=== PATIENT | female | born 1940 | race Caucasian/White ===

== ENCOUNTER 2018-12-22 10:45 | Emergency (ER) | payer OTHER ==
--- NOTE | 2018-12-22 13:55 | ER ---
Nurse's Notes [facility] Name: Yeison Ellis Age: 78 yrs Sex: Female : 1940 Arrival Date: 12/22/2018 Time: 10:47 Bed 2 Private MD: Diagnosis: Other disorders of skin and subcutaneous tissue, not elsewhere classified Presentation: 12/22 10:52 Presenting complaint: Patient states: wound to the LLE for about a month, unknown if sv she got bit by an insect. Transition of care: patient was not received from another setting of care. Onset of symptoms was November 2018. Risk Assessment: Do you want to hurt yourself or someone else? Patient reports no desire to harm self or others. Care prior to arrival: None. 10:52 Method Of Arrival: Ambulatory sv 10:52 Acuity: ALEXIS 3 sv 10:52 Initial Sepsis Screen: Does the patient meet any 2 criteria? No. Patient's initial bp sepsis screen is negative. Does the patient have a suspected source of infection? No. Patient's initial sepsis screen is negative. Triage Assessment: 10:55 Bite description: bite sustained to medial aspect of left calf is infected, by an sv unknown animal, animal information: vaccination(s) is unknown. General: Appears in no apparent distress. comfortable, Behavior is calm, cooperative, appropriate for age. Neuro: Level of Consciousness is awake, alert, obeys commands, Gait is steady. Respiratory: Respiratory effort is even, unlabored, Respiratory pattern is regular, symmetrical. Derm: Wound noted Wound is open, pt reports using hydrogen peroxide and cream daily. Musculoskeletal: Swelling present in left leg. Historical: - Allergies: 10:53 Darvocet-N 100; sv 10:53 EGG/POULTRY; sv - PMHx: 10:53 Arthritis; Hypertension; Kidney stones; Myocardial infarction; sv - PSHx: 10:53 Tubal ligation; Hysterectomy; sv - Immunization history:: Adult Immunizations up to date. - Social history:: Smoking status: Patient/guardian denies using tobacco. - Ebola Screening: : No symptoms or risks identified at this time. Screenin:16 Abuse screen: Denies threats or abuse. Denies injuries from another. Nutritional bp screening: No deficits noted. Tuberculosis screening: No symptoms or risk factors identified. Fall Risk None identified. Assessment: 10:55 General: Appears in no apparent distress. comfortable, Behavior is cooperative, bp appropriate for age, anxious. Pain: Denies pain. Neuro: No deficits noted. Cardiovascular: No deficits noted. Respiratory: No deficits noted. GI: No signs and/or symptoms were reported involving the gastrointestinal system. : No signs and/or symptoms were reported regarding the genitourinary system. EENT: No deficits noted. Derm: Skin is thin, Skin is normal, Wound noted Other: SCATTERED LESIONS. Musculoskeletal: No deficits noted. 14:16 Reassessment: PT D/C HOME AMBULATORY WITH FAMILY, DX WITH D/O OF SKIN AND CUTANEOUS bp TISSUE. Vital Signs: 10:53 BP 144 / 57; Pulse 71; Resp 16; Temp 99.2; Pulse Ox 99% ; Weight 72.57 kg; Height 5 ft. sv 2 in. (157.48 cm); 10:53 Body Mass Index 29.26 (72.57 kg, 157.48 cm) sv ED Course: 10:47 Patient arrived in ED. as 10:53 Triage completed. sv 10:55 Arm band placed on. sv 11:15 Gladys Trevino FNP-C is PHCP. snw 11:15 Jim Delgado MD is Attending Physician. snw 13:27 Barbara Grubbs RN is Primary Nurse. tw2 14:16 Patient has correct armband on for positive identification. Bed in low position. Call bp light in reach. Side rails up X2. 14:16 No provider procedures requiring assistance completed. Patient did not have IV access bp during this emergency room visit. Administered Medications: 13:58 Drug: Clindamycin 300 mg Route: PO; bp 14:13 Follow up: Response: No adverse reaction bp 13:58 Drug: Tetanus-Diphtheria Toxoid Adult 0.5 ml {Etl Lead: [employer]. Exp: bp 08/19/2020. Lot #: [id number]. } Route: IM; Site: left deltoid; 14:13 Follow up: Response: No adverse reaction bp 14:13 Drug: Hibiclens 4 % 1 application Route: Topical; Site: affected area; bp Outcome: 13:55 Discharge ordered by MD. snw 14:16 Discharged to home ambulatory, with family. bp 14:16 Condition: stable 14:16 Discharge instructions given to patient, Instructed on discharge instructions, follow up and referral plans. medication usage, wound care, Demonstrated understanding of instructions, follow-up care, medications, wound care, Prescriptions given X 2. 14:17 Patient left the ED. bp Signatures: Hortensia Gomez, RN RN sv Gladys Trevino, MULTIMEDIA SPECIALIST-C MULTIMEDIA SPECIALIST-Csnw Chiquita Wooten Tara, RN RN tw2 Daniel Pineda RN RN bp Corrections: (The following items were deleted from the chart) 10:56 10:53 Pulse 71bpm; Resp 16bpm; Pulse Ox 99%; Temp 99.2F; 72.57 kg; Height 5 ft. 2 in.; sv BMI: 29.2; sv
--- NOTE | 2018-12-22 13:56 | EDPHYS ---
Physician Documentation [facility] Name: Yeison Ellis Age: 78 yrs Sex: Female : 1940 Arrival Date: 12/22/2018 Time: 10:47 Bed 2 Private MD: NITA Physician Jim Delgado HPI: 12/22 13:50 This 78 yrs old Female presents to ER via Ambulatory with complaints of snw Insect Bite. 13:50 The patient's rash thought to be caused by Dermatitis. The rash is located on the left snw leg and medial aspect of left calf, right shoulder. The rash can be described as patchy, excoriated lesions that are new with surrounding healed scars from similar episodes. Onset: The symptoms/episode began/occurred last month. Associated signs and symptoms: Pertinent positives: None. Treatment given at home: aloe, packing with creams, etc. The patient has experienced similar episodes in the past. It is unknown whether or not the patient has recently seen a physician. encouraged to keep nails short. Historical: - Allergies: 10:53 Darvocet-N 100; sv 10:53 EGG/POULTRY; sv - PMHx: 10:53 Arthritis; Hypertension; Kidney stones; Myocardial infarction; sv - PSHx: 10:53 Tubal ligation; Hysterectomy; sv - Immunization history:: Adult Immunizations up to date. - Social history:: Smoking status: Patient/guardian denies using tobacco. - Ebola Screening: : No symptoms or risks identified at this time. ROS: 13:43 Constitutional: Negative for fever, chills, and weight loss, Eyes: Negative for injury, snw pain, redness, and discharge, ENT: Negative for injury, pain, and discharge, Neck: Negative for injury, pain, and swelling, Cardiovascular: Negative for chest pain, palpitations, and edema, Respiratory: Negative for shortness of breath, cough, wheezing, and pleuritic chest pain, Abdomen/GI: Negative for abdominal pain, nausea, vomiting, diarrhea, and constipation, Back: Negative for injury and pain, : Negative for injury, bleeding, discharge, and swelling, MS/Extremity: Negative for injury and deformity, Neuro: Negative for headache, weakness, numbness, tingling, and seizure, Psych: Negative for depression, anxiety, suicide ideation, homicidal ideation, and hallucinations. 13:43 Skin: Positive for concern for non-healing insect bites. Exam: 13:43 Constitutional: This is a well developed, well nourished patient who is awake, alert, snw and in no acute distress. Head/Face: Normocephalic, atraumatic. Eyes: Pupils equal round and reactive to light, extra-ocular motions intact. Lids and lashes normal. Conjunctiva and sclera are non-icteric and not injected. Cornea within normal limits. Periorbital areas with no swelling, redness, or edema. ENT: Nares patent. No nasal discharge, no septal abnormalities noted. Tympanic membranes are normal and external auditory canals are clear. Oropharynx with no redness, swelling, or masses, exudates, or evidence of obstruction, uvula midline. Mucous membranes moist. Neck: Trachea midline, no thyromegaly or masses palpated, and no cervical lymphadenopathy. Supple, full range of motion without nuchal rigidity, or vertebral point tenderness. No Meningismus. Chest/axilla: Normal chest wall appearance and motion. Nontender with no deformity. No lesions are appreciated. Cardiovascular: Regular rate and rhythm with a normal S1 and S2. No gallops, murmurs, or rubs. Normal PMI, no JVD. No pulse deficits. Respiratory: Lungs have equal breath sounds bilaterally, clear to auscultation and percussion. No rales, rhonchi or wheezes noted. No increased work of breathing, no retractions or nasal flaring. Abdomen/GI: Soft, non-tender, with normal bowel sounds. No distension or tympany. No guarding or rebound. No evidence of tenderness throughout. Back: No spinal tenderness. No costovertebral tenderness. Full range of motion. MS/ Extremity: Pulses equal, no cyanosis. Neurovascular intact. Full, normal range of motion. Neuro: Awake and alert, GCS 15, oriented to person, place, time, and situation. Cranial nerves II-XII grossly intact. Motor strength 5/5 in all extremities. Sensory grossly intact. Cerebellar exam normal. Normal gait. 13:43 Skin: Appearance: normal except for affected area, many scarred areas to extremities and upper shoulders from previous "sores", pt with long nails and evidence of recurrent picking. Talks about maybe seeing black bugs come from different sores, packs wounds with aloe and creams. Pt with some psychogenic parasitosis behaviors. 13:43 Psych: Behavior/mood is pleasant, cooperative, anxious, Affect is animated, Oriented to person, place, time, Patient has no thoughts/intents to harm self or others. psychogenic parasitosis type conversation. Wounds are not currently infected but are excoriated.. Vital Signs: 10:53 BP 144 / 57; Pulse 71; Resp 16; Temp 99.2; Pulse Ox 99% ; Weight 72.57 kg; Height 5 ft. sv 2 in. (157.48 cm); 10:53 Body Mass Index 29.26 (72.57 kg, 157.48 cm) sv MDM: 13:02 Patient medically screened. snw 13:56 Data reviewed: vital signs, nurses notes. Data interpreted: Pulse oximetry: on room air snw is 99 %. Interpretation: normal. Counseling: I had a detailed discussion with the patient and/or guardian regarding: the historical points, exam findings, and any diagnostic results supporting the discharge/admit diagnosis, the presence of at least one elevated blood pressure reading (>120/80) during this emergency department visit, the need for outpatient follow up, to return to the emergency department if symptoms worsen or persist or if there are any questions or concerns that arise at home. Special discussion: Based on the history and exam findings, there is no indication for further emergent testing or inpatient evaluation. I discussed with the patient/guardian the need to see the paper core machine operator for further evaluation of the symptoms. I discussed with the patient/guardian the need to see the primary care provider for further evaluation of the symptoms. Administered Medications: 13:58 Drug: Clindamycin 300 mg Route: PO; bp 14:13 Follow up: Response: No adverse reaction bp 13:58 Drug: Tetanus-Diphtheria Toxoid Adult 0.5 ml {Accountant Budget: [employer]. Exp: bp 08/19/2020. Lot #: [id number]. } Route: IM; Site: left deltoid; 14:13 Follow up: Response: No adverse reaction bp 14:13 Drug: Hibiclens 4 % 1 application Route: Topical; Site: affected area; bp Disposition: 12/23 07:47 Co-signature as Attending Physician, Jim Delgado MD I agree with the assessment and lily plan of care. Disposition: 09/16/19 13:55 Discharged to Home. Impression: Other disorders of skin and subcutaneous tissue, not elsewhere classified. - Condition is Stable. - Discharge Instructions: Rash. - Prescriptions for Hibiclens - wash 1 application by TOPICAL route 2 times per day; 1 bottle. Clindamycin HCl 300 mg Oral Capsule - take 1 capsule by ORAL route every 8 hours for 10 days; 30 capsule. - Medication Reconciliation Form, Thank You Letter, Antibiotic Education, Prescription Opioid Use form. - Follow up: Private Physician; When: 5 - 6 days; Reason: Recheck today's complaints, Continuance of care, Re-evaluation by your physician. Follow up: Emergency Department; When: As needed; Reason: Worsening of condition. Signatures: Hortensia Gomez, RN RN Jim Samano MD MD cha Therrien, Shelly, GARY-C TOOL AND DIE MANAGER-[place] Daniel Pineda RN RN bp Corrections: (The following items were deleted from the chart) 12/22 14:17 13:55 12/22/2018 13:55 Discharged to Home. Impression: Other disorders of skin and bp subcutaneous tissue, not elsewhere classified. Condition is Stable. Forms are Medication Reconciliation Form, Thank You Letter, Antibiotic Education, Prescription Opioid Use. Follow up: Private Physician; When: 5 - 6 days; Reason: Recheck today's complaints, Continuance of care, Re-evaluation by your physician. Follow up: Emergency Department; When: As needed; Reason: Worsening of condition. snw
[2018-12-22 14:31] VITALS: BP 144/57; TEMP 99.2; O2SAT 99
== END 2018-12-22 14:17 | disposition home or self-care (01) ==
LOC: ER 10:45
DX: L98.8 Other specified disorders of the skin and subcutaneous tissue (principal); W57.XXXA Bitten or stung by nonvenomous insect and other nonvenomous arthropods, initial encounter; Z23 Encounter for immunization; Z88.5 Allergy status to narcotic agent; Z91.012 Allergy to eggs; Z91.018 Allergy to other foods; I10 Essential (primary) hypertension
CPT/HCPCS: 90471; 99283

== ENCOUNTER 2019-05-25 07:22 | Day surgery (SDC) | payer OTHER ==
[2019-05-21 17:22] LABS: Protime INR 0.98
[2019-05-21 17:23] LABS: Absolute Lymphocytes (CBC) 1.7 K/uL (0.7-4.9); Basophils % 1.3 % (0-1.3); Hematocrit 33.2 % (36.0-45.0); MPV 8.5 fL (7.6-11.3); RBC Red Blood Cell Count 3.59 M/uL (3.86-4.86)
[2019-05-21 17:27] LABS: Potassium 4.9 mmol/L (3.5-5.1)
--- NOTE | 2019-05-21 17:31 | RAD REPORT ---
EXAM DESCRIPTION: RAD - Chest Pa And Lat (2 Views) - 05/21/2019 5:07 pm CLINICAL HISTORY: preoppreop chest, patient pending cardiac stenting procedure COMPARISON: Chest Single View dated 03/07/2017; Chest Single View dated 03/01/2017 TECHNIQUE: Frontal and lateral views of the chest were obtained. FINDINGS: The lungs are normal volume. Mild chronic interstitial lung disease present at each base. Findings are slightly worse in the left base. No dense consolidation component. No failure or volume overload. Heart size is normal and central vasculature is within normal limits. No pleural effusio n or pneumothorax seen. No acute bony finding noted. No aortic abnormality. IMPRESSION: Mild left base interstitial pneumonia superimposed on a mild chronic lung disease patter brad
[~2019-05-25 07:22] MED LIST: HEPA 1000U/500MLS 2,000 UNIT/1,000 ML BAG IV ONE; LIDOCAINE 1% 20 ML MDV ONE
[2019-05-25] MEDS ORDERED: NA CHLORIDE 0.9% 500 ML ONE (07:34)
[2019-05-25] MEDS ORDERED: ATROPINE SULF 1 MG/10 ML SYR IV ONE (08:07)
[2019-05-25] MEDS ORDERED: FENTANYL CITR 100 MCG/2 ML ONE ×2 (08:07→08:51)
[2019-05-25] MEDS ORDERED: MIDAZOLAM HCL 2 MG/2 ML INJ ONE ×3 (08:07→08:42)
[2019-05-25] MEDS ORDERED: NA CHLORIDE 0.9% 50 ML ONE (08:07)
[2019-05-25] MEDS ORDERED: NITROGLYCERIN/D5W 25 MG/250 ML BTL IV ONE (08:08)
[2019-05-25] MEDS ORDERED: NITROGLYCERIN 100 MCG/ML SYR (for cath lab use only) IV ONE (08:08)
[2019-05-25] MEDS ORDERED: FLUMAZENIL 0.1 MG/ML (5 mL VIAL) IV ONE (08:23)
[2019-05-25] MEDS ORDERED: PRASUGREL (EFFIENT) 10 MG TAB ONE (09:06)
[2019-05-25] MEDS ORDERED: ZOLPIDEM TARTRATE 10 MG TABLET PO PRN (09:13)
[2019-05-25] MEDS ORDERED: FENTANYL CITR 100 MCG/2 ML IV PRN (09:13)
[2019-05-25] MEDS ORDERED: HYDROCODONE/APAP 10/325 TAB ONE (10:49)
--- NOTE | 2019-05-25 11:50 | OP ---
Surgeon: Ed Brown MD Identification: Mrs. Ellis is 78. Procedure: Left heart catheterization, coronary angiography. No LV gram was done to reduce contrast exposure. We did a percutaneous coronary intervention. A stent was placed in the main body of her circumflex segment 19. Successful stent to treat what looks like the culprit lesion. Procedure Findings: The patient has diffuse CAD. No portion of the coronary arteries is normal. He r left main is short and it gives rise to a circumflex. The ostium of the circumflex has a 50% lesio n. It branches into 2 major branches. Before it branches, there is a 90% stenosis. In the larger o f the 2 branches, there is an old stent and just previous to the stent, but in the OM, there is a smo oth 50% lesion that did not look clinically significant. After the stent, the lesion in the body of the circumflex had about a 10% stenosis. The LAD is free of any significant stenosis. There are num erous 30% to 40% stenoses and a patent stent in the proximal and mid section. The right coronary art waldemar has no stents in it. There is a 50% proximal lesion that looks fairly smooth and likely not to b e the culprit lesion. Procedure In Detail: The patient had tiny radial arteries and a poor Fili's test, so we elected to use the right femoral artery. She was prepared and draped in usual sterile fashion. She was pretrea carson with steroids to avoid contrast allergy. We entered the artery using an 18-gauge needle, cannula carson it with a guidewire, placed a 4-Belgian sheath. We took angiograms with a 4-Belgian JL4 and 4-Fren 3DRC. After decision was made to stent the circumflex, we changed to a 6-Belgian sheath. We place d a 6-Belgian XB3.5 with side holes, but it would not engage the left ostium, the curve was too large, so we changed to an XB3.0. This engaged the left main ostium nicely. We were able to pass a wire a cross the lesion. We then placed a stent across the lesion, inflated it to 14 atmospheres. The sten t was a 2.5 x 12 Synergy. At the end of the procedure, adequate angiography was seen. All the hardw are was withdrawn but of course, the stent was left in place. An angiogram was done of the femoral a rtery. We could see that the sheath went in at least 1 cm above the bifurcation so we are going to u se Angio-Seal to close. She received Angiomax for activated clotting time, was 390 seconds. We pull ed the sheath when the activated clotting time was less than 300 seconds. JANIS/AUDRA Voice ID: [id number] Report ID: [id number]
[2019-05-25 12:04] VITALS: BMI 29.4
[2019-05-25] MEDS: HYDROCODONE/APAP 10/325 TAB PO PRN (14:54)
[2019-05-25] MEDS: SILVER SULFADIAZINE 1% 50 GM TOP SCH (17:52)
[2019-05-25] MEDS: METOPROLOL TAR 25 MG TAB PO SCH (19:25)
[2019-05-26 05:00] LABS: Hematocrit 29.2 % (36.0-45.0); RBC Red Blood Cell Count 3.17 M/uL (3.86-4.86)
[2019-05-26 05:08] LABS: Potassium 4.3 mmol/L (3.5-5.1)
[2019-05-26] MEDS: METOPROLOL TAR 25 MG TAB PO SCH (05:19)
[2019-05-26] MEDS: HYDROCODONE/APAP 10/325 TAB PO PRN ×2 (07:59→16:32)
[2019-05-26] MEDS ORDERED: FAMOTIDINE 20 MG TAB PO SCH (09:00)
[2019-05-26] MEDS ORDERED: CLOPIDOGREL 75 MG TABLET PO SCH (09:00)
[2019-05-26] MEDS ORDERED: ramipriL 5 MG CAP PO SCH (09:00)
[2019-05-26 11:28] VITALS: O2SAT 99
[2019-05-26] MEDS: SILVER SULFADIAZINE 1% 50 GM TOP SCH (12:09)
--- NOTE | 2019-05-26 13:35 | PN ---
Subjective: Ms. Ellis was admitted by Dr. Brown yesterday as an outpatient. She underwent a heart catheterization and a stent. There was no complication during the procedure. Postoperatively, her r ight groin is intact. She has no hematoma. Good distal pulses in the right dorsalis pedis and poste rior tibial. Telemetry is normal. She has no chest pain. Objective: Chest: Clear. Cardiac: Normal. Plan: She will be going home today on aspirin, Plavix, statin, and a beta-ilya. She has these me dications at home. She will go home today and see us in the office in the next 2 weeks. PASHA/AUDRA Voice ID: [id number] Report ID: [id number]
[2019-05-26 17:17] VITALS: BP 147/65; TEMP 98.3
== END 2019-05-26 18:12 | disposition home or self-care (01) ==
LOC: CCL 07:22 → 2ND 09:07 → CCL 05-26 18:12
PROVIDERS: ATTEND Internal Medicine
DX: I25.110 Atherosclerotic heart disease of native coronary artery with unstable angina pectoris (principal); I70.25 Atherosclerosis of native arteries of other extremities with ulceration; I10 Essential (primary) hypertension; E11.9 Type 2 diabetes mellitus without complications; Z95.5 Presence of coronary angioplasty implant and graft; Z91.041 Radiographic dye allergy status; Z79.02 Long term (current) use of antithrombotics/antiplatelets; Z79.82 Long term (current) use of aspirin; Z88.8 Allergy status to other drugs, medicaments and biological substances; Z91.012 Allergy to eggs; Z91.018 Allergy to other foods; Z82.49 Family history of ischemic heart disease and other diseases of the circulatory system
CPT/HCPCS: 85025; 80048 ×2; 36415 ×2; 85610; 82947; 85347 ×3; 85730; 85027; 71046; 93454; C1893; C1760; C1725; C9600; J2250 ×3; J3010 ×2; J0583; J7040

== ENCOUNTER → 2019-07-30 | Day surgery (SDC) | payer OTHER ==
[2019-07-29 12:57] LABS: Absolute Lymphocytes (CBC) 1.6 K/uL (0.7-4.9); Basophils % 1.9 % (0-1.3); MPV 8.2 fL (7.6-11.3); RBC Red Blood Cell Count 3.62 M/uL (3.86-4.86)
--- NOTE | 2019-07-29 13:02 | RAD REPORT ---
EXAM DESCRIPTION: Dylan Valerio (2 Views)07/29/2019 12:53 pm CLINICAL HISTORY: Preop coronary artery catheterization COMPARISON: May 2019 FINDINGS: The lungs appear clear of acute infiltrate. The heart is mildly enlarged IMPRESSION: No acute abnormalities displayed
[2019-07-29 13:06] LABS: Protime INR 0.96
[2019-07-29 13:19] LABS: Potassium 5.6 mmol/L (3.5-5.1)
[~2019-07-30] MED LIST changes: +FENTANYL CITR 100 MCG/2 ML ONE; +METHYLPREDNISOLONE 125 MG INJ ONE; +MIDAZOLAM HCL 2 MG/2 ML INJ ONE; +NA CHLORIDE 0.9% 500 ML ONE
--- NOTE | 2019-07-30 10:13 | OP ---
Date of Procedure: 07/30/2019 Surgeon: Rg Frey MD Fabrication Mig Welder: Marko Wheeler. Procedure: Abdominal angiogram with runoff. Indication: Peripheral arterial disease with claudication. History Of Present Illness: Ms. Ellis is a 78-year-old woman with history of CAD, status post multip le stents. She also has had right carotid stent. She had her last stent in May of 2019 in the circumflex proximal. Have classic claudication symptoms bilaterally, was admitted for abdominal shivam ogram with runoff today. She has allergies to iodine. She was given Solu-Medrol before the procedur e. She was prepped and draped in the routine sterile fashion. She was given Versed and fentanyl for sedation. A 6-Israeli sheath introduced in the right common femoral artery successfully. We decided to do manual pressure holding in that region after the case was done. A pigtail catheter was introd uced above the renal arteries and the aorta. Abdominal angiogram with runoff was done. This showed normal bilateral renals, normal aorta, normal iliacs, normal SFA bilaterally. [id number] on the left side, she had a total occlusion of her posterior tibial and peroneal. On the right side of her leg, she had diffuse disease of all 3 vessels; anterior tibial, posterior tibial and peroneal diffuse ly. There were no complications. Estimated Blood Loss: 5 mL. Anesthesia: Total conscious sedation was 45 minutes. 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 Plan: Plan is for medical therapy. The patient will go home today after 4-hour bedrest and I will s ee her in the office in the next 2 to 3 weeks. She will continue her present regimen for now. I will consider Trental or Pletal down the road. PASHA/AUDRA Voice ID: [id number] Report ID: [id number]
[2019-07-30 11:54] VITALS: O2SAT 98
[2019-07-30 12:27] VITALS: BP 112/51; TEMP 98.2
== END ==
LOC: CCL 06:14
DX: I70.213 Atherosclerosis of native arteries of extremities with intermittent claudication, bilateral legs (principal); I70.92 Chronic total occlusion of artery of the extremities; I67.9 Cerebrovascular disease, unspecified; I35.9 Nonrheumatic aortic valve disorder, unspecified; I34.9 Nonrheumatic mitral valve disorder, unspecified; I10 Essential (primary) hypertension; E78.5 Hyperlipidemia, unspecified; E11.9 Type 2 diabetes mellitus without complications; I25.2 Old myocardial infarction; Z88.6 Allergy status to analgesic agent; Z91.041 Radiographic dye allergy status; Z88.8 Allergy status to other drugs, medicaments and biological substances; Z91.012 Allergy to eggs; Z91.018 Allergy to other foods; Z82.49 Family history of ischemic heart disease and other diseases of the circulatory system
CPT/HCPCS: 85025; 80048; 36415; 84132; 85610; 85730; 71046; 36200; 75630; C1893; J2250 ×3; J3010 ×2; J7040; J2930

== ENCOUNTER 2019-09-10 20:45 | Inpatient (IN) | payer OTHER ==
[2019-09-10 21:15] LABS: Absolute Lymphocytes (CBC) 1.6 K/uL (0.7-4.9); Basophils % 1.1 % (0-1.3); Hematocrit 33.9 % (36.0-45.0); Lymphocytes % 22.7 % (15.3-44.8); MPV 8.7 fL (7.6-11.3); RBC Red Blood Cell Count 3.69 M/uL (3.86-4.86)
[2019-09-10 21:17] LABS: Protime INR 0.99
[2019-09-10 21:27] LABS: ALT/SGPT 15 U/L (12-78); AST/SGOT 15 U/L (15-37); BUN Blood Urea Nitrogen 35 mg/dL (7-18); Bicarbonate 24 mmol/L (21-32); Bilirubin Direct 0.1 mg/dL (0-0.2); Bilirubin Total 0.6 mg/dL (0.2-1.0); Glucose Level 166 mg/dL (74-106); Magnesium 2.2 mg/dL (1.8-2.4); NT PRO-BNP 1429 pg/mL (<450); Potassium 5.5 mmol/L (3.5-5.1); Protein, Total 7.7 g/dL (6.4-8.2); Sodium Level 141 mmol/L (136-145); Troponin (Emerg Dept Use Only) 0.25 ng/mL (0.0-0.045)
[2019-09-10 21:33] LABS: Alkaline Phosphatase < 10 U/L (45-117)
[2019-09-10 21:37] LABS: Arterial Blood Carboxyhemoglob 1.1 % (0-1.5); Blood O2 Saturation 96.7 % (92-98.5)
--- NOTE | 2019-09-10 23:37 | EDPHYS ---
Physician Documentation [facility] Name: Yeison Ellis Age: 78 yrs Sex: Female : 1940 Arrival Date: 09/10/2019 Time: 20:46 Bed 4 Private MD: ED Physician Edgar Hart HPI: 09/09 21:04 This 78 yrs old Female presents to ER via EMS with complaints of Chest Pain. pkl 21:04 The patient or guardian reports chest pain that is located primarily in the substernal pkl area. Onset: just prior to arrival, 1 hour(s) ago. The pain does not radiate. Associated signs and symptoms: Pertinent positives: cough. The chest pain is described as burning. Patient said she has been having chest pain off and on for a month. Also complained of coughing up blood tonight. Historical: - Allergies: 20:59 Darvocet-N 100; fc 20:59 EGG/POULTRY; fc - Home Meds: 20:59 Metoprolol Tartrate Oral 2 times per day [Active]; Altace Oral once daily [Active]; fc Plavix 75 mg Oral tab 1 tab once daily [Active]; - PMHx: 20:59 Arthritis; Hypertension; neuropathy; Rheumatoid Arthritis; Back pain; Chronic pain; fc Kidney stones; Myocardial infarction; - PSHx: 20:59 Hysterectomy; Tubal ligation; Heart stents; Appendectomy; Cholecystectomy; fc - Immunization history:: Last tetanus immunization: unknown, Pneumococcal vaccine is not up to date, Flu vaccine is not up to date. - Social history:: Smoking status: Patient denies any tobacco usage or history of. Patient/guardian denies using alcohol, street drugs. ROS: 21:04 Eyes: Negative for injury, pain, redness, and discharge, ENT: Negative for injury, pkl pain, and discharge, Neck: Negative for injury, pain, and swelling. 21:04 Cardiovascular: Positive for chest pain. 21:04 Respiratory: Positive for cough, bloody sputum. 21:04 Abdomen/GI: Negative for abdominal pain, nausea, vomiting, and diarrhea. 21:04 Back: Negative for acute changes. 21:04 : Negative for urinary symptoms. 21:04 MS/extremity: Negative for acute changes. 21:04 Skin: Negative for rash. 21:04 Neuro: Negative for altered mental status, loss of consciousness. Exam: 21:04 Head/Face: Normocephalic, atraumatic. Eyes: Pupils equal round and reactive to light, pkl extra-ocular motions intact. Lids and lashes normal. Conjunctiva and sclera are non-icteric and not injected. Cornea within normal limits. Periorbital areas with no swelling, redness, or edema. ENT: Nares patent. No nasal discharge, no septal abnormalities noted. Tympanic membranes are normal and external auditory canals are clear. Oropharynx with no redness, swelling, or masses, exudates, or evidence of obstruction, uvula midline. Mucous membranes moist. Neck: Trachea midline, no thyromegaly or masses palpated, and no cervical lymphadenopathy. Supple, full range of motion without nuchal rigidity, or vertebral point tenderness. No Meningismus. Chest/axilla: Normal chest wall appearance and motion. Nontender with no deformity. No lesions are appreciated. Cardiovascular: Regular rate and rhythm with a normal S1 and S2. No gallops, murmurs, or rubs. Normal PMI, no JVD. No pulse deficits. 21:04 Respiratory: the patient does not display signs of respiratory distress, Respirations: normal, Breath sounds: are clear throughout. 21:04 Abdomen/GI: Bowel sounds: normal, Palpation: abdomen is soft and non-tender, in all quadrants. 21:04 Back: Exam negative for acute changes. 21:04 : Exam negative for acute changes. 21:04 Musculoskeletal/extremity: Exam is negative for acute changes. 21:04 Skin: Exam negative for rash. 21:04 Neuro: Orientation: is normal, Mentation: is normal, Cranial nerves: grossly normal, Motor: is normal. Vital Signs: 20:43 BP 173 / 82; Pulse 84; Resp 18; Temp 98.6(O); Pulse Ox 96% on R/A; Weight 70.31 kg (R); fc Height 5 ft. 2 in. (157.48 cm) (R); Pain 2/10; 21:42 BP 107 / 97; Pulse 68; Resp 19; Pulse Ox 99% ; rr5 22:46 BP 141 / 54; Pulse 64; Resp 18; Pulse Ox 98% ; rr5 23:44 BP 191 / 84; Pulse 68; Resp 19; Pulse Ox 100% ; rr5 06/05 00:45 BP 136 / 52; Pulse 61; Resp 16; Pulse Ox 98% on R/A; rr5 02:00 BP 141 / 62; Pulse 69; Resp 16; Pulse Ox 98% on R/A; rr5 09/09 20:43 Body Mass Index 28.35 (70.31 kg, 157.48 cm) [facility]: 09/09 20:59 Patient medically screened. pkl 23:34 Data reviewed: vital signs, nurses notes, lab test result(s), EKG, radiologic studies, pkl plain films. 09/09 20:52 Order name: Basic Metabolic Panel; Complete Time: 22:00 09/09 20:52 Order name: CBC with Diff; Complete Time: 22:00 09/09 20:52 Order name: LFT's; Complete Time: 22:00 09/09 20:52 Order name: Magnesium; Complete Time: 22:00 09/09 20:52 Order name: NT PRO-BNP; Complete Time: 22:00 09/09 20:52 Order name: PT-INR; Complete Time: 22:00 09/09 20:52 Order name: Troponin (emerg Dept Use Only); Complete Time: 22:00 09/09 21:03 Order name: ABG; Complete Time: 23:29 pk 09/09 21:12 Order name: D-Dimer; Complete Time: 22:00 EDMS 09/10 00:58 Order name: Lipid Profile [facility] 09/10 00:58 Order name: Lipid Profile [facility] 09/10 00:58 Order name: Troponin I [facility] 09/10 00:58 Order name: Troponin I [facility] 09/09 20:52 Order name: XRAY Chest (1 view) 09/09 20:52 Order name: EKG; Complete Time: 20:53 09/09 20:52 Order name: Cardiac monitoring; Complete Time: 20:58 09/09 20:52 Order name: EKG - Nurse/Tech; Complete Time: 20:58 09/09 20:52 Order name: IV Saline Lock; Complete Time: 21:08 09/09 20:52 Order name: Labs collected and sent; Complete Time: 20:58 09/09 20:52 Order name: O2 Per Protocol; Complete Time: 20:58 09/09 20:52 Order name: O2 Sat Monitoring; Complete Time: 20:59 09/10 00:58 Order name: CONS Physician Consult [facility] 09/10 00:58 Order name: Echo with Doppler [facility] 09/10 00:58 Order name: Troponin I [facility] Administered Medications: 23:45 Drug: Nitroglycerin 0.4 mg Route: Sublingual; rr5 09/10 01:51 Follow up: Response: No adverse reaction rr5 Disposition: 09/10/19 23:36 Hospitalization ordered by Osman Soares for Observation. Preliminary diagnosis is Chest pain. Elevated Troponin. Hemoptysis . - Bed requested for Telemetry/MedSurg (observation). - Status is Observation. rr5 - Condition is Stable. - Problem is new. - Symptoms have improved. Signatures: Dispatcher [employer] [facility] Carli Cordoba RN RN Edgar Hart MD MD pkAsuncion Choi RN RN Juan J Coyle RN RN rr5 Corrections: (The following items were deleted from the chart) 09/09 21:12 21:03 D-DIMER+COAG.LAB.BRZ ordered. [facility] 09/10 01:03 06 23:36 Hospitalization Ordered by Osman Soares MD for Observation. Preliminary diagnosis is Chest pain. Elevated Troponin. Hemoptysis . Bed requested for Telemetry/MedSurg (observation). Status is Observation. Condition is Stable. Problem is new. Symptoms have improved. [facility] 09/10 02:23 01:03 09/10/2019 23:36 Hospitalization Ordered by Osman Soares MD for Observation. rr5 Preliminary diagnosis is Chest pain. Elevated Troponin. Hemoptysis . Bed requested for Telemetry/MedSurg (observation). Status is Observation. Condition is Stable. Problem is new. Symptoms have improved. dw
--- NOTE | 2019-09-10 23:37 | ER ---
Nurse's Notes [facility] Name: Yeison Ellis Age: 78 yrs Sex: Female : 1940 Arrival Date: 09/10/2019 Time: 20:46 Bed 4 Private MD: Diagnosis: Chest pain. Elevated Troponin. Hemoptysis Presentation: 09/09 20:43 Chief complaint: EMS states: that they were toned for pt having chest pain that started fc at 1944. Took Ibuprofen 600 mg and Aspirin 325 mg x 2 prior to EMS arrival. Pt also coughed up blood just prior to EMS arrival. She denies having cough before that and denies any fever. Coronavirus screen: Proceed with normal triage. Patient denies a cough. Patient denies shortness of breath or difficulty breathing. Patient denies measured and/or subjective temperature greater than 100.4F prior to today's visit. Patient denies travel on a cruise ship or to a country the [facility] currently lists as an affected area. Patient denies contact with known and/or suspected case of COVID-19. Ebola Screen: Patient negative for fever greater than or equal to 101.5 degrees Fahrenheit, and additional compatible Ebola Virus Disease symptoms Patient denies exposure to infectious person. Patient denies travel to an Ebola-affected area in the 21 days before illness onset. Initial Sepsis Screen: Does the patient meet any 2 criteria? No. Patient's initial sepsis screen is negative. Does the patient have a suspected source of infection? No. Patient's initial sepsis screen is negative. Risk Assessment: Do you want to hurt yourself or someone else? Patient reports no desire to harm self or others. Onset of symptoms was September 10, 2019 at 19:45. Care prior to arrival: Medication(s) given: Nitroglycerin, 0.4 mg SL x 1, IV initiated. 20 GA, in the left antecubital area. Transition of care: patient was not received from another setting of care. 20:43 Method Of Arrival: EMS: [facility] 20:43 Acuity: ALEXIS 3 fc Historical: - Allergies: 20:59 Darvocet-N 100; fc 20:59 EGG/POULTRY; fc - Home Meds: 20:59 Metoprolol Tartrate Oral 2 times per day [Active]; Altace Oral once daily [Active]; fc Plavix 75 mg Oral tab 1 tab once daily [Active]; - PMHx: 20:59 Arthritis; Hypertension; neuropathy; Rheumatoid Arthritis; Back pain; Chronic pain; fc Kidney stones; Myocardial infarction; - PSHx: 20:59 Hysterectomy; Tubal ligation; Heart stents; Appendectomy; Cholecystectomy; fc - Immunization history:: Last tetanus immunization: unknown, Pneumococcal vaccine is not up to date, Flu vaccine is not up to date. - Social history:: Smoking status: Patient denies any tobacco usage or history of. Patient/guardian denies using alcohol, street drugs. Screenin:53 Abuse screen: Denies threats or abuse. Denies injuries from another. Nutritional rr5 screening: No deficits noted. Tuberculosis screening: No symptoms or risk factors identified. Fall Risk IV access (20 points). Total Strong Fall Scale indicates No Risk (0-24 pts). Assessment: 20:45 General: Appears in no apparent distress. comfortable, Behavior is calm, cooperative, rr5 appropriate for age. 20:45 Pain: Complains of pain in chest Pain does not radiate. Pain radiates to back Pain rr5 currently is 2 out of 10 on a pain scale. Quality of pain is described as aching, Pain began gradually, Is intermittent. Neuro: Level of Consciousness is awake, alert, obeys commands, Oriented to person, place, time, situation, Appropriate for age. Cardiovascular: Reports chest pain, Capillary refill < 3 seconds Patient's skin is warm and dry. Respiratory: Reports cough that is with blood Airway is patent Respiratory effort is even, unlabored, Respiratory pattern is regular, symmetrical. GI: No signs and/or symptoms were reported involving the gastrointestinal system. : No signs and/or symptoms were reported regarding the genitourinary system. EENT: No signs and/or symptoms were reported regarding the EENT system. Derm: Skin is intact, is healthy with good turgor, Skin temperature is warm. Musculoskeletal: Capillary refill < 3 seconds, Reports neuropathy. 21:52 Reassessment: Patient appears in no apparent distress at this time. Patient is alert, rr5 oriented x 3, equal unlabored respirations, skin warm/dry/pink. awaiting for results. 22:30 Reassessment: Patient appears in no apparent distress at this time. No changes from rr5 previously documented assessment. Patient is alert, oriented x 3, equal unlabored respirations, skin warm/dry/pink. 23:40 Reassessment: Patient appears in no apparent distress at this time. Patient and/or rr5 family updated on plan of care and expected duration. Pain level reassessed. Patient is alert, oriented x 3, equal unlabored respirations, skin warm/dry/pink. reassess by ED provider informed for the BP with order made and carried out. 09/10 00:45 Reassessment: Patient appears in no apparent distress at this time. resting eyes closed rr5 breathing spontaneously at room air. awaiting for room assignment. 02:00 Reassessment: Patient appears in no apparent distress at this time. Patient and/or rr5 family updated on plan of care and expected duration. Pain level reassessed. Patient is alert, oriented x 3, equal unlabored respirations, skin warm/dry/pink. Vital Signs: 09/09 20:43 BP 173 / 82; Pulse 84; Resp 18; Temp 98.6(O); Pulse Ox 96% on R/A; Weight 70.31 kg (R); fc Height 5 ft. 2 in. (157.48 cm) (R); Pain 2/10; 21:42 BP 107 / 97; Pulse 68; Resp 19; Pulse Ox 99% ; rr5 22:46 BP 141 / 54; Pulse 64; Resp 18; Pulse Ox 98% ; rr5 23:44 BP 191 / 84; Pulse 68; Resp 19; Pulse Ox 100% ; rr5 09/10 00:45 BP 136 / 52; Pulse 61; Resp 16; Pulse Ox 98% on R/A; rr5 02:00 BP 141 / 62; Pulse 69; Resp 16; Pulse Ox 98% on R/A; rr5 09/09 20:43 Body Mass Index 28.35 (70.31 kg, 157.48 cm) ED Course: 09/09 20:43 Arm band placed on Patient placed in an exam room, on a stretcher. fc 20:46 Patient arrived in ED. ds1 20:53 Juan J Coyle, PIEDAD is Primary Nurse. rr5 20:53 Patient has correct armband on for positive identification. Placed in gown. Bed in low rr5 position. Call light in reach. Side rails up X2. gambling monitor on. Pulse ox on. NIBP on. 20:53 Maintain EMS IV. Dressing intact. Good blood return noted. Site clean \T\ dry. Gauge \T\ rr 5 site: G20 left AC. 20:57 Triage completed. 20:59 Edgar Hart MD is Attending Physician. pkl 21:43 XRAY Chest (1 view) In Process Unspecified. EDMS 23:34 Osman Soares MD is Hospitalizing Provider. pkl 09/10 01:50 No provider procedures requiring assistance completed. Patient admitted, IV remains in rr5 place. intact, No redness/swelling at site. Patient maintains SpO2 saturation greater than 95% on room air. Administered Medications: 09/09 23:45 Drug: Nitroglycerin 0.4 mg Route: Sublingual; rr5 09/10 01:51 Follow up: Response: No adverse reaction rr5 Outcome: 09/09 23:36 Decision to Hospitalize by Provider. pkl 09/10 01:50 Admitted to Med/surg accompanied by tech, via stretcher, room 213, with chart, Report rr5 called to [facility] Condition: stable Instructed on the need for admit. 02:23 Patient left the ED. rr5 Signatures: Dispatcher [employer] EDNJ Edgar Hart MD MD pkAsuncion Choi RN RN Michaela Carrizales dsJuan J Shaffer, RN RN rr5
[2019-09-10] MEDS ORDERED: NITROGLYCERIN 0.4 MG/TAB SL ONE (23:50)
[2019-09-11] MEDS ORDERED: ALPRAZOLAM 0.25 MG TABLET PO PRN (00:51)
[2019-09-11] MEDS ORDERED: ACETAMINOPHEN 500 MG TAB PO PRN (00:51)
[2019-09-11] MEDS ORDERED: ONDANSETRON 4 MG/2 ML VIAL IV PRN (00:51)
[2019-09-11] MEDS ORDERED: D5W 1,000 ML IV ONE (02:06)
[2019-09-11] MEDS ORDERED: SODIUM BICARB 50 MEQ/50ML VIAL ONE (02:31)
[2019-09-11] MEDS: D5W 1,000 ML with NA BICARB 8.4% 50 MEQ IV SCH ×4 (02:44→11:30)
[2019-09-11] MEDS ORDERED: METOPROLOL TARTRATE 5 MG/5 ML INJ IV STA (03:03)
[2019-09-11] MEDS: MORPHINE 4 MG/ML SYR IV PRN ×3 (03:12→21:54)
[2019-09-11 04:04] VITALS: BMI 29.2
[2019-09-11] MEDS: CLOPIDOGREL 75 MG TABLET PO SCH ×2 (05:47→05:48)
[2019-09-11] MEDS ORDERED: METOPROLOL TAR 50 MG TAB PO SCH (06:00)
--- NOTE | 2019-09-11 07:45 | P.HP ---
Certification for Inpatient Patient admitted to: Inpatient With expected LOS: >2 Midnights Patient will require the following post-hospital care: None Practitioner: I am a practitioner with admitting privileges, knowledge of patient current condition, hospital course, and medical plan of care. Services: Services provided to patient in accordance with Admission requirements found in Title 42 Section 412.3 of the Code of Federal Regulations Patient History Date of Service: 09/11/19 Reason for admission: NSTEMI; ACUTE MYOCARDIAL INFARCTION History of Present Illness: Patient is a 78-year-old female who came into the hospital with chest discomfort. Patient has been having some chest discomfort and was short of breath. She came into the Emergency room for further evaluation. In the emergency room her initial troponin was slightly elevated. Her repeat was substantially elevated. Patient was scheduled for a heart catheterization this morning. Patient is currently also getting morphine. Patient is schedule for heart catheterization this morning. Allergies iodine Allergy (Verified 09/11/19 02:26) Itching/Hives/Rash propoxyphene napsylate [From Darvocet-N] Adverse Reaction (Intermediate, Verified 09/11/19 02:26) Nausea/Vomiting cauliflower Adverse Reaction (Verified 09/11/19 02:26) Nausea/Vomiting egg Adverse Reaction (Verified 09/11/19 02:26) Nausea/Vomiting Nflveiy-Zqp-Yug Reductase Inhibitor Adverse Reaction (Verified 09/11/19 02:26) Nausea/Vomiting Home Medications: Aspirin [Pura Chewable Aspirin] 81 mg PO DAILY 09/16/13 Clopidogrel Bisulfate [Plavix*] 75 mg PO DAILY #0 tablet 09/19/13 Hydrocodone Bit/Acetaminophen [Hydrocodon-Acetaminophn 10-500] 1 tab PO Q4H PRN #0 tablet 09/19/13 ramipriL [Altace*] 10 mg PO DAILY #0 cap 09/19/13 Metoprolol Tartrate [Lopressor*] 75 mg PO BID 01/01/19 Ranitidine [Zantac*] 150 mg PO DAILY PRN 01/01/19 - Past Medical/Surgical History Has patient received pneumonia vaccine in the past: Yes Diabetic: No -: Hypertension -: Clots in the legs -: CAD -: CHF -: History of SC -: Arthritis -: Spider bites in legs -: 3-pinged nerves at the back/sciatic nerve -: Neuropathy -: Chronic back pain -: Cardiac Stents -: Endoscopy -: Tubal Ligation -: Hysterectomy -: L knee repair -: galbladder removed -: hemorrhoidectomy -: clots in legs removed - Family History Brother Medical History: Heart disease, Hypertension Father Medical History: Heart disease, Hypertension - Social History Smoking Status: Never smoker Alcohol use: No CD- Drugs: No Caffeine use: Yes Place of Residence: Home Review of Systems 10-point ROS is otherwise unremarkable Physical Examination - Vital Signs Temperature: 97.6 F Blood Pressure: 137/63 Pulse: 58 Respirations: 16 Pulse Ox (%): 100 - Physical Exam General: Alert, In no apparent distress, Oriented x3 HEENT: Atraumatic, PERRLA, Mucous membr. moist/pink, EOMI, Sclerae nonicteric Neck: Supple, 2+ carotid pulse no bruit, No LAD, Without JVD or thyroid abnormality Respiratory: Clear to auscultation bilaterally, Normal air movement Cardiovascular: Regular rate/rhythm, Normal S1 S2, Systolic murmur Gastrointestinal: Normal bowel sounds, Soft and benign, Non-distended, No tenderness Musculoskeletal: No clubbing, No swelling, No tenderness Integumentary: No rashes Neurological: Normal gait, Normal speech, Normal strength at 5/5 x4 extr, Normal tone, Normal affect Lymphatics: No axilla or inguinal lymphadenopathy - Studies Laboratory Data (last 24 hrs) 09/10/19 20:50: PT 11.7, INR 0.99 09/10/19 20:50: WBC 7.2, Hgb 11.4 L, Hct 33.9 L, Plt Count 192 09/10/19 20:50: Sodium 141, Potassium 5.5 H, BUN 35 H, Creatinine 1.52 H, Glucose 166 H, Magnesium 2.2, Total Bilirubin 0.6, AST 15, ALT 15, Alkaline Phosphatase < 10 L Assessment & Plan - Problems (Diagnosis) (1) Acute myocardial infarction Status: Acute (2) Neuropathy Status: Acute (3) Chest pain Onset Date: 03/08/17 Status: Acute Qualifiers: (4) Congestive heart failure (CHF) Onset Date: 03/08/17 Status: Acute Qualifiers: (5) Diabetes Status: Acute (6) PAD (peripheral artery disease) Status: Acute (7) Coronary artery disease Onset Date: 03/08/17 Status: Chronic Qualifiers: - Plan 1. Cardiac catherization scheduled 2. Appreciate Cardiology consultation 3. Echocardiogram 4. Anti-platelet therapy, anti coagulation, beta-ilya, statin, and O2 as needed 5. IV morphine for pain 6. Nitro p.r.n. 7. Strict blood sugar and blood pressure control 8. Treatment for diabetic neuropathy-Lyrica Discharge Plan: Home Plan to discharge in: Greater than 2 days - Advance Directives Does patient have a Living Will: No Does patient have a Durable POA for Healthcare: No - Code Status/Comfort Care Code Status Assessed: Yes Code Status: Full Code Critical Care: No Time Spent Managing PTS Care (In Minutes): 45
[2019-09-11] MEDS: PREGABALIN 75 MG CAP PO SCH ×2 (07:54→20:00)
[2019-09-11] MEDS ORDERED: ACETYLCYST 20% 800 MG/4 ML VIAL PO ONE (08:04)
[2019-09-11] MEDS ORDERED: predniSONE 20 MG TAB PO ONE (08:05)
--- NOTE | 2019-09-11 08:26 | RAD REPORT ---
EXAM DESCRIPTION: RAD - Chest Single View - 09/10/2019 9:43 pm CLINICAL HISTORY: CHEST PAIN Chest pain. COMPARISON: Chest Pa And Lat (2 Views) dated 07/29/2019; Chest Pa And Lat (2 Views) dated 05/21/2019; Chest Single View dated 03/07/2017; Chest Single View dated 03/01/2017 FINDINGS: Portable technique limits examination quality. Mild interstitial prominence is present bilaterally which may represent interstitial pneumonia or mil d interstitial pulmonary edema. The heart is mildly enlarged in size. No displaced fractures.
[2019-09-11] MEDS ORDERED: ENOXAPARIN 30 MG/0.3 ML SQ SCH (09:00)
[2019-09-11] MEDS ORDERED: ENOXAPARIN 40 MG/0.4 ML SQ SCH (09:00)
[2019-09-11] MEDS ORDERED: ASPIRIN EC 81 MG TAB PO SCH (09:00)
[2019-09-11 09:18] LABS: Absolute Lymphocytes (CBC) 1.7 K/uL (0.7-4.9); Basophils % 1.4 % (0-1.3); Hematocrit 32.6 % (36.0-45.0); Lymphocytes % 27.2 % (15.3-44.8); MPV 8.5 fL (7.6-11.3)
[2019-09-11 09:25] LABS: Magnesium 2.3 mg/dL (1.8-2.4); Potassium 4.9 mmol/L (3.5-5.1)
--- NOTE | 2019-09-11 11:52 | EKG ---
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
[2019-09-11] MEDS ORDERED: NA CHLORIDE 0.9% 1,000 ML ONE (12:30)
[2019-09-11] MEDS ORDERED: NA CHLORIDE 0.9% 0 ML ONE (12:55)
[2019-09-11] MEDS ORDERED: ATROPINE SULF 1 MG/10 ML SYR IV ONE (12:55)
[2019-09-11] MEDS ORDERED: NITROGLYCERIN 100 MCG/ML SYR (for cath lab use only) IV ONE (12:55)
[2019-09-11] MEDS ORDERED: MIDAZOLAM HCL 2 MG/2 ML INJ ONE ×2 (12:55→13:37)
[2019-09-11] MEDS ORDERED: NITROGLYCERIN/D5W 25 MG/250 ML BTL IV ONE (12:55)
[2019-09-11] MEDS ORDERED: FENTANYL CITR 100 MCG/2 ML ONE (12:55)
[2019-09-11] MEDS ORDERED: HEPA 1000U/500MLS 1,000 UNIT/500 ML BAG IV ONE (13:02)
[2019-09-11] MEDS ORDERED: LIDOCAINE 1% MPF 30 ML VIAL ONE (13:02)
[2019-09-11] MEDS ORDERED: METHYLPREDNISOLONE 125 MG INJ ONE (13:36)
[2019-09-11] MEDS ORDERED: METOPROLOL TAR 25 MG TAB PO SCH (18:00)
[2019-09-11] MEDS ORDERED: ATORVASTATIN 20 MG TAB PO SCH (21:00)
--- NOTE | 2019-09-11 22:57 | CON ---
Date of Consultation: 09/11/[address] Soares's service on 09/11/2019. I saw the patient on 09/11/2019. Reason For Consultation: Non-ST elevation myocardial infarction. History Of Present Illness: Ms. Ellis is a 78-year-old woman known to us from previous office visits and admissions. She has a history of hypertension, rheumatoid arthritis, coronary artery disease st atus post multiple stents. She has a history of peripheral arterial disease. Angiography recently r evealed normal abdominal aorta, iliac, SFAs. She has some diffuse disease distally with an occluded posterior tibial on the left side. Came in with chest pain, substernal, radiating to the back with s hortness of breath and diaphoresis and she had a troponin of 6.39. Her EKG showed no acute changes. Denied PND, orthopnea, pedal edema, palpitations, or syncope. Past Medical History: Include hypertension, rheumatoid arthritis, coronary artery disease, PCI, PAD. Allergies: INCLUDE EGG, IODINE, STATIN, AND NAPROSYN. Review of Systems: Negative. Social History: Positive for remote tobacco use. Family History: Positive for heart disease. Medications: At home include aspirin, Plavix, metoprolol, Zantac, and Altace. Physical Examination: Vital Signs: Stable. She was afebrile. HEENT: Negative. Neck: Supple with no bruit. Chest: Clear. Cardiac: Revealed a regular rhythm and rate without any murmurs, gallops, or rubs. Abdomen: Benign. Extremities: Revealed no clubbing, cyanosis, or edema. Dorsalis pedis and posterior tibial pulses w ere diminished bilaterally. Skin: Dry and intact. Neurological: She was nonfocal. Physical Examination: Vital Signs: Stable, she was afebrile, she was in no acute distress. HEENT: Negative. Neck: Supple with no bruit. Chest: Clear. Cardiac: Reveals regular rhythm and rate. No murmurs, gallops, or rubs. Abdomen: Benign. Extremities: Revealed no clubbing, cyanosis, or edema. Diagnostic Data: Her creatinine is 1.52. Her D-dimer was 1252. Troponin is 6.39. BNP is 1429. Impression And Plan: 1.Non-ST elevation myocardial infarction. 2.Coronary artery disease, status post multiple stents in the past. 3.Hypertension. 4.Rheumatoid arthritis. 5.Peripheral arterial disease. 6.Chronic renal insufficiency. 7.Allergy to Iodine. I will plan to do a heart catheterization on Ms. Ellis today to define her coronary anatomy. We will give her Mucomyst before and after the angiography. We will give her prednisone now and we will giv e her IV Solu-Medrol during the procedure because of her dye allergies. We will see what her cathete rization shows prior to making final decisions. Her blood pressure is well controlled otherwise. The case was discussed with Dr. Crespo. PASHA/AUDRA Voice ID: [id number] Report ID: [id number]
--- NOTE | 2019-09-11 23:06 | OP ---
Date of Procedure: 09/11/2019 Surgeon: Rg Frey MD Crew Boss: Marko Wheeler. The patient will remain at bedrest for 2 hours. We will transfer her to [facility] for further cardiac intervention and bypass surgery. The case was discussed with Dr. Crespo. Procedure: Left heart catheterization with selective coronary arteriogram. Indication: Non-ST elevation myocardial infarction with history of CAD and stent. History Of Present Illness: Ms. Ellis is 78, history of coronary artery disease, status post multipl e stents, came in with non-ST elevation myocardial infarction, [facility] an inpatien t today on 09/11/2019. 6 -L[place] sheath introduced in the right common femoral artery successfully. Angiography there using the Yin catheter left and right revealed a nondominant RCA with about a 70% proximal stenosis. She has an 80% to 90% ostial circumflex stenosis. She has a dual left main s ystem. Her LAD showed diffuse disease with about a 50% to 70% proximal to LAD before and old stent, she also had a 70% mid LAD after an old stent. Her stents themselves were opened. The circumflex sy stem also had about a 70% to 80% ostial OM2 lesions. The patient tolerated the procedure well. Ther e were no complications. Blood Loss: 5 mL. Anesthesia: Total conscious sedation was 30 minutes. Final Diagnosis: Severe 3-vessel coronary artery disease. Plan: To recommend bypass surgery. PASHA/AUDRA Voice ID: [id number] Report ID: [id number]
[2019-09-11 23:13] VITALS: O2SAT 97
--- NOTE | 2019-09-14 08:00 | ECHO ---
HEIGHT: 5 ft 2 in WEIGHT: 160 lb 3.2 oz DATE OF STUDY: 09/11/[address]: Osman Soares MD 2-DIMENSIONAL: YES M.MODE: YES DOPPLER: YES COLOR FLOW: YES TDS: PORTABLE: DEFINITY: BUBBLE STUDY: DIAGNOSIS: ACUTE MYOCARDIAL INFARCTION CARDIAC HISTORY: CATHERIZATION: YES SURGERY: YES PROSTHETIC VALVE: NO PACEMAKER: NO MEASUREMENTS (cm) DIASTOLIC (NORMALS) SYSTOLIC (NORMALS) IVSd 1.1 (0.6-1.2) LA Diam 3.5 (1.9-4.0) LVEF 83% LVIDd 3.5 (3.5-5.7) LVIDs 1.7 (2.0-3.5) %FS 51% LVPWd 1.2 (0.6-1.2) Ao Diam 3.0 (2.0-3.7) 2 DIMENSIONAL ASSESSMENT: RIGHT ATRIUM: NORMAL LEFT ATRIUM: NORMAL RIGHT VENTRICLE: NORMAL LEFT VENTRICLE: NORMAL TRICUSPID VALVE: NORMAL MITRAL VALVE: NORMAL PULMONIC VALVE: NORMAL AORTIC VALVE: NORMAL PERICARDIAL EFFUSION: NONE AORTIC ROOT: NORMAL LEFT VENTRICULAR WALL MOTION: NORMAL DOPPLER/COLOR FLOW: NORMAL COMMENTS: NORMAL 2-DIMENSIONAL ECHOCARDIOGRAM WITH DOPPLER. NO WALL MOTION ABNORMALITY. NO EFFUSION. TECHNOLOGIST: YESI OLSEN
[2019-09-15 12:07] VITALS: BP 137/63; TEMP 97.6
--- NOTE | 2019-09-15 12:10 | P.DS ---
Discharge Date: 09/11/19 Disposition: TRANSFER TO [facility] Discharge Condition: GOOD Reason for Admission: NSTEMI; ACUTE MYOCARDIAL INFARCTION - Problems (1) Acute myocardial infarction Status: Acute (2) Neuropathy Status: Acute (3) Chest pain Onset Date: 03/08/17 Status: Acute Qualifiers: (4) Congestive heart failure (CHF) Onset Date: 03/08/17 Status: Acute Qualifiers: (5) Diabetes Status: Acute (6) PAD (peripheral artery disease) Status: Acute (7) Coronary artery disease Onset Date: 03/08/17 Status: Chronic Qualifiers: Brief History of Present Illness: Patient is a 78-year-old female who came into the hospital with chest discom fort. Patient has been having some chest discomfort and was short of breath. She came into the Emergency room for further evaluation. In the emergency room her initial troponin was slightly elevated. Her repeat was substantially elevated. Patient was scheduled for a heart catheterization this morning. Patient is currently also getting morphine. Patient is schedule for heart catheterization this morning. Hospital Course: Cardiac catheterization revealed Multivessel coronary artery disease. The patient will need bypass surgery will be transferred to tertiary care facility. Vital Signs/Physical Exam: Temp Pulse Resp BP Pulse Ox 97.6 F 58 16 137/63 100 09/15/19 12:07 09/15/19 12:07 09/15/19 12:07 09/15/19 12:07 09/15/19 12:07 General: Alert, In no apparent distress, Oriented x3 Laboratory Data at Discharge: WBC 6.2 K/uL (4.3-10.9) 09/11/19 08:59 Hgb 11.0 g/dL (12.0-15.0) L 09/11/19 08:59 Hct 32.6 % (36.0-45.0) L 09/11/19 08:59 Plt Count 173 K/uL (152-406) 09/11/19 08:59 PT 11.7 SECONDS (9.5-12.5) 09/10/19 20:50 INR 0.99 09/10/19 20:50 Sodium 138 mmol/L (136-145) 09/11/19 08:59 Potassium 4.9 mmol/L (3.5-5.1) 09/11/19 08:59 BUN 31 mg/dL (7-18) H 09/11/19 08:59 Creatinine 1.27 mg/dL (0.55-1.3) 09/11/19 08:59 Glucose 110 mg/dL (74-106) H 09/11/19 08:59 Phosphorus 4.1 mg/dL (2.5-4.9) 09/11/19 06:16 Magnesium 2.3 mg/dL (1.8-2.4) 09/11/19 08:59 Total Bilirubin 0.6 mg/dL (0.2-1.0) 09/10/19 20:50 AST 15 U/L (15-37) 09/10/19 20:50 ALT 15 U/L (12-78) 09/10/19 20:50 Alkaline Phosphatase < 10 U/L (45-117) L 09/10/19 20:50 Troponin I 7.03 ng/mL (0.0-0.045) H* 09/11/19 06:16 Home Medications: Aspirin [Pura Chewable Aspirin] 81 mg PO DAILY 09/16/13 Clopidogrel Bisulfate [Plavix*] 75 mg PO DAILY #0 tablet 09/19/13 Hydrocodone Bit/Acetaminophen [Hydrocodon-Acetaminophn 10-500] 1 tab PO Q4H PRN #0 tablet 09/19/13 ramipriL [Altace*] 10 mg PO DAILY #0 cap 09/19/13 Metoprolol Tartrate [Lopressor*] 75 mg PO BID 01/01/19 Ranitidine [Zantac*] 150 mg PO DAILY PRN 01/01/19 Patient Discharge Instructions: Patient will transfer to [facility] Diet: AHA Activity: Fall precautions Time spent managing pt's care (in minutes): 20
== END 2019-09-11 22:50 | disposition short-term general hospital (02) | DRG 281 ==
LOC: ER 20:45 → ERHOLD 09-11 01:16 → 2ND 09-11 01:51
PROVIDERS: ADMIT Hospitalist; ATTEND Hospitalist
PROC: 4A023N7 Measurement of Cardiac Sampling and Pressure, Left Heart, Percutaneous Approach (ICD-10-PCS; principal; 2019-09-11)
PROC: B2111ZZ Fluoroscopy of Multiple Coronary Arteries using Low Osmolar Contrast (ICD-10-PCS; 2019-09-11)
DX: I21.9 Acute myocardial infarction, unspecified (principal); I13.0 Hypertensive heart and chronic kidney disease with heart failure and stage 1 through stage 4 chronic kidney disease, or unspecified chronic kidney disease; I50.9 Heart failure, unspecified; E11.51 Type 2 diabetes mellitus with diabetic peripheral angiopathy without gangrene; N18.9 Chronic kidney disease, unspecified; E11.22 Type 2 diabetes mellitus with diabetic chronic kidney disease; M06.9 Rheumatoid arthritis, unspecified; E11.40 Type 2 diabetes mellitus with diabetic neuropathy, unspecified; I25.2 Old myocardial infarction; I25.10 Atherosclerotic heart disease of native coronary artery without angina pectoris; T49.0X5A Adverse effect of local antifungal, anti-infective and anti-inflammatory drugs, initial encounter; Z88.5 Allergy status to narcotic agent; Z88.8 Allergy status to other drugs, medicaments and biological substances; Z91.018 Allergy to other foods; Z79.82 Long term (current) use of aspirin; Z79.02 Long term (current) use of antithrombotics/antiplatelets; Z79.891 Long term (current) use of opiate analgesic; Z79.899 Other long term (current) drug therapy; Z95.5 Presence of coronary angioplasty implant and graft; Z98.51 Tubal ligation status; Z90.710 Acquired absence of both cervix and uterus; Z20.828 Contact with and (suspected) exposure to other viral communicable diseases; Z90.49 Acquired absence of other specified parts of digestive tract
CPT/HCPCS: 36415; 71045; 80048; 80076; 82805; 83735; 83880; 84100; 84484; 85025; 85379; 85610; 93005; 93306; 93454; 99285; C1893; J0583; J2250; J2930; J3010; J7030; J7512; U0002

== ENCOUNTER 2019-10-12 17:43 | Inpatient (IN) | payer OTHER ==
--- OUTSIDE RECORDS SUMMARY | 2019-10-12 18:28 | XMS REPORT | Clinical Summary ---
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 results section. BASIC METABOLIC BRIGHT 09/14/2019 9:02 Results for this PANEL (7) PM CDT procedure are i n the results section. PT/APTT BRIGHT 09/14/2019 9:02 Results for this PM CDT procedure are i n the results section. CBC (HEMOGRAM ONLY) BRIGHT 09/14/2019 9:02 Resu lts for this PM CDT procedure are i n the results section. BLOOD GAS, ARTERIAL STAT 09/14/2019 9:02 Resu lts for this PM CDT procedure are i n the results section. LACTIC ACID, STAT 09/14/2019 6:51 Results for this ARTERIAL PM CDT procedure are i n the results section. HGB/HCT (H&H) - STAT STAT 09/14/2019 6:51 Res ults for this LAB PM CDT procedure are i n the results section. BLOOD GAS, ARTERIAL STAT 09/14/2019 6:51 Resu lts for this PM CDT procedure are i n the results section. POCT-GLUCOSE METER Routine 09/14/2019 6:50 Resul ts for this PM CDT procedure are i n the results section. POCT-GLUCOSE METER Routine 09/14/2019 6:11 Resul ts for this PM CDT procedure are i n the results section. TRANSFUSION SERVICE 09/14/2019 5:50 REPORT - SCAN PM CDT XR CHEST 1 VIEW Routine 09/14/2019 5:42 Results for this PORTABLE/BEDSIDE PM CDT procedure a re in the results section. BRONCHIAL CULTURE + Routine 09/14/2019 5:37 Resu lts for this GRAM STAIN PM CDT procedure are i n the results section. CBC W/PLT COUNT & STAT 09/14/2019 3:31 Result s for this AUTO DIFFERENTIAL PM CDT procedure are in the results section. BASIC METABOLIC Routine 09/14/2019 3:31 Results for this PANEL (7) PM CDT procedure are i n the results section. POTASSIUM STAT Add-on 09/14/2019 3:31 Results for this PM CDT procedure are i n the results section. GLUCOSE STAT Add-on 09/14/2019 3:31 Results for this PM CDT procedure are i n the results section. PT/APTT STAT 09/14/2019 3:31 Results for this PM CDT procedure are i n the results section. OXYGEN SATURATION, STAT 09/14/2019 3:31 Resul ts for this MEASURED PM CDT procedure are i n the results section. PLATELET COUNT STAT 09/14/2019 3:31 Results f or this PM CDT procedure are i n the results section. FIBRINOGEN STAT 09/14/2019 3:31 Results for this PM CDT procedure are i n the results section. APTT STAT 09/14/2019 3:31 Results for this PM CDT procedure are i n the results section. PROTHROMBIN TIME/INR STAT 09/14/2019 3:31 Res ults for this PM CDT procedure are i n the results section. LACTIC ACID, STAT 09/14/2019 3:31 Results for this ARTERIAL PM CDT procedure are i n the results section. CALCIUM, IONIZED STAT 09/14/2019 3:31 Results for this PM CDT procedure are i n the results section. PHOSPHORUS STAT 09/14/2019 3:31 Results for this PM CDT procedure are i n the results section. MAGNESIUM STAT 09/14/2019 3:31 Results for this PM CDT procedure are i n the results section. CBC W/PLT COUNT & STAT 09/14/2019 3:31 Result s for this AUTO DIFFERENTIAL PM CDT procedure are in the results section. XR CHEST 1 VIEW Routine 09/14/2019 3:31 Results for this PORTABLE/BEDSIDE PM CDT procedure a re in the results section. HGB/HCT (H&H) - STAT STAT 09/14/2019 3:30 Res ults for this LAB PM CDT procedure are i n the results section. GLUCOSE-STAT LAB STAT 09/14/2019 3:30 Results for this PM CDT procedure are i n the results section. POTASSIUM-STAT LAB STAT 09/14/2019 3:30 Resul ts for this PM CDT procedure are i n the results section. SODIUM NA-STAT LAB STAT 09/14/2019 3:30 Resul ts for this PM CDT procedure are i n the results section. BLOOD GAS, ARTERIAL STAT 09/14/2019 3:30 Resu lts for this PM CDT procedure are i n the results section. ECG 12-LEAD Routine 09/14/2019 3:22 Results for this PM CDT procedure are i n the results section. HGB/HCT (H&H) - STAT STAT 09/14/2019 1:57 Res ults for this LAB PM CDT procedure are i n the results section. GLUCOSE-STAT LAB STAT 09/14/2019 1:57 Results for this PM CDT procedure are i n the results section. POTASSIUM-STAT LAB STAT 09/14/2019 1:57 Resul ts for this PM CDT procedure are i n the results section. SODIUM NA-STAT LAB STAT 09/14/2019 1:57 Resul ts for this PM CDT procedure are i n the results section. BLOOD GAS, ARTERIAL STAT 09/14/2019 1:57 Resu lts for this PM CDT procedure are i n the results section. RRL CRITICAL LABS STAT 09/14/2019 1:57 Result s for this (ABG,NA,K,H&H,GLUCOS PM CDT procedu re are in E) the results section. POCT-ACT Routine 09/14/2019 1:41 Results for this PM CDT procedure are i n the results section. HGB/HCT (H&H) - STAT STAT 09/14/2019 1:36 Res ults for this LAB PM CDT procedure are i n the results section. GLUCOSE-STAT LAB STAT 09/14/2019 1:36 Results for this PM CDT procedure are i n the results section. POTASSIUM-STAT LAB STAT 09/14/2019 1:36 Resul ts for this PM CDT procedure are i n the results section. SODIUM NA-STAT LAB STAT 09/14/2019 1:36 Resul ts for this PM CDT procedure are i n the results section. BLOOD GAS, ARTERIAL STAT 09/14/2019 1:36 Resu lts for this PM CDT procedure are i n the results section. RRL CRITICAL LABS STAT 09/14/2019 1:36 Result s for this (ABG,NA,K,H&H,GLUCOS PM CDT procedu re are in E) the results section. TRANSFUSE Routine 09/14/2019 1:27 LEUKO-REDUCED RED PM CDT BLOOD CELLS HGB/HCT (H&H) - STAT STAT 09/14/2019 1:00 Res ults for this LAB PM CDT procedure are i n the results section. GLUCOSE-STAT LAB STAT 09/14/2019 1:00 Results for this PM CDT procedure are i n the results section. POTASSIUM-STAT LAB STAT 09/14/2019 1:00 Resul ts for this PM CDT procedure are i n the results section. SODIUM NA-STAT LAB STAT 09/14/2019 1:00 Resul ts for this PM CDT procedure are i n the results section. BLOOD GAS, ARTERIAL STAT 09/14/2019 1:00 Resu lts for this PM CDT procedure are i n the results section. RRL CRITICAL LABS STAT 09/14/2019 1:00 Result s for this (ABG,NA,K,H&H,GLUCOS PM CDT procedu re are in E) the results section. POCT-ACT Routine 09/14/2019 12:48 Results for this PM CDT procedure are i n the results section. HGB/HCT (H&H) - STAT STAT 09/14/2019 12:45 Res ults for this LAB PM CDT procedure are i n the results section. GLUCOSE-STAT LAB STAT 09/14/2019 12:45 Results for this PM CDT procedure are i n the results section. POTASSIUM-STAT LAB STAT 09/14/2019 12:45 Resul ts for this PM CDT procedure are i n the results section. SODIUM NA-STAT LAB STAT 09/14/2019 12:45 Resul ts for this PM CDT procedure are i n the results section. BLOOD GAS, ARTERIAL STAT 09/14/2019 12:45 Resu lts for this PM CDT procedure are i n the results section. RRL CRITICAL LABS STAT 09/14/2019 12:45 Result s for this (ABG,NA,K,H&H,GLUCOS PM CDT procedu re are in E) the results section. POCT-ACT Routine 09/14/2019 12:25 Results for this PM CDT procedure are i n the results section. POCT-ACT Routine 09/14/2019 12:13 Results for this PM CDT procedure are i n the results section. HGB/HCT (H&H) - STAT STAT 09/14/2019 11:06 Res ults for this LAB AM CDT procedure are i n the results section. GLUCOSE-STAT LAB STAT 09/14/2019 11:06 Results for this AM CDT procedure are i n the results section. POTASSIUM-STAT LAB STAT 09/14/2019 11:06 Resul ts for this AM CDT procedure are i n the results section. SODIUM NA-STAT LAB STAT 09/14/2019 11:06 Resul ts for this AM CDT procedure are i n the results section. BLOOD GAS, ARTERIAL STAT 09/14/2019 11:06 Resu lts for this AM CDT procedure are i n the results section. RRL CRITICAL LABS STAT 09/14/2019 11:06 Result s for this (ABG,NA,K,H&H,GLUCOS AM CDT procedu re are in E) the results section. ENDOSCOPIC 09/14/2019 10:00 Coronary artery HARVEST,VEIN AM CDT disease with angina pectoris, unspecified vessel or lesion type, unspecified whether lime or transplanted heart (HCC) Special Needs (ICU BED NEEDED) BYPASS,AORTO CORONARY ILYA/SVG 09/14/2019 10:00 A M CDT Coronary artery disease with angina pectoris, unspecified vessel or lesion type, unspecified whether lime or transplanted heart (HCC) Special Needs (ICU BED NEEDED) CBC W/PLT COUNT & AUTO Routine 09/14/2019 4:31 AM CDT Results for this DIFFERENTIAL procedure are i n the results section . CBC W/PLT COUNT & AUTO Routine 09/14/2019 4:31 AM CDT Results for this DIFFERENTIAL procedure are i n the results section . BASIC METABOLIC PANEL (7) STAT Add-on 09/14/2019 4:31 AM CDT Results for this procedure are i n the results section . PHOSPHORUS STAT Add-on 09/14/2019 4:31 AM CDT Resu lts for this procedure are i n the results section . APTT Routine 09/14/2019 4:31 AM CDT Resu lts for this procedure are i n the results section . MAGNESIUM Routine 09/14/2019 4:31 AM CDT Resu lts for this procedure are i n the results section . BASIC METABOLIC PANEL (7) Routine 09/14/2019 4:31 AM CDT Results for this procedure are i n the results section . CBC W/PLT COUNT & AUTO Routine 09/14/2019 4:31 AM CDT Results for this DIFFERENTIAL procedure are i n the results section . MAGNESIUM Routine 09/14/2019 4:31 AM CDT Resu lts for this procedure are i n the results section . COMPREHENSIVE METABOLIC Routine 09/14/2019 4:31 AM CDT Results for this PANEL procedure are i n the results section . CBC W/PLT COUNT & AUTO Routine 09/14/2019 4:31 AM CDT Results for this DIFFERENTIAL procedure are i n the results section . SARS-COV2/RT-PCR ([facility] & STAT 09/13/2019 4:18 PM CDT Results for this REF LABS) procedure are i n the results section . 2D ECHO W/ DOPPLER BRIGHT 09/13/2019 1:55 PM CDT Results for this (CW/PW/COLOR) procedure are in the results section . ABORH, MANUAL STAT 09/13/2019 5:43 AM CDT Res ults for this procedure are i n the results section . CBC W/PLT COUNT & AUTO Routine 09/13/2019 4:38 AM CDT Results for this DIFFERENTIAL procedure are i n the results section . CBC W/PLT COUNT & AUTO Routine 09/13/2019 4:38 AM CDT Results for this DIFFERENTIAL procedure are i n the results section . PLATELET AGGREGATION: Routine 09/13/2019 4:38 AM CDT Results for this FUNCTION SCREEN procedure ar e in the results section . TYPE AND SCREEN, AUTOMATED Routine 09/13/2019 4:37 AM CDT Results for this procedure are i n the results section . LIPID PANEL Routine 09/13/2019 4:37 AM CDT Resu lts for this procedure are i n the results section . HEMOGLOBIN A1C Routine 09/13/2019 4:37 AM CDT Re sults for this procedure are i n the results section . MAGNESIUM Routine 09/13/2019 4:37 AM CDT Resu lts for this procedure are i n the results section . BASIC METABOLIC PANEL (7) Routine 09/13/2019 4:37 AM CDT Results for this procedure are i n the results section . APTT Add-On 09/13/2019 4:36 AM CDT Resu lts for this procedure are i n the results section . PROTHROMBIN TIME/INR Routine 09/13/2019 4:36 AM CDT Results for this procedure are i n the results section . ECG 12-LEAD Routine 09/12/2019 9:56 PM CDT Procedure Note - Interface, External Ris In - 09/12/2019 10:04 PM CDT Ventricular Rate 52 BPM Atrial Rate 52 BPM P-R Interval 246 ms QRS Duration 108 ms Q-T Interval 460 ms QTC Calculation(Bazett) 427 ms P [place] 29 degrees R [place] 43 degrees T [place] 24 degrees Sinus bradycardia with 1st d egree A-V block Incomplete right bundle bran ch block Borderline ECG No previous ECGs available ECG 12-LEAD Routine 09/12/2019 9:56 PM CDT Resu lts for this procedure are i n the results section . XR CHEST 1 VIEW Routine 09/12/2019 9:06 PM CDT R esults for this PORTABLE/BEDSIDE procedure a re in the results section . CAROTID DOPPLER Routine 09/12/2019 7:30 PM CDT R esults for this BILATERAL procedure are i n the results section . APTT Routine 09/12/2019 6:11 PM CDT Resu lts for this procedure are i n the results section . PLATELET AGGREGATION: AP Routine 09/12/2019 12:28 PM CDT Results for this FUNCTION SCREEN procedure ar e in the results section . TROPONIN I Routine 09/12/2019 10:53 AM CDT Resu lts for this procedure are i n the results section . APTT Routine 09/12/2019 10:53 AM CDT Resu lts for this procedure are i n the results section . TROPONIN I Routine 09/12/2019 3:19 AM CDT Resu lts for this procedure are i n the results section . CBC (HEMOGRAM ONLY) Routine 09/12/2019 3:19 AM CDT Results for this procedure are i n the results section . APTT Routine 09/12/2019 3:19 AM CDT Resu lts for this procedure are i n the results section . after 10/11/2018 Results POC-Glucose meter (09/30/2019 6:05 AM CDT)Only the most recent of61 results within the time period is included. POC-Glucose Meter 119 (H)Comment: : TESTED 70 - 110 mg/dL [facility] [address] [facility] [id number]: Cancer Program Consultant/Panel Fitter ID = [id number] for ABI RAMOS Specimen Blood Performing Organization Address City/[facility] Phone Number [facility] [address] [place] [address] [phone] CENTER Basic Metabolic Panel (09/30/2019 2:00 AM CDT)Only the most recent of11 results within the time period is included. Sodium 136 136 - 145 meq/L [facility] Potassium 4.3Comment: Specimen slightly 3.5 - 5.1 meq/L [facility] - hemolyzed [facility] Chloride 101 98 - 107 meq/L [facility] CO2 28 22 - 29 meq/L [facility] BUN 20 7 - 21 mg/dL [facility] Creatinine 1.68 (H)Comment: Specimen 0.57 - 1.25 mg/dL [facility] - slightly hemolyzed [facility] Glucose 138 (H) 70 - 105 mg/dL [facility] Calcium 8.8 8.4 - 10.2 mg/dL [facility] EGFR 29Comment: ESTIMATED GFR IS mL/min/1.73 sq m [facility] - NOT ACCURATE CREATININE MC DICKENS CLEARANCE IN PREDICTING GLOMERULAR FILTRATION RATE. ESTIMATED GFR IS NOT APPLICABLE FOR DIALYSIS PATIENTS. Specimen Blood Performing Organization Address City/[facility] Center[facility] Phone Number [facility] [address] [place] [address] CBC with platelet count + automated diff (09/28/2019 11:43 AM CDT)Only the most recent of9 resultswithin the time period is included. WBC 5.7 3.5 - 10.5 K/L [facility] RBC 2.84 (L) 3.93 - 5.22 M/L [facility] Hemoglobin 8.7 (L) 11.2 - 15.7 GM/DL [facility] Hematocrit 27.3 (L) 34.1 - 44.9 % [facility] MCV 96.1 (H) 79.4 - 94.8 fL [facility] MCH 30.6 25.6 - 32.2 pg [facility] MCHC 31.9 (L) 32.2 - 35.5 GM/DL [facility] RDW 15.1 (H) 11.7 - 14.4 % [facility] Platelets 344 150 - 450 K/CU MM [facility] MPV 9.8 9.0 - 12.3 fL [facility] nRBC 0 0 - 0 /100 WBC [facility] % Neutros 63 % [facility] % Lymphs 19 % [facility] % Monos 9 % [facility] % Eos 8 % [facility] % Baso 1 % [facility] # Neutros [facility] # Lymphs [facility] # Monos [facility] # Eos [facility] # Baso [facility] Immature Granulocytes-Relative 0 0 - 1 % C [facility] Specimen Blood Performing Organization Address City/[facility]/Zipcode Phone Number [facility] [address] [place] [address] Magnesium (09/28/2019 11:43 AM CDT)Only the most recent of11 resultswithin the time period is included. Magnesium 2.1 1.6 - 2.6 mg/dL [facility] Specimen Blood Performing Organization Address City/[facility] Phone Number [facility] [address] [place] [address] Comprehensive metabolic panel (09/28/2019 11:43 AM CDT)Only the most recent of4 resultswithin the time period is included. Protein, Total 5.8 (L) 6.0 - 8.3 gm/dL [facility] Albumin 3.6 3.5 - 5.0 g/dL [facility] Alkaline Phosphatase 11 (L) 40 - 150 U/L [facility] Total Bilirubin 0.3 0.2 - 1.2 mg/dL [facility] Sodium 135 (L) 136 - 145 meq/L [facility] Potassium 4.8 3.5 - 5.1 meq/L [facility] Chloride 101 98 - 107 meq/L [facility] CO2 30 (H) 22 - 29 meq/L [facility] BUN 25 (H) 7 - 21 mg/dL [facility] Creatinine 1.40 (H) 0.57 - 1.25 mg/dL [facility] Glucose 152 (H) 70 - 105 mg/dL [facility] Calcium 9.4 8.4 - 10.2 mg/dL [facility] AST 18 5 - 34 U/L [facility] ALT 17 6 - 55 U/L [facility] EGFR 36Comment: ESTIMATED GFR mL/min/1.73 sq m [facility] - IS NOT ACCURATE [facility] CREATININE CLEARANCE IN PREDICTING GLOMERULAR FILTRATION RATE. ESTIMATED GFR IS NOT APPLICABLE FOR DIALYSIS PATIENTS. Specimen Blood Performing Organization Address City/State/Zipcode Phone Number [facility] [address] [place] [address] XR chest 1 view portable / bedside (09/24/2019 9:11 AM CDT)Only the most recent of8 resultswithin the time period is included. Specimen Narrative Performed At FINAL REPORT [facility] EXAM: PA view of the chest. COMPARISON: 09/18/2019 CLINICAL HISTORY: h/o CABG, f/u venous con gestion and pleural effusion FINDINGS: Lines/tubes:Right and left IJ hemodi alysis catheters have been removed. Lungs:Mild worsening bilateral inter stitial edema. Subsegmental atelectasis in both lung bases, increase d. Pleura:Small bilateral pleural effus ions, left greater than right. No pneumothorax. Heart and mediastinum:Moderate enlar gement of the cardiac silhouette, increased since preoperative exam. Atherosclerotic calcifications of the aortic arch. Bones and soft tissues:Interval CABG with intact median sternotomy wires. IMPRESSION: Status post CABG with mild increase in s ize of the cardiac silhouette which may relate to worsening heart fail ure or superimposed pericardial effusion. Correlate with ech ocardiogram. Mild bilateral interstitial edema and sm all bilateral pleural effusions. Signed: Leigh Almodovar MD Report Verified Date/Time:09/24/2019 13:22:42 Reading Location: [place] [address] Procedure Note Interface, External Ris In - 09/24/2019 1:24 PM CDT FINAL REPORT EXAM: PA view of the chest. COMPARISON: 09/18/2019 CLINICAL HISTORY: h/o CABG, f/u ve nous congestion and pleural effusion FINDINGS: Lines/tubes: Right and left IJ hemodial ysis catheters have been removed. Lungs: Mild worsening bilateral interst itial edema. Subsegmental atelectasis in both lung bases, increase d. Pleura: Small bilateral pleural effusio ns, left greater than right. No pneumothorax. Heart and mediastinum: Moderate enlarge ment of the cardiac silhouette, increased since preoperative exam. Atherosclerotic calcifications of the aortic arch. Bones and soft tissues: Interval CABG w ith intact median sternotomy wires. IMPRESSION: Status post CABG with mild increase in s ize of the cardiac silhouette which may relate to worsening heart fail ure or superimposed pericardial effusion. Correlate with ech ocardiogram. Mild bilateral interstitial edema and sm all bilateral pleural effusions. Signed: Leigh Almodovar MD Report Verified Date/Time: 09/24/2019 1 3:22:42 Reading Location: [facility] [facility] [place] [facility] 3 - A31.625 Performing Organization Address City/State/Zipcode Phone Number [facility] XR abdomen / KUB 1 view (09/24/2019 9:11 AM CDT) Specimen Narrative Performed At FINAL REPORT [facility] EXAM: Abdomen oneViews INDICATION: constipation, abdomi nal pain COMPARISON: None FINDINGS: Mild amount of stool in the colon. No dilated loops of small bowel. Retaine d oral contrast in multiple diverticula throughout the left colon. Right upper quadrant 7 mm calcification may reflect additional calcified diverticula. No renal calculi. No abnormal soft tissue masses. Advanced degenerative changes in the lum bar spine and pelvis. Right upper quadrant cholecystectomy luisa gical clips. IMPRESSION: 1.Diffuse diverticulosis throughout the left colon and possible right upper quadrant. 2.Mild amount of retained stool througho ut the colon without bowel dilatation. Signed: Leigh Almodovar MD Report Verified Date/Time:09/24/2019 14:15:34 Reading Location: [facility] [place] [facility] 3 - B01.625 Procedure Note Interface, External Ris In - 09/24/2019 2:17 PM CDT FINAL REPORT EXAM: Abdomen one Views INDICATION: constipation, abdominal pain COMPARISON: None FINDINGS: Mild amount of stool in the colon. No dilated loops of small bowel. Retaine d oral contrast in multiple diverticula throughout the left colon. Right upper quadrant 7 mm calcification may reflect additional calcified diverticula. No renal calculi. No abnormal soft tissue masses. Advanced degenerative changes in the lum bar spine and pelvis. Right upper quadrant cholecystectomy luisa gical clips. IMPRESSION: 1.Diffuse diverticulosis throughout the left colon and possible right upper quadrant. 2.Mild amount of retained stool througho ut the colon without bowel dilatation. Signed: Leigh Almodovar MD Report Verified Date/Time: 09/24/2019 1 4:15:34 Reading Location: [facility] [place] [address] Performing Organization Address [facility] Phone Number [facility] Vitamin B12 and Folate (09/22/2019 4:39 AM CDT) Vitamin B12 856 211 - 911 pg/mL [facility] Folate 12.43 >=5.40 ng/mL [facility] Specimen Blood Performing Organization Address [facility] Phone Number [facility] [address] [place] [address] TSH/Free T4 If Indicated (09/22/2019 4:39 AM CDT) TSH 1.234 0.350 - 5.500 uIU/mL [facility] Specimen Blood Performing Organization Address [facility] Phone Number [facility] [address] [place] [address] RHYTHM STRIP - SCAN (09/21/2019 2:20 PM CDT) Narrative Performed At This result has an attachment that is no t available. Phosphorus (09/21/2019 4:09 AM CDT)Only the most recent of10 resultswithin the time period is included. Phosphorus 3.3 2.3 - 4.7 mg/dL [facility] Specimen Blood Performing Organization Address City/[facility]/Zipcode Phone Number [facility] [address] [place] [address] Transfuse Leuko-Red RBC (09/18/2019 9:24 PM CDT)Only the most recent of4 resultswithin the time period is included.FL esophagus (09/18/2019 2:00 PM CDT) Specimen Narrative Performed At FINAL REPORT [facility] Barium esophagogram Clinical History: gerd Discussion: Effervescent crystals, thick barium, and thin barium are given to the patient to drink. Note patient was unabl e to drink in a prone position. There is mild esophageal spasm. Esophage al mucosa, caliber, and gastroesophageal junction are normal. Moderate to severe gastroesophageal reflux is noted. 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 Fluoro time:1.3 minutes Number of images obtained: 13 Impression: Moderate to severe gastroesophageal refl ux. Signed: Karin Henao MD Report Verified Date/Time:09/18/2019 14:37:01 Reading Location: [facility] [address] [place] [address] Reading Room Procedure Note Interface, External Ris In - 09/18/2019 2:39 PM CDT FINAL REPORT Barium esophagogram Clinical History: gerd Discussion: Effervescent crystals, thick barium, and thin barium are given to the patient to drink. Note patient was unabl e to drink in a prone position. There is mild esophageal spasm. Esophage al mucosa, caliber, and gastroesophageal junction are normal. M oderate to severe gastroesophageal reflux is noted. 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 Fluoro time: 1.3 minutes Number of images obtained: 13 Impression: Moderate to severe gastroesophageal refl ux. Signed: Karin Henao MD Report Verified Date/Time: 09/18/2019 1 4:37:01 Reading Location: [facility] [id number] Reading Room Performing Organization Address City/[facility]/Zipcode Phone Number GE RIS FL esoph swallow funct with cine video (09/18/2019 12:51 PM CDT) Specimen Narrative Performed At FINAL REPORT [facility] Modified barium swallow exam with speech pathology service CLINICAL HISTORY: dysphagia, aspiration, reflux, motility IMPRESSION: Please see the speech pathology service report for details. Barium contrast of multiple consistencie s is given to the patient to swallow. Fluoroscopic observation is per formed during swallowing. No aspiration. Fluoro time:Two minutes Number of images: 12 Signed: Karin Henao MD Report Verified Date/Time:09/18/2019 13:23:18 Reading Location: [address] Reading Room Procedure Note Interface, External Ris In - 09/18/2019 1:25 PM CDT FINAL REPORT Modified barium swallow exam with speech pathology service CLINICAL HISTORY: dysphagia, aspiration, reflux, motility IMPRESSION: Please see the speech pathology service report for details. Barium contrast of multiple consistencie s is given to the patient to swallow. Fluoroscopic observation is per formed during swallowing. No aspiration. Fluoro time: Two minutes Number of images: 12 Signed: Karin Henao MD Report Verified Date/Time: 09/18/2019 1 3:23:18 Reading Location: [address] Reading Room Performing Organization Address City/State/Zipcode Phone Number [facility] TRANSFUSION SERVICE REPORT - SCAN (09/17/2019 5:50 PM CDT)Only the most recent of4 resultswithin the time period is included. Narrative Performed At This result has an attachment that is no t available. Urinalysis w/Microscopic + Reflex to Culture (09/17/2019 5:04 PM CDT) Color, UA Yellow [facility] Clarity, UA Clear [facility] Specific [place], UA 1.018 1.001 - 1.035 [facility] pH, UA 5.0 5.0 - 8.0 [facility] Protein, UA 10 mg/dL (A) Negative [facility] Glucose, UA Negative Negative [facility] Ketones, UA Negative Negative [facility] Bilirubin, UA Negative Negative [facility] Blood, UA Negative Negative [facility] Nitrite, UA Negative Negative [facility] Leukocytes, UA Large (A) Negative [facility] Urobilinogen, UA 0.2 0.2 - 1.0 mg/dL [facility] RBC, UA 1 /HPF [facility] WBC, UA 4 /HPF [facility] Bacteria, UA Few [facility] Mucus Few [facility] Squam Epithel, UA <1 /HPF [facility] Hyaline Casts, UA 12 /LPF [facility] Amorphous Crystals Rare [facility] Specimen Source [facility] Specimen Urine Narrative Performed At Cancer Program Consultant ID - [auto] [facility] Cancer Program Consultant ID - tech Performing Organization Address City/State/Zipcode Phone Number [address] [address] CENTER Prepare Leuko-Red RBC (09/16/2019 11:54 PM CDT) CROSSMATCH COMPATIBLE SAFETRACE TX Unit ABO A Neg SAFETRACE TX UNIT NUMBER [id number] SAFETRACE TX Status TX_TIMEINCHART SAFETRACE TX Blood Bank Product RED BLOOD CELLS SAFETRACE TX PRODUCT CODE [id number] SAFETRACE TX Specimen Other Performing Organization Address City/State/Zipcode Phone Number SAFETRACE TX Mid Line (09/16/2019 4:48 PM CDT) Narrative Performed At Sylvia Trejo NP 09/16/19 204:52 PM Mid Line Date/Time: 09/16/2019 4:48 PM Performed by: Sylvia Trejo NP Authorized by: Sylvia Trejo NP Consent: Verbal consent obtained. Risks and benefits: risks, benefits and alternatives were discussed Consent given by: patient Patient understanding: patient states understanding of the procedure being performed Patient consent: the patient's understan ding of the procedure matches consent given Procedure consent: procedure consent mat ches procedure scheduled Relevant documents: relevant documents p resent and verified Test results: test results available and properly labeled Site marked: the operative site was emmie ed Required items: required blood products, implants, devices, and special equipment available Patient identity confirmed: verbally wit h patient, arm band, provided demographic data and hospital-assigned i dentification number Time out: Immediately prior to procedure a "time out" was called to verify the correct patient, procedure, equipmen t, intranet support and site/side marked as required. Indications: vascular access Anesthesia: local infiltration Anesthesia: Local Anesthetic: lidocaine 1% without e pinephrine Sedation: Patient sedated: no Preparation: skin prepped with 2% chlorh exidine Skin prep agent dried: skin prep agent completely drie d prior to procedure Sterile barriers: all five maximum steri le barriers used - cap, mask, sterile gown, sterile gloves, and large sterile sheet Hand hygiene: hand hygiene performed gabino or to central venous catheter insertion Location: Right Basilic Vein Patient position: flat Catheter type: double lumen Catheter size: 4 Fr Pre-procedure: landmarks identified Ultrasound guidance: yes Sterile ultrasound techniques: sterile gel and sterile probe covers were used Number of attempts: 1 Successful placement: yes Post-procedure: dressing applied Assessment: blood return through all por ts and free fluid flow Immediate Post-Procedure Note Assistants to the procedure: None Pre-procedure diagnosis: post op heart s urgery/difficult piv Post-procedure diagnosis: post op heart surgery/difficult piv Procedures Performed: Mid Line Specimens removed: None Estimated blood loss (mL): None Complications: None Type of anesthesia: None Grafts or Implants: None Comments: Catheter length: 17 cm Lot#: [id number] EXP: 08/05/2020 EKG 12 lead (09/16/2019 4:31 AM CDT)Only the most recent of4 resultswithin the time period is included. Specimen Narrative Performed At Ventricular Rate 83 BPM GE MUSE Atrial Rate 84 BPM QRS Duration 98 ms Q-T Interval 378 ms QTC Calculation(Bazett) 444 ms R [place] 40 degrees T [place] 103 degrees Atrial fibrillation T wave abnormality, consider lateral isc hemia or digitalis effect Abnormal ECG When compared with ECG of 15-SEP-2019 04 :16, Atrial fibrillation has replaced Sinus r hythm Nonspecific T wave abnormality now evide nt in Inferior leads Inverted T waves have replaced nonspecific T wave abno rmality in Lateral leads QT has shortened Confirmed by MD LEONARDO JOSEPH P ([id number]) on 0 2:57:56 PM Procedure Note Interface, External Ris In - 09/18/2019 2:58 PM CDT Ventricular Rate 83 BPM Atrial Rate 84 BPM QRS Duration 98 ms Q-T Interval 378 ms QTC Calculation(Bazett) 444 ms R [place] 40 degrees T [place] 103 degrees Atrial fibrillation T wave abnormality, consider lateral isc hemia or digitalis effect Abnormal ECG When compared with ECG of 15-SEP-2019 04 :16, Atrial fibrillation has replaced Sinus r hythm Nonspecific T wave abnormality now evide nt in Inferior leads Inverted T waves have replaced nonspecif ic T wave abnormality in Lateral leads QT has shortened Confirmed by MD LEONARDO JOSEPH P ([id number]) on 09/18/2019 2:57:56 PM Performing Organization Address [facility] Phone Number GE MUSE PT/aPTT (09/16/2019 3:37 AM CDT)Only the most recent of4 resultswithin the time period is included. Protime 16.1 (H) 11.9 - 14.2 seconds [facility] INR 1.3 <=5.9 [facility] PTT 34.3 22.5 - 36.0 seconds [facility] Specimen Blood Narrative Performed At Effective 09/03/2018: PT Reference Range [facility] Change New: 11.9-14.2Previous: 11.7-14.7 RECOMMENDED COUMADIN/WARFARIN INR THERAPY RANGES STANDARD DOSE: 2.0-3.0Includes: PROPHYLAXIS for venous thrombosis, systemic embolization; TREATMENT for venous thrombosis and/or pulmonary embolus. HIGH RISK: Target INR is 2.5-3.5 for patients wiht mechanical heart valves. Performing Organization Address [facility] Phone Number [address] [address] [place] CBC (Hemogram only) (09/16/2019 3:37 AM CDT)Only the most recent of5 results within the time period is included. WBC 10.1 3.5 - 10.5 K/L [facility] RBC 2.78 (L) 3.93 - 5.22 M/L [facility] Hemoglobin 8.3 (L) 11.2 - 15.7 GM/DL [facility] Hematocrit 25.6 (L) 34.1 - 44.9 % [facility] MCV 92.1 79.4 - 94.8 fL [facility] MCH 29.9 25.6 - 32.2 pg [facility] MCHC 32.4 32.2 - 35.5 GM/DL [facility] RDW 15.7 (H) 11.7 - 14.4 % [facility] Platelets 82 (L) 150 - 450 K/CU MM [facility] MPV 11.1 9.4 - 12.3 fL [facility] nRBC 0 0 - 0 /100 WBC [facility] Specimen Blood Performing Organization Address City/[facility] Phone Number [facility] [address] [place] [address] [place] Calcium, Ionized (09/16/2019 3:36 AM CDT)Only the most recent of4 resultswithin the time period is included. Calcium, Ion 1.14 1.12 - 1.27 mmol/L [facility] pH, Blood 7.34 [facility] Specimen Blood Performing Organization Address City/[facility] Phone Number [address] [address] CENTER Prepare RBC (09/15/2019 11:54 PM CDT) CROSSMATCH COMPATIBLE SAFETRACE TX Unit ABO A Neg SAFETRACE TX UNIT NUMBER [id number] SAFETRACE TX Status TX_TIMEINCHART SAFETRACE TX Blood Bank Product RED BLOOD CELLS SAFETRACE TX PRODUCT CODE [id number] SAFETRACE TX CROSSMATCH COMPATIBLE SAFETRACE TX Unit ABO A Neg SAFETRACE TX UNIT NUMBER [id number] SAFETRACE TX Status RETURNED FROM ISSUE SAFETRACE TX Blood Bank Product RED BLOOD CELLS SAFETRACE TX PRODUCT CODE [id number] SAFETRACE TX CROSSMATCH COMPATIBLE SAFETRACE TX Unit ABO A Neg SAFETRACE TX UNIT NUMBER [id number] SAFETRACE TX Status RETURNED FROM ISSUE SAFETRACE TX Blood Bank Product RED BLOOD CELLS SAFETRACE TX PRODUCT CODE [id number] SAFETRACE TX CROSSMATCH COMPATIBLE SAFETRACE TX Unit ABO A Neg SAFETRACE TX UNIT NUMBER [id number] SAFETRACE TX Status RETURNED FROM ISSUE SAFETRACE TX Blood Bank Product RED BLOOD CELLS SAFETRACE TX PRODUCT CODE [id number] SAFETRACE TX Performing Organization Address [facility] Phone Number SAFETRACE TX Oxygen saturation, measured (09/15/2019 3:36 AM CDT)Only the most recent of3 resultswithin the time period is included. O2 Saturation (Measured) 90.6 % [facility] Specimen Blood Performing Organization Address City/[facility] Phone Number [address] [address] CENTER Lactic Acid, Arterial (09/15/2019 3:36 AM CDT)Only the most recent of4 results within the time period is included. Lactate, Art 1.1 0.5 - 2.2 mmol/L [facility] Specimen Blood, Arterial Narrative Performed At Cancer Program Consultant IFRAH Quinonez [facility] Performing Organization Address City/[facility] Phone Number [address] [address] [place] Blood gas, arterial (09/15/2019 3:36 AM CDT)Only the most recent of9 results within the time period is included. pH, Arterial 7.34 (L) 7.35 - 7.45 [facility] pCO2, Arterial 44 35 - 45 mmHg [facility] pO2, Arterial 199 (H) 80 - 90 mmHg [facility] O2 Sat, Arterial 99.3 (H) 96.0 - 97.0 % [facility] HCO3, Arterial 23 21 - 29 mmol/L [facility] Base Excess, Arterial -2.5 (L) -2.0 - 3.0 mmol/L [facility] Patient Temperature 37.0 C [facility] FIO2 36.0 % [facility] Specimen Blood, Arterial Performing Organization Address City/[facility]/Zipcode Phone Number [address] [address] [place] HGB/HCT (H&H)-Stat Lab (09/14/2019 6:51 PM CDT)Only the most recent of7 resultswithin the time period is included. Hemoglobin 9.0 (L) 12.0 - 15.0 g/dL [facility] Hematocrit 26.0 (L) 36.0 - 45.0 % [facility] Specimen Blood, Arterial Performing Organization Address City/[facility]/Zipcode Phone Number [address] [address] [place] Bronchial culture + gram stain (09/14/2019 5:37 PM CDT) Result 4+ Pseudomonas aeruginosa [facility] (Mucoid-phenotype) (A) MEDICAL C ENTER Result 4+ Pseudomonas aeruginosa (A) [facility] Result 1 out of 4 media Aspergillus [facility] species (A) MEDICAL CENTER Gram Stain Result 2+ WBCs [facility] Gram Stain Result 2+ gram negative rods [facility] Specimen BAL Organism Antibiotic Method Susceptibility Pseudomonas aeruginosa Amikacin <=8: Susc eptible (Mucoid-phenotype) Pseudomonas aeruginosa Aztreonam 8: Suscep tible (Mucoid-phenotype) Pseudomonas aeruginosa Cefepime <=4: Susc eptible (Mucoid-phenotype) Pseudomonas aeruginosa Ceftazidime 2: Suscep tible (Mucoid-phenotype) Pseudomonas aeruginosa Ciprofloxacin <=0.5: Lucia sceptible (Mucoid-phenotype) Pseudomonas aeruginosa Gentamicin <=2: Susc eptible (Mucoid-phenotype) Pseudomonas aeruginosa Levofloxacin <=1: Susc eptible (Mucoid-phenotype) Pseudomonas aeruginosa Meropenem <=0.5: Lucia sceptible (Mucoid-phenotype) Pseudomonas aeruginosa Piperacillin <=16: Mini ceptible (Mucoid-phenotype) Pseudomonas aeruginosa Piperacillin + Tazobactam 32: Resistant (Mucoid-phenotype) Pseudomonas aeruginosa Tobramycin <=2: Susc eptible (Mucoid-phenotype) Pseudomonas aeruginosa Amikacin <=8: Susc eptible Pseudomonas aeruginosa Aztreonam 16: Resis tant Pseudomonas aeruginosa Cefepime 8: Suscep tible Pseudomonas aeruginosa Ceftazidime 8: Suscep tible Pseudomonas aeruginosa Ciprofloxacin <=0.5: Lucia sceptible Pseudomonas aeruginosa Gentamicin <=2: Susc eptible Pseudomonas aeruginosa Levofloxacin <=1: Susc eptible Pseudomonas aeruginosa Meropenem <=0.5: Lucia sceptible Pseudomonas aeruginosa Piperacillin 64: Resis tant Pseudomonas aeruginosa Piperacillin + Tazobactam 64: Resistant Pseudomonas aeruginosa Tobramycin <=2: Susc eptible Performing Organization Address City/State/Zipcode Phone Number [facility] MEDICAL [address] [place] [address] CENTER aPTT (09/14/2019 3:31 PM CDT)Only the most recent of6 resultswithin the time period is included. PTT 28.7 22.5 - 36.0 seconds [facility] Specimen Blood Performing Organization Address [facility] Phone Number [address] [address] CENTER Prothromin time/INR (09/14/2019 3:31 PM CDT)Only the most recent of2 results within the time period is included. Protime 17.3 (H) 11.9 - 14.2 seconds [facility] INR 1.5 <=5.9 [facility] Specimen Blood Narrative Performed At Effective 09/03/2018: PT Reference Range [facility] Change New: 11.9-14.2Previous: 11.7-14.7 RECOMMENDED COUMADIN/WARFARIN INR THERAPY RANGES STANDARD DOSE: 2.0-3.0Includes: PROPHYLAXIS for venous thrombosis, systemic embolization; TREATMENT for venous thrombosis and/or pulmonary embolus. HIGH RISK: Target INR is 2.5-3.5 for patients wiht mechanical heart valves. Performing Organization Address City/[facility] Phone Number [address] [address] [place] Fibrinogen (09/14/2019 3:31 PM CDT) Fibrinogen 270 225 - 434 mg/dl [facility] Specimen Blood Performing Organization Address City/[facility] Phone Number [address] [address] CENTER Platelet count (09/14/2019 3:31 PM CDT) Platelets 95 (L) 150 - 450 K/CU MM [facility] Specimen Blood Narrative Performed At Cancer Program Consultant ID - [id number] [facility] Performing Organization Address [facility]/Zipcode Phone Number [address] [address] CENTER Potassium-STAT (09/14/2019 3:31 PM CDT) Potassium 4.6Comment: Specimen slightly 3.5 - 5.1 meq/L [facility] hemolyzed [facility] Specimen Blood Narrative Performed At Cancer Program Consultant ID - BS [facility] Performing Organization Address City/[facility]/Zipcode Phone Number [address] [address] CENTER Glucose-STAT (09/14/2019 3:31 PM CDT) Glucose 218 (H) 70 - 105 mg/dL [facility] Specimen Blood Narrative Performed At Cancer Program Consultant ID - BS [facility] Performing Organization Address [facility] Phone Number [address] [address] CENTER Potassium-Stat Lab (09/14/2019 3:30 PM CDT)Only the most recent of6 results within the time period is included. Potassium 4.5 3.6 - 5.5 meq/L [facility] Specimen Blood, Arterial Performing Organization Address [facility] Phone Number [address] [address] [place] Sodium Na-Stat Lab (09/14/2019 3:30 PM CDT)Only the most recent of6 results within the time period is included. Sodium 136 136 - 145 meq/L [facility] Specimen Blood, Arterial Performing Organization Address City/[facility] Phone Number [address] [address] CENTER Glucose-Stat Lab (09/14/2019 3:30 PM CDT)Only the most recent of6 resultswithin the time period is included. Glucose 221 (H) 70 - 110 mg/dL [facility] Specimen Blood, Arterial Performing Organization Address City/[facility] Phone Number [address] [address] [place] POC ACTIVATED CLOTTING TIME (09/14/2019 1:41 PM CDT)Only the most recent of4 resultswithin the time period is included. Activated Clotting Time 109Comment: : 74-137 sec [facility] seconds, Baseline: TESTED [facility] AT [address], [address]: Cancer Program Consultant/Panel Fitter ID = [id number] for VERONICA ACKERMAN Specimen Blood Performing Organization Address City/State/Zipcode Phone Number [address] [address] [place] SARS-CoV2/RT-PCR (Asymptomatic ONLY) (09/13/2019 4:18 PM CDT) SARS-COV2/RT-PCR Not Detected Not Detected, Negative [facility] SARS-COV-2 PERFORMING LAB [facility] Specimen Other Narrative Performed At Negative results do not preclude SARS-CoV-2 [facility] infection and should not be used as the sole basis for patient management decisions. Negative results must be combined with clinical observations, patient history, and epidemiological information. A false negative result may occur if a specimen is improperly collected, transported or handled. The limit of detection for this assay is 250 copies/mL. This SARS CoV-2 test is a rapid, real-time RT-PCR test intended for the qualitative detection of nucleic acid from SARS-CoV-2 in a nasopharyngeal swab specimen collected from individuals suspected of COVID-19 by their healthcare provider. This test has not been Food and Drug Administration (FDA) cleared or approved and has been authorized by FDA under an Emergency Use Authorization (EUA). This EUA will be effective until the declaration that circumstances exist justifying the authorization of the emergency use of in vitro diagnostic tests for detection and/or diagnosis of COVID-19 is terminated under Section 564(b)(2) of the Act or the EUA is revoked under Section 564(g) of the Act. Fact Sheet for Healthcare Providers: https://www.StockTwits.Hintsoft/Documents/Xpert%20Xpre ss%20SARS%20CoV-2/Fact%20Sheets/302-3802%20SAR S-COV-2%20HEALTHCARE%20PROVIDERS%20FACT%20SHEE T.pdf Fact Sheet for Healthcare Patients: https://www.Helium/Documents/Xpert%20Xpre ss%20SARS%20CoV-2/Fact%20Sheets/302-3801%20SAR S-COV-2%20PATIENT%20FACT%20SHEET.pdf Performing Laboratory: [address] [address] Performing Organization Address City/State/Zipcode Phone Number [address] [address] CENTER 2D Echo W/Doppler(CW/PW/Color) (09/13/2019 1:55 PM CDT) Ejection Fraction [facility] Specimen Narrative Performed At Transthoracic Echocardiography Report (T TE) [facility] Demographics Patient Name ELLIS, ANYETTEDate of Study09/13/2019 [id number] Gender Fem latanya Visit Number [id number] Room NumberSCPR Number Date of Birth1Referring Chayo Zayas Age78 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 Clinical History HGB 9.2 HCT 28.9 % CHF CAD HTN CORONARY ANGIOPLASTY WITH STENT PLACEMEN T Contrast Medium: Definity. Amount - 2 ml Height: 62 inches Weight: 73.03 kg (161 lbs) BSA: 1.74 m^2 BMI: 29.45 kg/m^2 HR: 50 bpm BP: 140/60 mmHg Summary The left ventricle is chamber size (by PSLAX dimension) is normal (female - LVIDd 3.8-5.2cm) . All of the LV segments contract normally . Estimated LVEF by qualitative assessment is normal (55-60%) . Normal diastolic function. Estimated peak systolic PA pressure is 25-30 mmHg (normal range) . Previous Study No prior exam available for comparison. Signature Findings Left Ventricle The left ventricle is chamber size (by PSLAX di mension) is normal (female - LVIDd 3.8-5 .2cm) . LV septal thickness is normal (0.6-1.1cm). LV po sterior wall thickness is mildly increas ed (1 .2-1.4cm) . Al l of the LV segments contract normally . Gl obal LV systolic function normal . Es timated LVEF by qualitative assessment i s normal (5 5-60%) . No rmal diastolic function. Left AtriumLA size is normal (16-34 ml/m2) . Right VentricleThe right ventricular chamber size and systolic fu nction are within normal limits. Right Atrium RA cavity size is normal . Aortic Valve Mild AoV cusp thickening. Ao V cusp mobility is normal . Mitral Valve Mild MV leaflet thickening. Mi ld mitral annular calcification. Tricuspid ValveA trace of tricuspid regurgitation. Es timated peak systolic PA pressure is 25- 30 mmHg (n ormal range) . Pulmonic Valve Normal PV structure and function. AortaAortic root size (SInus of Valsalva diameter) i s no rmal . PericardiumNo significant pericardial effusion is visualized. IVC/SVC/PA/PV/PleuralThe right upper pulmonary vein (RUPV) is normal . Th e estimated RA pressure by IVC dynamics 5-10mmHg . Chambers/Structures Left Atrium LA Volume: 55.07 ml LA Area: 19.33 cm^2 LA Vol. Index: 32 ml/m^2 Left Ventricle LVIDd: 4.53 cm LVEDV:10 8.49 ml LV Septum Diastolic: 0.9 cm LV PW Diastolic: 1.4 cm LVOT Diameter: 1.99 cm Right Ventricle RVOT VTI: 17.87 cm TAPSE: 2.85 cm Aorta Ao Root S of Rosette.: 2.8 cm Doppler/Quantitative Measurements Mitral Valve MV Peak E-Wave: 0.86 m/sMV Peak A-Wave: 0.83 m/s E/A Ratio: 1. 04 Peak Gradient: 2.95 mmHg Deceleration Time: 228.8 msec MV Joseluis. Peak: Tissue Doppler E' Septal Velocity: 0.07 m/sE/E': 12.92 E' Lateral Velocity: 0.07 m/s Aortic Valve Peak Velocity: 1.03 m/sMean Velocity: 0.72 m/s Peak Gradient: 4.23 mmHg Mean Gradient: 2.36 mmHg AV Area (continuity): 3.1 cm^2 AV VTI: 24.39 cm AV DVI: 1 LVOT Peak Velocity: 0.92 m/s Peak Gradient: 3.41 mmHg Mean Velocity: 0.62 m/s Mean Gradient: 1.79 mmHg LVOT Diameter: 1.99 cmLVOT VTI: 24.3 cm LVOT Area: 3.11 cm^2LVOT SV:75.54 ml LVOT CO: 3.78 l/min LVOT CI: 2.17 l/min/m^2 Tricuspid Valve TR Velocity: 2.33 m/s TR Gradient: 21.72 mmHg Procedure Note Interface, External Ris In - 09/14/2019 9:36 AM CDT Transthoracic Echocardiography Report (TTE) Demographics Patient Name YEISON ELLIS Date of Study 09/13/2019 Gender Female Visit Number [id number] [facility] 1940 No alvarado Physician Jaden Zayas Age 78 year(s) Sonograp her Abed Paul Real Time Analyst Raina Grady MD, MD Procedure Type of Study TTE procedure:2DECHO W DOPPLE R(CW/PW/COLOR) (BRIGHT) Indications:Acute Chest Pain/ Suspected CAD. Clinical History HGB 9.2 HCT 28.9 % CHF CAD HTN CORONARY ANGIOPLASTY WITH STENT PLACEMEN T Contrast Medium: Definity. Amount - 2 ml Height: 62 inches Weight: 73.03 kg (161 lbs) BSA: 1.74 m^2 BMI: 29.45 kg/m^2 HR: 50 bpm BP: 140/60 mmHg Summary The left ventricle is chamber size (by PSLAX dimension) is normal (female - LVIDd 3.8-5.2cm) . All of the LV segm ents contract normally . Estimated LVEF by qualitative assessment is malachi l (55-60%) . Normal diastolic function. Estimated peak systolic PA pressure is 25-30 mmHg (normal range) . Previous Study No prior exam available for comparison. Signature Findings Left Ventricle The left ventric le is chamber size (by PSLAX dimension) is no rmal (female - LVIDd 3.8-5.2cm) . LV septal thickn ess is normal (0.6-1.1cm). LV posterior wall t hickness is mildly increased (1.2-1.4cm) . All of the LV se gments contract normally . Global LV systol ic function normal . Estimated LVEF b y qualitative assessment is normal (55-60%) . Normal diastolic function. Left Atrium LA size is malachi l (16-34 ml/m2) . Right Ventricle The right ventri cular chamber size and systolic function are wit hin normal limits. Right Atrium RA cavity size i s normal . Aortic Valve Mild AoV cusp th ickening. AoV cusp mobilit y is normal . Mitral Valve Mild MV leaflet thickening. Mild mitral sierra lar calcification. Tricuspid Valve A trace of tricu spid regurgitation. Estimated peak s ystolic PA pressure is 25-30 mmHg (normal range) . Pulmonic Valve Normal PV struct ure and function. Aorta Aortic root size (SInus of Valsalva diameter) is normal . Pericardium No significant p ericardial effusion is visualized. IVC/SVC/PA/PV/Pleural The right upper pulmonary vein (RUPV) is normal . The estimated RA pressure by IVC dynamics 5-10mmHg . Chambers/Structures Left Atrium LA Volume: 55.07 ml LA Area: 19.33 cm^2 LA Vol. Index: 32 ml/m^2 Left Ventricle LVIDd: 4.53 cm LVEDV:108.49 ml LV Septum Diastolic: 0.9 cm LV PW Diastolic: 1.4 cm LVOT Diameter: 1.99 cm Right Ventricle RVOT VTI: 17.87 cm TAPSE: 2.85 cm Aorta Ao Root S of Rosette.: 2.8 cm Doppler/Quantitative Measurements Mitral Valve MV Peak E-Wave: 0.86 m/s M V Peak A-Wave: 0.83 m/s E /A Ratio: 1.04 P eak Gradient: 2.95 mmHg D eceleration Time: 228.8 msec MV Joseluis. Peak: Tissue Doppler E' Septal Velocity: 0.07 m/s E /E': 12.92 E' Lateral Velocity: 0.07 m/s Aortic Valve Peak Velocity: 1.03 m/s Mean Velocity: 0.72 m/s Peak Gradient: 4.23 mmHg Mean Gradient: 2.36 mmHg AV Area (continuity): 3.1 cm^2 AV VTI: 24.39 cm AV DVI: 1 LVOT Peak Velocity: 0.92 m/s Pea k Gradient: 3.41 mmHg Mean Velocity: 0.62 m/s Jen n Gradient: 1.79 mmHg LVOT Diameter: 1.99 cm LVO T VTI: 24.3 cm LVOT Area: 3.11 cm^2 LVO T SV:75.54 ml LVOT CO: 3.78 l/min LVO T CI: 2.17 l/min/m^2 Tricuspid Valve TR Velocity: 2.33 m/s TR Gradient: 21.72 mmHg Performing Organization Address City/State/Zipcode Phone Number [facility] CP[facility] ABORH, manual (09/13/2019 5:43 AM CDT) ABO Grouping A [facility] Rh Factor NEG [facility] Specimen Blood Performing Organization Address City/[facility]/Zipcode Phone Number [address] [phone] Platelet Aggregation: Function Screen (09/13/2019 4:38 AM CDT)Only the most recent of2 resultswithin the time period is included. Pathologist: Phil Mcguire M.D. [facility] (electonic signature) [facility] Platelets 160 150 - 450 K/CU [facility] MM [facility] ER ADP 71 62 - 100 % [facility] Platelet Rich Plasma 179 (L) 200 - 300 k/cu [facility] Plt. Function Screen Normal aggregation [facility] Interpretation results with ADP. No [facility] evidence of platelet dysfunction or P2Y12 inhibitor effect. Specimen Blood Narrative Performed At Platelet Function Screen results may be [facility] falsely low with platelet counts <75,000/cu mm. Cancer Program Consultant ID - [id number] Performing Organization Address [facility] Center[facility] Phone Number [address] [phone] CENTER Type and screen, automated (09/13/2019 4:37 AM CDT) ABO/RH AUTOMATED (BEAKER) A NEGATIVE [facility] Ab Scrn NEGATIVE [facility] Specimen Blood Performing Organization Address City/[facility]/Zipcode Phone Number [address] [address] Hemoglobin A1c (09/13/2019 4:37 AM CDT) Hemoglobin A1C 6.7 (H) 4.3 - 6.1 % [facility] Specimen Blood Performing Organization Address City/[facility]/Zipcode Phone Number [facility] [address] [place] [address] [place] Lipid panel (09/13/2019 4:37 AM CDT) Triglycerides 83 mg/dL [facility] Cholesterol 143 mg/dL [facility] HDL 42 mg/dL [facility] LDL Calculated 84 mg/dL [facility] Specimen Blood Narrative Performed At Triglyceride Reference Range: [facility] Low Risk <150 [id number] High Risk 200-499 Very High Risk>=500 Cholesterol Reference Range: Low Risk <200 [id number] High Risk>240 HDL Cholesterol Reference Range: Low Risk >=60 High Risk <40 LDL Cholesterol Reference Range: Optimal<100 Near Oarvexf015-767 Tieirctdst832-356 Cfus586-538 Very High >=190 Cancer Program Consultant ID - DANO Quinonez Performing Organization Address City/[facility]/Zipcode Phone Number [address] [address] [place] Carotid doppler bilateral (09/12/2019 7:30 PM CDT) Ejection Fraction [facility] Specimen Impressions Performed At Right Impression [facility] 1. Post stent, there is <50% diameter reduction (unable to obtain 2-D measurement) in the internal carotid artery with a peak velocity of 84/15 cm/sec and heterogeneous shadowing plaqu e. 2. There is a stent visualized in the distal common carotid extending into the proximal internal carotid artery with velocities of :' Prox:85/19cm/sec Mid: 85/21cm/sec Dist: 83/34cm/sec 3. There is >50% stenosis in the external carotid artery with a velocity of 162/19cm/sec. 4. There is non-occluding plaque in the common carotid artery. 5. The vertebral artery flow is antegrade and normal. 6. The subclavian artery is within normal limits where visualized. Left Impression 1. There is <50% diameter reduction (unable to obtain 2-D measurement) in the tortuous internal carotid artery with a peak velocity of 85/26 cm/sec and heterogeneous shadowing plaque. 2. There is >50% stenosis in the external carotid artery with a velocity of 111cm/sec. 3. There is non-occluding plaque in the common carotid artery. 4. The vertebral artery flow is antegrade and normal. 5. The subclavian artery is within normal limits where visualized. Conclusions Summary Carotid duplex scanning and color flow imaging were performed bilaterally. The arteries were adequately visualized. Post stent, the right internal carotid artery had <50% hemodynamically insignificant stenosis with heterogeneous shadowing plaque. Stent velocities are stated above. The left tortuous internal carotid artery had <50% hemodynamically insignificant stenosis with heterogeneous shadowing plaque. The bilateral external carotid arteries had > 50% stenosis. The vertebral artery flow was antegrade and normal bilaterally. The subclavian arteries were patent with normal flow bilaterally where visu alized. Signature Velocities are measured in cm/s ; Diameters are measured in cm Carotid Right Measurements + +----+----+-----+ +---- + + !Location !PSV !EDV !Angle!%Stenosis 2D!%Stenosis Doppler!Tortuosity ! + +----+----+-----+ +---- + + !Prox CCA !77!21.1!60 !! ! ! + +----+----+-----+ +---- + + !Dist CCA !85.1!19.9!60 !! ! ! + +----+----+-----+ +---- + + !Prox ICA !84.9!15.6!60 !!<50% ! ! + +----+----+-----+ +---- + + !Dist ICA !106 !25.1!60 !! ! ! + +----+----+-----+ +---- + + !Prox ECA !162 !19.9!60 !!>50% ! ! + +----+----+-----+ +---- + + !Vertebral!101 !17.3!60 !! ! ! + +----+----+-----+ +---- + + !Prox Subclavian!105 !!60 !! ! ! + +----+----+-----+ +---- + + - There is antegrade vertebral flow noted on the right side. - Additional Measurements:ICAPSV/CCAPSV 1.25.ICAEDV/CCAEDV 1.19. Carotid Left Measurements + +----+----+-----+ +---- + + !Location !PSV !EDV !Angle!%Stenosis 2D!%Stenosis Doppler!Tortuosity ! + +----+----+-----+ +---- + + !Prox CCA !75.7!18.9!60 !! ! ! + +----+----+-----+ +---- + + !Dist CCA !63.1!18.2!60 !! ! ! + +----+----+-----+ +---- + + !Prox ICA !85.5!26.6!60 !!<50% !Mild ! + +----+----+-----+ +---- + + !Dist ICA !125 !29.4!60 !! ! ! + +----+----+-----+ +---- + + !Prox ECA !111 !!60 !!>50% ! ! + +----+----+-----+ +---- + + !Vertebral!70.1!17.5!60 !! ! ! + +----+----+-----+ +---- + + !Prox Subclavian!110 !!60 !! ! ! + +----+----+-----+ +---- + + - There is antegrade vertebral flow noted on the left side. - Additional Measurements:ICAPSV/CCAPSV 1.98.ICAEDV/CCAEDV 1.56. Narrative Performed At LAB - Carotid Duplex Study [facility] Demographics Patient Name YEISON ELLIS Date of Study09/12/2019 [id number] Age 78 Visit Number [id number] Gender Female Accession Number [id number] Date of Birth1940 ReferringPeter Wapwallopen Room [id number] MD Paul SonographSharda James GagdevinInterpreting Pauly Chow MD RVT Physician Procedure Type of Study: Cerebral: Carotid, CAROTID DOPPLER, ISHMAEL ATERAL. Indications for Study:Evaluate for carotid stenosis . Patient Status:TODAY. Study Location:Portable. Technical Quality:Adequate visualization . Risk Factors History of Disease + + + + !Diagnosis !Date!Comments ! + + + + !History/Risk Factors: !09/12/2019!Carotid artery stent(right) ! ! !!CAD ! + + + + Procedure Note Interface, External Ris In - 09/12/2019 9:31 PM CDT [facility] LAB - Carotid Duplex Study Demographics Patient Name YEISON ELLIS Milad e of Study 09/12/2019 Age 78 Visit Number [id number] Gen jackie Female Accession Number [id number] Milad e of 1940 Referring Satinder Morton m Number [id number] Physician MD Theresa Filter Cleaner Padmaja Davis Int erpreting Pauly Chow MD RVT Shanelle aguilar Procedure Type of Study: Cerebral: Carotid, CAROTID DOPPLER, ISHMAEL ATERAL. Indications for Study:Evaluate for carot id stenosis . Patient Status:TODAY. Study Location:Portable. Technical Quality:Adequate visualization . Risk Factors History of Disease + + +- + !Diagnosis !Date !C omments ! + + +- + !History/Risk Factors: !09/12/2019!C arotid artery stent(right) ! ! ! !C AD ! + + +- + Impressions Right Impression 1. Post stent, there is <50% diameter re duction (unable to obtain 2-D measurement) in the internal carotid art waldemar with a peak velocity of 84/15 cm/sec and heterogeneous shadowing plaqu e. 2. There is a stent visualized in the di stal common carotid extending into the proximal internal carotid artery wit h velocities of :' Prox:85/19cm/sec Mid: 85/21cm/sec Dist: 83/34cm/sec 3. There is >50% stenosis in the externa l carotid artery with a velocity of 162/19cm/sec. 4. There is non-occluding plaque in the common carotid artery. 5. The vertebral artery flow is antegrad e and normal. 6. The subclavian artery is within malachi l limits where visualized. Left Impression 1. There is <50% diameter reduction (anca ble to obtain 2-D measurement) in the tortuous internal carotid artery wit h a peak velocity of 85/26 cm/sec and heterogeneous shadowing plaque. 2. There is >50% stenosis in the externa l carotid artery with a velocity of 111cm/sec. 3. There is non-occluding plaque in the common carotid artery. 4. The vertebral artery flow is antegrad e and normal. 5. The subclavian artery is within malachi l limits where visualized. Conclusions Summary Carotid duplex scanning and color flow imaging were performed bilaterally. The arteries were adequately visualized . Post stent, the right internal carotid artery had <50% hemodynamically insignificant stenosis with heterogeneous shadowing plaque. Stent v elocities are stated above. The left tortuous internal carotid artery h ad <50% hemodynamically insignificant stenosis with heterogeneo us shadowing plaque. The bilateral external carotid arteries had > 50% kenneth nosis. The vertebral artery flow was antegrade and normal bilaterally. T he subclavian arteries were patent with normal flow bilaterally where visu alized. Signature Velocities are measured in cm/s ; Diamet ers are measured in cm Carotid Right Measurements + +----+----+-----+------- -----+ + + !Location !PSV !EDV !Angle!%Stenos is 2D!%Stenosis Doppler!Tortuosity ! + +----+----+-----+------- -----+ + + !Prox CCA !77 !21.1!60 ! ! ! ! + +----+----+-----+------- -----+ + + !Dist CCA !85.1!19.9!60 ! ! ! ! + +----+----+-----+------- -----+ + + !Prox ICA !84.9!15.6!60 ! !<50% ! ! + +----+----+-----+------- -----+ + + !Dist ICA !106 !25.1!60 ! ! ! ! + +----+----+-----+------- -----+ + + !Prox ECA !162 !19.9!60 ! !>50% ! ! + +----+----+-----+------- -----+ + + !Vertebral !101 !17.3!60 ! ! ! ! + +----+----+-----+------- -----+ + + !Prox Subclavian!105 ! !60 ! ! ! ! + +----+----+-----+------- -----+ + + - There is antegrade vertebral flow no carson on the right side. - Additional Measurements:ICAPSV/CCAPS V 1.25.ICAEDV/CCAEDV 1.19. Carotid Left Measurements + +----+----+-----+------- -----+ + + !Location !PSV !EDV !Angle!%Stenos is 2D!%Stenosis Doppler!Tortuosity ! + +----+----+-----+------- -----+ + + !Prox CCA !75.7!18.9!60 ! ! ! ! + +----+----+-----+------- -----+ + + !Dist CCA !63.1!18.2!60 ! ! ! ! + +----+----+-----+------- -----+ + + !Prox ICA !85.5!26.6!60 ! !<50% !Mild ! + +----+----+-----+------- -----+ + + !Dist ICA !125 !29.4!60 ! ! ! ! + +----+----+-----+------- -----+ + + !Prox ECA !111 ! !60 ! !>50% ! ! + +----+----+-----+------- -----+ + + !Vertebral !70.1!17.5!60 ! ! ! ! + +----+----+-----+------- -----+ + + !Prox Subclavian!110 ! !60 ! ! ! ! + +----+----+-----+------- -----+ + + - There is antegrade vertebral flow no carson on the left side. - Additional Measurements:ICAPSV/CCAPS V 1.98.ICAEDV/CCAEDV 1.56. Performing Organization Address [facility] Centerbcode Phone Number [facility]ON [facility] Troponin I (09/12/2019 10:53 AM CDT)Only the most recent of2 resultswithin the time period is included. Troponin I 1.26 (HH) 0.00 - 0.03 ng/mL [facility] Specimen Blood Narrative Performed At Troponin I (TnI) levels must be interpreted [facility] in the context of the presenting symptoms and the clinical findings. Elevated TnI levels indicate myocardial damage, but are not specific for ischemic heart disease. Elevated TnI levels are seen in patients with other cardiac conditions (including myocarditis and congestive heart failure), and slight TnI elevations occur in patients with other conditions, including sepsis, renal failure, acidosis, acute neurological disease, and persistent tachyarrhythmia. Cancer Program Consultant ID - CHAO Sutton Performing Organization Address [facility]/[employer] Phone Number [facility] [address] [place] [address] CENTER after 10/11/2018 Insurance Payer Benefit Plan / Group Subscriber ID Type Phone A ddress MEDICARE MEDICARE A B xxxxxxxxxxx Medicare [place] MEDICAID MEDICAID [place] xxxxxxxxx CDC REVIEW CDC REVIEW xxxxx[place] [address] [place] [place] [address] Advance Directives For more information, please contact:[facility] [place], [place] [phone] Code Status Date Activated Date Inactivated Comments Full Code 09/18/2019 5:50 PM 09/30/2019 2:52 PM This code status was determined by: Patient Full Code 09/14/2019 3:24 PM 09/18/2019 5:28 PM This code status was determined by: Patient Full Code 09/13/2019 12:26 AM 09/14/2019 3:23 PM This code status was determined by: Patient Full Code 09/12/2019 2:00 AM 09/13/2019 12:26 AM This code status was determined by: Patient
--- OUTSIDE RECORDS SUMMARY | 2019-10-12 18:33 | XMS REPORT | Continuity of Care Document ---
:1940 Author Organization [facility] t Address [address] [place] [address] Care Team Providers Name Role Phone Pcp Primary Care Physician Unavailable Truman Chi Attending Clinician TRUMAN [facility] Attending Clinician Unavailable ANNETTE CORREA Attending Clinician Unavailable Annette Correa MD Attending Clinician Geoffrey Meredith MD Attending Clinician Michael ANTHONY Attending Clinician Michael Montana MD Attending Clinician TRUMAN [facility] Admitting Clinician Unavailable ANNETTE CORREA Admitting Clinician Unavailable Payers Payer Name Policy Policy Number Effective Expiration Source Type Date Date MEDICAREMEDICARE A xxxxxxxxxxx [facility] Bxxxxxxxxxxx[facility]ic[facility] TORREZ MEDICAIDMEDICAID xxxxxxxxx [facility] MOLINAxxxxxxxxx [facility] CDC REVIEWCDC xxxxxxxx [facility] REVIEWxxxxxxxxPO [place], [place] Medical [id number] Center Problems Condition Condition Condition Status Onset Resolution Last Treating Co mments Source Name Details Category Date Date Treatment Clinician Date CHF CHF Disease Active [facility] (congestiv (congestiv 6-09 Mar[facility] kes - e heart e heart 00:00: Medical failure) failure) 00 Center Coronary Coronary Disease Active [facility] artery artery 09-14 kes - disease disease 00:00: Medical 00 [facility] Chronic Chronic Disease Active 2019- [facility] back pain back pain 09-14 [facility] - 00:00: Medical 00 [facility] Arthritis Arthritis Disease Active 2019- [facility] 09-14 [facility] - 00:00: Medical 00 [facility] NSTEMI NSTEMI Disease Active [facility] (non-ST (non-ST 09-11 [facility] - elevated elevated 00:00: Medica l myocardial myocardial 00 Ce nter infarction infarction ) ) S/P ACB x2 S/P ACB x2 Disease Active [facility] EMANUEL TO EMANUEL TO [facility] - LAD and LAD and Medical SAPHENOUS SAPHENOUS Cent er VEIN TO OM VEIN TO OM Dr. Dr. Nan Montana 09/14/2019 09/14/2019 Acute Acute Disease Active [facility] St blood loss blood loss [facility] anemia anemia [facility] Acute Acute Disease Active [facility] respirator respirator [facility] - y y Medical insufficie insufficie Ce nter ncy ncy Hypovolemi Hypovolemi Disease Active C [facility] c shock c shock [facility] Vasogenic Vasogenic Disease Active [facility] St shock shock [facility] Metabolic Metabolic Disease Active [facility] acidosis acidosis [facility] Allergies, Adverse Reactions, Alerts Allergy Allergy Status Severity Reaction(s) Onset Inactive Treating Comm ents Source Name Type Date Date Clinician Cauliflo Propensi Active Nausea And [address] [facility] ty to Vomiting 09-11 [facility] - adverse 00:00: Medical reaction 00 [facility] s Propoxyp Propensi Active Nausea And [facility] hene ty to Vomiting 09-11 [facility] - N-Acetam adverse 00:00: Medical inophen reaction 00 [facility] Iodine Propensi Active Rash [facility] And ty to 09-11 [facility] - Iodide adverse 00:00: Medical Containi reaction 00 [facility] ng s Products Statins- Propensi Active Nausea And [address] Hmg-Coa ty to Vomiting 09-11 [facility] - Reductas adverse 00:00: Medical e reaction 00 [facility] Inhibito s rs Social History Social Habit Start Date Stop Date Quantity Comments Source History SDOH Alcohol [facility] Std Drinks [facility] History SDOH Alcohol [facility] - Binge [facility] Sex Assigned [facility] History SDOH Alcohol 2019-09-12 2019-09-[address] [facility] - Frequency 00:00:00 00:00:00 Medical Center Smoking Status Start Date Stop Date Source Never smoker [facility] Medications Ordered Filled Start Stop Current Ordering Indication Dosage Frequency Signature Comments Components Source Medication Medication Date Date Medication? Clinician (SIG) Name Name lisinopriL 2020- Yes 2.5mg QD Take [address] (PRINIVIL,Z 09-30 tablet [facility] - ESTRIL) 2.5 00:00: 23:59 (2.5 mg Me dical MG tablet 00 :00 total) by Cente r mouth daily. ramipriL 2019- No 10mg QD Take [address] (ALTACE) 10 09-29 by mouth Irish es - MG capsule 10:29: 00:00 daily. Medi deep 47 :00 Center pantoprazol Yes 40mg QD Take [address] e 09-29 tablet (40 [facility] - (PROTONIX) 00:00: mg total) Me dical 40 MG 00 by mouth Center tablet daily. aspirin 81 2020- Yes 81mg QD Take [address] MG chewable 09-29 tablet (81 L ukes - tablet 00:00: 23:59 mg total) Medic al 00 :00 by mouth Center daily. metFORMIN 2020- Yes 500mg Take [address] [facility] (GLUCOPHAGE 09-29 tablet [facility] - ) 500 MG 00:00: 23:59 (500 mg Medic al tablet 00 :00 total) by Center mouth daily with breakfast. clopidogreL 2020- Yes 75mg QD Take [address] (PLAVIX) 75 09-29- tablet (75 L ukes - mg tablet 00:00: 23:59 mg total) Me dical 00 :00 by mouth Center daily. furosemide 2019-2019- No 20mg QD Take [address] (LASIX) 20 -29 09-24 tablet (20 Marci kes - MG tablet 00:00: 00:00 mg total) Me dical 00 :00 by mouth Center daily. clopidogreL 2019- No 75mg QD Take [address] (PLAVIX) 75 -29 09-23 tablet (75 L ukes - mg tablet 00:00: 00:00 mg total) Me dical 00 :00 by mouth Center daily. metFORMIN 2020-0 2020- No 500mg Take [address] [facility] (GLUCOPHAGE 6-24 -23 tablet [facility] - ) 500 MG 00:00: 00:00 (500 mg Medic al tablet 00 :00 total) by Center mouth daily with breakfast. pantoprazol 2019-0 2020- No 40mg QD Take [address] e -29 09-23 tablet (40 [facility] - (PROTONIX) 00:00: 00:00 mg total) M edical 40 MG 00 :00 by mouth Center tablet daily. clopidogreL 2019-0 2020- No 75mg QD Take [address] (PLAVIX) 75 -29 09- tablet (75 L ukes - mg tablet 00:00: 00:00 mg total) Me dical 00 :00 by mouth Center daily. metFORMIN 2019-0 2020- No 500mg Take [address] [facility] (GLUCOPHAGE -29 09- tablet [facility] - ) 500 MG 00:00: 00:00 (500 mg Medic al tablet 00 :00 total) by Center mouth daily with breakfast. pantoprazol 2019-0 2020- No 40mg QD Take [address] e 09-29- tablet (40 [facility] - (PROTONIX) 00:00: 00:00 mg total) M edical 40 MG 00 :00 by mouth Center tablet daily. furosemide 2019-0 2020- No 20mg QD Take [address] (LASIX) 20 09-29- tablet (20 Marci kes - MG tablet 00:00: 00:00 mg total) Me dical 00 :00 by mouth Center daily. ranitidine 2019-0 2020- No heartburn 150mg Take [address] (ZANTAC) 09-28- mg by [facility] - 150 MG 17:25: 00:00 mouth Medical tablet 47 :00 daily as Center needed for Heartburn. aspirin 81 2019-0 2020- No 81mg QD Take [address] MG chewable 09-28- by mouth Irish es - tablet 14:12: 00:00 daily. Medical 25 :00 Center clopidogreL 2019-0 2020- No 75mg QD Take [address] (PLAVIX) 75 09-28-23 by mouth Irish es - mg tablet 14:12: 00:00 daily. Medic al 25 :00 Center metoprolol 2020- No 75mg Q.5D Take [address] tartrate -28 09- by mouth 2 [facility] - (LOPRESSOR) 14:12: 00:00 (two) Medi deep 25 MG 25 :00 times Center tablet daily. HYDROcodone 2019- No 1{tbl} Take [address] -acetaminop -28 09- tablet by Marci faria (NORCO 14:12: 00:00 mouth Medic al 10-325) 25 :00 every 4 Center 10-325 mg (four) per tablet hours as needed for Pain. gabapentin 2019- No 100mg QD Take [address] (NEURONTIN) -28 09- mg by [facility] - 100 MG 14:12: 00:00 mouth Medical capsule 25 :00 nightly. Center methyl Yes 5g Apply [address] salicylate- 09-28 topically Irish es - menthol 00:00: 3 (three) Medic al 15-10 % 00 times Center Crea daily as needed. lancets-blo Yes 1{each} [address] od glucose - Miscellane Irish es - strips 30 00:00: ous route Med ical gauge Cmpk 00 daily as Cente r needed. tamsulosin Yes .4mg QD Take 1 [facility] t (FLOMAX) 6- capsule [facility] - 0.4 mg Cap 00:00: (0.4 mg Medi deep 24 hr 00 total) by Center capsule mouth nightly. glucometer Yes 1{each} [address] (FREESTYLE) 6- Other - [facility] - Misc 00:00: See Admin Medical 00 Instructio Center ns route daily as needed for up to 1 day One. senna 2020- Yes 17.2mg QD Take [address] (SENOKOT) -28 09- tablets [facility] - 8.6 mg 00:00: 23:59 (17.2 mg Medica l tablet 00 :00 total) by Center mouth nightly. sodium 2020- Yes 1{spray [address] chloride -09-28 } Nasal [facility] - 0.65% 00:00: 23:59 route as Medical (OCEAN) 00 :00 needed. Center 0.65 % nasal spray atorvastati 2020- Yes 20mg QD Take [address] n (LIPITOR) 09-28 tablet (20 L ukes - 20 MG 00:00: 23:59 mg total) Medica l tablet 00 :00 by mouth Center nightly. metoprolol 2020- Yes 25mg Q.5D Take [address] tartrate 09-28 tablet (25 [facility] - (LOPRESSOR) 00:00: 23:59 mg total) Medical 25 MG 00 :00 by mouth 2 Center tablet (two) times daily Hold for heart rate < 60 or SBP < 100. gabapentin 2020- Yes 100mg QD Take [address] (NEURONTIN) 09-28 capsule Luke s - 100 MG 00:00: 23:59 (100 mg Medical capsule 00 :00 total) by Center mouth nightly. ipratropium 2020- Yes 3mL Take [address] -albuteroL 09-28 by [facility] - (DUO-NEB) 00:00: 23:59 nebulizati M edical 0.5 mg-3 00 :00 on every 6 Cente r mg(2.5 mg (six) base)/3 mL hours as nebulizer needed for solution Wheezing or Shortness of Breath for up to 360 days. lidocaine 2019- Yes 1{patch Q24H Place [address] (LIDODERM) 09-28 } patch onto Marci kes - 5 % patch 00:00: 23:59 the skin Med ical 00 :00 daily for Center 30 days Remove & Discard patch within 12 hours or as directed by . acetaminoph 2019- No 500mg Take [address] en 09-28 tablet [facility] - (TYLENOL) 00:00: 23:59 (500 mg Medi deep 500 MG 00 :00 total) by Center tablet mouth every 4 (four) hours as needed for Fever (Rectal temperatur e greater than 101.3 degree fahrenheit ) for up to 10 days. docusate 2019- No 200mg Q.5D Take 2 [facility] t sodium 6-23 07-03 capsules [facility] - (COLACE) 00:00: 23:59 (200 mg Medic al 100 MG 00 :00 total) by Center capsule mouth 2 (two) times daily for 10 days. gabapentin 2019- No 100mg QD Take [address] (NEURONTIN) 09-28 capsule Luke s - 100 MG 00:00: 00:00 (100 mg Medical capsule 00 :00 total) by Center mouth nightly. metoprolol 2019- No 25mg Q.5D Take [address] tartrate 09-28 tablet (25 [facility] - (LOPRESSOR) 00:00: 00:00 mg total) Medical 25 MG 00 :00 by mouth 2 Center tablet (two) times daily Hold for heart rate < 60 or SBP < 100. atorvastati 2019- No 20mg QD Take [address] n (LIPITOR) 09-28 tablet (20 L ukes - 20 MG 00:00: 00:00 mg total) Medica l tablet 00 :00 by mouth Center nightly. lidocaine 2019- No 1{patch Q24H Place [address] (LIDODERM) 09-28 } patch onto Marci kes - 5 % patch 00:00: 00:00 the skin Med ical 00 :00 daily for Center 30 days Remove & Discard patch within 12 hours or as directed by . tamsulosin 2019- No .4mg QD Take [address] (FLOMAX) 09-28 capsule [facility] - 0.4 mg Cap 00:00: 00:00 (0.4 mg Med ical 24 hr 00 :00 total) by Center capsule mouth nightly. glucometer 2019- No 1{each} [address] (FREESTYLE) 09-28 Other - Luke s - Misc 00:00: 00:00 See Admin Medical 00 :00 Instructio Center ns route daily as needed for up to 1 day One. gabapentin 2019- No 100mg QD Take [address] (NEURONTIN) 09-28 capsule Luke s - 100 MG 00:00: 00:00 (100 mg Medical capsule 00 :00 total) by Center mouth nightly. lidocaine 2019- No 1{patch Q24H Place [address] (LIDODERM) 09-28 } patch onto Marci kes - 5 % patch 00:00: 00:00 the skin Med ical 00 :00 daily for Center 30 days Remove & Discard patch within 12 hours or as directed by . metoprolol 2019- No 25mg Q.5D Take [address] tartrate 09-28 tablet (25 [facility] - (LOPRESSOR) 00:00: 00:00 mg total) Medical 25 MG 00 :00 by mouth 2 [facility] tablet (two) times daily Hold for heart rate < 60 or SBP < 100. tamsulosin 2019- No .4mg QD Take [address] (FLOMAX) 09-[address] [facility] - 0.4 mg Cap 00:00: 00:00 (0.4 mg Med ical 24 hr 00 :00 total) by [facility] capsule mouth nightly. ipratropium 2019- No 3mL Take [address] -[facility]L 09-28 [facility] (DUO-NEB) 00:00: 00:00 nebulizati M edical 0.5 mg-3 00 :00 on every 6 Cente r mg(2.5 mg (six) base)/3 mL hours as nebulizer needed for solution Wheezing or Shortness of Breath for up to 360 days. Immunizations Ordered Immunization Filled Immunization Date Status Commen ts Source Name Name Pneumococcal 2019-09-12 Completed [facility] - Conjugate (Prevnar) 00:00:00 Medic al [facility] 13-Valent Vital Signs Vital Name Observation Time Observation Value Comments Source Systolic blood 2019-09-30 08:52:00 112 mm[Hg] [facility] Diastolic blood 2019-09-30 08:52:00 56 mm[Hg] [facility] S [facility] Heart rate 2019-09-30 08:52:00 91 /min [facility] Body temperature 2019-09-30 04:52:00 36.28 Mercedes [facility] Respiratory rate 2019-09-30 04:52:00 18 /min [facility] Body weight Measured 2019-09-30 04:52:00 70.852 kg [facility] BMI 2019-09-30 04:52:00 28.49 kg/m2 [facility] Oxygen saturation in 2019-09-30 04:52:00 95 /min [facility] - Arterial blood by Medical Ce nter Pulse oximetry Body height 2019-09-18 19:45:00 157.7 cm [facility] Procedures Procedure Date / Time Performed Performing Clinician [facility] e POCT-GLUCOSE METER 2019-09-30 06:05:00 [facility], [facility] Medical Ce nter BASIC METABOLIC PANEL (7) 2019-09-30 02:00:00 Madeleine Rojas I [facility] BASIC METABOLIC PANEL (7) 2019-09-29 09:13:00 Janette Pinzon [facility] POCT-GLUCOSE METER 2019-09-29 06:12:00 [facility] Ce nter POCT-GLUCOSE METER 2019-09-28 20:51:00 [facility], [facility] Medical Ce nter COMPREHENSIVE METABOLIC 2019-09-28 11:43:00 Madeleine Rojas [facility] MAGNESIUM 2019-09-28 11:43:00 Madeleine Rojas [facility] CBC W/PLT COUNT & AUTO 2019-09-28 11:43:00 Madeleine Rojas [facility] POCT-GLUCOSE METER 2019-09-28 06:17:00 [facility] Medical Ce nter POCT-GLUCOSE METER 2019-09-27 06:28:00 [facility], [facility] Ce nter POCT-GLUCOSE METER 2019-09-26 21:23:00 [facility], [facility] Medical Ce nter POCT-GLUCOSE METER 2019-09-26 16:32:00 [facility], [facility] - [facility] POCT-GLUCOSE METER 2019-09-26 11:37:00 [facility], [facility] - [facility]ter POCT-GLUCOSE METER 2019-09-26 07:03:00 [facility], [facility] - [facility]ter POCT-GLUCOSE METER 2019-09-25 23:09:00 [facility], [facility] - [facility] Ce [facility]ter POCT-GLUCOSE METER 2019-09-25 15:59:00 [facility], [facility] - [facility] Ce [facility]ter POCT-GLUCOSE METER 2019-09-25 10:48:00 [facility], [facility] - [facility] Ce [facility]ter POCT-GLUCOSE METER 2019-09-25 06:11:00 [facility], [facility] - [facility] Ce [facility]ter POCT-GLUCOSE METER 2019-09-24 20:28:00 [facility], [facility] - [facility] Ce [facility]ter POCT-GLUCOSE METER 2019-09-24 17:16:00 [facility], [facility] - [facility] Ce [facility]ter POCT-GLUCOSE METER 2019-09-24 12:05:00 [facility], [facility] - [facility] Ce nter XR CHEST 1 VIEW 2019-09-24 09:11:00 Janette Pinzon [facility] XR ABDOMEN / KUB 1 VIEW 2019-09-24 09:11:00 Janette Pinzon [facility] POCT-GLUCOSE METER 2019-09-24 06:09:00 [facility], [facility] - [facility] Ce nter POCT-GLUCOSE METER 2019-09-23 20:12:00 [facility], [facility] - [facility] Ce [facility]ter POCT-GLUCOSE METER 2019-09-23 16:07:00 [facility], [facility] - [facility] POCT-GLUCOSE METER 2019-09-23 11:29:00 [facility], [facility] - [facility]ter POCT-GLUCOSE METER 2019-09-23 05:53:00 [facility], [facility] - [facility]ter POCT-GLUCOSE METER 2019-09-22 20:03:00 [facility], [facility] - [facility]ter POCT-GLUCOSE METER 2019-09-22 16:24:00 [facility], [facility] - [facility]ter POCT-GLUCOSE METER 2019-09-22 12:07:00 [facility], [facility] - [facility] POCT-GLUCOSE METER 2019-09-22 06:41:00 [facility], [facility] - ieoghene [facility] Ce nter VITAMIN B12 AND FOLATE 2019-09-22 04:39:00 Janette Pinzon I [facility] TSH/FREE T4 IF INDICATED 2019-09-22 04:39:00 Janette Pinzon [facility] POCT-GLUCOSE METER 2019-09-21 20:48:00 [facility], [facility] - [facility]ter POCT-GLUCOSE METER 2019-09-21 16:44:00 [facility], [facility] - [facility] Ce [facility]ter RHYTHM STRIP - SCAN 2019-09-21 14:20:[address] [facility] POCT-GLUCOSE METER 2019-09-21 11:59:00 [facility], [facility] - [facility] Medical Ce nter POCT-GLUCOSE METER 2019-09-21 05:54:00 [facility], [facility] St [facility] - [facility] Ce [facility]ter PHOSPHORUS 2019-09-21 04:09:00 Heather Meredith [facility] COMPREHENSIVE METABOLIC 2019-09-21 04:09:00 [facility], [facility] - PANEL [facility] Medical Ce nter CBC W/PLT COUNT & AUTO 2019-09-21 04:09:00 [facility], [facility] S [facility] - DIFFERENTIAL [facility] Ce nter POCT-GLUCOSE METER 2019-09-20 20:36:00 [facility], [facility] - [place] Medical Ce nter POCT-GLUCOSE METER 2019-09-20 16:28:00 [facility], [facility] St Marci kes - [place] Medical Ce nter POCT-GLUCOSE METER 2019-09-20 11:33:00 [facility], [facility] St [facility]ci kes - [place] Medical Ce nter POCT-GLUCOSE METER 2019-09-20 06:02:00 [facility], [facility] St Marci kes - [place] Medical Ce nter PHOSPHORUS 2019-09-20 04:43:00 Heather Meredith [facility] POCT-GLUCOSE METER 2019-09-19 20:27:00 [facility], [facility] Marci kes - [place] [facility] Medical Ce nter POCT-GLUCOSE METER 2019-09-19 16:48:00 [facility], [facility] Marci kes - Uvie[facility] Medical Ce nter POCT-GLUCOSE METER 2019-09-19 12:01:00 [facility], [facility]ci kes - [place] Medical Ce nter POCT-GLUCOSE METER 2019-09-19 06:22:00 [facility], [facility] Ce nter PHOSPHORUS 2019-09-19 04:32:00 Heather Meredith [facility] COMPREHENSIVE METABOLIC 2019-09-19 04:32:00 [facility] - PANEL [facility] Ce nter MAGNESIUM 2019-09-19 04:32:00 [facility], [facility] Ce nter CBC W/PLT COUNT & AUTO 2019-09-19 04:32:00 [facility], [facility] S t [facility] - DIFFERENTIAL [facility] Ce nter TRANSFUSE LEUKO-REDUCED 2019-09-18 21:24:35 Barney Linares [facility] RED BLOOD CELLS [facility] POCT-GLUCOSE METER 2019-09-18 20:40:00 [facility], [facility] Ce nter POCT-GLUCOSE METER 2019-09-18 18:00:00 [facility], [facility] Ce nter POCT-GLUCOSE METER 2019-09-18 14:17:00 [facility] PHARNYX 2019-09-18 14:00:00 Heather Meredith [facility] - AND/OR CERVICAL Medical Center XR ESOPH SWALLOW FUNCTION 2019-09-18 12:51:00 Heather Meredith [facility] - W/CINE VIDEO [facility] Center POCT-GLUCOSE METER 2019-09-18 07:54:00 Heather Meredith [facility] MAGNESIUM 2019-09-18 06:07:00 AliSylvia orantes Mindy [facility] PHOSPHORUS 2019-09-18 06:07:00 AliSylvia orantes Mindy [facility] BASIC METABOLIC PANEL (7) 2019-09-18 06:07:00 Heather Meredith [facility] CBC W/PLT COUNT & AUTO 2019-09-18 06:07:00 Masoud, [facility] XR CHEST 1 VIEW 2019-09-18 04:39:00 Sylvia Trejo [facility] PORTABLE/BEDSIDE [facility] POCT-GLUCOSE METER 2019-09-17 21:39:00 Masoud [facility] TRANSFUSION SERVICE 2019-09-17 17:50:47 Provider, Default [facility] REPORT - SCAN Scanning [facility] POCT-GLUCOSE METER 2019-09-17 17:22:00 Masoud [facility] URINALYSIS W/ REFLEX 2019-09-17 17:04:00 [facility] URINE CULTURE [facility] POCT-GLUCOSE METER 2019-09-17 12:36:00 Masoud [facility] POCT-GLUCOSE METER 2019-09-17 08:18:00 Masoud [facility] XR CHEST 1 VIEW 2019-09-17 06:45:00 Sylvia Trejo [facility] PORTABLE/BEDSIDE [facility] MAGNESIUM 2019-09-17 05:38:00 [facility]OS[facility]US 2019-09-17 05:38:00 Sylvia Trejo [facility] BASIC METABOLIC PANEL (7) 2019-09-17 05:38:00 Masoud [facility] CBC W/PLT COUNT & AUTO 2019-09-17 05:38:00 [facility] PRE[facility]ARE LEUKO-REDUCED RBC 2019-09-16 23:54:00 MayaHavenSylviaderrek Hurtado ma [facility] POCT-GLUCOSE METER 2019-09-16 20:55:00 Masoud [facility]SF[facility]ION SERVICE 2019-09-16 18:12:40 Provider, [facility] SCAN [facility] US GUIDE, VASCULAR ACCESS 2019-09-16 16:48:31 Sylvia Trejo ma [facility] POCT-GLUCOSE METER 2019-09-16 12:27:00 Heather Meredith [facility] XR CHEST 1 VIEW 2019-09-16 09:01:00 MayaHavenSylviaderrek Guillen [facility] PORTABLE/BEDSIDE Medical Center ECG 12-LEAD 2019-09-16 04:31:27 Sekou Wagner [facility] BASIC METABOLIC PANEL (7) 2019-09-16 03:37:00 Sekou Wagner rdo [facility] MAGNESIUM 2019-09-16 03:37:00 Sekou Wagner [facility] PHOSPHORUS 2019-09-16 03:37:00 Sekou Wagner Zhao [facility] CBC (HEMOGRAM ONLY) 2019-09-16 03:37:00 Sekou Wagner [facility] I [facility] PT/APTT 2019-09-16 03:37:00 [facility] CALCIUM, IONIZED 2019-09-16 03:36:00 Abi Colón [facility] PREPARE RBC 2019-09-15 23:54:00 Mihir [place] [facility] POCT-GLUCOSE METER 2019-09-15 22:31:00 Heather Meredith [facility] TRANSFUSION SERVICE 2019-09-15 18:52:58 Louies Jorgensen [facility] REPORT - SCAN [facility] POCT-GLUCOSE METER 2019-09-15 18:15:00 Heather Meredith Geoffrey [facility] TRANSFUSE LEUKO-REDUCED 2019-09-15 18:05:28 Sylvia Trejo [facility] RED BLOOD CELLS [facility] CBC (HEMOGRAM ONLY) 2019-09-15 12:10:00 Dion Ken [facility] POCT-GLUCOSE METER 2019-09-15 12:09:00 Heather Meredith [facility] POCT-GLUCOSE METER 2019-09-15 08:14:00 Masoud [facility] POCT-GLUCOSE METER 2019-09-15 05:59:00 Heather Meredith [facility] POCT-GLUCOSE METER 2019-09-15 05:11:00 Heather Meredith [facility] ECG 12-LEAD 2019-09-15 04:16:47 Unknown, Hl7 Doctor [facility] BASIC METABOLIC PANEL (7) 2019-09-15 03:36:00 Sekou Wagner [facility] MAGNESIUM 2019-09-15 03:36:00 Sekou Wagner [facility] PHOSPHORUS 2019-09-15 03:36:00 Sekou Wagner [facility] CBC (HEMOGRAM ONLY) 2019-09-15 03:36:00 Sekou Wagner [facility] I [facility] BLOOD GAS, ARTERIAL 2019-09-15 03:36:00 Dion Ken [facility] CALCIUM, IONIZED 2019-09-15 03:36:00 Abi Colón [facility] LACTIC ACID, ARTERIAL 2019-09-15 03:36:00 [facility] SAT[facility], 2019-09-15 03:36:00 Abi Colón [facility] PT/APTT 2019-09-15 03:35:00 Abi Colón [facility] POCT-GLUCOSE METER 2019-09-15 03:35:00 Heather Meredith [facility] POCT-GLUCOSE METER 2019-09-15 01:42:00 Masoud Heather [facility] XR CHEST 1 VIEW 2019-09-15 01:35:00 Sekou Wagner [facility]/BEDSIDE [facility] POCT-GLUCOSE METER 2019-09-15 00:10:00 Masoud [facility] POCT-GLUCOSE METER 2019-09-14 23:07:00 Masoud Heather [facility] POCT-GLUCOSE METER 2019-09-14 22:05:00 Masoud Heather [facility] POCT-GLUCOSE METER 2019-09-14 21:11:00 Masoud, [facility] BLOOD GAS, ARTERIAL 2019-09-14 21:02:00 Jesus Manuel [facility] CBC (HEMOGRAM ONLY) 2019-09-14 21:02:00 [facility] 2019-09-14 21:02:00 [facility] BASIC METABOLIC PANEL (7) 2019-09-14 21:02:[address] [facility] MAGNESIUM 2019-09-14 21:02:00 [facility] PHOSPHORUS 2019-09-14 21:02:00 Katarzyna [facility] CALCIUM, IONIZED 2019-09-14 21:02:00 Katarzyna Abi [facility] OXYGEN SATURATION, 2019-09-14 21:02:00 Ginnazeynepmaheshrigo [facility] LACTIC ACID, ARTERIAL 2019-09-14 21:02:00 Katarzyna Abi [facility] BLOOD GAS, ARTERIAL 2019-09-14 18:51:00 Jesus Manuel [facility] HGB/HCT (H&H) - STAT LAB 2019-09-14 18:51:00 Jesus Manuel [facility] LACTIC ACID, ARTERIAL 2019-09-14 18:51:00 Jesus Manuel [facility] POCT-GLUCOSE METER 2019-09-14 18:50:00 Masoud [facility] POCT-GLUCOSE METER 2019-09-14 18:11[facility] 2019-09-14 17:50:17 Provider, [facility] SCAN Scanning [facility] XR CHEST 1 VIEW 2019-09-14 17:42:00 Sylvia Trejo [facility] PORTABLE/BEDSIDE [facility] BRONCHIAL CULTURE + GRAM 2019-09-14 17:37:00 Sylvia Trejo a [facility] XR CHEST 1 VIEW 2019-09-14 15:31:00 Sekou Wganer [facility] PORTABLE/BEDSIDE [facility] MAGNESIUM 2019-09-14 15:31:00 Sylvia Trejo [facility] PHOSPHORUS 2019-09-14 15:31:00 Sylvia Trejo [facility] CALCIUM, IONIZED 2019-09-14 15:31:00 Maya Sylviaderrek Guillen [facility] LACTIC ACID, ARTERIAL 2019-09-14 15:31:00 Sylvia Trejo C HI [facility] PROTHROMBIN TIME/INR 2019-09-14 15:31:00 Sylvia Trejo CH I [facility] FIBRINOGEN 2019-09-14 15:31:00 Sylvia Trejo [facility] OXYGEN SATURATION, 2019-09-14 15:31:00 [facility] PT/APTT 2019-09-14 15:31:[address] [facility] GLUCOSE 2019-09-14 15:31:00 [facility] 2019-09-14 15:31:00 Sylvia Trejo [facility] BASIC METABOLIC PANEL (7) 2019-09-14 15:31:00 Heather Meredith [facility] CBC W/PLT COUNT & AUTO 2019-09-14 15:31:00 [facility]LOOD [facility], ARTERIAL 2019-09-14 15:30:00 [facility] NA-STAT LAB 2019-09-14 15:30:00 [facility] POTASSIUM-STAT LAB 2019-09-14 15:30:00 Jesus Manuel [facility] GLUCOSE-STAT LAB 2019-09-14 15:30:00 Jesus Manuel [facility] HGB/HCT (H&H) - STAT LAB 2019-09-14 15:30:00 Jesus Manuel [facility] ECG 12-LEAD 2019-09-14 15:22:15 Sekou Wagner [facility] BLOOD GAS, ARTERIAL 2019-09-14 13:57:19 Barney Linares [facility] SODIUM NA-STAT LAB 2019-09-14 13:57:19 Barney Linares [facility] POTASSIUM-STAT LAB 2019-09-14 13:57:19 Barney Linares [facility] GLUCOSE-STAT LAB 2019-09-14 13:57:19 Barney Linares [facility] HGB/HCT (H&H) - STAT LAB 2019-09-14 13:57:19 Barney Linares to [facility] POCT-ACT 2019-09-14 13:41:00 Heather Meredith [facility] BLOOD GAS, ARTERIAL 2019-09-14 13:36:11 Barney Linares [facility] SODIUM NA-STAT LAB 2019-09-14 13:36:11 Barney Linares [facility] POTASSIUM-STAT LAB 2019-09-14 13:36:11 Barney Linares [facility] GLUCOSE-STAT LAB 2019-09-14 13:36:11 Barney Linares [facility] HGB/HCT (H&H) - STAT LAB 2019-09-14 13:36:11 Barney Lianres Perfec to [facility] TRANSFUSE LEUKO-REDUCED 2019-09-14 13:27:14 Barney Linares [facility] RED BLOOD CELLS [facility] BLOOD GAS, ARTERIAL 2019-09-14 13:00:16 Mihir [place] [facility] SODIUM NA-STAT LAB 2019-09-14 13:00:16 Mihir [place] [facility] POTASSIUM-STAT LAB 2019-09-14 13:00:16 Mihir [place] [facility] GLUCOSE-STAT LAB 2019-09-14 13:00:16 Mihir [place] [facility] HGB/HCT (H&H) - STAT LAB 2019-09-14 13:00:16 Mihir [place] [facility] POCT-ACT 2019-09-14 12:48:00 Heather Meredith [facility] BLOOD GAS, ARTERIAL 2019-09-14 12:45:18 Mihir [place] [facility] SODIUM NA-STAT LAB 2019-09-14 12:45:18 Mihir [place] [facility] POTASSIUM-STAT LAB 2019-09-14 12:45:18 Mihir [place] [facility] GLUCOSE-STAT LAB 2019-09-14 12:45:18 Nan [facility] HGB/HCT (H&H) - STAT LAB 2019-09-14 12:45:18 Mihir [place] [facility] POCT-ACT 2019-09-14 12:25:00 MasoudHeather [facility] POCT-ACT 2019-09-14 12:13:00 MasoudHeather [facility] BLOOD GAS, ARTERIAL 2019-09-14 11:06:39 Barney Linares [facility] SODIUM NA-STAT LAB 2019-09-14 11:06:39 Braney Linares [facility] POTASSIUM-STAT LAB 2019-09-14 11:06:39 Barney Linares [facility] GLUCOSE-STAT LAB 2019-09-14 11:06:39 Barney Linares [facility] HGB/HCT (H&H) - STAT LAB 2019-09-14 11:06:39 Barney Linares [facility] BYPASS,AORTO CORONARY 2019-09-14 10:00:00 Mihir [facility] t [facility] - ILYA/SVG [facility] ENDOSCOPIC HARVEST,VEIN 2019-09-14 10:00:00 Mihir [place] [facility] COMPREHENSIVE METABOLIC 2019-09-14 04:31:00 Fran Cooper [facility] PANEL [facility] MAGNESIUM 2019-09-14 04:31:00 Satinder Correa [facility] APTT 2019-09-14 04:31:00 Mihir [place] [facility] PHOSPHORUS 2019-09-14 04:31:00 Sekou Wagner [facility] BASIC METABOLIC PANEL (7) 2019-09-14 04:31:00 Dion Ken [facility] I [facility] CBC W/PLT COUNT & AUTO 2019-09-14 04:31:00 Satinder Correa [facility] DIFFERENTIAL [facility] SARS-COV2/RT-PCR ([facility] & 2019-09-13 16:18:00 Satinder Correa [facility] - REF LABS) [facility] 2D ECHO W/ DOPPLER 2019-09-13 13:55:18 Jaden Zayas [facility] (CW/PW/COLOR) [facility] ABORH, MANUAL 2019-09-13 05:43:00 Claire Ching [facility] PLATELET AGGREGATION: 2019-09-13 04:38:00 Satinder Correa [facility] FUNCTION SCREEN [facility] CBC W/PLT COUNT & AUTO 2019-09-13 04:38:00 Satinder Correa [facility] DIFFERENTIAL [facility] BASIC METABOLIC PANEL (7) 2019-09-13 04:37:00 Satinder Correa [facility] MAGNESIUM 2019-09-13 04:37:00 Satinder Correa [facility] HEMOGLOBIN A1C 2019-09-13 04:37:00 [facility] LIPID PANEL 2019-09-13 04:37:00 Mihir [facility] TYPE AND SCREEN, 2019-09-13 04:37:00 [facility] PROTHROMBIN TIME/INR 2019-09-13 04:36:00 Mihir [place] [facility] APTT 2019-09-13 04:36:00 Satinder Correa [facility] ECG 12-LEAD 2019-09-12 21:56:10 Unknown, Hl7 [facility] XR CHEST 1 VIEW 2019-09-12 21:06:00 Mihir [place] [facility] s - PORTABLE/BEDSIDE [facility] CAROTID DOPPLER BILATERAL 2019-09-12 19:30:00 RoberSatinder deleon brett [facility] APTT 2019-09-12 18:11:00 [facility]: 2019-09-12 12:28:00 NanMihir bhagat [facility] - FUNCTION SCREEN [facility] APTT 2019-09-12 10:53:00 Satinder Correaon [facility] TROPONIN I 2019-09-12 10:53:00 Jaden Zayas [facility] APTT 2019-09-12 03:19:00 Chana Jaden [facility] CBC (HEMOGRAM ONLY) 2019-09-12 03:19:00 Chana Jaden [facility] TROPONIN I 2019-09-12 03:19:00 Chana [facility] Results Test Description Test Time Test Comments Results Result Comments Source BRONCHIAL CULTURE + GRAM STAIN 2019-10-01 17:14:00 Test Item Value Reference Range Interpretation Comme nts CULTURE (BEAKER) PSEUDOMONAS AERUGINOSA A 4 + Pseudomonas (test code = 1095) (MUCOID-PHENOTYPE) aer uginosa (Mucoid-phenoty pe) Amikacin (test code Susceptible 0-16 S = 1) , Resistant <0 or >16 Aztreonam (test Susceptible 0-8 , S code = 32) Resistant <0 or >8 Cefepime (test code Susceptible 0-8 , S = 51) Resistant <0 or >8 Ceftazidime (test Susceptible 0-8 , S code = 27) Resistant <0 or >8 Ciprofloxacin (test Susceptible 0-0.5 S code = 7) , Resistant <0 or >.5 Gentamicin (test Susceptible 0-4 , S code = 18) Resistant <0 or >4 Levofloxacin (test Susceptible 0-1 , S code = 22) Resistant <0 or >1 Meropenem (test Susceptible 0-2 , S code = 34) Resistant <0 or >2 Piperacillin (test Susceptible 0-16 S code = 24) , Resistant <0 or >16 Piperacillin + Susceptible 0-16 R Tazobactam (test , Resistant <0 or code = 29) >16 Tobramycin (test Susceptible 0-4 , S code = 25) Resistant <0 or >4 CULTURE (BEAKER) PSEUDOMONAS AERUGINOSA A 4 + Pseudomonas (test code = 1095) aeruginos a Amikacin (test code Susceptible 0-16 S = 1) , Resistant <0 or >16 Aztreonam (test Susceptible 0-8 , R code = 32) Resistant <0 or >8 Cefepime (test code Susceptible 0-8 , S = 51) Resistant <0 or >8 Ceftazidime (test Susceptible 0-8 , S code = 27) Resistant <0 or >8 Ciprofloxacin (test Susceptible 0-0.5 S code = 7) , Resistant <0 or >.5 Gentamicin (test Susceptible 0-4 , S code = 18) Resistant <0 or >4 Levofloxacin (test Susceptible 0-1 , S code = 22) Resistant <0 or >1 Meropenem (test Susceptible 0-2 , S code = 34) Resistant <0 or >2 Piperacillin (test Susceptible 0-16 R code = 24) , Resistant <0 or >16 Piperacillin + Susceptible 0-16 R Tazobactam (test , Resistant <0 or code = 29) >16 Tobramycin (test Susceptible 0-4 , S code = 25) Resistant <0 or >4 CULTURE (BEAKER) A 1 out of 4 media (test code = 1095) Aspergill us species GRAM STAIN RESULT 2+ WBCs (BEAKER) (test code = 1123) GRAM STAIN RESULT 2+ gram negative rods (BEAKER) (test code = 535710) POC-Glucose [id number] 06:16:00 Test Item Value Reference Range Interpretation Comments POC-Glucose Meter (test 119 mg/dL 70-110 H : TE STED AT [facility] code = 1538) [address] [facility], [facility] [address]: House Nurse/Techni santana ID = [id number] for ABI RAMOS Lab Interpretation (test Abnormal code = 00733-8) [facility] [id number] 06:16:00 Test Item Value Reference Range Interpretation Comments POC-GLUCOSE METER 119 mg/dL 70-110 H : TESTED A T [facility] 7200 (BEAKER) (test code CAM[place] E [facility], = 1538) [facility] 7703 0: House Nurse/Techni santana ID = [id number] for ABI RAMOS Basic Metabolic [id number] 02:40:00 Test Item Value Reference Range Interpretation Comments Sodium (test code = 136 meq/L 185-184 9230-2) Potassium (test code = 4.3 meq/L 3.5-5.1 Speci men slightly 2823-3) hemolyzed Chloride (test code = 101 meq/L 98-107 2075-0) CO2 (test code = 28 meq/L 22-29 2028-9) BUN (test code = 20 mg/dL 7-21 3094-0) Creatinine (test code = 1.68 mg/dL 0.57-1.25 H Spec imen slightly 2160-0) hemolyzed Glucose (test code = 138 mg/dL 70-105 H 2345-7) Calcium (test code = 8.8 mg/dL 8.4-10.2 19117-1) EGFR (test code = 29 mL/min/1.73 [place] [address]-2) NOT ACCURATE CREATININE CLEARANCE IN PREDICTING GLOMERULAR FILTRATION RATE . ESTIMATED GFR I S NOT APPLICABLE FOR DIALYSIS PATIEN TS. Lab Interpretation Abnormal (test code = 10354-0) [facility]OLIC [id number] 02:40:00 Test Item Value Reference Range Interpretation Comments SODIUM (BEAKER) 136 meq/L 136-145 (test code = 381) POTASSIUM (BEAKER) 4.3 meq/L 3.5-5.1 Specimen slightly (test code = 379) hemolyzed CHLORIDE (BEAKER) 101 meq/L 98-107 (test code = 382) CO2 (BEAKER) (test 28 meq/L 22-29 code = 355) BLOOD UREA NITROGEN 20 mg/dL 7-21 (BEAKER) (test code = 354) CREATININE (BEAKER) 1.68 mg/dL 0.57-1.25 H Specimen slightly (test code = 358) hemolyzed GLUCOSE RANDOM 138 mg/dL 70-105 H (BEAKER) (test code = 652) CALCIUM (BEAKER) 8.8 mg/dL 8.4-10.2 (test code = 697) EGFR (BEAKER) (test 29 mL/min/1.73 ESTIMA GHAZAL GFR IS code = 1092) sq m NOT ACCURATE CREATININE CLEARANCE IN PREDICTING GLOMERULAR FILTRATION RATE . ESTIMATED GFR I S NOT APPLICABLE FOR DIALYSIS PATIEN TS. BASIC METABOLIC [id number] 09:47:00 Test Item Value Reference Range Interpretation Comments SODIUM (BEAKER) 136 meq/L 136-145 (test code = 381) POTASSIUM (BEAKER) 4.2 meq/L 3.5-5.1 Specimen slightly (test code = 379) hemolyzed CHLORIDE (BEAKER) 99 meq/L 98-107 (test code = 382) CO2 (BEAKER) (test 29 meq/L 22-29 code = 355) BLOOD UREA NITROGEN 24 mg/dL 7-21 H (BEAKER) (test code = 354) CREATININE (BEAKER) 1.41 mg/dL 0.57-1.25 H Specimen slightly (test code = 358) hemolyzed GLUCOSE RANDOM 230 mg/dL 70-105 H (BEAKER) (test code = 652) CALCIUM (BEAKER) 8.7 mg/dL 8.4-10.2 (test code = 697) EGFR (BEAKER) (test 36 mL/min/1.73 ESTIMA GHAZAL GFR IS code = 1092) sq m NOT ACCURATE CREATININE CLEARANCE IN PREDICTING GLOMERULAR FILTRATION RATE . ESTIMATED GFR I S NOT APPLICABLE FOR DIALYSIS PATIEN TS. POCT-GLUCOSE [id number] 06:23:00 Test Item Value Reference Range Interpretation Comments POC-GLUCOSE METER 120 mg/dL 70-110 H : TESTED A T [facility] 7200 (BEAKER) (test code CAMBSHABBIRG E BLDG A, = 1538) [place] 7703 0: House Nurse/Techni santana ID = [id number] for HAY JIMENEZ POCT-GLUCOSE [id number] 21:03:00 Test Item Value Reference Range Interpretation Comments POC-GLUCOSE METER 174 mg/dL 70-110 H : TESTED A T [facility] 7200 (BEAKER) (test code PRABHJOT STRAUSS A, = 1538) [facility] 7703 0: House Nurse/Techni santana ID = [id number] for HAY JIMENEZ Comprehensive metabolic [id number] 12:10:00 Test Item Value Reference Range Interpretation Comments Protein, Total (test 5.8 6.0- 8.3 gm/dL L code = 2885-2) Albumin (test code = 3.6 g/dL 3.5-5 37955-1) Alkaline Phosphatase 11 U/L 40-150 L (test code = 6768-6) Total Bilirubin (test 0.3 mg/dL 0.2-1.2 code = 1975-2) Sodium (test code = 135 meq/L 136-145 L 2951-2) Potassium (test code = 4.8 meq/L 3.5-5.1 2823-3) Chloride (test code = 101 meq/L 98-107 2075-0) CO2 (test code = 30 meq/L 22-29 H 2028-9) BUN (test code = 25 mg/dL 7-21 H 3094-0) Creatinine (test code = 1.40 mg/dL 0.57-1.25 H 2160-0) Glucose (test code = 152 mg/dL 70-105 H 2345-7) Calcium (test code = 9.4 mg/dL 8.4-10.2 29738-3) AST (test code = 18 U/L 5-34 1920-8) ALT (test code = 17 U/L 6-55 1742-6) EGFR (test code = 36 mL/min/1.73 [place] [address]-7) NOT ACCURATE CREATININE CLEARANCE IN PREDICTING GLOMERULAR FILTRATION RATE . ESTIMATED GFR I S NOT APPLICABLE FOR DIALYSIS PATIEN TS. Lab Interpretation Abnormal (test code = 98330-0) [facility] [id number] 12:10:00 Test Item Value Reference Range Interpretation Comments Magnesium (test code = 27635-4) 2.1 mg/dL 1.6-2.6 Lab Interpretation (test code = Normal 76813-7) [id number] 12:10:00 Test Item Value Reference Range Interpretation Comments MAGNESIUM (BEAKER) (test code = 2.1 mg/dL 1.6-2.6 627) COMPREHENSIVE METABOLIC [id number] 12:10:00 Test Item Value Reference Range Interpretation Comments TOTAL PROTEIN 5.8 gm/dL 6.0-8.3 L (BEAKER) (test code = 770) ALBUMIN (BEAKER) 3.6 g/dL 3.5-5.0 (test code = 1145) ALKALINE PHOSPHATASE 11 U/L 40-150 L (BEAKER) (test code = 346) BILIRUBIN TOTAL 0.3 mg/dL 0.2-1.2 (BEAKER) (test code = 377) SODIUM (BEAKER) (test 135 meq/L 136-145 L code = 381) POTASSIUM (BEAKER) 4.8 meq/L 3.5-5.1 (test code = 379) CHLORIDE (BEAKER) 101 meq/L 98-107 (test code = 382) CO2 (BEAKER) (test 30 meq/L 22-29 H code = 355) BLOOD UREA NITROGEN 25 mg/dL 7-21 H (BEAKER) (test code = 354) CREATININE (BEAKER) 1.40 mg/dL 0.57-1.25 H (test code = 358) GLUCOSE RANDOM 152 mg/dL 70-105 H (BEAKER) (test code = 652) CALCIUM (BEAKER) 9.4 mg/dL 8.4-10.2 (test code = 697) AST (SGOT) (BEAKER) 18 U/L 5-34 (test code = 353) ALT (SGPT) (BEAKER) 17 U/L 6-55 (test code = 347) EGFR (BEAKER) (test 36 mL/min/1.73 ESTIMA GHAZAL GFR IS code = 1092) sq m NOT ACCURATE CREATININE CLEARANCE IN PREDICTING GLOMERULAR FILTRATION RATE . ESTIMATED GFR I S NOT APPLICABLE FOR DIALYSIS PATIEN TS. CBC with platelet count + automated [id number] 12:08:00 Test Item Value Reference Range Interpretation Comments WBC (test code = 6690-2) 5.7 3.5- 10.5 K/L RBC (test code = 789-8) 2.84 3.93- 5.22 M/L L MCHC (test code = 786-4) 31.9 32.2- 35.5 GM/DL L Hematocrit (test code = 4544-3) 27.3 % 34.1-44.9 L MCV (test code = 787-2) 96.1 fL 79.4-94.8 H MCH (test code = 785-6) 30.6 pg 25.6-32.2 RDW (test code = 788-0) 15.1 % 11.7-14.4 H Platelets (test code = 777-3) 344 150- 450 K/CU MM MPV (test code = 59917-3) 9.8 fL 9-12.3 nRBC (test code = 413) 0 0- 0 /100 WBC % Neutros (test code = 429) 63 % % Lymphs (test code = 430) 19 % % Monos (test code = 431) 9 % % Eos (test code = 432) 8 % % Baso (test code = 437) 1 % # Neutros (test code = 670) # Lymphs (test code = 414) # Monos (test code = 415) # Eos (test code = 416) # Baso (test code = 417) Immature Granulocytes-Relative 0 % 0-1 (test code = 2801) Lab Interpretation (test code = Abnormal 89206-1) [facility] W/PLT COUNT & AUTO [id number] 12:08:00 Test Item Value Reference Range Interpretation Comments WHITE BLOOD CELL COUNT (BEAKER) 5.7 K/ L 3.5-10.5 (test code = 775) RED BLOOD CELL COUNT (BEAKER) 2.84 M/ L 3.93-5.22 L (test code = 761) HEMOGLOBIN (BEAKER) (test code = 8.7 GM/DL 11.2-15.7 L 410) HEMATOCRIT (BEAKER) (test code = 27.3 % 34.1-44.9 L 411) MEAN CORPUSCULAR VOLUME (BEAKER) 96.1 fL 79.4-94.8 H (test code = 753) MEAN CORPUSCULAR HEMOGLOBIN 30.6 pg 25.6-32.2 (BEAKER) (test code = 751) MEAN CORPUSCULAR HEMOGLOBIN CONC 31.9 GM/DL 32.2-35.5 L (BEAKER) (test code = 752) RED CELL DISTRIBUTION WIDTH 15.1 % 11.7-14.4 H (BEAKER) (test code = 412) PLATELET COUNT (BEAKER) (test 344 K/CU MM 150-450 code = 756) MEAN PLATELET VOLUME (BEAKER) 9.8 fL 9.0-12.3 (test code = 754) NUCLEATED RED BLOOD CELLS 0 /100 WBC 0-0 (BEAKER) (test code = 413) NEUTROPHILS RELATIVE PERCENT 63 % (BEAKER) (test code = 429) LYMPHOCYTES RELATIVE PERCENT 19 % (BEAKER) (test code = 430) MONOCYTES RELATIVE PERCENT 9 % (BEAKER) (test code = 431) EOSINOPHILS RELATIVE PERCENT 8 % (BEAKER) (test code = 432) BASOPHILS RELATIVE PERCENT 1 % (BEAKER) (test code = 437) NEUTROPHILS ABSOLUTE COUNT (BEAKER) (test code = 670) LYMPHOCYTES ABSOLUTE COUNT (BEAKER) (test code = 414) MONOCYTES ABSOLUTE COUNT (BEAKER) (test code = 415) EOSINOPHILS ABSOLUTE COUNT (BEAKER) (test code = 416) BASOPHILS ABSOLUTE COUNT (BEAKER) (test code = 417) IMMATURE GRANULOCYTES-RELATIVE 0 % 0-1 PERCENT (BEAKER) (test code = 2801) POCT-GLUCOSE [id number] 06:28:00 Test Item Value Reference Range Interpretation Comments POC-GLUCOSE METER 128 mg/dL 70-110 H : TESTED A T [facility] 7200 (BEAKER) (test code PRABHJOT Dickens BLDG A, = 1538) [place] [address] 0: House Nurse/Techni santana ID = [id number] for WICHOTIARA CAGLE POCT-GLUCOSE [id number] 06:39:00 Test Item Value Reference Range Interpretation Comments POC-GLUCOSE METER 116 mg/dL 70-110 H : TESTED A T [facility]200 (BEAKER) (test code CAMBRIDG Chrissie BLDG A, = 1538) [place] [address] 0: House Nurse/Techni santana ID = [id number] for WICHO ROBBIETIARA Ambrosio POCT-GLUCOSE [id number] 21:34:00 Test Item Value Reference Range Interpretation Comments POC-GLUCOSE METER 145 mg/dL 70-110 H : TESTED A T [facility]200 (BEAKER) (test code CAMBRIDG E BLDG A, = 1538) [place] [address] 0: House Nurse/Techni santana ID = [id number] for TIARA PIERRE POCT-GLUCOSE [id number] 16:44:00 Test Item Value Reference Range Interpretation Comments POC-GLUCOSE METER 150 mg/dL 70-110 H : TESTED A T [facility]200 (BEAKER) (test code CAMBRIDG E BLDG A, = 1538) [place] [address] 0: House Nurse/Techni santana ID = [id number] for JONNIE QUINTERO POCT-GLUCOSE [id number] 11:48:00 Test Item Value Reference Range Interpretation Comments POC-GLUCOSE METER 133 mg/dL 70-110 H : TESTED A T [facility]200 (BEAKER) (test code CAMBRIDG E BLDG A, = 1538) [place] [address] 0: House Nurse/Techni santana ID = [id number] for JONNIE QUINTERO POCT-GLUCOSE [id number] 07:14:00 Test Item Value Reference Range Interpretation Comments POC-GLUCOSE METER 118 mg/dL 70-110 H : TESTED A T [facility] (BEAKER) (test code CAMBRIDG E BLDG A, = 1538) [place] [address] 0: House Nurse/Techni santana ID = [id number] for TIARA PIERRE POCT-GLUCOSE [id number] 23:21:00 Test Item Value Reference Range Interpretation Comments POC-GLUCOSE METER 214 mg/dL 70-110 H : TESTED A T [facility] (BEAKER) (test code CAMBRIDG E BLDG A, = 1538) [place] [address] 0: House Nurse/Techni santana ID = [id number] for TIARA PIERRE POCT-GLUCOSE [id number] 16:15:00 Test Item Value Reference Range Interpretation Comments POC-GLUCOSE METER 169 mg/dL 70-110 H : TESTED A T [facility] (BEAKER) (test code CAMBRIDG E BLDG A, = 1538) [place] [address] 0: House Nurse/Techni santana ID = [id number] for OMTANMAY WHITEIETA POCT-GLUCOSE [id number] 11:21:00 Test Item Value Reference Range Interpretation Comments POC-GLUCOSE METER 164 mg/dL 70-110 H : TESTED A T [facility] (BEAKER) (test code CAMBRIDG E BLDG A, = 1538) [place] [address] 0: House Nurse/Techni santana ID = [id number] for OMIW ANGELATANMAYIETA POCT-GLUCOSE [id number] 06:46:00 Test Item Value Reference Range Interpretation Comments POC-GLUCOSE METER 119 mg/dL 70-110 H : TESTED A T [facility] (BEAKER) (test code CAMBRIDG E BLDG A, = 1538) [place] [address] 0: House Nurse/Techni santana ID = [id number] for NICA , HAY POCT-GLUCOSE [id number] 20:54:00 Test Item Value Reference Range Interpretation Comments POC-GLUCOSE METER 174 mg/dL 70-110 H : TESTED A T [facility] (BEAKER) (test code CAMBRIDG E BLDG A, = 1538) [place] [address] 0: House Nurse/Techni santana ID = [id number] for NICA , HAY POCT-GLUCOSE [id number] 17:47:00 Test Item Value Reference Range Interpretation Comments POC-GLUCOSE METER 111 mg/dL 70-110 H : TESTED A T [facility] (BEAKER) (test code CAMBRIDG E BLDG A, = 1538) [place] [address] 0: House Nurse/Techni santana ID = [id number] for OMIW ANGELA, SYRIETA RAD, ABDOMEN/KUB, 1 VIEW [id number] 14:15:00Reason for exam:->constipation, abdominal painShould this be performed at the bedside?->YesFINAL REPORT EXAM: Abdomen one ViewsINDICATION: constipation, abdominal painCOMPARISON: None FINDINGS:Mild amount of stool in the colon.No dilated loops of small bowel. Retained oral contrast in multiple diverticula throughout the left colon. Right upper quadrant 7 mm calcification may reflect additional calcified diverticula. No renal calculi. No abnormal soft tissue masses. Advanced degenerative changes in the lumbar spine and pelvis. Right upper quadrant cholecystectomy surgical clips. IMPRESSION:1.Diffuse diverticulosis throughout the left colon and possible right upper quadrant.2.Mild amount of retained stool throughout the colon without bowel dilatation. Signed: Leigh Almodovar MDRwillianort Verified Date/Time: 09/24/2019 14:15:34 Reading Location: [facility] Reading Room [address] [place] [address] XR abdomen / KUB 1 [id number] 14:15:00Interface, External Ris In - 09/24/2019 2:17 PM CDTFINAL REPORT EXAM: Abdomen one ViewsINDICATION: constipation, abdominal painCOMPARISON: None FINDINGS:Mild amount of stool in the colon.No dilated loops of small bowel. Retained oral contrast in multiple diverticula throughout the left colon. Right upper quadrant 7 mm calcification may reflect additional calcified diverticula. No renal calculi. No abnormal soft tissue masses. Advanced degenerative changes in the lumbar spine and pelvis. Right upper quadrant cholecystectomy surgical clips. IMPRESSION:1.Diffuse diverticulosis throughout the left colon and possible right upper quadrant.2.Mild amount of retained stool throughout the colon without bowel dilatation. Signed: Leigh Almodovarort Verified Date/Time: 09/24/2019 14:15:34 Reading Location: [facility] Reading Room [address] [place] [address] [facility], 1 VIEW, NON [id number] 13:22:00Reason for exam:->h/o CABG, f/u venous congestion and pleural effusionShould this be performed atthe bedside?->YesFINAL REPORT EXAM: PA view of the chest. COMPARISON: 09/18/2019 CLINICAL HISTORY: h/o CABG, f/u venous congestion and pleural effusion FINDINGS: Lines/tubes: Right and left IJ hemodialysis catheters have been removed. Lungs: Mild worsening bilateral interstitial edema. Subsegmental atelectasis in both lung bases, increased. Pleura: Small bilateral pleural effusions, left greater than right. No pneumothorax. Heart and mediastinum: Moderate enlargement of the cardiac silhouette, increased since preoperative exam. Atherosclerotic calcifications of the aortic arch. Bones and soft tissues: Interval CABG with intact median sternotomy wires. IMPRESSION: Status post CABG with mild increase in size of the cardiac silhouette which may relate to worsening heart failure or superimposed pericardial effusion. Correlate with echocardiogram. Mild bilateral interstitial edema and small bilateral pleural effusions. Signed: Leigh Almodovar MDReport Verified Date/Time: 09/24/2019 13:22:42 Reading Location: [facility] Reading Room [address] [place], [place] [address]Electronically signedby: LEIGH CARBAJAL M.D. on 09/24/2019 01:22 PMXR chest 1 view portable / [id number] 13:22:00Interface, External Ris In - 09/24/2019 1:24 PM CDTFINAL REPORT EXAM: PA view of the chest. COMPARISON: 09/18/2019 CLINICAL HISTORY: h/o CABG, f/u venous congestion and pleural effusion FINDINGS: Lines/tubes: Right and left IJ hemodialysis catheters have been removed. Lungs: Mild worsening bilateral interstitial edema. Subsegmental atelectasis in both lung bases, increased. Pleura: Small bilateral pleural effusions, left greater than right. No pneumothorax. Heart and mediastinum: Moderate enlargement of the cardiac silhouette, increased since preoperative exam. Atherosclerotic calcifications of the aortic arch. Bones and soft tissues: Interval CABG with intact median sternotomy wires. IMPRESSION: Status post CABG with mild increase in size of the cardiacsilhouette which may relate to worsening heart failure or superimposed pericardial effusion. Correlat e with echocardiogram. Mild bilateral interstitial edema and small bilateral pleural effusions. Signed: Leigh Almodovar MDReport Verified Date/Time: 09/24/2019 13:22:42 Reading Location: [facility] Reading Room 3 B31.625 [facility] DiegoPOCT-GL[facility] [id number] 12:17:00 Test Item Value Reference Range Interpretation Comments POC-GLUCOSE METER 193 mg/dL 70-110 H : TESTED A T [facility] 7200 (Intuitive User [employer]) (test code CAMBSHABBIRG E BLDG A, = 1538) [place] [address] 0: House Nurse/Techni santana ID = [id number] for ZAIN FLOWER POCT-GLUCOSE [id number] 06:22:00 Test Item Value Reference Range Interpretation Comments POC-GLUCOSE METER 130 mg/dL 70-110 H : TESTED A T [facility] (BEAKER) (test code CAMBRIDG E BLDG A, = 1538) [place] [address] 0: House Nurse/Techni santana ID = [id number] for RICHARD , ABI POCT-GLUCOSE [id number] 20:43:00 Test Item Value Reference Range Interpretation Comments POC-GLUCOSE METER 196 mg/dL 70-110 H : TESTED A T [facility] (BEAKER) (test code CAMBRIDG E BLDG A, = 1538) [place] [address] 0: House Nurse/Techni santana ID = [id number] for RICHARD , ABI POCT-GLUCOSE [id number] 17:05:00 Test Item Value Reference Range Interpretation Comments POC-GLUCOSE METER 163 mg/dL 70-110 H : TESTED A T [facility] (BEAKER) (test code CAMBRIDG E BLDG A, = 1538) [place] [address] 0: House Nurse/Techni santana ID = [id number] for NWAJ IAKU, JACKY POCT-GLUCOSE [id number] 12:02:00 Test Item Value Reference Range Interpretation Comments POC-GLUCOSE METER 204 mg/dL 70-110 H : TESTED A T [facility] (BEAKER) (test code CAMBRIDG E BLDG A, = 1538) [place] [address] 0: House Nurse/Techni santana ID = [id number] for NWAJ IAKU, JACKY POCT-GLUCOSE [id number] 06:22:00 Test Item Value Reference Range Interpretation Comments POC-GLUCOSE METER 127 mg/dL 70-110 H : TESTED A T [facility] (BEAKER) (test code CAMBRIDG E BLDG A, = 1538) [place] [address] 0: House Nurse/Techni santana ID = [id number] for RICHARD , ABI POCT-GLUCOSE [id number] 20:36:00 Test Item Value Reference Range Interpretation Comments POC-GLUCOSE METER 236 mg/dL 70-110 H : TESTED A T [facility] (BEAKER) (test code CAMBRIDG E BLDG A, = 1538) [place] [address] 0: House Nurse/Techni santana ID = [id number] for ABI RAMOS POCT-GLUCOSE [id number] 16:53:00 Test Item Value Reference Range Interpretation Comments POC-GLUCOSE METER 205 mg/dL 70-110 H : TESTED A T [facility] (BEAKER) (test code CAMBRIDG E BLDG A, = 1538) [place] [address] 0: House Nurse/Techni santana ID = [id number] for JONNIE QUINTERO POCT-GLUCOSE [id number] 12:20:00 Test Item Value Reference Range Interpretation Comments POC-GLUCOSE METER 201 mg/dL 70-110 H : TESTED A T [facility] (BEAKER) (test code CAMBRIDG E BLDG A, = 1538) [place] [address] 0: House Nurse/Techni santana ID = [id number] for JONNIE QUINTERO POCT-GLUCOSE [id number] 07:11:00 Test Item Value Reference Range Interpretation Comments POC-GLUCOSE METER 134 mg/dL 70-110 H : TESTED A T [facility] (BEAKER) (test code CAMBRIDG E BLDG A, = 1538) [place] [address] 0: House Nurse/Techni santana ID = [id number] for WICHO AVALOS TIARA Vitamin B12 and [id number] 06:31:00 Test Item Value Reference Range Interpretation Comments Vitamin B12 (test code = 2132-9) 856 pg/mL 211-911 Folate (test code = 2284-8) 12.43 ng/mL >=5.40 Lab Interpretation (test code = Normal 15138-1) [facility] Center[facility]IT[facility] B[facility] AND [id number] 06:31:00 Test Item Value Reference Range Interpretation Comments VITAMIN B12 (BEAKER) (test code = 856 pg/mL 211-911 774) FOLATE (BEAKER) (test code = 362) 12.43 ng/mL >=5.40 TSH/Free T4 If [id number] 05:57:00 Test Item Value Reference Range Interpretation Comments TSH (test code = 61986-8) 1.234 0.350- 5.500 uIU/mL Lab Interpretation (test code = Normal 05503-2) [facility] CenterT[facility]/FREE T4 IF [id number] 05:57:00 Test Item Value Reference Range Interpretation Comments THYROID STIMULATING HORMONE 1.234 uIU/mL 0.350-5.500 (BEAKER) (test code = 772) POCT-GLUCOSE [id number] 20:59:00 Test Item Value Reference Range Interpretation Comments POC-GLUCOSE METER 225 mg/dL 70-110 H : TESTED A T [facility] (BEAKER) (test code CAMBRIDG E BLDG A, = 1538) [place] [address] 0: House Nurse/Techni santana ID = [id number] for TIARA PIERRE POCT-GLUCOSE [id number] 16:55:00 Test Item Value Reference Range Interpretation Comments POC-GLUCOSE METER 198 mg/dL 70-110 H : TESTED A T [facility] (BEAKER) (test code CAMBRIDG E BLDG A, = 1538) [place] [address] 0: House Nurse/Techni santana ID = [id number] for AMIE ANO, JUCEL ADAM POCT-GLUCOSE [id number] 12:12:00 Test Item Value Reference Range Interpretation Comments POC-GLUCOSE METER 254 mg/dL 70-110 H : TESTED A T [facility] (BEAKER) (test code CAMBRIDG E BLDG A, = 1538) [place] [address] 0: House Nurse/Techni santana ID = [id number] for AMIE ANO, JUCEL ADAM POCT-GLUCOSE [id number] 06:08:00 Test Item Value Reference Range Interpretation Comments POC-GLUCOSE METER 132 mg/dL 70-110 H : TESTED A T [facility] (BEAKER) (test code CAMBRIDG E BLDG A, = 1538) [place] [address] 0: House Nurse/Techni santana ID = [id number] for Carolyn sirena [place] [id number] 05:52:00 Test Item Value Reference Range Interpretation Comments Phosphorus (test code = 2777-1) 3.3 mg/dL 2.3-4.7 Lab Interpretation (test code = Normal 22379-0) [facility] CenterCOMPREHENSIVE METABOLIC [id number] 05:52:00 Test Item Value Reference Range Interpretation Comments TOTAL PROTEIN 4.8 gm/dL 6.0-8.3 L (BEAKER) (test code = 770) ALBUMIN (BEAKER) 2.9 g/dL 3.5-5.0 L (test code = 1145) ALKALINE PHOSPHATASE < U/L 40-150 L (BEAKER) (test code = 346) BILIRUBIN TOTAL 0.5 mg/dL 0.2-1.2 (BEAKER) (test code = 377) SODIUM (BEAKER) (test 141 meq/L 136-145 code = 381) POTASSIUM (BEAKER) 4.0 meq/L 3.5-5.1 (test code = 379) CHLORIDE (BEAKER) 106 meq/L 98-107 (test code = 382) CO2 (BEAKER) (test 29 meq/L 22-29 code = 355) BLOOD UREA NITROGEN 17 mg/dL 7-21 (BEAKER) (test code = 354) CREATININE (BEAKER) 1.02 mg/dL 0.57-1.25 (test code = 358) GLUCOSE RANDOM 119 mg/dL 70-105 H (BEAKER) (test code = 652) CALCIUM (BEAKER) 7.9 mg/dL 8.4-10.2 L (test code = 697) AST (SGOT) (BEAKER) 15 U/L 5-34 (test code = 353) ALT (SGPT) (BEAKER) 11 U/L 6-55 (test code = 347) EGFR (BEAKER) (test 52 mL/min/1.73 ESTIMA GHAZAL GFR IS code = 1092) sq m NOT ACCURATE CREATININE CLEARANCE IN PREDICTING GLOMERULAR FILTRATION RATE . ESTIMATED GFR I S NOT APPLICABLE FOR DIALYSIS PATIEN TS. [id number] 05:52:00 Test Item Value Reference Range Interpretation Comments PHOSPHORUS (BEAKER) (test code = 3.3 mg/dL 2.3-4.7 604) CBC W/PLT COUNT & AUTO [id number] 05:36:00 Test Item Value Reference Range Interpretation Comments WHITE BLOOD CELL COUNT (BEAKER) 5.5 K/ L 3.5-10.5 (test code = 775) RED BLOOD CELL COUNT (BEAKER) 2.63 M/ L 3.93-5.22 L (test code = 761) HEMOGLOBIN (BEAKER) (test code = 8.0 GM/DL 11.2-15.7 L 410) HEMATOCRIT (BEAKER) (test code = 24.9 % 34.1-44.9 L 411) MEAN CORPUSCULAR VOLUME (BEAKER) 94.7 fL 79.4-94.8 (test code = 753) MEAN CORPUSCULAR HEMOGLOBIN 30.4 pg 25.6-32.2 (BEAKER) (test code = 751) MEAN CORPUSCULAR HEMOGLOBIN CONC 32.1 GM/DL 32.2-35.5 L (BEAKER) (test code = 752) RED CELL DISTRIBUTION WIDTH 14.9 % 11.7-14.4 H (BEAKER) (test code = 412) PLATELET COUNT (BEAKER) (test 188 K/CU MM 150-450 code = 756) MEAN PLATELET VOLUME (BEAKER) 10.1 fL 9.4-12.3 (test code = 754) NEUTROPHILS RELATIVE PERCENT 53 % (BEAKER) (test code = 429) LYMPHOCYTES RELATIVE PERCENT 27 % (BEAKER) (test code = 430) MONOCYTES RELATIVE PERCENT 12 % (BEAKER) (test code = 431) EOSINOPHILS RELATIVE PERCENT 7 % (BEAKER) (test code = 432) BASOPHILS RELATIVE PERCENT 1 % (BEAKER) (test code = 437) NEUTROPHILS ABSOLUTE COUNT 2.89 K/ L 1.56-6.13 (BEAKER) (test code = 670) LYMPHOCYTES ABSOLUTE COUNT 1.47 K/ L 1.18-3.74 (BEAKER) (test code = 414) MONOCYTES ABSOLUTE COUNT (BEAKER) 0.66 K/ L 0.24-0.36 H (test code = 415) EOSINOPHILS ABSOLUTE COUNT 0.40 K/ L 0.04-0.36 H (BEAKER) (test code = 416) BASOPHILS ABSOLUTE COUNT (BEAKER) 0.05 K/ L 0.01-0.08 (test code = 417) IMMATURE GRANULOCYTES-RELATIVE 1 % 0-1 PERCENT (BEAKER) (test code = 2801) POCT-GLUCOSE [id number] 20:47:00 Test Item Value Reference Range Interpretation Comments POC-GLUCOSE METER 232 mg/dL 70-110 H : TESTED A T [facility] (BEAKER) (test code PRABHJOT Dickens BLDG A, = 1538) [place] [address] 0: House Nurse/Techni santana ID = [id number] for HAY JIMENEZ POCT-GLUCOSE [id number] 16:39:00 Test Item Value Reference Range Interpretation Comments POC-GLUCOSE METER 211 mg/dL 70-110 H : TESTED A T [facility] (BEAKER) (test code CAMBRIDG E BLDG A, = 1538) [place] [address] 0: House Nurse/Techni santana ID = [id number] for AARON ERA, PARVEEN POCT-GLUCOSE [id number] 11:51:00 Test Item Value Reference Range Interpretation Comments POC-GLUCOSE METER 195 mg/dL 70-110 H : TESTED A T [facility] (BEAKER) (test code CAMBRIDG E BLDG A, = 1538) [place] [address] 0: House Nurse/Techni santana ID = [id number] for AARON ERA, PARVEEN POCT-GLUCOSE [id number] 06:12:00 Test Item Value Reference Range Interpretation Comments POC-GLUCOSE METER 128 mg/dL 70-110 H : TESTED A T [facility] (BEAKER) (test code CAMBRIDG E BLDG A, = 1538) [place] [address] 0: House Nurse/Techni santana ID = [id number] for HAY JIMENEZ [id number] 05:48:00 Test Item Value Reference Range Interpretation Comments PHOSPHORUS (BEAKER) (test code = 2.6 mg/dL 2.3-4.7 604) POCT-GLUCOSE [id number] 20:39:00 Test Item Value Reference Range Interpretation Comments POC-GLUCOSE METER 189 mg/dL 70-110 H : TESTED A T [facility] (BEAKER) (test code CAMBRIDG E BLDG A, = 1538) [place] [address] 0: House Nurse/Techni santana ID = [id number] for HAY JIMENEZ POCT-GLUCOSE [id number] 17:03:00 Test Item Value Reference Range Interpretation Comments POC-GLUCOSE METER 175 mg/dL 70-110 H : TESTED A T [facility] (BEAKER) (test code CAMBRIDG E BLDG A, = 1538) [place] [address] 0: House Nurse/Techni santana ID = [id number] for JACKY DUONG POCT-GLUCOSE [id number] 12:14:00 Test Item Value Reference Range Interpretation Comments POC-GLUCOSE METER 142 mg/dL 70-110 H : TESTED A T [facility] (BEAKER) (test code CAMBJERMAINE Dickens BLDG A, = 1538) [place] [address] 0: House Nurse/Techni santana ID = [id number] for ANNA MANRIQUE, JACKY COMPREHENSIVE METABOLIC [id number] 07:05:00 Test Item Value Reference Range Interpretation Comments TOTAL PROTEIN 4.4 gm/dL 6.0-8.5 L (BEAKER) (test code = 770) ALBUMIN (BEAKER) 2.8 g/dL 3.5-5.0 L (test code = 1145) ALKALINE PHOSPHATASE < U/L 30-115 L (BEAKER) (test code = 346) BILIRUBIN TOTAL 0.4 mg/dL 0.1-1.2 (BEAKER) (test code = 377) SODIUM (BEAKER) (test 141 meq/L 135-148 code = 381) POTASSIUM (BEAKER) 3.9 meq/L (test code = 379) CHLORIDE (BEAKER) 107 meq/L 98-106 H (test code = 382) CO2 (BEAKER) (test 25 meq/L code = 355) BLOOD UREA NITROGEN 24 mg/dL 10-26 (BEAKER) (test code = 354) CREATININE (BEAKER) 1.06 mg/dL 0.50-1.20 (test code = 358) GLUCOSE RANDOM 112 mg/dL (BEAKER) (test code = 652) CALCIUM (BEAKER) 7.8 mg/dL 8.5-10.5 L (test code = 697) AST (SGOT) (BEAKER) 13 U/L 5-40 (test code = 353) ALT (SGPT) (BEAKER) 10 U/L 5-50 (test code = 347) EGFR (BEAKER) (test 50 mL/min/1.73 ESTIMA GHAZAL GFR IS code = 1092) sq m NOT ACCURATE CREATININE CLEARANCE IN PREDICTING GLOMERULAR FILTRATION RATE . ESTIMATED GFR I S NOT APPLICABLE FOR DIALYSIS PATIEN TS. [id number] 07:05:00 Test Item Value Reference Range Interpretation Comments MAGNESIUM (BEAKER) (test code = 1.9 mg/dL 1.6-2.6 627) POCT-GLUCOSE [id number] 06:33:00 Test Item Value Reference Range Interpretation Comments POC-GLUCOSE METER 121 mg/dL 70-110 H : TESTED A T [facility] (BEAKER) (test code PRABHJOT Dickens BLDG A, = 1538) [place] [address] 0: House Nurse/Techni santana ID = [id number] for ABI RAMOS CBC W/PLT COUNT & AUTO [id number] 06:24:00 Test Item Value Reference Range Interpretation Comments WHITE BLOOD CELL COUNT (BEAKER) 5.7 K/ L 3.5-10.5 (test code = 775) RED BLOOD CELL COUNT (BEAKER) 2.62 M/ L 3.93-5.22 L (test code = 761) HEMOGLOBIN (BEAKER) (test code = 8.0 GM/DL 11.2-15.7 L 410) HEMATOCRIT (BEAKER) (test code = 24.7 % 34.1-44.9 L 411) MEAN CORPUSCULAR VOLUME (BEAKER) 94.3 fL 79.4-94.8 (test code = 753) MEAN CORPUSCULAR HEMOGLOBIN 30.5 pg 25.6-32.2 (BEAKER) (test code = 751) MEAN CORPUSCULAR HEMOGLOBIN CONC 32.4 GM/DL 32.2-35.5 (BEAKER) (test code = 752) RED CELL DISTRIBUTION WIDTH 15.0 % 11.7-14.4 H (BEAKER) (test code = 412) PLATELET COUNT (BEAKER) (test 136 K/CU MM 150-450 L code = 756) MEAN PLATELET VOLUME (BEAKER) 10.9 fL 9.4-12.3 (test code = 754) NEUTROPHILS RELATIVE PERCENT 57 % (BEAKER) (test code = 429) LYMPHOCYTES RELATIVE PERCENT 21 % (BEAKER) (test code = 430) MONOCYTES RELATIVE PERCENT 13 % (BEAKER) (test code = 431) EOSINOPHILS RELATIVE PERCENT 8 % (BEAKER) (test code = 432) BASOPHILS RELATIVE PERCENT 1 % (BEAKER) (test code = 437) NEUTROPHILS ABSOLUTE COUNT 3.25 K/ L 1.56-6.13 (BEAKER) (test code = 670) LYMPHOCYTES ABSOLUTE COUNT 1.22 K/ L 1.18-3.74 (BEAKER) (test code = 414) MONOCYTES ABSOLUTE COUNT (BEAKER) 0.73 K/ L 0.24-0.36 H (test code = 415) EOSINOPHILS ABSOLUTE COUNT 0.43 K/ L 0.04-0.36 H (BEAKER) (test code = 416) BASOPHILS ABSOLUTE COUNT (BEAKER) 0.05 K/ L 0.01-0.08 (test code = 417) IMMATURE GRANULOCYTES-RELATIVE 0 % 0-1 PERCENT (BEAKER) (test code = 2801) [id number] 06:23:00 Test Item Value Reference Range Interpretation Comments PHOSPHORUS (BEAKER) (test code = 2.8 mg/dL 2.3-4.7 604) POCT-GLUCOSE [id number] 20:51:00 Test Item Value Reference Range Interpretation Comments POC-GLUCOSE METER 166 mg/dL 70-110 H : TESTED A T [facility] (BEAKER) (test code CAMBRIDG E BLDG A, = 1538) [place] [address] 0: House Nurse/Techni sanatna ID = [id number] for ABI RAMOS POCT-GLUCOSE [id number] 18:21:00 Test Item Value Reference Range Interpretation Comments POC-GLUCOSE METER 159 mg/dL 70-110 H : TESTED A T [facility] (BEAKER) (test code CAMBRIDG E BLDG A, = 1538) [place] [address] 0: House Nurse/Techni santana ID = [id number] for JACKY DUONG EKG 12 [id number] 14:57:57Interface, External Ris In - 09/18/2019 2:58 PM CDTVentricular Rate 83 BPMAtrial Rate 84 BPMQRS Duration 98 msQ-T Interval 378 msQTC Calculation(Bazett) 444 msR Elizabeth 40 degreesT Elizabeth 103 degreesAtrial fibrillationT wave abnormality, consider lateral ischemia or digitalis effectAbnormal ECGWhen compared with ECG of 15-SEP-2019 04:16,Atrial fibrillation has replaced Sinus rhythmNonspecific T wave abnormality now evident in Inferior leadsInverted T waves have replaced nonspecific T wave abnormality inLateral leadsQT has shortenedConfirmed by MD JORDEN, BARNEY Mg ([id number]) on 09/18/2019 2:57:56 [facility] DiegoFL, [id number] 14:37:00Reason for exam:->gerdFINAL REPORT Barium esophagogram Clinical History: gerd Discussion: Effervescent crystals, thick barium, and thin barium are given to the patient to drink. Note patient was unable to drink in a prone position. There is mild esophageal spasm. Esophageal mucosa, caliber, and gastroesophageal junction are normal. Moderate to severe gastroesophageal reflux is noted. 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 Fluoro time: 1.3 minutes Number of images obtained: 13 Impress ion: Moderate to severe gastroesophageal reflux. Signed: Karin Henao Verified Date/Time: 09/18/2019 14:37:01 Reading Location: [address] Ortho Consult Reading Room [facility] [id number] 14:37:00Interface, External Ris In - 09/18/2019 2:39 PM CDTFINAL REPORT Barium esophagogram Clinical History: gerd Discussion: Effervescent crystals, thick barium, and thin barium are given to the patient to drink. Note patient was unable to drink in a prone position. There is mild esophageal spasm. Esophageal mucosa, caliber, and gastroesophageal junction are normal. Moderate to severe gastroesophageal reflux is noted. 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 Fluoro time : 1.3 minutes Number of images obtained: 13 Impression: Moderate to severe gastroesophageal reflux.Signed: Karin Henao Verified Date/Time: 09/18/2019 14:37:01 Reading Location: [facility] C013X Ortho Consult Reading Room [facility] DiegoPOCT-GL[facility]SE [id number] 14:31:00 Test Item Value Reference Range Interpretation Comments POC-GLUCOSE METER 166 mg/dL 70-110 H : TESTED A T [facility] 6720 (BEAKER) (test code = [place], 1538) [id number]: House Nurse/Techni santana ID = [id number] for DARSHANA, MELISSA [place], ESOPH, SWALLOW FUNCTION, WITH CINE OR [id number] 13:23:00MBSS w/robin + esophagram as feasibleReason for exam:->dysphagia, aspiration, reflux, motilityFINAL REPORT Modified barium swallow exam with speech pathology service CLINICAL HISTORY: dysphagia, aspiration, reflux, motility IMPRESSION: Please see the speech pathology service report for details. Barium contrast of multiple consistencies is given to the patient to swallow. Fluoroscopic observation is performed during swallowing. No aspiration. Fluoro time: Two minutes Number of images: 12 Signed: Karin Henao Verified Date/Time: 09/18/2019 13:23:18 Reading Location: [address] Ortho Consult Reading Room [place] esoph swallow funct with cine [id number] 13:23:00Interface, External Ris In - 09/18/2019 1:25 PM CDTFINAL REPORT Modified barium swallow exam with speech pathology service CLINICAL HISTORY: dysphagia, aspiration, reflux, motility IMPRESSION: Please see the speech pathology service report for details. Barium contrast of multiple consistencies is given to the patient to swallow. Fluoroscopic observation is performed during swallowing. No aspiration. Fluoro time: Two minutes Number of images: 12 Signed: Karin Henao Verified Date/Time: 09/18/2019 13:23:18 Reading Location: [address] Ortho Consult Reading [facility] [place]PO[facility] [id number] 11:13:00 Test Item Value Reference Range Interpretation Comments POC-GLUCOSE METER 115 mg/dL 70-110 H : TESTED A T [facility] ([facility] CAMPUS) (test code = [place], 1538) [address]: House Nurse/Techni santana ID = [id number] for MELISSA GILLILAND CBC W/PLT COUNT & AUTO [id number] 11:02:00 Test Item Value Reference Range Interpretation Comments WHITE BLOOD CELL COUNT ([facility]) 7.0 K/ L 3.5-10.5 (test code = 775) RED BLOOD CELL COUNT (BEAKER) 2.64 M/ L 3.93-5.22 L (test code = 761) HEMOGLOBIN (BEAKER) (test code = 7.9 GM/DL 11.2-15.7 L 410) HEMATOCRIT (BEAKER) (test code = 24.9 % 34.1-44.9 L 411) MEAN CORPUSCULAR VOLUME (BEAKER) 94.3 fL 79.4-94.8 (test code = 753) MEAN CORPUSCULAR HEMOGLOBIN 29.9 pg 25.6-32.2 (BEAKER) (test code = 751) MEAN CORPUSCULAR HEMOGLOBIN CONC 31.7 GM/DL 32.2-35.5 L (BEAKER) (test code = 752) RED CELL DISTRIBUTION WIDTH 15.2 % 11.7-14.4 H (BEAKER) (test code = 412) PLATELET COUNT (BEAKER) (test code 99 K/CU MM 150-450 L = 756) MEAN PLATELET VOLUME (BEAKER) 11.8 fL 9.4-12.3 (test code = 754) NUCLEATED RED BLOOD CELLS (BEAKER) 0 /100 WBC 0-0 (test code = 413) NEUTROPHILS RELATIVE PERCENT 63 % (BEAKER) (test code = 429) LYMPHOCYTES RELATIVE PERCENT 19 % (BEAKER) (test code = 430) MONOCYTES RELATIVE PERCENT 11 % (BEAKER) (test code = 431) EOSINOPHILS RELATIVE PERCENT 5 % (BEAKER) (test code = 432) BASOPHILS RELATIVE PERCENT 0 % (BEAKER) (test code = 437) NEUTROPHILS ABSOLUTE COUNT 4.42 K/ L 1.56-6.13 (BEAKER) (test code = 670) LYMPHOCYTES ABSOLUTE COUNT 1.34 K/ L 1.18-3.74 (BEAKER) (test code = 414) MONOCYTES ABSOLUTE COUNT (BEAKER) 0.78 K/ L 0.24-0.36 H (test code = 415) EOSINOPHILS ABSOLUTE COUNT 0.37 K/ L 0.04-0.36 H (BEAKER) (test code = 416) BASOPHILS ABSOLUTE COUNT (BEAKER) 0.03 K/ L 0.01-0.08 (test code = 417) IMMATURE GRANULOCYTES-RELATIVE 1 % 0-1 PERCENT (BEAKER) (test code = 2801) [id number] 06:59:00 Test Item Value Reference Range Interpretation Comments PHOSPHORUS (BEAKER) (test code = 2.1 mg/dL 2.3-4.7 L 604) House Nurse ID - DANO [id number] 06:59:00 Test Item Value Reference Range Interpretation Comments MAGNESIUM (BEAKER) (test code = 2.0 mg/dL 1.6-2.6 627) House Nurse ID - DANO MBASIC METABOLIC [id number] 06:59:00 Test Item Value Reference Range Interpretation Comments SODIUM (BEAKER) 137 meq/L 136-145 (test code = 381) POTASSIUM (BEAKER) 3.9 meq/L 3.5-5.1 (test code = 379) CHLORIDE (BEAKER) 109 meq/L 98-107 H (test code = 382) CO2 (BEAKER) (test 22 meq/L 22-29 code = 355) BLOOD UREA NITROGEN 27 mg/dL 7-21 H (BEAKER) (test code = 354) CREATININE (BEAKER) 0.98 mg/dL 0.57-1.25 (test code = 358) GLUCOSE RANDOM 110 mg/dL 70-105 H (BEAKER) (test code = 652) CALCIUM (BEAKER) 8.0 mg/dL 8.4-10.2 L (test code = 697) EGFR (BEAKER) (test 55 mL/min/1.73 ESTIMA GHAZAL GFR IS code = 1092) sq m NOT ACCURATE CREATININE CLEARANCE IN PREDICTING GLOMERULAR FILTRATION RATE . ESTIMATED GFR I S NOT APPLICABLE FOR DIALYSIS PATIEN TS. House Nurse ID - DANO MRAD, CHEST, 1 VIEW, NON [id number] 04:57:00Reason for exam:->CTShould this be performed at the bedside?->YesFINAL REPORT RAD, CHEST, 1 VIEW, NON DEPT INDICATION: CT COMPARISON: Prior day's exam FINDINGS: Portable frontal view of the chest. IMPRESSION: Support Lines: The left chest tube has been removed. Lungs and pleura: No significant change in pulmonary venous congestion and small left pleural effusion with adjacent left basilar airspace opacity. No pneumothorax.Heart and mediastinum: Stable contours. Additional findings: None. Signed: Abhinav Cuevaseport Verified Date/Time:09/18/2019 04:57:13 POCT-GLUCOSE [id number] 21:54:00 Test Item Value Reference Range Interpretation Comments POC-GLUCOSE METER 164 mg/dL 70-110 H : TESTED A T [facility] 6720 (BEAKER) (test code = KAVYA Bennett [place], 1538) [address]: House Nurse/Techni santana ID = [id number] for BIANCA RICHARDS POCT-GLUCOSE [id number] 21:34:00 Test Item Value Reference Range Interpretation Comments POC-GLUCOSE METER 165 mg/dL 70-110 H : TESTED A T [facility] 6720 (BEAKER) (test code = KAVYA Bennett [facility], 1538) 016[address]: House Nurse/Techni santana ID = [id number] for MELISSA GILLILAND Urinalysis w/Microscopic + Reflex to [id number] 17:29:00 Test Item Value Reference Range Interpretation Comments Color, UA (test code = Yellow 5778-6) Clarity, UA (test code = Clear 5767-9) Specific [place], UA (test 1.018 1.001-1.035 code = 5811-5) pH, UA (test code = 5.0 5.0-8.0 5803-2) Protein, UA (test code = 10 mg/dL Negative A 65862-3) Glucose, UA (test code = Negative Negative 365) Ketones, UA (test code = Negative Negative 2514-8) Bilirubin, UA (test code = Negative Negative 84589-1) Blood, UA (test code = Negative Negative 97974-3) Nitrite, UA (test code = Negative Negative 5802-4) Leukocytes, UA (test code Large Negative A = 5799-2) Urobilinogen, UA (test 0.2 mg/dL 0.2-1 code = 89260-6) RBC, UA (test code = 1 /HPF 66584-0) WBC, UA (test code = 4 /HPF 5821-4) Bacteria, UA (test code = Few 07636-5) Mucus (test code = 8247-9) Few Squam Epithel, UA (test <1 /HPF code = 23292-4) Hyaline Casts, UA (test 12 /LPF code = 21546-5) Amorphous Crystals (test Rare code = 25687-8) Specimen Source (test code = 2795) KAILA (test code = KAILA) House Nurse ID - [auto]House Nurse ID - tech Lab Interpretation (test Abnormal code = 30621-2) [facility] UR[facility] [id number] 17:29:00 Test Item Value Reference Range Interpretation Comments COLOR (BEAKER) (test code = 470) Yellow CLARITY (BEAKER) (test code = 469) Clear SPECIFIC GRAVITY UA (BEAKER) (test 1.018 1.001-1.035 code = 468) PH UA (BEAKER) (test code = 467) 5.0 5.0-8.0 PROTEIN UA (BEAKER) (test code = 10 mg/dL Negative A 464) GLUCOSE UA (BEAKER) (test code = Negative Negative 365) KETONES UA (BEAKER) (test code = Negative Negative 371) BILIRUBIN UA (BEAKER) (test code = Negative Negative 462) BLOOD UA (BEAKER) (test code = 461) Negative Negative NITRITE UA (BEAKER) (test code = Negative Negative 465) LEUKOCYTE ESTERASE UA (BEAKER) Large Negative A (test code = 466) UROBILINOGEN UA (BEAKER) (test code 0.2 mg/dL 0.2-1.0 = 463) RBC UA (BEAKER) (test code = 519) 1 /HPF WBC UA (BEAKER) (test code = 520) 4 /HPF BACTERIA (BEAKER) (test code = 517) Few MUCUS (BEAKER) (test code = 1574) Few SQUAMOUS EPITHELIAL (BEAKER) (test < /HPF code = 516) HYALINE CASTS (BEAKER) (test code = 12 /LPF 514) AMORPHOUS CRYSTALS (BEAKER) (test Rare code = 1584) SOURCE(BEAKER) (test code = 2795) House Nurse ID - [auto]House Nurse ID - techPOCT-GLUCOSE [id number] 12:48:00 Test Item Value Reference Range Interpretation Comments POC-GLUCOSE METER 168 mg/dL 70-110 H : TESTED A T [facility] 6720 (BEAKER) (test code = KAVYA MCKE[place], 1538) 44[address]: House Nurse/Techni santana ID = [id number] for MELISSA GILLILAND RAD, CHEST, 1 VIEW, NON [id number] 08:52:00Reason for exam:->CTShould this be performed at the bedside?->YesFINAL REPORT CLINICAL HISTORY: CT TECHNIQUE: 1 view of the chest. COMPARISON:09/16/2019 IMPRESSION: The right jugular line has been removed. There is a new right PICC line in theright axilla, which should be replaced. Midline chest tube has been removed. A left lower chest tuberemains. Left lower chest wall subcutaneous emphysema is again seen. There is no pneumothorax. Bilateral lower lung airspace opacities appear increased. Small bilateral pleural effusions are again seen. The cardiomediastinal silhouette is magnified by technique with sternotomy wires. Signed: Tiara Dunlap MDReport Verified Date/Time: 09/17/2019 08:52:23 Reading Location: [facility] Radiology Reading Room POCT- GLUCOSE [id number] 08:29:00 Test Item Value Reference Range Interpretation Comments POC-GLUCOSE METER 102 mg/dL 70-110 : TESTED A T [facility] 6720 (BEAKER) (test code = KAVYA Bennett [facility], 1538) 28087: House Nurse/Techni santana ID = [id number] for MELISSA GILLILAND [id number] 06:46:00 Test Item Value Reference Range Interpretation Comments PHOSPHORUS (BEAKER) (test code = 1.9 mg/dL 2.3-4.7 L 604) House Nurse ID - YELENA [id number] 06:46:00 Test Item Value Reference Range Interpretation Comments MAGNESIUM (BEAKER) (test code = 2.3 mg/dL 1.6-2.6 627) House Nurse ID - YELENA LBASIC METABOLIC [id number] 06:46:00 Test Item Value Reference Range Interpretation Comments SODIUM (BEAKER) 136 meq/L 136-145 (test code = 381) POTASSIUM (BEAKER) 3.5 meq/L 3.5-5.1 (test code = 379) CHLORIDE (BEAKER) 109 meq/L 98-107 H (test code = 382) CO2 (BEAKER) (test 22 meq/L 22-29 code = 355) BLOOD UREA NITROGEN 30 mg/dL 7-21 H (BEAKER) (test code = 354) CREATININE (BEAKER) 0.93 mg/dL 0.57-1.25 (test code = 358) GLUCOSE RANDOM 130 mg/dL 70-105 H (BEAKER) (test code = 652) CALCIUM (BEAKER) 8.2 mg/dL 8.4-10.2 L (test code = 697) EGFR (BEAKER) (test 58 mL/min/1.73 ESTIMA GHAZAL GFR IS code = 1092) sq m NOT ACCURATE CREATININE CLEARANCE IN PREDICTING GLOMERULAR FILTRATION RATE . ESTIMATED GFR I S NOT APPLICABLE FOR DIALYSIS PATIEN TS. House Nurse ID - PIAYA LCBC W/PLT COUNT & AUTO [id number] 06:20:00 Test Item Value Reference Range Interpretation Comments WHITE BLOOD CELL COUNT (BEAKER) 9.3 K/ L 3.5-10.5 (test code = 775) RED BLOOD CELL COUNT (BEAKER) 2.64 M/ L 3.93-5.22 L (test code = 761) HEMOGLOBIN (BEAKER) (test code = 7.9 GM/DL 11.2-15.7 L 410) HEMATOCRIT (BEAKER) (test code = 24.2 % 34.1-44.9 L 411) MEAN CORPUSCULAR VOLUME (BEAKER) 91.7 fL 79.4-94.8 (test code = 753) MEAN CORPUSCULAR HEMOGLOBIN 29.9 pg 25.6-32.2 (BEAKER) (test code = 751) MEAN CORPUSCULAR HEMOGLOBIN CONC 32.6 GM/DL 32.2-35.5 (BEAKER) (test code = 752) RED CELL DISTRIBUTION WIDTH 15.3 % 11.7-14.4 H (BEAKER) (test code = 412) PLATELET COUNT (BEAKER) (test code 99 K/CU MM 150-450 L = 756) MEAN PLATELET VOLUME (BEAKER) 11.6 fL 9.4-12.3 (test code = 754) NUCLEATED RED BLOOD CELLS (BEAKER) 0 /100 WBC 0-0 (test code = 413) NEUTROPHILS RELATIVE PERCENT 68 % (BEAKER) (test code = 429) LYMPHOCYTES RELATIVE PERCENT 16 % (BEAKER) (test code = 430) MONOCYTES RELATIVE PERCENT 11 % (BEAKER) (test code = 431) EOSINOPHILS RELATIVE PERCENT 5 % (BEAKER) (test code = 432) BASOPHILS RELATIVE PERCENT 1 % (BEAKER) (test code = 437) NEUTROPHILS ABSOLUTE COUNT 6.31 K/ L 1.56-6.13 H (BEAKER) (test code = 670) LYMPHOCYTES ABSOLUTE COUNT 1.46 K/ L 1.18-3.74 (BEAKER) (test code = 414) MONOCYTES ABSOLUTE COUNT (BEAKER) 0.99 K/ L 0.24-0.36 H (test code = 415) EOSINOPHILS ABSOLUTE COUNT 0.45 K/ L 0.04-0.36 H (BEAKER) (test code = 416) BASOPHILS ABSOLUTE COUNT (BEAKER) 0.05 K/ L 0.01-0.08 (test code = 417) IMMATURE GRANULOCYTES-RELATIVE 0 % 0-1 PERCENT (BEAKER) (test code = 2801) Prepare Leuko-Red [id number] 23:54:00 Test Item Value Reference Range Interpretation Comments CROSSMATCH (test code = 2264) COMPATIBLE Unit ABO (test code = A Neg 1095439) UNIT NUMBER (test code = [id number] 934-0) Status (test code = 5730177) [facility] Blood Bank Product (test code RED BLOOD CELLS = 2263) PRODUCT CODE (test code = D6659B44 933-2) [facility] CenterPO[facility] [id number] 21:06:00 Test Item Value Reference Range Interpretation Comments POC-GLUCOSE METER 172 mg/dL 70-110 H : TESTED A T [facility] 6720 (BEAKER) (test code = KAVYA VANESSA [place], 1538) [address]: House Nurse/Techni santana ID = [id number] for PI BIANCA LARSON [place]1050-12-29 16:48:31Sylvia Trejo NP 09/16/2019 4:52 PMMid LineDate/Time: 09/16/2019 4:48 PMPerformed by: Sylvia Trejo NPAuthorized by: Sylvia Trejo NP Consent: Verbal consent obtained.Risks and benefits: risks, benefits and alternatives were discussedConsent given by: patientPatient understanding: patient states understanding of the procedure being performedPatient consent: the patient's understanding of the procedure matches consent givenProcedure consent: procedure consent matches procedure scheduledRelevant documents: relevant documents present and verifiedTest results: test results available and properly labeledSite marked: the operative site was markedRequired items: required blood products, implants, devices, and special equipment availablePatient identity confirmed: verbally withpatient, arm band, provided demographic data and hospital-assigned identification numberTime out: Immediately prior to procedure a "time out" was called to verify the correct patient, procedure, equipment, sales support associate and site/side marked as required.Indications: vascular accessAnesthesia: local infiltration Anesthesia:Local Anesthetic: lidocaine 1% without epinephrine Sedation:Patient sedated: no Preparation: skin prepped with 2% chlorhexidineSkin prep agent dried: skin prep agent completely dried prior to procedureSterile barriers: all five maximum sterile barriers used - cap, mask, sterile gown, sterile gloves, and large sterile sheetHand hygiene: hand hygiene performed prior to central venous catheter insertionLocation: Right Basilic Vein Patient position: flatCatheter type: double lumenCatheter size: 4 FrPre-procedure: landmarks identifiedUltrasound guidance: yesSterile ultrasound techniques: sterile gel and sterile probe covers were usedNumber of attempts: 1Successful placement: yesPost-procedure: dressing appliedAssessment: blood return through all ports and free fluid flowImmediate Post-Procedure Note Assistants to the procedure: NonePre-procedure diagnosis: post op heart surgery/difficult piv Post-procedure diagnosis: post op heart surgery/difficult piv Procedures Performed: [facility] neSpecimens removed: NoneEstimated blood loss (mL): NoneComplications: NoneType of anesthesia: NoneGrafts or Implants: None Comments: Catheter length: 17 cmLot#: [id number]: 1[facility] CenterPO[facility]ER 2019-09-16 12:38:00 Test Item Value Reference Range Interpretation Comments POC-GLUCOSE METER 181 mg/dL 70-110 H : TESTED A T [facility] (BEAKER) (test code = KAVYA VANESSA [place], 1538) 50730: House Nurse/Techni santana ID = [id number] for LO SCARLET, BRITTANY RAD, CHEST, 1 VIEW, NON [id number] 09:32:00Reason for exam:->CTShould this be performed at the bedside?->YesFINAL REPORT CLINICAL HISTORY: CT TECHNIQUE: 1 view of the chest. COMPARISON:09/15/2019 IMPRESSION: The supporting lines and tubes are similar appearing. There is no pneumothorax.Bilateral lower lung bandlike opacities are similar appearing. There is no significant appearing pleural fluid. The cardiomediastinal silhouette is magnified by technique with sternotomy wires. Signed: Tiara Dunlap MDReport Verified Date/Time: 09/16/2019 09:32:30 Reading Location: [facility] Radiology Reading Room [id number] 04:09:00 Test Item Value Reference Range Interpretation Comments PHOSPHORUS (BEAKER) (test code = 3.2 mg/dL 2.3-4.7 604) House Nurse ID - DANO [id number] 04:09:00 Test Item Value Reference Range Interpretation Comments MAGNESIUM (BEAKER) (test code = 2.2 mg/dL 1.6-2.6 627) House Nurse ID - DANO MBASIC METABOLIC [id number] 04:09:00 Test Item Value Reference Range Interpretation Comments SODIUM (BEAKER) 142 meq/L 136-145 (test code = 381) POTASSIUM (BEAKER) 4.0 meq/L 3.5-5.1 (test code = 379) CHLORIDE (BEAKER) 114 meq/L 98-107 H (test code = 382) CO2 (BEAKER) (test 21 meq/L 22-29 L code = 355) BLOOD UREA NITROGEN 30 mg/dL 7-21 H (BEAKER) (test code = 354) CREATININE (BEAKER) 1.08 mg/dL 0.57-1.25 (test code = 358) GLUCOSE RANDOM 172 mg/dL 70-105 H (BEAKER) (test code = 652) CALCIUM (BEAKER) 8.2 mg/dL 8.4-10.2 L (test code = 697) EGFR (BEAKER) (test 49 mL/min/1.73 ESTIMA GHAZAL GFR IS code = 1092) sq m NOT ACCURATE CREATININE CLEARANCE IN PREDICTING GLOMERULAR FILTRATION RATE . ESTIMATED GFR I S NOT APPLICABLE FOR DIALYSIS PATIEN TS. House Nurse ID - DANO MPT/[id number] 04:07:00 Test Item Value Reference Range Interpretation Comments Protime (test code = 16.1 11.9- 14.2 H 5902-2) seconds INR (test code = 1.3 <=5.9 6301-6) PTT (test code = 34.3 22.5- 36.0 81110-7) seconds KAILA (test code = KAILA) Effective 09/03/2018: PT Reference Range ChangeNew: 11.9-14.2 Previous: 11.7-14.7 RECOMMENDED COUMADIN/WARFARIN INR THERAPY RANGESSTANDARD DOSE: 2.0-3.0 Includes: PROPHYLAXIS for venous thrombosis, systemic embolization; TREATMENT for venous thrombosis and/or pulmonary embolus.HIGH RISK: Target INR is 2.5-3.5 for patients wiht mechanical heart valves. Lab Interpretation Abnormal (test code = 98051-1) [facility] CenterPT/[id number] 04:07:00 Test Item Value Reference Range Interpretation Comments PROTIME (BEAKER) (test code = 16.1 seconds 11.9-14.2 H 759) INR (BEAKER) (test code = 370) 1.3 <=5.9 PARTIAL THROMBOPLASTIN TIME 34.3 seconds 22.5-36.0 (BEAKER) (test code = 760) Effective 09/03/2018: PT Reference Range ChangeNew: 11.9-14.2 Previous: 11.7- 14.7RECOMMENDED COUMADIN/WARFARIN INR THERAPY RANGESSTANDARD DOSE: 2.0-3.0 Includes: PROPHYLAXIS for venous thrombosis, systemic embolization; TREATMENT for venous thrombosis and/or pulmonary embolus.HIGH RISK: Target INR is2.5-3.5 for patients wiht mechanical heart valves.CBC (Hemogram only)2019-09-16 03:49:00 Test Item Value Reference Range Interpretation Comments WBC (test code = 6690-2) 10.1 3.5- 10.5 K/L RBC (test code = 789-8) 2.78 3.93- 5.22 M/L L MCHC (test code = 786-4) 32.4 32.2- 35.5 GM/DL L Hematocrit (test code = 4544-3) 25.6 % 34.1-44.9 L MCV (test code = 787-2) 92.1 fL 79.4-94.8 MCH (test code = 785-6) 29.9 pg 25.6-32.2 RDW (test code = 788-0) 15.7 % 11.7-14.4 H Platelets (test code = 777-3) 82 150- 450 K/CU MM L MPV (test code = 47938-3) 11.1 fL 9.4-12.3 nRBC (test code = 413) 0 0- 0 /100 WBC Lab Interpretation (test code = Abnormal 07646-3) [facility] (HEMOGRAM ONLY)2019-09-16 03:49:00 Test Item Value Reference Range Interpretation Comments WHITE BLOOD CELL COUNT (BEAKER) 10.1 K/ L 3.5-10.5 (test code = 775) RED BLOOD CELL COUNT (BEAKER) 2.78 M/ L 3.93-5.22 L (test code = 761) HEMOGLOBIN (BEAKER) (test code = 8.3 GM/DL 11.2-15.7 L 410) HEMATOCRIT (BEAKER) (test code = 25.6 % 34.1-44.9 L 411) MEAN CORPUSCULAR VOLUME (BEAKER) 92.1 fL 79.4-94.8 (test code = 753) MEAN CORPUSCULAR HEMOGLOBIN 29.9 pg 25.6-32.2 (BEAKER) (test code = 751) MEAN CORPUSCULAR HEMOGLOBIN CONC 32.4 GM/DL 32.2-35.5 (BEAKER) (test code = 752) RED CELL DISTRIBUTION WIDTH 15.7 % 11.7-14.4 H (BEAKER) (test code = 412) PLATELET COUNT (BEAKER) (test code 82 K/CU MM 150-450 L = 756) MEAN PLATELET VOLUME (BEAKER) 11.1 fL 9.4-12.3 (test code = 754) NUCLEATED RED BLOOD CELLS (BEAKER) 0 /100 WBC 0-0 (test code = 413) Calcium, [id number] 03:46:00 Test Item Value Reference Range Interpretation Comments Calcium, Ion (test code = 1994-3) 1.14 mmol/L 1.12-1.27 pH, Blood (test code = 90319-2) 7.34 [facility] CenterCALCIUM, [id number] 03:46:00 Test Item Value Reference Range Interpretation Comments CALCIUM IONIZED (BEAKER) (test 1.14 mmol/L 1.12-1.27 code = 698) PH, BLOOD (BEAKER) (test code = 7.34 1810) Prepare [id number] 23:54:00 Test Item Value Reference Range Interpretation Comments CROSSMATCH (test code = COMPATIBLE 4) Unit ABO (test code = A Neg 9017956) UNIT NUMBER (test code = [id number] 934-0) Status (test code = RETURNED FROM ISSUE 6548046) Blood Bank Product (test RED BLOOD CELLS code = 2263) PRODUCT CODE (test code = J1240G95 933-2) [facility] CenterPOCT-GLUCOSE [id number] 22:42:00 Test Item Value Reference Range Interpretation Comments POC-GLUCOSE METER 180 mg/dL 70-110 H : TESTED A T [facility] 6720 (BEAKER) (test code = [facility], 153) 81891: House Nurse/Techni santana ID = [id number] for CE RVANTES, PRIYANKA POCT-GLUCOSE [id number] 18:26:00 Test Item Value Reference Range Interpretation Comments POC-GLUCOSE METER 149 mg/dL 70-110 H : TESTED A T [facility] 6720 (BEAKER) (test code = [facility], 1538) 47990: House Nurse/Techni santana ID = [id number] for BARRENTINE, LB PHEN POCT-GLUCOSE [id number] 15:18:00 Test Item Value Reference Range Interpretation Comments POC-GLUCOSE METER 194 mg/dL 70-110 H : TESTED A T [facility] 6720 (BEAKER) (test code = [facility], 1538) 12385: House Nurse/Techni santana ID = [id number] for BARRENTINE, LB PHEN CBC (HEMOGRAM ONLY)2019-09-15 12:23:00 Test Item Value Reference Range Interpretation Comments WHITE BLOOD CELL COUNT (BEAKER) 12.6 K/ L 3.5-10.5 H (test code = 775) RED BLOOD CELL COUNT (BEAKER) 2.41 M/ L 3.93-5.22 L (test code = 761) HEMOGLOBIN (BEAKER) (test code = 7.4 GM/DL 11.2-15.7 L 410) HEMATOCRIT (BEAKER) (test code = 22.8 % 34.1-44.9 L 411) MEAN CORPUSCULAR VOLUME (BEAKER) 94.6 fL 79.4-94.8 (test code = 753) MEAN CORPUSCULAR HEMOGLOBIN 30.7 pg 25.6-32.2 (BEAKER) (test code = 751) MEAN CORPUSCULAR HEMOGLOBIN CONC 32.5 GM/DL 32.2-35.5 (BEAKER) (test code = 752) RED CELL DISTRIBUTION WIDTH 13.6 % 11.7-14.4 (BEAKER) (test code = 412) PLATELET COUNT (BEAKER) (test code 92 K/CU MM 150-450 L = 756) MEAN PLATELET VOLUME (BEAKER) 11.4 fL 9.4-12.3 (test code = 754) NUCLEATED RED BLOOD CELLS (BEAKER) 0 /100 WBC 0-0 (test code = 413) POCT-GLUCOSE [id number] 08:26:00 Test Item Value Reference Range Interpretation Comments POC-GLUCOSE METER 87 mg/dL 70-110 : TESTED A T [facility] 6720 (BEAKER) (test code = [facility], 1538) 45500: House Nurse/Techni santana ID = [id number] for CASSY MC JAIRO POCT-GLUCOSE [id number] 06:12:00 Test Item Value Reference Range Interpretation Comments POC-GLUCOSE METER 106 mg/dL 70-110 : TESTED A T [facility] 6720 (BEAKER) ([facility] 1538) [address]308: House Nurse/Techni santana ID = [id number] for PRIYANKA BOYKIN Blood gas, [id number] 05:38:00 Test Item Value Reference Range Interpretation Comments pH, Arterial (test code = 2744-1) 7.34 7.35-7.45 L pCO2, Arterial (test code = 44 35- 45 mmHg 2018-8) pO2, Arterial (test code = 199 80- 90 mmHg H 2703-7) O2 Sat, Arterial (test code = 99.3 % 96-97 H 2708-6) HCO3, Arterial (test code = 23 mmol/L 21-29 1959-4) Base Excess, Arterial (test code -2.5 mmol/L -2-3 L = 1925-7) Patient Temperature (test code = 37.0 C 8310-5) FIO2 (test code = 1819) 36 % Lab Interpretation (test code = Abnormal 09095-9) [facility] [id number] 05:38:00 Test Item Value Reference Range Interpretation Comments PH ARTERIAL (BEAKER) (test code = 7.34 7.35-7.45 L 383) PCO2 ARTERIAL (BEAKER) (test code 44 mmHg 35-45 = 384) PO2 ARTERIAL (BEAKER) (test code 199 mmHg 80-90 H = 385) O2 SATURATION ARTERIAL (BEAKER) 99.3 % 96.0-97.0 H (test code = 386) HCO3 ARTERIAL (BEAKER) (test code 23 mmol/L 21-29 = 388) BASE EXCESS ARTERIAL (BEAKER) -2.5 mmol/L -2.0-3.0 L (test code = 387) PATIENT TEMPERATURE (BEAKER) 37.0 C (test code = 1818) FIO2 (BEAKER) (test code = 1819) 36.0 % POCT-GLUCOSE [id number] 05:22:00 Test Item Value Reference Range Interpretation Comments POC-GLUCOSE METER 112 mg/dL 70-110 H : TESTED A T [facility] 6720 (BEAKER) (test code = YSABELREED Bennett [facility], 1538) [address]: House Nurse/Techni santana ID = [id number] for CE RVANTES, PRIYANKA Oxygen saturation, [id number] 04:44:00 Test Item Value Reference Range Interpretation Comments O2 Saturation (Measured) (test code = 90.6 % 42823-3) [facility], [id number] 04:44:00 Test Item Value Reference Range Interpretation Comments O2 SATURATION (MEASURED) (BEAKER) 90.6 % (test code = 1455) CALCIUM, [id number] 04:13:00 Test Item Value Reference Range Interpretation Comments CALCIUM IONIZED (BEAKER) (test 1.15 mmol/L 1.12-1.27 code = 698) PH, BLOOD (BEAKER) (test code = 7.34 1810) Lactic Acid, [id number] 04:04:00 Test Item Value Reference Range Interpretation Comments Lactate, Art (test code = 1.1 mmol/L 0.5-2.2 2874) KAILA (test code = KAILA) House Nurse ID Von MATSON M Lab Interpretation (test Normal code = 44038-4) [facility], [id number] 04:04:00 Test Item Value Reference Range Interpretation Comments LACTATE BLOOD ARTERIAL (2) 1.1 mmol/L 0.5-2.2 (BEAKER) (test code = 2874) House Nurse ID - DANO [id number] 04:04:00 Test Item Value Reference Range Interpretation Comments PHOSPHORUS (BEAKER) (test code = 3.7 mg/dL 2.3-4.7 604) House Nurse ID - DANO [id number] 04:04:00 Test Item Value Reference Range Interpretation Comments MAGNESIUM (BEAKER) (test code = 2.5 mg/dL 1.6-2.6 627) House Nurse ID - DANO MBASIC METABOLIC [id number] 04:04:00 Test Item Value Reference Range Interpretation Comments SODIUM (BEAKER) 143 meq/L 136-145 (test code = 381) POTASSIUM (BEAKER) 3.9 meq/L 3.5-5.1 (test code = 379) CHLORIDE (BEAKER) 114 meq/L 98-107 H (test code = 382) CO2 (BEAKER) (test 22 meq/L 22-29 code = 355) BLOOD UREA NITROGEN 31 mg/dL 7-21 H (BEAKER) (test code = 354) CREATININE (BEAKER) 1.14 mg/dL 0.57-1.25 (test code = 358) GLUCOSE RANDOM 133 mg/dL 70-105 H (BEAKER) (test code = 652) CALCIUM (BEAKER) 8.5 mg/dL 8.4-10.2 (test code = 697) EGFR (BEAKER) (test 46 mL/min/1.73 ESTIMA GHAZAL GFR IS code = 1092) sq m NOT ACCURATE CREATININE CLEARANCE IN PREDICTING GLOMERULAR FILTRATION RATE . ESTIMATED GFR I S NOT APPLICABLE FOR DIALYSIS PATIEN TS. House Nurse ID - DANO MPT/[id number] 04:01:00 Test Item Value Reference Range Interpretation Comments PROTIME (BEAKER) (test code = 15.3 seconds 11.9-14.2 H 759) INR (BEAKER) (test code = 370) 1.2 <=5.9 PARTIAL THROMBOPLASTIN TIME 30.0 seconds 22.5-36.0 (BEAKER) (test code = 760) Effective 09/03/2018: PT Reference Range ChangeNew: 11.9-14.2 Previous: 11.7- 14.7RECOMMENDED COUMADIN/WARFARIN INR THERAPY RANGESSTANDARD DOSE: 2.0-3.0 Includes: PROPHYLAXIS for venous thrombosis, systemic embolization; TREATMENT for venous thrombosis and/or pulmonary embolus.HIGH RISK: Target INR is2.5-3.5 for patients wiht mechanical heart valves.CBC (HEMOGRAM ONLY)2019-09-15 03:50:00 Test Item Value Reference Range Interpretation Comments WHITE BLOOD CELL COUNT (BEAKER) 12.6 K/ L 3.5-10.5 H (test code = 775) RED BLOOD CELL COUNT (BEAKER) 2.74 M/ L 3.93-5.22 L (test code = 761) HEMOGLOBIN (BEAKER) (test code = 8.4 GM/DL 11.2-15.7 L 410) HEMATOCRIT (BEAKER) (test code = 25.8 % 34.1-44.9 L 411) MEAN CORPUSCULAR VOLUME (BEAKER) 94.2 fL 79.4-94.8 (test code = 753) MEAN CORPUSCULAR HEMOGLOBIN 30.7 pg 25.6-32.2 (BEAKER) (test code = 751) MEAN CORPUSCULAR HEMOGLOBIN CONC 32.6 GM/DL 32.2-35.5 (BEAKER) (test code = 752) RED CELL DISTRIBUTION WIDTH 13.5 % 11.7-14.4 (BEAKER) (test code = 412) PLATELET COUNT (BEAKER) (test 103 K/CU MM 150-450 L code = 756) MEAN PLATELET VOLUME (BEAKER) 11.1 fL 9.4-12.3 (test code = 754) NUCLEATED RED BLOOD CELLS 0 /100 WBC 0-0 (BEAKER) (test code = 413) POCT-GLUCOSE [id number] 03:45:00 Test Item Value Reference Range Interpretation Comments POC-GLUCOSE METER 125 mg/dL 70-110 H : TESTED A T [facility] 6720 (BEAKER) (test code = [facility], 1538) 64323: House Nurse/Techni santana ID = [id number] for CE RVANTES, PRIYANKA RAD, CHEST, 1 VIEW, NON [id number] 02:16:00while patient is intubated or has chest tubes.Reason for exam:->Status post CV SurgeryShould thisbe performed at the bedside?->YesFINAL REPORT CLINICAL INDICATION: Postop Comparison: 09/14/2019 at 1736 hours The cardiomediastinal contours are stable. The lung volumes have decreased after extubation. Worsening infrahilar opacities may reflect atelectasis but pneumonitis should be excluded clinically. There is no pneumothorax. Remaining support lines are stable. Signed: Chema Ibrahim Verified Date/Time: 09/15/2019 02:16:54 POCT-GLUCOSE METER 2019-09-15 01:53:00 Test Item Value Reference Range Interpretation Comments POC-GLUCOSE METER 111 mg/dL 70-110 H : TESTED A T [facility] 6720 (BEAKER) (test code = [facility], 1538) 16758: House Nurse/Techni santana ID = [id number] for CE RVANTES, PRIYANKA POCT-GLUCOSE [id number] 00:23:00 Test Item Value Reference Range Interpretation Comments POC-GLUCOSE METER 140 mg/dL 70-110 H : TESTED A T [facility] 6720 (BEAKER) (test code = [facility], 1538) 46991: House Nurse/Techni santana ID = [id number] for CE RVANTES, PRIYANKA POCT-GLUCOSE [id number] 00:23:00 Test Item Value Reference Range Interpretation Comments POC-GLUCOSE METER 150 mg/dL 70-110 H : TESTED A T [facility] 6720 (BEAKER) (test code = KAVYA Bennett [facility], 1538) 33465: House Nurse/Techni santana ID = [id number] for CE CLEM, PRIYANKA POCT-GLUCOSE [id number] 00:23:00 Test Item Value Reference Range Interpretation Comments POC-GLUCOSE METER 129 mg/dL 70-110 H : TESTED A T [facility] 6720 (BEAKER) (test code = KAVYA Bennett [facility], 1538) 28867: House Nurse/Techni santana ID = [id number] for CE RVED, PRIYANKA POCT-GLUCOSE [id number] 00:23:00 Test Item Value Reference Range Interpretation Comments POC-GLUCOSE METER 143 mg/dL 70-110 H : TESTED A T [facility] 6720 (BEAKER) (test code = KAVYA Bennett [facility], 1538) 19215: House Nurse/Techni santana ID = [id number] for CE RVED, PRIYANKA RAD, CHEST, 1 VIEW, NON [id number] 22:37:00Reason for exam:->Resp failure/ vent changes madeShould this be performed at the bedside?->YesFINAL REPORT CLINICAL INDICATION: Respiratory failure Comparison: 09/14/2019 at 1526 hours The cardiomediastinal contours are stable. There is improved aeration of the left lung. The left hemidiaphragm remains elevated. Retrocardiac opacity in the left lung may reflect atelectasis or scarring. Pneumonitis should be excluded clinically. The right lung is clear. There is no pneumothorax, large pleural collection or evidence of overt pulmonary edema. Support lines are stable. Signed: Chema Ibrahim MDReport Verified Date/Time: 09/14/2019 22:37:51 [id number] 21:29:00 Test Item Value Reference Range Interpretation Comments PHOSPHORUS (BEAKER) (test code = 3.9 mg/dL 2.3-4.7 604) House Nurse ID - [id number] 21:29:00 Test Item Value Reference Range Interpretation Comments MAGNESIUM (BEAKER) (test code = 2.5 mg/dL 1.6-2.6 627) House Nurse ID - BSBASIC METABOLIC [id number] 21:29:00 Test Item Value Reference Range Interpretation Comments SODIUM (BEAKER) 145 meq/L 136-145 (test code = 381) POTASSIUM (BEAKER) 4.1 meq/L 3.5-5.1 (test code = 379) CHLORIDE (BEAKER) 114 meq/L 98-107 H (test code = 382) CO2 (BEAKER) (test 24 meq/L 22-29 code = 355) BLOOD UREA NITROGEN 32 mg/dL 7-21 H (BEAKER) (test code = 354) CREATININE (BEAKER) 1.21 mg/dL 0.57-1.25 (test code = 358) GLUCOSE RANDOM 171 mg/dL 70-105 H (BEAKER) (test code = 652) CALCIUM (BEAKER) 8.1 mg/dL 8.4-10.2 L (test code = 697) EGFR (BEAKER) (test 43 mL/min/1.73 ESTIMA GHAZAL GFR IS code = 1092) sq m NOT ACCURATE CREATININE CLEARANCE IN PREDICTING GLOMERULAR FILTRATION RATE . ESTIMATED GFR I S NOT APPLICABLE FOR DIALYSIS PATIEN TS. House Nurse ID - BSLACTIC ACID, [id number] 21:22:00 Test Item Value Reference Range Interpretation Comments LACTATE BLOOD ARTERIAL (2) 1.4 mmol/L 0.5-2.2 (BEAKER) (test code = 2874) House Nurse ID - BSPT/[id number] 21:21:00 Test Item Value Reference Range Interpretation Comments PROTIME (BEAKER) (test code = 15.6 seconds 11.9-14.2 H 759) INR (BEAKER) (test code = 370) 1.3 <=5.9 PARTIAL THROMBOPLASTIN TIME 30.1 seconds 22.5-36.0 (BEAKER) (test code = 760) Effective 09/03/2018: PT Reference Range ChangeNew: 11.9-14.2 Previous: 11.7- 14.7RECOMMENDED COUMADIN/WARFARIN INR THERAPY RANGESSTANDARD DOSE: 2.0-3.0 Includes: PROPHYLAXIS for venous thrombosis, systemic embolization; TREATMENT for venous thrombosis and/or pulmonary embolus.HIGH RISK: Target INR is2.5-3.5 for patients wiht mechanical heart valves.BLOOD GAS, [id number] 21:16:00 Test Item Value Reference Range Interpretation Comments PH ARTERIAL (BEAKER) (test code = 7.37 7.35-7.45 383) PCO2 ARTERIAL (BEAKER) (test code 43 mmHg 35-45 = 384) PO2 ARTERIAL (BEAKER) (test code 186 mmHg 80-90 H = 385) O2 SATURATION ARTERIAL (BEAKER) 99.2 % 96.0-97.0 H (test code = 386) HCO3 ARTERIAL (BEAKER) (test code 24 mmol/L 21-29 = 388) BASE EXCESS ARTERIAL (BEAKER) -0.9 mmol/L -2.0-3.0 (test code = 387) PATIENT TEMPERATURE (BEAKER) 36.9 C (test code = 1818) FIO2 (BEAKER) (test code = 1819) 36.0 % CALCIUM, [id number] 21:13:00 Test Item Value Reference Range Interpretation Comments CALCIUM IONIZED (BEAKER) (test 1.08 mmol/L 1.12-1.27 L code = 698) PH, BLOOD (BEAKER) (test code = 7.37 1810) OXYGEN SATURATION, [id number] 21:12:00 Test Item Value Reference Range Interpretation Comments O2 SATURATION (MEASURED) (BEAKER) 97.0 % (test code = 1455) CBC (HEMOGRAM ONLY)2019-09-14 21:12:00 Test Item Value Reference Range Interpretation Comments WHITE BLOOD CELL COUNT (BEAKER) 14.9 K/ L 3.5-10.5 H (test code = 775) RED BLOOD CELL COUNT (BEAKER) 2.92 M/ L 3.93-5.22 L (test code = 761) HEMOGLOBIN (BEAKER) (test code = 8.8 GM/DL 11.2-15.7 L 410) HEMATOCRIT (BEAKER) (test code = 27.0 % 34.1-44.9 L 411) MEAN CORPUSCULAR VOLUME (BEAKER) 92.5 fL 79.4-94.8 (test code = 753) MEAN CORPUSCULAR HEMOGLOBIN 30.1 pg 25.6-32.2 (BEAKER) (test code = 751) MEAN CORPUSCULAR HEMOGLOBIN CONC 32.6 GM/DL 32.2-35.5 (BEAKER) (test code = 752) RED CELL DISTRIBUTION WIDTH 13.3 % 11.7-14.4 (BEAKER) (test code = 412) PLATELET COUNT (BEAKER) (test 124 K/CU MM 150-450 L code = 756) MEAN PLATELET VOLUME (BEAKER) 10.5 fL 9.4-12.3 (test code = 754) NUCLEATED RED BLOOD CELLS 0 /100 WBC 0-0 (BEAKER) (test code = 413) LACTIC ACID, [id number] 19:08:00 Test Item Value Reference Range Interpretation Comments LACTATE BLOOD 1.0 mmol/L 0.5-2.2 Specimen sligh tly ARTERIAL (2) (BEAKER) hemoly zed (test code = 2874) House Nurse ID - DBPOCT-GLUCOSE [id number] 19:03:00 Test Item Value Reference Range Interpretation Comments POC-GLUCOSE METER 168 mg/dL 70-110 H : TESTED A T [facility] 6720 (BEAKER) (test code = [facility], 1538) 02672: House Nurse/Techni santana ID = [id number] for CE RVANTES, PRIYANKA HGB/HCT (H&H)-Stat [id number] 18:57:00 Test Item Value Reference Range Interpretation Comments Hemoglobin (test code = 786-4) 9.0 g/dL 12-15 L Hematocrit (test code = 4544-3) 26.0 % 36-45 L Lab Interpretation (test code = Abnormal 34281-1) [facility], [id number] 18:57:00 Test Item Value Reference Range Interpretation Comments PH ARTERIAL (BEAKER) (test code = 7.39 7.35-7.45 383) PCO2 ARTERIAL (BEAKER) (test code 38 mmHg 35-45 = 384) PO2 ARTERIAL (BEAKER) (test code 165 mmHg 80-90 H = 385) O2 SATURATION ARTERIAL (BEAKER) 99.1 % 96.0-97.0 H (test code = 386) HCO3 ARTERIAL (BEAKER) (test code 22 mmol/L 21-29 = 388) BASE EXCESS ARTERIAL (BEAKER) -2.4 mmol/L -2.0-3.0 L (test code = 387) PATIENT TEMPERATURE (BEAKER) 36.9 C (test code = 1818) FIO2 (BEAKER) (test code = 1819) 40.0 % HGB/HCT (H&H) - STAT [id number] 18:57:00 Test Item Value Reference Range Interpretation Comments HEMOGLOBIN (BEAKER) (test code = 9.0 g/dL 12.0-15.0 L 410) HEMATOCRIT (BEAKER) (test code = 26.0 % 36.0-45.0 L 411) POCT-GLUCOSE [id number] 18:23:00 Test Item Value Reference Range Interpretation Comments POC-GLUCOSE METER 167 mg/dL 70-110 H : TESTED A T [facility] 6720 (BEAKER) (test code = [facility] [place], 1538) 65895: House Nurse/Techni santana ID = [id number] for KELSEA SANDS BASIC METABOLIC [id number] 17:34:00 Test Item Value Reference Range Interpretation Comments SODIUM (BEAKER) 138 meq/L 136-145 (test code = 381) POTASSIUM (BEAKER) 4.7 meq/L 3.5-5.1 Specimen slightly (test code = 379) hemolyzed CHLORIDE (BEAKER) 113 meq/L 98-107 H (test code = 382) CO2 (BEAKER) (test 17 meq/L 22-29 L code = 355) BLOOD UREA NITROGEN 32 mg/dL 7-21 H (BEAKER) (test code = 354) CREATININE (BEAKER) 1.14 mg/dL 0.57-1.25 Specimen slightly (test code = 358) hemolyzed GLUCOSE RANDOM 221 mg/dL 70-105 H (BEAKER) (test code = 652) CALCIUM (BEAKER) 8.3 mg/dL 8.4-10.2 L (test code = 697) EGFR (BEAKER) (test 46 mL/min/1.73 ESTIMA GHAZAL GFR IS code = 1092) sq m NOT ACCURATE CREATININE CLEARANCE IN PREDICTING GLOMERULAR FILTRATION RATE . ESTIMATED GFR I S NOT APPLICABLE FOR DIALYSIS PATIEN TS. House Nurse ID - [id number]-[id number] 16:37:00 Test Item Value Reference Range Interpretation Comments Glucose (test code = 2345-7) 218 mg/dL 70-105 H KAILA (test code = KAILA) House Nurse ID - BS Lab Interpretation (test Abnormal code = 88111-4) [facility] CenterPotassium-[id number] 16:37:00 Test Item Value Reference Range Interpretation Comments Potassium (test code = 4.6 meq/L 3.5-5.1 Speci men 2823-3) slightly hemolyzed KAILA (test code = KAILA) House Nurse ID - BS Lab Interpretation Normal (test code = 86596-8) [facility] Center[facility]OT[facility]UM2020-06-08 16:37:00 Test Item Value Reference Range Interpretation Comments POTASSIUM (BEAKER) 4.6 meq/L 3.5-5.1 Specimen slightly (test code = 379) hemolyzed House Nurse ID - [id number] 16:37:00 Test Item Value Reference Range Interpretation Comments GLUCOSE RANDOM (BEAKER) (test code 218 mg/dL 70-105 H = 652) House Nurse ID - [id number] 16:12:00 Test Item Value Reference Range Interpretation Comments MAGNESIUM (BEAKER) 2.5 mg/dL 1.6-2.6 Specimen slightly (test code = 627) hemolyzed House Nurse ID - [id number] 16:12:00 Test Item Value Reference Range Interpretation Comments PHOSPHORUS (BEAKER) 3.3 mg/dL 2.3-4.7 Specimen slightly (test code = 604) hemolyzed House Nurse ID - BSLACTIC ACID, [id number] 16:09:00 Test Item Value Reference Range Interpretation Comments LACTATE BLOOD 1.0 mmol/L 0.5-2.2 Specimen sligh tly ARTERIAL (2) (BEAKER) hemoly zed (test code = 2874) House Nurse ID - [id number] 16:05:00 Test Item Value Reference Range Interpretation Comments Fibrinogen (test code = 3255-7) 270 mg/dl 225-434 Lab Interpretation (test code = Normal 18728-3) [facility] CenteraPTT2020-06-[facility] 16:05:00 Test Item Value Reference Range Interpretation Comments PTT (test code = 82641-8) 28.7 22.5- 36.0 seconds Lab Interpretation (test code = Normal 28440-0) [facility] CenterFIBRINOGEN2020-06-08 16:05:00 Test Item Value Reference Range Interpretation Comments FIBRINOGEN LEVEL (BEAKER) (test 270 mg/dl 225-434 code = 658) PT/[id number] 16:05:00 Test Item Value Reference Range Interpretation Comments PROTIME (BEAKER) (test code = 17.3 seconds 11.9-14.2 H 759) INR (BEAKER) (test code = 370) 1.5 <=5.9 PARTIAL THROMBOPLASTIN TIME 28.7 seconds 22.5-36.0 (BEAKER) (test code = 760) Effective 09/03/2018: PT Reference Range ChangeNew: 11.9-14.2 Previous: 11.7- 14.7RECOMMENDED COUMADIN/WARFARIN INR THERAPY RANGESSTANDARD DOSE: 2.0-3.0 Includes: PROPHYLAXIS for venous thrombosis, systemic embolization; TREATMENT for venous thrombosis and/or pulmonary embolus.HIGH RISK: Target INR is2.5-3.5 for patients wiht mechanical heart valves.[id number] 16:05:00 Test Item Value Reference Range Interpretation Comments PARTIAL THROMBOPLASTIN TIME 28.7 seconds 22.5-36.0 (BEAKER) (test code = 760) Prothromin time/[id number] 16:04:00 Test Item Value Reference Range Interpretation Comments Protime (test code = 17.3 11.9- 14.2 H 5902-2) seconds INR (test code = 1.5 <=5.9 6301-6) KAILA (test code = KAILA) Effective 09/03/2018: PT Reference Range ChangeNew: 11.9-14.2 Previous: 11.7-14.7 RECOMMENDED COUMADIN/WARFARIN INR THERAPY RANGESSTANDARD DOSE: 2.0-3.0 Includes: PROPHYLAXIS for venous thrombosis, systemic embolization; TREATMENT for venous thrombosis and/or pulmonary embolus.HIGH RISK: Target INR is 2.5-3.5 for patients wiht mechanical heart valves. Lab Interpretation Abnormal (test code = 93396-6) [facility] CenterPROTHROMBIN TIME/[id number] 16:04:00 Test Item Value Reference Range Interpretation Comments PROTIME (BEAKER) (test code = 17.3 seconds 11.9-14.2 H 759) INR (BEAKER) (test code = 370) 1.5 <=5.9 Effective 09/03/2018: PT Reference Range ChangeNew: 11.9-14.2 Previous: 11.7- 14.7RECOMMENDED COUMADIN/WARFARIN INR THERAPY RANGESSTANDARD DOSE: 2.0-3.0 Includes: PROPHYLAXIS for venous thrombosis, systemic embolization; TREATMENT for venous thrombosis and/or pulmonary embolus.HIGH RISK: Target INR is2.5-3.5 for patients wiht mechanical heart valves.CBC W/PLT COUNT & AUTO [id number] 15:57:00 Test Item Value Reference Range Interpretation Comments WHITE BLOOD CELL COUNT (BEAKER) 11.2 K/ L 3.5-10.5 H (test code = 775) RED BLOOD CELL COUNT (BEAKER) 3.26 M/ L 3.93-5.22 L (test code = 761) HEMOGLOBIN (BEAKER) (test code = 10.1 GM/DL 11.2-15.7 L 410) HEMATOCRIT (BEAKER) (test code = 30.1 % 34.1-44.9 L 411) MEAN CORPUSCULAR VOLUME (BEAKER) 92.3 fL 79.4-94.8 (test code = 753) MEAN CORPUSCULAR HEMOGLOBIN 31.0 pg 25.6-32.2 (BEAKER) (test code = 751) MEAN CORPUSCULAR HEMOGLOBIN CONC 33.6 GM/DL 32.2-35.5 (BEAKER) (test code = 752) RED CELL DISTRIBUTION WIDTH 13.3 % 11.7-14.4 (BEAKER) (test code = 412) PLATELET COUNT (BEAKER) (test code 95 K/CU MM 150-450 L = 756) MEAN PLATELET VOLUME (BEAKER) 10.7 fL 9.4-12.3 (test code = 754) NUCLEATED RED BLOOD CELLS (BEAKER) 0 /100 WBC 0-0 (test code = 413) NEUTROPHILS RELATIVE PERCENT 80 % (BEAKER) (test code = 429) LYMPHOCYTES RELATIVE PERCENT 8 % (BEAKER) (test code = 430) MONOCYTES RELATIVE PERCENT 8 % (BEAKER) (test code = 431) EOSINOPHILS RELATIVE PERCENT 3 % (BEAKER) (test code = 432) BASOPHILS RELATIVE PERCENT 0 % (BEAKER) (test code = 437) NEUTROPHILS ABSOLUTE COUNT 8.98 K/ L 1.56-6.13 H (BEAKER) (test code = 670) LYMPHOCYTES ABSOLUTE COUNT 0.94 K/ L 1.18-3.74 L (BEAKER) (test code = 414) MONOCYTES ABSOLUTE COUNT (BEAKER) 0.85 K/ L 0.24-0.36 H (test code = 415) EOSINOPHILS ABSOLUTE COUNT 0.29 K/ L 0.04-0.36 (BEAKER) (test code = 416) BASOPHILS ABSOLUTE COUNT (BEAKER) 0.05 K/ L 0.01-0.08 (test code = 417) IMMATURE GRANULOCYTES-RELATIVE 1 % 0-1 PERCENT (BEAKER) (test code = 2801) RAD, CHEST, 1 VIEW, NON [id number] 15:56:00Reason for exam:->Status post CV Surgery post op day 0Should this be performed at the bedside?->YesFINAL REPORT CLINICAL HISTORY: Status post CV Surgery post op day 0 TECHNIQUE: 1 view of the chest. COMPARISON: 09/12/2019 IMPRESSION: There are new sternotomy wires. There is a new ETT terminating 1 cm above the renan. There is a new right jugular line in the SVC. There is a new nasogastric tube below the diaphragm. There are two new left lower chest tubes. There is new left hemithorax volume loss with diffuse left lung opacity. A left-sided pneumothorax is also suspected. There is mild left chest wall subcutaneous emphysema. The cardiomediastinal silhouette is shifted into the left chest. The right lung is free of infiltrates or effusions. Signed: Tiara Dunlap MDReport Verified Date/Time: 09/14/2019 15:56:42 Reading Location: [facility] Radiology Reading Room Platelet [id number] 15:53:00 Test Item Value Reference Range Interpretation Comments Platelets (test code = 95 150- 450 K/CU MM L 777-3) KAILA (test code = KAILA) House Nurse ID - [id number] Lab Interpretation (test Abnormal code = 36652-2) [facility] CenterPLATELET [id number] 15:53:00 Test Item Value Reference Range Interpretation Comments PLATELET COUNT (BEAKER) (test code 95 K/CU MM 150-450 L = 756) House Nurse ID - [id number]-Stat [id number] 15:43:00 Test Item Value Reference Range Interpretation Comments Glucose (test code = 2345-7) 221 mg/dL 70-110 H Lab Interpretation (test code = Abnormal 52305-6) [facility] [id number] 15:43:00 Test Item Value Reference Range Interpretation Comments Sodium (test code = 2951-2) 136 meq/L 136-145 Lab Interpretation (test code = Normal 49788-7) [facility] Center[facility]Stat [id number] 15:43:00 Test Item Value Reference Range Interpretation Comments Potassium (test code = 2823-3) 4.5 meq/L 3.6-5.5 Lab Interpretation (test code = Normal 91382-4) [facility] [id number] 15:43:00 Test Item Value Reference Range Interpretation Comments SODIUM (BEAKER) (test code = 381) 136 meq/L 136-145 POTASSIUM-STAT [id number] 15:43:00 Test Item Value Reference Range Interpretation Comments POTASSIUM (BEAKER) (test code = 4.5 meq/L 3.6-5.5 379) HGB/HCT (H&H) - STAT [id number] 15:43:00 Test Item Value Reference Range Interpretation Comments HEMOGLOBIN (BEAKER) (test code = 10.2 g/dL 12.0-15.0 L 410) HEMATOCRIT (BEAKER) (test code = 30.0 % 36.0-45.0 L 411) BLOOD GAS, [id number] 15:43:00 Test Item Value Reference Range Interpretation Comments PH ARTERIAL (BEAKER) (test code = 7.38 7.35-7.45 383) PCO2 ARTERIAL (BEAKER) (test code 34 mmHg 35-45 L = 384) PO2 ARTERIAL (BEAKER) (test code 135 mmHg 80-90 H = 385) O2 SATURATION ARTERIAL (BEAKER) 98.8 % 96.0-97.0 H (test code = 386) HCO3 ARTERIAL (BEAKER) (test code 20 mmol/L 21-29 L = 388) BASE EXCESS ARTERIAL (BEAKER) -4.7 mmol/L -2.0-3.0 L (test code = 387) PATIENT TEMPERATURE (BEAKER) 35.2 C (test code = 1818) FIO2 (BEAKER) (test code = 1819) 50.0 % GLUCOSE-STAT [id number] 15:43:00 Test Item Value Reference Range Interpretation Comments GLUCOSE RANDOM (BEAKER) (test code 221 mg/dL 70-110 H = 652) BASIC METABOLIC [id number] 15:43:00 Test Item Value Reference Range Interpretation Comments SODIUM (BEAKER) 138 meq/L 136-145 (test code = 381) POTASSIUM (BEAKER) 4.2 meq/L 3.5-5.1 (test code = 379) CHLORIDE (BEAKER) 109 meq/L 98-107 H (test code = 382) CO2 (BEAKER) (test 21 meq/L 22-29 L code = 355) BLOOD UREA NITROGEN 41 mg/dL 7-21 H (BEAKER) (test code = 354) CREATININE (BEAKER) 1.44 mg/dL 0.57-1.25 H (test code = 358) GLUCOSE RANDOM 98 mg/dL 70-105 (BEAKER) (test code = 652) CALCIUM (BEAKER) 8.8 mg/dL 8.4-10.2 (test code = 697) EGFR (BEAKER) (test 35 mL/min/1.73 ESTIMA GHAZAL GFR IS code = 1092) sq m NOT ACCURATE CREATININE CLEARANCE IN PREDICTING GLOMERULAR FILTRATION RATE . ESTIMATED GFR I S NOT APPLICABLE FOR DIALYSIS PATIEN TS. House Nurse ID - [id number] 15:42:00 Test Item Value Reference Range Interpretation Comments PHOSPHORUS (BEAKER) (test code = 3.9 mg/dL 2.3-4.7 604) House Nurse ID - BSOXYGEN SATURATION, [id number] 15:41:00 Test Item Value Reference Range Interpretation Comments O2 SATURATION (MEASURED) (BEAKER) 78.0 % (test code = 1455) CALCIUM, [id number] 15:41:00 Test Item Value Reference Range Interpretation Comments CALCIUM IONIZED (BEAKER) (test 1.15 mmol/L 1.12-1.27 code = 698) PH, BLOOD (BEAKER) (test code = 7.36 1810) POC ACTIVATED CLOTTING [id number] 14:22:00 Test Item Value Reference Range Interpretation Comments Activated Clotting Time 109 sec : 74 -137 seconds, (test code = 441) Baseline: TESTED AT [address], [facility] 30: House Nurse/Techni santana ID = [id number] for NG VERÓNICA, [facility]ICA [id number] 14:22:00 Test Item Value Reference Range Interpretation Comments ACTIVATED CLOTTING TIME 109 sec : 74 -137 seconds, (BEAKER) (test code = Baseli ne: TESTED AT 441) [address], [facility] 30: House Nurse/Techni santana ID = [id number] for NG VERÓNICA, VERONICA [id number] 14:22:00 Test Item Value Reference Range Interpretation Comments ACTIVATED CLOTTING TIME 621 sec : 74 -137 seconds, (BEAKER) (test code = Baseli ne: TESTED AT 441) [address], [facility] 30: House Nurse/Techni santana ID = [id number] for NG VERÓNICA, VERONICA [id number] 14:22:00 Test Item Value Reference Range Interpretation Comments ACTIVATED CLOTTING TIME 505 sec : 74 -137 seconds, (BEAKER) (test code = Baseli ne: TESTED AT 441) [address], [facility] 30: House Nurse/Techni santana ID = [id number] for NG VERÓNICA, VERONICA [id number] 14:22:00 Test Item Value Reference Range Interpretation Comments ACTIVATED CLOTTING TIME 406 sec : 74 -137 seconds, (BEAKER) (test code = Baseli ne: TESTED AT 441) [address], [facility] 30: House Nurse/Techni santana ID = [id number] for NG VERÓNICA, VERONICA BLOOD GAS, [id number] 14:16:00 Test Item Value Reference Range Interpretation Comments PH ARTERIAL (BEAKER) (test code = 7.47 7.35-7.45 H 383) PCO2 ARTERIAL (BEAKER) (test code 29 mmHg 35-45 L = 384) PO2 ARTERIAL (BEAKER) (test code 376 mmHg 80-90 H = 385) O2 SATURATION ARTERIAL (BEAKER) 99.8 % 96.0-97.0 H (test code = 386) HCO3 ARTERIAL (BEAKER) (test code 21 mmol/L 21-29 = 388) BASE EXCESS ARTERIAL (BEAKER) -2.9 mmol/L -2.0-3.0 L (test code = 387) PATIENT TEMPERATURE (BEAKER) 36.0 C (test code = 1818) FIO2 (BEAKER) (test code = 1819) 100.0 % SODIUM NA-STAT [id number] 14:16:00 Test Item Value Reference Range Interpretation Comments SODIUM (BEAKER) (test code = 381) 133 meq/L 136-145 L GLUCOSE-STAT [id number] 14:16:00 Test Item Value Reference Range Interpretation Comments GLUCOSE RANDOM (BEAKER) (test code 203 mg/dL 70-110 H = 652) HGB/HCT (H&H) - STAT [id number] 14:16:00 Test Item Value Reference Range Interpretation Comments HEMOGLOBIN (BEAKER) (test code = 8.8 g/dL 12.0-15.0 L 410) HEMATOCRIT (BEAKER) (test code = 26.0 % 36.0-45.0 L 411) POTASSIUM-STAT [id number] 14:15:00 Test Item Value Reference Range Interpretation Comments POTASSIUM (BEAKER) (test code = 4.8 meq/L 3.6-5.5 379) BLOOD GAS, [id number] 13:46:00 Test Item Value Reference Range Interpretation Comments PH ARTERIAL (BEAKER) (test code = 7.48 7.35-7.45 H 383) PCO2 ARTERIAL (BEAKER) (test code 28 mmHg 35-45 L = 384) PO2 ARTERIAL (BEAKER) (test code 390 mmHg 80-90 H = 385) O2 SATURATION ARTERIAL (BEAKER) 99.8 % 96.0-97.0 H (test code = 386) HCO3 ARTERIAL (BEAKER) (test code 21 mmol/L 21-29 = 388) BASE EXCESS ARTERIAL (BEAKER) -2.5 mmol/L -2.0-3.0 L (test code = 387) PATIENT TEMPERATURE (BEAKER) 35.8 C (test code = 1818) FIO2 (BEAKER) (test code = 1819) 100.0 % GLUCOSE-STAT [id number] 13:46:00 Test Item Value Reference Range Interpretation Comments GLUCOSE RANDOM (BEAKER) (test code 216 mg/dL 70-110 H = 652) HGB/HCT (H&H) - STAT [id number] 13:46:00 Test Item Value Reference Range Interpretation Comments HEMOGLOBIN (BEAKER) (test code = 7.2 g/dL 12.0-15.0 L 410) HEMATOCRIT (BEAKER) (test code = 21.0 % 36.0-45.0 L 411) SODIUM NA-STAT [id number] 13:45:00 Test Item Value Reference Range Interpretation Comments SODIUM (BEAKER) (test code = 381) 135 meq/L 136-145 L POTASSIUM-STAT [id number] 13:45:00 Test Item Value Reference Range Interpretation Comments POTASSIUM (BEAKER) (test code = 5.0 meq/L 3.6-5.5 379) POTASSIUM-STAT [id number] 13:11:00 Test Item Value Reference Range Interpretation Comments POTASSIUM (BEAKER) (test code = 5.4 meq/L 3.6-5.5 379) BLOOD GAS, [id number] 13:11:00 Test Item Value Reference Range Interpretation Comments PH ARTERIAL (BEAKER) (test code = 7.36 7.35-7.45 383) PCO2 ARTERIAL (BEAKER) (test code 37 mmHg 35-45 = 384) PO2 ARTERIAL (BEAKER) (test code 296 mmHg 80-90 H = 385) O2 SATURATION ARTERIAL (BEAKER) 99.7 % 96.0-97.0 H (test code = 386) HCO3 ARTERIAL (BEAKER) (test code 22 mmol/L 21-29 = 388) BASE EXCESS ARTERIAL (BEAKER) -4.3 mmol/L -2.0-3.0 L (test code = 387) PATIENT TEMPERATURE (BEAKER) 32.0 C (test code = 1818) FIO2 (BEAKER) (test code = 1819) 60.0 % GLUCOSE-STAT [id number] 13:11:00 Test Item Value Reference Range Interpretation Comments GLUCOSE RANDOM (BEAKER) (test code 209 mg/dL 70-110 H = 652) SODIUM NA-STAT [id number] 13:11:00 Test Item Value Reference Range Interpretation Comments SODIUM (BEAKER) (test code = 381) 132 meq/L 136-145 L HGB/HCT (H&H) - STAT [id number] 13:11:00 Test Item Value Reference Range Interpretation Comments HEMOGLOBIN (BEAKER) (test code = 6.7 g/dL 12.0-15.0 L 410) HEMATOCRIT (BEAKER) (test code = 20.0 % 36.0-45.0 L 411) BLOOD GAS, [id number] 12:53:00 Test Item Value Reference Range Interpretation Comments PH ARTERIAL (BEAKER) (test code = 7.34 7.35-7.45 L 383) PCO2 ARTERIAL (BEAKER) (test code 39 mmHg 35-45 = 384) PO2 ARTERIAL (BEAKER) (test code 328 mmHg 80-90 H = 385) O2 SATURATION ARTERIAL (BEAKER) 99.7 % 96.0-97.0 H (test code = 386) HCO3 ARTERIAL (BEAKER) (test code 22 mmol/L 21-29 = 388) BASE EXCESS ARTERIAL (BEAKER) -5.2 mmol/L -2.0-3.0 L (test code = 387) PATIENT TEMPERATURE (BEAKER) 31.2 C (test code = 1818) FIO2 (BEAKER) (test code = 1819) 60.0 % GLUCOSE-STAT [id number] 12:53:00 Test Item Value Reference Range Interpretation Comments GLUCOSE RANDOM (BEAKER) (test code 207 mg/dL 70-110 H = 652) SODIUM NA-STAT [id number] 12:53:00 Test Item Value Reference Range Interpretation Comments SODIUM (BEAKER) (test code = 381) 132 meq/L 136-145 L HGB/HCT (H&H) - STAT [id number] 12:53:00 Test Item Value Reference Range Interpretation Comments HEMOGLOBIN (BEAKER) (test code = 6.2 g/dL 12.0-15.0 L 410) HEMATOCRIT (BEAKER) (test code = 18.0 % 36.0-45.0 L 411) POTASSIUM-STAT [id number] 12:52:00 Test Item Value Reference Range Interpretation Comments POTASSIUM (BEAKER) (test code = 4.9 meq/L 3.6-5.5 379) SODIUM NA-STAT [id number] 11:16:00 Test Item Value Reference Range Interpretation Comments SODIUM (BEAKER) (test code = 381) 137 meq/L 136-145 POTASSIUM-STAT [id number] 11:16:00 Test Item Value Reference Range Interpretation Comments POTASSIUM (BEAKER) (test code = 4.1 meq/L 3.6-5.5 379) BLOOD GAS, [id number] 11:16:00 Test Item Value Reference Range Interpretation Comments PH ARTERIAL (BEAKER) (test code = 7.40 7.35-7.45 383) PCO2 ARTERIAL (BEAKER) (test code 32 mmHg 35-45 L = 384) PO2 ARTERIAL (BEAKER) (test code 420 mmHg 80-90 H = 385) O2 SATURATION ARTERIAL (BEAKER) 99.8 % 96.0-97.0 H (test code = 386) HCO3 ARTERIAL (BEAKER) (test code 20 mmol/L 21-29 L = 388) BASE EXCESS ARTERIAL (BEAKER) -4.9 mmol/L -2.0-3.0 L (test code = 387) PATIENT TEMPERATURE (BEAKER) 36.0 C (test code = 1818) FIO2 (BEAKER) (test code = 1819) 100.0 % GLUCOSE-STAT [id number] 11:16:00 Test Item Value Reference Range Interpretation Comments GLUCOSE RANDOM (BEAKER) (test code 127 mg/dL 70-110 H = 652) HGB/HCT (H&H) - STAT [id number] 11:16:00 Test Item Value Reference Range Interpretation Comments HEMOGLOBIN (BEAKER) (test code = 9.8 g/dL 12.0-15.0 L 410) HEMATOCRIT (BEAKER) (test code = 29.0 % 36.0-45.0 L 411) 2D Echo W/Doppler(CW/PW/Color)2019-09-14 09:36:25Ejection FractionSLEH ECHO HEARTLAB MKCKESSON CPACSInterface, External Ris In - 09/14/2019 9:36 AM C DTTransthoracic Echocardiography Report (TTE) Demographics Patient Name MIRIAM GARCIAASIYA Date of Study 09/13/2019 Gender Female Visit Number [id number] Race Room Number SCPR Number Date of 1940 Referring Physician Jaden Zayas Age 78 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 Amount - 2 mlHeight: 62 inches Weight: 73.03 kg (161 lbs) BSA: 1.74 m^2 BMI: 29.45 kg/m^2HR: 50 bpm BP: 140/60 mmHg Summary The left ventricle is chamber size (by PSLAX dimension) is normal (female - LVIDd 3.8-5.2cm) . All of the LV segments contract normally . Estimated LVEF by qualitative assessment is normal (55-60%) . Normal diastolic function. Estimated peak systolic PA pressure is 25- 30 mmHg (normal range) . Previous Study No prior exam available for comparison. Signature Findings Left Ventricle The left ventricle is chamber size (by PSLAX dimension) is normal (female - LVIDd 3.8-5.2cm) . LV septal thickness is normal (0.6-1.1cm). LV posterior wall thickness is mildly increased (1.2-1.4cm) . All of the LV segments contract normally . Global LV systolic function normal . Estimated LVEF by qualitative assessment is normal (55-60%) . Normal diastolic function. Left Atrium LA size is normal (16-34 ml/m2) . Right Ventricle The right ventricular chamber size and systolic function are within normal limits. Right Atrium RA cavity size is normal . Aortic Valve Mild AoV cusp thickening. AoV cusp mobility is normal . Mitral Valve Mild MV leaflet thickening. Mild mitral annular calcification. Tricuspid Valve A trace of tricuspid regurgitation. Estimated peak systolic PA pressure is 25-30 mmHg (normal range) . Pulmonic Valve Normal PV structure and function. Aorta Aortic root size (SInus of Valsalva diameter) is normal . Pericardium No significant pericardial effusion is visualized. IVC/SVC/PA/PV/Pleural The right upper pulmonary vein (RUPV) is normal . The estimated RA pressure by IVC dynamics 5-10mmHg . Chambers/Structures Left Atrium LA Volume: 55.07 ml LA Area: 19.33 cm^2 LAVol. Index: 32 ml/m^2 Left Ventricle LVIDd: 4.53 cm LVEDV:108.49 ml LV Septum Diastolic: 0.9 cm LV PW Diastolic: 1.4 cm LVOT Diameter: 1.99 cm Right Ventricle RVOT VTI: 17.87 cm TAPSE: 2.85 cm Aorta Ao Root S of Rosette.: 2.8 cm Doppler/Quantitative Measurements Mitral Valve MV Peak E-Wave: 0.86 m/s MV Peak A-Wave: 0.83 m/s E/A Ratio: 1.04 Peak Gradient: 2.95 mmHg Deceleration Time: 228.8 msec MV Joseluis. Peak:Tissue Doppler E' Septal Velocity: 0.07 m/s E/E': 12.92 E' Lateral Velocity: 0.07 m/s Aortic Valve Peak Velocity: 1.03 m/s Mean Velocity: 0.72 m/s Peak Gradient: 4.23 mmHg Mean Gradient: 2.36 mmHg AV Area (continuity): 3.1 cm^2 AV VTI: 24.39 cm AV DVI: 1 LVOT Peak Velocity: 0.92 m/s Peak Gradient: 3.41 mmHg Mean Velocity: 0.62 m/s Mean Gradient: 1.79 mmHg LVOT Diameter: 1.99 cm LVOT VTI: 24.3 cm LVOT Area: 3.11 cm^2 LVOT SV:75.54 ml LVOT CO: 3.78 l/min LVOT CI: 2.17 l/min/m^2 Tricuspid Valve TR Velocity: 2.33 m/s TR Gradient: 21.72 mmHg [facility] CenterCOMPREHENSIVE METABOL[facility] [id number] 06:32:00 Test Item Value Reference Range Interpretation Comments TOTAL PROTEIN 6.2 gm/dL 6.0-8.3 (BEAKER) (test code = 770) ALBUMIN (BEAKER) 3.5 g/dL 3.5-5.0 (test code = 1145) ALKALINE PHOSPHATASE 8 U/L 40-150 L (BEAKER) (test code = 346) BILIRUBIN TOTAL 0.2 mg/dL 0.2-1.2 (BEAKER) (test code = 377) SODIUM (BEAKER) (test 139 meq/L 136-145 code = 381) POTASSIUM (BEAKER) 4.2 meq/L 3.5-5.1 (test code = 379) CHLORIDE (BEAKER) 109 meq/L 98-107 H (test code = 382) CO2 (BEAKER) (test 22 meq/L 22-29 code = 355) BLOOD UREA NITROGEN 40 mg/dL 7-21 H (BEAKER) (test code = 354) CREATININE (BEAKER) 1.43 mg/dL 0.57-1.25 H (test code = 358) GLUCOSE RANDOM 99 mg/dL 70-105 (BEAKER) (test code = 652) CALCIUM (BEAKER) 8.7 mg/dL 8.4-10.2 (test code = 697) AST (SGOT) (BEAKER) 16 U/L 5-34 (test code = 353) ALT (SGPT) (BEAKER) 12 U/L 6-55 (test code = 347) EGFR (BEAKER) (test 35 mL/min/1.73 ESTIMA GHAZAL GFR IS code = 1092) sq m NOT ACCURATE CREATININE CLEARANCE IN PREDICTING GLOMERULAR FILTRATION RATE . ESTIMATED GFR I S NOT APPLICABLE FOR DIALYSIS PATIEN TS. House Nurse ID - DANO [id number] 05:51:00 Test Item Value Reference Range Interpretation Comments MAGNESIUM (BEAKER) (test code = 2.1 mg/dL 1.6-2.6 627) House Nurse ID - DANO [id number] 05:50:00 Test Item Value Reference Range Interpretation Comments MAGNESIUM (BEAKER) (test code = 2.1 mg/dL 1.6-2.6 627) House Nurse ID - DANO MBASIC METABOLIC [id number] 05:50:00 Test Item Value Reference Range Interpretation Comments SODIUM (BEAKER) 139 meq/L 136-145 (test code = 381) POTASSIUM (BEAKER) 4.2 meq/L 3.5-5.1 (test code = 379) CHLORIDE (BEAKER) 109 meq/L 98-107 H (test code = 382) CO2 (BEAKER) (test 22 meq/L 22-29 code = 355) BLOOD UREA NITROGEN 40 mg/dL 7-21 H (BEAKER) (test code = 354) CREATININE (BEAKER) 1.43 mg/dL 0.57-1.25 H (test code = 358) GLUCOSE RANDOM 99 mg/dL 70-105 (BEAKER) (test code = 652) CALCIUM (BEAKER) 8.7 mg/dL 8.4-10.2 (test code = 697) EGFR (BEAKER) (test 35 mL/min/1.73 ESTIMA GHAZAL GFR IS code = 1092) sq m NOT ACCURATE CREATININE CLEARANCE IN PREDICTING GLOMERULAR FILTRATION RATE . ESTIMATED GFR I S NOT APPLICABLE FOR DIALYSIS PATIEN [id number] 05:03:00 Test Item Value Reference Range Interpretation Comments PARTIAL THROMBOPLASTIN TIME 89.6 seconds 22.5-36.0 H (BEAKER) (test code = 760) CBC W/PLT COUNT & AUTO [id number] 04:53:00 Test Item Value Reference Range Interpretation Comments WHITE BLOOD CELL COUNT (BEAKER) 6.7 K/ L 3.5-10.5 (test code = 775) RED BLOOD CELL COUNT (BEAKER) 3.22 M/ L 3.93-5.22 L (test code = 761) HEMOGLOBIN (BEAKER) (test code = 9.6 GM/DL 11.2-15.7 L 410) HEMATOCRIT (BEAKER) (test code = 30.2 % 34.1-44.9 L 411) MEAN CORPUSCULAR VOLUME (BEAKER) 93.8 fL 79.4-94.8 (test code = 753) MEAN CORPUSCULAR HEMOGLOBIN 29.8 pg 25.6-32.2 (BEAKER) (test code = 751) MEAN CORPUSCULAR HEMOGLOBIN CONC 31.8 GM/DL 32.2-35.5 L (BEAKER) (test code = 752) RED CELL DISTRIBUTION WIDTH 13.2 % 11.7-14.4 (BEAKER) (test code = 412) PLATELET COUNT (BEAKER) (test 184 K/CU MM 150-450 code = 756) MEAN PLATELET VOLUME (BEAKER) 10.3 fL 9.4-12.3 (test code = 754) NUCLEATED RED BLOOD CELLS 0 /100 WBC 0-0 (BEAKER) (test code = 413) NEUTROPHILS RELATIVE PERCENT 51 % (BEAKER) (test code = 429) LYMPHOCYTES RELATIVE PERCENT 32 % (BEAKER) (test code = 430) MONOCYTES RELATIVE PERCENT 10 % (BEAKER) (test code = 431) EOSINOPHILS RELATIVE PERCENT 7 % (BEAKER) (test code = 432) BASOPHILS RELATIVE PERCENT 1 % (BEAKER) (test code = 437) NEUTROPHILS ABSOLUTE COUNT 3.41 K/ L 1.56-6.13 (BEAKER) (test code = 670) LYMPHOCYTES ABSOLUTE COUNT 2.13 K/ L 1.18-3.74 (BEAKER) (test code = 414) MONOCYTES ABSOLUTE COUNT (BEAKER) 0.67 K/ L 0.24-0.36 H (test code = 415) EOSINOPHILS ABSOLUTE COUNT 0.44 K/ L 0.04-0.36 H (BEAKER) (test code = 416) BASOPHILS ABSOLUTE COUNT (BEAKER) 0.05 K/ L 0.01-0.08 (test code = 417) IMMATURE GRANULOCYTES-RELATIVE 0 % 0-1 PERCENT (BEAKER) (test code = 2801) CBC W/PLT COUNT & AUTO [id number] 04:50:00 Test Item Value Reference Range Interpretation Comments WHITE BLOOD CELL COUNT (BEAKER) 6.9 K/ L 3.5-10.5 (test code = 775) RED BLOOD CELL COUNT (BEAKER) 3.19 M/ L 3.93-5.22 L (test code = 761) HEMOGLOBIN (BEAKER) (test code = 9.8 GM/DL 11.2-15.7 L 410) HEMATOCRIT (BEAKER) (test code = 30.3 % 34.1-44.9 L 411) MEAN CORPUSCULAR VOLUME (BEAKER) 95.0 fL 79.4-94.8 H (test code = 753) MEAN CORPUSCULAR HEMOGLOBIN 30.7 pg 25.6-32.2 (BEAKER) (test code = 751) MEAN CORPUSCULAR HEMOGLOBIN CONC 32.3 GM/DL 32.2-35.5 (BEAKER) (test code = 752) RED CELL DISTRIBUTION WIDTH 13.2 % 11.7-14.4 (BEAKER) (test code = 412) PLATELET COUNT (BEAKER) (test 172 K/CU MM 150-450 code = 756) MEAN PLATELET VOLUME (BEAKER) 10.2 fL 9.4-12.3 (test code = 754) NUCLEATED RED BLOOD CELLS 0 /100 WBC 0-0 (BEAKER) (test code = 413) NEUTROPHILS RELATIVE PERCENT 50 % (BEAKER) (test code = 429) LYMPHOCYTES RELATIVE PERCENT 32 % (BEAKER) (test code = 430) MONOCYTES RELATIVE PERCENT 10 % (BEAKER) (test code = 431) EOSINOPHILS RELATIVE PERCENT 7 % (BEAKER) (test code = 432) BASOPHILS RELATIVE PERCENT 1 % (BEAKER) (test code = 437) NEUTROPHILS ABSOLUTE COUNT 3.45 K/ L 1.56-6.13 (BEAKER) (test code = 670) LYMPHOCYTES ABSOLUTE COUNT 2.22 K/ L 1.18-3.74 (BEAKER) (test code = 414) MONOCYTES ABSOLUTE COUNT (BEAKER) 0.71 K/ L 0.24-0.36 H (test code = 415) EOSINOPHILS ABSOLUTE COUNT 0.48 K/ L 0.04-0.36 H (BEAKER) (test code = 416) BASOPHILS ABSOLUTE COUNT (BEAKER) 0.06 K/ L 0.01-0.08 (test code = 417) IMMATURE GRANULOCYTES-RELATIVE 0 % 0-1 PERCENT (BEAKER) (test code = 2801) SARS-CoV2/RT-PCR (Asymptomatic ONLY)2019-09-13 18:53:00 Test Item Value Reference Range Interpretation Comments SARS-COV2/RT-PCR Not Detected Not Detected, (test code = Negative 86087-7) SARS-COV-2 [facility] PERFORMING [facility] (test code = 69863-8) KAILA (test code = Negative results do not KAILA) preclude SARS-CoV-2 infection and should not be used as [...] of the Act. Fact Sheet for Healthcare Providers:https://www.[employer]/Documents/Xper t%20Xpress%20SARS%20CoV- 2/Fact%20Sheets/302-3802 %48ZRIG-YZI-1%20HEALTHCA RE%20PROVIDERS%20FACT%20 SHEET.pdf Fact Sheet for Healthcare Patients:https://www.[employer]/Documents/Xpert %20Xpress%20SARS%20CoV-2 /Fact%20Sheets/302-3801% 49OJOT-WZR-8%20PATIENT%2 0FACT%20SHEET.pdf Performing Laboratory:[facility], [place] [id number] [place], [place] [address]ARS-COV2/RT-PCR ([facility])2019-09-13 18:53:00 Test Item Value Reference Range Interpretation Comments SARS-COV2/RT-PCR (test Not Detected Not Detected, Negative code = 2695076) SARS-COV-2 PERFORMING LAB [facility] (test code = 4543837) Negative results do not preclude SARS-CoV-2 infection and should not be used as the sole basis for patient management decisions. Negative results must be combined with clinical observations, patient history, and epidemiological information. A false negative result may occur if a specimen is improperly collected, transported or handled.The limit of detection for this assay is 250 copies/mL.This SARS CoV-2 test is a rapid, real-time RT-PCR test intended for the qualitative detection of nucleic acid from SARS-CoV-2 in a nasopharyngeal swab specimen collected from individuals suspected of COVID-19 by their healthcare provider.This test has not been Food and Drug [...] is revoked under Section 564(g) of the Act.Fact Sheet for Healthcare Pro viders:https://www.[employer]/Documents/Xpert%20Xpress%20SARS%20CoV-2/Fact%20Sh eets/302-3802%91ZCLB-GAO-0%20HEALTHCARE%20PROVIDERS%20FACT%20SHEET.pdfFact Sheet for Healthcare Patients:https://www.[employer]/Documents/Xpert%20Xpress%20SARS%20CoV-2/Fact%20Sheets/302-3801%20SARS-COV -2%20PATIENT%20FACT%20SHEET.pdfPerforming Laboratory:[facility], [place] [address]Zynbgzfrqp [id number] 09:01:00 Test Item Value Reference Range Interpretation Comments Hemoglobin A1C (test code = 4548-4) 6.7 % 4.3-6.1 H Lab Interpretation (test code = Abnormal 67680-6) [facility] [id number] 09:01:00 Test Item Value Reference Range Interpretation Comments HEMOGLOBIN A1C (BEAKER) (test code = 6.7 % 4.3-6.1 H 368) Platelet Aggregation: Function [id number] 07:55:00 Test Item Value Reference Range Interpretation Comments Pathologist: (test code Phil Shayla, M.D. = 2622) (electonic signature) Platelets (test code = 160 150- 450 K/CU MM 2656) ADP (test code = 71 % 62-100 79451-4) Platelet Rich Plasma 179 200- 300 k/cu mm L (test code = 2134) Plt. Function Screen Normal aggregation Interpretation (test results with ADP. code = 4655) No evidence of platelet dysfunction or P2Y12 inhibitor effect. KAILA (test code = KAILA) Platelet Function Screen results may be falsely low with platelet counts<75,000/cu mm.House Nurse ID - [id number] Lab Interpretation (test Abnormal code = 59514-0) [facility] CenterPLATELET AGGREGATION: FUNCTION [id number] 07:55:00 Test Item Value Reference Range Interpretation Comments [id number] Phil Mcguire M.D. (BEAKER) (test code = (electonic signature) 2622) PLATELET COUNT AGG 160 K/CU MM 150-450 (BEAKER) (test code = 2656) ADP (BEAKER) (test code 71 % 62-100 = 4654) PLATELET RICH 179 k/cu mm 200-300 L PLASMA(BEAKER) (test code = 2134) PLATELET FUNCTION SCREEN Normal aggregation INTERPRETATION (BEAKER) results with ADP. No (test code = 4655) evidence of platelet dysfunction or P2Y12 inhibitor effect. Platelet Function Screen results may be falsely low with platelet counts<75,000/cu mm.House Nurse ID- [id number] AGGREGATION: FUNCTION SCREEN 2019-09-13 07:53:00 Test Item Value Reference Range Interpretation Comments [id number] Phil Mcguire M.D. (BEAKER) (test code = (electonic signature) 2622) PLATELET COUNT AGG 178 K/CU MM 150-450 (BEAKER) (test code = 2656) ADP (BEAKER) (test code 55 % 62-100 L = 4654) PLATELET RICH 192 k/cu mm 200-300 L PLASMA(BEAKER) (test code = 2134) PLATELET FUNCTION SCREEN Decreased aggregation INTERPRETATION (BEAKER) with ADP which (test code = 4655) indicates platelet dysfunction that may be due to medication effect, uremia, or other platelet function disorders. Clinical correlation is required. Platelet Function Screen results may be falsely low with platelet counts<75,000/cu mm.House Nurse ID- [id number] 07:33:00 Test Item Value Reference Range Interpretation Comments PARTIAL THROMBOPLASTIN TIME 85.7 seconds 22.5-36.0 H (BEAKER) (test code = 760) HUMPHREY, [id number] 07:28:00 Test Item Value Reference Range Interpretation Comments ABO Grouping (test code = 2588) A Rh Factor (test code = 2589) NEG [facility] CenterType and screen, [id number] 06:06:00 Test Item Value Reference Range Interpretation Comments ABO/RH AUTOMATED (BEAKER) (test A NEGATIVE code = 2260) Ab Scrn (test code = 890-4) NEGATIVE [facility] CenterLipid [id number] 06:04:00 Test Item Value Reference Range Interpretation Comments Triglycerides (test 83 mg/dL code = 2571-8) Cholesterol (test code 143 mg/dL = 2093-3) HDL (test code = 42 mg/dL 5-9) LDL Calculated (test 84 mg/dL code = 77971-4) KAILA (test code = KAILA) Triglyceride Reference Range: Low Risk <150 Borderline 150-199 High Risk 200-499 Very High Risk >=500 Cholesterol Reference Range: Low Risk <200 Borderline 200-239 High Risk >240 HDL Cholesterol Reference Range: Low Risk >=60 High Risk <40 LDL Cholesterol Reference Range: Optimal <100 Near Optimal 100-129 Borderline 130-159 High 160-189 Very High >=190 House Nurse ID - DANO Quinonez [facility] CenterMAGNESIUM2020-06-07 06:04:00 Test Item Value Reference Range Interpretation Comments MAGNESIUM (BEAKER) (test code = 2.1 mg/dL 1.6-2.6 627) House Nurse ID - DANO MBASIC METABOLIC [id number] 06:04:00 Test Item Value Reference Range Interpretation Comments SODIUM (BEAKER) 135 meq/L 136-145 L (test code = 381) POTASSIUM (BEAKER) 4.5 meq/L 3.5-5.1 (test code = 379) CHLORIDE (BEAKER) 108 meq/L 98-107 H (test code = 382) CO2 (BEAKER) (test 23 meq/L 22-29 code = 355) BLOOD UREA NITROGEN 44 mg/dL 7-21 H (BEAKER) (test code = 354) CREATININE (BEAKER) 1.36 mg/dL 0.57-1.25 H (test code = 358) GLUCOSE RANDOM 105 mg/dL 70-105 (BEAKER) (test code = 652) CALCIUM (BEAKER) 8.6 mg/dL 8.4-10.2 (test code = 697) EGFR (BEAKER) (test 38 mL/min/1.73 ESTIMA GHAZAL GFR IS code = 1092) sq m NOT ACCURATE CREATININE CLEARANCE IN PREDICTING GLOMERULAR FILTRATION RATE . ESTIMATED GFR I S NOT APPLICABLE FOR DIALYSIS PATIEN TS. House Nurse ID - DANO MLIPID [id number] 06:04:00 Test Item Value Reference Range Interpretation Comments TRIGLYCERIDES (BEAKER) (test code = 83 mg/dL 540) CHOLESTEROL (BEAKER) (test code = 143 mg/dL 631) HDL CHOLESTEROL (BEAKER) (test code 42 mg/dL = 976) LDL CHOLESTEROL CALCULATED (BEAKER) 84 mg/dL (test code = 633) Triglyceride Reference Range: Low Risk <150 Borderline 150-199 High Risk 200-499 Very High Risk >=500Cholesterol Reference Range: Low Risk <200 Borderline 200-239 High Risk >240HDL Cholesterol Reference Range: Low Risk >=60 High Risk <40LDL Cholesterol Reference Range: Optimal <100 Near Optimal 100-129 Borderline 130-159 High 160-189 Very High >=190 House Nurse ID - DANO MPROTHROMBIN [id number] 05:20:00 Test Item Value Reference Range Interpretation Comments PROTIME (BEAKER) (test code = 15.0 seconds 11.9-14.2 H 759) INR (BEAKER) (test code = 370) 1.2 <=5.9 Effective 09/03/2018: PT Reference Range ChangeNew: 11.9-14.2 Previous: 11.7- 14.7RECOMMENDED COUMADIN/WARFARIN INR THERAPY RANGESSTANDARD DOSE: 2.0-3.0 Includes: PROPHYLAXIS for venous thrombosis, systemic embolization; TREATMENT for venous thrombosis and/or pulmonary embolus.HIGH RISK: Target INR is2.5-3.5 for patients wiht mechanical heart valves.CBC W/PLT COUNT & AUTO [id number] 05:01:00 Test Item Value Reference Range Interpretation Comments WHITE BLOOD CELL COUNT (BEAKER) 7.6 K/ L 3.5-10.5 (test code = 775) RED BLOOD CELL COUNT (BEAKER) 3.07 M/ L 3.93-5.22 L (test code = 761) HEMOGLOBIN (BEAKER) (test code = 9.2 GM/DL 11.2-15.7 L 410) HEMATOCRIT (BEAKER) (test code = 28.9 % 34.1-44.9 L 411) MEAN CORPUSCULAR VOLUME (BEAKER) 94.1 fL 79.4-94.8 (test code = 753) MEAN CORPUSCULAR HEMOGLOBIN 30.0 pg 25.6-32.2 (BEAKER) (test code = 751) MEAN CORPUSCULAR HEMOGLOBIN CONC 31.8 GM/DL 32.2-35.5 L (BEAKER) (test code = 752) RED CELL DISTRIBUTION WIDTH 13.5 % 11.7-14.4 (BEAKER) (test code = 412) PLATELET COUNT (BEAKER) (test 160 K/CU MM 150-450 code = 756) MEAN PLATELET VOLUME (BEAKER) 10.6 fL 9.4-12.3 (test code = 754) NUCLEATED RED BLOOD CELLS 0 /100 WBC 0-0 (BEAKER) (test code = 413) NEUTROPHILS RELATIVE PERCENT 56 % (BEAKER) (test code = 429) LYMPHOCYTES RELATIVE PERCENT 34 % (BEAKER) (test code = 430) MONOCYTES RELATIVE PERCENT 8 % (BEAKER) (test code = 431) EOSINOPHILS RELATIVE PERCENT 1 % (BEAKER) (test code = 432) BASOPHILS RELATIVE PERCENT 1 % (BEAKER) (test code = 437) NEUTROPHILS ABSOLUTE COUNT 4.29 K/ L 1.56-6.13 (BEAKER) (test code = 670) LYMPHOCYTES ABSOLUTE COUNT 2.61 K/ L 1.18-3.74 (BEAKER) (test code = 414) MONOCYTES ABSOLUTE COUNT (BEAKER) 0.58 K/ L 0.24-0.36 H (test code = 415) EOSINOPHILS ABSOLUTE COUNT 0.07 K/ L 0.04-0.36 (BEAKER) (test code = 416) BASOPHILS ABSOLUTE COUNT (BEAKER) 0.06 K/ L 0.01-0.08 (test code = 417) IMMATURE GRANULOCYTES-RELATIVE 0 % 0-1 PERCENT (BEAKER) (test code = 2801) RAD, CHEST, 1 VIEW, NON [id number] 01:56:00Reason for exam:->pre op screenShould this be performed at the bedside?->YesFINAL REPORT History: Preoperative evaluation, surgery unspecified. Comparison: None. Findings: A single view of the chest is submitted. The cardiac silhouette is within normal limits for size. There is atherosclerotic calcification of the aorta. There is no focal consolidation, pneumothorax, large pleural effusion or evidence of overt pulmonary edema. There is no acute bony abnormality. Impression: No active cardiopulmonary abnormality. Signed: Chema Ibrahim MDReport Verified Date/Time: 09/13/2019 01:56:23 Carotid doppler bilateral 2019-09-12 21:31:06Ejection FractionSLE ECHO HEARTLAB MKCKESSON CPACSRight Impression1. Post stent, there is <50% diameter reduction (unable to obtain 2-Dmeasurement) in the internal carotid artery with a peak velocity of 84/15cm/sec and heterogeneous shadowing plaque.2. There is a stent visualized in the distal common carotid extending intothe proximal internal carotid artery with velocities of :'Prox:85/19cm/secMid: 85/21cm/secDist: 83/34cm/sec3. There is >50% stenosis in the external carotid artery with a velocity of162/19cm/sec.4. There is non-occluding plaque in the common carotid artery.5. The vertebral artery flow is antegrade and normal.6. The subclavian artery is within normal limits where visualized.Left Impression1. There is <50% diameter reduction (unable to obtain 2-D measurement) inthe tortuous internal carotid artery with a peak velocity of 85/26 cm/secand heterogeneous shadowing plaque.2.There is >50% stenosis in the external carotid artery with a velocity om010pu/sec.3. There is non-occluding plaque in the common carotid artery.4. The vertebral artery flow is antegrade and normal.5. The subclavian artery is within normal limits [...] 50% stenosis. The vertebral artery flow was antegradeand normal bilaterally. The subclavian arteries were patent with normal flow bilaterally where visualized. Signature Velocities are measured in cm/s ; Diameters are measured in cmCarotid Right Measurements+ +----+----+-----+ + +---- -------+!Location !PSV !EDV !Angle!%Stenosis 2D!%Stenosis Doppler!Tortuosity !+ +----+-- --+-----+ + + +!Prox CCA !77 !21.1!60 ! ! ! !+ +----+----+-----+ + + +!Dist CCA !85.1!19.9!60 ! ! ! !+ +----+- ---+-----+ + + +!Prox ICA !84.9!15.6!60 ! !<50% ! !+ +----+----+-----+ + +------ -----+!Dist ICA !106 !25.1!60 ! ! ! !+ +-- --+----+-----+ + + +!Prox ECA !162 !19.9!60 ! !>50% ! !+ +----+----+-----+ + +-- ---------+!Vertebral !101 !17.3!60 ! ! ! !+ -+----+----+-----+ + + +!Prox Subclavian!105 ! !60 ! ! ! !+ +----+----+-----+ + + + - There is antegrade vertebral flow noted on the right side. - Additional Measurements:ICAPSV/CCAPSV 1.25.ICAEDV/CCAEDV 1.19. Carotid Left Measurements+ +----+----+-----+-- + + +!Location !PSV !EDV !Angle!%Stenosis 2D!%Stenosis Doppler!Tortuosity !+ +----+----+-----+ + + +!Pr ox CCA !75.7!18.9!60 ! ! ! !+ +----+----+-----+- + + +!Dist CCA !63.1!18.2!60 ! ! ! !+ +----+----+-----+ + + +!Pr ox ICA !85.5!26.6!60 ! !<50% !Mild !+ +----+----+--- --+ + + +!Dist ICA !125 !29.4!60 ! ! ! !+ +----+----+-----+ + + +!Pr ox ECA !111 ! !60 ! !>50% ! !+ +----+---- +-----+ + + +!Vertebral !70.1!17.5!60 ! ! ! !+ +----+----+-----+ + + + !Prox Subclavian!110 ! !60 ! ! ! !+ +----+----+-----+ + + + - There is antegrade vertebral flow noted on the left side. - Additional Measurements:ICAPSV/CCAPSV 1.98.ICAEDV/CCAEDV 1.56. Interface, External Ris In - 09/12/2019 9:31 PM [facility] LAB - Carotid Duplex Study Demographics Patient Name PIRNCE GARCIA Date of Study 09/12/2019 Age 78 Visit Number [id number] Gender Female Accession Number [id number] Date of 1940 Referring Satinder Wray Room Number 1054 Physician MD Theresa Information Management Specialist Padmaja Davis Interpreting Pauly Chow MD RVT Physician ProcedureType of Study: Cerebral: Carotid, CAROTID DOPPLER, BILATERAL. Indications for Study:Evaluate for carotid stenosis .Patient Status:TODAY.Study Location:Portable.Technical Quality:Adequate visualization.Risk FactorsHistory of Disease+ -+ + +!Diagnosis !Date !Comments !+ + + + !History/Risk Factors: !09/12/2019!Carotid artery stent(right) !! ! !CAD !+ + + +ImpressionsRight Impression1. Post stent, there is <50% diameter reduction (unable to obtain 2-Dmeasurement) in the internal carotid artery with a peak velocity of 84/15cm/sec and heterogeneous shadowing plaque.2. There is a stent visualized in the distal common carotid extending intothe proximal internal carotid artery with velocities of :'Prox:85/19cm/secMid: 85/21cm/secDist: 83/34cm/sec3. There is >50% stenosis in the external carotid artery with a velocity of162/19cm/sec.4. There is non- occluding plaque in the common carotid artery.5. The vertebral artery flow is antegrade and normal.6. The subclavian artery is within normal limits where visualized.Left Impression1. There is <50% diameter reduction (unable to obtain 2-D measurement) inthe tortuous internal carotid artery with a peak velocity of 85/26 cm/secand heterogeneous shadowing plaque.2. There is >50% stenosis in the external carotid artery with a velocity kr866cw/sec.3. There is non-occluding plaque in the common carotid artery.4. The vertebral artery flow is antegrade and normal.5. The subclavian artery is within normal limits where visualized. Conclusions Summary Carotid duplex scanning andcolor flow imaging were performed bilaterally. The arteries were adequately visualized. Post stent, the right internal carotid artery had <50% hemodynamically insignificant stenosis with heterogeneous shadowing plaque. Stent velocities are stated above. The left tortuous internal carotid artery had<50% hemodynamically insignificant stenosis with heterogeneous shadowing plaque. The bilateral ext ernal carotid arteries had > 50% stenosis. The vertebral artery flow was antegrade and normal bilaterally. The subclavian arteries were patent with normal flow bilaterally where visualized. Signature Velocities are measured in cm/s ; Diameters are measured in cmCarotid Right Me asurements+ +----+----+-----+ + +------ -----+!Location !PSV !EDV !Angle!%Stenosis 2D!%Stenosis Doppler!Tortuosity !+ +----+----+-----+------- -----+ + +!Prox CCA !77 !21.1!60 ! ! ! !+ +----+----+-----+ + + +!Di st CCA !85.1!19.9!60 ! ! ! !+ +----+----+-----+------ ------+ + +!Prox ICA !84.9!15.6!60 ! !<50% ! !+ +----+----+-----+ + + +!Di st ICA !106 !25.1!60 ! ! ! !+ +----+----+-----+-- + + +!Prox ECA !162 !19.9!60 ! !>50% ! !+ +----+----+-----+ + + +!Ve rtebral !101 !17.3!60 ! ! ! !+ +----+----+---- -+ + + +!Prox Subclavian!105 ! !60 ! ! ! !+ +----+----+-----+ + + + - There is antegrade vertebral flow noted on the right side. - Additional Measurements:ICAPSV/CCAPSV 1.25.ICAEDV/CCAEDV 1.19.Carotid Left Measurements+ +----+----+-----+ +-------- ---------+ +!Location !PSV !EDV !Angle!%Stenosis 2D!%Stenosis Doppler!Tortuosity !+-- +----+----+-----+ + + +!Prox CCA !75.7!18.9!60 ! ! ! !+ +----+----+-----+ +------- + +!Dist CCA !63.1!18.2!60 ! ! ! !+- +----+----+-----+ + + +!Prox ICA !85.5!26.6!60 ! !<50% !Mild !+ +----+----+-----+ +--- + +!Dist ICA !125 !29.4!60 ! ! ! !+ +----+----+-----+ + + +!Pr ox ECA !111 ! !60 ! !>50% ! !+ +----+----+-----+ + + +!Vertebral !70.1!17.5!60 ! ! ! !+ +----+----+-----+ + + +!Pr ox Subclavian!110 ! !60 ! ! ! !+ +----+----+-----+ + + + - There is antegrade vertebral flow noted on the left side. - Additional Measurements:ICAPSV/CCAPSV 1.98.ICAEDV/CCAEDV 1.56.[facility] [id number] 18:35:00 Test Item Value Reference Range Interpretation Comments PARTIAL THROMBOPLASTIN TIME 81.1 seconds 22.5-36.0 H (BEAKER) (test code = 760) Troponin [id number] 11:43:00 Test Item Value Reference Range Interpretation Comments Troponin I (test code = 1.26 ng/mL 0-0.03 86451-9) KAILA (test code = KAILA) Troponin I (TnI) levels must be interpreted in the context of the presenting symptoms and the clinical findings. Elevated TnI levels indicate myocardial damage, but are not specific for ischemic heart disease. Elevated TnI levels are seen in patients with other cardiac conditions (including myocarditis and congestive heart failure), and slight TnI elevations occur in patients with other conditions, including sepsis, renal failure, acidosis, acute neurological disease, and persistent tachyarrhythmia.Elhama elisha Apr C Lab Interpretation (test Abnormal code = 53469-8) [facility] [id number] 11:43:00 Test Item Value Reference Range Interpretation Comments TROPONIN I (BEAKER) (test code = 1.26 ng/mL 0.00-0.03 397) Troponin I (TnI) levels must be interpreted in the context of the presenting symptoms and the clinical findings. Elevated TnI levels indicate myocardial damage, but are not specific for ischemic heart disease. Elevated TnI levels are seen in patients with other cardiac conditions (including myocarditis and congestive heart failure), and slight TnI elevations occur in patients with other conditions, including sepsis, renal failure, acidosis, acute neurological disease, and persistent tachyarrhythmia.House Nurse ID - CHAO [id number] 11:25:00 Test Item Value Reference Range Interpretation Comments PARTIAL THROMBOPLASTIN TIME 75.5 seconds 22.5-36.0 H (BEAKER) (test code = 760) TROPONIN [id number] 04:03:00 Test Item Value Reference Range Interpretation Comments TROPONIN I (BEAKER) (test code = 1.70 ng/mL 0.00-0.03 397) Troponin I (TnI) levels must be interpreted in the context of the presenting symptoms and the clinical findings. Elevated TnI levels indicate myocardial damage, but are not specific for ischemic heart disease. Elevated TnI levels are seen in patients with other cardiac conditions (including myocarditis and congestive heart failure), and slight TnI elevations occur in patients with other conditions, including sepsis, renal failure, acidosis, acute neurological disease, and persistent tachyarrhythmia.House Nurse ID - SAURABH [id number] 03:47:00 Test Item Value Reference Range Interpretation Comments PARTIAL THROMBOPLASTIN TIME 26.9 seconds 22.5-36.0 (BEAKER) (test code = 760) 6 hours after starting heparin infusion and as indicated per sliding scaleCBC (HEMOGRAM ONLY)2019-09-12 03:31:00 Test Item Value Reference Range Interpretation Comments WHITE BLOOD CELL COUNT (BEAKER) 5.9 K/ L 3.5-10.5 (test code = 775) RED BLOOD CELL COUNT (BEAKER) 3.19 M/ L 3.93-5.22 L (test code = 761) HEMOGLOBIN (BEAKER) (test code = 9.6 GM/DL 11.2-15.7 L 410) HEMATOCRIT (BEAKER) (test code = 29.5 % 34.1-44.9 L 411) MEAN CORPUSCULAR VOLUME (BEAKER) 92.5 fL 79.4-94.8 (test code = 753) MEAN CORPUSCULAR HEMOGLOBIN 30.1 pg 25.6-32.2 (BEAKER) (test code = 751) MEAN CORPUSCULAR HEMOGLOBIN CONC 32.5 GM/DL 32.2-35.5 (BEAKER) (test code = 752) RED CELL DISTRIBUTION WIDTH 13.1 % 11.7-14.4 (BEAKER) (test code = 412) PLATELET COUNT (BEAKER) (test 184 K/CU MM 150-450 code = 756) MEAN PLATELET VOLUME (BEAKER) 10.4 fL 9.4-12.3 (test code = 754) NUCLEATED RED BLOOD CELLS 0 /100 WBC 0-0 (BEAKER) (test code = 413)
[2019-10-12 19:22] LABS: Absolute Lymphocytes (CBC) 0.7 K/uL (0.7-4.9); Basophils % 0.3 % (0-1.3); Hematocrit 29.5 % (36.0-45.0); Lymphocytes % 10.8 % (15.3-44.8); MPV 8.4 fL (7.6-11.3); RBC Red Blood Cell Count 3.29 M/uL (3.86-4.86)
--- NOTE | 2019-10-12 19:40 | RAD REPORT ---
EXAM DESCRIPTION: CT - Stone Protocol - 10/12/2019 7:12 pm CLINICAL HISTORY: Abd pain;Flank pain COMPARISON: CT-STONE PROTOCOL dated 07/30/2008 TECHNIQUE: Axial [address] imaging of the abdomen and pelvis was performed without IV contrast. No IV contrast was given because of allergy, abnormal renal function, patient refusal or physician re quest. No oral contrast. All CT scans are performed using dose optimization technique as appropriate and may include automated exposure control or mA/KV adjustment according to patient size. FINDINGS: Small left pleural effusion present with left base atelectasis. Small pericardial effusion is present. The liver, spleen and pancreas show no suspicious findings on non-contrast imaging. Cholecystectomy c lips are present. No biliary tree dilatation. No hydronephrosis or suspicious renal mass. No significant adrenal finding. Isodense renal masses an d pyelonephritis cannot be excluded in the absence of IV contrast. The urinary bladder is without sig nificant finding. Uterus is absent. Ovaries are absent or atrophic. No gastric dilatation. Bañuelos of the antrum are accentuated. This is probably due to a lack of gastric content and peristalsis. A mild antritis cannot be excluded. There is no stranding or edema in the a djacent fat. Duodenum and remainder of small bowel are unremarkable. No acute colon process. Patient has moderately prominent diverticulosis without diverticulitis findings. No free air, free fluid or inflammatory stranding. No hernia, mass or bulky lymphadenopathy. Disc and bony degenerative changes are present. Patient has spinal stenosis at the L4-5 level. No acute vascular finding suspected. IMPRESSION: No bowel obstruction, free air or surgically emergent finding. Gastric bañuelos are accentuated probably due to lack of intraluminal content. Mild gastritis/antritis c annot be excluded. Gallbladder is absent. Pancreas and biliary tree show no suspicious findings. Full assessment is limited is the absence of IV contrast.
[2019-10-12 19:43] LABS: ALT/SGPT 14 U/L (12-78); AST/SGOT 19 U/L (15-37); Albumin 3.2 g/dL (3.4-5.0); BUN Blood Urea Nitrogen 20 mg/dL (7-18); Bicarbonate 20 mmol/L (21-32); Bilirubin Direct 0.1 mg/dL (0-0.2); Bilirubin Total 0.4 mg/dL (0.2-1.0); Glucose Level 167 mg/dL (74-106); Lipase 55 U/L (73-393); NT PRO-BNP 4970 pg/mL (<450); Potassium 4.1 mmol/L (3.5-5.1); Protein, Total 7.4 g/dL (6.4-8.2); Sodium Level 136 mmol/L (136-145); Troponin (Emerg Dept Use Only) 0.02 ng/mL (0.0-0.045)
[2019-10-12 20:00] LABS: Alkaline Phosphatase < 10 U/L (45-117)
--- NOTE | 2019-10-12 20:05 | RAD REPORT ---
EXAM DESCRIPTION: RAD - Chest Single View - 10/12/2019 7:44 pm CLINICAL HISTORY: COUGH COMPARISON: September 10, 2019 TECHNIQUE: AP portable chest image was obtained 10/12/2019 7:44 pm . FINDINGS: CABG surgical changes are new from comparison. Atelectasis in left base pleural effusion a re present. Left base infiltrate is lesser in likelihood. Left-sided findings are not uncommon after a CABG procedure. Right lung field is clear. Heart and vasculature are normal. No measurable pleural effusion and no pneumothorax. No acute bony abnormality seen. No acute aortic findings suspected. IMPRESSION: CABG surgical changes are noted. Left lung base pleural effusion and atelectasis are com mon after surgery.
[2019-10-12] MEDS ORDERED: CEFTRIAXONE/SWI 1gm 1 GM/10 ML SYR ONE (20:14)
[2019-10-12] MEDS ORDERED: NA CHLORIDE 0.9% 1,000 ML ONE ×2 (20:14→21:34)
[2019-10-12] MEDS ORDERED: ACETAMINOPHEN 325 MG TABLET ONE (20:14)
--- NOTE | 2019-10-12 20:36 | ER ---
Nurse's Notes [facility] Name: Yeison Ellis Age: 78 yrs Sex: Female : 1940 Arrival Date: 10/12/2019 Time: 17:45 Bed 24 Private MD: Diagnosis: Diarrhea, unspecified;Fever, unspecified;Cough;Weakness;Pleural effusion in conditions classified elsewhere;Chest pain, unspecified-sp cabg Presentation: 10/11 17:54 Chief complaint: Patient states: diarrhea since this morning. Pt also reports ls4 productive cough and shortness of breath. Coronavirus screen: Surgical mask placed on patient. Patient moved to private room, placed in contact and droplet isolation with eye protection until further assessment. Patient reports a cough. Patient reports shortness of breath or difficulty breathing. Patient reports a measured and/or subjective temperature greater than 100.4F. Patient denies travel on a cruise ship or to a country the [facility] currently lists as an affected area. Patient denies contact with known and/or suspected case of COVID-19. Prior COVID test. Ebola Screen: No symptoms or risks identified at this time. Initial Sepsis Screen: Does the patient meet any 2 criteria? Temp <36.0*C (96.8*F)) or > 38.3*C (100.9*F). HR > 90 bpm. Yes Does the patient have a suspected source of infection? Yes: Productive cough/pneumonia If YES to both, name of provider notified: Jim Delgado MD Risk Assessment: Do you want to hurt yourself or someone else? Patient reports no desire to harm self or others. Onset of symptoms was October 12, 2019. Care prior to arrival: None. Activity prior to arrival: None. 17:54 Method Of Arrival: EMS: [facility] ls4 17:54 Acuity: ALEXIS 2 ls4 Triage Assessment: 17:59 General: Appears in no apparent distress. uncomfortable, Behavior is fussy. Pain: ls4 Complains of pain in mid-sternal area Pain currently is 4 out of 10 on a pain scale. Pain began surgical, sp cabg. Historical: - Allergies: 17:59 Darvocet-N 100; ls4 17:59 EGG/POULTRY; ls4 17:59 propoxyphene napsylate; ls4 17:59 Lafnaht-Fwn-Lun Reductase Inhibitor; ls4 17:59 Iodine; ls4 17:59 egg; ls4 - PMHx: 17:59 Arthritis; Back pain; Chronic pain; Hypertension; Kidney stones; Myocardial infarction; ls4 neuropathy; Rheumatoid Arthritis; - PSHx: 17:59 Hysterectomy; Cholecystectomy; Appendectomy; Tubal ligation; Heart stents; ls4 - Immunization history:: Adult Immunizations up to date, Last tetanus immunization: up to date. - Social history:: Smoking status: unknown. - Family history:: not pertinent. Screenin:45 Abuse screen: Denies threats or abuse. Denies injuries from another. Nutritional ls4 screening: No deficits noted. Tuberculosis screening: No symptoms or risk factors identified. Fall Risk None identified. Assessment: 20:30 Reassessment: Patient appears in no apparent distress at this time. Patient and/or ls4 family updated on plan of care and expected duration. Pain level reassessed. Patient is alert, oriented x 3, equal unlabored respirations, skin warm/dry/pink. Patient states symptoms have improved. 21:40 Reassessment: Patient appears in no apparent distress at this time. Patient and/or ls4 family updated on plan of care and expected duration. Pain level reassessed. Patient is alert, oriented x 3, equal unlabored respirations, skin warm/dry/pink. PT HAD LOOSE BM, BROWN WITH CLEAR MUCUS, SENT TO LAB. Patient states feeling better. 23:00 Reassessment: Patient appears in no apparent distress at this time. Patient and/or ls4 family updated on plan of care and expected duration. Pain level reassessed. Patient is alert, oriented x 3, equal unlabored respirations, skin warm/dry/pink. 10/12 00:00 Reassessment: Patient appears in no apparent distress at this time. Patient and/or ls4 family updated on plan of care and expected duration. Pain level reassessed. Patient is alert, oriented x 3, equal unlabored respirations, skin warm/dry/pink. 01:50 Reassessment: pt cleaned of incontinence, pt had BM with loose stool and small amount, sg a clean brief has been placed on the pt at this time, pt transported upstairs to receiving nurse PIEDAD Magallon. Vital Signs: 10/11 17:54 BP 154 / 82; Pulse 102; Resp 20; Temp 102.2; Pulse Ox 99% on R/A; Weight 68.04 kg; ls4 Height 5 ft. 2 in. (157.48 cm); Pain 3/10; 20:30 BP 148 / 72; Pulse 93; Resp 22; Temp 100.2; Pulse Ox 97% on R/A; Pain 3/10; ls4 21:39 BP 124 / 95; Pulse 87; Resp 18; Temp 98.9(O); Pulse Ox 97% on R/A; Pain 3/10; ls4 22:44 BP 144 / 76; Pulse 88; Resp 16; Pulse Ox 97% on R/A; Pain 5/10; ls4 23:45 BP 146 / 74; Pulse 86; Resp 16; Pulse Ox 98% on R/A; Pain 0/10; ls4 10/12 00:44 BP 149 / 63; Pulse 87; Resp 16; Pulse Ox 98% on R/A; Pain 0/10; ls4 10/11 17:54 Body Mass Index 27.44 (68.04 kg, 157.48 cm) ls4 ED Course: 10/11 17:45 Patient arrived in ED. iw 17:45 No apparent distress. ls4 17:45 No provider procedures requiring assistance completed. Initial lab(s) drawn, by ct, ls4 sent to lab. EKG done. Inserted saline lock: 18 gauge in right antecubital area, using aseptic technique. Blood collected. Patient maintains SpO2 saturation greater than 95% on room air. 17:45 Patient has correct armband on for positive identification. Placed in gown. Bed in low ls4 position. Call light in reach. Side rails up X2. secured entrance monitor on. Pulse ox on. NIBP on. Warm blanket given. Verbal reassurance given. Droplet isolation initiated. 17:45 Arm band placed on. ls4 17:45 EKG completed in triage. Results shown to MD. ls4 17:53 Jim Delgado MD is Attending Physician. [facility] 17:54 Teagan Slaughter, PIEDAD is Primary Nurse. ls4 17:57 Triage completed. ls4 19:12 CT Stone Protocol: fever , flank pain, diarrhea, hx of stones In Process Unspecified. EDMS 19:21 XRAY Chest (1 view) Sent. ls4 19:44 XRAY Chest (1 view) In Process Unspecified. EDMS 20:32 Clovis Mejia MD is Hospitalizing Provider. lily 20:33 Barney Ruiz is Hospitalizing Provider. illy 21:20 Lactate Sent. ls4 21:28 NT PRO-BNP Sent. ls4 21:28 Basic Metabolic Panel Sent. ls4 21:28 CBC with Diff Sent. ls4 10/12 00:42 No apparent distress. Appears to be sleeping. ls4 01:34 C.difficile GDH Ag Sent. 4 01:57 Patient admitted, IV remains in place. intact, No redness/swelling at site. sg Administered Medications: 10/11 20:10 Drug: NS 0.9% 1000 ml Route: IV; Rate: 1 bolus; Site: right antecubital; ls4 20:10 Drug: Tylenol 650 mg Route: PO; ls4 20:10 Drug: Rocephin 1 grams Route: IV; Rate: per protocol; Site: right antecubital; ls4 21:20 Drug: Pepcid 20 mg Route: IVP; Site: right antecubital; ls4 21:40 Follow up: Response: No adverse reaction 4 21:27 Drug: NS 0.9% 1000 ml Route: IV; Rate: 125 ml/hr; Site: right antecubital; ls4 10/12 01:42 Follow up: IV Status: Infusion continued upon admission ls4 10/11 23:05 Drug: [employer] 10 mg-325 mg 1 tabs {Note: telephone order Dr Ruiz, read back and ls4 verified. .} Route: PO; 23:36 Follow up: Response: No adverse reaction; Marked relief of symptoms ls4 Outcome: 20:35 Decision to Hospitalize by Provider. [facility] 10/12 01:57 Patient left the ED. 01:57 Admitted to Med/surg accompanied by tech, via stretcher, with chart, Report called to emelia Magallon RN 01:57 Condition: good 01:57 Instructed on the need for admit, safety practices, face covering policy Demonstrated understanding of instructions. Signatures: Dispatcher [employer] EDMS Jace Leon RN RN sg Anderson, Corey, MD MD cha Williams, Irene, RN RN iw Stewart, Lisa, RN RN ls4 Corrections: (The following items were deleted from the chart) 10/11 18:00 17:54 Chief complaint: Patient states: diarrhea since this morning. ls4 ls4
--- NOTE | 2019-10-12 20:36 | EDPHYS ---
Physician Documentation [facility] Name: Yeison Ellis Age: 78 yrs Sex: Female : 1940 Arrival Date: 10/12/2019 Time: 17:45 Bed 24 Private MD: ED Physician Jim Delgado HPI: 10/11 18:40 This 78 yrs old Female presents to ER via EMS with complaints of fever, lily diarrhea, cough and weakness. 18:40 The patient has shortness of breath at rest. Onset: The symptoms/episode began/occurred lily 4 day(s) ago. Duration: The symptoms are continuous, and are steadily getting worse. The patient's shortness of breath is aggravated by light activity, is alleviated by elevating head, application of supplemental oxygen. The patient presents to the emergency department with nausea, diarrhea. Onset: The symptoms/episode began/occurred 4 day(s) ago. Possible causes: unknown. weak x 4 days, diarrhea and weakness. Historical: - Allergies: 17:59 Darvocet-N 100; ls4 17:59 EGG/POULTRY; ls4 17:59 propoxyphene napsylate; ls4 17:59 Uhczpkk-Kbo-Ooh Reductase Inhibitor; ls4 17:59 Iodine; ls4 17:59 egg; ls4 - PMHx: 17:59 Arthritis; Back pain; Chronic pain; Hypertension; Kidney stones; Myocardial infarction; ls4 neuropathy; Rheumatoid Arthritis; - PSHx: 17:59 Hysterectomy; Cholecystectomy; Appendectomy; Tubal ligation; Heart stents; ls4 - Immunization history:: Adult Immunizations up to date, Last tetanus immunization: up to date. - Social history:: Smoking status: unknown. - Family history:: not pertinent. ROS: 18:40 Constitutional: Negative for fever, chills, and weight loss, Eyes: Negative for injury, lily pain, redness, and discharge, ENT: Negative for injury, pain, and discharge, Neck: Negative for injury, pain, and swelling, Cardiovascular: Negative for chest pain, palpitations, and edema, Back: Negative for injury and pain, : Negative for injury, bleeding, discharge, and swelling, MS/Extremity: Negative for injury and deformity, Skin: Negative for injury, rash, and discoloration, Psych: Negative for depression, anxiety, suicide ideation, homicidal ideation, and hallucinations, Allergy/Immunology: Negative for hives, rash, and allergies, Endocrine: Negative for neck swelling, polydipsia, polyuria, polyphagia, and marked weight changes, Hematologic/Lymphatic: Negative for swollen nodes, abnormal bleeding, and unusual bruising. 18:40 Respiratory: Positive for cough, shortness of breath, at rest. 18:40 Abdomen/GI: Positive for nausea, diarrhea. Exam: 18:40 Constitutional: This is a well developed, well nourished patient who is awake, alert, lily and in no acute distress. Head/Face: Normocephalic, atraumatic. Eyes: Pupils equal round and reactive to light, extra-ocular motions intact. Lids and lashes normal. Conjunctiva and sclera are non-icteric and not injected. Cornea within normal limits. Periorbital areas with no swelling, redness, or edema. ENT: Nares patent. No nasal discharge, no septal abnormalities noted. Tympanic membranes are normal and external auditory canals are clear. Oropharynx with no redness, swelling, or masses, exudates, or evidence of obstruction, uvula midline. Mucous membranes moist. Neck: Trachea midline, no thyromegaly or masses palpated, and no cervical lymphadenopathy. Supple, full range of motion without nuchal rigidity, or vertebral point tenderness. No Meningismus. Chest/axilla: Normal chest wall appearance and motion. Nontender with no deformity. No lesions are appreciated. Respiratory: Lungs have equal breath sounds bilaterally, clear to auscultation and percussion. No rales, rhonchi or wheezes noted. No increased work of breathing, no retractions or nasal flaring. Abdomen/GI: Soft, non-tender, with normal bowel sounds. No distension or tympany. No guarding or rebound. No evidence of tenderness throughout. Back: No spinal tenderness. No costovertebral tenderness. Full range of motion. Female : Normal external genitalia. Skin: Warm, dry with normal turgor. Normal color with no rashes, no lesions, and no evidence of cellulitis. MS/ Extremity: Pulses equal, no cyanosis. Neurovascular intact. Full, normal range of motion. Neuro: Awake and alert, GCS 15, oriented to person, place, time, and situation. Cranial nerves II-XII grossly intact. Motor strength 5/5 in all extremities. Sensory grossly intact. Cerebellar exam normal. Normal gait. Psych: Awake, alert, with orientation to person, place and time. Behavior, mood, and affect are within normal limits. 18:40 Cardiovascular: Rate: tachycardic, Rhythm: regular, Pulses: Pulses are 4+ in bilateral radial, brachial, femoral, popliteal, posterior tibial and and dorsalis pedis arteries.. Heart sounds: normal, Edema: is not appreciated, JVD: is not appreciated. Vital Signs: 17:54 BP 154 / 82; Pulse 102; Resp 20; Temp 102.2; Pulse Ox 99% on R/A; Weight 68.04 kg; ls4 Height 5 ft. 2 in. (157.48 cm); Pain 3/10; 20:30 BP 148 / 72; Pulse 93; Resp 22; Temp 100.2; Pulse Ox 97% on R/A; Pain 3/10; ls4 21:39 BP 124 / 95; Pulse 87; Resp 18; Temp 98.9(O); Pulse Ox 97% on R/A; Pain 3/10; ls4 22:44 BP 144 / 76; Pulse 88; Resp 16; Pulse Ox 97% on R/A; Pain 5/10; ls4 23:45 BP 146 / 74; Pulse 86; Resp 16; Pulse Ox 98% on R/A; Pain 0/10; ls4 07 00:44 BP 149 / 63; Pulse 87; Resp 16; Pulse Ox 98% on R/A; Pain 0/10; ls4 10/11 17:54 Body Mass Index 27.44 (68.04 kg, 157.48 cm) ls4 MDM: 10/11 17:53 Patient medically screened. [facility] 18:45 Data reviewed: vital signs, nurses notes, EMS record, lab test result(s), EKG, [facility] radiologic studies, CT scan, plain films. 10/11 18:39 Order name: NT PRO-BNP [facility] 10/11 18:39 Order name: Basic Metabolic Panel [facility] 10/11 18:39 Order name: CBC with Diff [facility] 10/11 18:39 Order name: LFT's; Complete Time: 20:28 [facility] 10/11 18:39 Order name: Magnesium; Complete Time: 20:28 [facility] 10/11 18:39 Order name: Troponin (emerg Dept Use Only); Complete Time: 20:28 [facility] 10/11 18:39 Order name: Lipase; Complete Time: 20:28 [facility] 10/11 18:39 Order name: Urine Culture [facility] 10/11 18:39 Order name: Blood Culture Adult (2) [facility] 10/11 18:39 Order name: Influenza Screen (a \T\ B); Complete Time: 20:28 [facility] 10/11 18:39 Order name: COVID-19 [facility] 10/11 18:39 Order name: Stool Culture [facility] 10/11 18:39 Order name: Fecal Leukocyte Stain [facility] 10/11 18:40 Order name: NT PRO-BNP; Complete Time: 20:28 [facility] 10/11 18:39 Order name: XRAY Chest (1 view); Complete Time: 20:28 [facility] 10/11 18:39 Order name: EKG; Complete Time: 18:40 [facility] 10/11 18:39 Order name: Cardiac monitoring; Complete Time: 19:30 [facility] 10/11 18:40 Order name: Basic Metabolic Panel; Complete Time: 20:28 [facility] 10/11 18:40 Order name: CBC with Automated Diff; Complete Time: 20:28 [facility] 10/11 18:45 Order name: CT Stone Protocol: fever , flank pain, diarrhea, hx of stones; Complete [facility] Time: 20:28 10/11 20:41 Order name: Lactate [facility] 10/11 20:41 Order name: Lactate [facility] 10/11 21:20 Order name: Urine Microscopic Only [facility] 10/11 21:59 Order name: C.difficile GDH Ag [facility] 10/11 18:39 Order name: EKG - Nurse/Tech; Complete Time: 20:19 [facility] 10/11 18:39 Order name: IV Saline Lock; Complete Time: 19:29 [facility] 10/11 18:39 Order name: Labs collected and sent; Complete Time: 19:29 [facility] 10/11 18:39 Order name: O2 Per Protocol; Complete Time: 19:29 [facility] 10/11 18:39 Order name: O2 Sat Monitoring; Complete Time: 19:29 [facility] 10/11 18:39 Order name: Urine Dipstick-Ancillary (obtain specimen); Complete Time: 21:28 [facility] Administered Medications: 20:10 Drug: NS 0.9% 1000 ml Route: IV; Rate: 1 bolus; Site: right antecubital; ls4 20:10 Drug: Tylenol 650 mg Route: PO; ls4 20:10 Drug: Rocephin 1 grams Route: IV; Rate: per protocol; Site: right antecubital; ls4 21:20 Drug: Pepcid 20 mg Route: IVP; Site: right antecubital; ls4 21:40 Follow up: Response: No adverse reaction ls4 21:27 Drug: NS 0.9% 1000 ml Route: IV; Rate: 125 ml/hr; Site: right antecubital; ls4 10/12 01:42 Follow up: IV Status: Infusion continued upon admission ls4 10/11 23:05 Drug: [place] 10 mg-325 mg 1 tabs {Note: telephone order Dr Ruiz, read back and ls4 verified. .} Route: PO; 23:36 Follow up: Response: No adverse reaction; Marked relief of symptoms ls4 Disposition: 10/12/19 20:35 Hospitalization ordered by Barney Ruiz for Inpatient Admission. Preliminary diagnosis are Diarrhea, unspecified, Fever, unspecified, Cough, Weakness, Pleural effusion in conditions classified elsewhere, Chest pain, unspecified - sp cabg. - Bed requested for Telemetry/MedSurg (Inpatient). - Status is Inpatient Admission. sg - Condition is Fair. - Problem is new. - Symptoms have improved. Signatures: Dispatcher [employer] EDMS Jace Leon RN RN sg Jim Delgado MD MD cha Lasagna, Tonya, RN RN tl1 Teagan Slaughter RN RN ls4 Corrections: (The following items were deleted from the chart) 22:02 20:35 Hospitalization Ordered by Barney Ruiz for Inpatient Admission. Preliminary tl1 diagnosis is Diarrhea, unspecified; Fever, unspecified; Cough; Weakness; Pleural effusion in conditions classified elsewhere; Chest pain, unspecified - sp cabg. Bed requested for Telemetry/MedSurg (Inpatient). Status is Inpatient Admission. Condition is Fair. Problem is new. Symptoms have improved. [facility] 10/12 01:31 10/11 22:02 10/12/2019 20:35 Hospitalization Ordered by Barney Ruiz for Inpatient tl1 Admission. Preliminary diagnosis is Diarrhea, unspecified; Fever, unspecified; Cough; Weakness; Pleural effusion in conditions classified elsewhere; Chest pain, unspecified - sp cabg. Bed requested for [facility] ER HOLD. Status is Inpatient Admission. Condition is Fair. Problem is new. Symptoms have improved. tl1 10/12 01:57 01:31 10/12/2019 20:35 Hospitalization Ordered by Barney Ruiz for Inpatient sg Admission. Preliminary diagnosis is Diarrhea, unspecified; Fever, unspecified; Cough; Weakness; Pleural effusion in conditions classified elsewhere; Chest pain, unspecified - sp cabg. Bed requested for Telemetry/MedSurg (Inpatient). Status is Inpatient Admission. Condition is Fair. Problem is new. Symptoms have improved. tl1
[2019-10-12] MEDS ORDERED: FAMOTIDINE 20 MG/2 ML VIAL IV ONE (21:34)
--- NOTE | 2019-10-12 21:46 | P.HP ---
Certification for Inpatient Patient admitted to: Observation With expected LOS: <2 Midnights Practitioner: I am a practitioner with admitting privileges, knowledge of patient current condition, hospital course, and medical plan of care. Services: Services provided to patient in accordance with Admission requirements found in Title 42 Section 412.3 of the Code of Federal Regulations Patient History Date of Service: 10/12/19 Reason for admission: Generalize weakness, fever and diarrhea. History of Present Illness: 78-year-old woman with a history coronary artery disease status post cardiac stent and CABG presented to the ED with the complaint of fever, cough productive of watts sputum, generalized body pains and diarrhea off about 4 days duration. Patient denied any shortness of breath. Chest x-ray in the ED demonstrated bilateral interstitial opacities which is unchanged from previous chest x-ray. She has no leukocytosis. She also has mild metabolic acidosis. Patient is placed under observation for further management. Allergies iodine Allergy (Verified 09/11/19 02:26) Itching/Hives/Rash propoxyphene napsylate [From Darvocet-N] Adverse Reaction (Intermediate, Verified 09/11/19 02:26) Nausea/Vomiting cauliflower Adverse Reaction (Verified 09/11/19 02:26) Nausea/Vomiting egg Adverse Reaction (Verified 09/11/19 02:26) Nausea/Vomiting Lkgjyvq-Zbu-Vfg Reductase Inhibitor Adverse Reaction (Verified 09/11/19 02:26) Nausea/Vomiting Home Medications: Aspirin [Pura Chewable Aspirin] 81 mg PO DAILY 09/16/13 Clopidogrel Bisulfate [Plavix*] 75 mg PO DAILY #0 tablet 09/19/13 Hydrocodone Bit/Acetaminophen [Hydrocodon-Acetaminophn 10-500] 1 tab PO Q4H PRN #0 tablet 09/19/13 ramipriL [Altace*] 10 mg PO DAILY #0 cap 09/19/13 Metoprolol Tartrate [Lopressor*] 75 mg PO BID 01/01/19 Ranitidine [Zantac*] 150 mg PO DAILY PRN 01/01/19 - Past Medical/Surgical History Diabetic: No -: Hypertension -: Clots in the legs -: CAD -: CHF -: History of [place] -: Arthritis -: Spider bites in legs -: 3-pinged nerves at the back/sciatic nerve -: Neuropathy -: Chronic back pain -: Cardiac Stents -: Endoscopy -: Tubal Ligation -: Hysterectomy -: L knee repair -: galbladder removed -: hemorrhoidectomy -: clots in legs removed - Family History Brother -: Heart disease, Hypertension Father -: Heart disease, Hypertension - Social History Alcohol use: No CD- Drugs: No Caffeine use: Yes Review of Systems Other: Except as documented, all other systems reviewed and negative. Physical Examination - Physical Exam General: Alert, In no apparent distress, Oriented x3 HEENT: PERRLA, Mucous membr. moist/pink, Sclerae nonicteric Neck: Supple, JVD not distended Respiratory: Clear to auscultation bilaterally, Normal air movement Cardiovascular: No edema, Regular rate/rhythm, Normal S1 S2 Capillary refill: <2 Seconds Gastrointestinal: Normal bowel sounds, Soft and benign, Non-distended, No tenderness Musculoskeletal: No swelling, No erythema Integumentary: No rashes Neurological: Normal speech, Normal strength at 5/5 x4 extr - Studies Laboratory Data (last 24 hrs) 10/12/19 19:08: WBC 6.7, Hgb 10.0 L, Hct 29.5 L, Plt Count 215 10/12/19 19:08: Sodium 136, Potassium 4.1, BUN 20 H, Creatinine 1.14, Glucose 167 H, Magnesium 2.0, Total Bilirubin 0.4, AST 19, ALT 14, Alkaline Phosphatase < 10 L, Lipase 55 L Microbiology Data (last 24 hrs): 10/12/19 19:10 Nasopharnyx Influenza Type A Antigen Screen - Final 10/12/19 19:10 Nasopharnyx Influenza Type B Antigen Screen - Final Assessment and Plan - Problems (Diagnosis) (1) Enteritis Current Visit: Yes Status: Acute (2) Pleural effusion, left Current Visit: Yes Status: Acute (3) Acute viral disease Current Visit: Yes Status: Acute (4) Coronary artery disease Onset Date: 03/08/17 Current Visit: No Status: Chronic Qualifiers: - Plan Place under observation. Supportive measures. IV Flagyl and Rocephin Will avoid IV fluids at this time given history of congestive heart failure and presence of pleural effusion. Test for COVID 19 is pending. Hold Lasix Continue other home medications. Stool studies. Rule out C. diff. - Advance Directives Does patient have a Living Will: No Does patient have a Durable POA for Healthcare: No
[2019-10-12 21:49] LABS: Urine Bacteria >50 /HPF (<20); Urine RBC <5 /HPF (NONE SEEN)
[2019-10-12 21:50] LABS: Urine Culture Reflex Order NOT NEEDED
[2019-10-12] MEDS ORDERED: HYDROCODONE/APAP 10/325 TAB ONE (23:02)
[2019-10-13 01:13] VITALS: BMI 27.4
[2019-10-13] MEDS: METRONIDAZOLE 500mg IVPB 500 MG/100 ML BAG IV SCH ×3 (03:02→16:41)
[2019-10-13 03:26] LABS: Basophils % 0.6 % (0-1.3); Hematocrit 26.7 % (36.0-45.0); Lymphocytes % 20.6 % (15.3-44.8); MPV 8.5 fL (7.6-11.3); RBC Red Blood Cell Count 2.97 M/uL (3.86-4.86)
[2019-10-13 03:30] LABS: Potassium 3.9 mmol/L (3.5-5.1)
[2019-10-13 03:31] LABS: Magnesium 1.9 mg/dL (1.8-2.4); Phosphorus 3.6 mg/dL (2.5-4.9)
[2019-10-13] MEDS: ENOXAPARIN 30 MG/0.3 ML SQ SCH (08:02)
[2019-10-13] MEDS: METOPROLOL TAR 25 MG TAB PO SCH ×2 (08:02→22:00)
[2019-10-13] MEDS: CLOPIDOGREL 75 MG TABLET PO SCH (08:02)
[2019-10-13] MEDS: PANTOPRAZOLE 40MG TABLET PO SCH (08:02)
[2019-10-13] MEDS: ASPIRIN 81 MG CHEWABLE TABLET PO SCH (08:02)
[2019-10-13] MEDS: lisinopriL 5 MG TAB PO SCH (08:03)
--- NOTE | 2019-10-13 08:03 | P.PN ---
Subjective Date of Service: 10/13/19 Chief Complaint: Generalize weakness, fever and diarrhea. Patient states she feels better today. She states her cough has improved. She is not having diarrhea this morning. No fever recorded this morning. She is needing only minimal assistance for transfer. Physical Examination - Vital Signs Temperature: 98.7 F Blood Pressure: 145/70 Pulse: 71 Respirations: 16 Pulse Ox (%): 97 - Physical Exam General: Alert, In no apparent distress, Oriented x3 HEENT: Mucous membr. moist/pink Neck: Supple, JVD not distended Respiratory: Clear to auscultation bilaterally, Normal air movement Cardiovascular: No edema, Regular rate/rhythm, Normal S1 S2 Gastrointestinal: Normal bowel sounds, Soft and benign, Non-distended, No tenderness Musculoskeletal: No swelling, No erythema Integumentary: No rashes Neurological: Normal speech, Normal strength at 5/5 x4 extr - Studies Laboratory Data (last 24 hrs) 10/12/19 19:08: WBC 6.7, Hgb 10.0 L, Hct 29.5 L, Plt Count 215 10/12/19 19:08: Sodium 136, Potassium 4.1, BUN 20 H, Creatinine 1.14, Glucose 167 H, Magnesium 2.0, Total Bilirubin 0.4, AST 19, ALT 14, Alkaline Phosphatase < 10 L, Lipase 55 L Microbiology Data (last 24 hrs): 10/12/19 19:10 Nasopharnyx Coronavirus COVID-19 PCR - Final 10/12/19 19:10 Nasopharnyx Influenza Type A Antigen Screen - Final 10/12/19 19:10 Nasopharnyx Influenza Type B Antigen Screen - Final Assessment And Plan - Current Problems (Diagnosis) (1) Enteritis Current Visit: Yes Status: Acute (2) Pleural effusion, left Current Visit: Yes Status: Acute (3) Acute viral disease Current Visit: Yes Status: Acute (4) Coronary artery disease Onset Date: 03/08/17 Current Visit: No Status: Chronic Qualifiers: (5) Normocytic anemia Current Visit: Yes Status: Chronic - Plan Continue supportive measures and IV antibiotics. Avoiding IV fluids at this time given history of congestive heart failure, presence of pleural effusion and elevated BNP. Test for COVID 19 is pending. Hold Lasix Continue other home medications. Stool studies including C. diff rule-out are pending. PT. Monitor for 1 more day. Possible Dc in a.m.
[2019-10-13] MEDS ORDERED: POTASSIUM CL SA 10 MEQ TAB PO ONE (09:00)
[2019-10-13] MEDS: HYDROCODONE/APAP 10/325 TAB PO PRN ×2 (10:27→22:35)
--- NOTE | 2019-10-13 10:56 | EKG ---
Test Date: 2019-10-12 Test Time: 17:32:35 [employer] Operator: BERNICE MEASUREMENT RESULTS: Intervals: Rate: 103 SD: 212 QRSD: 84 QT: 356 QTc: 466 [place]: P: 63 SD: 212 QRS: 25 T: 145 INTERPRETIVE STATEMENTS: Sinus tachycardia with 1st degree AV block ST & T wave abnormality, consider lateral ischemia Abnormal ECG Compared to ECG 09/10/2019 20:55:58 ST (T wave) deviation now present Possible ischemia now present Sinus rhythm no longer present Left posterior fascicular block no longer present Myocardial infarct finding no longer present Electronically Signed On 10-13-19 10:54:01 CDT by Rg Frey
[2019-10-13] MEDS: ACETAMINOPHEN 500 MG TAB PO PRN (16:52)
[2019-10-13] MEDS ORDERED: ONDANSETRON 4 MG/2 ML VIAL IV PRN (17:08)
[2019-10-13] MEDS: TAMSULOSIN 0.4 MG SR CAP PO SCH (20:08)
[2019-10-13] MEDS: GABAPENTIN 100 MG CAP PO SCH (20:08)
[2019-10-13] MEDS: ATORVASTATIN 20 MG TAB PO SCH (20:08)
[2019-10-13] MEDS ORDERED: CEFTRIAXONE/SWI 1gm 1 GM/10 ML SYR IV SCH (21:00)
[2019-10-14] MEDS: METRONIDAZOLE 500mg IVPB 500 MG/100 ML BAG IV SCH ×3 (00:48→16:08)
[2019-10-14 04:47] LABS: Potassium 4.3 mmol/L (3.5-5.1)
[2019-10-14] MEDS: ACETAMINOPHEN 500 MG TAB PO PRN (05:56)
[2019-10-14] MEDS ORDERED: FUROSEMIDE 40 MG/4 ML VIAL IV ONE (06:33)
[2019-10-14 07:53] LABS: Urine Appearance CLEAR; Urine Bilirubin NEGATIVE (NEG); Urine Blood NEGATIVE (NEG); Urine Color YELLOW; Urine Glucose NEGATIVE (NEG); Urine Protein TRACE (NEG); Urine Specific Gravity 1.015 (1.005-1.030); Urine Urobilinogen 0.2 mg/dL (0.2-1.0); Urine pH 5.5 (5.0-7.0)
[2019-10-14] MEDS: lisinopriL 5 MG TAB PO SCH (07:57)
[2019-10-14] MEDS: ENOXAPARIN 30 MG/0.3 ML SQ SCH (07:57)
[2019-10-14] MEDS: CLOPIDOGREL 75 MG TABLET PO SCH (07:57)
[2019-10-14] MEDS: ASPIRIN 81 MG CHEWABLE TABLET PO SCH (07:57)
[2019-10-14] MEDS: METOPROLOL TAR 25 MG TAB PO SCH ×2 (07:57→21:13)
[2019-10-14 08:00] LABS: Urine Microscopic Reflex ORDER UMIC
[2019-10-14] MEDS: PANTOPRAZOLE 40MG TABLET PO SCH (08:03)
[2019-10-14 08:36] LABS: Urine Bacteria >50 /HPF (<20); Urine RBC <5 /HPF (NONE SEEN); Urine Yeast PRESENT (NONE SEEN)
[2019-10-14 08:37] LABS: Urine Culture Reflex Order NOT NEEDED
--- NOTE | 2019-10-14 10:56 | P.PN ---
Subjective Date of Service: 10/14/19 Chief Complaint: Generalize weakness, fever and diarrhea. Patient reports feeling better. She has been having intermittent fever. She denies shortness of breath. Nursing staff reports her functional performance has improved. She is now transfer without assistance. She has intermittent diarrhea. Physical Examination - Vital Signs Temperature: 101.3 F Blood Pressure: 134/73 Pulse: 88 Respirations: 18 Pulse Ox (%): 94 - Physical Exam General: Alert, In no apparent distress, Oriented x3 Neck: Supple Respiratory: Clear to auscultation bilaterally, Normal air movement Cardiovascular: No edema, Regular rate/rhythm, Normal S1 S2 Gastrointestinal: Normal bowel sounds, Soft and benign, No tenderness Musculoskeletal: No swelling Integumentary: No rashes Neurological: Normal speech, Normal strength at 5/5 x4 extr - Studies Microbiology Data (last 24 hrs): 10/12/19 21:15 Stool Fecal Leukocyte Stain - Final Assessment And Plan - Current Problems (Diagnosis) (1) Enteritis Current Visit: Yes Status: Acute (2) Pleural effusion, left Current Visit: Yes Status: Acute (3) Acute viral disease Current Visit: Yes Status: Acute (4) Coronary artery disease Onset Date: 03/08/17 Current Visit: No Status: Chronic (5) Normocytic anemia Current Visit: Yes Status: Chronic - Plan Continue supportive measures and IV antibiotics. Avoiding IV fluids at this time given history of congestive heart failure, presence of pleural effusion and elevated BNP. COVID 19 is positive Continue to hold lasix Continue other home medications. Stool studies including C. diff rule-out are pending. Urine culture is also pending. PT. Mild drop in hemoglobin noted. Continue to monitor hemoglobin and transfuse p.r.n. for hemoglobin less than 8. Consult to pulmonary. Droplet isolation.
--- NOTE | 2019-10-14 12:24 | P.CNS ---
Date of Consult: 10/14/19 Reason for Consult: Velez virus infection Chief Complaint: Generalize weakness, fever and diarrhea. History of Present Illness: Patient is 78 years of age had a coronary artery bypass grafting was discharge into admitted to the hospital with fever aches diarrhea for the past 4 days she currently denies any shortness of breath cough chest pain feeling well currently exposed to her grandchildren patient is still running a borderline fever Allergies iodine Allergy (Verified 09/11/19 02:26) Itching/Hives/Rash propoxyphene napsylate [From Darvocet-N] Adverse Reaction (Intermediate, Verified 09/11/19 02:26) Nausea/Vomiting cauliflower Adverse Reaction (Verified 09/11/19 02:26) Nausea/Vomiting egg Adverse Reaction (Verified 09/11/19 02:26) Nausea/Vomiting Dvpufzc-Ryw-Xjs Reductase Inhibitor Adverse Reaction (Verified 09/11/19 02:26) Nausea/Vomiting Home Medications: Aspirin [Pura Chewable Aspirin] 81 mg PO DAILY 09/16/13 Clopidogrel Bisulfate [Plavix*] 75 mg PO DAILY #0 tablet 09/19/13 Hydrocodone Bit/Acetaminophen [Hydrocodon-Acetaminophn 10-500] 1 tab PO Q4H PRN #0 tablet 09/19/13 Atorvastatin Calcium 20 mg PO BEDTIME 10/12/19 Gabapentin 100 mg PO BEDTIME 10/12/19 Lisinopril [Zestril] 1 tab PO DAILY 10/12/19 Metformin HCl 1 tab PO DAILY 10/12/19 Metoprolol Tartrate 25 mg PO BID 10/12/19 Pantoprazole [Protonix Tab*] 1 tab PO DAILY 10/12/19 Tamsulosin HCl 1 cap PO BEDTIME 10/12/19 - Past Medical/Surgical History Diabetic: No -: Hypertension -: Clots in the legs -: CAD -: CHF -: History of [place] -: Arthritis -: Spider bites in legs -: 3-pinged nerves at the back/sciatic nerve -: Neuropathy -: Chronic back pain -: Cardiac Stents CABG -: Endoscopy -: Tubal Ligation -: Hysterectomy -: L knee repair -: galbladder removed -: hemorrhoidectomy -: clots in legs removed - Family History Brother Medical History: Heart disease, Hypertension Father Medical History: Heart disease, Hypertension - Social History Smoking Status: Unknown if ever smoked Alcohol use: No CD- Drugs: No Caffeine use: Yes Place of Residence: Home Review of Systems 10-point ROS is otherwise unremarkable General: Fever, Weakness Physical Examination Temp Pulse Resp BP Pulse Ox 101.3 F H 88 18 134/73 94 10/14/19 10:56 10/14/19 10:56 10/14/19 10:56 10/14/19 10:56 10/14/19 10:56 General: Alert, Oriented x3 Laboratory Data (last 24 hrs) 10/14/19 04:03: Sodium 139, Potassium 4.3, BUN 17, Creatinine 1.12, Glucose 97 - Problems (1) Coronavirus infection Current Visit: Yes Status: Acute Plan: Patient is 78 years of age status post CABG admitted with fever and weakness saturation is satisfactory vital signs are stable patient is mildly anemic recommend discharge on prednisone 10 mg twice a day for 7 days and an to use Tylenol on a p.r.n. basis chest x-ray is clear no significant findings on a CT scan no antibiotics stroke necessary
[2019-10-14] MEDS: HYDROCODONE/APAP 10/325 TAB PO PRN (13:44)
[2019-10-14] MEDS: dexAMETHasone 4 MG/ML VIAL IV SCH ×2 (14:09→16:08)
[2019-10-14] MEDS ORDERED: ALBUTEROL INHALER 60 PUFF/8 GM IH PRN (16:16)
[2019-10-14] MEDS: levoFLOXacin 500 MG TAB PO SCH (21:12)
[2019-10-14] MEDS: TAMSULOSIN 0.4 MG SR CAP PO SCH (21:12)
[2019-10-14] MEDS: ATORVASTATIN 20 MG TAB PO SCH (21:13)
[2019-10-14] MEDS: metroNIDAZOLE 500 MG TABLET PO SCH (21:13)
[2019-10-14] MEDS: GABAPENTIN 100 MG CAP PO SCH (21:13)
[2019-10-15] MEDS: dexAMETHasone 4 MG TAB PO SCH ×4 (00:07→23:38)
[2019-10-15] MEDS: HYDROCODONE/APAP 10/325 TAB PO PRN ×2 (05:38→19:08)
[2019-10-15] MEDS: METOPROLOL TAR 25 MG TAB PO SCH ×2 (08:51→20:23)
[2019-10-15] MEDS: metroNIDAZOLE 500 MG TABLET PO SCH (08:51)
[2019-10-15] MEDS: levoFLOXacin 500 MG TAB PO SCH (08:51)
[2019-10-15] MEDS: CLOPIDOGREL 75 MG TABLET PO SCH (08:51)
[2019-10-15] MEDS: ASPIRIN 81 MG CHEWABLE TABLET PO SCH (08:53)
[2019-10-15] MEDS: lisinopriL 5 MG TAB PO SCH (08:54)
[2019-10-15] MEDS: ENOXAPARIN 30 MG/0.3 ML SQ SCH (08:54)
[2019-10-15] MEDS: PANTOPRAZOLE 40MG TABLET PO SCH (08:54)
[2019-10-15] MEDS: Meropenem 1,000 MG in NA CHLORIDE 0.9% 100 ML IV SCH ×2 (11:30→22:30)
--- NOTE | 2019-10-15 18:50 | P.PN ---
Subjective Date of Service: 10/15/19 Chief Complaint: Generalize weakness, fever and diarrhea. Subjective: Improving (Some improvement noted) Physical Examination - Vital Signs Temperature: 98.6 F Blood Pressure: 140/67 Pulse: 70 Respirations: 18 Pulse Ox (%): 94 - Physical Exam General: Alert Neck: Supple Respiratory: Clear to auscultation bilaterally, Normal air movement Cardiovascular: Normal pulses, Regular rate/rhythm Gastrointestinal: Normal bowel sounds, No masses, No rebound, No guarding Neurological: Normal speech - Studies Microbiology Data (last 24 hrs): 10/12/19 21:19 Clean Catch Urine [place] Count - Final >100,000 CFU/ML. 10/12/19 21:19 Clean Catch Urine - Final Escherichia Coli Esbl Medications List Reviewed: Yes Assessment & Plan Discharge Plan: Home (With IV antibiotic therapy) Plan to discharge in: 24 Hours Physician Review Additional Text: Impression: UTI, urine culture positive for E coli-ESBL Hypertension Anemia of chronic disease Plan: Patient is positive for ESBL. Meropenem initiated. Spoke with social services counselor about the possibility of home IV antibiotic therapy to be continued for a total of 7 days. Spoke with patient and she agrees. Patient also has home health. Continue current medications at this time. Anticipate possible discharge denae rrow if home IV antibiotic therapy can be arranged. PICC line has been ordered. Time Spent Managing Pts Care (In Minutes): 55
[2019-10-15] MEDS: ATORVASTATIN 20 MG TAB PO SCH (20:22)
[2019-10-15] MEDS: TAMSULOSIN 0.4 MG SR CAP PO SCH (20:22)
[2019-10-15] MEDS: GABAPENTIN 100 MG CAP PO SCH (20:23)
[2019-10-16] MEDS: HYDROCODONE/APAP 10/325 TAB PO PRN ×3 (03:35→19:01)
[2019-10-16] MEDS: CLOPIDOGREL 75 MG TABLET PO SCH (08:19)
[2019-10-16] MEDS: METOPROLOL TAR 25 MG TAB PO SCH ×2 (08:19→19:01)
[2019-10-16] MEDS: PANTOPRAZOLE 40MG TABLET PO SCH (08:19)
[2019-10-16] MEDS: ASPIRIN 81 MG CHEWABLE TABLET PO SCH (08:19)
[2019-10-16] MEDS: ENOXAPARIN 30 MG/0.3 ML SQ SCH (08:19)
[2019-10-16] MEDS: dexAMETHasone 4 MG TAB PO SCH ×2 (08:20→17:16)
[2019-10-16] MEDS: lisinopriL 5 MG TAB PO SCH (08:20)
[2019-10-16] MEDS: Meropenem 1,000 MG in NA CHLORIDE 0.9% 100 ML IV SCH ×2 (08:30→19:00)
[2019-10-16] MEDS ORDERED: LIDOCAINE 4% PATCH TOP SCH (09:00)
[2019-10-16] MEDS ORDERED: LIDOCAINE 5% 30 GM TUBE (for wound healing center only) TOP SCH (09:00)
--- NOTE | 2019-10-16 16:17 | P.DS ---
Admission Date: 10/14/19 Discharge Date: 10/16/19 Primary Care Provider: none Disposition: ROUTINE DISCHARGE Discharge Condition: FAIR Reason for Admission: Generalized weakness, fever and diarrhea. Consultations: Pulmonary-Dr. Hall Procedures: CXR: FINDINGS: CABG surgical changes are new from comparison. Atelectasis in left base pleural effusion are present. Left base infiltrate is lesser in likelihood. Left-sided findings are not uncommon after a CABG procedure. Right lung field is clear. Heart and vasculature are normal. No measurable pleural effusion and no pneumothorax. No acute bony abnormality seen. No acute aortic findings suspected. IMPRESSION: CABG surgical changes are noted. Left lung base pleural effusion and atelectasis are common after surgery. CT AB: FINDINGS: Small left pleural effusion present with left base atelectasis. Small pericardial effusion is present. The liver, spleen and pancreas show no suspicious findings on non-contrast imaging. Cholecystectomy clips are present. No biliary tree dilatation. No hydronephrosis or suspicious renal mass. No significant adrenal finding. Isodense renal masses and pyelonephritis cannot be excluded in the absence of IV contrast. The urinary bladder is without significant finding. Uterus is absent. Ovaries are absent or atrophic. No gastric dilatation. Bañuelos of the antrum are accentuated. This is probably due to a lack of gastric content and peristalsis. A mild antritis cannot be excluded. There is no stranding or edema in the adjacent fat. Duodenum and remainder of small bowel are unremarkable. No acute colon process. Patient has moderately prominent diverticulosis without diverticulitis findings. No free air, free fluid or inflammatory stranding. No hernia, mass or bulky lymphadenopathy. Disc and bony degenerative changes are present. Patient has spinal stenosis at the L4-5 level.No acute vascular finding suspected. IMPRESSION: No bowel obstruction, free air or surgically emergent finding. Gastric bañuelos are accentuated probably due to lack of intraluminal content. Mild gastritis/antritis cannot be excluded. Gallbladder is absent. Pancreas and biliary tree show no suspicious findings. Medical Problem List: UTI, urine culture positive for E coli-ESBL COVID Positive upper respiratory infection Hypertension Diabetes mellitus type 2 [id number] Hyperlipidemia Chronic pain Anemia of chronic disease CAD Recent CABG Brief History of Present Illness: 70-year-old female presented to the emergency room with fever, weakness and diarrhea. Patient with history of CAD status post CABG. Patient had fever, cough. Chest x-ray showed bilateral interstitial opacities. Patient was admitted for further evaluation. Hospital Course: Patient presented with fever, weakness and diarrhea. Patient found to have UTI, urine culture positive for E coli-ESBL. Patient required IV antibiotic therapy- meropenem. Patient also was positive for COVID 19. Patient seen and evaluated by pulmonology. During the course of her stay she the patient improved. PICC line placed. At discharge home health will be arranged to continue IV antibiotic therapy-meropenem 500 mg twice daily for total 7 days. Recommend to recheck urine culture after that time. PICC line can be removed. Yeast was also found. Therefore patient will continue with Diflucan 100 mg daily for 7 days. Patient plans to establish care with a local PCP to continue her care. For her COVID infection patient was seen by pulmonology. Pulmonology recommended steroid treatment. Patient has done well. Patient not requiring any oxygen. At discharge patient will continue with prednisone 10 mg 1 pill twice daily for 7 days. Recommend follow up with pulmonology in 7 days to monitor her progress. Patient with diabetes mellitus type 2 [id number]. At discharge she will continue with medication of metformin daily. Recommend to maintain blood sugars less 140 fasting and less than 200 after meals. Further adjustment can be done by her PCP. Patient with recent history of CABG due to CAD. Patient also with hypertension and hyperlipidemia. At discharge she will continue with aspirin 81 mg daily, Lipitor 20 mg daily, Plavix 75 mg daily, Zestril 2.5 mg daily, and metoprolol 25 mg 1 pill twice daily. Patient with chronic pain. At discharge she will continue with gabapentin as previous along with hydrocodone as directed. Patient with anemia chronic disease. At discharge she will continue with iron supplementation daily. Recommend to recheck lab-CBC in 2-4 weeks. Vital Signs/Physical Exam: Temp Pulse Resp BP Pulse Ox 97.9 F 65 20 121/61 96 10/16/19 12:00 10/16/19 12:00 10/16/19 14:30 10/16/19 12:10/16/19 14:30 General: Alert, In no apparent distress, Oriented x3, Cooperative HEENT: Atraumatic Neck: Supple Respiratory: Clear to auscultation bilaterally, Normal air movement Cardiovascular: Normal pulses, Regular rate/rhythm Gastrointestinal: Normal bowel sounds, Soft and benign, Non-distended, No masses, No rebound, No guarding Musculoskeletal: No erythema, No tenderness, No warmth Integumentary: No erythema, No warmth, No cyanosis, Other (Postsurgical changes to the chest) Neurological: Normal speech, Normal strength at 5/5 x4 extr, Normal tone Laboratory Data at Discharge: WBC 4.8 K/uL (4.3-10.9) D 10/13/19 03:06 Hgb 9.0 g/dL (12.0-15.0) L 10/13/19 03:06 Hct 26.7 % (36.0-45.0) L 10/13/19 03:06 Plt Count 181 K/uL (152-406) 10/13/19 03:06 Sodium 139 mmol/L (136-145) 10/14/19 04:03 Potassium 4.3 mmol/L (3.5-5.1) 10/14/19 04:03 BUN 17 mg/dL (7-18) 10/14/19 04:03 Creatinine 1.12 mg/dL (0.55-1.3) 10/14/19 04:03 Glucose 97 mg/dL (74-106) 10/14/19 04:03 Phosphorus 3.6 mg/dL (2.5-4.9) 10/13/19 03:06 Magnesium 1.9 mg/dL (1.8-2.4) 10/13/19 03:06 Total Bilirubin 0.4 mg/dL (0.2-1.0) 10/12/19 19:08 AST 19 U/L (15-37) 10/12/19 19:08 ALT 14 U/L (12-78) 10/12/19 19:08 Alkaline Phosphatase < 10 U/L (45-117) L 10/12/19 19:08 Lipase 55 U/L (73-393) L 10/12/19 19:08 Home Medications: Aspirin [Pura Chewable Aspirin] 81 mg PO DAILY 09/16/13 Clopidogrel Bisulfate [Plavix*] 75 mg PO DAILY #0 tablet 09/19/13 Hydrocodone Bit/Acetaminophen [Hydrocodon-Acetaminophn 10-500] 1 tab PO Q4H PRN #0 tablet 09/19/13 Atorvastatin Calcium 20 mg PO BEDTIME 10/12/19 Gabapentin 100 mg PO BEDTIME 10/12/19 Lisinopril [Zestril] 1 tab PO DAILY 10/12/19 Metformin HCl 1 tab PO DAILY 10/12/19 Metoprolol Tartrate 25 mg PO BID 10/12/19 Pantoprazole [Protonix Tab*] 1 tab PO DAILY 10/12/19 Tamsulosin HCl 1 cap PO BEDTIME 10/12/19 Prednisone [Sterapred Ds] 10 mg PO BID #14 tab.ds.pk 10/14/19 Fluconazole [Diflucan] 100 mg PO DAILY #7 tablet 10/16/19 Lidocaine 4% Patch [Lidoderm 5% Patch*] 1 patch TOP DAILY #30 patch 10/16/19 New Medications: Fluconazole [Diflucan] 100 mg PO DAILY #7 tablet Lidocaine 4% Patch [Lidoderm 5% Patch*] 1 patch TOP DAILY #30 patch Prednisone [Sterapred Ds] 10 mg PO BID #14 tab.ds.pk Patient Discharge Instructions: 1. Patient presented with fever, weakness and diarrhea. Patient found to have UTI, urine culture positive for E coli-ESBL. Patient required IV antibiotic therapy-meropenem. Patient also was positive for COVID 19. Patient seen and evaluated by pulmonology. During the course of her stay she the patient improved. PICC line placed. At discharge home health will be arranged to continue IV antibiotic therapy-meropenem 500 mg twice daily for total 7 days. Recommend to recheck urine culture after that time. PICC line can be removed. Yeast was also found. Therefore patient will continue with Diflucan 100 mg daily for 7 days. Patient plans to establish care with a local PCP to continue her care. 2. For her COVID infection patient was seen by pulmonology. Pulmonology recommended steroid treatment. Patient has done well. Patient not requiring any oxygen. At discharge patient will continue with prednisone 10 mg 1 pill twice daily for 7 days. Recommend follow up with pulmonology in 7 days to monitor her progress. 3. Patient with diabetes mellitus type 2 [id number]. At discharge she will continue with medication of metformin daily. Recommend to maintain blood sugars less 140 fasting and less than 200 after meals. Further adjustment can be done by her PCP. 4. Patient with recent history of CABG due to CAD. Patient also with hypertension and hyperlipidemia. At discharge she will continue with aspirin 81 mg daily, Lipitor 20 mg daily, Plavix 75 mg daily, Zestril 2.5 mg daily, and metoprolol 25 mg 1 pill twice daily. 5. Patient with chronic pain. At discharge she will continue with gabapentin as previous along with hydrocodone as directed. 6. Patient with anemia chronic disease. At discharge she will continue with iron supplementation daily. Recommend to recheck lab-CBC in 2-4 weeks. Diet: Regular Activity: Fall precautions Followup: Garett Hall MD [ACTIVE - CAN ADMIT] - Time spent managing pt's care (in minutes): 55
--- NOTE | 2019-10-16 16:40 | RAD REPORT ---
EXAM DESCRIPTION: RAD - Chest Single View - 10/16/2019 4:15 pm CLINICAL HISTORY: Device placement PICC line placement IMPRESSION: PICC line has been placed with its tip in the superior vena cava
[2019-10-16] MEDS: ATORVASTATIN 20 MG TAB PO SCH (19:01)
[2019-10-16] MEDS: GABAPENTIN 100 MG CAP PO SCH (19:01)
[2019-10-16] MEDS: TAMSULOSIN 0.4 MG SR CAP PO SCH (19:01)
[2019-10-16 19:20] VITALS: BP 154/65
[2019-10-16 19:21] VITALS: TEMP 97.2
[2019-10-16 19:23] VITALS: O2SAT 96
== END 2019-10-16 21:20 | disposition home health service (06) | DRG 178 ==
LOC: ER 17:43 → ERHOLD 21:51 → 4TH 10-13 01:48 → OBSVTOIN 10-14 11:05
PROVIDERS: ADMIT Internal Medicine; ATTEND Internal Medicine
PROC: 8E0ZXY6 Isolation (ICD-10-PCS; principal; 2019-10-14)
PROC: 02HV33Z Insertion of Infusion Device into Superior Vena Cava, Percutaneous Approach (ICD-10-PCS; 2019-10-16)
DX: U07.1 COVID-19 (principal); E87.2 Acidosis; N39.0 Urinary tract infection, site not specified; J90 Pleural effusion, not elsewhere classified; I25.10 Atherosclerotic heart disease of native coronary artery without angina pectoris; Z95.1 Presence of aortocoronary bypass graft; Z88.6 Allergy status to analgesic agent; Z91.012 Allergy to eggs; Z88.8 Allergy status to other drugs, medicaments and biological substances; Z91.018 Allergy to other foods; Z79.82 Long term (current) use of aspirin; Z79.02 Long term (current) use of antithrombotics/antiplatelets; Z79.891 Long term (current) use of opiate analgesic; Z79.899 Other long term (current) drug therapy; I10 Essential (primary) hypertension; I25.2 Old myocardial infarction; Z98.51 Tubal ligation status; Z90.710 Acquired absence of both cervix and uterus; Z95.5 Presence of coronary angioplasty implant and graft; Z90.49 Acquired absence of other specified parts of digestive tract; K52.9 Noninfective gastroenteritis and colitis, unspecified; B96.20 Unspecified Escherichia coli [E. coli] as the cause of diseases classified elsewhere; E11.9 Type 2 diabetes mellitus without complications; E78.5 Hyperlipidemia, unspecified; G89.29 Other chronic pain; D63.8 Anemia in other chronic diseases classified elsewhere
CPT/HCPCS: 36415; 36569; 71045; 74176; 76377; 80048; 80076; 81003; 81015; 82947; 83605; 83690; 83735; 83880; 84100; 84484; 85025; 87040; 87045; 87046; 87077; 87086; 87088; 87186; 87804; 89055; 93005; 94760; 96361; 96374; 96375; 99285; G0378; J0696; J1650; J1940; J2185; J2405; J7030; J8540; U0002

== ENCOUNTER 2020-07-24 17:12 | Inpatient (IN) | payer OTHER ==
--- OUTSIDE RECORDS SUMMARY | 2020-07-24 17:18 | XMS REPORT | Continuity of Care Document ---
:1940 Author Organization [facility] t Address [address] [place] [address] Care Team Providers Name Role Phone Pcp Primary Care Physician Unavailable Michelle HERBERT Attending Clinician Truman Ta Attending Clinician TRUMAN TA Attending Clinician Unavailable Annette Correa MD Attending Clinician Geoffrey Meredith MD Attending Clinician ANNETTE CORREA Attending Clinician Unavailable Anjel Linares MD Attending Clinician Michael ANTHONY Attending Clinician Michael Montana MD Attending Clinician TRUMAN TA Admitting Clinician Unavailable ANNETTE CORREA Admitting Clinician Unavailable Payers Payer Name Policy Type Policy Effective Date Expiration Date Sour ce Number MEDICAREMEDICARE A [id number] 2005 SATNAM Shelton [id number] 2005-P 00:00:00 - [facility] TORREZ [id number] 2010 SATNAM Perdomo MEDICAIDMEDICAID 00:00:00 - Medica l [id number] Ce nter 11-Present Problems Condition Condition Condition Status Onset Resolution Last Treating Co mments Source Name Details Category Date Date Treatment Clinician Date CHF CHF Disease Active [facility] (congestiv (congestiv 09-14 Marci kes - e heart e heart 00:00: Medical failure) failure) 00 [facility] Coronary Coronary Disease Active [facility] artery artery 09-14 kes - disease disease 00:00: Medical 00 [facility] Chronic Chronic Disease Active [facility] back pain back pain 09-14 [facility] - 00:00: Medical 00 [facility] Arthritis Arthritis Disease Active [facility] 09[facility]14 [facility] - 00:[facility]: Medical 00 [facility] NSTEMI NSTEMI Disease Active [facility] (non-ST (non-ST 09-11 [facility] - elevated elevated 00:00: Medica l myocardial myocardial 00 Ce nter infarction infarction ) ) S/P ACB x2 S/P ACB x2 Disease Active [facility] EMANUEL TO EMANUEL TO [facility] - LAD and LAD and Medical SAPHENOUS SAPHENOUS Cent er VEIN TO OM VEIN TO OM Dr. Dr. Nan Montana 09/14/2019 09/14/2019 Acute Acute Disease Active [facility] blood loss blood loss ke - anemia anemia [facility] Acute Acute Disease Active [facility] respirator respirator kes - y y Medical insufficie insufficie Ce nter ncy ncy Hypovolemi Hypovolemi Disease Active [facility] c shock c shock [facility] Vasogenic Vasogenic Disease Active [facility] shock shock [facility] Metabolic Metabolic Disease Active [facility] acidosis acidosis [facility] Allergies, Adverse Reactions, Alerts Allergy Allergy Status Severity Reaction(s) Onset Inactive Treating Comm ents Source Name Type Date Date Clinician Cauliflo Propensi Active Nausea And [facility] wer ty to Vomiting 09-11 [facility] - adverse 00:00: Medical reaction 00 Center s Propoxyp Propensi Active Nausea And [facility] hene ty to Vomiting 09-11 [facility] - N-Acetam adverse 00:00: Medical inophen reaction 00 Center s Iodine Propensi Active Rash [facility] And ty to 09-11 [facility] - Iodide adverse 00:00: Medical Containi reaction 00 Center ng s Products Statins- Propensi Active Nausea And [facility] Hmg-Coa ty to Vomiting 09-11 [facility] - Reductas adverse 00:00: Medical e reaction 00 Center Inhibito s rs Social History Social Habit Start Date Stop Date Quantity Comments Source History SDOH [facility] - Alcohol Std Drinks Medica l Center History SDOH [facility] - Alcohol Binge Medical Reynaldo ter Sex Assigned At [facility] Alcohol intake 2019-09-14 2019-09-14 Current [facility] Irish es - 00:00:00 00:00:00 non-drinker of Medical Ce nter alcohol (finding) History SDOH 2019-09-12 2019-09-12 1 [facility] - Alcohol Frequency 00:00:00 00:00:00 [facility] Center Smoking Status Start Date Stop Date Source Never smoker [facility] edical [facility] Medications Ordered Filled Start Stop Current Ordering Indication Dosage Frequency Signature Comments Components Source Medication Medication Date Date Medication? Clinician (SIG) Name Name lisinopriL No 2.5mg QD Take [address] [facility] [address] (PRINIVIL,Z 09-30 tablet [facility] - ESTRIL) 2.5 00:00: 23:59 (2.5 mg Me dical MG tablet 00 :00 total) by Cente r mouth daily. ramipriL No 10mg QD Take [address] (ALTACE) 10 09-2924 by mouth Irish es - MG capsule 10:29: 00:00 daily. Medi deep 51 :00 Tolar pantoprazol Yes 40mg QD Take [address] [facility] [facility] e 6-24 tablet (40 [facility] - (PROTONIX) 00:00: mg total) Me dical 40 MG 00 by mouth Center tablet daily. clopidogreL 2020- No 75mg QD Take [address] [facility] (PLAVIX) 75 6-24 -24 tablet (75 L ukes - mg tablet 00:00: 23:59 mg total) Me dical 00 :00 by mouth Center daily. aspirin 81 2020- No 81mg QD Take [address] [facility] MG chewable 6-24 -24 tablet (81 L ukes - tablet 00:00: 23:59 mg total) Medic al 00 :00 by mouth Center daily. metFORMIN 2020- No 500mg Take [address] [facility] (GLUCOPHAGE 6-24 -24 tablet [facility] - ) 500 MG 00:00: 23:59 (500 mg Medic al tablet 00 :00 total) by Center mouth daily with breakfast. furosemide 2019-0 2020- No 20mg QD Take [address] [facility] (LASIX) 20 6-24 06-24 tablet (20 Marci kes - MG tablet 00:00: 00:00 mg total) Me dical 00 :00 by mouth Center daily. clopidogreL 2019-0 2020- No 75mg QD Take [address] [facility] (PLAVIX) 75 6-24 06-23 tablet (75 L ukes - mg tablet 00:00: 00:00 mg total) Me dical 00 :00 by mouth Center daily. metFORMIN 2019-0 2020- No 500mg Take [address] [facility] (GLUCOPHAGE 6-24 06-23 tablet [facility] - ) 500 MG 00:00: 00:00 (500 mg Medic al tablet 00 :00 total) by Center mouth daily with breakfast. pantoprazol 2019-0 2020- No 40mg QD Take [address] [facility] [facility] e 6-24 06-23 tablet (40 [facility] - (PROTONIX) 00:00: 00:00 mg total) M edical 40 MG 00 :00 by mouth Center tablet daily. clopidogreL 2019-0 2020- No 75mg QD Take [address] (PLAVIX) 75 6-24 06-23 tablet (75 L ukes - mg tablet 00:00: 00:00 mg total) Me dical 00 :00 by mouth Center daily. metFORMIN 2019-0 2020- No 500mg Take [address] [facility] (GLUCOPHAGE 6-24 06-23 tablet [facility] - ) 500 MG 00:00: 00:00 (500 mg Medic al tablet 00 :00 total) by Center mouth daily with breakfast. pantoprazol 2019-0 2020- No 40mg QD Take [address] [facility] [facility] e 6-24 06-23 tablet (40 [facility] - (PROTONIX) 00:00: 00:00 mg total) M edical 40 MG 00 :00 by mouth Center tablet daily. furosemide 2019-0 2020- No 20mg QD Take [address] [facility] (LASIX) 20 6-24 06-23 tablet (20 Marci kes - MG tablet 00:00: 00:00 mg total) Me dical 00 :00 by mouth Center daily. ranitidine 2019-0 2020- No heartburn 150mg Take [address] [facility] [facility] (ZANTAC) 6- 06-23 mg by [facility]ukes - 150 MG 17:25: 00:00 mouth Medical tablet 51 :00 daily as Center needed for Heartburn. aspirin 81 2019- No 81mg QD Take [address] MG chewable -09-28 by mouth Irish es - tablet 14:12: 00:00 daily. Medical 30 :00 Center clopidogreL 2019-2019- No 75mg QD Take [address] [facility] (PLAVIX) 75 -28 09-23 by mouth Irish es - mg tablet 14:12: 00:00 daily. Medic al 30 :00 Center metoprolol 2019- No 75mg Q.5D Take [address] tartrate 09-28 by mouth 2 Luke s - (LOPRESSOR) 14:12: 00:00 (two) Medi deep 25 MG 30 :00 times Center tablet daily. HYDROcodone 2019- No 1{tbl} Take [address] -acetaminop -28 09- tablet by Marci faria (NORCO 14:12: 00:00 mouth Medic al 10-325) 30 :00 every 4 Center 10-325 mg (four) per tablet hours as needed for Pain. gabapentin 2019- No 100mg QD Take [address] (NEURONTIN) 6-28 09- mg by [facility] - 100 MG 14:12: 00:00 mouth Medical capsule 30 :00 nightly. Center glucometer Yes 1{each} [address] [facility] (FREESTYLE) 6-23 Other - [facility] - Misc 00:00: See Admin Medical 00 Instructio Center ns route daily as needed for up to 1 day One. methyl 2019- Yes 5g Apply [address] salicylate- 6-23 topically Irish es - menthol 00:00: 3 (three) Medic al 15-10 % 00 times Center Crea daily as needed. lancets-blo Yes 1{each} [address] [facility] od glucose 6-23 Miscellane Riish es - strips 30 00:00: ous route Med ical gauge Cmpk 00 daily as Cente r needed. tamsulosin Yes .4mg QD Take 1 [facility] t (FLOMAX) 6-23 capsule [facility] - 0.4 mg Cap 00:00: (0.4 mg Medi deep 24 hr 00 total) by Center capsule mouth nightly. senna 2020- No 17.2mg QD Take [address] (SENOKOT) 09-28- tablets [facility]ukes - 8.6 mg 00:00: 23:59 (17.2 mg Medica l tablet 00 :00 total) by Center mouth nightly. sodium 2020- No 1{spray [address] chloride 09-28 } Nasal [facility]ukes - 0.65% 00:00: 23:59 route as Medical (OCEAN) 00 :00 needed. Center 0.65 % nasal spray atorvastati 2020- No 20mg QD Take [address] [facility] n (LIPITOR) 09-28 tablet (20 L ukes - 20 MG 00:00: 23:59 mg total) Medica l tablet 00 :00 by mouth Center nightly. metoprolol 2020- No 25mg Q.5D Take [address] tartrate 09-28 tablet (25 Luke s - (LOPRESSOR) 00:00: 23:59 mg total) Medical 25 MG 00 :00 by mouth 2 Center tablet (two) times daily Hold for heart rate < 60 or SBP < 100. gabapentin 2020- No 100mg QD Take [address] (NEURONTIN) 09-28 capsule Luke s - 100 MG 00:00: 23:59 (100 mg Medical capsule 00 :00 total) by Center mouth nightly. ipratropium 2020- No 3mL Take [address] -albuteroL 09-2818 by Nikita - (DUO-NEB) 00:00: 23:59 nebulizati M edical 0.5 mg-3 00 :00 on every 6 Cente r mg(2.5 mg (six) base)/3 mL hours as nebulizer needed for solution Wheezing or Shortness of Breath for up to 360 days. lidocaine 2019- No 1{patch Q24H Place 1 [...] ) for up to 10 days. docusate 2020- No 200mg Q.5D Take 2 [facility] t sodium 09-28 capsules [facility]ukes - (COLACE) 00:00: 23:59 (200 [...] 00 :00 by mouth Center nightly. lidocaine 2020- No 1{patch Q24H Place [address] (LIDODERM) 09-28 } patch onto Marci kes - 5 % patch 00:00: 00:00 the skin Med ical 00 :00 daily for Center 30 days Remove & Discard patch within 12 hours or as directed by . tamsulosin 2020- No .4mg QD Take [address] (FLOMAX) 09-28 capsule [facility]ukes - 0.4 mg Cap 00:00: 00:00 (0.4 mg Med ical 24 hr 00 :00 total) by Center capsule mouth nightly. glucometer 2020- No 1{each} [address] (FREESTYLE) 09-28 Other - Luke s - Misc 00:00: 00:00 See Admin Medical 00 :00 Instructio Center ns route daily as needed for up to 1 day One. gabapentin 2019-2019- No 100mg QD Take [address] [facility] (NEURONTIN) 09-28 capsule Luke s - 100 MG 00:00: 00:00 (100 mg Medical capsule 00 :00 total) by Center mouth nightly. lidocaine 2019-2019- No 1{patch Q24H Place 1 C HI [...] 25 MG 00 :00 by mouth 2 Tolar tablet (two) times daily Hold for heart rate < 60 or SBP < 100. tamsulosin 2019- No .4mg QD Take [address] [facility] (FLOMAX) 09-28 capsule [facility]ukes - 0.4 mg Cap 00:00: 00:00 (0.4 mg Med ical 24 hr 00 :00 total) by Center capsule mouth nightly. ipratropium 2019- No 3mL Take [address] -albuteroL 09-28 by Marcikes - (DUO-NEB) 00:00: 00:00 nebulizati M edical 0.5 mg-3 00 :00 on every 6 Cente r mg(2.5 mg (six) base)/3 mL hours as nebulizer needed for solution Wheezing or Shortness of Breath for up to 360 days. Immunizations Ordered Immunization Filled Immunization Date Status Commen ts Source Name Name Pneumococcal 2019-09-[address] [facility] - Conjugate (Prevnar) 00:00:00 Medic al Tolar 13-Valent Vital Signs Vital Name Observation Time Observation Value Comments Source Systolic blood 2019-09-30 08:52:00 112 mm[Hg] [facility] pressure [facility] Diastolic blood 2019-09-30 08:52:00 56 mm[Hg] [facility] Heart rate 2019-09-30 08:52:00 91 /min [facility] Body temperature 2019-09-30 04:52:00 36.28 Mercedes [facility] Respiratory rate 2019-09-30 04:52:00 18 /min [facility] Body weight 2019-09-30 04:52:00 70.852 kg [facility] BMI 2019-09-30 04:52:00 28.49 kg/m2 [facility] Oxygen saturation in 2019-09-30 04:52:00 95 /min [facility] - Arterial blood by Medical Ce nter Pulse oximetry Body height 2019-09-18 19:45:00 157.7 cm [facility] Procedures Procedure Date / Time Performed Performing Clinician [facility] e SARS-COV2/RT-PCR ([facility] & 2019-10-12 19:10:00 [facility] - REF LABS) [facility] POCT-GLUCOSE METER 2019-09-30 06:05:00 [facility] Medical Ce nter BASIC METABOLIC PANEL (7) 2019-09-30 02:00:00 Madeleine Rojas [facility], [facility] BASIC METABOLIC PANEL (7) 2019-09-29 09:13:00 Janette Pinzon [facility] POCT-GLUCOSE METER 2019-09-29 06:12:00 [facility] Medical Ce nter POCT-GLUCOSE METER 2019-09-28 20:51:00 [facility] Ce nter CBC W/PLT COUNT & AUTO 2019-09-28 11:43:00 Madeleine Rojas [facility] - DIFFERENTIAL [facility] COMPREHENSIVE METABOLIC 2019-09-28 11:43:00 Madeleine Rojas [facility] - PANEL [facility] MAGNESIUM 2019-09-28 11:43:00 Madeleine Rojas [facility] POCT-GLUCOSE METER 2019-09-28 06:17[facility] - [facility] POCT-GLUCOSE METER 2019-09-27 06:28:00 [facility], [facility] St Marci kes - [facility] POCT-GLUCOSE METER 2019-09-26 21:23:00 [facility], [facility] St Marci kes - [facility] POCT-GLUCOSE METER 2019-09-26 16:32:00 [facility], [facility] St Marci kes - [facility] POCT-GLUCOSE METER 2019-09-26 11:37:00 [facility], [facility] St Marci kes - [facility] POCT-GLUCOSE METER 2019-09-26 07:03:00 [facility], [facility] St Marci kes - [facility] POCT-GLUCOSE METER 2019-09-25 23:09:00 [facility], [facility] St Marci kes - [facility] POCT-GLUCOSE METER 2019-09-25 15:59:00 [facility], [facility] St Marci kes - [facility] POCT-GLUCOSE METER 2019-09-25 10:48:00 [facility], [facility] St Marci kes - [facility] POCT-GLUCOSE METER 2019-09-25 06:11:00 [facility], [facility] St Marci kes - [facility] POCT-GLUCOSE METER 2019-09-24 20:28:00 [facility], [facility] St Marci kes - [facility] POCT-GLUCOSE METER 2019-09-24 17:16:00 [facility], [facility] St Marci kes - [facility] POCT-GLUCOSE METER 2019-09-24 12:05:00 [facility], [facility] St Marci kes - [facility] XR CHEST 1 VIEW 2019-09-24 09:11:00 Janette Pinzon [facility] XR ABDOMEN / KUB 1 VIEW 2019-09-24 09:11:00 Janette Pinzon [facility] POCT-GLUCOSE METER 2019-09-24 06:09:00 [facility], [facility] - [facility] POCT-GLUCOSE METER 2019-09-23 20:12:00 [facility], [facility] - [facility] POCT-GLUCOSE METER 2019-09-23 16:07:00 [facility], [facility] - [facility] POCT-GLUCOSE METER 2019-09-23 11:29:00 [facility], [facility] - [facility] POCT-GLUCOSE METER 2019-09-23 05:53:00 [facility], [facility] - [facility] POCT-GLUCOSE METER 2019-09-22 20:03:00 [facility], [facility] - [facility] POCT-GLUCOSE METER 2019-09-22 16:24:00 [facility], [facility] - [facility] POCT-GLUCOSE METER 2019-09-22 12:07:00 [facility], [facility] - [facility] POCT-GLUCOSE METER 2019-09-22 06:41:00 [facility], [facility] - [facility] VITAMIN B12 AND FOLATE 2019-09-22 04:39:00 Janette Pinzon I [facility] TSH/FREE T4 IF INDICATED 2019-09-22 04:39:00 Janette Pinzon [facility] POCT-GLUCOSE METER 2019-09-21 20:48:00 [facility], [facility] - [facility] Medical Ce nter POCT-GLUCOSE METER 2019-09-21 16:44:00 [facility], [facility] - [facility] Medical Ce nter RHYTHM STRIP - SCAN 2019-09-21 14:20:46 Provider, Louise [facility] POCT-GLUCOSE METER 2019-09-21 11:59:00 [facility], [facility] - [facility] Medical Ce nter POCT-GLUCOSE METER 2019-09-21 05:54:00 [facility], [facility] - [facility]ter PHOSPHORUS 2019-09-21 04:09:00 Heather Meredith [facility] COMPREHENSIVE METABOLIC 2019-09-21 04:09:00 [facility], [facility] - [facility] CBC W/PLT COUNT & AUTO 2019-09-21 04:09:00 [facility], [facility] S t [facility] - DIFFERENTIAL [facility] Medical Ce nter POCT-GLUCOSE METER 2019-09-20 20:36:00 [facility], [facility] - ie[facility] hospit[facility] Medical Ce nter POCT-GLUCOSE METER 2019-09-20 16:28:00 [facility], [facility] - [facility] Medical Ce nter POCT-GLUCOSE METER 2019-09-20 11:33:00 [facility], [facility] - [facility] Medical Ce nter POCT-GLUCOSE METER 2019-09-20 06:02:00 [facility], [facility] - [facility]ine Medical Ce nter PHOSPHORUS 2019-09-20 04:43:00 Heather Meredith [facility] POCT-GLUCOSE METER 2019-09-19 20:27:00 [facility], [facility] - [facility] POCT-GLUCOSE METER 2019-09-19 16:48:00 [facility], [facility] - [facility] POCT-GLUCOSE METER 2019-09-19 12:01:00 [facility], [facility] POCT-GLUCOSE METER 2019-09-19 06:22:00 [facility], [facility] - [facility] PHOSPHORUS 2019-09-19 04:32:00 Heather Meredith [facility] COMPREHENSIVE METABOLIC 2019-09-19 04:32:00 [facility], [facility] - PANEL [facility] Ce nter MAGNESIUM 2019-09-19 04:32:00 [facility], [facility] CBC W/PLT COUNT & AUTO 2019-09-19 04:32:00 [facility], [facility] S [facility] - DIFFERENTIAL [facility] Ce nter TRANSFUSE LEUKO-REDUCED 2019-09-18 21:24:35 Barney Linares [facility] RED BLOOD CELLS [facility] POCT-GLUCOSE METER 2019-09-18 20:40:00 [facility], [facility] Medical Ce nter POCT-GLUCOSE METER 2019-09-18 18:00:00 [facility], [facility] Medical Ce nter POCT-GLUCOSE METER 2019-09-18 14:17:00 Heather Meredith [facility] FL ESOPHAGUS PHARNYX 2019-09-18 14:00:00 Heather Meredith [facility] S [facility] - AND/OR CERVICAL Medical Center XR ESOPH SWALLOW FUNCTION 2019-09-18 12:51:00 Heather Meredith [facility] - W/CINE VIDEO [facility] POCT-GLUCOSE METER 2019-09-18 07:54:00 Heather Meredith Geoffrey [facility] MAGNESIUM 2019-09-18 06:07:00 Sylvia Trejo [facility] PHOSPHORUS 2019-09-18 06:07:00 Sylvia Trejo [facility] BASIC METABOLIC PANEL (7) 2019-09-18 06:07:00 Masoud [facility] CBC W/PLT COUNT & AUTO 2019-09-18 06:07:00 Masoud [facility] XR CHEST 1 VIEW 2019-09-18 04:39:00 Sylvia Trejo [facility] PORTABLE/BEDSIDE [facility] POCT-GLUCOSE METER 2019-09-17 21:39:00 [facility] TRANSFUSION SERVICE 2019-09-17 17:50:47 Louise Jorgensen [facility] REPORT - SCAN Scanning [facility] POCT-GLUCOSE METER 2019-09-17 17:22:00 [facility] URINALYSIS W/ REFLEX 2019-09-17 17:04:00 [facility] S [facility] URINE CULTURE [facility] POCT-GLUCOSE METER 2019-09-17 12:36:00 Masoud, [facility] POCT-GLUCOSE METER 2019-09-17 08:18:00 [facility] XR CHEST 1 VIEW 2019-09-17 06:45:00 Sylvia Trejo [facility] PORTABLE/BEDSIDE Medical Tolar MAGNESIUM 2019-09-17 05:38:00 PasqualeSylvia orantes [facility] PHOSPHORUS 2019-09-17 05:38:00 [facility]aleSylvia [facility] BASIC METABOLIC PANEL (7) 2019-09-17 05:38:00 Masoud, [facility] CBC W/PLT COUNT & AUTO 2019-09-17 05:38:00 [facility] PREPARE LEUKO-REDUCED RBC 2019-09-16 23:54:00 Sylvia Trejo olman [facility] POCT-GLUCOSE METER 2019-09-16 20:55:00 Heather Meredith [facility] TRANSFUSION SERVICE 2019-09-16 18:12:40 Provider, Louise [facility] REPORT - SCAN Scanning [facility] INSERT NON-TUNNEL CV CATH 2019-09-16 16:48:31 Sylvia Trejo olman [facility] POCT-GLUCOSE METER 2019-09-16 12:27:00 Heather Meredith [facility] XR CHEST 1 VIEW 2019-09-16 09:01:00 Maya Sylvia Guillen [facility]/BEDSIDE Medical Tolar ECG 12-LEAD 2019-09-16 04:31:27 [facility] BASIC [facility]OLIC PANEL (7) 2019-09-16 03:37:00 Sekou Wagner [facility] MAGNESIUM 2019-09-16 03:37:00 Sekou Wagner [facility] PHOSPHORUS 2019-09-16 03:37:00 Sekou Wagner [facility] CBC (HEMOGRAM ONLY) 2019-09-16 03:37:00 Sekou Wagner CH I [facility] PT/APTT 2019-09-16 03:37:00 Abi Colón [facility] CALCIUM, IONIZED 2019-09-16 03:36:00 Abi Colón [facility] PREPARE RBC 2019-09-15 23:54:00 Mihir [place] [facility] POCT-GLUCOSE METER 2019-09-15 22:31:00 Heather Meredith [facility] TRANSFUSION SERVICE 2019-09-15 18:52:58 Provider, Louise [facility] REPORT - SCAN Scanning [facility] POCT-GLUCOSE METER 2019-09-15 18:15:00 Heather Meredith Geoffrey [facility] TRANSFUSE LEUKO-REDUCED 2019-09-15 18:05:28 Sylvia Trejo [facility] RED BLOOD CELLS [facility] CBC (HEMOGRAM ONLY) 2019-09-15 12:10:00 [facility] POCT-GLUCOSE METER 2019-09-15 12:09:00 Heather Meredith [facility] POCT-GLUCOSE METER 2019-09-15 08:14:00 Masoud [facility] POCT-GLUCOSE METER 2019-09-15 05:59:00 Masoud [facility] POCT-GLUCOSE METER 2019-09-15 05:11:00 Masoud [facility] ECG 12-LEAD 2019-09-15 04:16:47 Sekou Wagner Zhao [facility] BASIC METABOLIC PANEL (7) 2019-09-15 03:36:00 Sekou Wagner [facility] MAGNESIUM 2019-09-15 03:36:00 Sekou Wagner [facility] PHOSPHORUS 2019-09-15 03:36:00 Sekou Wagner [facility] CBC (HEMOGRAM ONLY) 2019-09-15 03:36:00 Sekou Wagner CH I [facility] BLOOD GAS, ARTERIAL 2019-09-15 03:36:00 Jesus Manuel [facility] CALCIUM, IONIZED 2019-09-15 03:36:00 Abi Colón [facility] LACTIC ACID, ARTERIAL 2019-09-15 03:36:00 Abi Colón [facility] OXYGEN SATURATION, 2019-09-15 03:36:00 Abi Colón [facility] PT/APTT 2019-09-15 03:35:00 Abi Colón [facility] POCT-GLUCOSE METER 2019-09-15 03:35:00 Masoud, [facility] POCT-GLUCOSE METER 2019-09-15 01:42:00 [facility] 2019-09-15 01:35:00 Sekou Wagner [facility]/BEDSIDE [facility] POCT-GLUCOSE METER 2019-09-15 00:10:00 Masoud, [facility] POCT-GLUCOSE METER 2019-09-14 23:07:00 Masoud [facility] POCT-GLUCOSE METER 2019-09-14 22:05:00 [facility] POCT-GLUCOSE METER 2019-09-14 21:11:00 [facility] BLOOD GAS, ARTERIAL 2019-09-14 21:02:00 [facility] CBC (HEMOGRAM ONLY) 2019-09-14 21:02:00 Katarzyna [facility] PT/APTT 2019-09-14 21:02:00 Katarzyna [facility] BASIC METABOLIC PANEL (7) 2019-09-14 21:02:00 Abi Colón [facility] MAGNESIUM 2019-09-14 21:02:00 Abi Colón [facility] PHOSPHORUS 2019-09-14 21:02:00 Katarzyna [facility] CALCIUM, IONIZED 2019-09-14 21:02:00 Abi Colón [facility] OXYGEN SATURATION, 2019-09-14 21:02:00 Katarzyna [facility] LACTIC ACID, ARTERIAL 2019-09-14 21:02:00 [facility] BLOOD GAS, ARTERIAL 2019-09-14 18:51:00 Jesus [facility] HGB/HCT (H&H) - STAT LAB 2019-09-14 18:51:00 [facility] L[facility], ARTERIAL 2019-09-14 18:51:00 Jesus Manuel [facility] POCT-GLUCOSE METER 2019-09-14 18:50:00 Heather Meredith [facility] POCT-GLUCOSE METER 2019-09-14 18:11:00 Masoud Heather [facility] TRANSFUSION SERVICE 2019-09-14 17:50:17 Provider, Louise [facility] - REPORT - SCAN Scanning [facility] XR CHEST 1 VIEW 2019-09-14 17:42:00 Sylvia Trejo [facility] PORTABLE/BEDSIDE Medical Center BRONCHIAL CULTURE + GRAM 2019-09-14 17:37:00 Sylvia Trejoom a [facility] XR CHEST 1 VIEW 2019-09-14 15:31:00 Sekou Wagner [facility] PORTABLE/BEDSIDE [facility] Center CBC W/PLT COUNT & AUTO 2019-09-14 15:31:00 Sylvia Trejo [facility] MAGNESIUM 2019-09-14 15:31:00 Sylvia Trejoeoma [facility] PHOSPHORUS 2019-09-14 15:31:00 PasqualerolandaSylviaeoma [facility] CALCIUM, IONIZED 2019-09-14 15:31:00 PasqualerolandaSylviaeoma [facility] LACTIC ACID, ARTERIAL 2019-09-14 15:31:00 PasqualerolandaSylviaoma C HI [facility] PROTHROMBIN TIME/INR 2019-09-14 15:31:00 MayaSylviaoma CH I [facility] APTT 2019-09-14 15:31:00 PasqualerolandaSylviaeoma [facility] FIBRINOGEN 2019-09-14 15:31:00 PasqualerolandaSylviaeoma [facility] OXYGEN SATURATION, 2019-09-14 15:31:[address] [facility] GLUCOSE 2019-09-14 15:31:00 Sylvia Trejo [facility] POTASSIUM 2019-09-14 15:31:00 Sylvia Trejoeoma [facility] BASIC METABOLIC PANEL (7) 2019-09-14 15:31:00 Heather Meredith [facility] BLOOD GAS, ARTERIAL 2019-09-14 15:30:00 [facility] 2019-09-14 15:30:00 [facility] POTASSIUM-STAT LAB 2019-09-14 15:30:00 [facility] GLUCOSE-STAT LAB 2019-09-14 15:30:00 [facility] HGB/HCT (H&H) - STAT LAB 2019-09-14 15:30:00 [facility] ECG 12-LEAD 2019-09-14 15:22:15 Sekou Wagner [facility] RRL CRITICAL LABS 2019-09-14 13:57:19 Barney Linares [facility] - (ABG,NA,K,H&H,GLUCOSE) Medical C enter SODIUM NA-STAT LAB 2019-09-14 13:57:19 Barney Linares [facility] POTASSIUM-STAT LAB 2019-09-14 13:57:19 Barney Linares [facility] GLUCOSE-STAT LAB 2019-09-14 13:57:19 Barney Linares [facility] (H&H) - STAT LAB 2019-09-14 13:57:19 Barney Linaresec to [facility] POCT-ACT 2019-09-14 13:41:00 Masoud Heather [facility] RRL CRITICAL LABS 2019-09-14 13:36:11 Barney Linares [facility] - (ABG,NA,K,H&H,GLUCOSE) Medical C enter SODIUM NA-STAT LAB 2019-09-14 13:36:11 Barney Linares [facility] POTASSIUM-STAT LAB 2019-09-14 13:36:11 BrettBarney sheehan [facility] GLUCOSE-STAT LAB 2019-09-14 13:36:11 VijayBarney [facility]&H) - STAT LAB 2019-09-14 13:36:11 Vijay Barney Perfec to [facility] TRANSFUSE LEUKO-REDUCED 2019-09-14 13:27:14 Vijay Barney sheehan [facility] RED BLOOD CELLS [facility] RRL CRITICAL LABS 2019-09-14 13:00:16 Mihir [place] [facility] - (ABG,NA,K,H&H,GLUCOSE) [facility] enter SODIUM NA-STAT LAB 2019-09-14 13:00:16 Mihir [place] [facility] POTASSIUM-STAT LAB 2019-09-14 13:00:16 Mihir [place] [facility] GLUCOSE-STAT LAB 2019-09-14 13:00:16 Mihir [place] [facility] HGB/HCT (H&H) - STAT LAB 2019-09-14 13:00:16 Mihir [place] [facility] POCT-ACT 2019-09-14 12:48:00 Heather Meredith [facility] RRL CRITICAL LABS 2019-09-14 12:45:18 Mihir [place] [facility] - (ABG,NA,K,H&H,GLUCOSE) [facility] enter SODIUM NA-STAT LAB 2019-09-14 12:45:18 Mihir [place] [facility] POTASSIUM-STAT LAB 2019-09-14 12:45:18 Mihir [place] [facility] GLUCOSE-STAT LAB 2019-09-14 12:45:18 Nna Mihir [facility] HGB/HCT (H&H) - STAT LAB 2019-09-14 12:45:18 Mihir [place] [facility] POCT-ACT 2019-09-14 12:25:00 Heather Meredith [facility] POCT-ACT 2019-09-14 12:13:00 Heather Meredith [facility] RRL CRITICAL LABS 2019-09-14 11:06:39 Vijay Barney Hobbs [facility] (ABG,NA,K,H&H,GLUCOSE) Medical C enter SODIUM NA-STAT LAB 2019-09-14 11:06:39 Vijay Barney Duboisaguila [facility] POTASSIUM-STAT LAB 2019-09-14 11:06:39 Creaguila Barney Duboisaguila [facility] GLUCOSE-STAT LAB 2019-09-14 11:06:39 Vijay Barney Anjel [facility]HCT (H&H) - STAT LAB 2019-09-14 11:06:39 Barney Linares Perfec to [facility] BYPASS,AORTO CORONARY 2019-09-14 10:21:00 Mihir [place] [facility] - ILYA/SVG [facility] ENDOSCOPIC HARVEST,VEIN 2019-09-14 10:21:00 Mihir [place] [facility] CBC W/PLT COUNT & AUTO 2019-09-14 04:31:00 Fran Cooper [facility] - DIFFERENTIAL [facility] COMPREHENSIVE METABOLIC 2019-09-14 04:31:00 Fran Cooper [facility] - PANEL [facility] MAGNESIUM 2019-09-14 04:31:[address] [facility] BASIC METABOLIC PANEL (7) 2019-09-14 04:31:00 Satinder Correa on [facility] APTT 2019-09-14 04:31:00 Mihir [place] [facility] PHOSPHORUS 2019-09-14 04:31:00 Sekou Wagner [facility] SARS-COV2/RT-PCR ([facility] & 2019-09-13 16:18:00 Satinder Correa n [facility] - REF LABS) [facility] 2D ECHO W/ DOPPLER 2019-09-13 13:55:18 Chana, Jaden [facility] (CW/PW/COLOR) [facility] ABORH, MANUAL 2019-09-13 05:43:00 Claire Ching Mabel [facility] PLATELET AGGREGATION: 2019-09-13 04:38:[address] [facility] FUNCTION SCREEN [facility] CBC W/PLT COUNT & AUTO 2019-09-13 04:38:00 Satinder Correa [facility] BASIC METABOLIC PANEL (7) 2019-09-13 04:37:00 Satinder Correa [facility] MAGNESIUM 2019-09-13 04:37:00 Satinder Correa [facility] HEMOGLOBIN A1C 2019-09-13 04:37:00 Nan, [facility] LIPID PANEL 2019-09-13 04:37:00 [facility] TYPE AND SCREEN, 2019-09-13 04:37:00 Mihir [place] [facility] es - AUTOMATED [facility] PROTHROMBIN TIME/INR 2019-09-13 04:36:00 Nan Beckley [facility] APTT 2019-09-13 04:36:00 Satinder Correa [facility] ECG 12-LEAD 2019-09-12 21:56:[address] [facility] XR CHEST 1 VIEW 2019-09-12 21:06:00 Mihir [place] [facility] - PORTABLE/BEDSIDE [facility] CAROTID DOPPLER BILATERAL 2019-09-12 19:30:00 Satinder Correa [facility] APTT 2019-09-12 18:11:00 Satinder Correa [facility] PLATELET AGGREGATION: 2019-09-12 12:28:[address] [facility] FUNCTION SCREEN [facility] APTT 2019-09-12 10:53:00 [facility]OP[facility] 2019-09-12 10:53:00 Jaden Zayas [facility] APTT 2019-09-12 03:19:00 Chana, Jaden [facility] CBC (HEMOGRAM ONLY) 2019-09-12 03:19:00 Jaden Zayas [facility] TROPONIN I 2019-09-12 03:19:00 Jaden Zayas [facility] Plan of Care Planned Activity Planned Date Details Comments Source Future Scheduled 2020-03-[address] [facility] 00:00:00 measurement [facility] (procedure) [code = 61067055] Future Scheduled 2019-12-08 [facility]UENZA VACCINE [facility] - Test 00:00:00 (#1) [code = Medical Center INFLUENZA VACCINE (#1)] Future Scheduled 2006-11-[address] [facility] - Test 00:00:00 WELLNESS (YEAR 2 or Medical Center FIRST YEAR if no IPPE) [code = MEDICARE ANNUAL WELLNESS (YEAR 2 or FIRST YEAR if no IPPE)] Future Scheduled 1950 DIABETIC EYE EXAM [facility] - Test 00:00:00 [code = DIABETIC EYE Medical Center EXAM] Future Scheduled 1950 Diabetic foot [facility] - [facility]:00 examination Medical Center (regime/therapy) [code = 898835600] Future Scheduled 1950 Urine [facility] for [facility] - Test 00:00:00 protein (procedure) Medical Center [code = 179945425] Results Test Description Test Time Test Comments Results Result Comments Source SARS-CoV2/RT-PCR ([facility] & Ref Labs) 2019-10-13 21:12:00 Test Item Value Reference Range Interpretation Comme nts SARS-COV2/RT-PCR (test code = Positive Not Detected, Negative A A 59934-1) SARS-COV-2 PERFORMING LAB [facility] (test code = 70634-5) KAILA (test code = KAILA) Results are for the detection of SARS-CoV-2 RNA. The SARS-CoV-2 RNA is generally detectable in nasopharyngeal swab specimens during the acute phase of infection. Positive results are indicative of active infection with SARS-CoV-2 and the patient is presumed to be contagious. Laboratory test results should always be considered in the clinical correlation with patient history and other epidemiological and diagnostic information that is necessary to determine patient infection status. Patient management decisions should follow current CDC guidelines. Positive results do not rule out bacterial infection or co-infection with other viruses. The agent detected may not be the definite cause of disease. The limit of detection for this assay is 800 copies/mL. This SARS CoV-2 test is a real-time RT-PCR test intended for the qualitative detection of nucleic acid from SARS-CoV-2 in a nasopharyngeal swab specimen collected from individuals suspected of COVID-19 by their healthcare provider. This test has not been Food and Drug Administration (FDA) cleared or approved. This is a modified version of an approved Emergency Use Authorization (EUA) and is in the process of review by the FDA. Once authorized by the FDA, the issued EUA will be effective until the declaration that circumstances exist justifying the authorization of the emergency use of in vitro diagnostic tests for detection and/or diagnosis of COVID-19 is terminated under Section 564(b)(2) of the Act or the EUA is revoked under Section 564(g) of the Act. Fact Sheet for Healthcare Providers:https://www.[employer]/sites/default/files/pro duct/documents/Fact_Sheet_HC _Wntwfopiv_Fdzo_CKOU-YbG-8.p df Fact Sheet for Healthcare Patients:https://www.[employer]/sites/default/files/prod uct/documents/Fact_Sheet_Pat gzknr_Nrlt_TTZT-CzH-9.pdf Performing Laboratory:[facility] [place] [address].[place] [address] Lab Interpretation (test code Abnormal = 23703-1) [facility] & REF LABS)2019-10-13 21:12:00 Test Item Value Reference Range Interpretation Comments SARS-COV2/RT-PCR (test code = Positive Not Detected, Negative A A 5729643) SARS-COV-2 PERFORMING LAB [facility] (test code = 9421500) Results are for the detection of SARS-CoV-2 RNA. The SARS-CoV-2 RNA is generally detectable in nasopharyngeal swab specimens during the acute phase of infection. Positive results are indicative of active infection with SARS-CoV-2 and the patient is presumed to be contagious. Laboratory test results should always be considered in the clinical correlation with patient history and other epidemiological and diagnostic information that is necessary to determine patient infection status. Patient management decisions should follow current CDC guidelines. Positive results do not rule out bacterial infection or co- infection with other viruses. The agent detected may not be the definite cause of disease.The limit of detection for this assay is 800 copies/mL.This SARS CoV- 2 test is a real-time RT-PCR test intended for the qualitative detection of nucleic acid from SARS-CoV-2 in a nasopharyngeal swab specimen collected from individuals suspected of COVID-19 by their healthcare provider.This test has not been Food and Drug Administration (FDA) cleared or approved. This is a modified version of an approved Emergency Use Authorization (EUA) and is in the process of review by the FDA. Once authorized by the FDA, the issued EUA will be effective until the declaration that circumstances exist justifying the authorization of the emergency use of in vitro diagnostic tests for detection and/or diagnosis of COVID-19 is terminated under Section 564(b)(2) of the Act or the EUA is revoked under Section 564(g) of the Act.Fact Sheet for Healthcare Providers:https://www.[employer]/sites/default/files/product/d ocuments/Qrfn_Bmosz_CK_Lefjbpfto_Rely_ORMG-EmJ-1.pdfFact Sheet for Healthcare Patients:https://www.[employer]/sites/default/files/product/documents/Fact_Sheet_Patients_Lyra_SARS-CoV -2.pdfPerforming Laboratory:[facility] [place], [place] [address]chrissie.[place], [place] [address]QWUSGZPQP CULTURE + GRAM [id number] 17:14:00 Test Item Value Reference Range Interpretation Comments CULTURE (BEAKER) PSEUDOMONAS A 4+ Pseudomo pb (test code = 1095) AERUGINOSA aeruginos a (MUCOID-PHENOTYPE (Mucoid-ph enotype ) ) Amikacin (test code Susceptible 0-16 S = [...] Resistant <0 or >4 CULTURE (BEAKER) PSEUDOMONAS A 4+ Pseudomo pb (test code = 1095) AERUGINOSA aeruginos a Amikacin (test code Susceptible 0-16 [...] 1123) GRAM STAIN RESULT 2+ gram negative (BEAKER) (test code rods = 045747) POC-Glucose [id number] 06:16:00 Test Item Value Reference Range Interpretation Comments POC-Glucose Meter (test 119 mg/dL 70-110 H : TE STED AT [facility] code = 1538) [address] [facility] [address], [facility] [address]: Senior Software Engineer Analytics/Techni santana ID = [id number] for ABI RAMOS Lab Interpretation (test Abnormal code = 20924-2) [facility] [id number] 06:16:00 Test Item Value Reference Range Interpretation Comments POC-GLUCOSE METER 119 mg/dL 70-110 H : TESTED A T [facility] 7[facility] (BEAKER) (test code [address] A, = 1538) [facility] 7703 0: Senior Software Engineer Analytics/Techni santana ID = [id number] for ABI RAMOS Basic Metabolic [id number] 02:40:00 Test Item Value Reference Range Interpretation Comments Sodium (test code = 136 meq/L 729-856 4256-2) Potassium (test code = 4.3 meq/L 3.5-5.1 Speci men slightly 2823-3) hemolyzed Chloride (test code = 101 meq/L 98-107 2075-0) CO2 (test code = 28 meq/L -29 2028-9) BUN (test code = 20 mg/dL 7- 3094-0) Creatinine (test code = 1.68 mg/dL 0.57-1.25 H Spec imen slightly 2160-0) hemolyzed Glucose (test code = 138 mg/dL 70-105 H 2345-7) Calcium (test code = 8.8 mg/dL 8.4-10.2 69193-7) EGFR (test code = 29 mL/min/1.73 [place] [address]-7) NOT ACCURATE CREATININE CLEARANCE IN PREDICTING GLOMERULAR FILTRATION RATE . ESTIMATED GFR I S NOT APPLICABLE FOR DIALYSIS PATIEN TS. Lab Interpretation Abnormal (test code = 02065-6) [facility]OLIC [id number] 02:40:00 Test Item Value Reference Range Interpretation Comments SODIUM (BEAKER) 136 meq/L 136-145 (test code = 381) POTASSIUM (BEAKER) 4.3 meq/L 3.5-5.1 Specimen slightly (test code = 379) hemolyzed CHLORIDE (BEAKER) 101 meq/L 98-107 (test code = 382) CO2 (BEAKER) (test 28 meq/L -29 code = 355) BLOOD UREA NITROGEN 20 mg/dL 7-21 (BEAKER) (test code = 354) CREATININE (BEAKER) 1.68 mg/dL 0.57-1.25 H Specimen slightly (test code = 358) hemolyzed GLUCOSE RANDOM 138 mg/dL 70-105 H (BEAKER) (test code = 652) CALCIUM (BEAKER) 8.8 mg/dL 8.4-10.2 (test code = 697) EGFR (BEAKER) (test 29 mL/min/1.73 ESTIMA CARSON GFR IS code = 1092) sq m NOT ACCURATE CREATININE CLEARANCE IN PREDICTING GLOMERULAR FILTRATION RATE . ESTIMATED GFR I S NOT APPLICABLE FOR DIALYSIS PATIEN TS. BASIC METABOLIC [id number] 09:47:00 Test Item Value Reference Range Interpretation [...] 697) EGFR (BEAKER) (test 36 mL/min/1.73 ESTIMA CARSON GFR IS code = 1092) sq m NOT ACCURATE CREATININE CLEARANCE IN PREDICTING GLOMERULAR FILTRATION RATE . ESTIMATED GFR I S NOT APPLICABLE FOR DIALYSIS PATIEN TS. POCT-GLUCOSE [id number] 06:23:00 Test Item Value Reference Range Interpretation Comments POC-GLUCOSE METER 120 mg/dL 70-110 H : TESTED A T [facility] (BEAKER) (test code PRABHJOT Dickens BLDG A, = 1538) [place] [address] 0: Senior Software Engineer Analytics/Techni santana ID = [id number] for NICA JUAN HAY POCT-GLUCOSE [id number] 21:03:00 Test Item Value Reference Range Interpretation Comments POC-GLUCOSE METER 174 mg/dL 70-110 H : TESTED A T [facility] (BEAKER) (test code PRABHJOT Dickens BLMAURI A, = 1538) [place] 7[address] 0: Senior Software Engineer Analytics/Techni santana ID = [id number] for HAY JIMENEZ Comprehensive metabolic [id number] 12:10:00 Test Item Value Reference Range Interpretation Comments Protein, Total (test 5.8 See_Comment L [Autom ated code = 2885-2) message] The system which generated this result transmitted reference range : 6.0 - 8.3 gm/dL . The reference r ching was not used to interpret this result as normal/abnormal . Albumin (test code = 3.6 g/dL 3.5-5 38890-5) Alkaline Phosphatase 11 U/L 40-150 L (test [...] Calcium (test code = 9.4 mg/dL 8.4-10.2 85432-4) AST (test code = 18 U/L 5-34 1920-8) ALT (test code = 17 U/L 6-55 1742-6) EGFR (test code = 36 mL/min/1.[place] [address]-9) NOT ACCURATE CREATININE CLEARANCE IN PREDICTING GLOMERULAR FILTRATION RATE . ESTIMATED GFR I S NOT APPLICABLE FOR DIALYSIS PATIEN TS. Lab Interpretation Abnormal (test code = 82820-5) [facility] 12:10:00 Test Item Value Reference Range Interpretation Comments Magnesium (test code = 56880-8) 2.1 mg/dL 1.6-2.6 Lab Interpretation (test code = Normal 51660-6) [facility]2020-[facility] 12:10:00 Test Item Value Reference Range Interpretation Comments MAGNESIUM (BEAKER) (test code = 2.1 mg/dL 1.6-2.6 627) COMPREHENSIVE METABOLIC [id number] 12:10:00 Test Item Value Reference Range Interpretation [...] 347) EGFR (BEAKER) (test 36 mL/min/1.73 ESTIMA CARSON GFR IS code = 1092) sq m NOT ACCURATE CREATININE CLEARANCE IN PREDICTING GLOMERULAR FILTRATION RATE . ESTIMATED GFR I S NOT APPLICABLE FOR DIALYSIS PATIEN TS. CBC with platelet count + automated [id number] 12:08:00 Test Item Value Reference Range Interpretation Comments WBC (test code = 6690-2) 5.7 See_Comment [A utomated message] The system Nival generated this result transmitted ref erence range: 3.5 - 10 .5 K/L. The refe rence range was not u sed to interpret this result as normal/abnor mal. RBC (test code = 789-8) 2.84 See_Comment L [Au tomated message] The system Nival generated this result transmitted ref erence range: 3.93 - 5 .22 M/L. The refe rence range was not u sed to interpret this result as normal/abnor mal. MCHC (test code = 786-4) 31.9 See_Comment L [A utomated message] The system Nival generated this result transmitted ref erence range: 32.2 - 3 5.5 GM/DL. The refe rence range was not u sed to interpret this result as normal/abnor mal. Hematocrit (test code = 27.3 % 34.1-44.9 L 4544-3) MCV (test code = 787-2) 96.1 fL 79.4-94.8 H MCH (test code = 785-6) 30.6 pg 25.6-32.2 RDW (test code = 788-0) 15.1 % 11.7-14.4 H Platelets (test code = 344 See_Comment [Aut omated message] 777-3) The system Nival generated this result transmitted ref erence range: 150 - 45 0 K/CU MM. The referen ce range was not u sed to interpret this result as normal/abnor mal. MPV (test code = 9.8 fL 9-12.3 05228-5) nRBC (test code = 413) 0 See_Comment [Aut omated message] The system Nival generated this result transmitted ref erence range: 0 - 0 /1 00 WBC. The refere nce range was not u sed to interpret this result as normal/abnor mal. % Neutros (test code = 63 % 429) % Lymphs (test code = 19 % 430) % Monos (test code = 9 % 431) % Eos (test code = 432) 8 % % Baso (test code = 437) 1 % # Neutros (test code = 670) # Lymphs (test code = 414) # Monos (test code = 415) # Eos (test code = 416) # Baso (test code = 417) Immature 0 % 0-1 Granulocytes-Relative (test code = 2801) Lab Interpretation (test Abnormal code = 18802-8) [facility] W/PLT COUNT & AUTO [id number] 12:08:00 Test Item Value Reference Range Interpretation [...] PERCENT (BEAKER) (test code = 2801) POCT-GLUCOSE [id number] 06:28:00 Test Item Value Reference Range Interpretation Comments POC-GLUCOSE METER 128 mg/dL 70-110 H : TESTED A T [facility] (BEAKER) (test code CAMBRIDG E BLDG A, = 1538) [place] [address]: Senior Software Engineer Analytics/Techni santana ID = [id number] for WICHOTIARA CAGLE POCT-GLUCOSE [id number] 06:39:00 Test Item Value Reference Range Interpretation Comments POC-GLUCOSE METER 116 mg/dL 70-110 H : TESTED A T [facility] (BEAKER) (test code CAMBRIDG E BLDG A, = 1538) [place] [address] 0: Senior Software Engineer Analytics/Techni santana ID = [id number] for WICHOTRACI CAGLEW POCT-GLUCOSE [id number] 21:34:00 Test Item Value Reference Range Interpretation Comments POC-GLUCOSE METER 145 mg/dL 70-110 H : TESTED A T [facility] (BEAKER) (test code CAMBRIDG E BLDG A, = 1538) [place] [address] 0: Senior Software Engineer Analytics/Techni santana ID = [id number] for WICHOTIARA CAGLE POCT-GLUCOSE [id number] 16:44:00 Test Item Value Reference Range Interpretation Comments POC-GLUCOSE METER 150 mg/dL 70-110 H : TESTED A T [facility] (BEAKER) (test code CAMBRIDG E BLDG A, = 1538) [place] [address] 0: Senior Software Engineer Analytics/Techni santana ID = [id number] for JONNIE QUINTERO POCT-GLUCOSE [id number] 11:48:00 Test Item Value Reference Range Interpretation Comments POC-GLUCOSE METER 133 mg/dL 70-110 H : TESTED A T [facility] (BEAKER) (test code CAMBRIDG E BLDG A, = 1538) [place] [address] 0: Senior Software Engineer Analytics/Techni santana ID = [id number] for JONNIE QUINTERO POCT-GLUCOSE [id number] 07:14:00 Test Item Value Reference Range Interpretation Comments POC-GLUCOSE METER 118 mg/dL 70-110 H : TESTED A T [facility] (BEAKER) (test code CAMBRIDG E BLDG A, = 1538) [place] [address] 0: Senior Software Engineer Analytics/Techni santana ID = [id number] for TIARA PIERRE POCT-GLUCOSE [id number] 23:21:00 Test Item Value Reference Range Interpretation Comments POC-GLUCOSE METER 214 mg/dL 70-110 H : TESTED A T [facility] (BEAKER) (test code CAMBRIDG E BLDG A, = 1538) [place] [address] 0: Senior Software Engineer Analytics/Techni santana ID = [id number] for TIARA PIERRE POCT-GLUCOSE [id number] 16:15:00 Test Item Value Reference Range Interpretation Comments POC-GLUCOSE METER 169 mg/dL 70-110 H : TESTED A T [facility] (BEAKER) (test code CAMBRIDG E BLDG A, = 1538) [place] [address] 0: Senior Software Engineer Analytics/Techni santana ID = [id number] for OMIW ANGELA, SYRIETA POCT-GLUCOSE [id number] 11:21:00 Test Item Value Reference Range Interpretation Comments POC-GLUCOSE METER 164 mg/dL 70-110 H : TESTED A T [facility] (BEAKER) (test code CAMBRIDG E BLDG A, = 1538) [place] [address] 0: Senior Software Engineer Analytics/Techni santana ID = [id number] for OMIW ANGELA, SYRIETA POCT-GLUCOSE [id number] 06:46:00 Test Item Value Reference Range Interpretation Comments POC-GLUCOSE METER 119 mg/dL 70-110 H : TESTED A T [facility] (BEAKER) (test code CAMBRIDG E BLDG A, = 1538) [place] [address] 0: Senior Software Engineer Analytics/Techni santana ID = [id number] for NICA , HAY POCT-GLUCOSE [id number] 20:54:00 Test Item Value Reference Range Interpretation Comments POC-GLUCOSE METER 174 mg/dL 70-110 H : TESTED A T [facility] (BEAKER) (test code CAMBRIDG E BLDG A, = 1538) [place] [address] 0: Senior Software Engineer Analytics/Techni santana ID = [id number] for NICA , HAY POCT-GLUCOSE [id number] 17:47:00 Test Item Value Reference Range Interpretation Comments POC-GLUCOSE METER 111 mg/dL 70-110 H : TESTED A T [facility] (BEAKER) (test code PRABHJOT Dickens BLMAURI A, = 1538) [facility] 7703 0: Senior Software Engineer Analytics/Techni santana ID = [id number] for ZAIN FLOWER RAD, ABDOMEN/KUB, 1 VIEW [id number] 14:15:00Reason for exam:->constipation, abdominal painShould this be [...] colon without bowel dilatation. Signed: Leigh Almodovar Verified Date/Time: 09/24/2019 14:15:34 Reading Location: [facility] Reading Room [address] [place] [address] XR abdomen / KUB 1 [id number] 14:15:00Interface, External Ris In - 09/24/2019 2:17 [...] MDRwillianort Verified Date/Time: 09/24/2019 14:15:34 Reading Location: [facility] Reading Room [address] [place], [place] [id number] [facility], NON [id number] 13:22:00Reason for exam:->h/o CABG, f/u venous congestion [...] MDReport Verified Date/Time: 09/24/2019 13:22:42 Reading Location: [facility] Reading Room [address] [place] [address]Electronically signedby: LEIGH CARBAJAL M.D. on 09/24/2019 01:22 PMXR chest 1 view portable / bedside 2019-09-24 13:22:00Interface, External Ris In - 09/24/2019 1:24 [...] of the cardiac silhouette, increased since preoperative exa m. Atherosclerotic calcifications of the aortic arch. Bones and soft tissues: Interval CABG with intact median sternotomy wires. IMPRESSION: Status post CABG with mild increase in size of the cardiacsilhouette which may relate to worsening heart failure or superimposed pericardial effusion. Correlate with echocardiogram. Mild bilateral interstitial edema and small bilateral pleural effusions. Signed: Leigh Almodovar MDReport Verified Date/Time: 09/24/2019 13:22:42 Reading Location: [facility] Reading Room [address] [place] [address] [facility] [id number] 12:17:00 Test Item Value Reference Range Interpretation Comments POC-GLUCOSE METER 193 mg/dL 70-110 H : TESTED A T [facility] (BEAKER) (test code CAMBRIDG E BLDG A, = 1538) [place] [address] 0: Senior Software Engineer Analytics/Techni santana ID = [id number] for MUSA FLOWERA POCT-GLUCOSE [id number] 06:22:00 Test Item Value Reference Range Interpretation Comments POC-GLUCOSE METER 130 mg/dL 70-110 H : TESTED A T [facility] (BEAKER) (test code CAMBRIDG E BLDG A, = 1538) [place] [address] 0: Senior Software Engineer Analytics/Techni santana ID = [id number] for RICHARD , ABI POCT-GLUCOSE [id number] 20:43:00 Test Item Value Reference Range Interpretation Comments POC-GLUCOSE METER 196 mg/dL 70-110 H : TESTED A T [facility] (BEAKER) (test code CAMBRIDG E BLDG A, = 1538) [place] [address] 0: Senior Software Engineer Analytics/Techni santana ID = [id number] for RICHARD , ABI POCT-GLUCOSE [id number] 17:05:00 Test Item Value Reference Range Interpretation Comments POC-GLUCOSE METER 163 mg/dL 70-110 H : TESTED A T [facility] (BEAKER) (test code CAMBRIDG E BLDG A, = 1538) [place] [address] 0: Senior Software Engineer Analytics/Techni santana ID = [id number] for ANNA MANRIQUE, JACKY POCT-GLUCOSE [id number] 12:02:00 Test Item Value Reference Range Interpretation Comments POC-GLUCOSE METER 204 mg/dL 70-110 H : TESTED A T [facility] (BEAKER) (test code CAMBRIDG E BLDG A, = 1538) [place] [address] 0: Senior Software Engineer Analytics/Techni santana ID = [id number] for ANNA REEVESU, JACKY POCT-GLUCOSE [id number] 06:22:00 Test Item Value Reference Range Interpretation Comments POC-GLUCOSE METER 127 mg/dL 70-110 H : TESTED A T [facility] (BEAKER) (test code CAMBRIDG E BLDG A, = 1538) [place] [address] 0: Senior Software Engineer Analytics/Techni santana ID = [id number] for ABI RAMOS POCT-GLUCOSE [id number] 20:36:00 Test Item Value Reference Range Interpretation Comments POC-GLUCOSE METER 236 mg/dL 70-110 H : TESTED A T [facility] (BEAKER) (test code CAMBRIDG E BLDG A, = 1538) [place] [address] 0: Senior Software Engineer Analytics/Techni santana ID = [id number] for ABI RAMOS POCT-GLUCOSE [id number] 16:53:00 Test Item Value Reference Range Interpretation Comments POC-GLUCOSE METER 205 mg/dL 70-110 H : TESTED A T [facility] (BEAKER) (test code CAMBRIDG E BLDG A, = 1538) [place] [address] 0: Senior Software Engineer Analytics/Techni santana ID = [id number] for JONNIE QUINTERO POCT-GLUCOSE [id number] 12:20:00 Test Item Value Reference Range Interpretation Comments POC-GLUCOSE METER 201 mg/dL 70-110 H : TESTED A T [facility] (BEAKER) (test code CAMBRIDG E BLDG A, = 1538) [place] [address] 0: Senior Software Engineer Analytics/Techni santana ID = [id number] for JONNIE QUINTERO POCT-GLUCOSE [id number] 07:11:00 Test Item Value Reference Range Interpretation Comments POC-GLUCOSE METER 134 mg/dL 70-110 H : TESTED A T [facility] (BEAKER) (test code CAMBRIDG Chrissie BLDG A, = 1538) [place] [address] 0: Senior Software Engineer Analytics/Techni santana ID = [id number] for TIARA PIERRE Vitamin B12 and [id number] 06:31:00 Test Item Value Reference Range Interpretation Comments Vitamin B12 (test code 856 pg/mL 211-911 = 2132-9) Folate (test code = 12.43 ng/mL See_Comment [Automa carson 2284-8) message] The sy stem which generated this result transmitted reference range : >=5.40. The reference range was not used to interpret this result as normal/abnormal . Lab Interpretation Normal (test code = 41097-7) [facility] Hospital[facility]ITAMIN B12 AND [id number] 06:31:00 Test Item Value Reference Range Interpretation Comments VITAMIN B12 (BEAKER) (test code = 856 pg/mL 211-911 774) FOLATE (BEAKER) (test code = 362) 12.43 ng/mL >=5.40 TSH/Free T4 If [id number] 05:57:00 Test Item Value Reference Range Interpretation Comments TSH (test code = 21463-6) 1.234 See_Comment [ Automated message] The system Nival generated this result transmitted ref erence range: 0.350 - 5.500 uIU/mL. The ref erence range was not u sed to interpret this result as normal/abnor mal. Lab Interpretation (test Normal code = 57405-9) [facility] HospitalTSH/FREE T4 IF [id number] 05:57:00 Test Item Value Reference Range Interpretation Comments THYROID STIMULATING HORMONE 1.234 uIU/mL 0.350-5.500 (BEAKER) (test code = 772) POCT-GLUCOSE [id number] 20:59:00 Test Item Value Reference Range Interpretation Comments POC-GLUCOSE METER 225 mg/dL 70-110 H : TESTED A T [facility] (BEAKER) (test code CAMBRIDG E BLDG A, = 1538) [place] [address] 0: Senior Software Engineer Analytics/Techni santana ID = [id number] for TIARA PIERRE POCT-GLUCOSE [id number] 16:55:00 Test Item Value Reference Range Interpretation Comments POC-GLUCOSE METER 198 mg/dL 70-110 H : TESTED A T [facility] (BEAKER) (test code CAMBRIDG E BLDG A, = 1538) [place] [address] 0: Senior Software Engineer Analytics/Techni santana ID = [id number] for AMIE BEGUM JUCEL ADAM POCT-GLUCOSE [id number] 12:12:00 Test Item Value Reference Range Interpretation Comments POC-GLUCOSE METER 254 mg/dL 70-110 H : TESTED A T [facility] (BEAKER) (test code CAMBRIDG E BLDG A, = 1538) [place] [address] 0: Senior Software Engineer Analytics/Techni santana ID = [id number] for AMIE BEGUM JUCEL ADAM POCT-GLUCOSE [id number] 06:08:00 Test Item Value Reference Range Interpretation Comments POC-GLUCOSE METER 132 mg/dL 70-110 H : TESTED A T [facility] (BEAKER) (test code CAMBRIDG E BLDG A, = 1538) [place] [address] 0: Senior Software Engineer Analytics/Techni santana ID = [id number] for Indio Weaver [id number] 05:52:00 Test Item Value Reference Range Interpretation Comments Phosphorus (test code = 2777-1) 3.3 mg/dL 2.3-4.7 Lab Interpretation (test code = Normal 77471-0) [facility] HospitalCOMPREHENSIVE METABOLIC [id number] 05:52:00 Test Item Value Reference Range Interpretation [...] 347) EGFR (BEAKER) (test 52 mL/min/1.73 ESTIMA CARSON GFR IS code = 1092) sq m NOT ACCURATE CREATININE CLEARANCE IN PREDICTING GLOMERULAR FILTRATION RATE . ESTIMATED GFR I S NOT APPLICABLE FOR DIALYSIS PATIEN TS. [id number] 05:52:00 Test Item Value Reference Range Interpretation Comments PHOSPHORUS (BEAKER) (test code = 3.3 mg/dL 2.3-4.7 604) CBC W/PLT COUNT & AUTO [id number] 05:36:00 Test Item Value Reference Range Interpretation [...] PERCENT (BEAKER) (test code = 2801) POCT-GLUCOSE [id number] 20:47:00 Test Item Value Reference Range Interpretation Comments POC-GLUCOSE METER 232 mg/dL 70-110 H : TESTED A T [facility] (BEAKER) (test code CAMBRIDG E BLDG A, = 1538) [place] [address] 0: Senior Software Engineer Analytics/Techni santana ID = [id number] for NICA JUANHAY POCT-GLUCOSE [id number] 16:39:00 Test Item Value Reference Range Interpretation Comments POC-GLUCOSE METER 211 mg/dL 70-110 H : TESTED A T [facility] (BEAKER) (test code CAMBRIDG E BLDG A, = 1538) [place] [address] 0: Senior Software Engineer Analytics/Techni santana ID = [id number] for AARON PARVEEN GUERRA POCT-GLUCOSE [id number] 11:51:00 Test Item Value Reference Range Interpretation Comments POC-GLUCOSE METER 195 mg/dL 70-110 H : TESTED A T [facility] (BEAKER) (test code CAMBRIDG E BLDG A, = 1538) [place] [address] 0: Senior Software Engineer Analytics/Techni santana ID = [id number] for PARVEEN SINGH POCT-GLUCOSE [id number] 06:12:00 Test Item Value Reference Range Interpretation Comments POC-GLUCOSE METER 128 mg/dL 70-110 H : TESTED A T [facility] (BEAKER) (test code CAMBRIDG E BLDG A, = 1538) [place] [address] 0: Senior Software Engineer Analytics/Techni santana ID = [id number] for HAY JIMENEZ [id number] 05:48:00 Test Item Value Reference Range Interpretation Comments PHOSPHORUS (BEAKER) (test code = 2.6 mg/dL 2.3-4.7 604) POCT-GLUCOSE [id number] 20:39:00 Test Item Value Reference Range Interpretation Comments POC-GLUCOSE METER 189 mg/dL 70-110 H : TESTED A T [facility] (BEAKER) (test code CAMBRIDG E BLDG A, = 1538) [place] [address] 0: Senior Software Engineer Analytics/Techni santana ID = [id number] for HAY JIMENEZ POCT-GLUCOSE [id number] 17:03:00 Test Item Value Reference Range Interpretation Comments POC-GLUCOSE METER 175 mg/dL 70-110 H : TESTED A T [facility] (BEAKER) (test code CAMBRIDG E BLDG A, = 1538) [place] [address] 0: Senior Software Engineer Analytics/Techni santana ID = [id number] for ANNA MANRIQUE, JACKY POCT-GLUCOSE [id number] 12:14:00 Test Item Value Reference Range Interpretation Comments POC-GLUCOSE METER 142 mg/dL 70-110 H : TESTED A T [facility] (BEAKER) (test code CAMBRIDG E BLDG A, = 1538) [place] [address] 0: Senior Software Engineer Analytics/Techni santana ID = [id number] for NWAJ IAKU, JACKY COMPREHENSIVE METABOLIC [id number] 07:05:00 Test Item Value Reference Range Interpretation [...] 347) EGFR (BEAKER) (test 50 mL/min/1.73 ESTIMA CARSON GFR IS code = 1092) sq m NOT ACCURATE CREATININE CLEARANCE IN PREDICTING GLOMERULAR FILTRATION RATE . ESTIMATED GFR I S NOT APPLICABLE FOR DIALYSIS PATIEN TS. [id number] 07:05:00 Test Item Value Reference Range Interpretation Comments MAGNESIUM (BEAKER) (test code = 1.9 mg/dL 1.6-2.6 627) POCT-GLUCOSE [id number] 06:33:00 Test Item Value Reference Range Interpretation Comments POC-GLUCOSE METER 121 mg/dL 70-110 H : TESTED A T [facility] (BEAKER) (test code CAMBRIDG E BLDG A, = 1538) [place] 7[address] 0: Senior Software Engineer Analytics/Techni santana ID = [id number] for ABI RAMOS CBC W/PLT COUNT & AUTO [id number] 06:24:00 Test Item Value Reference Range Interpretation [...] 0-1 PERCENT (BEAKER) (test code = 2801) [id number] 06:23:00 Test Item Value Reference Range Interpretation Comments PHOSPHORUS (BEAKER) (test code = 2.8 mg/dL 2.3-4.7 604) POCT-GLUCOSE [id number] 20:51:00 Test Item Value Reference Range Interpretation Comments POC-GLUCOSE METER 166 mg/dL 70-110 H : TESTED A T [facility] (BEAKER) (test code CAMBRIDG E BLDG A, = 1538) [place] [address] 0: Senior Software Engineer Analytics/Techni santana ID = [id number] for ABI RAMOS POCT-GLUCOSE [id number] 18:21:00 Test Item Value Reference Range Interpretation Comments POC-GLUCOSE METER 159 mg/dL 70-110 H : TESTED A T [facility] (BEAKER) (test code CAMBRIDG E BLDG A, = 1538) [place] [address] 0: Senior Software Engineer Analytics/Techni santana ID = [id number] for JACKY DUONG EKG 12 [id number] 14:57:57Interface, External Ris In - 09/18/2019 2:58 PM CDTVentricular Rate 83 BPMAtrial Rate 84 BPMQRS Duration 98 msQ-T Interval 378 msQTC Calculation(Bazett) 444 msR [place] 40 degreesT [place] 103 degreesAtrial fibrillationT wave abnormality, consider lateral ischemia or digitalis effectAbnormal ECGWhen compared with ECG of 15-SEP-2019 04:16,Atrial fibrillation has replaced Sinus rhythmNonspecific T wave abnormality now evident in Inferior leadsInverted T waves have replaced nonspecific T wave abnormality inLateral leadsQT has shortenedConfirmed by MD JORDEN, BARNEY Mg (4120) on 09/18/2019 2:57:56 [facility] HospitalFL, [id number] 14:37:00Reason for exam:->gerdFINAL REPORT Barium esophagogram Clinical [...] Henao Verified Date/Time: 09/18/2019 14:37:01 Reading Location: [address] Ortho Consult Reading Room [facility] [id number] 14:37:00Interface, External Ris In - 09/18/2019 2:39 [...] Henao Verified Date/Time: 09/18/2019 14:37:01 Reading Location: [address] Ortho Consult [facility] [id number] 14:31:00 Test Item Value Reference Range Interpretation Comments POC-GLUCOSE METER 166 mg/dL 70-110 H : TESTED A T [facility] 6720 (BEAKER) (test code = [place], 1538) [id number]: Senior Software Engineer Analytics/Techni santana ID = [id number] for KIZHAKEKATTIL, MELISSA [place], ESOPH, SWALLOW FUNCTION, WITH CINE OR [id number] 13:23:00MBSS w/robin + esophagram as feasibleReason for [...] Henao Verified Date/Time: 09/18/2019 13:23:18 Reading Location: [address] Ortho Consult Reading Room [facility] esoph swallow funct with cine [id number] 13:23:00Interface, External Ris In - 09/18/2019 1:25 [...] Number of images: 12 Signed: Karin Henao MDReport Verified Date/Time: 09/18/2019 13:23:18 Reading Location: [address] Ortho Consult Reading Room [facility] [id number] 11:13:00 Test Item Value Reference Range Interpretation Comments POC-GLUCOSE METER 115 mg/dL 70-110 H : TESTED A T [facility] 6720 (BEAKER) (test code = KAVYA Bennett [facility], 1538) [address]: Senior Software Engineer Analytics/Techni santana ID = [id number] for MELISSA GILLILAND CBC W/PLT COUNT & AUTO [id number] 11:02:00 Test Item Value Reference Range Interpretation Comments WHITE BLOOD CELL COUNT (BEAKER) 7.0 K/ L 3.5-10.5 (test code = [...] 0-1 PERCENT (BEAKER) (test code = 2801) [id number] 06:59:00 Test Item Value Reference Range Interpretation Comments PHOSPHORUS (BEAKER) (test code = 2.1 mg/dL 2.3-4.7 L 604) Senior Software Engineer Analytics ID - DANO [id number] 06:59:00 Test Item Value Reference Range Interpretation Comments MAGNESIUM (BEAKER) (test code = 2.0 mg/dL 1.6-2.6 627) Senior Software Engineer Analytics ID - DANO MBASIC METABOLIC [id number] 06:59:00 Test Item Value Reference Range Interpretation [...] 697) EGFR (BEAKER) (test 55 mL/min/1.73 ESTIMA CARSON GFR IS code = 1092) sq m NOT ACCURATE CREATININE CLEARANCE IN PREDICTING GLOMERULAR FILTRATION RATE . ESTIMATED GFR I S NOT APPLICABLE FOR DIALYSIS PATIEN TS. Senior Software Engineer Analytics ID - DANO MRAD, CHEST, 1 VIEW, NON [id number] 04:57:00Reason for exam:->CTShould this be performed at the bedside?->YesFINAL REPORT RAD, CHEST, 1 VIEW, NON DEPT INDICATION: CT COMPARISON: Prior day 's exam FINDINGS: Portable frontal view of the chest. IMPRESSION: Support Lines: The left chest tube has been removed. Lungs and pleura: No significant change in pulmonary venous congestion and small left pleural effusion with adjacent left basilar airspace opacity. No pneumothorax.Heart and mediastinum: Stable contours. Additional findings: None. Signed: Abhinav Cuevas MDReport Verified Date/Time:09/18/2019 04:57:13 POCT-GLUCOSE [id number] 21:54:00 Test Item Value Reference Range Interpretation Comments POC-GLUCOSE METER 164 mg/dL 70-110 H : TESTED A T [facility] 6720 (BEAKER) (test code = [facility] [employer] [facility], 1538) [address]: Senior Software Engineer Analytics/Techni santana ID = [id number] for BIANCA RICHARDS POCT-GLUCOSE [id number] 21:34:00 Test Item Value Reference Range Interpretation Comments POC-GLUCOSE METER 165 mg/dL 70-110 H : TESTED A T [facility] 6720 (BEAKER) (test code = [facility] [employer] [facility], 1538) [address]: Senior Software Engineer Analytics/Techni santana ID = [id number] for MELISSA GILLILAND Urinalysis w/Microscopic + Reflex to [id number] 17:29:00 Test Item Value Reference Range Interpretation Comments Color, UA (test code Yellow = 5778-6) Clarity, UA (test Clear code = 5767-9) Specific Purvis, UA 1.018 1.001-1.035 (test code = 5811-5) pH, UA (test code = 5.0 5.0-8.0 5803-2) Protein, UA (test 10 mg/dL Negative A code = 46394-1) Glucose, UA (test Negative Negative code = 365) Ketones, UA (test Negative Negative code = 2514-8) Bilirubin, UA (test Negative Negative code = 08940-7) Blood, UA (test code Negative Negative = 80091-5) Nitrite, UA (test Negative Negative code = 5802-4) Leukocytes, UA (test Large Negative A code = 5799-2) Urobilinogen, UA 0.2 mg/dL 0.2-1 (test code = 14437-0) RBC, UA (test code = 1 See_Comment [Autom ated 32609-7) message] The system which generated this result transmit carson reference range : /HPF. The reference range was not used to interpret this result as normal/abnormal . WBC, UA (test code = 4 See_Comment [Autom ated 5821-4) message] The system which generated this result transmit carson reference range : /HPF. The reference range was not used to interpret this result as normal/abnormal . Bacteria, UA (test Few code = 70755-3) Mucus (test code = Few 8247-9) Squam Epithel, UA <1 See_Comment [Automate d (test code = 00114-9) messag e] The system which generated this result transmit carson reference range : /HPF. The reference range was not used to interpret this result as normal/abnormal . Hyaline Casts, UA 12 See_Comment [Automate d (test code = 45179-9) messag e] The system which generated this result transmit carson reference range : /LPF. The reference range was not used to interpret this result as normal/abnormal . Amorphous Crystals Rare (test code = 38122-2) Specimen Source (test code = 2795) KAILA (test code = KAILA) Senior Software Engineer Analytics ID - [auto]Senior Software Engineer Analytics ID - tech Lab Interpretation Abnormal (test code = 44894-2) [facility]FLEX URINE [id number] 17:29:00 Test Item Value Reference Range Interpretation [...] = 1584) SOURCE(BEAKER) (test code = 2795) Senior Software Engineer Analytics ID - [auto]Senior Software Engineer Analytics ID - techPOCT-GLUCOSE [id number] 12:48:00 Test Item Value Reference Range Interpretation Comments POC-GLUCOSE METER 168 mg/dL 70-110 H : TESTED A T [facility] 6720 (BEAKER) (test code = KAV[place], 1538) [address]: Senior Software Engineer Analytics/Techni santana ID = [id number] for SAMJANES LOPEZCY RAD, CHEST, 1 VIEW, NON [id number] 08:52:00Reason for exam:->CTShould this be performed at [...] by technique with sternotomy wires. Signed: Tiara Cota MDReport Verified Date/Time: 09/17/2019 08:52:23 Reading Location: [facility] Radiology Reading Room POCT- GLUCOSE [id number] 08:29:00 Test Item Value Reference Range Interpretation Comments POC-GLUCOSE METER 102 mg/dL 70-110 : [facility] ([facility]ER[facility] (test code = KAVYA Bennett [facility], 1538) [address]: Senior Software Engineer Analytics/Techni santana ID = [id number] for MELISSA GILLILAND [id number] 06:46:00 Test Item Value Reference Range Interpretation Comments PHOSPHORUS (BEAKER) (test code = 1.9 mg/dL 2.3-4.7 L 604) Senior Software Engineer Analytics ID - YELENA [id number] 06:46:00 Test Item Value Reference Range Interpretation Comments MAGNESIUM (BEAKER) (test code = 2.3 mg/dL 1.6-2.6 627) Senior Software Engineer Analytics ID - YELENA LBASIC METABOLIC [id number] 06:46:00 Test Item Value Reference Range Interpretation [...] 697) EGFR (BEAKER) (test 58 mL/min/1.73 ESTIMA CARSON GFR IS code = 1092) sq m NOT ACCURATE CREATININE CLEARANCE IN PREDICTING GLOMERULAR FILTRATION RATE . ESTIMATED GFR I S NOT APPLICABLE FOR DIALYSIS PATIEN TS. Senior Software Engineer Analytics ID - PIAYA LCBC W/PLT COUNT & AUTO [id number] 06:20:00 Test Item Value Reference Range Interpretation [...] (BEAKER) (test code = 2801) Prepare Leuko-Red [id number] 23:54:00 Test Item Value Reference Range Interpretation Comments CROSSMATCH (test code = 2264) COMPATIBLE Unit ABO (test code = A Neg 5437111) UNIT NUMBER (test code = [id number] 934-0) Status (test code = 7186979) TX_TIMEINCHART Blood Bank Product (test code RED BLOOD CELLS = 2263) PRODUCT CODE (test code = P3259W80 933-2) [facility] [id number] 21:06:00 Test Item Value Reference Range Interpretation Comments POC-GLUCOSE METER 172 mg/dL 70-110 H : TESTED A T [facility] 6720 (BEAKER) (test code = [place], 1538) [address]: Senior Software Engineer Analytics/Techni santana ID = [id number] for BIANCA RICHARDS Mid [id number] 16:48:31Sylvia Trejo NP 09/16/2019 4:52 PMMid LineDate/Time: [...] to verify the correct patient, procedure, equipment, customer support analyst and site/side marked as required.Indications: vascular accessAnesthesia: [...] op heart surgery/difficult piv Procedures Performed: Mid Li neSpecimens removed: NoneEstimated blood loss (mL): NoneComplications: NoneType of anesthesia: NoneGrafts or Implants: None Comments: Catheter length: 17 cmLot#: [id number]: 1[facility] 2019-09-16 12:38:00 Test Item Value Reference Range Interpretation Comments POC-GLUCOSE METER 181 mg/dL 70-110 H : TESTED A T [facility] 6720 (BEAKER) (test code = KAV[place], 1538) [address]: Senior Software Engineer Analytics/Techni santana ID = [id number] for LO SCARLET, BRITTANY RAD, CHEST, 1 VIEW, NON [id number] 09:32:00Reason for exam:->CTShould this be performed at the bedside?->YesFINAL REPORT CLINICAL HISTORY: CT TECHNIQUE: 1 view of the chest. COMPARISON:09/15/2019 IMPRESSION: The supporting lines and tubes are similar appearing. There is no pneumothorax.Bilateral lower lung bandlike opacities are similar appearing. There is no significant appearing pleural fluid. The cardiomediastinal silhouette is magnified by technique with sternotomy wires. Signed: Tiara Cota MDReport Verified Date/Time: 09/16/2019 09:32:30 Reading Location: [facility] Radiology Reading Room [id number] 04:09:00 Test Item Value Reference Range Interpretation Comments PHOSPHORUS (BEAKER) (test code = 3.2 mg/dL 2.3-4.7 604) Senior Software Engineer Analytics ID - DANO [id number] 04:09:00 Test Item Value Reference Range Interpretation Comments MAGNESIUM (BEAKER) (test code = 2.2 mg/dL 1.6-2.6 627) Senior Software Engineer Analytics ID - DANO MBASIC METABOLIC [id number] 04:09:00 Test Item Value Reference Range Interpretation [...] 697) EGFR (BEAKER) (test 49 mL/min/1.73 ESTIMA CARSON GFR IS code = 1092) sq m NOT ACCURATE CREATININE CLEARANCE IN PREDICTING GLOMERULAR FILTRATION RATE . ESTIMATED GFR I S NOT APPLICABLE FOR DIALYSIS PATIEN TS. Senior Software Engineer Analytics ID - DANO MPT/[id number] 04:07:00 Test Item Value Reference Interpretation Comments Range Protime (test code = 16.1 See_Comment H [Autom ated 5902-2) message] The system which generated this result transmitted reference range : 11.9 - 14.2 seconds. The reference range was not used to interpret this result as normal/abnormal . INR (test code = 1.3 See_Comment [Automated 5951-6) message] The system which generated this result transmitted reference range : <=5.9. The reference range was not used to interpret this result as normal/abnormal . PTT (test code = 34.3 See_Comment [Automated 62535-7) message] The system which generated this result transmitted reference range : 22.5 - 36.0 seconds. The reference range was not used to interpret this result as normal/abnormal . KAILA (test code = Effective 09/03/2018: KAILA) PT Reference Range ChangeNew: 11.9-14.2 Previous: 11.7-14.7 RECOMMENDED COUMADIN/WARFARIN INR THERAPY RANGESSTANDARD DOSE: 2.0-3.0 Includes: PROPHYLAXIS for venous thrombosis, systemic embolization; TREATMENT for venous thrombosis and/or pulmonary embolus.HIGH RISK: Target INR is 2.5-3.5 for patients wiht mechanical heart valves. Lab Interpretation Abnormal (test code = 18337-0) [id number] 04:07:00 Test Item Value Reference Range Interpretation [...] Comments WBC (test code = 6690-2) 10.1 See_Comment [A utomated message] The system Nival generated this result transmitted ref erence range: 3.5 - 10 .5 K/L. The refe rence range was not u sed to interpret this result as normal/abnor mal. RBC (test code = 789-8) 2.78 See_Comment L [Au tomated message] The system Nival generated this result transmitted ref erence range: 3.93 - 5 .22 M/L. The refe rence range was not u sed to interpret this result as normal/abnor mal. MCHC (test code = 786-4) 32.4 See_Comment L [A utomated message] The system Nival generated this result transmitted ref erence range: 32.2 - 3 5.5 GM/DL. The refe rence range was not u sed to interpret this result as normal/abnor mal. Hematocrit (test code = 25.6 % 34.1-44.9 L 4544-3) MCV (test code = 787-2) 92.1 fL 79.4-94.8 MCH (test code = 785-6) 29.9 pg 25.6-32.2 RDW (test code = 788-0) 15.7 % 11.7-14.4 H Platelets (test code = 82 See_Comment L [Aut omated message] 777-3) The system Nival generated this result transmitted ref erence range: 150 - 45 0 K/CU MM. The referen ce range was not u sed to interpret this result as normal/abnor mal. MPV (test code = 11.1 fL 9.4-12.3 39335-2) nRBC (test code = 413) 0 See_Comment [Aut omated message] The system Nival generated this result transmitted ref erence range: 0 - 0 /1 00 WBC. The refere nce range was not u sed to interpret this result as normal/abnor mal. Lab Interpretation (test Abnormal code = 73350-2) [facility]2019-[facility]-16 03:49:00 Test Item Value Reference [...] WBC 0-0 (test code = 413) Calcium, [id number] 03:46:00 Test Item Value Reference Range Interpretation Comments Calcium, Ion (test code = 1993-) 1.14 mmol/L 1.12-1.27 pH, Blood (test code = 02364-7) 7.34 [facility]CALCIUM, [id number] 03:46:00 Test Item Value Reference Range Interpretation Comments CALCIUM IONIZED (BEAKER) (test 1.14 mmol/L 1.12-1.27 code = 698) PH, BLOOD (BEAKER) (test code = 7.34 1810) Prepare [id number] 23:54:00 Test Item Value Reference Range Interpretation Comments CROSSMATCH (test code = COMPATIBLE 2041) Unit ABO (test code = A Neg 0456957) UNIT NUMBER (test code = [id number] 934-0) Status (test code = RETURNED FROM ISSUE 4686150) Blood Bank Product (test RED BLOOD CELLS code = 2263) PRODUCT CODE (test code = K8279K03 933-2) [facility] [id number] 22:42:00 Test Item Value Reference Range Interpretation Comments POC-GLUCOSE METER 180 mg/dL 70-110 H : TESTED A T [facility] 6720 (BEAKER) (test code = [facility], 1538) 97448: Senior Software Engineer Analytics/Techni santana ID = [id number] for CE RVANTES, PRIYANKA POCT-GLUCOSE [id number] 18:26:00 Test Item Value Reference Range Interpretation Comments POC-GLUCOSE METER 149 mg/dL 70-110 H : TESTED A T [facility] 6720 (BEAKER) (test code = [facility], 1538) 91537: Senior Software Engineer Analytics/Techni santana ID = [id number] for BARRENTINE, LB PHEN POCT-GLUCOSE [id number] 15:18:00 Test Item Value Reference Range Interpretation Comments POC-GLUCOSE METER 194 mg/dL 70-110 H : TESTED A T [facility] 6720 (BEAKER) (test code = [facility], 1538) 85564: Senior Software Engineer Analytics/Techni santana ID = [id number] for BARRENTINE, LB PHEN CBC (HEMOGRAM ONLY)2019-09-15 [...] WBC 0-0 (test code = 413) POCT-GLUCOSE [id number] 08:26:00 Test Item Value Reference Range Interpretation Comments POC-GLUCOSE METER 87 mg/dL 70-110 : TESTED A T [facility] 6720 (BEAKER) (test code = KAVYA Bennett [facility], 1538) 25035: Senior Software Engineer Analytics/Techni santana ID = [id number] for JAIRO BRAVO POCT-GLUCOSE [id number] 06:12:00 Test Item Value Reference Range Interpretation Comments POC-GLUCOSE METER 106 mg/dL 70-110 : TESTED A T [facility] 6720 (BEAKER) (test code = KAVYA Bennett [facility], 1538) 53979: Senior Software Engineer Analytics/Techni santana ID = [id number] for PRIYANKA BOYKIN Blood gas, [id number] 05:38:00 Test Item Value Reference Range Interpretation Comments pH, Arterial (test code 7.34 7.35-7.45 L = 2744-1) pCO2, Arterial (test 44 See_Comment [Autom ated code = 2019-8) message] The system which generated this result transmitted reference range : 35 - 45 mmHg. The reference range was not used to interpret this result as normal/abnormal . pO2, Arterial (test 199 See_Comment H [Automa carson code = 8943-7) message] The system which generated this result transmitted reference range : 80 - 90 mmHg. The reference range was not used to interpret this result as normal/abnormal . O2 Sat, Arterial (test 99.3 % 96-97 H code = 2708-6) HCO3, Arterial (test 23 mmol/L 21-29 code = 1960-4) Base Excess, Arterial -2.5 mmol/L -2-3 L (test code = 1925-7) Patient Temperature 37.0 C (test code = 8310-5) FIO2 (test code = 1819) 36 % Lab Interpretation Abnormal (test code = 09034-8) [facility]BL[facility] GAS, [id number] 05:38:00 Test Item Value Reference Range Interpretation [...] (test code = 1819) 36.0 % POCT-GLUCOSE [id number] 05:22:00 Test Item Value Reference Range Interpretation Comments POC-GLUCOSE METER 112 mg/dL 70-110 H : TESTED A T [facility] 6720 (BEAKER) (test code = [place], 1538) 53520: Senior Software Engineer Analytics/Techni santana ID = [id number] for CE PRIYANKA [place] Oxygen saturation, [id number] 04:44:00 Test Item Value Reference Range Interpretation Comments O2 Saturation (Measured) (test code = 90.6 % 51946-9) [facility] HospitalOXYGEN SATURATION, [id number] 04:44:00 Test Item Value Reference Range Interpretation Comments O2 SATURATION (MEASURED) (BEAKER) 90.6 % (test code = 1455) CALCIUM, [id number] 04:13:00 Test Item Value Reference Range Interpretation Comments CALCIUM IONIZED (BEAKER) (test 1.15 mmol/L 1.12-1.27 code = 698) PH, BLOOD (BEAKER) (test code = 7.34 1810) Lactic Acid, [id number] 04:04:00 Test Item Value Reference Range Interpretation Comments Lactate, Art (test code = 1.1 mmol/L 0.5-2.2 2874) KAILA (test code = KAILA) Senior Software Engineer Analytics ID - DANO Quinonez Lab Interpretation (test Normal code = 26098-0) [facility] HospitalLACTIC ACID, [id number] 04:04:00 Test Item Value Reference Range Interpretation Comments LACTATE BLOOD ARTERIAL (2) 1.1 mmol/L 0.5-2.2 (BEAKER) (test code = 2874) Senior Software Engineer Analytics ID - DANO [id number] 04:04:00 Test Item Value Reference Range Interpretation Comments PHOSPHORUS (BEAKER) (test code = 3.7 mg/dL 2.3-4.7 604) Senior Software Engineer Analytics ID - DANO [id number] 04:04:00 Test Item Value Reference Range Interpretation Comments MAGNESIUM (BEAKER) (test code = 2.5 mg/dL 1.6-2.6 627) Senior Software Engineer Analytics ID - DANO MBASIC METABOLIC [id number] 04:04:00 Test Item Value Reference Range Interpretation [...] 697) EGFR (BEAKER) (test 46 mL/min/1.73 ESTIMA CARSON GFR IS code = 1092) sq m NOT ACCURATE CREATININE CLEARANCE IN PREDICTING GLOMERULAR FILTRATION RATE . ESTIMATED GFR I S NOT APPLICABLE FOR DIALYSIS PATIEN TS. Senior Software Engineer Analytics ID - DANO MPT/[id number] 04:01:00 Test Item Value Reference Range Interpretation [...] 0-0 (BEAKER) (test code = 413) POCT-GLUCOSE [id number] 03:45:00 Test Item Value Reference Range Interpretation Comments POC-GLUCOSE METER 125 mg/dL 70-110 H : TESTED A T [facility] 6720 (BEAKER) (test code = [facility] [place], 1538) 02254: Senior Software Engineer Analytics/Techni santana ID = [id number] for CE RVANTES, PRIYANKA RAD, CHEST, 1 VIEW, NON [id number] 02:16:00while patient is intubated or has chest tubes.Reason for exam:->Status post CV SurgeryShould thisbe performed at the bedside?->YesFINAL REPORT CLINICAL INDICATION: Postop Comparison: 09/14/2019 at 1736 hours The cardiomediastinal contours are stable. The lung volumes have decreased after extubation. Worsening infrahilar opacities may reflect atelectasis but pneumonitis should be excluded clinically. There is no pneumothorax. Remaining support lines are stable. Signed: Chema Ibrahim MDReport Verified Date/Time: 09/15/2019 02:16:54 POCT-GLUCOSE METER 2019-09-15 01:53:00 Test Item Value Reference Range Interpretation Comments POC-GLUCOSE METER 111 mg/dL 70-110 H : TESTED A T [facility] 6720 (BEAKER) (test code = [facility], 1538) 37191: Senior Software Engineer Analytics/Techni santana ID = [id number] for CE RVANTES, PRIYANKA POCT-GLUCOSE [id number] 00:23:00 Test Item Value Reference Range Interpretation Comments POC-GLUCOSE METER 140 mg/dL 70-110 H : TESTED A T [facility] 6720 (BEAKER) (test code = [facility], 1538) 61068: Senior Software Engineer Analytics/Techni santana ID = [id number] for CE RVANTES, PRIYANKA POCT-GLUCOSE [id number] 00:23:00 Test Item Value Reference Range Interpretation Comments POC-GLUCOSE METER 150 mg/dL 70-110 H : TESTED A T [facility] 6720 (BEAKER) (test code = [facility], 1538) 07780: Senior Software Engineer Analytics/Techni santana ID = [id number] for CE RVANTES, PRIYANKA POCT-GLUCOSE [id number] 00:23:00 Test Item Value Reference Range Interpretation Comments POC-GLUCOSE METER 129 mg/dL 70-110 H : TESTED A T [facility] 6720 (BEAKER) (test code = [facility], 1538) 63063: Senior Software Engineer Analytics/Techni santana ID = [id number] for CE RVANTES, PRIYANKA POCT-GLUCOSE [id number] 00:23:00 Test Item Value Reference Range Interpretation Comments POC-GLUCOSE METER 143 mg/dL 70-110 H : TESTED A T [facility] (BEAKER) (test code = KAV[facility] [place], 1538) 80442: Senior Software Engineer Analytics/Techni santana ID = [id number] for CE CLEM, PRIYANKA RAD, CHEST, 1 VIEW, NON [id number] 22:37:00Reason for exam:->Resp failure/ vent changes madeShould [...] Chema Ibrahim MDReport Verified Date/Time: 09/14/2019 22:37:51 [id number] 21:29:00 Test Item Value Reference Range Interpretation Comments PHOSPHORUS (BEAKER) (test code = 3.9 mg/dL 2.3-4.7 604) Senior Software Engineer Analytics ID - [id number] 21:29:00 Test Item Value Reference Range Interpretation Comments MAGNESIUM (BEAKER) (test code = 2.5 mg/dL 1.6-2.6 627) Senior Software Engineer Analytics ID - BSBASIC METABOLIC [id number] 21:29:00 Test Item Value Reference Range Interpretation [...] 697) EGFR (BEAKER) (test 43 mL/min/1.73 ESTIMA CARSON GFR IS code = 1092) sq m NOT ACCURATE CREATININE CLEARANCE IN PREDICTING GLOMERULAR FILTRATION RATE . ESTIMATED GFR I S NOT APPLICABLE FOR DIALYSIS PATIEN TS. Senior Software Engineer Analytics ID - BSLACTIC ACID, [id number] 21:22:00 Test Item Value Reference Range Interpretation Comments LACTATE BLOOD ARTERIAL (2) 1.4 mmol/L 0.5-2.2 (BEAKER) (test code = 2874) Senior Software Engineer Analytics ID - [id number] 21:21:00 Test Item Value Reference Range Interpretation [...] for patients wiht mechanical heart valves.BLOOD GAS, [id number] 21:16:00 Test Item Value Reference Range Interpretation [...] (test code = 1819) 36.0 % CALCIUM, [id number] 21:13:00 Test Item Value Reference Range Interpretation Comments CALCIUM IONIZED (BEAKER) (test 1.08 mmol/L 1.12-1.27 L code = 698) PH, BLOOD (BEAKER) (test code = 7.37 1810) OXYGEN SATURATION, [id number] 21:12:00 Test Item Value Reference Range Interpretation [...] (BEAKER) (test code = 413) LACTIC ACID, [id number] 19:08:00 Test Item Value Reference Range Interpretation Comments LACTATE BLOOD 1.0 mmol/L 0.5-2.2 Specimen sligh tly ARTERIAL (2) (BEAKER) hemoly zed (test code = 2874) Senior Software Engineer Analytics ID - DBPOCT-GLUCOSE [id number] 19:03:00 Test Item Value Reference Range Interpretation Comments POC-GLUCOSE METER 168 mg/dL 70-110 H : TESTED A T [facility] 6720 (BEAKER) (test code = KAVYA Bennett [facility] [place], 1538) 54918: Senior Software Engineer Analytics/Techni santana ID = [id number] for CE RVANTES, PRIYANKA HGB/HCT (H&H)-Stat [id number] 18:57:00 Test Item Value Reference Range Interpretation Comments Hemoglobin (test code = 786-4) 9.0 g/dL 12-15 L Hematocrit (test code = 4544-3) 26.0 % 36-45 L Lab Interpretation (test code = Abnormal 86446-3) [facility] HospitalBLO[facility] GAS, [id number] 18:57:00 Test Item Value Reference Range Interpretation [...] 1819) 40.0 % HGB/HCT (H&H) - STAT [id number] 18:57:00 Test Item Value Reference Range Interpretation Comments HEMOGLOBIN (BEAKER) (test code = 9.0 g/dL 12.0-15.0 L 410) HEMATOCRIT (BEAKER) (test code = 26.0 % 36.0-45.0 L 411) POCT-GLUCOSE [id number] 18:23:00 Test Item Value Reference Range Interpretation Comments POC-GLUCOSE METER 167 mg/dL 70-110 H : TESTED A T [facility] (BEAKER) (test code = KAVYA Bennett [place], 1538) 36663: Senior Software Engineer Analytics/Techni santana ID = [id number] for KELSEA SANDS BASIC METABOLIC [id number] 17:34:00 Test Item Value Reference Range Interpretation [...] 697) EGFR (BEAKER) (test 46 mL/min/1.73 ESTIMA CARSON GFR IS code = 1092) sq m NOT ACCURATE CREATININE CLEARANCE IN PREDICTING GLOMERULAR FILTRATION RATE . ESTIMATED GFR I S NOT APPLICABLE FOR DIALYSIS PATIEN TS. Senior Software Engineer Analytics ID - [id number] 16:37:00 Test Item Value Reference Range Interpretation Comments Glucose (test code = 2345-7) 218 mg/dL 70-105 H KAILA (test code = KAILA) Senior Software Engineer Analytics ID - BS Lab Interpretation (test Abnormal code = 31437-4) [facility] HospitalPotassium-[id number] 16:37:00 Test Item Value Reference Range Interpretation Comments Potassium (test code = 4.6 meq/L 3.5-5.1 Speci men 2823-3) slightly hemolyzed KAILA (test code = KAILA) Senior Software Engineer Analytics ID - BS Lab Interpretation Normal (test code = 41569-0) [facility] HospitalPOTASSIUM2020-06-08 16:37:00 Test Item Value Reference Range Interpretation Comments POTASSIUM (BEAKER) 4.6 meq/L 3.5-5.1 Specimen slightly (test code = 379) hemolyzed Senior Software Engineer Analytics ID - [id number] 16:37:00 Test Item Value Reference Range Interpretation Comments GLUCOSE RANDOM (BEAKER) (test code 218 mg/dL 70-105 H = 652) Senior Software Engineer Analytics ID - [id number] 16:12:00 Test Item Value Reference Range Interpretation Comments MAGNESIUM (BEAKER) 2.5 mg/dL 1.6-2.6 Specimen slightly (test code = 627) hemolyzed Senior Software Engineer Analytics ID - [id number] 16:12:00 Test Item Value Reference Range Interpretation Comments PHOSPHORUS (BEAKER) 3.3 mg/dL 2.3-4.7 Specimen slightly (test code = 604) hemolyzed Senior Software Engineer Analytics ID - BSLACTIC ACID, [id number] 16:09:00 Test Item Value Reference Range Interpretation Comments LACTATE BLOOD 1.0 mmol/L 0.5-2.2 Specimen sligh tly ARTERIAL (2) (BEAKER) hemoly zed (test code = 2874) Senior Software Engineer Analytics ID - [id number] 16:05:00 Test Item Value Reference Range Interpretation Comments Fibrinogen (test code = 3255-7) 270 mg/dl 225-434 Lab Interpretation (test code = Normal 61262-0) [facility]PTT[facility] 16:05:00 Test Item Value Reference Range Interpretation Comments PTT (test code = 13134-7) 28.7 See_Comment [ Automated message] The system Nival generated this result transmitted ref erence range: 22.5 - 3 6.0 seconds. The re ference range was not u sed to interpret this result as normal/abnor mal. Lab Interpretation (test Normal code = 71451-2) [facility] HospitalFIBRINOGEN2020-06-08 16:05:00 Test Item Value Reference Range Interpretation Comments FIBRINOGEN LEVEL (BEAKER) (test 270 mg/dl 225-434 code = 658) [id number] 16:05:00 Test Item Value Reference Range Interpretation [...] INR is2.5-3.5 for patients wiht mechanical heart valves.[id number] 16:05:00 Test Item Value Reference Range Interpretation Comments PARTIAL THROMBOPLASTIN TIME 28.7 seconds 22.5-36.0 (BEAKER) (test code = 760) Prothromin time/[id number] 16:04:00 Test Item Value Reference Interpretation Comments Range Protime (test code = 17.3 See_Comment H [Autom ated 5902-2) message] The system which generated this result transmitted reference range : 11.9 - 14.2 seconds. The reference range was not used to interpret this result as normal/abnormal . INR (test code = 1.5 See_Comment [Automated 2151-6) message] The system which generated this result transmitted reference range : <=5.9. The reference range was not used to interpret this result as normal/abnormal . KAILA (test code = Effective 09/03/2018: KAILA) PT Reference Range ChangeNew: 11.9-14.2 Previous: 11.7-14.7 RECOMMENDED COUMADIN/WARFARIN INR THERAPY RANGESSTANDARD DOSE: 2.0-3.0 Includes: PROPHYLAXIS for venous thrombosis, systemic embolization; TREATMENT for venous thrombosis and/or pulmonary embolus.HIGH RISK: Target INR is 2.5-3.5 for patients wiht mechanical heart valves. Lab Interpretation Abnormal (test code = 69152-6) [facility] HospitalPROTHROMBIN TIME/[id number] 16:04:00 Test Item Value Reference Range Interpretation [...] mechanical heart valves.CBC W/PLT COUNT & AUTO [id number] 15:57:00 Test Item Value Reference Range Interpretation [...] = 2801) RAD, CHEST, 1 VIEW, NON [id number] 15:56:00Reason for exam:->Status post CV Surgery post [...] free of infiltrates or effusions. Signed: Tiara Cota MDReport Verified Date/Time: 09/14/2019 15:56:42 Reading Location: [facility] Radiology Reading Room Platelet [id number] 15:53:00 Test Item Value Reference Range Interpretation Comments Platelets (test code 95 See_Comment L [Autom ated = 777-3) message] The system which generated this result transmit carson reference range : 150 - 450 K/CU MM. The reference range was not u sed to interpret th is result as normal/abnormal . KAILA (test code = KAILA) Senior Software Engineer Analytics ID - [id number] Lab Interpretation Abnormal (test code = 49867-1) [facility] HospitalPLATELET [id number] 15:53:00 Test Item Value Reference Range Interpretation Comments PLATELET COUNT (BEAKER) (test code 95 K/CU MM 150-450 L = 756) Senior Software Engineer Analytics ID - 6000Glucose-Stat [id number] 15:43:00 Test Item Value Reference Range Interpretation Comments Glucose (test code = 2345-7) 221 mg/dL 70-110 H Lab Interpretation (test code = Abnormal 76456-7) [facility] [id number] 15:43:00 Test Item Value Reference Range Interpretation Comments Sodium (test code = 2951-2) 136 meq/L 136-145 Lab Interpretation (test code = Normal 02822-2) [facility] HospitalPotassium-Stat [id number] 15:43:00 Test Item Value Reference Range Interpretation Comments Potassium (test code = 2823-3) 4.5 meq/L 3.6-5.5 Lab Interpretation (test code = Normal 01001-8) [facility] [id number] 15:43:00 Test Item Value Reference Range Interpretation Comments SODIUM (BEAKER) (test code = 381) 136 meq/L 136-145 POTASSIUM-STAT [id number] 15:43:00 Test Item Value Reference Range Interpretation Comments POTASSIUM (BEAKER) (test code = 4.5 meq/L 3.6-5.5 379) HGB/HCT (H&H) - STAT [id number] 15:43:00 Test Item Value Reference Range Interpretation Comments HEMOGLOBIN (BEAKER) (test code = 10.2 g/dL 12.0-15.0 L 410) HEMATOCRIT (BEAKER) (test code = 30.0 % 36.0-45.0 L 411) BLOOD GAS, [id number] 15:43:00 Test Item Value Reference Range Interpretation [...] (test code = 1819) 50.0 % GLUCOSE-STAT [id number] 15:43:00 Test Item Value Reference Range Interpretation Comments GLUCOSE RANDOM (BEAKER) (test code 221 mg/dL 70-110 H = 652) BASIC METABOLIC [id number] 15:43:00 Test Item Value Reference Range Interpretation [...] 697) EGFR (BEAKER) (test 35 mL/min/1.73 ESTIMA CARSON GFR IS code = 1092) sq m NOT ACCURATE CREATININE CLEARANCE IN PREDICTING GLOMERULAR FILTRATION RATE . ESTIMATED GFR I S NOT APPLICABLE FOR DIALYSIS PATIEN TS. Senior Software Engineer Analytics ID - [id number] 15:42:00 Test Item Value Reference Range Interpretation Comments PHOSPHORUS (BEAKER) (test code = 3.9 mg/dL 2.3-4.7 604) Senior Software Engineer Analytics ID - BSOXYGEN SATURATION, [id number] 15:41:00 Test Item Value Reference Range Interpretation Comments O2 SATURATION (MEASURED) (BEAKER) 78.0 % (test code = 1455) CALCIUM, [id number] 15:41:00 Test Item Value Reference Range Interpretation Comments CALCIUM IONIZED (BEAKER) (test 1.15 mmol/L 1.12-1.27 code = 698) PH, BLOOD (BEAKER) (test code = 7.36 1810) POC ACTIVATED CLOTTING [id number] 14:22:00 Test Item Value Reference Range Interpretation Comments Activated Clotting Time 109 sec : 74 -137 seconds, (test code = 441) Baseline: TESTED AT [address], [facility] 30: Senior Software Engineer Analytics/Techni santana ID = [id number] for NG VERÓNICA, VERONICA [facility][id number] 14:22:00 Test Item Value Reference Range Interpretation Comments ACTIVATED CLOTTING TIME 109 sec : 74 -137 seconds, (BEAKER) (test code = Baseli ne: TESTED AT [facility]) [address], [facility] 30: Senior Software Engineer Analytics/Techni santana ID = [id number] for NG VERÓNICA, VERONICA [id number] 14:22:00 Test Item Value Reference Range Interpretation Comments ACTIVATED CLOTTING TIME 621 sec : 74 -137 seconds, (BEAKER) (test code = Baseli ne: TESTED AT 441) [address], [facility] 30: Senior Software Engineer Analytics/Techni santana ID = [id number] for NG VERÓNICA, VERONICA [id number] 14:22:00 Test Item Value Reference Range Interpretation Comments ACTIVATED CLOTTING TIME 505 sec : 74 -137 seconds, (BEAKER) (test code = Baseli ne: TESTED AT 441) [address], [facility] 30: Senior Software Engineer Analytics/Techni santana ID = [id number] for NG VERÓNICA, VERONICA [id number] 14:22:00 Test Item Value Reference Range Interpretation Comments ACTIVATED CLOTTING TIME 406 sec : 74 -137 seconds, (BEAKER) (test code = Baseli ne: TESTED AT 441) [address], [facility] 30: Senior Software Engineer Analytics/Techni santana ID = [id number] for NG VERÓNICA, VERONICA BLOOD GAS, [id number] 14:16:00 Test Item Value Reference Range Interpretation [...] code = 1819) 100.0 % SODIUM NA-STAT [id number] 14:16:00 Test Item Value Reference Range Interpretation Comments SODIUM (BEAKER) (test code = 381) 133 meq/L 136-145 L GLUCOSE-STAT [id number] 14:16:00 Test Item Value Reference Range Interpretation Comments GLUCOSE RANDOM (BEAKER) (test code 203 mg/dL 70-110 H = 652) HGB/HCT (H&H) - STAT [id number] 14:16:00 Test Item Value Reference Range Interpretation Comments HEMOGLOBIN (BEAKER) (test code = 8.8 g/dL 12.0-15.0 L 410) HEMATOCRIT (BEAKER) (test code = 26.0 % 36.0-45.0 L 411) POTASSIUM-STAT [id number] 14:15:00 Test Item Value Reference Range Interpretation Comments POTASSIUM (BEAKER) (test code = 4.8 meq/L 3.6-5.5 379) BLOOD GAS, [id number] 13:46:00 Test Item Value Reference Range Interpretation [...] (test code = 1819) 100.0 % GLUCOSE-STAT [id number] 13:46:00 Test Item Value Reference Range Interpretation Comments GLUCOSE RANDOM (BEAKER) (test code 216 mg/dL 70-110 H = 652) HGB/HCT (H&H) - STAT [id number] 13:46:00 Test Item Value Reference Range Interpretation Comments HEMOGLOBIN (BEAKER) (test code = 7.2 g/dL 12.0-15.0 L 410) HEMATOCRIT (BEAKER) (test code = 21.0 % 36.0-45.0 L 411) SODIUM NA-STAT [id number] 13:45:00 Test Item Value Reference Range Interpretation Comments SODIUM (BEAKER) (test code = 381) 135 meq/L 136-145 L POTASSIUM-STAT [id number] 13:45:00 Test Item Value Reference Range Interpretation Comments POTASSIUM (BEAKER) (test code = 5.0 meq/L 3.6-5.5 379) POTASSIUM-STAT [id number] 13:11:00 Test Item Value Reference Range Interpretation Comments POTASSIUM (BEAKER) (test code = 5.4 meq/L 3.6-5.5 379) BLOOD GAS, [id number] 13:11:00 Test Item Value Reference Range Interpretation [...] (test code = 1819) 60.0 % GLUCOSE-STAT [id number] 13:11:00 Test Item Value Reference Range Interpretation Comments GLUCOSE RANDOM (BEAKER) (test code 209 mg/dL 70-110 H = 652) SODIUM NA-STAT [id number] 13:11:00 Test Item Value Reference Range Interpretation Comments SODIUM (BEAKER) (test code = 381) 132 meq/L 136-145 L HGB/HCT (H&H) - STAT [id number] 13:11:00 Test Item Value Reference Range Interpretation Comments HEMOGLOBIN (BEAKER) (test code = 6.7 g/dL 12.0-15.0 L 410) HEMATOCRIT (BEAKER) (test code = 20.0 % 36.0-45.0 L 411) BLOOD GAS, [id number] 12:53:00 Test Item Value Reference Range Interpretation [...] (test code = 1819) 60.0 % GLUCOSE-STAT [id number] 12:53:00 Test Item Value Reference Range Interpretation Comments GLUCOSE RANDOM (BEAKER) (test code 207 mg/dL 70-110 H = 652) SODIUM NA-STAT [id number] 12:53:00 Test Item Value Reference Range Interpretation Comments SODIUM (BEAKER) (test code = 381) 132 meq/L 136-145 L HGB/HCT (H&H) - STAT [id number] 12:53:00 Test Item Value Reference Range Interpretation Comments HEMOGLOBIN (BEAKER) (test code = 6.2 g/dL 12.0-15.0 L 410) HEMATOCRIT (BEAKER) (test code = 18.0 % 36.0-45.0 L 411) POTASSIUM-STAT [id number] 12:52:00 Test Item Value Reference Range Interpretation Comments POTASSIUM (BEAKER) (test code = 4.9 meq/L 3.6-5.5 379) SODIUM NA-STAT [id number] 11:16:00 Test Item Value Reference Range Interpretation Comments SODIUM (BEAKER) (test code = 381) 137 meq/L 136-145 POTASSIUM-STAT [id number] 11:16:00 Test Item Value Reference Range Interpretation Comments POTASSIUM (BEAKER) (test code = 4.1 meq/L 3.6-5.5 379) BLOOD GAS, [id number] 11:16:00 Test Item Value Reference Range Interpretation [...] (test code = 1819) 100.0 % GLUCOSE-STAT [id number] 11:16:00 Test Item Value Reference Range Interpretation Comments GLUCOSE RANDOM (BEAKER) (test code 127 mg/dL 70-110 H = 652) HGB/HCT (H&H) - STAT [id number] 11:16:00 Test Item Value Reference Range Interpretation Comments HEMOGLOBIN (BEAKER) (test code = 9.8 g/dL 12.0-15.0 L 410) HEMATOCRIT (BEAKER) (test code = 29.0 % 36.0-45.0 L 411) 2D Echo W/Doppler(CW/PW/Color)2019-09-14 09:36:25Ejection FractionSLEH ECHO HEARTLAB MKCKESSON CPACSInterface, External Ris In - 09/14/2019 9:36 AM C DTTransthoracic Echocardiography Report (TTE) Demographics Patient Name PRINCE GARCIA Date of Study 09/13/2019 Gender Female Visit Number [id number] Race Room Number SCPR Number Date of 1940 Referring Physician Jaden Zayas Age 78 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 ESTIMATED GFR I S NOT APPLICABLE FOR DIALYSIS PATIEN TS. Senior Software Engineer Analytics ID - DANO [id number] 05:51:00 Test Item Value Reference Range Interpretation Comments MAGNESIUM (BEAKER) (test code = 2.1 mg/dL 1.6-2.6 627) Senior Software Engineer Analytics ID - DANO [id number] 05:50:00 Test Item Value Reference Range Interpretation Comments MAGNESIUM (BEAKER) (test code = 2.1 mg/dL 1.6-2.6 627) Senior Software Engineer Analytics ID - DANO MBASIC METABOLIC [id number] 05:50:00 Test Item Value Reference Range Interpretation [...] 697) EGFR (BEAKER) (test 35 mL/min/1.73 ESTIMA CARSON GFR IS code = 1092) sq m NOT ACCURATE CREATININE CLEARANCE IN PREDICTING GLOMERULAR FILTRATION RATE . ESTIMATED GFR I S NOT APPLICABLE FOR DIALYSIS PATIEN TS. [id number] 05:03:00 Test Item Value Reference Range Interpretation Comments PARTIAL THROMBOPLASTIN TIME 89.6 seconds 22.5-36.0 H (BEAKER) (test code = 760) CBC W/PLT COUNT & AUTO [id number] 04:53:00 Test Item Value Reference Range Interpretation [...] = 2801) CBC W/PLT COUNT & AUTO [id number] 04:50:00 Test Item Value Reference Range Interpretation [...] 0-1 PERCENT (BEAKER) (test code = 2801) SARS-COV2/RT-PCR ([facility])2019-09-13 18:53:00 Test Item Value Reference Range Interpretation Comments SARS-COV2/RT-PCR (test Not Detected Not Detected, Negative code = 7723155) SARS-COV-2 PERFORMING LAB [facility] (test code = 0906004) Negative results do not preclude SARS-CoV-2 infection [...] of the Act.Fact Sheet for Healthcare Pro viders:https://www.Gradalis/Documents/Xpert%20Xpress%20SARS%20CoV-2/Fact%20Sh eets/302-3802%81DUQL-BRJ-3%20HEALTHCARE%20PROVIDERS%20FACT%20SHEET.pdfFact Sheet for Healthcare Patients:https://www.check24/Documents/Xpert%20Xpress%20SARS%20CoV-2/Fact%20Sheets/302-3801%20SARS-COV -2%20PATIENT%20FACT%20SHEET.pdfPerforming Laboratory:[facility], [place] [address]Uuxlyspkxn [id number] 09:01:00 Test Item Value Reference Range Interpretation Comments Hemoglobin A1C (test code = 4548-4) 6.7 % 4.3-6.1 H Lab Interpretation (test code = Abnormal 03143-4) [facility] HospitalHEMOGLOBIN [id number] 09:01:00 Test Item Value Reference Range Interpretation Comments HEMOGLOBIN A1C (BEAKER) (test code = 6.7 % 4.3-6.1 H 368) Platelet Aggregation: Function [id number] 07:55:00 Test Item Value Reference Range Interpretation Comments Pathologist: (test [place], code = 2622) Veronica (electonic signature) Platelets (test code 160 See_Comment [Autom ated = 2656) message] The system which generated this result transmitted reference range : 150 - 450 K/CU MM. The referen ce range was not used to interpr et this result as normal/abnormal . ADP (test code = 71 % 62-100 78106-2) Platelet Rich Plasma 179 See_Comment L [Autom ated (test code = 2134) message] The system which generated this result transmitted reference range : 200 - 300 k/cu mm. The referen ce range was not used to interpr et this result as normal/abnormal . Plt. Function Screen Normal Interpretation (test aggregation code = 4655) results with ADP. No evidence of platelet dysfunction or P2Y12 inhibitor effect. KAILA (test code = KAILA) Platelet Function Screen results may be falsely low with platelet counts<75,000/cu mm.Senior Software Engineer Analytics ID - [id number] Lab Interpretation Abnormal (test code = 59212-5) [facility] HospitalPLATELET AGGREGATION: FUNCTION [id number] 07:55:00 Test Item Value Reference Range Interpretation Comments [id number] Phil Mcguire M.D. (BEAKER) (test code = [...] may be falsely low with platelet counts<75,000/cu mm.Senior Software Engineer Analytics ID- [id number] AGGREGATION: FUNCTION SCREEN 2019-09-13 07:53:00 Test Item Value Reference Range Interpretation Comments [id number] Phil Mcgiure M.D. (BEAKER) (test code = (electonic signature) 6974) PLATELET COUNT AGG 178 K/CU MM 150-450 (BEAKER) (test code = 2656) ADP (BEAKER) (test code 55 % 62-100 L = 4654) PLATELET RICH 192 k/cu mm 200-300 L PLASMA(BEAKER) (test code = 2134) PLATELET FUNCTION SCREEN Decreased aggregation INTERPRETATION (BEAKER) with ADP which (test code = 4235) indicates platelet dysfunction that may be due to medication effect, uremia, or other platelet function disorders. Clinical correlation is required. Platelet Function Screen results may be falsely low with platelet counts<75,000/cu mm.Senior Software Engineer Analytics ID- [id number] 07:33:00 Test Item Value Reference Range Interpretation Comments PARTIAL THROMBOPLASTIN TIME 85.7 seconds 22.5-36.0 H (BEAKER) (test code = 760) ABORH, [id number] 07:28:00 Test Item Value Reference Range Interpretation Comments ABO Grouping (test code = 2588) A Rh Factor (test code = 2589) NEG [facility] HospitalType and screen, [id number] 06:06:00 Test Item Value Reference Range Interpretation Comments ABO/RH AUTOMATED (BEAKER) (test A NEGATIVE code = 2260) Ab Scrn (test code = 890-4) NEGATIVE [facility] HospitalLipid [id number] 06:04:00 Test Item Value Reference Range Interpretation Comments Triglycerides (test 83 mg/dL code = 2571-8) Cholesterol (test code 143 mg/dL = 2093-3) HDL (test code = 42 mg/dL 5-9) LDL Calculated (test 84 mg/dL code = 86693-4) KAILA (test code = KAILA) Triglyceride Reference Range: Low Risk <150 Borderline 150-199 High Risk 200-499 Very High Risk >=500 Cholesterol Reference Range: Low Risk <200 Borderline 200-239 High Risk >240 HDL Cholesterol Reference Range: Low Risk >=60 High Risk <40 LDL Cholesterol Reference Range: Optimal <100 Near Optimal 100-129 Borderline 130-159 High 160-189 Very High >=190 Senior Software Engineer Analytics ID - DANO M [facility] HospitalMAGNESIUM2020-06-07 06:04:00 Test Item Value Reference Range Interpretation Comments MAGNESIUM (BEAKER) (test code = 2.1 mg/dL 1.6-2.6 627) Senior Software Engineer Analytics ID - DANO MBASIC METABOLIC [id number] 06:04:00 Test Item Value Reference Range Interpretation [...] 697) EGFR (BEAKER) (test 38 mL/min/1.73 ESTIMA CARSON GFR IS code = 1092) sq m NOT ACCURATE CREATININE CLEARANCE IN PREDICTING GLOMERULAR FILTRATION RATE . ESTIMATED GFR I S NOT APPLICABLE FOR DIALYSIS PATIEN TS. Senior Software Engineer Analytics ID - DANO MLIPID [id number] 06:04:00 Test Item Value Reference Range Interpretation [...] Borderline 130-159 High 160-189 Very High >=190 Senior Software Engineer Analytics ID - DANO MPROTHROMBIN TIME/[id number] 05:20:00 Test Item Value Reference Range Interpretation [...] mechanical heart valves.CBC W/PLT COUNT & AUTO [id number] 05:01:00 Test Item Value Reference Range Interpretation [...] = 2801) RAD, CHEST, 1 VIEW, NON [id number] 01:56:00Reason for exam:->pre op screenShould this be [...] 09/13/2019 01:56:23 Carotid doppler bilateral 2019-09-12 21:31:06Ejection FractionSLEH ECHO HEARTLAB MKCKESSON CPACSRight Impression1. Post stent, [...] the external carotid artery with a velocity hl920nx/sec.3. There is non-occluding plaque in the common [...] - Carotid Duplex Study Demographics Patient Name PRINCE GARCIA Date of Study 09/12/2019 Age 78 Visit Number [id number] Gender Female Accession Number [id number] Date of 1940 Referring Satinder Wray Room Number 1054 Physician MD Theresa Career Law Clerk Padmaja Davis Interpreting Pauly Chow MD RVT [...] the external carotid artery with a velocity se772aj/sec.3. There is non-occluding plaque in the common [...] the left side. - Additional Measurements:ICAPSV/CCAPSV 1.98.ICAEDV/CCAEDV 1.56.[facility] [id number] 18:35:00 Test Item Value Reference Range Interpretation Comments PARTIAL THROMBOPLASTIN TIME 81.1 seconds 22.5-36.0 H (FRANDY) (test code = 760) Troponin [id number] 11:43:00 Test Item Value Reference Range Interpretation Comments Troponin I (test code = 1.26 ng/mL 0-0.03 55228-6) KAILA (test code = KAILA) Troponin I [...] failure, acidosis, acute neurological disease, and persistent tachyarrhythmia.Opera tor ID - CHAO C Lab Interpretation (test Abnormal code = 72948-6) [facility] HospitalTROP[facility]IN [id number] 11:43:00 Test Item Value Reference Range Interpretation Comments TROPONIN I (BEAKER) (test code = 1.26 ng/mL 0.00-0.03 HH 397) Troponin I (TnI) levels must be [...] failure, acidosis, acute neurological disease, and persistent tachyarrhythmia.Senior Software Engineer Analytics ID - CHAO [id number] 11:25:00 Test Item Value Reference Range Interpretation Comments PARTIAL THROMBOPLASTIN TIME 75.5 seconds 22.5-36.0 H (BEAKER) (test code = 760) TROPONIN [id number] 04:03:00 Test Item Value Reference Range Interpretation [...] failure, acidosis, acute neurological disease, and persistent tachyarrhythmia.Senior Software Engineer Analytics ID - SAURABH [id number] 03:47:00 Test Item Value Reference Range Interpretation [...]
[2020-07-24] MEDS ORDERED: MORPHINE 2 MG/ML SYR ONE ×2 (18:12→19:18)
[2020-07-24] MEDS ORDERED: ONDANSETRON 4 MG/2 ML VIAL ONE (18:12)
[2020-07-24] MEDS ORDERED: CEFTRIAXONE/SWI 1gm 1 GM/10 ML SYR ONE (18:12)
[2020-07-24 18:27] LABS: Absolute Lymphocytes (CBC) 1.1 K/uL (0.7-4.9); Basophils % 0.8 % (0-1.3); Lymphocytes % 19.9 % (15.3-44.8); MPV 9.1 fL (7.6-11.3); RBC Red Blood Cell Count 3.88 M/uL (3.86-4.86)
--- NOTE | 2020-07-24 18:32 | RAD REPORT ---
EXAM DESCRIPTION: CT - Head C Spine Cap Wo Con - 07/24/2020 5:58 pm TECHNIQUE: Computed axial tomography of the head and cervical spine was obtained. Coronal and sagitt al reconstruction was performed Computed axial tomography of the chest, abdomen and pelvis was obtained. Contrast was not requested. All CT scans are performed using dose optimization technique as appropriate and may include automated exposure control or mA/KV adjustment according to patient size. CLINICAL HISTORY: Head and neck injury with chest and abdominal pain status post fall COMPARISON: CT 2016 and 2019 FINDINGS: An intracranial bleed is not seen. The ventricles are normal in caliber. An extra-axial fluid collection is not noted. . Fluid within the sinuses/mastoids is not seen. A cervical fracture is not seen. No dislocation is noted. Spondylosis involves the spine. The evaluation of mediastinum, mariela, vessels, solid organs and bowel are limited secondary to the lac k of contrast administration. Ill-defined fluid measuring 3.5 x 2.5 centimeters is present within the anterior mediastinum. A small portion abuts the ascending aorta while a larger portion abuts the posterior aspect of the anterior chest wall. A pleural effusion is not seen. A lung contusion is not present. Mild left lower lobe bronchiectasis The liver,spleen, pancreas, adrenals,kidneys and bladder do not demonstrate a traumatic injury. . There is very small amount of ascites within the pelvis. Spondylosis involves lumbar spine resulting in spinal stenosis IMPRESSION: 1. No acute intracranial abnormality is seen. 2. A cervical fracture is not visualized. If the patient continues have symptoms to suggest intracran ial/spinal cord pathology MRI be recommended 3. Small amount of ill-defined fluid within the anterior mediastinum is nonspecific. If the patient h as clinical symptoms to suggest a potential ascending aorta injury then a CT angiogram of the thoraci c aorta would be recommended
[2020-07-24 18:35] LABS: Protime INR 1.06
--- NOTE | 2020-07-24 18:38 | RAD REPORT ---
EXAM DESCRIPTION: Dylan Single View07/24/2020 6:10 pm CLINICAL HISTORY: Chest pain COMPARISON: 2019 FINDINGS: The lungs appear clear of acute infiltrate. The heart is mildly enlarged. Postsurgical ch anges involve chest IMPRESSION: No acute abnormalities displayed
[2020-07-24 18:40] LABS: Urine Blood NEGATIVE (Negative); Urine Glucose NEGATIVE (Negative); Urine Protein NEGATIVE (Negative); Urine pH 5.5 (5.0-7.0)
[2020-07-24 18:51] LABS: Albumin 4.1 g/dL (3.4-5.0); Bilirubin Direct 0.1 mg/dL (0-0.2); Bilirubin Total 0.4 mg/dL (0.2-1.0); Magnesium 2.5 mg/dL (1.8-2.4); Potassium 5.1 mmol/L (3.5-5.1); Protein, Total 7.8 g/dL (6.4-8.2); Troponin (Emerg Dept Use Only) 0.02 ng/mL (0.0-0.045)
[2020-07-24] MEDS ORDERED: NA CHLORIDE 0.9% 1,000 ML ONE ×2 (18:57→23:28)
--- NOTE | 2020-07-24 19:04 | RAD REPORT ---
EXAM DESCRIPTION: RAD - Pelvis - 07/24/2020 6:43 pm CLINICAL HISTORY: Pelvic pain status post injury FINDINGS: No fracture or dislocation is seen. Bones are osteoporotic
--- NOTE | 2020-07-24 19:05 | RAD REPORT ---
EXAM DESCRIPTION: RAD - Hip Right 2 View - 07/24/2020 6:43 pm CLINICAL HISTORY: Right hip pain FINDINGS: No fracture or dislocation is seen. The bones are osteoporotic.
--- NOTE | 2020-07-24 19:31 | ER ---
Nurse's Notes [facility] Name: Yeison Ellis Age: 79 yrs Sex: Female : 1940 Arrival Date: 07/24/2020 Time: 17:15 Bed 25 Private MD: Diagnosis: Acute kidney failure-on chronic;Fall (on) (from) unspecified stairs and steps;Contusion of right hip;Pain in right hip;Abdominal tenderness-contusion;Urinary tract infection, site not specified Presentation: 07/24 17:15 Chief complaint: Patient states: Pain on R lower back pain and suprapubic pain. I had ca1 pain like this last year when I had a UTI EMS states: She fell a week ago and landed on her back. Now c/o R lower back pain. Pt ambulatory. Coronavirus screen: Client denies travel out of the [place] in the last 14 days. At this time, the client does not indicate any symptoms associated with coronavirus-19. Ebola Screen: Patient negative for fever greater than or equal to 101.5 degrees Fahrenheit, and additional compatible Ebola Virus Disease symptoms Patient denies exposure to infectious person. Patient denies travel to an Ebola-affected area in the 21 days before illness onset. No symptoms or risks identified at this time. Initial Sepsis Screen: Does the patient meet any 2 criteria? No. Patient's initial sepsis screen is negative. Does the patient have a suspected source of infection? No. Patient's initial sepsis screen is negative. Risk Assessment: Do you want to hurt yourself or someone else? Patient reports no desire to harm self or others. Onset of symptoms was July 24, 2020. 17:15 Method Of Arrival: EMS: [facility] ca1 17:15 Acuity: ALEXIS 3 ca1 Historical: - Allergies: 17:30 Darvocet-N 100; ca1 17:30 egg; ca1 17:30 EGG/POULTRY; ca1 17:30 Iodine; ca1 17:30 propoxyphene napsylate; ca1 17:30 Oxoznlq-Hdl-Ifr Reductase Inhibitor; ca1 - PMHx: 17:30 Arthritis; Back pain; Chronic pain; Hypertension; Kidney stones; Myocardial infarction; ca1 neuropathy; Rheumatoid Arthritis; - PSHx: 17:30 Cholecystectomy; Appendectomy; Tubal ligation; Heart stents; Hysterectomy; CABG; ca1 - Immunization history:: Adult Immunizations up to date. - Social history:: Smoking status: . - Family history:: not pertinent. Screenin:30 Abuse screen: Denies threats or abuse. Denies injuries from another. Nutritional ca1 screening: No deficits noted. Tuberculosis screening: No symptoms or risk factors identified. Fall Risk Fall in past 12 months (25 points). IV access (20 points). Total Strong Fall Scale indicates Low Risk Score (25-44 pts). Fall prevention measures have been instituted. Side Rails Up X 2 As available Patient and Family Educated on Fall Prevention Program and strategies. Assessment: 17:30 General: Appears in no apparent distress. comfortable, Behavior is calm, cooperative, ca1 appropriate for age. Pain: Complains of pain in back and suprapubic area Pain currently is 9 out of 10 on a pain scale. 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 Neuro: Level of Consciousness is awake, alert, obeys commands, Oriented to person, place, time, situation. Cardiovascular: Heart tones S1 S2 present Capillary refill < 3 seconds Patient's skin is warm and dry. Respiratory: Airway is patent Respiratory effort is even, unlabored, Respiratory pattern is regular, agonal Breath sounds are clear bilaterally. GI: Abdomen is flat, non-distended, Bowel sounds present X 4 quads. Abd is soft X 4 quads Abdomen is tender to palpation in suprapubic area. : No signs and/or symptoms were reported regarding the genitourinary system. EENT: No signs and/or symptoms were reported regarding the EENT system. Derm: Skin is intact, is healthy with good turgor, Skin is pink, warm \T\ dry. Musculoskeletal: Circulation, motion, and sensation intact. Capillary refill < 3 seconds. 18:30 Reassessment: Patient appears in no apparent distress at this time. Patient and/or ca1 family updated on plan of care and expected duration. Pain level reassessed. Patient is alert, oriented x 3, equal unlabored respirations, skin warm/dry/pink. 19:30 General: Appears in no apparent distress. comfortable, Behavior is calm, cooperative, rr5 appropriate for age. Neuro: Level of Consciousness is awake, alert, obeys commands, Oriented to person, place, time. Cardiovascular: Capillary refill < 3 seconds Patient's skin is warm and dry. Respiratory: Airway is patent Respiratory effort is even, unlabored, Respiratory pattern is regular, symmetrical. Derm: Skin is fragile, is thin, Skin temperature is warm. Musculoskeletal: Capillary refill < 3 seconds, Reports pain in back. Vital Signs: 17:15 BP 166 / 60; Pulse 66; Resp 18 S; Temp 98.6(TE); Pulse Ox 100% on R/A; Weight 72.12 kg ca1 (R); Height 5 ft. 2 in. (157.48 cm) (R); Pain 9/10; 18:30 BP 155 / 65; Pulse 61; Resp 18 S; Pulse Ox 100% on R/A; ca1 19:39 BP 105 / 73; Pulse 61; Resp 17; Pulse Ox 98% ; rr5 17:15 Body Mass Index 29.08 (72.12 kg, 157.48 cm) ca1 ED Course: 17:15 Patient arrived in ED. ca1 17:15 Carly Kathleen, RN is Primary Nurse. ca1 17:29 Triage completed. ca1 17:30 Arm band placed on right wrist. ca1 17:30 Patient has correct armband on for positive identification. Placed in gown. Bed in low ca1 position. Call light in reach. Side rails up X2. environmental monitoring specialist on. Pulse ox on. NIBP on. Warm blanket given. 17:32 Jim Delgado MD is Attending Physician. [facility] 17:58 CT Traumagram (Head C Spine CAP wo con) In Process Unspecified. EDMS 18:10 XRAY Chest (1 view) In Process Unspecified. EDMS 18:14 Inserted saline lock: 20 gauge in right antecubital area, using aseptic technique. ca1 Blood collected. 18:30 No provider procedures requiring assistance completed. Initial lab(s) drawn, by oh, ca1 sent to lab. Straight cath inserted, using sterile technique, 18 Fr. Specimen obtained. Returned clear yellow urine. Patient tolerated well. 18:34 Urine collected: straight cath specimen, cloudy, EKG done, by ED staff, reviewed by sigrid Delgado MD. 18:43 Pelvis XRAY In Process Unspecified. EDMS 18:43 Hip Right 2 View XRAY In Process Unspecified. EDMS 18:43 Urine Dipstick--Ancillary (enter results) Sent. [facility] 18:43 Basic Metabolic Panel Sent. [facility] 18:44 CBC with Diff Sent. [facility] 18:44 LFT's Sent. [facility] 18:44 Magnesium Sent. [facility] 18:44 NT PRO-BNP Sent. [facility] 19:28 Osman Soares MD is Hospitalizing Provider. lily 21:40 IV discontinued, intact, bleeding controlled, No redness/swelling at site. Pressure rr5 dressing applied, right AC removed. 21:46 Inserted saline lock: 20 gauge in left antecubital area, using aseptic technique. rr5 Patient admitted, IV remains in place. intact, No redness/swelling at site. Administered Medications: 18:16 Drug: Zofran (Ondansetron) 4 mg Route: IVP; Site: right antecubital; ca1 18:20 Drug: morphine 2 mg {Note: rass 0.} Route: IVP; Site: right antecubital; ca1 18:33 Drug: Rocephin - (cefTRIAXone) 1 grams Route: IVPB; Infused Over: 30 mins; Site: right ca1 antecubital; 18:50 Drug: NS 0.9% 1000 ml Route: IV; Rate: 125 ml/hr; Site: right antecubital; ca1 19:02 Drug: morphine 2 mg {Note: rass 0.} Route: IVP; Site: right antecubital; ca1 19:59 Drug: [place] (HYDROcodone-acetaminophen) (7.5 mg-325 mg) 1 tabs {Note: rass 0.} Route: rr5 PO; Outcome: 19:30 Decision to Hospitalize by Provider. [facility] 07/25 21:54 Patient left the ED. fu Signatures: Dispatcher [employer] EDJim Murry MD MD cha Martinez, Maria [facility] Alan Anaya, Juan J Whitt RN, RN RN rr5 Carly Kathleen RN RN ca1 Corrections: (The following items were deleted from the chart) 07/24 18:33 18:32 Inserted saline lock: ca1 ca1
--- NOTE | 2020-07-24 19:32 | EDPHYS ---
Physician Documentation [facility] Name: Yeison Ellis Age: 79 yrs Sex: Female : 1940 Arrival Date: 07/24/2020 Time: 17:15 Bed 25 Private MD: ED Physician Jim Delgado HPI: 07/24 18:24 This 79 yrs old Female presents to ER via EMS with complaints of Fall Injury. lily 18:24 Details of fall: The patient fell from an upright position, while walking. Onset: The lily symptoms/episode began/occurred 1 week(s) ago. Associated injuries: The patient sustained injury to the head, upper back injury, injury to the low back, groin, right femoral area, suprapubic area and right hip, decreased range of motion, painful injury, swelling. Severity of symptoms: At their worst the symptoms were moderate, in the emergency department the symptoms are unchanged. The patient has not experienced similar symptoms in the past. Historical: - Allergies: 17:30 Darvocet-N 100; ca1 17:30 egg; ca1 17:30 EGG/POULTRY; ca1 17:30 Iodine; ca1 17:30 propoxyphene napsylate; ca1 17:30 Gmyuqqs-Hbz-Pcs Reductase Inhibitor; ca1 - PMHx: 17:30 Arthritis; Back pain; Chronic pain; Hypertension; Kidney stones; Myocardial infarction; ca1 neuropathy; Rheumatoid Arthritis; - PSHx: 17:30 Cholecystectomy; Appendectomy; Tubal ligation; Heart stents; Hysterectomy; CABG; ca1 - Immunization history:: Adult Immunizations up to date. - Social history:: Smoking status: . - Family history:: not pertinent. ROS: 18:24 Constitutional: Negative for fever, chills, and weight loss, Eyes: Negative for injury, lily pain, redness, and discharge, ENT: Negative for injury, pain, and discharge, Neck: Negative for injury, pain, and swelling, Cardiovascular: Negative for chest pain, palpitations, and edema, Respiratory: Negative for shortness of breath, cough, wheezing, and pleuritic chest pain, : Negative for injury, bleeding, discharge, and swelling, Skin: Negative for injury, rash, and discoloration, Neuro: Negative for headache, weakness, numbness, tingling, and seizure, Psych: Negative for depression, anxiety, suicide ideation, homicidal ideation, and hallucinations, Allergy/Immunology: Negative for hives, rash, and allergies, Endocrine: Negative for neck swelling, polydipsia, polyuria, polyphagia, and marked weight changes, Hematologic/Lymphatic: Negative for swollen nodes, abnormal bleeding, and unusual bruising. 18:24 Abdomen/GI: Positive for abdominal pain, abdominal cramps. 18:24 Back: Positive for injury or acute deformity, decreased range of motion, pain at rest, pain with movement, of the lumbar area and right low back. 18:24 MS/extremity: Positive for decreased range of motion, pain, swelling, of the right femoral area and right hip. Exam: 18:24 Constitutional: This is a well developed, well nourished patient who is awake, alert, lily and in no acute distress. Head/Face: Normocephalic, atraumatic. Eyes: Pupils equal round and reactive to light, extra-ocular motions intact. Lids and lashes normal. Conjunctiva and sclera are non-icteric and not injected. Cornea within normal limits. Periorbital areas with no swelling, redness, or edema. ENT: Nares patent. No nasal discharge, no septal abnormalities noted. Tympanic membranes are normal and external auditory canals are clear. Oropharynx with no redness, swelling, or masses, exudates, or evidence of obstruction, uvula midline. Mucous membranes moist. Neck: Trachea midline, no thyromegaly or masses palpated, and no cervical lymphadenopathy. Supple, full range of motion without nuchal rigidity, or vertebral point tenderness. No Meningismus. Chest/axilla: Normal chest wall appearance and motion. Nontender with no deformity. No lesions are appreciated. Cardiovascular: Regular rate and rhythm with a normal S1 and S2. No gallops, murmurs, or rubs. Normal PMI, no JVD. No pulse deficits. Respiratory: Lungs have equal breath sounds bilaterally, clear to auscultation and percussion. No rales, rhonchi or wheezes noted. No increased work of breathing, no retractions or nasal flaring. Abdomen/GI: Soft, non-tender, with normal bowel sounds. No distension or tympany. No guarding or rebound. No evidence of tenderness throughout. Female : Normal external genitalia. Skin: Warm, dry with normal turgor. Normal color with no rashes, no lesions, and no evidence of cellulitis. Neuro: Awake and alert, GCS 15, oriented to person, place, time, and situation. Cranial nerves II-XII grossly intact. Motor strength 5/5 in all extremities. Sensory grossly intact. Cerebellar exam normal. Normal gait. Psych: Awake, alert, with orientation to person, place and time. Behavior, mood, and affect are within normal limits. 18:24 Back: pain, that is mild, that is moderate, of the lumbar area, sacrum and right low back, ROM is painful, with all movement, with flexion, with extension, normal spinal alignment noted, CVA tenderness, is absent, vertebral tenderness, is not appreciated, muscle spasm, is appreciated in the lumbar area, left low back, left mid back, right mid back and right low back. 18:35 ECG was reviewed by the Attending Physician. [facility] Vital Signs: 17:15 BP 166 / 60; Pulse 66; Resp 18 S; Temp 98.6(TE); Pulse Ox 100% on R/A; Weight 72.12 kg ca1 (R); Height 5 ft. 2 in. (157.48 cm) (R); Pain 9/10; 18:30 BP 155 / 65; Pulse 61; Resp 18 S; Pulse Ox 100% on R/A; ca1 19:39 BP 105 / 73; Pulse 61; Resp 17; Pulse Ox 98% ; rr5 17:15 Body Mass Index 29.08 (72.12 kg, 157.48 cm) ca1 MDM: 17:32 Patient medically screened. lily 18:28 Differential diagnosis: closed head injury, contusion, fracture, multiple trauma, lily sprain, strain. Data reviewed: vital signs, nurses notes, lab test result(s), EKG, radiologic studies, CT scan, plain films. 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 on room air is 100 %. Test interpretation: by ED physician or midlevel provider: ECG, plain radiologic studies. Counseling: I had a detailed discussion with the patient and/or guardian regarding: the historical points, exam findings, and any diagnostic results supporting the discharge/admit diagnosis, lab results, radiology results. 07/24 17:38 Order name: Basic Metabolic Panel [facility] 07/24 17:38 Order name: CBC with Diff [facility] 07/24 17:38 Order name: LFT's [facility] 07/24 17:38 Order name: Magnesium [facility] 07/24 17:38 Order name: NT PRO-BNP [facility] 07/24 17:38 Order name: PT-INR; Complete Time: 19:02 [facility] 07/24 17:38 Order name: Troponin (emerg Dept Use Only); Complete Time: 19:02 [facility] 07/24 17:38 Order name: Urine Culture [facility] 07/24 17:39 Order name: Basic Metabolic Panel; Complete Time: 19:02 EDIL 07/24 17:39 Order name: CBC with Automated Diff; Complete Time: 19:02 [facility]IL 07/24 17:39 Order name: Liver (Hepatic) Function; Complete Time: 19:02 [facility]IL 07/24 17:39 Order name: Magnesium; Complete Time: 19:02 [facility]IL 07/24 17:39 Order name: NT PRO-BNP; Complete Time: 19:02 [facility] 07/24 17:38 Order name: XRAY Chest (1 view); Complete Time: 19:02 [facility] 07/24 17:38 Order name: CT Traumagram (Head C Spine CAP wo con); Complete Time: 19:02 [facility] 07/24 18:21 Order name: Pelvis XRAY; Complete Time: 19:10 [facility] 07/24 18:21 Order name: Hip Right 2 View XRAY; Complete Time: 19:10 [facility] 07/24 18:34 Order name: Urine Dipstick--Ancillary (enter results) 07/24 18:35 Order name: Urine Dipstick-Ancillary; Complete Time: 19:02 [facility] 07/24 20:40 Order name: SARS-COV-2 RT PCR; Complete Time: 21:21 [facility]IL 07/25 05:27 Order name: CBC with Automated Diff; Complete Time: 16:46 EDMS 07/25 05:49 Order name: Comprehensive Metabolic Panel; Complete Time: 16:46 EDMS 07/25 05:49 Order name: T4 Free; Complete Time: 16:46 EDMS 07/25 05:49 Order name: Magnesium; Complete Time: 16:46 EDMS 07/25 05:49 Order name: Thyroid Stimulating Hormone; Complete Time: 16:46 EDMS 07/25 16:42 Order name: MRI; Complete Time: 16:46 EDIL 04/19 17:19 Order name: CBC with Automated Diff [facility] 07/25 19:47 Order name: EDIL 07/24 17:38 Order name: EKG; Complete Time: 17:40 [facility] 07/24 17:38 Order name: Cardiac monitoring; Complete Time: 18:31 [facility] 07/24 17:38 Order name: EKG - Nurse/Tech; Complete Time: 18:31 [facility] 07/24 17:38 Order name: IV Saline Lock; Complete Time: 18:31 [facility] 07/24 17:38 Order name: Labs collected and sent; Complete Time: 18:31 [facility] 07/24 17:38 Order name: O2 Per Protocol; Complete Time: 18:31 [facility] 07/24 17:38 Order name: O2 Sat Monitoring; Complete Time: 18:31 [facility] 07/24 17:38 Order name: Urine Dipstick-Ancillary (obtain specimen); Complete Time: 18:02 [facility] EC:35 Rate is 65 beats/min. Rhythm is regular. QRS [place] is Normal. UT interval is normal. QRS lily interval is normal. QT interval is normal. No Q waves. T waves are Normal. No ST changes noted. Clinical impression: NSR w/ Non-specific ST/T Changes and No evidence of ischemia. Interpreted by me. Reviewed by me. Administered Medications: 18:16 Drug: Zofran (Ondansetron) 4 mg Route: IVP; Site: right antecubital; ca1 18:20 Drug: morphine 2 mg {Note: rass 0.} Route: IVP; Site: right antecubital; ca1 18:33 Drug: Rocephin - (cefTRIAXone) 1 grams Route: IVPB; Infused Over: 30 mins; Site: right ca1 antecubital; 18:50 Drug: NS 0.9% 1000 ml Route: IV; Rate: 125 ml/hr; Site: right antecubital; ca1 19:02 Drug: morphine 2 mg {Note: rass 0.} Route: IVP; Site: right antecubital; ca1 19:59 Drug: [place] (HYDROcodone-acetaminophen) (7.5 mg-325 mg) 1 tabs {Note: rass 0.} Route: rr5 PO; Disposition: 07/24/20 19:30 Hospitalization ordered by Osman Soares for Observation. Preliminary diagnosis are Acute kidney failure - on chronic, Fall (on) (from) unspecified stairs and steps, Contusion of right hip, Pain in right hip, Abdominal tenderness - contusion, Urinary tract infection, site not specified. - Bed requested for Telemetry/MedSurg (observation). - Status is Observation. fu - Condition is Stable. - Problem is new. - Symptoms have improved. Signatures: Dispatcher [employer] EDIL Jim Delgado MD MD cha Attema, Lee, APPLE PICKER-C APPLE PICKER-Cla1 Padmaja Munoz RN RN tl1 Alan Anaya RN RN fu Orlando Mccormack mw2 Juan J Coyle, RN RN rr5 Carly Kathleen RN RN ca1 Corrections: (The following items were deleted from the chart) 19:51 17:39 CORONAVIRUS+MR.LAB.BRZ ordered. [facility] EDIL 21:34 19:30 Hospitalization Ordered by Osman Soares MD for Observation. Preliminary mw2 diagnosis is Acute kidney failure - on chronic; Fall (on) (from) unspecified stairs and steps; Contusion of right hip; Pain in right hip; Abdominal tenderness - contusion; Urinary tract infection, site not specified. Bed requested for Telemetry/MedSurg (observation). Status is Observation. Condition is Stable. Problem is new. Symptoms have improved. lily 07/25 19:57 07/24 21:34 07/24/2020 19:30 Hospitalization Ordered by Osman Soares MD for tl1 Observation. Preliminary diagnosis is Acute kidney failure - on chronic; Fall (on) (from) unspecified stairs and steps; Contusion of right hip; Pain in right hip; Abdominal tenderness - contusion; Urinary tract infection, site not specified. Bed requested for [facility] ER HOLD. Status is Observation. Condition is Stable. Problem is new. Symptoms have improved. mw2 07/25 21:54 19:57 07/24/2020 19:30 Hospitalization Ordered by Osman Soares MD for Observation. fu Preliminary diagnosis is Acute kidney failure - on chronic; Fall (on) (from) unspecified stairs and steps; Contusion of right hip; Pain in right hip; Abdominal tenderness - contusion; Urinary tract infection, site not specified. Bed requested for Telemetry/MedSurg (observation). Status is Observation. Condition is Stable. Problem is new. Symptoms have improved. tl1
[2020-07-24] MEDS ORDERED: HYDROCODONE/APAP 7.5/325 MG TAB ONE (20:12)
--- NOTE | 2020-07-24 21:22 | P.HP ---
Certification for Inpatient Patient admitted to: Observation With expected LOS: <2 Midnights Patient will require the following post-hospital care: None Practitioner: I am a practitioner with admitting privileges, knowledge of patient current condition, hospital course, and medical plan of care. Services: Services provided to patient in accordance with Admission requirements found in Title 42 Section 412.3 of the Code of Federal Regulations Patient History Date of Service: 07/24/20 Reason for admission: ANDRZEJ, UTI History of Present Illness: 79-year-old female with history of hypertension, CAD status post CABG, rheumatoid arthritis presents emergency department for right hip pain. Patient reports that she had a mechanical fall approximately 1 week prior were she landed on her right side and lower back, has been complaining about lower back and right hip pain since then with difficulty with movement/ambulation. Patient was evaluated in the emergency department, labs significant for creatinine 1.95 GFR 25 BUN 34, patient baseline GFR around 40. Patient also complaining of some suprapubic pain, urine is nitrite positive, pelvis x-ray, hip x-ray negative for fracture or dislocation, CT head C-spine/chest abdomen pelvis without contrast demonstrates a small amount of the ill-defined fluid within the anterior mediastinum which is nonspecific, a small portion of the fluid abuts the ascending aorta while a larger portion abuts the posterior aspect of the anterior chest wall. Patient not complaining of any chest/back pain, fall was approximately 1 week prior in did not involve trauma to the chest or back, doubt this is related to trauma. ED provider wishes to admit patient under observation for ANDRZEJ, UTI, physical therapy evaluation Allergies iodine Allergy (Verified 09/11/19 02:26) Itching/Hives/Rash propoxyphene napsylate [From Darvocet-N] Adverse Reaction (Intermediate, Verified 09/11/19 02:26) Nausea/Vomiting cauliflower Adverse Reaction (Verified 09/11/19 02:26) Nausea/Vomiting egg Adverse Reaction (Verified 09/11/19 02:26) Nausea/Vomiting Gmsxxnf-Xil-Ejl Reductase Inhibitor Adverse Reaction (Verified 09/11/19 02:26) Nausea/Vomiting Home Medications: Aspirin [Pura Chewable Aspirin] 81 mg PO DAILY 09/16/13 Clopidogrel Bisulfate [Plavix*] 75 mg PO DAILY #0 tablet 09/19/13 Hydrocodone Bit/Acetaminophen [Hydrocodon-Acetaminophn 10-500] 1 tab PO Q4H PRN #0 tablet 09/19/13 Atorvastatin Calcium 20 mg PO BEDTIME 10/12/19 Gabapentin 100 mg PO BEDTIME 10/12/19 Lisinopril [Zestril] 1 tab PO DAILY 10/12/19 Metformin HCl 1 tab PO DAILY 10/12/19 Metoprolol Tartrate 25 mg PO BID 10/12/19 Pantoprazole [Protonix Tab*] 1 tab PO DAILY 10/12/19 Tamsulosin HCl 1 cap PO BEDTIME 10/12/19 Prednisone [Sterapred Ds] 10 mg PO BID #14 tab.ds.pk 10/14/19 Fluconazole [Diflucan] 100 mg PO DAILY #7 tablet 10/16/19 Lidocaine 4% Patch [Lidoderm 5% Patch*] 1 patch TOP DAILY #30 patch 10/16/19 - Past Medical/Surgical History Diabetic: No -: Hypertension -: Clots in the legs -: CAD -: CHF -: History of [place] -: Arthritis -: Spider bites in legs -: 3-pinged nerves at the back/sciatic nerve -: Neuropathy -: Chronic back pain -: Cardiac Stents CABG -: Endoscopy -: Tubal Ligation -: Hysterectomy -: L knee repair -: galbladder removed -: hemorrhoidectomy -: clots in legs removed - Family History Brother -: Heart disease, Hypertension Father -: Heart disease, Hypertension - Social History Smoking Status: Never smoker Alcohol use: No CD- Drugs: No Caffeine use: Yes Place of Residence: Home Review of Systems 10-point ROS is otherwise unremarkable General: Weakness, Malaise Gastrointestinal: Other (Suprapubic pain) Musculoskeletal: Other (Right hip pain) Physical Examination - Physical Exam General: Alert, In no apparent distress HEENT: Atraumatic, PERRLA, Mucous membr. moist/pink Neck: Supple, 2+ carotid pulse no bruit, No LAD Respiratory: Clear to auscultation bilaterally, Normal air movement Cardiovascular: Regular rate/rhythm, Normal S1 S2 Gastrointestinal: Normal bowel sounds, No tenderness Musculoskeletal: No tenderness Integumentary: No rashes Neurological: Normal speech, Normal strength at 5/5 x4 extr, Normal tone, Normal affect - Studies Laboratory Data (last 24 hrs) 07/24/20 18:12: PT 12.2, INR 1.06 04/18/21 18:12: WBC 5.40, Hgb 11.6 L, Hct 35.0 L, Plt Count 175 07/24/20 18:12: Sodium 138, Potassium 5.1, BUN 34 H, Creatinine 1.95 H, Glucose 132 H, Magnesium 2.5 H, Total Bilirubin 0.4, AST 18, ALT 36, Alkaline Phosphatase 12 L Assessment and Plan - Plan Assessment ANDRZEJ superimposed on CKD 3 Small amount of ill-defined fluid within the anterior mediastinum UTI Right hip pain/difficulty with ambulation CAD status post CABG Hypertension Plan ANDRZEJ superimposed on CKD 3: Continue with IV fluids overnight, recheck chemistry when labs, consult nephrology as necessary. DVT prophylaxis heparin 5000 subcutaneous twice daily. Small amount of ill-defined fluid within the anterior mediastinum : Patient allergic to iodine and with CKD. MRI without contrast ordered to evaluate, patient without pacemaker/defibrillator. UTI: Continue IV Rocephin Right hip pain/difficulty with ambulation: No fracture or dislocation noted, physical therapy ordered for evaluation. Patient may benefit from physical therapy at home. At discharge, has home health in place already. CAD status post CABG: Obtain and continue home medications, monitor on telemetry. Hypertension: Continue home meds adjust as necessary Discharge Plan: Home Plan to discharge in: 24 Hours - Advance Directives Does patient have a Living Will: No Does patient have a Durable POA for Healthcare: No - Code Status/Comfort Care Code Status Assessed: Yes (Full code) Critical Care: No Time Spent Managing Pts Care (In Minutes): 55
[2020-07-24] MEDS ORDERED: ONDANSETRON 4 MG/2 ML VIAL IV PRN (22:36)
[2020-07-24] MEDS: NA CHLORIDE 0.9% 1,000 ML IV SCH (22:36)
[2020-07-24] MEDS: HEPARIN 5000 UNIT/ML 1 ML VIAL SQ SCH (23:00)
[2020-07-24] MEDS ORDERED: HEPARIN 5000 UNIT/ML 1 ML VIAL ONE (23:27)
[2020-07-25] MEDS: HYDROCODONE/APAP 10/325 TAB PO PRN ×4 (00:18→22:36)
[2020-07-25] MEDS ORDERED: HYDROCODONE/APAP 10/325 TAB ONE ×3 (00:33→18:22)
[2020-07-25 00:43] VITALS: BMI 29.0
[2020-07-25] MEDS: NA CHLORIDE 0.9% 1,000 ML IV SCH ×3 (04:30→22:37)
[2020-07-25 05:11] LABS: Absolute Lymphocytes (CBC) 1.7 K/uL (0.7-4.9); Basophils % 1.3 % (0-1.3); Hematocrit 28.5 % (36.0-45.0); Lymphocytes % 38.7 % (15.3-44.8); MPV 8.9 fL (7.6-11.3); RBC Red Blood Cell Count 3.18 M/uL (3.86-4.86)
[2020-07-25 05:35] LABS: ALT/SGPT 26 U/L (12-78); AST/SGOT 12 U/L (15-37); Albumin 3.1 g/dL (3.4-5.0); BUN Blood Urea Nitrogen 33 mg/dL (7-18); Bicarbonate 23 mmol/L (21-32); Bilirubin Total 0.3 mg/dL (0.2-1.0); Glucose Level 77 mg/dL (74-106); Magnesium 2.3 mg/dL (1.8-2.4); Potassium 4.8 mmol/L (3.5-5.1); Sodium Level 141 mmol/L (136-145); Thyroid Stimulating Hormone 0.228 uIU/mL (0.360-3.740)
[2020-07-25 05:48] LABS: Alkaline Phosphatase < 10 U/L (45-117)
--- NOTE | 2020-07-25 07:53 | EKG ---
Test Date: 2020-07-24 Test Time: 18:17:50 Special Education Inclusion Teacher: CEFERINO MEASUREMENT RESULTS: Intervals: Rate: 65 ND: 236 QRSD: 96 QT: 432 QTc: 449 Stover: P: 68 ND: 236 QRS: 57 T: 122 INTERPRETIVE STATEMENTS: Sinus rhythm with marked sinus arrhythmia with 1st degree AV block ST & T wave abnormality, consider lateral ischemia Abnormal ECG Compared to ECG 10/12/2019 17:32:35 Sinus tachycardia no longer present ST (T wave) deviation still present Possible ischemia still present Electronically Signed On 07-25-20 07:51:57 CDT by Rg Frey
[2020-07-25] MEDS: METFORMIN HCL 500 MG TAB PO SCH ×2 (08:00→17:00)
[2020-07-25] MEDS ORDERED: NA CHLORIDE 0.9% 1,000 ML ONE (09:00)
[2020-07-25] MEDS: HEPARIN 5000 UNIT/ML 1 ML VIAL SQ SCH ×2 (09:00→22:29)
[2020-07-25] MEDS ORDERED: CEFTRIAXONE/SWI 1gm 1 GM/10 ML SYR ONE (09:00)
[2020-07-25] MEDS ORDERED: CEFTRIAXONE 1 GM/NS 50 ML 1 GM/50 ML BAG IV SCH (09:00)
[2020-07-25] MEDS ORDERED: HEPARIN 5000 UNIT/ML 1 ML VIAL ONE (09:01)
[2020-07-25] MEDS: CEFTRIAXONE/SWI 1gm 1 GM/10 ML SYR IV SCH (09:33)
--- NOTE | 2020-07-25 16:41 | RAD REPORT ---
EXAM DESCRIPTION: MRI - Chest Wo Cont - 07/25/2020 4:28 pm CLINICAL HISTORY: Chest abnormality seen on the recent CT. COMPARISON: July 24, 2020 cat scan TECHNIQUE: Axial, sagittal, and coronal magnetic images of the chest obtained. IV contrast was not g iven. FINDINGS: The ill-defined fluid collection within the anterior mediastinum appears slightly diminish ed in size. The majority of the fluid collection abuts posterior aspect of the chest wall. A sliver o f fluid abuts the ascending aorta. Evaluation of thoracic aorta is limited secondary to the lack of IV contrast administration. No aortic aneurysm not noted. IMPRESSION: Slight decrease in the size of ill-defined fluid within the anterior mediastinum since t he prior CAT scan. Evaluation of the thoracic aorta is limited secondary to lack of IV contrast administration. No gross abnormality visualized
[2020-07-25 17:06] LABS: Absolute Lymphocytes (CBC) 1.4 K/uL (0.7-4.9); Basophils % 1.1 % (0-1.3); Hematocrit 31.6 % (36.0-45.0); Lymphocytes % 28.4 % (15.3-44.8)
--- NOTE | 2020-07-25 19:45 | RAD REPORT ---
EXAM DESCRIPTION: USExtrem Venous W Compress Bil07/25/2020 7:36 pm CLINICAL HISTORY: Leg pain COMPARISON: none FINDINGS: The common femoral, superficial femoral, popliteal and posterior tibial veins bilaterally are compressible and demonstrate augmentation. Doppler demonstrates good flow. 4.3 centimeter left Carter's cyst IMPRESSION: No evidence of deep venous thrombosis involving either lower extremity. 4.3 centimeter left Carter's cyst
[2020-07-25] MEDS: HYDROCORTISONE SUC 100 MG INJ IV SCH (22:27)
[2020-07-25] MEDS: METOPROLOL TAR 25 MG TAB PO SCH (22:28)
[2020-07-25] MEDS: FAMOTIDINE 20 MG TAB PO SCH (22:28)
[2020-07-25] MEDS: ATORVASTATIN 20 MG TAB PO SCH (22:28)
[2020-07-25] MEDS: GABAPENTIN 100 MG CAP PO SCH (22:28)
[2020-07-26] MEDS: NA CHLORIDE 0.9% 1,000 ML IV SCH (04:36)
[2020-07-26 06:11] LABS: RBC Red Blood Cell Count 3.35 M/uL (3.86-4.86)
--- NOTE | 2020-07-26 07:14 | P.PN ---
Subjective Date of Service: 07/25/20 Patient is feeling better. However, MRI and does not really elaborate on where the fluid came from as it was in a contrast study. She only has allergies to iodine which results and a a you slight rash. I will go ahead and premedicate her and hopefully we can get this done shortly. She has had multiple imaging studies; will await for repeat studies and if this is okay then possible discharge Review of Systems 10-point ROS is otherwise unremarkable Physical Examination - Vital Signs Temperature: 97.8 F Blood Pressure: 155/57 Pulse: 62 Respirations: 16 Pulse Ox (%): 96 - Physical Exam General: Alert, In no apparent distress, Oriented x3 Respiratory: Clear to auscultation bilaterally, Normal air movement Cardiovascular: Regular rate/rhythm, Normal S1 S2, No murmurs Gastrointestinal: Normal bowel sounds, Soft and benign, Non-distended, No tenderness Musculoskeletal: No clubbing, No swelling, No tenderness Neurological: Sensation intact, Cranial nerves 3-12 intact - Studies Medications List Reviewed: Yes Assessment & Plan - Problems (Diagnosis) (1) Status post fall Current Visit: Yes Status: Acute (2) Chest pain Onset Date: 03/08/17 Current Visit: No Status: Acute Qualifiers: (3) Congestive heart failure (CHF) Onset Date: 03/08/17 Current Visit: No Status: Acute Qualifiers: (4) Diabetes Current Visit: No Status: Acute (5) Neuropathy Current Visit: No Status: Acute (6) PAD (peripheral artery disease) Current Visit: No Status: Acute (7) Weight loss Current Visit: No Status: Acute (8) Coronary artery disease Onset Date: 03/08/17 Current Visit: No Status: Chronic Qualifiers: - Plan Plan: 1. CT angio with dissection 2. Medication to premedicate 3. Pain control 4. Steroids 5. Continue with anti-platelet therapy and statin therapy 6. Echocardiogram and carotid Doppler 7. GI and DVT prophylaxis Discharge Plan: Home Plan to discharge in: Greater than 2 days - Advance Directives Does patient have a Living Will: No Does patient have a Durable POA for Healthcare: No - Code Status/Comfort Care Code Status Assessed: Yes Code Status: Full Code Critical Care: No Time Spent Managing PTS Care (In Minutes): 35
[2020-07-26 07:15] LABS: Folic Acid, (Folate) 16.8 ng/mL (3.1-17.5); Magnesium 2.3 mg/dL (1.8-2.4); Phosphorus 3.6 mg/dL (2.5-4.9); Thyroid Stimulating Hormone 0.167 uIU/mL (0.360-3.740)
[2020-07-26 07:37] LABS: Potassium 5.4 mmol/L (3.5-5.1)
[2020-07-26 07:53] LABS: Absolute Lymphocytes (CBC) 0.9 K/uL (0.7-4.9); Basophils % 0.8 % (0-1.3); Hematocrit 30.4 % (36.0-45.0); Lymphocytes % 23.2 % (15.3-44.8); MPV 9.4 fL (7.6-11.3); RBC Red Blood Cell Count 3.37 M/uL (3.86-4.86)
[2020-07-26] MEDS: LIDOCAINE 4% PATCH TOP SCH (08:05)
[2020-07-26] MEDS: ASPIRIN 81 MG CHEWABLE TABLET PO SCH (08:07)
[2020-07-26] MEDS: GABAPENTIN 100 MG CAP PO SCH ×3 (08:07→21:20)
[2020-07-26] MEDS: FAMOTIDINE 20 MG TAB PO SCH (08:08)
[2020-07-26] MEDS: METFORMIN HCL 500 MG TAB PO SCH (08:08)
[2020-07-26] MEDS: HYDROCODONE/APAP 10/325 TAB PO PRN (08:09)
[2020-07-26] MEDS: CLOPIDOGREL 75 MG TABLET PO SCH (08:10)
[2020-07-26] MEDS: METOPROLOL TAR 25 MG TAB PO SCH ×2 (08:10→21:21)
[2020-07-26] MEDS: PANTOPRAZOLE 40MG TABLET PO SCH (08:10)
[2020-07-26] MEDS: HEPARIN 5000 UNIT/ML 1 ML VIAL SQ SCH ×2 (08:11→21:21)
[2020-07-26] MEDS: CEFTRIAXONE/SWI 1gm 1 GM/10 ML SYR IV SCH (08:11)
[2020-07-26] MEDS: HYDROCORTISONE SUC 100 MG INJ IV SCH ×2 (08:11→21:21)
[2020-07-26] MEDS ORDERED: lisinopriL 5 MG TAB PO SCH (09:00)
[2020-07-26] MEDS ORDERED: HOME MED 1 EA UNK (Lisinopril [Zestril] 2.5 MG Tablet) PO SCH (09:00)
[2020-07-26] MEDS ORDERED: D50W 25 GM/50 ML SYRINGE IV ONE (11:37)
[2020-07-26] MEDS ORDERED: INSULIN -REGULAR HUMAN 50 UNIT/0.5 ML ML IV ONE (11:37)
[2020-07-26] MEDS ORDERED: GLUCAGON 1 MG/VIAL IM PRN (11:37)
[2020-07-26] MEDS ORDERED: D50W 25 GM/50 ML SYRINGE IV PRN (11:37)
--- NOTE | 2020-07-26 12:32 | ECHO ---
HEIGHT: 5 ft 2 in WEIGHT: 159 lb 0 oz DATE OF STUDY: 07/26/[address]: Osman Soares MD 2-DIMENSIONAL: YES M.MODE: YES DOPPLER: YES COLOR FLOW: YES TDS: PORTABLE: DEFINITY: BUBBLE STUDY: DIAGNOSIS: DYSPNEA, STATUS POST CORNARY ARTERY BYPASS GRAFT, CONGESTIVE HEART FAILURE, SYNOPE CARDIAC HISTORY: CATHERIZATION: YES SURGERY: YES PROSTHETIC VALVE: NO PACEMAKER: NO MEASUREMENTS (cm) DIASTOLIC (NORMALS) SYSTOLIC (NORMALS) IVSd 0.9 (0.6-1.2) LA Diam 3.0 (1.9-4.0) LVEF 77% LVIDd 4.8 (3.5-5.7) LVIDs 2.6 (2.0-3.5) %FS 46% LVPWd 1.0 (0.6-1.2) Ao Diam 2.5 (2.0-3.7) 2 DIMENSIONAL ASSESSMENT: RIGHT ATRIUM: NORMAL LEFT ATRIUM: RIGHT VENTRICLE: NORMAL LEFT VENTRICLE: TRICUSPID VALVE: NORMAL MITRAL VALVE: PULMONIC VALVE: NORMAL AORTIC VALVE: PERICARDIAL EFFUSION: NONE AORTIC ROOT: LEFT VENTRICULAR WALL MOTION: NORMAL DOPPLER/COLOR FLOW: MILD TRICUSPID REGURGITATION COMMENTS: NORMAL 2-DIMENSIONAL ECHOCARDIOGRAM. MILD TRICUSPID REGURGITATION. NORMAL RIGHT VENTRICULAR SYSTOLIC PRESSURE. NO WALL MOTION ABNORMALITY. NO EFFUSION. TECHNOLOGIST: YESI OLSEN
--- NOTE | 2020-07-26 12:42 | RAD REPORT ---
EXAM DESCRIPTION: CT - Angio Aorta For Dissection - 07/26/2020 11:56 am CLINICAL HISTORY: trauma, chest pain, abnormal anterior mediastinal collection COMPARISON: MRI chest July 25, CT trauma study July 24 TECHNIQUE: Dynamically enhanced 3 mm thick images of the chest, abdomen, and upper pelvis were obtai chu during administration of approximately 150mL Isovue 370 IV contrast. Sagittal and coronal reconst ruction images were generated using MIP and reviewed. Exam utilizes a protocol to evaluate entire cou rse of the aorta. Patient was pre-medicated due to allergy history All CT scans are performed using dose optimization technique as appropriate and may include automated exposure control or mA/KV adjustment according to patient size. FINDINGS: Aorta is normal in diameter with no dissection or other acute aortic findings. Reconstruct ion images show no significant findings. No evidence for traumatic injury to the aorta and no evidenc e anterior mediastinal fluid is related to the aorta. Main pulmonary artery is unremarkable. Peripheral pulmonary arteries unremarkable as well. No cardiomegaly, pericardial thickening or perica rdial effusion. No mass or infiltrate in the lung parenchyma. Scarring and atelectasis changes are present. Very mini mal right-sided pleural effusion. No pleural thickening or pleural based mass. No abnormal lymphadenopathy in the mediastinum. Sternotomy wires are in place. Again noted is the sma ll a amorphous low-density collection in the anterior mediastinum just deep to the sternum. No chest wall mass or abnormal axillary lymphadenopathy. Celiac and superior mesenteric arteries show no significant findings. Single right renal artery with 2 left renal arteries. Prominent calcifications are seen in the origin of the right renal artery. Bot h kidneys show cortical thinning and some heterogeneous attenuation suggesting vascular compromise. N o areas of infarcted parenchyma seen. No suspicious renal mass or hydronephrosis. The liver, spleen and pancreas show no acute traumatic findings. Cholecystectomy clips are present. N o biliary tree dilatation. No mass or abnormal lymphadenopathy. No free air, free fluid or inflammat ory stranding. No urinary bladder abnormality. Moderate stool volume is present throughout the colon . There is prominent diverticulosis within a tortuous and redundant sigmoid colon. An active or acute GI process is not identified. Prominent bony degenerative changes are present. No pathologic bone process. IMPRESSION: Negative CT scan of the aorta for acute findings. Patient has minimal for age atheroscle rotic change in the bañuelos of the aorta. No findings to support aortic or pulmonary artery traumatic injury. Small hypoechoic collection remai ns in the anterior mediastinum deep to the sternum. Minimal right pleural fluid with scattered scarring and atelectasis change. No mass, acute pneumonia or pulmonary contusion. Suspected right-sided renal artery stenosis and possible stenosis on the left. Both kidneys show parth ical thinning that could indicate vascular compromise. No mass or focal infarction. No other significant findings on chest, abdomen and upper pelvis examination.
[2020-07-26] MEDS ORDERED: SODIUM BICARB 50 MEQ/50ML VIAL IV ONE (13:00)
[2020-07-26] MEDS: D5W 1,000 ML with NA BICARB 8.4% 50 MEQ IV SCH ×2 (13:06)
[2020-07-26] MEDS ORDERED: SOD POLYSTYREN SUL 15 GM/60 ML UCUP PO ONE (13:30)
[2020-07-26] MEDS ORDERED: CYANOCOBALAMIN 1000MCG/ML INJ IM ONE (14:48)
[2020-07-26 14:49] LABS: Urine Blood Negative (Negative); Urine Glucose Negative (Negative); Urine Protein Negative (Negative); Urine pH 5.5 (5.0-7.0)
[2020-07-26 16:34] LABS: Potassium 4.8 mmol/L (3.5-5.1)
[2020-07-26] MEDS: ATORVASTATIN 20 MG TAB PO SCH (21:20)
[2020-07-26 21:49] VITALS: O2SAT 98
[2020-07-27] MEDS: HYDROCODONE/APAP 10/325 TAB PO PRN ×2 (00:36→09:05)
[2020-07-27] MEDS: D5W 1,000 ML with NA BICARB 8.4% 50 MEQ IV SCH ×2 (00:37)
[2020-07-27 06:16] LABS: Absolute Lymphocytes (CBC) 0.8 K/uL (0.7-4.9); Basophils % 0.6 % (0-1.3); Hematocrit 31.1 % (36.0-45.0); MPV 9.3 fL (7.6-11.3); RBC Red Blood Cell Count 3.44 M/uL (3.86-4.86)
[2020-07-27 06:35] LABS: ALT/SGPT 25 U/L (12-78); AST/SGOT 11 U/L (15-37); Albumin 3.5 g/dL (3.4-5.0); BUN Blood Urea Nitrogen 28 mg/dL (7-18); Bicarbonate 25 mmol/L (21-32); Bilirubin Total 0.5 mg/dL (0.2-1.0); Glucose Level 261 mg/dL (74-106); Magnesium 2.2 mg/dL (1.8-2.4); NT PRO-BNP 3902 pg/mL (<450); Protein, Total 6.8 g/dL (6.4-8.2); Sodium Level 139 mmol/L (136-145)
[2020-07-27 06:42] LABS: Alkaline Phosphatase < 10 U/L (45-117)
[2020-07-27] MEDS: CEFTRIAXONE/SWI 1gm 1 GM/10 ML SYR IV SCH (09:06)
[2020-07-27] MEDS: ASPIRIN 81 MG CHEWABLE TABLET PO SCH (09:06)
[2020-07-27] MEDS: LIDOCAINE 4% PATCH TOP SCH (09:06)
[2020-07-27] MEDS: CLOPIDOGREL 75 MG TABLET PO SCH (09:07)
[2020-07-27] MEDS: FAMOTIDINE 20 MG TAB PO SCH (09:07)
[2020-07-27] MEDS: PANTOPRAZOLE 40MG TABLET PO SCH (09:07)
[2020-07-27] MEDS: METOPROLOL TAR 25 MG TAB PO SCH (09:07)
[2020-07-27] MEDS: HEPARIN 5000 UNIT/ML 1 ML VIAL SQ SCH (09:09)
[2020-07-27] MEDS: GABAPENTIN 100 MG CAP PO SCH (09:09)
[2020-07-27] MEDS: HYDROCORTISONE SUC 100 MG INJ IV SCH (09:09)
[2020-08-02] MEDS ORDERED: CYANOCOBALAMIN 1000MCG/ML INJ IM SCH (09:00)
[2020-08-15 03:28] VITALS: BP 155/57; TEMP 97.8
--- NOTE | 2020-08-15 03:28 | P.DS ---
Discharge Date: 07/27/20 Disposition: DC HOME/HOME HEALTH CARE Discharge Condition: GOOD Reason for Admission: ANDRZEJ, UTI - Problems (1) Status post fall Status: Acute (2) Chest pain Onset Date: 03/08/17 Status: Acute Qualifiers: (3) Congestive heart failure (CHF) Onset Date: 03/08/17 Status: Acute Qualifiers: (4) Diabetes Status: Acute (5) Neuropathy Status: Acute (6) PAD (peripheral artery disease) Status: Acute (7) Weight loss Status: Acute (8) Coronary artery disease Onset Date: 03/08/17 Status: Chronic Qualifiers: Brief History of Present Illness: Patient is [id number] female with history of hypertension, CAD status post CABG, rheumatoid arthritis presents emergency department for right hip pain. Patient reports that she had a mechanical fall approximately 1 week prior were she landed on her right side and lower back, has been complaining about lower back and right hip pain since then with difficulty with movement/ambulation. Patient was evaluated in the emergency department, labs significant for creatinine 1.95 GFR 25 BUN 34, patient baseline GFR around 40. Patient also complaining of some suprapubic pain, urine is nitrite positive, pelvis x-ray, hip x-ray negative for fracture or dislocation, CT head C- spine/chest abdomen pelvis without contrast demonstrates a small amount of the ill-defined fluid within the anterior mediastinum which is nonspecific, a small portion of the fluid abuts the ascending aorta while a larger portion abuts the posterior aspect of the anterior chest wall. Patient not complaining of any chest/back pain, fall was approximately 1 week prior in did not involve trauma to the chest or back, doubt this is related to trauma. ED provider wishes to admit patient under observation for ANDRZEJ, UTI, physical therapy evaluation Hospital Course: The biggest concern was that patient may have had a bleed related to the accident that he with the [place]. We did multiple imaging studies including CT angio and CT aortic dissection. The was no signs of active bleeding. Hemoglobin remained stable. Patient is clinically doing well and is stable for discharge home with outpatient follow-up. Patient will also need Nephrology follow-up as well. Patient with some chronic kidney disease and this needs to be monitored. Vital Signs/Physical Exam: Temp Pulse Resp BP Pulse Ox 98.4 F 65 20 156/68 H 99 07/27/20 08:00 07/27/20 09:07 07/27/20 08:00 07/27/20 09:07 07/27/20 08:00 General: Alert, In no apparent distress, Oriented x3 Laboratory Data at Discharge: WBC 4.40 K/uL (4.3-10.9) 07/27/20 05:31 Hgb 10.3 g/dL (12.0-15.0) L 07/27/20 05:31 Hct 31.1 % (36.0-45.0) L 07/27/20 05:31 Plt Count 158 K/uL (152-406) 07/27/20 05:31 PT 12.2 SECONDS (9.5-12.5) 07/24/20 18:12 INR 1.06 07/24/20 18:12 Sodium 139 mmol/L (136-145) 07/27/20 05:31 Potassium 4.0 mmol/L (3.5-5.1) 07/27/20 05:31 BUN 28 mg/dL (7-18) H 07/27/20 05:31 Creatinine 1.53 mg/dL (0.55-1.3) H 07/27/20 05:31 Glucose 261 mg/dL (74-106) H 07/27/20 05:31 Phosphorus 3.6 mg/dL (2.5-4.9) 07/26/20 05:54 Magnesium 2.2 mg/dL (1.8-2.4) 07/27/20 05:31 Total Bilirubin 0.5 mg/dL (0.2-1.0) 07/27/20 05:31 AST 11 U/L (15-37) L 07/27/20 05:31 ALT 25 U/L (12-78) 07/27/20 05:31 Alkaline Phosphatase < 10 U/L (45-117) L 07/27/20 05:31 Home Medications: Aspirin [Pura Chewable Aspirin] 81 mg PO DAILY 09/16/13 Clopidogrel Bisulfate [Plavix*] 75 mg PO DAILY #0 tablet 09/19/13 Atorvastatin Calcium 20 mg PO BEDTIME 10/12/19 Lisinopril [Zestril] 1 tab PO DAILY 10/12/19 Metformin HCl 1 tab PO BID 10/12/19 Metoprolol Tartrate 25 mg PO BID 10/12/19 Pantoprazole [Protonix Tab*] 1 tab PO DAILY 10/12/19 Lidocaine 4% Patch [Lidoderm 5% Patch*] 1 patch TOP DAILY #30 patch 10/16/19 Famotidine 20 mg PO BID 07/25/20 Hydrocodone 10/APAP 325 [[place] 10/325*] 1 tab PO Q4HR PRN 07/25/20 Gabapentin [Neurontin*] 100 mg PO TID #90 cap 07/26/20 Cyanocobalamin/Cobamamide [Vitamin B-12 5,000 Mcg Tab Sl] 1 each SL DAILY #30 tab.subl 07/27/20 Nitrofurantoin Macrocrystal [Nitrofurantoin] 50 mg PO BID #28 capsule 07/27/20 predniSONE [Prednisone*] 20 mg PO BID #11 tab 07/27/20 New Medications: Gabapentin [Neurontin*] 100 mg PO TID #90 cap Nitrofurantoin Macrocrystal [Nitrofurantoin] 50 mg PO BID #28 capsule predniSONE [Prednisone*] 20 mg PO BID #11 tab Cyanocobalamin/Cobamamide [Vitamin B-12 5,000 Mcg Tab Sl] 1 each SL DAILY #30 tab.subl Physician Discharge Instructions: PROBLEM: Fall, Chest Pain, Peripheral Vascular Disease GOAL: Clear understanding of disease process E-script sent to [facility] in [employer]. INSTRUCTIONS: - Ok to discontinue IV and discharge home. - Follow up with your primary care provider in 1-2 weeks. - Follow-up with Dr. Matute,Orthopedics, for hip pain - Follow-up with Dr. Silva for Neuropathy, and any other neurologic issues - Follow up with cardiology in 1-2 weeks. - Return to the ER if symptoms worsen. - Call or text Dr. Soares at if any questions regarding hospital stay. - Please call the floor at if any medication or nursing questions. Diet: Heart healthy Activity: Fall precautions COMMUNITY SERVICES Services Needed: Home Health Name of Company: [place] [employer] Date or Referral: 07/25/2020 IMMUNIZATION Influenza Vaccine Indicated: Influenza Vaccine Given: Date Given: Pneumonia Vaccine Indicated: No Pneumonia Vaccine Given: Date Given: Diet: AHA Activity: Fall precautions Followup: Rg Frey MD [ACTIVE - CAN ADMIT] - 1-2 Weeks (Follow up in office in 1-2 weeks. Call to schedule an appointment. ) Que Silva MD [ASSOCIATE-ACTIVE - CAN ADMIT] - 1-2 Weeks (Follow up in office in 1-2 weeks. Call to schedule an appointment.) Mihir Matute MD [ACTIVE - CAN ADMIT] - 1-2 Weeks (Follow up in office in 1-2 weeks. Call to schedule an appointment.) Time spent managing pt's care (in minutes): 35
--- NOTE | 2020-08-15 03:30 | P.PN ---
Date of Service: 07/26/20 Subjective Patient continues to do well with no new complaints. Imaging studies are pending. No significant allergy to iodine at this time. Review of Systems 10-point ROS is otherwise unremarkable Physical Examination - Vital Signs Reviewed - Physical Exam General: Alert, In no apparent distress, Oriented x3 Respiratory: Clear to auscultation bilaterally, Normal air movement Cardiovascular: Regular rate/rhythm, Normal S1 S2, No murmurs Gastrointestinal: Normal bowel sounds, Soft and benign, Non-distended, No tenderness Musculoskeletal: No clubbing, No swelling, No tenderness Neurological: Sensation intact, Cranial nerves 3-12 intact Assessment & Plan - Problems (Diagnosis) (1) Status post fall Current Visit: Yes Status: Acute (2) Chest pain Onset Date: 03/08/17 Current Visit: No Status: Acute Qualifiers: (3) Congestive heart failure (CHF) Onset Date: 03/08/17 Current Visit: No Status: Acute Qualifiers: (4) Diabetes Current Visit: No Status: Acute (5) Neuropathy Current Visit: No Status: Acute (6) PAD (peripheral artery disease) Current Visit: No Status: Acute (7) Weight loss Current Visit: No Status: Acute (8) Coronary artery disease Onset Date: 03/08/17 Current Visit: No Status: Chronic Qualifiers: - Plan 1. CT angio with dissection without any significant abnormality. 2. Medication to premedicate given and no allergies to iodine noted. 3. Pain controlled 4. Continue with Steroids times 24 hr 5. Continue with anti-platelet therapy and statin therapy 6. Echocardiogram and carotid Doppler are pending 7. GI and DVT prophylaxis Discharge Plan: Home Plan to discharge in: Greater than 2 days - Advance Directives Does patient have a Living Will: No Does patient have a Durable POA for Healthcare: No - Code Status/Comfort Care Code Status Assessed: Yes Code Status: Full Code Critical Care: No Time Spent Managing PTS Care (In Minutes): 35
== END 2020-07-27 12:12 | disposition home health service (06) | DRG 682 ==
LOC: ER 17:12 → OBSVTOIN 20:17 → ERHOLD 20:17 → 2ND 07-25 20:54
PROVIDERS: ADMIT Hospitalist; ATTEND Hospitalist
DX: N17.9 Acute kidney failure, unspecified (principal); I50.33 Acute on chronic diastolic (congestive) heart failure; N39.0 Urinary tract infection, site not specified; I13.0 Hypertensive heart and chronic kidney disease with heart failure and stage 1 through stage 4 chronic kidney disease, or unspecified chronic kidney disease; N18.30 Chronic kidney disease, stage 3 unspecified; E11.22 Type 2 diabetes mellitus with diabetic chronic kidney disease; E11.51 Type 2 diabetes mellitus with diabetic peripheral angiopathy without gangrene; E11.40 Type 2 diabetes mellitus with diabetic neuropathy, unspecified; I25.10 Atherosclerotic heart disease of native coronary artery without angina pectoris; M25.551 Pain in right hip; G89.29 Other chronic pain; I25.2 Old myocardial infarction; R63.4 Abnormal weight loss; R07.9 Chest pain, unspecified; W10.9XXA Fall (on) (from) unspecified stairs and steps, initial encounter; Z88.8 Allergy status to other drugs, medicaments and biological substances; Z88.6 Allergy status to analgesic agent; Z91.012 Allergy to eggs; Z90.49 Acquired absence of other specified parts of digestive tract; Z68.29 Body mass index [BMI] 29.0-29.9, adult; Z98.51 Tubal ligation status; Z95.5 Presence of coronary angioplasty implant and graft; Z90.710 Acquired absence of both cervix and uterus; Z95.1 Presence of aortocoronary bypass graft; Z79.82 Long term (current) use of aspirin; Z79.02 Long term (current) use of antithrombotics/antiplatelets; Z79.84 Long term (current) use of oral hypoglycemic drugs; Z79.52 Long term (current) use of systemic steroids; Z79.899 Other long term (current) drug therapy; Z20.822 Contact with and (suspected) exposure to COVID-19
CPT/HCPCS: 36415; 51702; 70450; 71045; 71250; 71275; 71550; 72125; 72170; 74175; 80048; 80053; 80076; 81003; 82533; 82607; 82746; 83540; 83735; 83880; 84100; 84439; 84443; 84484; 85025; 85044; 85610; 87077; 87086; 87088; 87186; 93005; 93306; 93970; 96374; 96375; 97116; 97161; 97530; 99285; J0696; J1644; J1720; J2270; J2405; J3420; J7030; Q9967; U0003

== ENCOUNTER 2021-02-13 07:45 | Day surgery (SDC) | payer OTHER ==
--- NOTE | 2021-02-10 14:39 | RAD REPORT ---
EXAM DESCRIPTION: RAD - Chest Pa And Lat (2 Views) - 02/10/2021 2:21 pm CLINICAL HISTORY: Pre Op pending Abdominal angiogram COMPARISON: Chest Single View dated 07/24/2020; Chest Single View dated 10/16/2019; Chest Single View dated 10/12/2019; Chest Single View dated 09/10/2019 FINDINGS: Lines: None. Lungs: No evidence of edema or pneumonia. Pleural: No significant pleural effusions or pneumothorax. Cardiac: Mild cardiomegaly. Bones: No acute fractures. Other: Sternotomy. IMPRESSION: No acute cardiopulmonary disease.
[2021-02-10 14:43] LABS: Protime INR 1.05
[2021-02-10 15:04] LABS: Absolute Lymphocytes (CBC) 1.8 K/uL (0.7-4.9); Basophils % 1.4 % (0-1.3); Hematocrit 32.1 % (36.0-45.0); Lymphocytes % 33.2 % (15.3-44.8); MPV 8.2 fL (7.6-11.3); RBC Red Blood Cell Count 3.53 M/uL (3.86-4.86)
[2021-02-13] MEDS ORDERED: MIDAZOLAM HCL 2 MG/2 ML INJ ONE ×2 (09:15→09:42)
[2021-02-13] MEDS ORDERED: FENTANYL CITR 100 MCG/2 ML ONE (09:15)
[2021-02-13] MEDS ORDERED: HEPARIN 5000 UNIT/ML 1 ML VIAL ONE (09:15)
[2021-02-13] MEDS ORDERED: ATROPINE SULF 1 MG/10 ML SYR IV ONE (09:15)
[2021-02-13] MEDS ORDERED: METHYLPREDNISOLONE 125 MG INJ ONE (09:37)
[2021-02-13] MEDS ORDERED: HYDRALAZINE HCL 20 MG/ML VIAL ONE (09:42)
[2021-02-13] MEDS ORDERED: NA CHLORIDE 0.9% 500 ML ONE (10:04)
--- NOTE | 2021-02-13 11:21 | OP ---
Date of Procedure: 02/13/2021 Surgeon: Rg Frey MD Occupational Health Technician: Shobha Antoine. Procedure Performed: Abdominal angiogram with runoff. Today's date is 02/13/2021. Indication: Severe peripheral arterial disease. Procedure In Detail: The patient was brought to the tutorial laboratory supervisor today on 02/13/2021 as an outpatient. Was given fentanyl, Versed, and Solu-Medrol because of iodine allergy. She was given 10 mg of hydral azine for severe hypertension. A 6-[place] sheath was introduced in the right common femoral artery. A 4-[place] sheath was introduced in the right common femoral vein using the Seldinger technique and 10 cc of Xylocaine. The common femoral vein was cannulated because of poor venous access everywhere else. A pigtail catheter was then introduced above the renals. That was 6-[place]. Angiography ther e showed normal renals, normal aorta, normal iliacs, normal common femoral arteries. The SFA has had about a 40% to 50% stenosis bilaterally in the distal SFA. The anterior tibials were normal, but sh e had a complete occlusion of the peroneal arteries and the posterior tibial bilaterally. The patien t tolerated the procedure well. There were no complications. Blood Loss: 5 cc. Postoperative Diagnosis: Severe peripheral arterial disease. Plan: Plan is for medical therapy for now. We will consider showing the film to one of the vascular surgeons in [place], see they can do any intervention, although I doubt it. I will consider use of low-dose Xarelto. Continue Trental. The patient will go home after 2 hours of bedrest today and I w ill see her in the office in the near future. Anesthesia: Total conscious sedation was 45 minutes. NB/MODL Voice ID: [id number] Report ID: [id number]
[2021-02-13] MEDS ORDERED: ACETAMINOPHEN 325 MG TABLET ONE (11:56)
[2021-02-13 13:47] VITALS: BP 158/69; TEMP 98; O2SAT 97
--- NOTE | 2021-02-13 18:33 | EKG ---
Test Date: 2021-02-10 Test Time: 13:05:19 Ruffler: NAN MEASUREMENT RESULTS: Intervals: Rate: 52 CO: 290 QRSD: 102 QT: 450 QTc: 418 [place]: P: 78 CO: 290 QRS: 63 T: 74 INTERPRETIVE STATEMENTS: Sinus bradycardia with sinus arrhythmia with 1st degree AV block Otherwise normal ECG Compared to ECG 07/24/2020 18:17:50 Sinus rhythm no longer present ST (T wave) deviation no longer present Possible ischemia no longer present Electronically Signed On 02-13-21 18:24:40 PHOTO MASK INSPECTOR by Rg Frey
== END 2021-02-13 13:35 | disposition home or self-care (01) ==
LOC: PRE 07:45 → CCL 13:35
DX: I70.213 Atherosclerosis of native arteries of extremities with intermittent claudication, bilateral legs (principal); I70.92 Chronic total occlusion of artery of the extremities; I25.10 Atherosclerotic heart disease of native coronary artery without angina pectoris; I65.23 Occlusion and stenosis of bilateral carotid arteries; I12.9 Hypertensive chronic kidney disease with stage 1 through stage 4 chronic kidney disease, or unspecified chronic kidney disease; E11.22 Type 2 diabetes mellitus with diabetic chronic kidney disease; N18.9 Chronic kidney disease, unspecified; G62.9 Polyneuropathy, unspecified; E78.2 Mixed hyperlipidemia; E87.5 Hyperkalemia; I25.2 Old myocardial infarction; Z95.1 Presence of aortocoronary bypass graft; Z95.5 Presence of coronary angioplasty implant and graft; Z91.012 Allergy to eggs; Z91.018 Allergy to other foods; Z88.8 Allergy status to other drugs, medicaments and biological substances; Z20.822 Contact with and (suspected) exposure to COVID-19; Z91.041 Radiographic dye allergy status; Z82.49 Family history of ischemic heart disease and other diseases of the circulatory system
CPT/HCPCS: 36200; 36415; 71046; 75630; 80048; 82947; 85025; 85610; 85730; 93005; C1893; J0360; J1644; J2250; J2930; J3010; J7040; U0003

== ENCOUNTER 2021-02-19 18:47 | Observation (INO) | payer OTHER ==
--- OUTSIDE RECORDS SUMMARY | 2021-02-19 18:53 | XMS REPORT | Continuity of Care Document ---
:1940 Author Organization [facility] t Address [address] [place] [address] Care Team Providers Name Role Phone ZENAIDA ROPER Attending Clinician Unavailable TRUMAN TA Attending Clinician Unavailable ANNETTE CORREA Attending Clinician Unavailable ZENAIDA ROPER Admitting Clinician Unavailable TRUMAN TA Admitting Clinician Unavailable ANNETTE CORREA Admitting Clinician Unavailable Payers Payer Name Policy Type Policy Number Effective Date Expiration Date S [facility] MEDICARE A B [id number] 2005 00:00:00 MEDICAID [place] [id number] 2010 00:00:00 Problems This patient has no known problems. Allergies, Adverse Reactions, Alerts Allergy Allergy Status Severity Reaction(s) Onset Inactive Treating Comm ents Source Name Type Date Date Clinician CAULIFLO Allergy Active N\T\V 2019-[address] [facility] PROPOXYP Allergy Active N\T\V [address] [facility] - N-ACETAM 00:00: Medical INOPHEN 00 Center EGG Allergy Active N\T\V [address] [facility] 6[facility] STATINS- Allergy Active N\T\V [address] [facility]COA [facility] - REDUCTAS 00:00: Medical E 00 Center INHIBITO RS IODINE Allergy Active Low Rash [facility] - IODIDE 00:00: Medical CONTAINI 00 Center NG PRODUCTS Medications This patient has no known medications. Vital Signs Vital Name Observation Time Observation Value Comments Source HEIGHT 2019-09-18 00:00:00 157.7 cm WEIGHT 2019-09-18 00:00:00 70.852 kg HEIGHT 2019-09-11 00:00:00 157.5 cm WEIGHT 2019-09-11 00:00:00 79.833 kg HEIGHT 2019-09-18 00:00:00 157.7 cm WEIGHT 2019-09-18 00:00:00 70.852 kg HEIGHT 2019-09-11 00:00:00 157.5 cm WEIGHT 2019-09-11 00:00:00 79.833 kg Procedures This patient has no known procedures. Encounters Start End Encounter Admission Attending Care Care Encounter Source Date/Time Date/Time Type Type Clinicians Facility Department ID 2021-01-10 Inpatient JUDSON [facility] Surgery [id number] SLE 19:36:46 SUPRIYA 2019-09-18 Inpatient CORKY TA [facility] PM\T\R [id number] SLE 17:27:00 UVIEOGHENE 2019-09-12 Inpatient UR SUNNY [facility] Cardiovascu [id number] SLE 00:27:00 PETER nichelle 2019-09-28 2019-09-28 Outpatient JUDSON [facility] [id number] SLE 00:00:00 00:00:00 SUPRIYA Results Test Description Test Time Test Comments Results Result Comments Source SARS-COV2/RT-PCR ([facility]) 2019-10-13 21:12:00 Test Item Value Reference Range Interpretation Comme nts SARS-COV2/RT-PCR (test code = 3055574) Positive Not Detected, N egative AA SARS-COV-2 PERFORMING LAB (test code = 8619157) [facility] Results are for the detection of SARS-CoV-2 [...] 564(g) of the Act.Fact Sheet for Healthcare Providers:https://www.Pressglue.LaunchTrack/sites/default/files/product/d ocuments/Dqiu_Qpwvl_RC_Jjcdgxzju_Yqsy_ZHJL-ZaP-6.pdfFact Sheet for Healthcare Patients:https://www.Stringbike/sites/default/files/product/documents/Fact_Sheet_Patients_Lyra_SARS-CoV -2.pdfPerforming Laboratory:[address] [address]MKARZAZNH CULTURE + GRAM [id number] 17:14:00 Test Item Value Reference Range Interpretation [...] gram negative (BEAKER) (test code rods = 716959) POCT-GLUCOSE [id number] 06:16:00 Test Item Value Reference Range Interpretation Comments POC-GLUCOSE METER 119 mg/dL 70-110 H : TESTED A T [facility] 7200 (BEAKER) (test code PRABHJOT JAMISON A, = 1538) [facility] 7703 0: General Office Dispatcher/Techni santana ID = [id number] for ABI RAMOS BASIC METABOLIC [id number] 02:40:00 Test Item Value Reference Range Interpretation [...] APPLICABLE FOR DIALYSIS PATIEN TS. BASIC METABOLIC [id number] 09:47:00 Test Item Value Reference Range Interpretation [...] NOT APPLICABLE FOR DIALYSIS PATIEN TS. POCT-GLUCOSE [id number] 06:23:00 Test Item Value Reference Range Interpretation Comments POC-GLUCOSE METER 120 mg/dL 70-110 H : TESTED A T [facility] 7200 (BEAKER) (test code CAMBRIDG E BLDG A, = 1538) [facility] 7703 0: General Office Dispatcher/Techni santana ID = [id number] for HAY JIMENEZ POCT-GLUCOSE [id number] 21:03:00 Test Item Value Reference Range Interpretation Comments POC-GLUCOSE METER 174 mg/dL 70-110 H : TESTED A T [facility] 7200 (BEAKER) (test code CAMBRIDG E BLDG A, = 1538) [facility] 7703 0: General Office Dispatcher/Techni santana ID = [id number] for HAY JIMENEZ [id number] 12:10:00 Test Item Value Reference Range Interpretation Comments MAGNESIUM (BEAKER) (test code = 2.1 mg/dL 1.6-2.6 627) COMPREHENSIVE METABOLIC [id number] 12:10:00 Test Item Value Reference Range Interpretation [...] NOT APPLICABLE FOR DIALYSIS PATIEN TS. CBC W/PLT COUNT & AUTO [id number] 12:08:00 Test Item Value Reference Range Interpretation [...] PERCENT (BEAKER) (test code = 2801) POCT-GLUCOSE [id number] 06:28:00 Test Item Value Reference Range Interpretation Comments POC-GLUCOSE METER 128 mg/dL 70-110 H : TESTED A T [facility] 7200 (BEAKER) (test code CAMBRIDG E BLDG A, = 1538) [place] [address] 0: General Office Dispatcher/Techni santana ID = [id number] for TIARA PIERRE POCT-GLUCOSE [id number] 06:39:00 Test Item Value Reference Range Interpretation Comments POC-GLUCOSE METER 116 mg/dL 70-110 H : TESTED A T [facility] 7200 (BEAKER) (test code CAMBRIDG E BLDG A, = 1538) [place] [address] 0: General Office Dispatcher/Techni santana ID = [id number] for TIARA PIERRE POCT-GLUCOSE [id number] 21:34:00 Test Item Value Reference Range Interpretation Comments POC-GLUCOSE METER 145 mg/dL 70-110 H : TESTED A T [facility] 7200 (BEAKER) (test code CAMBRIDG E BLDG A, = 1538) [place] [address] 0: General Office Dispatcher/Techni santana ID = [id number] for TIARA PIERRE POCT-GLUCOSE [id number] 16:44:00 Test Item Value Reference Range Interpretation Comments POC-GLUCOSE METER 150 mg/dL 70-110 H : TESTED A T [facility] 7200 (BEAKER) (test code CAMBRIDG E BLDG A, = 1538) [place] [address] 0: General Office Dispatcher/Techni santana ID = [id number] for JONNIE QUINTERO POCT-GLUCOSE [id number] 11:48:00 Test Item Value Reference Range Interpretation Comments POC-GLUCOSE METER 133 mg/dL 70-110 H : TESTED A T [facility] 7200 (BEAKER) (test code CAMBRIDG E BLDG A, = 1538) [place] [address] 0: General Office Dispatcher/Techni santana ID = [id number] for JONNIE QUINTERO POCT-GLUCOSE [id number] 07:14:00 Test Item Value Reference Range Interpretation Comments POC-GLUCOSE METER 118 mg/dL 70-110 H : TESTED A T [facility] 7200 (BEAKER) (test code [place] E BLDG A, = 1538) [place] [address] 0: General Office Dispatcher/Techni santana ID = [id number] for TIARA PIERRE POCT-GLUCOSE [id number] 23:21:00 Test Item Value Reference Range Interpretation Comments POC-GLUCOSE METER 214 mg/dL 70-110 H : TESTED A T [facility] 7200 (BEAKER) (test code CAMBR[place]G E BLDG A, = 1538) [place] [address] 0: General Office Dispatcher/Techni santana ID = [id number] for TIARA PIERRE POCT-GLUCOSE [id number] 16:15:00 Test Item Value Reference Range Interpretation Comments POC-GLUCOSE METER 169 mg/dL 70-110 H : TESTED A T [facility] 7200 (BEAKER) (test code CAMBRIDG E BLDG A, = 1538) [place] [address] 0: General Office Dispatcher/Techni santana ID = [id number] for OMIW ANGELA, SYRIETA POCT-GLUCOSE [id number] 11:21:00 Test Item Value Reference Range Interpretation Comments POC-GLUCOSE METER 164 mg/dL 70-110 H : TESTED A T [facility] 7200 (BEAKER) (test code CAMBRIDG E BLDG A, = 1538) [place] [address] 0: General Office Dispatcher/Techni santana ID = [id number] for OMIW ANGELA, SYRIETA POCT-GLUCOSE [id number] 06:46:00 Test Item Value Reference Range Interpretation Comments POC-GLUCOSE METER 119 mg/dL 70-110 H : TESTED A T [facility] 7200 (BEAKER) (test code CAMBRIDG E BLDG A, = 1538) [place] [address] 0: General Office Dispatcher/Techni santana ID = [id number] for NICA , HAY POCT-GLUCOSE [id number] 20:54:00 Test Item Value Reference Range Interpretation Comments POC-GLUCOSE METER 174 mg/dL 70-110 H : TESTED A T [facility] 7200 (BEAKER) (test code CAMBRIDG E BLDG A, = 1538) [place] [address] 0: General Office Dispatcher/Techni santana ID = [id number] for NICA , HAY POCT-GLUCOSE [id number] 17:47:00 Test Item Value Reference Range Interpretation Comments POC-GLUCOSE METER 111 mg/dL 70-110 H : [facility] (BERADHA[facility] (test code PRABHJOT Ambrosio, = 1538) [facility] 7703 0: General Office Dispatcher/Techni santana ID = [id number] for ZAIN FLOWER RAD, ABDOMEN/KUB, 1 VIEW [id number] 14:15:00Reason for exam:->constipation, abdominal painShould this be [...] Almodovar Verified Date/Time: 09/24/2019 14:15:34 Reading Location: [facility] Reading Room [address] [place] [address] RAD, CHEST, 1 VIEW, NON [id number] 13:22:00Reason for exam:->h/o CABG, f/u venous congestion [...] MDReport Verified Date/Time: 09/24/2019 13:22:42 Reading Location: [facility] Reading Room [address] [place], [place] [address]Electronically signedby: LEIGH CARBAJAL M.D. on 09/24/2019 01:22 PMPOCT-GLUCOSE [id number] 12:17:00 Test Item Value Reference Range Interpretation Comments POC-GLUCOSE METER 193 mg/dL 70-110 H : TESTED A T [facility] 7200 (BEAKER) (test code CAMBRIDG E BLDG A, = 1538) [place] [address] 0: General Office Dispatcher/Techni santana ID = [id number] for OMIW TANMAY MILLERIETA POCT-GLUCOSE [id number] 06:22:00 Test Item Value Reference Range Interpretation Comments POC-GLUCOSE METER 130 mg/dL 70-110 H : TESTED A T [facility] 7200 (BEAKER) (test code CAMBRIDG E BLDG A, = 1538) [place] [address] 0: General Office Dispatcher/Techni santana ID = [id number] for RICHARD , ABI POCT-GLUCOSE [id number] 20:43:00 Test Item Value Reference Range Interpretation Comments POC-GLUCOSE METER 196 mg/dL 70-110 H : TESTED A T [facility] 7200 (BEAKER) (test code CAMBRIDG E BLDG A, = 1538) [place] [address] 0: General Office Dispatcher/Techni santana ID = [id number] for RICHARD , ABI POCT-GLUCOSE [id number] 17:05:00 Test Item Value Reference Range Interpretation Comments POC-GLUCOSE METER 163 mg/dL 70-110 H : TESTED A T [facility] 7200 (BEAKER) (test code CAMBR[place] E BLDG A, = 1538) [place] [address] 0: General Office Dispatcher/Techni santana ID = [id number] for NWAJ IAKU, JACKY POCT-GLUCOSE [id number] 12:02:00 Test Item Value Reference Range Interpretation Comments POC-GLUCOSE METER 204 mg/dL 70-110 H : TESTED A T [facility] 7200 (BEAKER) (test code CAMBR[place] E BLDG A, = 1538) [place] [address] 0: General Office Dispatcher/Techni santana ID = [id number] for JACKY DUONG POCT-GLUCOSE [id number] 06:22:00 Test Item Value Reference Range Interpretation Comments POC-GLUCOSE METER 127 mg/dL 70-110 H : TESTED A T [facility] 7200 (BEAKER) (test code CAMBR[place]G E BLDG A, = 1538) [place] [address] 0: General Office Dispatcher/Techni santana ID = [id number] for CHAR RAMOSA POCT-GLUCOSE [id number] 20:36:00 Test Item Value Reference Range Interpretation Comments POC-GLUCOSE METER 236 mg/dL 70-110 H : TESTED A T [facility] 7200 (BEAKER) (test code CAMBR[place]G E BLDG A, = 1538) [place] [address] 0: General Office Dispatcher/Techni santana ID = [id number] for ABI RAMOS POCT-GLUCOSE [id number] 16:53:00 Test Item Value Reference Range Interpretation Comments POC-GLUCOSE METER 205 mg/dL 70-110 H : TESTED A T [facility] 7200 (BEAKER) (test code CAMBRIDG E BLDG A, = 1538) [place] [address] 0: General Office Dispatcher/Techni santana ID = [id number] for JONNIE QUINTERO POCT-GLUCOSE [id number] 12:20:00 Test Item Value Reference Range Interpretation Comments POC-GLUCOSE METER 201 mg/dL 70-110 H : TESTED A T [facility] 7200 (BEAKER) (test code CAMBRIDG E BLDG A, = 1538) [place] [address] 0: General Office Dispatcher/Techni santana ID = [id number] for JONNIE QUINTERO POCT-GLUCOSE [id number] 07:11:00 Test Item Value Reference Range Interpretation Comments POC-GLUCOSE METER 134 mg/dL 70-110 H : TESTED A T [facility] 7200 (BEAKER) (test code CAMBRIDG E BLDG A, = 1538) [place] [address] 0: General Office Dispatcher/Techni santana ID = [id number] for TIARA PIERRE VITAMIN B12 AND [id number] 06:31:00 Test Item Value Reference Range Interpretation Comments VITAMIN B12 (BEAKER) (test code = 856 pg/mL 211911 974) FOLATE (BEAKER) (test code = 362) 12.43 ng/mL >=5.40 TSH/FREE T4 IF [id number] 05:57:00 Test Item Value Reference Range Interpretation Comments THYROID STIMULATING HORMONE 1.234 uIU/mL 0.350-5.500 (BEAKER) (test code = 772) POCT-GLUCOSE [id number] 20:59:00 Test Item Value Reference Range Interpretation Comments POC-GLUCOSE METER 225 mg/dL 70-110 H : TESTED A T [facility] 7200 (BEAKER) (test code CAMBRIDG E BLDG A, = 1538) [place] [address] 0: General Office Dispatcher/Techni santana ID = [id number] for TIARA PIERRE POCT-GLUCOSE [id number] 16:55:00 Test Item Value Reference Range Interpretation Comments POC-GLUCOSE METER 198 mg/dL 70-110 H : TESTED A T [facility] 7200 (BEAKER) (test code CAMBRIDG E BLDG A, = 1538) [place] [address] 0: General Office Dispatcher/Techni santana ID = [id number] for AMIE BEGUM, JUCEL ADAM POCT-GLUCOSE [id number] 12:12:00 Test Item Value Reference Range Interpretation Comments POC-GLUCOSE METER 254 mg/dL 70-110 H : TESTED A T [facility] 7200 (BEAKER) (test code CAMBRIDG E BLDG A, = 1538) [place] [address] 0: General Office Dispatcher/Techni santana ID = [id number] for AMIE BEGUM, JUCEL ADAM POCT-GLUCOSE [id number] 06:08:00 Test Item Value Reference Range Interpretation Comments POC-GLUCOSE METER 132 mg/dL 70-110 H : TESTED A T [facility] 7200 (BEAKER) (test code CAMBR[place]G E BLDG A, = 1538) [place] [address] 0: General Office Dispatcher/Techni santana ID = [id number] for Indio Waever COMPREHENSIVE METABOLIC [id number] 05:52:00 Test Item Value Reference Range Interpretation [...] S NOT APPLICABLE FOR DIALYSIS PATIEN TS. [id number] 05:52:00 Test Item Value Reference Range Interpretation Comments PHOSPHORUS (BEAKER) (test code = 3.3 mg/dL 2.3-4.7 604) CBC W/PLT COUNT & AUTO [id number] 05:36:00 Test Item Value Reference Range Interpretation [...] PERCENT (BEAKER) (test code = 2801) POCT-GLUCOSE [id number] 20:47:00 Test Item Value Reference Range Interpretation Comments POC-GLUCOSE METER 232 mg/dL 70-110 H : TESTED A T [facility] 7200 (BEAKER) (test code PRABHJOT Dickens BLDG A, = 1538) [facility] 7703 0: General Office Dispatcher/Techni santana ID = [id number] for NICA , HAY POCT-GLUCOSE [id number] 16:39:00 Test Item Value Reference Range Interpretation Comments POC-GLUCOSE METER 211 mg/dL 70-110 H : TESTED A T [facility] 7200 (BEAKER) (test code CAMBRIDG E BLDG A, = 1538) [place] [address] 0: General Office Dispatcher/Techni santana ID = [id number] for AARON ERAPARVEEN POCT-GLUCOSE [id number] 11:51:00 Test Item Value Reference Range Interpretation Comments POC-GLUCOSE METER 195 mg/dL 70-110 H : TESTED A T [facility] 7200 (BEAKER) (test code CAMBR[place]G E BLDG A, = 1538) [place] [address] 0: General Office Dispatcher/Techni santana ID = [id number] for AARON CHARLIE, PARVEEN POCT-GLUCOSE [id number] 06:12:00 Test Item Value Reference Range Interpretation Comments POC-GLUCOSE METER 128 mg/dL 70-110 H : TESTED A T [facility] 7200 (BEAKER) (test code CAMBR[place]G E BLDG A, = 1538) [place] [address] 0: General Office Dispatcher/Techni santana ID = [id number] for NICA , HAY [id number] 05:48:00 Test Item Value Reference Range Interpretation Comments PHOSPHORUS (BEAKER) (test code = 2.6 mg/dL 2.3-4.7 604) POCT-GLUCOSE [id number] 20:39:00 Test Item Value Reference Range Interpretation Comments POC-GLUCOSE METER 189 mg/dL 70-110 H : TESTED A T [facility] 7200 (BEAKER) (test code CAMBRIDG E BLDG A, = 1538) [place] [address] 0: General Office Dispatcher/Techni santana ID = [id number] for NICA , HAY POCT-GLUCOSE [id number] 17:03:00 Test Item Value Reference Range Interpretation Comments POC-GLUCOSE METER 175 mg/dL 70-110 H : TESTED A T [facility] 7200 (BEAKER) (test code CAMBRIDG E BLDG A, = 1538) [place] [address] 0: General Office Dispatcher/Techni santana ID = [id number] for ANNA MANRIQUE CHIOMA POCT-GLUCOSE [id number] 12:14:00 Test Item Value Reference Range Interpretation Comments POC-GLUCOSE METER 142 mg/dL 70-110 H : TESTED A T [facility] 7200 (BEAKER) (test code PRABHJOT Dickens BLDG A, = 1538) [place] 7703 0: General Office Dispatcher/Techni santana ID = [id number] for JACKY DUONG COMPREHENSIVE METABOLIC [id number] 07:05:00 Test Item Value Reference Range Interpretation [...] S NOT APPLICABLE FOR DIALYSIS PATIEN TS. [id number] 07:05:00 Test Item Value Reference Range Interpretation Comments MAGNESIUM (BEAKER) (test code = 1.9 mg/dL 1.6-2.6 627) POCT-GLUCOSE [id number] 06:33:00 Test Item Value Reference Range Interpretation Comments POC-GLUCOSE METER 121 mg/dL 70-110 H : [facility] (BEAKER[facility] (test code PRABHJOT Dickens [facility] [place], = 1538) [place] 7[address] 0: General Office Dispatcher/Techni santana ID = [id number] for ABI RAMOS CBC W/PLT COUNT & AUTO [id number] 06:24:00 Test Item Value Reference Range Interpretation [...] 0-1 PERCENT (BEAKER) (test code = 2801) [id number] 06:23:00 Test Item Value Reference Range Interpretation Comments PHOSPHORUS (BEAKER) (test code = 2.8 mg/dL 2.3-4.7 604) POCT-GLUCOSE [id number] 20:51:00 Test Item Value Reference Range Interpretation Comments POC-GLUCOSE METER 166 mg/dL 70-110 H : TESTED A T [facility] 7200 (BEAKER) (test code CAMBRIDG E BLDG A, = 1538) [place] [address] 0: General Office Dispatcher/Techni santana ID = [id number] for ABI RAMOS POCT-GLUCOSE [id number] 18:21:00 Test Item Value Reference Range Interpretation Comments POC-GLUCOSE METER 159 mg/dL 70-110 H : TESTED A T [facility] 7200 (BEAKER) (test code CAMBRIDG E BLDG A, = 1538) [place] [address] 0: General Office Dispatcher/Techni santana ID = [id number] for ANNA IAYOSVANY, JACKY FL, [id number] 14:37:00Reason for exam:->gerdFINAL REPORT Barium esophagogram Clinical History: gerd Discussion: Effervesc ent crystals, thick barium, and thin barium are [...] obtained: 13 Impression: Moderate to severe gastroesophageal reflux. Signed: Karin Henao Verified Date/Time: 09/18/2019 14:37:01 Reading Location: [address] Consult Reading Room POCT-GLUCOSE [id number] 14:31:00 Test Item Value Reference Range Interpretation Comments POC-GLUCOSE METER 166 mg/dL 70-110 H : TESTED A T [facility] 6720 (BEAKER) (test code = YSABELKY Sabrina [facility], 1538) [address]: General Office Dispatcher/Techni santana ID = [id number] for MELISSA GILLILAND FL, ESOPH, SWALLOW FUNCTION, WITH CINE OR [id number] 13:23:00MBSS w/robin + esophagram as feasibleReason for [...] Henao Verified Date/Time: 09/18/2019 13:23:18 Reading Location: [facility] C013X Ortho Consult Reading Room POCT-GLUCOSE [id number] 11:13:00 Test Item Value Reference Range Interpretation Comments POC-GLUCOSE METER 115 mg/dL 70-110 H : TESTED A T [facility] 6720 (BEAKER) (test code = [facility], 1538) [address]: General Office Dispatcher/Techni santana ID = [id number] for MELISSA GILLILAND CBC W/PLT COUNT & AUTO [id number] 11:02:00 Test Item Value Reference Range Interpretation [...] 0-1 PERCENT (BEAKER) (test code = 2801) [id number] 06:59:00 Test Item Value Reference Range Interpretation Comments PHOSPHORUS (BEAKER) (test code = 2.1 mg/dL 2.3-4.7 L 604) General Office Dispatcher ID - DANO [id number] 06:59:00 Test Item Value Reference Range Interpretation Comments MAGNESIUM (BEAKER) (test code = 2.0 mg/dL 1.6-2.6 627) General Office Dispatcher ID - DANO MBASIC METABOLIC [id number] 06:59:00 Test Item Value Reference Range Interpretation [...] S NOT APPLICABLE FOR DIALYSIS PATIEN TS. General Office Dispatcher ID - DANO MRAD, CHEST, 1 VIEW, NON [id number] 04:57:00Reason for exam:->CTShould this be performed at [...] Abhinav Cuevas MDReport Verified Date/Time:09/18/2019 04:57:13 POCT-GLUCOSE [id number] 21:54:00 Test Item Value Reference Range Interpretation Comments POC-GLUCOSE METER 164 mg/dL 70-110 H : TESTED A T [facility] 6720 (BEAKER) (test code = KAVYA VANESSA [place], 1538) [address]: General Office Dispatcher/Techni santana ID = [id number] for BIANCA RICHARDS POCT-GLUCOSE [id number] 21:34:00 Test Item Value Reference Range Interpretation Comments POC-GLUCOSE METER 165 mg/dL 70-110 H : TESTED A T [facility] 6720 (BEAKER) (test code = KAVYA Bennett [facility], 1538) [address]: General Office Dispatcher/Techni santana ID = [id number] for MELISSA GILLILAND URINALYSIS W/ REFLEX URINE [id number] 17:29:00 Test Item Value Reference Range Interpretation [...] code = 1584) SOURCE(BEAKER) (test code = 3505) General Office Dispatcher ID - [auto]General Office Dispatcher ID - techPOCT-GLUCOSE [id number] 12:48:00 Test Item Value Reference Range Interpretation Comments POC-GLUCOSE METER 168 mg/dL 70-110 H : TESTED A T [facility] 6720 (BEAKER) (test code = KAVYA Bennett [facility], 1538) [address]: General Office Dispatcher/Techni santana ID = [id number] for MELISSA GILLILAND RAD, CHEST, 1 VIEW, NON [id number] 08:52:00Reason for exam:->CTShould this be performed at the bedside?->YesFINAL REPORT CLINICAL HISTORY: CT TECHNIQUE: 1 view of the chest. COMPARISON:09/16/2019 IMPRESSION: The right jugular line has been removed. There is a new right PICC line in [facility] axilla, which should be replaced. Midline chest tube has been removed. A left lower chest tuberemains. Left lower chest wall subcutaneous emphysema is again seen. There is no pneumothorax. Bilateral lower lung airspace opacities appear increased. Small bilateral pleural effusions are again seen. The cardiomediastinal silhouette is magnified by technique with sternotomy wires. Signed: Tiara Dunlap [facility] Verified Date/Time: 09/17/2019 08:52:23 Reading Location: [facility] Radiology Reading Room POCT- GLUCOSE [id number] 08:29:00 Test Item Value Reference Range Interpretation Comments POC-GLUCOSE METER 102 mg/dL 70-110 : TESTED A T [facility] 6720 (BEAKER) (test code = KAVYA Bennett [facility], 1538) [address]: General Office Dispatcher/Techni santana ID = [id number] for MELISSA GILLILAND [id number] 06:46:00 Test Item Value Reference Range Interpretation Comments PHOSPHORUS (BEAKER) (test code = 1.9 mg/dL 2.3-4.7 L 604) General Office Dispatcher ID - YELENA [id number] 06:46:00 Test Item Value Reference Range Interpretation Comments MAGNESIUM (BEAKER) (test code = 2.3 mg/dL 1.6-2.6 627) General Office Dispatcher ID - PIVERONICA LBASIC METABOLIC [id number] 06:46:00 Test Item Value Reference Range Interpretation [...] S NOT APPLICABLE FOR DIALYSIS PATIEN TS. General Office Dispatcher ID - PIAYA LCBC W/PLT COUNT & AUTO [id number] 06:20:00 Test Item Value Reference Range Interpretation [...] PERCENT (BEAKER) (test code = 2801) POCT-GLUCOSE [id number] 21:06:00 Test Item Value Reference Range Interpretation Comments POC-GLUCOSE METER 172 mg/dL 70-110 H : TESTED A T [facility] 6720 (BEAKER) (test code = [facility], 1538) [id number]: General Office Dispatcher/Techni santana ID = [id number] for BIANCA RICHARDS POCT-GLUCOSE [id number] 12:38:00 Test Item Value Reference Range Interpretation Comments POC-GLUCOSE METER 181 mg/dL 70-110 H : TESTED A T [facility] 6720 (BEAKER) (test code = [facility], 1538) [id number]: General Office Dispatcher/Techni santana ID = [id number] for KARUNA SCARLET, BRITTANY RAD, CHEST, 1 VIEW, NON [id number] 09:32:00Reason for exam:->CTShould this be performed at [...] MDReport Verified Date/Time: 09/16/2019 09:32:30 Reading Location: [facility] Radiology Reading Room [id number] 04:09:00 Test Item Value Reference Range Interpretation Comments PHOSPHORUS (BEAKER) (test code = 3.2 mg/dL 2.3-4.7 604) General Office Dispatcher ID - DANO [id number] 04:09:00 Test Item Value Reference Range Interpretation Comments MAGNESIUM (BEAKER) (test code = 2.2 mg/dL 1.6-2.6 627) General Office Dispatcher ID - DANO MBASIC METABOLIC [id number] 04:09:00 Test Item Value Reference Range Interpretation [...] S NOT APPLICABLE FOR DIALYSIS PATIEN TS. General Office Dispatcher ID - DANO [id number] 04:07:00 Test Item Value Reference Range Interpretation [...] for patients wiht mechanical heart valves.CBC (HEMOGRAM ONLY)2019-09-16 03:49:00 Test Item Value Reference [...] /100 WBC 0-0 (test code = 413) CALCIUM, [id number] 03:46:00 Test Item Value Reference Range Interpretation Comments CALCIUM IONIZED (BEAKER) (test 1.14 mmol/L 1.12-1.27 code = 698) PH, BLOOD (BEAKER) (test code = 7.34 1810) POCT-GLUCOSE [id number] 22:42:00 Test Item Value Reference Range Interpretation Comments POC-GLUCOSE METER 180 mg/dL 70-110 H : TESTED A T [facility] 6720 (BEAKER) (test code = [facility], 1538) 72591: General Office Dispatcher/Techni santana ID = [id number] for CE RVANTES, PRIYANKA POCT-GLUCOSE [id number] 18:26:00 Test Item Value Reference Range Interpretation Comments POC-GLUCOSE METER 149 mg/dL 70-110 H : TESTED A T [facility] 6720 (BEAKER) (test code = [facility], 1538) 37612: General Office Dispatcher/Techni santana ID = [id number] for BARRENTINE, LB PHEN POCT-GLUCOSE [id number] 15:18:00 Test Item Value Reference Range Interpretation Comments POC-GLUCOSE METER 194 mg/dL 70-110 H : TESTED A T [facility] 6720 (BEAKER) (test code = [facility], 1538) 03288: General Office Dispatcher/Techni santana ID = [id number] for BARRENTINE, LB PHEN CBC (HEMOGRAM ONLY)2019-09-15 [...] WBC 0-0 (test code = 413) POCT-GLUCOSE [id number] 08:26:00 Test Item Value Reference Range Interpretation Comments POC-GLUCOSE METER 87 mg/dL 70-110 : TESTED A T [facility] 6720 (BEAKER) (test code = [facility], 1538) 00137: General Office Dispatcher/Techni santana ID = [id number] for JAIRO BRAVO POCT-GLUCOSE [id number] 06:12:00 Test Item Value Reference Range Interpretation Comments POC-GLUCOSE METER 106 mg/dL 70-110 : TESTED A T [facility] 6720 (BEAKER) (test code = [facility], 1538) 25363: General Office Dispatcher/Techni santana ID = [id number] for CE RVANTES, PRIYANKA BLOOD GAS, [id number] 05:38:00 Test Item Value Reference Range Interpretation [...] (test code = 1819) 36.0 % POCT-GLUCOSE [id number] 05:22:00 Test Item Value Reference Range Interpretation Comments POC-GLUCOSE METER 112 mg/dL 70-110 H : TESTED A T [facility] 6720 (BEAKER) (test code = [facility], 1538) 32875: General Office Dispatcher/Techni santana ID = [id number] for CE RVANTES, PRIYANKA OXYGEN SATURATION, [id number] 04:44:00 Test Item Value Reference Range Interpretation Comments O2 SATURATION (MEASURED) (BEAKER) 90.6 % (test code = 1455) CALCIUM, [id number] 04:13:00 Test Item Value Reference Range Interpretation Comments CALCIUM IONIZED (BEAKER) (test 1.15 mmol/L 1.12-1.27 code = 698) PH, BLOOD (BEAKER) (test code = 7.34 1810) LACTIC ACID, [id number] 04:04:00 Test Item Value Reference Range Interpretation Comments LACTATE BLOOD ARTERIAL (2) 1.1 mmol/L 0.5-2.2 (BEAKER) (test code = 2874) General Office Dispatcher ID - DANO [id number] 04:04:00 Test Item Value Reference Range Interpretation Comments PHOSPHORUS (BEAKER) (test code = 3.7 mg/dL 2.3-4.7 604) General Office Dispatcher ID - DANO [id number] 04:04:00 Test Item Value Reference Range Interpretation Comments MAGNESIUM (BEAKER) (test code = 2.5 mg/dL 1.6-2.6 627) General Office Dispatcher ID - DANO MBASIC METABOLIC [id number] 04:04:00 Test Item Value Reference Range Interpretation [...] S NOT APPLICABLE FOR DIALYSIS PATIEN TS. General Office Dispatcher ID - DANO [id number] 04:01:00 Test Item Value Reference Range Interpretation [...] 0-0 (BEAKER) (test code = 413) POCT-GLUCOSE [id number] 03:45:00 Test Item Value Reference Range Interpretation Comments POC-GLUCOSE METER 125 mg/dL 70-110 H : TESTED A T [facility] 6720 (BEAKER) (test code = [facility], 1538) 63412: General Office Dispatcher/Techni santana ID = [id number] for CE RVANTES, PRIYANKA RAD, CHEST, 1 VIEW, NON [id number] 02:16:00while patient is intubated or has chest tubes.Reason for exam:->Status post CV SurgeryShould thisbe performed at the bedside?->YesFINAL REPORT CLINICAL INDICATION: Postop Comparison: 09/14/2019 at 1736 hours The cardiomediastinal contours are stable. The lung volumes have decreased after extubation. Worsening infrahilar opacities may reflect atelectasis but pneumonitis should be excluded clinically. There is no pneumothorax. Remaining support lines are stable. Signed: Kulwant Ibrahim [facility] Verified Date/Time: 09/15/2019 02:16:54 POCT-GLUCOSE METER 2019-09-15 01:53:00 Test Item Value Reference Range Interpretation Comments POC-GLUCOSE METER 111 mg/dL 70-110 H : TESTED A T [facility] 6720 (BEAKER) (test code = [facility], 1538) 17352: General Office Dispatcher/Techni santana ID = [id number] for CE RVANTES, PRIYANKA POCT-GLUCOSE [id number] 00:23:00 Test Item Value Reference Range Interpretation Comments POC-GLUCOSE METER 140 mg/dL 70-110 H : TESTED A T [facility] 6720 (BEAKER) (test code = [facility], 1538) 91357: General Office Dispatcher/Techni santana ID = [id number] for CE RVANTES, PRIYANKA POCT-GLUCOSE [id number] 00:23:00 Test Item Value Reference Range Interpretation Comments POC-GLUCOSE METER 150 mg/dL 70-110 H : TESTED A T [facility] 6720 (BEAKER) (test code = [facility], 1538) 35542: General Office Dispatcher/Techni santana ID = [id number] for CE RVANTES, PRIYANKA POCT-GLUCOSE [id number] 00:23:00 Test Item Value Reference Range Interpretation Comments POC-GLUCOSE METER 129 mg/dL 70-110 H : TESTED A T [facility] 6720 (BEAKER) (test code = [facility], 1538) 08530: General Office Dispatcher/Techni santana ID = [id number] for PRIYANKA BOYKIN POCT-GLUCOSE [id number] 00:23:00 Test Item Value Reference Range Interpretation Comments POC-GLUCOSE METER 143 mg/dL 70-110 H : TESTED A T [facility] 6720 (BEAKER) (test code = KAVYA Bennett [facility], 1538) 75023: General Office Dispatcher/Techni santana ID = [id number] for PRIYANKA BOYKIN RAD, CHEST, 1 VIEW, NON [id number] 22:37:00Reason for exam:->Resp failure/ vent changes madeShould [...] pulmonary edema. Support lines are stable. Signed: Kulwant Ibrahim MDReport Verified Date/Time: 09/14/2019 22:37:51 [id number] 21:29:00 Test Item Value Reference Range Interpretation Comments PHOSPHORUS (BEAKER) (test code = 3.9 mg/dL 2.3-4.7 604) General Office Dispatcher ID - [id number] 21:29:00 Test Item Value Reference Range Interpretation Comments MAGNESIUM (BEAKER) (test code = 2.5 mg/dL 1.6-2.6 627) General Office Dispatcher ID - BSBASIC METABOLIC [id number] 21:29:00 Test Item Value Reference Range Interpretation [...] S NOT APPLICABLE FOR DIALYSIS PATIEN TS. General Office Dispatcher ID - BSLACTIC ACID, [id number] 21:22:00 Test Item Value Reference Range Interpretation Comments LACTATE BLOOD ARTERIAL (2) 1.4 mmol/L 0.5-2.2 (BEAKER) (test code = 2874) General Office Dispatcher ID - [id number] 21:21:00 Test Item Value Reference Range Interpretation [...] for patients wiht mechanical heart valves.BLOOD GAS, [id number] 21:16:00 Test Item Value Reference Range Interpretation [...] (test code = 1819) 36.0 % CALCIUM, [id number] 21:13:00 Test Item Value Reference Range Interpretation Comments CALCIUM IONIZED (BEAKER) (test 1.08 mmol/L 1.12-1.27 L code = 698) PH, BLOOD (BEAKER) (test code = 7.37 1810) OXYGEN SATURATION, [id number] 21:12:00 Test Item Value Reference Range Interpretation [...] (BEAKER) (test code = 413) LACTIC ACID, [id number] 19:08:00 Test Item Value Reference Range Interpretation Comments LACTATE BLOOD 1.0 mmol/L 0.5-2.2 Specimen sligh tly ARTERIAL (2) (BEAKER) hemoly zed (test code = 2874) General Office Dispatcher ID - DBPOCT-GLUCOSE [id number] 19:03:00 Test Item Value Reference Range Interpretation Comments POC-GLUCOSE METER 168 mg/dL 70-110 H : TESTED A T [facility] 6720 (BEAKER) (test code = KAVYA [place], 1538) 44925: General Office Dispatcher/Techni santana ID = [id number] for CE RVANTES, PRIYANKA BLOOD GAS, [id number] 18:57:00 Test Item Value Reference Range Interpretation [...] 1819) 40.0 % HGB/HCT (H&H) - STAT [id number] 18:57:00 Test Item Value Reference Range Interpretation Comments HEMOGLOBIN (BEAKER) (test code = 9.0 g/dL 12.0-15.0 L 410) HEMATOCRIT (BEAKER) (test code = 26.0 % 36.0-45.0 L 411) POCT-GLUCOSE [id number] 18:23:00 Test Item Value Reference Range Interpretation Comments POC-GLUCOSE METER 167 mg/dL 70-110 H : TESTED A T [facility] 6720 (BEAKER) (test code = [place], 1538) 95304: General Office Dispatcher/Techni santana ID = [id number] for KELSEA SANDS BASIC METABOLIC [id number] 17:34:00 Test Item Value Reference Range Interpretation [...] S NOT APPLICABLE FOR DIALYSIS PATIEN TS. General Office Dispatcher ID - [id number] 16:37:00 Test Item Value Reference Range Interpretation Comments POTASSIUM (BEAKER) 4.6 meq/L 3.5-5.1 Specimen slightly (test code = 379) hemolyzed General Office Dispatcher ID - [id number] 16:37:00 Test Item Value Reference Range Interpretation Comments GLUCOSE RANDOM (BEAKER) (test code 218 mg/dL 70-105 H = 652) General Office Dispatcher ID - [id number] 16:12:00 Test Item Value Reference Range Interpretation Comments MAGNESIUM (BEAKER) 2.5 mg/dL 1.6-2.6 Specimen slightly (test code = 627) hemolyzed General Office Dispatcher ID - [id number] 16:12:00 Test Item Value Reference Range Interpretation Comments PHOSPHORUS (BEAKER) 3.3 mg/dL 2.3-4.7 Specimen slightly (test code = 604) hemolyzed General Office Dispatcher ID - BSLACTIC ACID, [id number] 16:09:00 Test Item Value Reference Range Interpretation Comments LACTATE BLOOD 1.0 mmol/L 0.5-2.2 Specimen sligh tly ARTERIAL (2) (BEAKER) hemoly zed (test code = 2874) General Office Dispatcher ID - [id number] 16:05:00 Test Item Value Reference Range Interpretation Comments FIBRINOGEN LEVEL (BEAKER) (test 270 mg/dl 225-434 code = 658) [id number] 16:05:00 Test Item Value Reference Range Interpretation [...] INR is2.5-3.5 for patients wiht mechanical heart valves.[id number] 16:05:00 Test Item Value Reference Range Interpretation Comments PARTIAL THROMBOPLASTIN TIME 28.7 seconds 22.5-36.0 (BEAKER) (test code = 760) PROTHROMBIN [id number] 16:04:00 Test Item Value Reference Range Interpretation [...] mechanical heart valves.CBC W/PLT COUNT & AUTO [id number] 15:57:00 Test Item Value Reference Range Interpretation [...] = 2801) RAD, CHEST, 1 VIEW, NON [id number] 15:56:00Reason for exam:->Status post CV Surgery post [...] MDReport Verified Date/Time: 09/14/2019 15:56:42 Reading Location: [facility] Radiology Reading Room PLATELET [id number] 15:53:00 Test Item Value Reference Range Interpretation Comments PLATELET COUNT (BEAKER) (test code 95 K/CU MM 150-450 L = 756) General Office Dispatcher ID - [id number] NA-STAT [id number] 15:43:00 Test Item Value Reference Range Interpretation Comments SODIUM (BEAKER) (test code = 381) 136 meq/L 136-145 POTASSIUM-STAT [id number] 15:43:00 Test Item Value Reference Range Interpretation Comments POTASSIUM (BEAKER) (test code = 4.5 meq/L 3.6-5.5 379) HGB/HCT (H&H) - STAT [id number] 15:43:00 Test Item Value Reference Range Interpretation Comments HEMOGLOBIN (BEAKER) (test code = 10.2 g/dL 12.0-15.0 L 410) HEMATOCRIT (BEAKER) (test code = 30.0 % 36.0-45.0 L 411) BLOOD GAS, [id number] 15:43:00 Test Item Value Reference Range Interpretation [...] (test code = 1819) 50.0 % GLUCOSE-STAT [id number] 15:43:00 Test Item Value Reference Range Interpretation Comments GLUCOSE RANDOM (BEAKER) (test code 221 mg/dL 70-110 H = 652) BASIC METABOLIC [id number] 15:43:00 Test Item Value Reference Range Interpretation [...] S NOT APPLICABLE FOR DIALYSIS PATIEN TS. General Office Dispatcher ID - [id number] 15:42:00 Test Item Value Reference Range Interpretation Comments PHOSPHORUS (BEAKER) (test code = 3.9 mg/dL 2.3-4.7 604) General Office Dispatcher ID - BSOXYGEN SATURATION, [id number] 15:41:00 Test Item Value Reference Range Interpretation Comments O2 SATURATION (MEASURED) (BEAKER) 78.0 % (test code = 1455) CALCIUM, [id number] 15:41:00 Test Item Value Reference Range Interpretation Comments CALCIUM IONIZED (BEAKER) (test 1.15 mmol/L 1.12-1.27 code = 698) PH, BLOOD (BEAKER) (test code = 7.36 1810) [id number] 14:22:00 Test Item Value Reference Range Interpretation Comments ACTIVATED CLOTTING TIME 109 sec : 74 -137 seconds, (BEAKER) (test code = Baseli ne: TESTED AT 441) [address], [facility] 30: General Office Dispatcher/Techni santana ID = [id number] for NG VERÓNICA, VERONICA [id number] 14:22:00 Test Item Value Reference Range Interpretation Comments ACTIVATED CLOTTING TIME 621 sec : 74 -137 seconds, (BEAKER) (test code = Baseli ne: TESTED AT 441) [address], [facility] 30: General Office Dispatcher/Techni santana ID = [id number] for NG VERÓNICA, VERONICA [id number] 14:22:00 Test Item Value Reference Range Interpretation Comments ACTIVATED CLOTTING TIME 505 sec : 74 -137 seconds, (BEAKER) (test code = Baseli ne: TESTED AT 441) [address], [facility] 30: General Office Dispatcher/Techni santana ID = [id number] for NG VERÓNICA, VERONICA [id number] 14:22:00 Test Item Value Reference Range Interpretation Comments ACTIVATED CLOTTING TIME 406 sec : 74 -137 seconds, (BEAKER) (test code = Baseli ne: TESTED AT 441) [address], [facility] 30: General Office Dispatcher/Techni santana ID = [id number] for VERONICA JONES BLOOD GAS, [id number] 14:16:00 Test Item Value Reference Range Interpretation [...] code = 1819) 100.0 % SODIUM NA-STAT [id number] 14:16:00 Test Item Value Reference Range Interpretation Comments SODIUM (BEAKER) (test code = 381) 133 meq/L 136-145 L GLUCOSE-STAT [id number] 14:16:00 Test Item Value Reference Range Interpretation Comments GLUCOSE RANDOM (BEAKER) (test code 203 mg/dL 70-110 H = 652) HGB/HCT (H&H) - STAT [id number] 14:16:00 Test Item Value Reference Range Interpretation Comments HEMOGLOBIN (BEAKER) (test code = 8.8 g/dL 12.0-15.0 L 410) HEMATOCRIT (BEAKER) (test code = 26.0 % 36.0-45.0 L 411) POTASSIUM-STAT [id number] 14:15:00 Test Item Value Reference Range Interpretation Comments POTASSIUM (BEAKER) (test code = 4.8 meq/L 3.6-5.5 379) GLUCOSE-STAT [id number] 13:46:00 Test Item Value Reference Range Interpretation Comments GLUCOSE RANDOM (BEAKER) (test code 216 mg/dL 70-110 H = 652) HGB/HCT (H&H) - STAT [id number] 13:46:00 Test Item Value Reference Range Interpretation Comments HEMOGLOBIN (BEAKER) (test code = 7.2 g/dL 12.0-15.0 L 410) HEMATOCRIT (BEAKER) (test code = 21.0 % 36.0-45.0 L 411) BLOOD GAS, [id number] 13:46:00 Test Item Value Reference Range Interpretation [...] code = 1819) 100.0 % SODIUM NA-STAT [id number] 13:45:00 Test Item Value Reference Range Interpretation Comments SODIUM (BEAKER) (test code = 381) 135 meq/L 136-145 L POTASSIUM-STAT [id number] 13:45:00 Test Item Value Reference Range Interpretation Comments POTASSIUM (BEAKER) (test code = 5.0 meq/L 3.6-5.5 379) POTASSIUM-STAT [id number] 13:11:00 Test Item Value Reference Range Interpretation Comments POTASSIUM (BEAKER) (test code = 5.4 meq/L 3.6-5.5 379) BLOOD GAS, [id number] 13:11:00 Test Item Value Reference Range Interpretation [...] (test code = 1819) 60.0 % GLUCOSE-STAT [id number] 13:11:00 Test Item Value Reference Range Interpretation Comments GLUCOSE RANDOM (BEAKER) (test code 209 mg/dL 70-110 H = 652) SODIUM NA-STAT [id number] 13:11:00 Test Item Value Reference Range Interpretation Comments SODIUM (BEAKER) (test code = 381) 132 meq/L 136-145 L HGB/HCT (H&H) - STAT [id number] 13:11:00 Test Item Value Reference Range Interpretation Comments HEMOGLOBIN (BEAKER) (test code = 6.7 g/dL 12.0-15.0 L 410) HEMATOCRIT (BEAKER) (test code = 20.0 % 36.0-45.0 L 411) BLOOD GAS, [id number] 12:53:00 Test Item Value Reference Range Interpretation [...] (test code = 1819) 60.0 % GLUCOSE-STAT [id number] 12:53:00 Test Item Value Reference Range Interpretation Comments GLUCOSE RANDOM (BEAKER) (test code 207 mg/dL 70-110 H = 652) SODIUM NA-STAT [id number] 12:53:00 Test Item Value Reference Range Interpretation Comments SODIUM (BEAKER) (test code = 381) 132 meq/L 136-145 L HGB/HCT (H&H) - STAT [id number] 12:53:00 Test Item Value Reference Range Interpretation Comments HEMOGLOBIN (BEAKER) (test code = 6.2 g/dL 12.0-15.0 L 410) HEMATOCRIT (BEAKER) (test code = 18.0 % 36.0-45.0 L 411) POTASSIUM-STAT [id number] 12:52:00 Test Item Value Reference Range Interpretation Comments POTASSIUM (BEAKER) (test code = 4.9 meq/L 3.6-5.5 379) SODIUM NA-STAT [id number] 11:16:00 Test Item Value Reference Range Interpretation Comments SODIUM (BEAKER) (test code = 381) 137 meq/L 136-145 POTASSIUM-STAT [id number] 11:16:00 Test Item Value Reference Range Interpretation Comments POTASSIUM (BEAKER) (test code = 4.1 meq/L 3.6-5.5 379) BLOOD GAS, [id number] 11:16:00 Test Item Value Reference Range Interpretation [...] (test code = 1819) 100.0 % GLUCOSE-STAT [id number] 11:16:00 Test Item Value Reference Range Interpretation Comments GLUCOSE RANDOM (BEAKER) (test code 127 mg/dL 70-110 H = 652) HGB/HCT (H&H) - STAT [id number] 11:16:00 Test Item Value Reference Range Interpretation Comments HEMOGLOBIN (BEAKER) (test code = 9.8 g/dL 12.0-15.0 L 410) HEMATOCRIT (BEAKER) (test code = 29.0 % 36.0-45.0 L 411) COMPREHENSIVE METABOLIC [id number] 06:32:00 Test Item Value Reference Range Interpretation [...] S NOT APPLICABLE FOR DIALYSIS PATIEN TS. General Office Dispatcher ID - DANO [id number] 05:51:00 Test Item Value Reference Range Interpretation Comments MAGNESIUM (BEAKER) (test code = 2.1 mg/dL 1.6-2.6 627) General Office Dispatcher ID - DANO [id number] 05:50:00 Test Item Value Reference Range Interpretation Comments MAGNESIUM (BEAKER) (test code = 2.1 mg/dL 1.6-2.6 627) General Office Dispatcher ID - DANO MBASIC METABOLIC [id number] 05:50:00 Test Item Value Reference Range Interpretation [...] S NOT APPLICABLE FOR DIALYSIS PATIEN TS. [id number] 05:03:00 Test Item Value Reference Range Interpretation Comments PARTIAL THROMBOPLASTIN TIME 89.6 seconds 22.5-36.0 H (BEAKER) (test code = 760) CBC W/PLT COUNT & AUTO [id number] 04:53:00 Test Item Value Reference Range Interpretation [...] = 2801) CBC W/PLT COUNT & AUTO [id number] 04:50:00 Test Item Value Reference Range Interpretation [...] PERCENT (BEAKER) (test code = 2801) SARS-COV2/RT-PCR ([facility])2019-09-13 18:53:00 Test Item Value Reference Range Interpretation Comments SARS-COV2/RT-PCR (test Not Detected Not Detected, Negative code = 7290116) SARS-COV-[address] [facility] (test code = 2724897) Negative results do not preclude SARS-CoV-2 infection [...] of the Act.Fact Sheet for Healthcare Pro viders:https://www.[employer].com/Documents/Xpert%20Xpress%20SARS%20CoV-2/Fact%20Sh eets/302-3802%59FIAG-BVZ-1%20HEALTHCARE%20PROVIDERS%20FACT%20SHEET.pdfFact Sheet for Healthcare Patients:https://www.[employer]/Documents/Xpert%20Xpress%20SARS%20CoV-2/Fact%20Sheets/302-3801%20SARS-COV -2%20PATIENT%20FACT%20SHEET.pdfPerforming Laboratory:[facility] [place] [address].[place], [place] [address]OWZNRTRLMA [id number] 09:01:00 Test Item Value Reference Range Interpretation Comments HEMOGLOBIN A1C (BEAKER) (test code = 6.7 % 4.3-6.1 H 368) PLATELET AGGREGATION: FUNCTION [id number] 07:55:00 Test Item Value Reference Range Interpretation Comments [id number] Phil Mcguire M.D. (BEAKER) (test code = (electonic signature) 5178) PLATELET COUNT AGG 160 K/CU MM 150-450 (BEAKER) (test code = 5103) ADP (BEAKER) (test code 71 % 62-100 = 2501) PLATELET RICH 179 k/cu mm 200-300 L PLASMA(BEAKER) (test code = 0405) PLATELET FUNCTION SCREEN Normal aggregation INTERPRETATION (BEAKER) results with ADP. No (test code = 0627) evidence of platelet dysfunction or P2Y12 inhibitor effect. Platelet Function Screen results may be falsely low with platelet counts<75,000/cu mm.General Office Dispatcher ID- [id number] AGGREGATION: FUNCTION SCREEN 2019-09-13 07:53:00 Test Item Value Reference Range Interpretation Comments [id number] Phil Mcguire M.D. (BEAKER) (test code = (electonic signature) 3348) PLATELET COUNT AGG 178 K/CU MM 150-450 (BEAKER) (test code = 2656) ADP (BEAKER) (test code 55 % 62-100 L = 4654) PLATELET RICH 192 k/cu mm 200-300 L PLASMA(BEAKER) (test code = 2134) PLATELET FUNCTION SCREEN Decreased aggregation INTERPRETATION (BEAKER) with ADP which (test code = 4525) indicates platelet dysfunction that may be due to medication effect, uremia, or other platelet function disorders. Clinical correlation is required. Platelet Function Screen results may be falsely low with platelet counts<75,000/cu mm.General Office Dispatcher ID- [id number] 07:33:00 Test Item Value Reference Range Interpretation Comments PARTIAL THROMBOPLASTIN TIME 85.7 seconds 22.5-36.0 H (BEAKER) (test code = 760) [id number] 06:04:00 Test Item Value Reference Range Interpretation Comments MAGNESIUM (BEAKER) (test code = 2.1 mg/dL 1.6-2.6 627) General Office Dispatcher ID - DANO MBASIC METABOLIC [id number] 06:04:00 Test Item Value Reference Range Interpretation [...] S NOT APPLICABLE FOR DIALYSIS PATIEN TS. General Office Dispatcher ID - DANO MLIPID [id number] 06:04:00 Test Item Value Reference Range Interpretation Comments TRIGLYCERIDES (FRANDY) (test code = 83 mg/dL 540) CHOLESTEROL [...] Borderline 130-159 High 160-189 Very High >=190 General Office Dispatcher ID - DANO MPROTHROMBIN [id number] 05:20:00 Test Item Value Reference Range Interpretation Comments PROTIME (FRANDY) (test code = 15.0 seconds 11.9-14.2 H 759) INR (FRANDY) (test code = 370) 1.2 <=5.9 Effective 09/03/2018: PT Reference Range ChangeNew: 11.9-14.2 Previous: 11.7- 14.7RECOMMENDED COUMADIN/WARFARIN INR THERAPY RANGESSTANDARD DOSE: 2.0-3.0 Includes: PROPHYLAXIS for venous thrombosis, systemic embolization; TREATMENT for venous thrombosis and/or pulmonary embolus.HIGH RISK: Target INR is2.5-3.5 for patients wiht mechanical heart valves.CBC W/PLT COUNT & AUTO [id number] 05:01:00 Test Item Value Reference Range Interpretation Comments WHITE BLOOD CELL COUNT (SHAHIDAAKER) 7.6 K/ L 3.5-10.5 (test code = 775) RED BLOOD CELL COUNT (SHAHIDAAKER) 3.07 M/ L 3.93-5.22 L (test code [...] = 2801) RAD, CHEST, 1 VIEW, NON [id number] 01:56:00Reason for exam:->pre op screenShould this be [...] abnormality. Impression: No active cardiopulmonary abnormality. Signed: Kulwant Ibrahim MDReport Verified Date/Time: 09/13/2019 01:56:23 [id number] 18:35:00 Test Item Value Reference Range Interpretation Comments PARTIAL THROMBOPLASTIN TIME 81.1 seconds 22.5-36.0 H (BEAKER) (test code = 760) TROPONIN [id number] 11:43:00 Test Item Value Reference Range Interpretation [...] failure, acidosis, acute neurological disease, and persistent tachyarrhythmia.General Office Dispatcher ID - CHAO [id number] 11:25:00 Test Item Value Reference Range Interpretation Comments PARTIAL THROMBOPLASTIN TIME 75.5 seconds 22.5-36.0 H (BEAKER) (test code = 760) TROPONIN [id number] 04:03:00 Test Item Value Reference Range Interpretation Comments TROPONIN I (BEAKER) (test code = 1.70 ng/mL 0.00-0.03 HH 397) Troponin I (TnI) [...] failure, acidosis, acute neurological disease, and persistent tachyarrhythmia.General Office Dispatcher ID - SAURABH [id number] 03:47:00 Test Item Value Reference Range Interpretation Comments PARTIAL THROMBOPLASTIN TIME 26.9 seconds 22.5-36.0 (BEAKER) (test code = 760) 6 hours after starting heparin infusion and as indicated per [facility]2019-09-12 03:31:00 Test Item Value Reference [...]
[2021-02-19 19:18] LABS: Absolute Lymphocytes (CBC) 1.2 K/uL (0.7-4.9); Basophils % 0.6 % (0-1.3); Hematocrit 36.1 % (36.0-45.0); Lymphocytes % 14.1 % (15.3-44.8); MPV 8.4 fL (7.6-11.3); RBC Red Blood Cell Count 3.95 M/uL (3.86-4.86)
[2021-02-19 19:23] LABS: Protime INR 1.02
[2021-02-19 19:31] LABS: Albumin 3.5 g/dL (3.4-5.0); BUN Blood Urea Nitrogen 27 mg/dL (7-18); Bicarbonate 23 mmol/L (21-32); Lipase 262 U/L (73-393); Magnesium 2.4 mg/dL (1.8-2.4); Potassium 4.1 mmol/L (3.5-5.1); Sodium Level 145 mmol/L (136-145)
[2021-02-19 19:39] LABS: ALT/SGPT 21 U/L (12-78); AST/SGOT 16 U/L (15-37); Alkaline Phosphatase 14 U/L (45-117); Bilirubin Direct < 0.1 mg/dL (0-0.2); Bilirubin Total 0.2 mg/dL (0.2-1.0); Glucose Level 81 mg/dL (74-106); NT PRO-BNP 1537 pg/mL (<450); Protein, Total 7.2 g/dL (6.4-8.2); Troponin (Emerg Dept Use Only) < 0.02 ng/mL (0.0-0.045)
[2021-02-19] MEDS ORDERED: HYDROCODONE/APAP 10/325 TAB ONE (19:55)
[2021-02-19] MEDS ORDERED: NA CHLORIDE 0.9% 1,000 ML ONE (19:56)
--- NOTE | 2021-02-19 20:38 | RAD REPORT ---
EXAM DESCRIPTION: RAD - Chest Single View - 02/19/2021 7:47 pm CLINICAL HISTORY: CONGESTION COMPARISON: Chest Pa And Lat (2 Views) dated 02/10/2021; Chest Single View dated 07/24/2020; Chest Sin gle View dated 10/16/2019; Chest Single View dated 10/12/2019 FINDINGS: Lines: None. Lungs: No evidence of edema or pneumonia. Pleural: No significant pleural effusions or pneumothorax. Cardiac: The heart size is within normal limits. Bones: No acute fractures. Sternotomy. Other: IMPRESSION: No acute cardiopulmonary disease.
--- NOTE | 2021-02-19 21:04 | EDPHYS ---
Physician Documentation [facility] Name: Yeison Ellis Age: 80 yrs Sex: Female : 1940 Arrival Date: 02/19/2021 Time: 18:57 Bed 23 Private MD: ED Physician Osman Chin HPI: 02/19 19:27 This 80 yrs old Female presents to ER via EMS with complaints of hypoglycemia ma2 . 19:27 Onset: The symptoms/episode began/occurred gradually, 1 day(s) ago. Associated signs ma2 and symptoms: Pertinent negatives: ataxia, chest pain, diaphoresis, head injury, seizure, syncope. Severity of symptoms: At their worst the symptoms were severe in the emergency department the symptoms have resolved. The patient has not experienced similar symptoms in the past, Patient has been prescribed glyburide for diabetes, a week ago, has been having low blood sugar for few days, found unconscious this morning. Last time she took glyburide was this morning.. Historical: - Allergies: 19:04 Darvocet-N 100; vg1 19:04 egg; vg1 19:04 EGG/POULTRY; vg1 19:04 Iodine; vg1 19:04 propoxyphene napsylate; vg1 19:04 Mhinwmr-Qgx-Lfw Reductase Inhibitor; vg1 - Home Meds: 19:04 Altace Oral once daily [Active]; Metoprolol Tartrate Oral 2 times per day [Active]; vg1 Plavix 75 mg Oral tab 1 tab once daily [Active]; gabapentin oral [Active]; Doxycycline Oral [Active]; - PMHx: 19:04 Arthritis; Back pain; Chronic pain; Hypertension; Kidney stones; Myocardial infarction; vg1 neuropathy; Rheumatoid Arthritis; - PSHx: 19:06 Stented artery; vg1 - Immunization history:: Adult Immunizations up to date, Client reports receiving the 2nd dose of the Covid vaccine. - Social history:: Smoking status: Patient denies any tobacco usage or history of. Patient/guardian denies using alcohol, street drugs, The patient lives with family. - Family history:: not pertinent. ROS: 19:27 Constitutional: Negative for fever, chills, and weight loss. ma2 19:27 All other systems are negative. Exam: 19:27 Constitutional: This is a well developed, well nourished patient who is awake, alert, ma2 and in no acute distress. Head/Face: Normocephalic, atraumatic. Eyes: Pupils equal round and reactive to light, extra-ocular motions intact. Lids and lashes normal. Conjunctiva and sclera are non-icteric and not injected. Cornea within normal limits. Periorbital areas with no swelling, redness, or edema. ENT: Nares patent. No nasal discharge, no septal abnormalities noted. Tympanic membranes are normal and external auditory canals are clear. Oropharynx with no redness, swelling, or masses, exudates, or evidence of obstruction, uvula midline. Mucous membranes moist. Neck: Trachea midline, no thyromegaly or masses palpated, and no cervical lymphadenopathy. Supple, full range of motion without nuchal rigidity, or vertebral point tenderness. No Meningismus. Chest/axilla: Normal chest wall appearance and motion. Nontender with no deformity. No lesions are appreciated. Cardiovascular: Regular rate and rhythm with a normal S1 and S2. No gallops, murmurs, or rubs. Normal PMI, no JVD. No pulse deficits. Respiratory: Lungs have equal breath sounds bilaterally, clear to auscultation and percussion. No rales, rhonchi or wheezes noted. No increased work of breathing, no retractions or nasal flaring. Abdomen/GI: Soft, non-tender, with normal bowel sounds. No distension or tympany. No guarding or rebound. No evidence of tenderness throughout. Back: No spinal tenderness. No costovertebral tenderness. Full range of motion. Skin: Warm, dry with normal turgor. Normal color with no rashes, no lesions, and no evidence of cellulitis. MS/ Extremity: Pulses equal, no cyanosis. Neurovascular intact. Full, normal range of motion. Neuro: Awake and alert, GCS 15, oriented to person, place, time, and situation. Cranial nerves II-XII grossly intact. Motor strength 5/5 in all extremities. Sensory grossly intact. Cerebellar exam normal. Normal gait. Vital Signs: 18:46 BP 115 / 74; Pulse 87; Resp 22; Temp 97.9; Pulse Ox 100% ; Weight 70.31 kg; Height 5 vg1 ft. 3 in. (160.02 cm); Pain 9/10; 22:45 BP 114 / 55; Pulse 59; Resp 12; Temp 98.5; Pulse Ox 100% on R/A; Pain 0/10; fu 18:46 Body Mass Index 27.46 (70.31 kg, 160.02 cm) vg1 MDM: 19:27 Differential diagnosis: generalized weakness, hypovolemia, near-syncope, TIA. [facility] 21:01 Data reviewed: vital signs, nurses notes. Counseling: I had a detailed discussion with [facility] the patient and/or guardian regarding: the historical points, exam findings, and any diagnostic results supporting the discharge/admit diagnosis, the presence of at least one elevated blood pressure reading (>120/80) during this emergency department visit, lab results. Counseling: I had a detailed discussion with the patient and/or guardian regarding: radiology results, the need for outpatient follow up. Response to treatment: the patient's symptoms have markedly improved after treatment. 21:03 Patient medically screened. [facility] 02/19 19:12 Order name: Basic Metabolic Panel; Complete Time: 20:[address] [facility] 02/19 19:12 Order name: CBC with Diff; Complete Time: 19:[address] [facility] 02/19 19:12 Order name: LFT's; Complete Time: 20:[address] [facility] 02/19 19:12 Order name: Magnesium; Complete Time: 20:[address] [facility] 02/19 19:12 Order name: NT PRO-BNP; Complete Time: 20:[address] [facility] 02/19 19:12 Order name: PT-INR; Complete Time: 19:[address] [facility] 02/19 19:12 Order name: Troponin (emerg Dept Use Only); Complete Time: 20:[address] [facility] 02/19 19:12 Order name: Lipase; Complete Time: 20:[address] [facility] 02/19 19:18 Order name: Glucose, Ancillary Testing; Complete Time: 19:26 [facility] 02/19 19:59 Order name: COVID-19 SARS RT PCR (Document "Date of Onset" if Symptomatic) [facility] 02/20 00:01 Order name: Glucose, Ancillary Testing; Complete Time: 02:28 [facility] 02/20 04:13 Order name: CBC with Automated Diff [facility] 02/20 04:35 Order name: Comprehensive Metabolic Panel [facility] 02/20 04:35 Order name: Lipid Profile [facility] 02/19 19:12 Order name: XRAY Chest (1 view); Complete Time: 20:[address] [facility] 02/19 19:12 Order name: EKG; Complete Time: 19:[address] [facility] 02/19 19:12 Order name: Cardiac monitoring; Complete Time: 20:[address] [facility] 02/19 19:12 Order name: EKG - Nurse/Tech; Complete Time: 20:[address] [facility] 02/19 19:12 Order name: IV Saline Lock; Complete Time: 23:[address] [facility] 02/19 19:12 Order name: Labs collected and sent; Complete Time: 23:[address] [facility] 02/19 19:12 Order name: O2 Per Protocol; Complete Time: 23:[address] [facility] 02/19 19:12 Order name: O2 Sat Monitoring; Complete Time: 23:[address] [facility] 02/20 04:35 Order name: T4 Free [facility] 02/20 04:35 Order name: Thyroid Stimulating Hormone [facility] 02/20 04:37 Order name: Hemoglobin A1c [facility] 02/20 07:59 Order name: Glucose, Ancillary Testing [facility] Administered Medications: 20:16 Drug: Lowell (HYDROcodone-acetaminophen) 10 mg-325 mg 1 tabs Route: PO; fu 21:20 Follow up: Response: Pain is decreased fu 20:32 Drug: NS 0.9% 1000 ml Route: IV; Rate: 1 bolus; Site: right antecubital; em 23:23 Follow up: Response: No adverse reaction; IV Status: Completed infusion; IV Intake: fu 1000ml 21:39 Drug: Octreotide 50 mcg Route: Sub-Q; Site: abdomen; fu 22:30 Follow up: Response: No adverse reaction fu Disposition Summary: 02/19/21 21:03 Hospitalization Ordered Hospitalization Status: Observation ma2 Provider: Juan J Dominguez ma2 Condition: Stable ma2 Problem: new ma2 Symptoms: are unchanged ma2 Bed/Room Type: Standard ma2 Location: [facility] ER HOLD(02/19/21 21:51) Room Assignment: ERHOLD-(02/19/21 21:51) cg Diagnosis - Other hypoglycemia ma2 Forms: - Medication Reconciliation Form ma2 - SBAR form ma2 Signatures: Dispatcher [employer] EDDelgado Junior RN RN em Attema, Lee, LANCE CREWMEMBER/MLRS SERGEANT-C LANCE CREWMEMBER/MLRS SERGEANT-Cla1 Kiarra Lockhart RN RN Alan Anaya RN Osman Machuca MD MD ma2 Richy, PIEDAD Strong RN vg1 Corrections: (The following items were deleted from the chart) 21:03 Telemetry/MedSurg (observation) [facility] 21:03 [facility]
--- NOTE | 2021-02-19 21:04 | ER ---
Nurse's Notes [facility] Name: Yeison Ellis Age: 80 yrs Sex: Female : 1940 Arrival Date: 02/19/2021 Time: 18:57 Bed 23 Private MD: Diagnosis: Other hypoglycemia Presentation: 02/19 18:46 Chief complaint: Patient states: Started dealing with low blood sugar since yesterday. vg1 Stated ate oatmeal this morning and homemade stew for lunch. States took a nap and woke up in a 'puddle of sweat'. States ISHMAEL leg and back pain. States had a stent placed about a week ago and ever since the procedure 'has not been feeling well'. EMS states: Called out for low blood sugar. On scene pt BG was 27; pt was given 1 tube of oral glucose and BG went up to 64 and within minutes BG went back down to 46. Pt was given a second tube of oral glucose and about 15 minutes ago pt BG was 77. 18:46 Coronavirus screen: Vaccine status: Patient reports receiving the 2nd dose of the covid vg1 vaccine. Client denies travel out of the [place] in the last 14 days. Ebola Screen: Patient negative for fever greater than or equal to 101.5 degrees Fahrenheit, and additional compatible Ebola Virus Disease symptoms. Initial Sepsis Screen: Does the patient meet any 2 criteria? RR > 20 per min. Does the patient have a suspected source of infection? No. Patient's initial sepsis screen is negative. Risk Assessment: Do you want to hurt yourself or someone else? Patient reports no desire to harm self or others. Onset of symptoms was February 19, 2021. 18:46 Method Of Arrival: EMS: [facility] vg1 18:46 Acuity: ALEXIS 3 vg1 Triage Assessment: 19:04 General: Appears in no apparent distress. uncomfortable, Behavior is calm, cooperative. vg1 Pain: Complains of pain in back, right leg and left leg Pain currently is 9 out of 10 on a pain scale. Neuro: Level of Consciousness is awake, alert, obeys commands, Oriented to person, place, time, situation. Derm: Skin is clammy. Historical: - Allergies: 19:04 Darvocet-N 100; vg1 19:04 egg; vg1 19:04 EGG/POULTRY; vg1 19:04 Iodine; vg1 19:04 propoxyphene napsylate; vg1 19:04 Ibaybbh-Uxj-Fbb Reductase Inhibitor; vg1 - Home Meds: 19:04 Altace Oral once daily [Active]; Metoprolol Tartrate Oral 2 times per day [Active]; vg1 Plavix 75 mg Oral tab 1 tab once daily [Active]; gabapentin oral [Active]; Doxycycline Oral [Active]; - PMHx: 19:04 Arthritis; Back pain; Chronic pain; Hypertension; Kidney stones; Myocardial infarction; vg1 neuropathy; Rheumatoid Arthritis; - PSHx: 19:06 Stented artery; vg1 - Immunization history:: Adult Immunizations up to date, Client reports receiving the 2nd dose of the Covid vaccine. - Social history:: Smoking status: Patient denies any tobacco usage or history of. Patient/guardian denies using alcohol, street drugs, The patient lives with family. - Family history:: not pertinent. Screenin:06 Abuse screen: Denies threats or abuse. Nutritional screening: No deficits noted. fu Tuberculosis screening: No symptoms or risk factors identified. Fall Risk None identified. Assessment: 19:12 General: Appears in no apparent distress. Behavior is calm, cooperative, appropriate fu for age, Denies fever, feeling ill, fatigue, chills. Pain: Complains of pain in left leg and right leg and back Pain does not radiate. Pain currently is 9 out of 10 on a pain scale. Pain began years ago. Neuro: Level of Consciousness is awake, alert, obeys commands, Oriented to person, place, time, situation, Alternative Medicine Practitioner are Moves all extremities. Speech is normal, Facial symmetry appears normal. Cardiovascular: Denies chest pain, nausea, vomiting. Respiratory: Airway is patent Respiratory effort is even, unlabored, Respiratory pattern is regular. GI: No signs and/or symptoms were reported involving the gastrointestinal system. : No signs and/or symptoms were reported regarding the genitourinary system. EENT: No signs and/or symptoms were reported regarding the EENT system. Derm: Skin is intact, Skin is pink, warm \T\ dry. 20:00 Reassessment: Patient and/or family updated on plan of care and expected duration. Pain fu level reassessed. Patient is alert, oriented x 3, equal unlabored respirations, skin warm/dry/pink. 21:00 Reassessment: Patient and/or family updated on plan of care and expected duration. Pain fu level reassessed. Patient is alert, oriented x 3, equal unlabored respirations, skin warm/dry/pink. Patient states feeling better. 22:00 Reassessment: Patient and/or family updated on plan of care and expected duration. Pain fu level reassessed. Patient is alert, oriented x 3, equal unlabored respirations, skin warm/dry/pink. 23:00 Reassessment: Patient and/or family updated on plan of care and expected duration. Pain fu level reassessed. Patient is alert, oriented x 3, equal unlabored respirations, skin warm/dry/pink. Vital Signs: 18:46 BP 115 / 74; Pulse 87; Resp 22; Temp 97.9; Pulse Ox 100% ; Weight 70.31 kg; Height 5 vg1 ft. 3 in. (160.02 cm); Pain 9/10; 22:45 BP 114 / 55; Pulse 59; Resp 12; Temp 98.5; Pulse Ox 100% on R/A; Pain 0/10; fu 18:46 Body Mass Index 27.46 (70.31 kg, 160.02 cm) vg1 ED Course: 18:57 Patient arrived in ED. eb 19:03 Inserted saline lock: 20 gauge in right antecubital area, using aseptic technique. 3 Blood collected. 19:03 Initial lab(s) drawn, by ks, sent to lab. 3 19:04 Triage completed. vg1 19:04 Arm band placed on. vg1 19:05 Alan Anaya, PIEDAD is Primary Nurse. fu 19:10 Osman Chin MD is Attending Physician. ma2 19:47 XRAY Chest (1 view) In Process Unspecified. EDMS 21:02 Juan J Dominguez MD is Hospitalizing Provider. ma2 23:00 Patient has correct armband on for positive identification. Bed in low position. Call fu light in reach. Side rails up X2. awake overnight monitor on. Pulse ox on. NIBP on. 23:20 No provider procedures requiring assistance completed. Patient admitted, IV remains in fu place. Administered Medications: 20:16 Drug: Norman (HYDROcodone-acetaminophen) 10 mg-325 mg 1 tabs Route: PO; fu 21:20 Follow up: Response: Pain is decreased fu 20:32 Drug: NS 0.9% 1000 ml Route: IV; Rate: 1 bolus; Site: right antecubital; em 23:23 Follow up: Response: No adverse reaction; IV Status: Completed infusion; IV Intake: fu 1000ml 21:39 Drug: Octreotide 50 mcg Route: Sub-Q; Site: abdomen; fu 22:30 Follow up: Response: No adverse reaction fu Intake: 23:23 IV: 1000ml; Total: 1000ml. fu Outcome: 21:03 Decision to Hospitalize by Provider. ma2 23:21 Admitted to ER Hold. Please see [facility] for further documentation. fu 23:21 Condition: good 23:21 Instructed on the need for admit, Demonstrated understanding of instructions. 02/20 10:10 Patient left the ED. bd Signatures: Dispatcher [employer] EDMS Thelma Jimenes Edgar, RN RN Deepthi Olmstead [facility] Alan Anaya RN Osman Machuca MD MD ma2 Botello, Elizabeth eb Garcia, Victoria RN RN vg1 Corrections: (The following items were deleted from the chart) 02/19 19:07 18:46 Chief complaint: Patient states: Started dealing with low blood sugar since vg1 yesterday. Stated ate oatmeal this morning and homemade stew for lunch. States took a nap and woke up in a 'puddle of sweat'. States ISHMAEL leg and back pain. EMS states: Called out for low blood sugar. On scene pt BG was 27; pt was given 1 tube of oral glucose and BG went up to 64 and within minutes BG went back down to 46. Pt was given a second tube of oral glucose and about 15 minutes ago pt BG was 77. vg1
--- NOTE | 2021-02-19 21:31 | P.HP ---
Certification for Inpatient Patient admitted to: Observation With expected LOS: <2 Midnights Patient will require the following post-hospital care: None Practitioner: I am a practitioner with admitting privileges, knowledge of patient current condition, hospital course, and medical plan of care. Services: Services provided to patient in accordance with Admission requirements found in Title 42 Section 412.3 of the Code of Federal Regulations Patient History Date of Service: 02/19/21 Primary Care Provider: None Reason for admission: Hypoglycemia History of Present Illness: 80-year-old female with history of diabetes mellitus type 2, hypertension, CAD, RA presents emergency department for syncope/hyperglycemia. Patient recently initiated on glyburide 5 mg p.o. daily a few days ago by her health promotion educator ever since then patient has difficulty managing her blood sugars with them running low between 40 and 80 at home. Patient took her last dose this morning around 0600 blood sugars have been running low today at home woke up from a nap covered in sweat and altered blood sugar was found to be 40 patient was brought to the emergency department for evaluation. Patient's blood sugar in the emergency department running around 80, patient is also eating and tolerating diet at this time, ED provider wishes to admit to observation for hypoglycemia given sulfonylurea ingestion and persistent hypoglycemia. Allergies iodine Allergy (Verified 02/10/21 13:48) Itching/Hives/Rash propoxyphene napsylate [From Darvocet-N] Adverse Reaction (Intermediate, Verified 02/10/21 13:48) Nausea/Vomiting cauliflower Adverse Reaction (Verified 02/10/21 13:48) Nausea/Vomiting egg Adverse Reaction (Verified 02/10/21 13:48) Nausea/Vomiting Home Medications: Aspirin [Pura Chewable Aspirin] 81 mg PO DAILY 09/16/13 Clopidogrel Bisulfate [Plavix*] 75 mg PO DAILY #0 tablet 09/19/13 Atorvastatin Calcium 20 mg PO BEDTIME 10/12/19 Lisinopril [Zestril] 1 tab PO DAILY 10/12/19 Metformin HCl 1 tab PO BID 10/12/19 Metoprolol Tartrate 25 mg PO BID 10/12/19 Pantoprazole [Protonix Tab*] 1 tab PO DAILY 10/12/19 Lidocaine 4% Patch [Lidoderm 5% Patch*] 1 patch TOP DAILY #30 patch 10/16/19 Famotidine 20 mg PO BID 07/25/20 Hydrocodone 10/APAP 325 [Thurmond 10/325*] 1 tab PO Q4HR PRN 07/25/20 Gabapentin [Neurontin*] 100 mg PO TID #90 cap 07/26/20 Cyanocobalamin/Cobamamide [Vitamin B-12 5,000 Mcg Tab Sl] 1 each SL DAILY #30 tab.subl 07/27/20 Nitrofurantoin Macrocrystal [Nitrofurantoin] 50 mg PO BID #28 capsule 07/27/20 predniSONE [Prednisone*] 20 mg PO BID #11 tab 07/27/20 - Past Medical/Surgical History Diabetic: No -: Hypertension -: Diabetes mellitus type 2 -: CAD -: Chronic diastolic CHF -: Severe PAD -: Arthritis -: Neuropathy -: Chronic back pain -: Cardiac Stents CABG -: Endoscopy -: Tubal Ligation -: Hysterectomy -: L knee repair -: galbladder removed -: hemorrhoidectomy -: clots in legs removed Psychosocial/ Personal History: Patient lives at home with grandchildren, is retired - Family History Brother -: Heart disease, Hypertension Father -: Heart disease, Hypertension - Social History Smoking Status: Never smoker Alcohol use: No CD- Drugs: No Caffeine use: Yes Place of Residence: Home Review of Systems 10-point ROS is otherwise unremarkable General: Weakness, Malaise Physical Examination - Physical Exam General: Alert, In no apparent distress, Oriented x3 HEENT: Atraumatic, PERRLA, Mucous membr. moist/pink, EOMI, Sclerae nonicteric Neck: Supple, 2+ carotid pulse no bruit, No LAD, Without JVD or thyroid abnormality Respiratory: Clear to auscultation bilaterally, Normal air movement Cardiovascular: Regular rate/rhythm, Normal S1 S2 Gastrointestinal: Normal bowel sounds, No tenderness Musculoskeletal: No tenderness Integumentary: No rashes Neurological: Normal gait, Normal speech, Normal strength at 5/5 x4 extr, Normal tone, Normal affect Lymphatics: No axilla or inguinal lymphadenopathy - Studies Laboratory Data (last 24 hrs) 02/19/21 19:03: PT 11.7, INR 1.02 02/19/21 19:03: WBC 8.80 D, Hgb 12.0, Hct 36.1, Plt Count 201 02/19/21 19:03: Sodium 145, Potassium 4.1, BUN 27 H, Creatinine 1.26, Glucose 8 1, Magnesium 2.4, Total Bilirubin 0.2, AST 16, ALT 21, Alkaline Phosphatase 14 L, Lipase 262 Assessment and Plan - Plan Assessment: Diabetes mellitus type 2 with persistent hypoglycemia associated with sulfonylurea use Chronic diastolic congestive heart failure Severe PAD CAD status post CABG/multiple stents RA Hypertension Chronic pain Plan: Diabetes mellitus type 2 with persistent hypoglycemia associated with sulfonylurea use: Continue with every 4 hours Accu-Cheks, hold sulfonylurea. Patient given octreotide 50 mg subcu x1, will provide additional doses as necessary. Will check A1c determine need for further medications, patient has been intolerant of Metformin in the past due to GI symptoms. Chronic diastolic congestive heart failure: Stable at this time patient does not appear significantly overloaded Severe PAD: Obtain continue home medication CAD status post CABG/multiple stents: Stable continue home meds, monitor on, trend RA: Continue home medications including Thurmond Hypertension: Continue home medication Chronic pain: Continue home medication including Thurmond 10 mg DVT PPX: Lovenox Code status: Full Discharge Plan: Home Plan to discharge in: 24 Hours - Advance Directives Does patient have a Living Will: No Does patient have a Durable POA for Healthcare: No - Code Status/Comfort Care Code Status Assessed: Yes (Full code) Critical Care: No Time Spent Managing Pts Care (In Minutes): 55
[2021-02-19] MEDS ORDERED: OCTREOTIDE ACETATE 100 MCG/ML ONE (21:32)
[2021-02-19] MEDS ORDERED: ONDANSETRON 4 MG/2 ML VIAL IV PRN (23:36)
[2021-02-20] MEDS ORDERED: HYDROCODONE/APAP 10/325 TAB ONE ×2 (00:16→08:58)
[2021-02-20] MEDS: HYDROCODONE/APAP 10/325 TAB PO PRN ×2 (00:24→09:01)
[2021-02-20 04:11] LABS: Basophils % 0.7 % (0-1.3); Hematocrit 33.7 % (36.0-45.0); Lymphocytes % 29.5 % (15.3-44.8); MPV 8.4 fL (7.6-11.3); RBC Red Blood Cell Count 3.68 M/uL (3.86-4.86)
[2021-02-20 04:31] LABS: ALT/SGPT 16 U/L (12-78); AST/SGOT 15 U/L (15-37); Albumin 2.9 g/dL (3.4-5.0); BUN Blood Urea Nitrogen 25 mg/dL (7-18); Bicarbonate 21 mmol/L (21-32); Bilirubin Total 0.4 mg/dL (0.2-1.0); Glucose Level 150 mg/dL (74-106); HDL Cholesterol 48 mg/dL (40-60); LDL Cholesterol, Calculated 44 (<130); Potassium 4.6 mmol/L (3.5-5.1); Sodium Level 144 mmol/L (136-145); Thyroid Stimulating Hormone 0.358 uIU/mL (0.360-3.740)
[2021-02-20 04:35] LABS: Alkaline Phosphatase < 10 U/L (45-117)
[2021-02-20 08:53] VITALS: BMI 28.0
[2021-02-20 08:55] VITALS: BP 138/67; TEMP 97.7
[2021-02-20] MEDS ORDERED: ENOXAPARIN 40 MG/0.4 ML SQ SCH (09:00)
--- NOTE | 2021-02-20 14:15 | P.DS ---
Admission Date: 02/19/21 Discharge Date: 02/20/21 Primary Care Provider: None Disposition: ROUTINE DISCHARGE Discharge Condition: GOOD Reason for Admission: Hypoglycemia Procedures: Problem list Diabetes mellitus type 2 with persistent hypoglycemia associated with sulfonylurea use Chronic diastolic congestive heart failure Severe PAD CAD status post CABG/multiple stents RA Hypertension Chronic pain Brief History of Present Illness: 80-year-old female, PMH: Non-insulin diabetes mellitus type 2, HTN, CAD, RA. Presented to ED for near syncope/hypoglycemia. 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 She states her blood sugar levels have been running between 4080. She took a nap and woke up covered in sweats, found to have blood sugar level of 40 at home. Her granddaughter brought patient to the ER for further evaluation. She denies any recent illness, no fever/chills, no nausea/vomiting. She is able to eat. On arrival to ED, her blood glucose was in the 80s and she was tolerating diet. Patient was brought in for observation for this hypoglycemia. Hospital Course: Patient was given octreotide 50 mg subcutaneous x1. Her diabetic medications were held, and she was monitored overnight without any need for IV dextrose/fluids. She was tolerating p.o. without any issue and able to maintain blood glucose levels greater than 90 on her own. On the following morning, her blood glucose was 150. She was feeling like her normal self, ambulating, voiding without issue. She was discharged home, advised to discontinue glyburide. Continue with blood glucose checks at home, keeping a diary, and to follow-up with her PCP within 1 week. Hemoglobin A1c was checked and noted to be at 6.5, improved from June of this year: 6.7. Vital Signs/Physical Exam: Temp Pulse Resp BP Pulse Ox 97.7 F 73 19 138/67 99 02/20/21 08:00 02/20/21 08:00 02/20/21 09:01 02/20/21 08:00 02/20/21 09:01 General: Alert, In no apparent distress, Oriented x3 HEENT: Mucous membr. moist/pink, Sclerae nonicteric Respiratory: Clear to auscultation bilaterally, Normal air movement Cardiovascular: No edema, Regular rate/rhythm Gastrointestinal: Soft and benign, Non-distended, No tenderness Musculoskeletal: No tenderness Integumentary: No significant lesion Neurological: Normal speech, Normal affect Laboratory Data at Discharge: WBC 6.70 K/uL (4.3-10.9) D 02/20/21 03:44 Hgb 11.0 g/dL (12.0-15.0) L 02/20/21 03:44 Hct 33.7 % (36.0-45.0) L 02/20/21 03:44 Plt Count 183 K/uL (152-406) 02/20/21 03:44 PT 11.7 SECONDS (9.5-12.5) 02/19/21 19:03 INR 1.02 02/19/21 19:03 Sodium 144 mmol/L (136-145) 02/20/21 03:44 Potassium 4.6 mmol/L (3.5-5.1) 02/20/21 03:44 BUN 25 mg/dL (7-18) H 02/20/21 03:44 Creatinine 1.05 mg/dL (0.55-1.3) 02/20/21 03:44 Glucose 150 mg/dL (74-106) H 02/20/21 03:44 Magnesium 2.4 mg/dL (1.8-2.4) 02/19/21 19:03 Total Bilirubin 0.4 mg/dL (0.2-1.0) 02/20/21 03:44 AST 15 U/L (15-37) 02/20/21 03:44 ALT 16 U/L (12-78) 02/20/21 03:44 Alkaline Phosphatase < 10 U/L (45-117) L 02/20/21 03:44 Triglycerides 82 mg/dL (<150) 02/20/21 03:44 Cholesterol 108 mg/dL (<200) 02/20/21 03:44 HDL Cholesterol 48 mg/dL (40-60) 02/20/21 03:44 Cholesterol/HDL Ratio 2.25 02/20/21 03:44 Lipase 262 U/L (73-393) 02/19/21 19:03 Home Medications: Aspirin [Pura Chewable Aspirin] 81 mg PO DAILY 09/16/13 Clopidogrel Bisulfate [Plavix*] 75 mg PO DAILY #0 tablet 09/19/13 Atorvastatin Calcium 20 mg PO BEDTIME 10/12/19 Lisinopril [Zestril] 1 tab PO DAILY 10/12/19 Metoprolol Tartrate 25 mg PO BID 10/12/19 Pantoprazole [Protonix Tab*] 1 tab PO DAILY 10/12/19 Famotidine 20 mg PO BID 07/25/20 Hydrocodone 10/APAP 325 [[place] 10/325*] 1 tab PO Q4HR PRN 07/25/20 Cyanocobalamin/Cobamamide [Vitamin B-12 5,000 Mcg Tab Sl] 1 each SL DAILY #30 tab.subl 07/27/20 Nitrofurantoin Macrocrystal [Nitrofurantoin] 50 mg PO BID #28 capsule 07/27/20 Gabapentin [Neurontin*] 100 mg PO BEDTIME 02/20/21 Pentoxifylline 400 mg PO BIDAC 02/20/21 Physician Discharge Instructions: You were found to have low blood glucose levels, due to the glyburide medication. Recommend stopping this medication. Continue to check your blood glucose levels and record the results. Follow up with your PCP later this week with those results. Discuss if need to start on a new medication or strict diet control. Otherwise, ok to resume your medications as prescribed. Diet: ADA Activity: Ad ildefonso Time spent managing pt's care (in minutes): 45
== END 2021-02-20 10:05 | disposition home or self-care (01) ==
LOC: ER 18:47 → ERHOLD 21:23
PROVIDERS: ADMIT Hospitalist; ATTEND Hospitalist
DX: E11.649 Type 2 diabetes mellitus with hypoglycemia without coma (principal); T38.3X5A Adverse effect of insulin and oral hypoglycemic [antidiabetic] drugs, initial encounter; I13.0 Hypertensive heart and chronic kidney disease with heart failure and stage 1 through stage 4 chronic kidney disease, or unspecified chronic kidney disease; E11.22 Type 2 diabetes mellitus with diabetic chronic kidney disease; N18.30 Chronic kidney disease, stage 3 unspecified; I50.32 Chronic diastolic (congestive) heart failure; I25.10 Atherosclerotic heart disease of native coronary artery without angina pectoris; I73.9 Peripheral vascular disease, unspecified; M06.9 Rheumatoid arthritis, unspecified; G62.9 Polyneuropathy, unspecified; G89.29 Other chronic pain; M54.9 Dorsalgia, unspecified; I25.2 Old myocardial infarction; Z79.82 Long term (current) use of aspirin; Z79.02 Long term (current) use of antithrombotics/antiplatelets; Z88.6 Allergy status to analgesic agent; Z88.8 Allergy status to other drugs, medicaments and biological substances; Z91.012 Allergy to eggs; Z91.018 Allergy to other foods; Z91.041 Radiographic dye allergy status; Z95.1 Presence of aortocoronary bypass graft; Z95.5 Presence of coronary angioplasty implant and graft; Z87.442 Personal history of urinary calculi; Z90.710 Acquired absence of both cervix and uterus; Z90.49 Acquired absence of other specified parts of digestive tract; Z20.822 Contact with and (suspected) exposure to COVID-19; Z82.49 Family history of ischemic heart disease and other diseases of the circulatory system
CPT/HCPCS: 96361; 93005; 85025 ×2; 80048; 36415; 83735; 85610; 80061; 82947 ×3; 80076; 84443; 83036; 84484; 84439; 83690; 80053; 83880; 71045; 96360; 96372; 99285; U0003; J2354; J7030; G0378 ×3

== ENCOUNTER 2022-03-04 17:27 | Emergency (ER) | payer OTHER ==
--- OUTSIDE RECORDS SUMMARY | 2022-03-04 17:37 | XMS REPORT | Continuity of Care Document ---
:1940 Author Organization [facility] t Address [address] [place] [address] Care Team Providers Name Role Phone JEFF AKINS Primary Care Physician Unavailable SAUL LOVE Attending Clinician Unavailable MIHIR RPOER Attending Clinician Unavailable DUNG TA Attending Clinician DAVID Hillman Attending Clinician Unavailable Saul Love MD Attending Clinician SAUL LOVE Attending Clinician Unavailable Candy Coelho RN Attending Clinician Unavailable Saul Love MD Attending Clinician Alba Rodriguez MD Attending Clinician [phone] Courtney ANTHONY, Isatu Hernandez Attending Clinician ALBA RODRIGUEZ Attending Clinician Unavailable Ngoc Cardenas MD Attending Clinician Mihir Thurman MD Attending Clinician Francisca Thomas RN Attending Clinician Unavailable SAUL LOVE Admitting Clinician Unavailable MIHIR ROPER Admitting Clinician Unavailable DUNG TA Admitting Clinician DAVID Hillman Admitting Clinician Unavailable Payers Payer Name Policy Type Policy Number Effective Date Expiration Date Joanne hdz MEDICARE A B [id number] 2005 00:00:00 MEDICAID [facility] [id number] 2021 00:00:00 MANAGED MEDICAID [id number] 2021 -GENERIC 00:00:00 BOB TORREZ [id number] 2010 00:00:00 COVID19 HRSA [id number] GENERIC PPO - [id number] GENERIC PAYOR 00:00:00 ZZCDRADHASELECT MEDICAL [facility] [id number] 2018 2018 00:00:00 00:00:00 Problems Condition Condition Condition Status Onset Resolution Last Treating Co mments Source Name Details Category Date Date Treatment Clinician Date PAD PAD Disease Active [facility] (periphera (periphera 2-25 [facility] l artery l artery 00:00: Medica l disease) disease) 00 Center PAD PAD Disease Active [facility] (periphera (periphera 1-14 Co llege l artery l artery 00:00: of disease) disease) 00 Medici n (HCCode) (HCCode) e CHF CHF Disease Active [facility] (congestiv (congestiv 6-09 [facility] e heart e heart 00:00: Medical failure) failure) 00 Center Coronary Coronary Disease Active [facility] disease disease 00:00: Medical 00 Center Chronic Chronic Disease Active 2019- [facility] back pain back pain 6-09 [facility] 00:00: Medical 00 [place] Arthritis Arthritis Disease Active 2019- [facility] 6[facility]09 [facility] 00:00: Medical 00 [place] NSTEMI NSTEMI Disease Active 2019- [facility] (non-ST (non-ST 6- [facility] elevated elevated 00:00: Medica l myocardial myocardial 00 Ce nter infarction infarction ) ) S/P ACB x2 S/P ACB x2 Disease Active [facility] EMANUEL TO EMANUEL TO [facility] LAD and LAD and Medical SAPHENOUS SAPHENOUS Cent er VEIN TO OM VEIN TO OM Dr. Dr. Judson Roper 09/14/2019 09/14/2019 Acute Acute Disease Active [facility] blood loss blood loss [facility] anemia anemia [facility] Acute Acute Disease Active [facility] respirator respirator [facility] kes y y Medical insufficie insufficie Ce nter ncy ncy Hypovolemi Hypovolemi Disease Active [facility] c shock c shock [facility] Vasogenic Vasogenic Disease Active [facility] shock shock [facility] Metabolic Metabolic Disease Active [facility] acidosis acidosis [facility] Allergies, Adverse Reactions, Alerts Allergy Allergy Status Severity Reaction(s) Onset Inactive Treating Comm ents Source Name Type Date Date Clinician Propoxyp Propensi Active Vomiting Bayl or hene ty to Only 04-19 College adverse 00:00: of reaction 00 Medicin s to e drug CAULIFLO Allergy Active N\\T\\V [address] [facility] WER 09-11 [facility] 00:00: Medical 00 Center PROPOXYP Allergy Active N\\T\\V [address] [facility] HENE 09-11 [facility] N-ACETAM 00:00: Medical INOPHEN 00 Center EGG Allergy Active N\\T\\V [address] [facility] 09-11 [facility] 00:00: Medical 00 Center STATINS- Allergy Active N\\T\\V [facility] HMG-COA 09-11 [facility] REDUCTAS 00:00: Medical E 00 Center INHIBITO RS IODINE Allergy Active Low Rash 2019-[address] [facility] AND 09-11 [facility] IODIDE 00:00: Medical CONTAINI 00 Center NG PRODUCTS Cauliflo Propensi Active Nausea And 2019-[address] wer ty to Vomiting 09-11 [facility] adverse 00:00: Medical reaction 00 Center s Propoxyp Propensi Active Nausea And 2020-[address] hene ty to Vomiting 09-11 [facility] N-Acetam adverse 00:00: Medical inophen reaction 00 Center s Iodine Propensi Active Rash 2019-[address] [facility] [facility] And ty to 09-11 [facility] Iodide adverse 00:00: Medical Containi reaction 00 Center ng s Products Statins- Propensi Active Nausea And 2020-[address] Hmg-Coa ty to Vomiting 09-11 [facility] Reductas adverse 00:00: Medical e reaction 00 Center Inhibito s rs EGG Allergy Active Low N\\T\\V 2016-[address] [facility] 2 [facility] 00:00: Medical 00 Center Egg Drug Active Nausea And 2016-[address] Allergy Vomiting 05-09 by [facility] 00:00: itself. Medical 00 NOT Center allergic to egg products or items cooked with eggs Other reaction( s): Nausea/Vo miting Family History Family Member Diagnosis Comments Start Date Stop Date Source Natural father Heart disease [facility] Natural mother Heart disease [facility] Social History Social Habit Start Date Stop Date Quantity Comments Source History SDOH [facility] Alcohol Std Drinks Medica l Center History SDOH [facility] Alcohol Binge Medical Reynaldo ter History SDOH [facility] Alcohol Comment Medical C enter Exposure to 2021-06-18 2021-06-28 Not sure [facility] Colleg e SARS-CoV-2 (event) 00:00:00 15:19:00 of Med icine Alcohol intake 2021-06-14 2021-06-[address] Irish es 00:00:00 00:00:00 non-drinker of Medical Ce nter alcohol (finding) Tobacco use and 2019-09-12 2019-09-[address] [facility] Marci kes exposure 00:00:00 00:00:00 Medical Center History SDOH 2019-09-12 2019-09-[address] [facility] Alcohol Frequency 00:00:00 00:00:00 [facility] Sex Assigned At [address] [facility] Marci kes 00:00:00 00:00:00 [facility] Smoking Status Start Date Stop Date Source Never smoked tobacco [facility] Joselo ege of Medicine Medications Ordered Filled Start Stop Current Ordering Indication Dosage Frequency Signature Comments Components Source Medication Medication Date Date Medication? Clinician (SIG) Name Name amiodarone 2022- No 200mg QD Take [address] [facility] [facility] (PACERONE) 06-16 tablet [facility] 200 MG 00:00: 23:59 (200 mg Medical tablet 00 :00 total) by Center mouth daily. pantoprazol 2022- No 40mg QD Take [address] [facility] [facility] e 06-16 tablet (40 [facility] (PROTONIX) 00:00: 23:59 mg total) M edical 40 MG 00 :00 by mouth Center tablet daily. isosorbide 2022- No 30mg QD Take [address] mononitrate 06-16 tablet (30 L ukes (IMDUR) 30 00:00: 23:59 mg total) M edical MG 24 hr 00 :00 by mouth Center tablet daily. metoprolol 2022- No 25mg QD Take [address] succinate 3-11 03-11 tablet (25 Irish es (TOPROL-XL) 00:00: 23:59 mg total) Medical 25 MG 24 hr 00 :00 by mouth Cent er tablet daily. aspirin 81 Yes 81mg QD Take [address] MG EC 3-10 by mouth [facility] tablet 17:14: daily. Medical 51 Center clopidogreL Yes 75mg QD Take [address] (PLAVIX) 75 3-10 by mouth Luke s mg tablet 17:14: daily. Medica l 51 Center atorvastati Yes 20mg QD Take [address] [facility] n (LIPITOR) 3-10 by mouth Luke s 20 MG 17:14: daily. Medical tablet 51 Center dapaglifloz Yes 10mg QD Take [address] [facility] in 3-10 by mouth [facility] (Farxiga) 17:14: daily. Medica l 10 mg 51 Center tablet lisinopriL No 2.5mg QD Take 2.[address] (PRINIVIL,Z 3-10 03-10 mg by [facility] ESTRIL) 2.5 14:36: 00:00 mouth Medi deep MG tablet 46 :00 daily. Center metoprolol No 25mg Q.5D Take [address] tartrate 3-10 03-10 by mouth 2 Luke s (LOPRESSOR) 09:03: 00:00 (two) Medi deep 25 MG 44 :00 times Center tablet daily. rivaroxaban 2021- No 2.5mg Take 2.[address] (Xarelto) 3-10 02-28 mg by [facility] 2.5 mg Tab 09:03: 00:00 mouth 2 Med ical tablet 41 :00 (two) Center times daily with breakfast and dinner. metoprolol 2021- No 25mg Q.5D Take [address] succinate 3-10 03-10 tablet (25 Irish es (TOPROL-XL) 00:00: 00:00 mg total) Medical 25 MG 24 hr 00 :00 by mouth 2 Ce nter tablet (two) times daily. rivaroxaban 2021- No 2.5mg Take [address] (Xarelto) 3 03-10 tablet [facility] 2.5 mg Tab 00:00: 00:00 (2.5 mg Med ical tablet 00 :00 total) by Center mouth 2 (two) times daily with breakfast and dinner Resume on 06/06 evening. pregabalin 2021-0 2- No 100mg QD Take [address] (LYRICA) 2-28 02-28 mg by [facility] 100 MG 14:15: 00:00 mouth Medical capsule 25 :00 nightly. Center FARXIGA 10 2021-0 Yes [facility] MG TABS 1-08 College 00:00: of 00 Medicin e FARXIGA 10 2021-0 Yes [facility] MG TABS 1-08 College 00:00: of 00 Medicin e FARXIGA 10 2021-0 Yes Todd MG TABS 1-08 College 00:00: of 00 Medicin e XARELTO 2.5 2021-0 Yes [facility] MG TABS 1-06 College 00:00: of 00 Medicin e clopidogrel 2021-0 Yes [facility] (PLAVIX) 75 1-06 College MG Tablet 00:00: of 00 Medicin e XARELTO 2.5 2021-0 Yes [facility] MG TABS 1-06 College 00:00: of 00 Medicin e clopidogrel 2021-0 Yes [facility] (PLAVIX) 75 1-06 College MG Tablet 00:00: of 00 Medicin e XARELTO 2.5 2021-0 Yes Todd MG TABS 1-06 College 00:00: of 00 Medicin e clopidogrel 2021-0 Yes [facility] (PLAVIX) 75 1-06 College MG Tablet 00:00: of 00 Medicin e metoprolol 2021-0 Yes [facility] (LOPRESSOR) 1-05 College 25 MG 00:00: of tablet 00 Medicin e metoprolol 2021-0 Yes [facility] (LOPRESSOR) 1-05 College 25 MG 00:00: of tablet 00 Medicin e metoprolol 2021-0 Yes [facility] (LOPRESSOR) 1-05 College 25 MG 00:00: of tablet 00 Medicin e pentoxifyll 2020-04 Yes Todd moser 2-31 College (TRENTAL) 00:00: of 400 MG CR 00 Medicin tablet e pentoxifyll 2020-04 Yes Todd moser 2-31 [place] (TRENTME) 00:00: of 400 MG CR 00 Medicin tablet e pentoxifyll 2020-04 Yes [facility] ine 2-31 [place] (TRENTME) 00:00: of 400 MG CR 00 Medicin tablet e pentoxifyll 2020-04 Yes 400mg Q.5D Take [address] ine 2-31 mg by [facility] (TRENTME) 00:00: mouth 2 Medic al 400 mg CR 00 (two) Center tablet times daily. ipratropium 2020-04 Yes [facility] -albuterol 2-24 [place] ([place]) 00:00: of 0.5-2.5 (3) 00 Medicin MG/3ML e ipratropium 2020-04 Yes [facility] -albuterol 2-24 [place] ([place]) 00:00: of 0.5-2.5 (3) 00 Medicin MG/3ML e ipratropium 2020-04 [facility] [place] ([place]) 00:00: of 0.5-2.5 (3) 00 Medicin MG/3ML e Nebulizers 2020-04 Yes See Admin Ba ylor ([facility] 2-16 [facility] AEROSOL 00:00: ns. of DELIVERY 00 Medicin SYSTEM) e MISC hydrocodone 2020-04 Yes [facility] [place] hen (STELLA) 00:00: of 10-325 MG 00 Medicin per tablet e Nebulizers 2020-04 Yes See Admin Ba ylor ([employer] 2-16 [facility] AEROSOL 00:00: ns. of DELIVERY 00 Medicin SYSTEM) e MISC hydrocodone 2020-04 Yes [facility] [place] hen (STELLA) 00:00: of 10-325 MG 00 Medicin per tablet e Nebulizers 2020-04 Yes See Admin Ba ylor ([employer] 2-16 [facility] AEROSOL 00:00: ns. of DELIVERY 00 Medicin SYSTEM) e MISC hydrocodone 2020-04 Yes [facility] [place] hen (STELLA) 00:00: of 10-325 MG 00 Medicin per tablet e Cholecalcif 2020-04 Yes [facility] gilberto 2-15 College (VITAMIN 00:00: of D3) 1.25 MG 00 Medicin (16037 UT) e CAPS Cholecalcif 2020-04 Yes [facility] 2-15 College (VITAMIN 00:00: of D3) 1.25 MG 00 Medicin (43376 UT) e CAPS Cholecalcif 2020-04 Yes [facility] 2-15 College (VITAMIN 00:00: of D3) 1.25 MG 00 Medicin (68885 UT) e CAPS lisinopril 2020-04 Yes [facility] ([facility], [address] [place] [facility] 00:00: of 2.5 MG 00 Medicin tablet e lisinopril 2020-04 Yes [facility] ([facility], 04 [facility]) 00:00: of 2.5 MG 00 Medicin tablet e lisinopril 2020-04 Yes [facility] ([facility], [address] [place] [facility] [facility] 00:00: of 2.5 MG 00 Medicin tablet e furosemide 2020-04 Yes [facility] (LASIX) 20 1-29 College MG tablet 00:00: of 00 Medicin e furosemide 2020-04 Yes [facility] (LASIX) 20 1-29 College MG tablet 00:00: of 00 Medicin e furosemide 2020-04 Yes [facility] (LASIX) 20 1-29 College MG tablet 00:00: of 00 Medicin e metformin 2020-04 Yes [facility] (GLUCOPHAGE 1-22 College ) 500 MG 00:00: of tablet 00 Medicin e metformin 2020-04 Yes [facility] (GLUCOPHAGE 1-22 College ) 500 MG 00:00: of tablet 00 Medicin e metformin 2020-04 Yes [facility] (GLUCOPHAGE 1-22 College ) 500 MG 00:00: of tablet 00 Medicin e atorvastati 2020-04 Yes [facility] n (LIPITOR) 1-11 College 20 MG 00:00: of tablet 00 Medicin e atorvastati 2020-04 Yes [facility] n (LIPITOR) 1-11 College 20 MG 00:00: of tablet 00 Medicin e atorvastati 2020-04 Yes [facility] n (LIPITOR) 1-11 College 20 MG 00:00: of tablet 00 Medicin e pantoprazol 2021- No 40mg QD Take [address] [facility] e 09-29 tablet (40 [facility] (PROTONIX) 00:00: 00:00 mg total) M edical 40 MG 00 :00 by mouth Center tablet daily. methyl 2019- Yes 5g Apply [address] [facility] salicylate- 09-28 topically Irish es menthol 00:00: 3 (three) Medic al 15-10 % 00 times Center Crea daily as needed. lancets-blo Yes 1{each} [address] [facility] od glucose - Miscellane Irish es strips 30 00:00: ous route Med ical gauge Cmpk 00 daily as Cente r needed. glucometer Yes 1{each} [address] [facility] (FREESTYLE) 6- Other - [facility] Misc 00:00: See Admin Medical 00 Instructio Center ns route daily as needed for up to 1 day One. tamsulosin 2021- No .4mg QD Take [address] [facility] [facility] (FLOMAX) 09-28 capsule [facility] 0.4 mg Cap 00:00: 00:00 (0.4 mg Med ical 24 hr 00 :00 total) by Center capsule mouth nightly. Immunizations Ordered Immunization Filled Immunization Date Status Commen ts Source Name Name Pneumococcal 2019-09-[address] [facility] Conjugate (Prevnar) 00:00:00 Medic al Center 13-Valent Vital Signs Vital Name Observation Time Observation Value Comments Source HEIGHT 2019-09-18 00:00:00 157.7 cm WEIGHT 2019-09-18 00:00:00 70.852 kg HEIGHT 2019-09-11 00:00:00 157.5 cm WEIGHT 2019-09-11 00:00:00 79.833 kg Systolic blood 2021-11-22 20:53:00 187 mm[Hg] [facility] pressure Medicine Diastolic blood 2021-11-22 20:53:00 72 mm[Hg] [facility] of pressure Medicine Heart rate 2021-11-22 20:53:00 55 /min [facility] Body height 2021-11-22 20:53:00 160 cm [facility] Systolic blood 2021-06-28 20:03:00 129 mm[Hg] [facility] of pressure Medicine Diastolic blood 2021-06-28 20:03:00 71 mm[Hg] [facility] Medicine Heart rate 2021-06-28 20:03:00 60 /min [facility] Body height 2021-06-28 20:03:00 160 cm [facility] Body weight 2021-06-28 20:03:00 71.668 kg [facility] BMI 2021-06-28 20:03:00 27.99 kg/m2 [facility] WEIGHT 2021-06-14 05:09:00 69.627 kg WEIGHT 2021-06-11 07:00:00 74.39 kg WEIGHT 2021-06-09 06:50:00 72.576 kg WEIGHT 2021-06-05 10:53:00 69.355 kg HEIGHT 2021-06-02 08:26:00 160 cm WEIGHT 2021-06-02 08:26:00 69.4 kg WEIGHT 2021-06-14 05:09:00 69.627 kg WEIGHT 2021-06-11 07:00:00 74.39 kg WEIGHT 2021-06-09 06:50:00 72.576 kg WEIGHT 2021-06-05 10:53:00 69.355 kg HEIGHT 2021-06-02 08:26:00 160 cm WEIGHT 2021-06-02 08:26:00 69.4 kg WEIGHT 2021-06-14 05:09:00 69.627 kg WEIGHT 2021-06-11 07:00:00 74.39 kg WEIGHT 2021-06-09 06:50:00 72.576 kg WEIGHT 2021-06-05 10:53:00 69.355 kg HEIGHT 2021-06-02 08:26:00 160 cm WEIGHT 2021-06-02 08:26:00 69.4 kg HEIGHT 2021-05-08 11:37:00 157.7 cm WEIGHT 2021-05-08 11:37:00 70.308 kg HEIGHT 2021-05-08 11:37:00 157.7 cm WEIGHT 2021-05-08 11:37:00 70.308 kg HEIGHT 2021-05-08 11:37:00 157.7 cm WEIGHT 2021-05-08 11:37:00 70.308 kg Systolic blood 2021-04-19 20:12:00 175 mm[Hg] [facility] Medicine Diastolic blood 2021-04-19 20:12:00 70 mm[Hg] [facility] Medicine Heart rate 2021-04-19 20:12:00 67 /min [facility] Body height 2021-04-19 20:12:00 160 cm [facility] Body weight 2021-04-19 20:12:00 68.493 kg [facility] BMI 2021-04-19 20:12:00 26.75 kg/m2 [facility] HEIGHT 2019-09-18 00:00:00 157.7 cm WEIGHT 2019-09-18 00:00:00 70.852 kg HEIGHT 2019-09-11 00:00:00 157.5 cm WEIGHT 2019-09-11 00:00:00 79.833 kg Heart rate 2021-06-15 11:47:00 66 /min [facility] Systolic blood 2021-06-15 08:00:00 122 mm[Hg] [facility] Diastolic blood 2021-06-15 08:00:00 64 mm[Hg] [facility] Body temperature 2021-06-15 08:00:00 36.67 Mercedes [facility] Respiratory rate 2021-06-15 08:00:00 20 /min [facility] Oxygen saturation in 2021-06-15 08:00:00 98 /min [facility] Arterial blood by Medical Ce nter Pulse oximetry Body weight 2021-06-14 05:09:00 69.627 kg [facility] BMI 2021-06-14 05:09:00 27.19 kg/m2 [facility] Body height 2021-06-02 08:26:00 160 cm [facility] Procedures Procedure Date / Time Performing Clinician Source Performed POCT-GLUCOSE METER 2021-06-15 10:59:00 Alba Rodriguez [facility] CBC W/PLT COUNT & AUTO 2021-06-15 08:39:00 Alba Rodriguez [facility] DIFFERENTIAL [facility] CBC W/PLT COUNT & AUTO 2021-06-15 08:39:[facility] POCT-GLUCOSE METER 2021-06-15 08:21:00 [facility] BASIC METABOLIC PANEL 2021-06-15 06:18:[address] [facility] MAGNESIUM 2021-06-15 06:18:00 Harrison [facility] PREPARE LEUKO-REDUCED RBC 2021-06-14 23:55:00 Maicol Holl[facility] POCT-GLUCOSE METER 2021-06-14 21:24:00 Cooper [facility] POCT-GLUCOSE METER 2021-06-14 16:16:00 Cooper Green [facility] POCT-GLUCOSE METER 2021-06-14 11:42:00 [facility] POCT-GLUCOSE METER 2021-06-14 08:23:00 [facility] BASIC METABOLIC PANEL 2021-06-14 05:59:[address] [facility] MAGNESIUM 2021-06-14 05:59:00 Harrison [facility] POCT-GLUCOSE METER 2021-06-13 21:44:00 [facility] US EXTREMITY NON-VASCULAR 2021-06-13 18:15:00 Michael, [facility] LIMITED RIGHT [facility] CBC W/PLT COUNT & AUTO 2021-06-13 17:10:00 Harrison [facility] CBC W/PLT COUNT & AUTO 2021-06-13 17:10:00 [facility]UCOSE METER 2021-06-13 16:02:00 Michael, [facility] POCT-GLUCOSE METER 2021-06-13 12:16:00 [facility] TRANSFUSE LEUKO-REDUCED 2021-06-13 09:12:00 Maicol Hollis CH, I [facility] RED BLOOD CELLS [facility] POCT-GLUCOSE METER 2021-06-13 07:15:00 [facility] BASIC METABOLIC PANEL 2021-06-13 05:31:00 [facility] ONLY[facility] 2021-06-13 05:31:00 Harrison [facility] MAGNESIUM 2021-06-13 05:31:00 Harrison [facility] US RENAL COMPLETE 2021-06-13 04:56:00 Ngoc Cardenas [facility] POCT-GLUCOSE METER 2021-06-12 21:17[facility]00 [facility] AUTO 2021-06-12 19:40:00 John Musa [facility] TYPE AND SCREEN, 2021-06-12 19:40:[address] [facility] CBC W/PLT COUNT & AUTO 2021-06-12 19:40:00 John Musa [facility] POCT-ACT 2021-06-12 17:24:00 Courtney, [facility] POCT-ACT 2021-06-12 13:17:00 Courtney [facility] POCT-GLUCOSE METER 2021-06-12 13:06:00 Courtney, [facility] POCT-ACT 2021-06-12 11:10:00 Courtney [facility] POCT-ACT 2021-06-12 10:28:00 Courtney [facility] POCT-ACT 2021-06-12 10:08:00 Isatu Valdez [facility] CATHETERIZATION, HEART, 2021-06-12 08:40:00 SenNgoc [facility] LEFT, WITH PERCUTANEOUS Medical Center CORONARY INTERVENTION POCT-GLUCOSE METER 2021-06-12 07:28:00 Isatu Valdez lorraine [facility] BASIC METABOLIC PANEL 2021-06-12 04:17:00 Chandler Terry [facility] MAGNESIUM 2021-06-12 04:17:00 Chandler Terry [facility] CBC (HEMOGRAM ONLY) 2021-06-12 04:17:00 [facility] PO[facility]SE METER 2021-06-11 21:16:00 [facility] PO[facility]SE [facility] 2021-06-11 16:44:00 [facility] HEMOGLOBIN AND HEMATOCRIT 2021-06-11 12:57:00 Courtney Isatuarmando Mathews [facility] SARS-COV2/RT-PCR ([facility] & 2021-06-11 12:39:00 Chandler Terry [facility] POCT-GLUCOSE METER 2021-06-11 11:42:00 [facility] POCT-[facility]UCOSE METER 2021-06-11 07:34:00 [facility]Isatu [facility] BASIC METABOLIC PANEL 2021-06-11 04:35:00 Chandler Terry [facility] MAGNESIUM 2021-06-11 04:35:00 Chandler Terry [facility] CBC (HEMOGRAM ONLY) 2021-06-11 04:35:00 Chandler Terry [facility] POCT-GLUCOSE METER 2021-06-10 21:08:00 CourtneyIsatu west [facility] POCT-GLUCOSE METER 2021-06-10 17:13:00 Courtney, [facility] URINALYSIS W/ REFLEX 2021-06-10 13:17:00 Courtney, [facility] URINE CULTURE [facility] URINE CULTURE 2021-06-10 13:17:00 Courtney [facility] POCT-GLUCOSE METER 2021-06-10 11:27:00 Courtney [facility] POCT-GLUCOSE METER 2021-06-10 07:40:00 Courtney, [facility] BASIC METABOLIC PANEL 2021-06-10 04:51:00 [facility] MAGNESIUM 2021-06-10 04:51:00 [facility] ([facility] ONLY) 2021-06-10 04:51:00 Chandler Terry [facility] POCT-GLUCOSE METER 2021-06-09 21:08:00 Courtney [facility] POCT-GLUCOSE METER 2021-06-09 17:24:00 Courtney [facility] POCT-GLUCOSE METER 2021-06-09 11:54:00 Courtney [facility] HEMOGLOBIN AND HEMATOCRIT 2021-06-09 11:46:00 Courtney [facility] SARS-COV2/RT-PCR ([facility] & 2021-06-09 11:46:00 Chandler Terry [facility] REF LABS) [facility] NM MYOCARDIAL PERFUSION 2021-06-09 10:49:00 Ngoc Cardenas [facility] PET/CT (REST & STRESS) Medical C enter TREADMILL 2021-06-09 10:45:41 Unknown, Hl7 [facility] TOLERANCE(NON-NUCLEAR Medical Ce nter TREADMILL) ECG 12-LEAD 2021-06-09 10:34:21 Unknown, Hl7 [facility] ECG 12-LEAD 2021-06-09 10:34:21 Unknown, Hl7 Doctor [facility] POCT-GLUCOSE METER 2021-06-09 07:17:00 CourtneyIsatu west [facility] BASIC METABOLIC PANEL 2021-06-09 03:16:00 Chandler Terry [facility] MAGNESIUM 2021-06-09 03:16:00 Chandler Terry [facility] CBC (HEMOGRAM ONLY) 2021-06-09 03:16:00 Chandler Terry [facility] POCT-GLUCOSE METER 2021-06-08 21:22:00 CourtneyIsatu [facility] TSH/FREE T4 IF INDICATED 2021-06-08 18:03:00 Ngoc Cardenas [facility] HEMOGLOBIN AND HEMATOCRIT 2021-06-08 18:03:00 CourtneyIsatu [facility] POCT-GLUCOSE METER 2021-06-08 17:16:00 [facility] POCT-GLUCOSE METER 2021-06-08 11:23:00 CourtneyIsatu [facility] POCT-GLUCOSE METER 2021-06-08 07:29:00 Courtney [facility] BASIC METABOLIC PANEL 2021-06-08 04:27:00 Chandler Terry [facility] MAGNESIUM 2021-06-08 04:27:00 Chandler Terry [facility] CBC (HEMOGRAM ONLY) 2021-06-08 04:27:00 Layo Terryvid [facility] POCT-GLUCOSE METER 2021-06-07 20:54:00 Courtney [facility] HEMOGLOBIN AND HEMATOCRIT 2021-06-07 20:25:00 CourtneyChristinasa Reid [facility] POCT-GLUCOSE METER 2021-06-07 17:03:00 Courtney, [facility] HEMOGLOBIN AND HEMATOCRIT 2021-06-07 15:10:00 Courtney, Isatu Vickpatrick [facility] POCT-GLUCOSE METER 2021-06-07 12:42:00 Courtney, [facility] 2D ECHO W/ DOPPLER 2021-06-07 12:05:45 Ngoc Cardenas [facility] (CW/PW/COLOR) [facility] POCT-GLUCOSE METER 2021-06-07 07:30:00 Courtney, [facility] BASIC METABOLIC PANEL 2021-06-07 04:13:00 [facility] MAGNESIUM 2021-06-07 04:13:00 [facility] CBC W/PLT COUNT & AUTO 2021-06-07 04:13:00 [facility] CBC W/PLT COUNT & AUTO 2021-06-07 04:13:00 [facility] HEMOGLOBIN AND HEMATOCRIT 2021-06-07 00:04:00 [facility] POCT-GLUCOSE METER 2021-06-06 21:11:00 Courtney, [facility] CT ABDOMEN/PELVIS WITHOUT 2021-06-06 18:30:00 [facility] HEMOGLOBIN AND HEMATOCRIT 2021-06-06 17:45:00 Courtney Isatu [facility] HIGH SENSITIVITY TROPONIN 2021-06-06 17:45:00 CourtneyIsatu west Nicanorpatrick [facility] POCT-GLUCOSE METER 2021-06-06 17:10:00 Courtney [facility] POCT-GLUCOSE METER 2021-06-06 11:38:00 Courtney, [facility] HEMOGLOBIN AND HEMATOCRIT 2021-06-06 10:50:00 CourtneyIsatu west [facility] HIGH SENSITIVITY TROPONIN 2021-06-06 10:50:00 Isatu Valdez [facility] ECG 12-LEAD 2021-06-06 09:14:51 Unknown, Hl7 [facility] ECG 12-LEAD 2021-06-06 09:14:51 Unknown, Hl7 [facility] POCT-GLUCOSE METER 2021-06-06 07:50:00 [facility] W/PLT COUNT & AUTO 2021-06-06 04:35:00 Bryant Melendez [facility] CBC W/PLT COUNT & AUTO 2021-06-06 04:35:00 Bryant Melendez [facility] BASIC METABOLIC PANEL 2021-06-06 04:35:00 Chandler Terry [facility] MAGNESIUM 2021-06-06 04:35:00 Chandler Terry [facility] URINALYSIS W/ REFLEX 2021-06-05 21:20:00 Rosie Hardy [facility] URINE CULTURE [facility] POCT-GLUCOSE METER 2021-06-05 21:13:00 [facility] HEMOGLOBIN AND HEMATOCRIT 2021-06-05 20:54:00 Isatu Valdezpatrick ambrosio [facility] POCT-GLUCOSE METER 2021-06-05 17:07:00 [facility] POCT-GLUCOSE METER 2021-06-05 14:52:00 [facility] PERIPHERAL ANGIOS / 2021-06-05 11:33:00 Saul Love [facility] POCT-GLUCOSE METER 2021-06-05 08:13:00 [facility] CBC W/PLT COUNT & AUTO 2021-06-05 05:35:00 [facility] BASIC METABOLIC PANEL 2021-06-05 05:35:00 Chandler Terry [facility] MAGNESIUM 2021-06-05 05:35:00 Chandler Terry [facility] CBC W/PLT COUNT & AUTO 2021-06-05 05:35:00 Bryant Melendez [facility] SARS-COV2/RT-PCR ([facility] & 2021-06-05 05:16:00 Chandler Terry [facility] POCT-GLUCOSE METER 2021-06-04 16:18:00 [facility] TYPE AND SCREEN, 2021-06-04 14:58:00 Germán Garcia [facility] AUTOMATED [facility] POCT-GLUCOSE METER 2021-06-04 11:11:00 [facility] POCT-GLUCOSE METER 2021-06-04 07:06:00 [facility] CBC W/PLT COUNT & AUTO 2021-06-04 05:11:00 [facility] BASIC METABOLIC PANEL 2021-06-04 05:11:00 Chandler Terry [facility] MAGNESIUM 2021-06-04 05:11:00 Dionnapaleann [facility] CBC W/PLT COUNT & AUTO 2021-06-04 05:11:00 Bryant Melendez [facility] POCT-GLUCOSE METER 2021-06-03 21:13:00 [facility] POCT-GLUCOSE METER 2021-06-03 15:52:00 [facility] POCT-GLUCOSE METER 2021-06-03 12:46:00 [facility] POCT-GLUCOSE METER 2021-06-03 08:37:[address] [facility] CT CHEST WITH IV CONTRAST 2021-06-03 06:12:00 [facility] CT ABDOMEN/PELVIS WITH IV 2021-06-03 06:12:00 [facility] CONTRAST [facility] CT BRAIN WITH IV CONTRAST 2021-06-03 06:12:00 [facility] CBC W/PLT COUNT & AUTO 2021-06-03 05:04:00 [facility] (CELLAVISION MANUAL DIFF) 2021-06-03 05:04:00 [facility] APTT 2021-06-03 05:04:00 [facility] BASIC METABOLIC PANEL 2021-06-03 05:04:[address] [facility] MAGNESIUM 2021-06-03 05:04:00 Harrison [facility] CBC W/PLT COUNT & AUTO 2021-06-03 05:04:00 Bryant Melendez [facility] POCT-GLUCOSE METER 2021-06-02 21:17:00 [facility] SARS-COV2/RT-PCR ([facility] & 2021-06-02 17:33:00 Dani [facility] REF LABS) [facility] CBC W/PLT COUNT & AUTO 2021-06-02 17:32:00 [facility] CBC W/PLT COUNT & AUTO 2021-06-02 17:32:00 [facility] PLATELET COUNT 2021-06-02 17:32:00 [facility] APTT 2021-06-02 17:32:00 [facility] HEMOGLOBIN A1C 2021-06-02 17:32:00 [facility] POCT-GLUCOSE METER 2021-06-02 17:17:00 Alba Rodriguez [facility] COMPREHENSIVE METABOLIC 2021-06-02 12:58:00 Shobha Pang [facility] PANEL [facility] XR CHEST 1 VIEW PORTABLE 2021-06-02 12:23:[address] [facility] / BEDSIDE [facility] HIGH SENSITIVITY TROPONIN 2021-06-02 12:09:52 Shobha Pang [facility] ECG 12-LEAD 2021-06-02 11:41:40 Shobha Pang [facility] ECG 12-LEAD 2021-06-02 11:41:40 Unknown, Hl7 [facility] PERIPHERAL ANGIOS / 2021-06-02 09:17:00 Ivan monico [facility] AORTOGRAM [facility] CARDIAC CATH REPORT - 2021-06-02 00:00:00 Provider [facility] VASCULAR DIAGRAM -SCAN 2021-06-02 00:00:00 [facility] CBC W/PLT COUNT & AUTO 2021-05-08 12:27:00 [facility] CBC W/PLT COUNT & AUTO 2021-05-08 12:27:00 [facility] BASIC METABOLIC PANEL 2021-05-08 12:27:00 [facility] ECG 12-LEAD 2021-05-08 12:08:20 [facility] ECG 12-LEAD 2021-05-08 12:08:20 Unknown, Hl7 [facility] SARS-COV2/RT-PCR ([facility] & 2021-05-08 12:00:00 [facility] REF LABS) [facility] Plan of Care Planned Activity Planned Date Details Comments Source Future Scheduled 2022-06-02 Tobacco Cessation [facility] Test 00:00:00 [facility] r Screening (12+) [code = Tobacco Cessation Counseling and Screening (12+)] Future Scheduled 2021-12-12 FALL SCREEN [code = [facility] of Test 10:50:58 FALL SCREEN] Medicine Future Scheduled 2021-12-12 COVID-19 Vaccine (#1) [facility] of Test 10:50:58 [code = COVID-19 Medicine Vaccine (#1)] Future Scheduled 2021-12-12 Pneumococcal 65+ (1 - Ba [facility] of Test 10:50:58 PCV) [code = Medicine Pneumococcal 65+ (1 - PCV)] Future Scheduled 2021-12-12 TETANUS SHOT (ADULT) [facility] of Test 10:50:58 [code = TETANUS SHOT Medicin e (ADULT)] Future Scheduled 2021-12-12 BMI FOLLOW UP PLAN [facility] of Test 10:50:58 [code = BMI FOLLOW UP Medici ne PLAN] Future Scheduled 2021-12-12 ZOSTER VACCINE (1 of [facility] of Test 10:50:58 2) [code = ZOSTER Medicine VACCINE (1 of 2)] Future Scheduled 2021-12-12 MEDICARE AWV (Initial) B [facility] of Test 10:50:58 [code = MEDICARE AWV Medicin e (Initial)] Future Scheduled 2021-12-12 Screening for [facility] Col [facility]ge of Test 10:50:58 osteoporosis Medicine (procedure) [code = 403554670] Future Scheduled 2021-12-12 FLU VACCINE > 6 MONTHS B [facility] of Test 10:50:58 [code = FLU VACCINE > Medici ne 6 MONTHS] Future Scheduled 2021-12-07 INFLUENZA VACCINE (#1) [facility] Test 00:00:00 [code = INFLUENZA Medical Ce nter VACCINE (#1)] Future Scheduled 2021-06-29 COVID-19 Vaccine (1) [facility] of Test 13:55:18 [code = COVID-19 Medicine Vaccine (1)] Future Scheduled 2021-06-29 TETANUS SHOT (ADULT) [facility] of Test 13:55:18 [code = TETANUS SHOT Medicin e (ADULT)] Future Scheduled 2021-06-29 BMI FOLLOW UP PLAN [facility] of Test 13:55:18 [code = BMI FOLLOW UP Medici ne PLAN] Future Scheduled 2021-06-29 ZOSTER VACCINE (1 of [facility] of Test 13:55:18 2) [code = ZOSTER Medicine VACCINE (1 of 2)] Future Scheduled 2021-06-29 MEDICARE AWV (Initial) B [facility] of Test 13:55:18 [code = MEDICARE AWV Medicin e (Initial)] Future Scheduled 2021-06-29 Screening for [facility] of Test 13:55:18 osteoporosis Medicine (procedure) [code = [id number]] Future Scheduled 2021-06-29 Pneumococcal 65+ (1 of B [facility] of Test 13:55:18 1 - PPSV23) [code = Medicine Pneumococcal 65+ (1 of 1 - PPSV23)] Future Scheduled 2021-06-29 FLU VACCINE > 6 MONTHS B [facility] of Test 13:55:18 [code = FLU VACCINE > Medici ne 6 MONTHS] Future Scheduled 2021-06-29 FALL SCREEN [code = [facility] of Test 13:55:18 FALL SCREEN] Medicine Future Scheduled 2021-04-21 COVID-19 Vaccine (1) [facility] of Test 09:14:07 [code = COVID-19 Medicine Vaccine (1)] Future Scheduled 2021-04-21 TETANUS SHOT (ADULT) [facility] of Test 09:14:07 [code = TETANUS SHOT Medicin e (ADULT)] Future Scheduled 2021-04-21 BMI FOLLOW UP PLAN [facility] of Test 09:14:07 [code = BMI FOLLOW UP Medici ne PLAN] Future Scheduled 2021-04-21 ZOSTER VACCINE (1 of [facility] of Test 09:14:07 2) [code = ZOSTER Medicine VACCINE (1 of 2)] Future Scheduled 2021-04-21 MEDICARE AWV (Initial) [facility] of Test 09:14:07 [code = MEDICARE AWV Medicin e (Initial)] Future Scheduled 2021-04-21 Screening for [facility] of Test 09:14:07 osteoporosis Medicine (procedure) [code = [id number]] Future Scheduled 2021-04-21 Pneumococcal 65+ (1 of B [facility] of Test 09:14:07 1 - PPSV23) [code = Medicine Pneumococcal 65+ (1 of 1 - PPSV23)] Future Scheduled 2021-04-21 FLU VACCINE > 6 MONTHS [facility] of Test 09:14:07 [code = FLU VACCINE > Medici ne 6 MONTHS] Future Scheduled 2021-04-21 FALL SCREEN [code = [facility] of Test 09:14:07 FALL SCREEN] Medicine Future Scheduled 2021-04-[address] [facility] Test 00:00:00 (12+) [code = Medical Center DEPRESSION SCREENING (12+)] Future Scheduled 2021-04-08 FALLS RISK SCREENING [facility] Test 00:00:00 [code = FALLS RISK Medical C enter SCREENING] Future Scheduled 2020-03-[address] [facility] Test 00:00:00 measurement Medical Center (procedure) [code = [id number]] Future Scheduled 2006-11-[address] [facility] Test 00:00:00 WELLNESS (YEAR 2 or Medical Center FIRST YEAR if no IPPE) [code = MEDICARE ANNUAL WELLNESS (YEAR 2 or FIRST YEAR if no IPPE)] Future Scheduled 1990 SHINGLES VACCINES ([address] [facility] Test 00:00:00 of 2) [code = SHINGLES Medic al Center VACCINES (1 of 2)] Future Scheduled 1959-11-11 DTAP/TDAP/TD [facility]ACCINES [facility] Test 00:00:00 (1 - Tdap) [code = Medical C enter DTAP/TDAP/TD VACCINES (1 - Tdap)] Future Scheduled [address] DIABETIC EYE EXAM [facility] Test 00:00:00 [code = DIABETIC EYE Medical Center EXAM] Future Scheduled 1950 Urine screening for [facility] Test 00:00:00 protein (procedure) [facility] [code = [id number]] Future Scheduled 1941-05-13 COVID-19 VACCINE (#1) [facility] Test 00:00:00 [code = COVID-[address] VACCINE (#1)] Future Scheduled 1940 DXA SCAN [code = DXA [facility] Test 00:00:00 SCAN] [facility] Encounters Start End Encounter Admission Attending Care Care Encounter Source Date/Time Date/Time Type Type Clinicians Facility Department ID 2021-04-21 Outpatient CORKY LOVE [facility] Surgery [id number] [facility] 14:08:09 SAUL 2021-01-10 Inpatient JUDSON [facility] Surgery [id number] [facility] 19:36:46 MIHIR 2019-09-18 Inpatient CORKY TA [facility] PM\\T\\R [id number] [facility] 17:27:00 UVIEOGHENE 2019-09-12 Inpatient ROXANN CORREA [facility] Cardiovascu [id number] SLE 00:27:00 DAVID l 2021-11-22 2021-11-23 Office FERCHO Love [id number] [facility] 15:15:00 09:58:16 Visit Jayer AMBULATOR [id number] College Y 0.2.7.2.686 of [id number] [facility] mik 825 e 2021-06-28 2021-06-28 Office FERCHO LOVE [id number] [facility] 14:56:46 16:50:25 Visit JAYER AMBULATOR 350.1.13.21 College Y 0.2.7.2.686 of [id number] [facility] mik 825 e 2021-06-28 2021-06-28 Outpatient [facility] [id number] [facility] 14:58:05 16:07:43 Toddg e of Medicin e 2021-06-19 2021-06-19 Documentat Meliton [facility] [id number] 00:00:00 00:00:00 ion Candy A [facility] 2021-06-02 2021-06-15 [facility] LoveSaul [facility] [id number] 08:16:00 17:14:[address] [facility] 2021-06-02 2021-06-15 Inpatient [facility] Surgery [id number] SLE 08:16:00 17:14:00 [facility] 2021-06-13 2021-06-13 Travel [facility] [id number] [facility] 00:[facility]00 00:00:00 [facility] 2021-06-12 2021-06-12 Surgery Ronald [facility] [id number] 07:40:00 10:11:00 [facility] 2021-06-09 2021-06-09 Orders [facility] [id number] 00:00:00 00:00:00 Only [facility] 2021-06-05 2021-06-[address] [facility] [id number] 11:55:00 14:37:00 [facility] 2021-06-05 2021-06-05 Anesthesia Cuca [facility] [id number] 11:33:00 11:33:[address] [facility] 2021-06-02 2021-06-02 Surgery Ivan [facility] [id number] 03:40:00 06:17:00 [facility] 2021-05-29 2021-05-29 Office [facility] [id number] 10:45:00 11:00:00 Visit [facility] 2021-05-29 2021-05-29 Outpatient SLE SLE [id number] [facility] 00:00:00 00:00:00 2021-05-22 2021-05-22 Outpatient EL [facility] [id number] [facility] 00:00:00 00:00:00 2021-05-08 2021-05-08 Outpatient EL SLE SLE [id number] [facility] 11:33:34 11:33:34 2021-05-08 2021-05-08 Office Saul Love [facility] [id number] 11:00:00 11:15:00 Visit ThomasFrancisca [facility] 2021-05-08 2021-05-08 Orders [facility] [id number] 00:00:00 00:00:00 Only [facility] 2021-04-19 2021-04-19 Office FERCHO LOVE [id number] [facility] 14:01:59 16:18:12 Visit SAUL AMBULATOR 350.1.13.21 College Y 0.2.7.2.686 [id number] [facility] mik 825 e 2019-11-12 2019-11-12 Outpatient COH COH PDPFEIZ YQQ COH 00:00:00 00:00:00 [id number] 2019-09-28 2019-09-28 [facility] [id number] [facility] 00:00:00 00:00:00 MIHIR Results Test Description Test Time Test Comments Results Result Comments Source POC-Glucose meter 2021-06-15 11:48:35 Test Item Value Reference Range Interpretation Comme nts POC-Glucose Meter (test code = 204 mg/dL 70-110 H : TESTED AT [facility] [address]) [place], [address]: Sales And Marketing Engineer/Techni santana ID = [id number] for Lucille Patel Lab Interpretation (test code = Abnormal 98880-9) [facility] [id number] 11:48:35 Test Item Value Reference Range Interpretation Comments POC-GLUCOSE METER 204 mg/dL 70-110 H : [facility] ([facility]ER) (test code = [facility], 1538) [address]: Sales And Marketing Engineer/Techni santana ID = [id number] for Lucille Christian CBC with platelet count + automated [id number] 09:01:04 Test Item Value Reference Range Interpretation Comments WBC (test code = 6690-2) 9.3 See_Comment [A utomated message] The system StyleQ generated this result transmitted ref erence range: 3.5 - 10 .5 K/L. The refe rence range was not u sed to interpret this result as normal/abnor mal. RBC (test code = 789-8) 2.88 See_Comment L [Au tomated message] The system StyleQ generated this result transmitted ref erence range: 3.93 - 5 .22 M/L. The refe rence range was not u sed to interpret this result as normal/abnor mal. MCHC (test code = 786-4) 32.0 See_Comment L [A utomated message] The system StyleQ generated this result transmitted ref erence range: 32.2 - 3 5.5 GM/DL. The refe rence range was not u sed to interpret this result as normal/abnor mal. Hematocrit (test code = 27.8 % 34.1-44.9 L 4544-3) MCV (test code = 787-2) 96.5 fL 79.4-94.8 H MCH (test code = 785-6) 30.9 pg 25.6-32.2 RDW (test code = 788-0) 14.9 % 11.7-14.4 H Platelets (test code = 209 See_Comment [Aut omated message] 777-3) The system Style[employer] generated this result transmitted ref erence range: 150 - 45 0 K/CU MM. The referen ce range was not u sed to interpret this result as normal/abnor mal. MPV (test code = 10.6 fL 9.4-12.3 17244-6) nRBC (test code = 413) 0 See_Comment [Aut omated message] The system StyleQ generated this result transmitted ref erence range: 0 - 0 /1 00 WBC. The refere nce range was not u sed to interpret this result as normal/abnor mal. % Neutros (test code = 72 % 429) % Lymphs (test code = 17 % 430) % Monos (test code = 8 % 431) % Eos (test code = 432) 2 % % Baso (test code = 437) 1 % # Neutros (test code = 6.65 See_Comment H [Aut omated message] 670) The system StyleQ generated this result transmitted ref erence range: 1.56 - 6 .13 K/L. The refe rence range was not u sed to interpret this result as normal/abnor mal. # Lymphs (test code = 1.61 See_Comment [Auto mated message] 414) The system [employer] generated this result transmitted ref erence range: 1.18 - 3 .74 K/L. The refe rence range was not u sed to interpret this result as normal/abnor mal. # Monos (test code = 0.72 See_Comment H [Autom ated message] 415) The system StyleQ generated this result transmitted ref erence range: 0.24 - 0 .36 K/L. The refe rence range was not u sed to interpret this result as normal/abnor mal. # Eos (test code = 416) 0.22 See_Comment [Au tomated message] The system StyleQ generated this result transmitted ref erence range: 0.04 - 0 .36 K/L. The refe rence range was not u sed to interpret this result as normal/abnor mal. # Baso (test code = 417) 0.05 See_Comment [A utomated message] The system StyleQ generated this result transmitted ref erence range: 0.01 - 0 .08 K/L. The refe rence range was not u sed to interpret this result as normal/abnor mal. Immature 0 % 0-1 Granulocytes-Relative (test code = 2801) Lab Interpretation (test Abnormal code = 17806-1) [facility] W/PLT COUNT & AUTO [id number] 09:01:04 Test Item Value Reference Range Interpretation Comments WHITE BLOOD CELL COUNT (BEAKER) 9.3 K/ L 3.5-10.5 (test code = 775) RED BLOOD CELL COUNT (BEAKER) 2.88 M/ L 3.93-5.22 L (test code = 761) HEMOGLOBIN (BEAKER) (test code = 8.9 GM/DL 11.2-15.7 L 410) HEMATOCRIT (BEAKER) (test code = 27.8 % 34.1-44.9 L 411) MEAN CORPUSCULAR VOLUME (BEAKER) 96.5 fL 79.4-94.8 H (test code = 753) MEAN CORPUSCULAR HEMOGLOBIN 30.9 pg 25.6-32.2 (BEAKER) (test code = 751) MEAN CORPUSCULAR HEMOGLOBIN CONC 32.0 GM/DL 32.2-35.5 L (BEAKER) (test code = 752) RED CELL DISTRIBUTION WIDTH 14.9 % 11.7-14.4 H (BEAKER) (test code = 412) PLATELET COUNT (BEAKER) (test 209 K/CU MM 150-450 code = 756) MEAN PLATELET VOLUME (BEAKER) 10.6 fL 9.4-12.3 (test code = 754) NUCLEATED RED BLOOD CELLS 0 /100 WBC 0-0 (BEAKER) (test code = 413) NEUTROPHILS RELATIVE PERCENT 72 % (BEAKER) (test code = 429) LYMPHOCYTES RELATIVE PERCENT 17 % (BEAKER) (test code = 430) MONOCYTES RELATIVE PERCENT 8 % (BEAKER) (test code = 431) EOSINOPHILS RELATIVE PERCENT 2 % (BEAKER) (test code = 432) BASOPHILS RELATIVE PERCENT 1 % (BEAKER) (test code = 437) NEUTROPHILS ABSOLUTE COUNT 6.65 K/ L 1.56-6.13 H (BEAKER) (test code = 670) LYMPHOCYTES ABSOLUTE COUNT 1.61 K/ L 1.18-3.74 (BEAKER) (test code = 414) MONOCYTES ABSOLUTE COUNT (BEAKER) 0.72 K/ L 0.24-0.36 H (test code = 415) EOSINOPHILS ABSOLUTE COUNT 0.22 K/ L 0.04-0.36 (BEAKER) (test code = 416) BASOPHILS ABSOLUTE COUNT (BEAKER) 0.05 K/ L 0.01-0.08 (test code = 417) IMMATURE GRANULOCYTES-RELATIVE 0 % 0-1 PERCENT (BEAKER) (test code = 2801) POCT-GLUCOSE [id number] 08:34:15 Test Item Value Reference Range Interpretation Comments POC-GLUCOSE METER 151 mg/dL 70-110 H : TESTED A T [facility] [address] (BEAKER) (test code = [place], [address]) [address]: Sales And Marketing Engineer/Techni santana ID = [id number] for Lina Kuo Basic Metabolic [id number] 06:53:37 Test Item Value Reference Range Interpretation Comments Sodium (test code = 140 meq/L 441-676 9906-2) Potassium (test code = 4.8 meq/L 3.5-5.1 2823-3) Chloride (test code = 112 meq/L 98-107 H 2075-0) CO2 (test code = 23 meq/L 22-29 2028-9) BUN (test code = 32 mg/dL 7-21 H 3094-0) Creatinine (test code 1.26 mg/dL 0.57-1.25 H = 2160-0) Glucose (test code = 102 mg/dL 70-105 2345-7) Calcium (test code = 8.8 mg/dL 8.4-10.2 21386-3) EGFR (test code = 41 mL/min/1.73 [place] [address]-1) NOT ACCURATE CREATININE CLEARANCE IN PREDICTING GLOMERULAR FILTRATION RATE . ESTIMATED GFR I S NOT APPLICABLE FOR DIALYSIS PATIENTS. KAILA (test code = KAILA) Sales And Marketing Engineer ID - DANO Quinonez Lab Interpretation Abnormal (test code = 62636-3) [facility] 06:53:37 Test Item Value Reference Range Interpretation Comments Magnesium (test code = 2.2 mg/dL 1.6-2.6 77524-3) KAILA (test code = KAILA) Sales And Marketing Engineer ID Von Quinonez Lab Interpretation (test Normal code = 48639-8) [facility] MET[facility]OLIC [id number] 06:53:37 Test Item Value Reference Range Interpretation Comments SODIUM (BEAKER) 140 meq/L 136-145 (test code = 381) POTASSIUM (BEAKER) 4.8 meq/L 3.5-5.1 (test code = 379) CHLORIDE (BEAKER) 112 meq/L 98-107 H (test code = 382) CO2 (BEAKER) (test 23 meq/L 22-29 code = 355) BLOOD UREA NITROGEN 32 mg/dL 7-21 H (BEAKER) (test code = 354) CREATININE (BEAKER) 1.26 mg/dL 0.57-1.25 H (test code = 358) GLUCOSE RANDOM 102 mg/dL 70-105 (BEAKER) (test code = 652) CALCIUM (BEAKER) 8.8 mg/dL 8.4-10.2 (test code = 697) EGFR (BEAKER) (test 41 mL/min/1.73 ESTIMA CARSON GFR IS code = 1092) sq m NOT ACCURATE CREATININE CLEARANCE IN PREDICTING GLOMERULAR FILTRATION RATE . ESTIMATED GFR I S NOT APPLICABLE FOR DIALYSIS PATIEN TS. Sales And Marketing Engineer ID Von MATSON [id number] 06:53:37 Test Item Value Reference Range Interpretation Comments MAGNESIUM (BEAKER) (test code = 2.2 mg/dL 1.6-2.6 627) Sales And Marketing Engineer ID Von MATSON MPOCT-GLUCOSE [id number] 06:07:32 Test Item Value Reference Range Interpretation Comments POC-GLUCOSE METER 154 mg/dL 70-110 H : TESTED A T [facility] 6720 (BEAKER) (test code = [place], 1538) [address]: Sales And Marketing Engineer/Techni santana ID = [id number] for PER JONES Prepare Leuko-Red [id number] 23:55:00 Test Item Value Reference Range Interpretation Comments CROSSMATCH (test code = 2264) COMPATIBLE Unit ABO (test code = A Neg 2880473) UNIT NUMBER (test code = [id number] 7640) Status (test code = 1757423) [facility] Product (test code RED BLOOD CELLS = 2263) PRODUCT CODE (test code = A0556Z60 933-2) [place] [facility] [id number] 17:16:54 Test Item Value Reference Range Interpretation Comments POC-GLUCOSE METER 163 mg/dL 70-110 H : TESTED A T [facility] 6720 (BEAKER) (test code = [facility], 1538) 25555: Sales And Marketing Engineer/Techni santana ID = [id number] for ESPINOZA WHALEY POCT-GLUCOSE [id number] 12:02:33 Test Item Value Reference Range Interpretation Comments POC-GLUCOSE METER 172 mg/dL 70-110 H : TESTED A T [facility] 6720 (BEAKER) (test code = [facility], 1538) 67267: Sales And Marketing Engineer/Techni santana ID = [id number] for ESPINOZA WHALEY POCT-GLUCOSE [id number] 08:36:14 Test Item Value Reference Range Interpretation Comments POC-GLUCOSE METER 132 mg/dL 70-110 H : TESTED A T [facility] 6720 (BEAKER) (test code = [facility], 1538) 186[address]: Sales And Marketing Engineer/Techni santana ID = [id number] for ESPINOZA WHALEY BASIC METABOLIC [id number] 06:42:43 Test Item Value Reference Range Interpretation Comments SODIUM (BEAKER) 141 meq/L 136-145 (test code = 381) POTASSIUM (BEAKER) 4.8 meq/L 3.5-5.1 (test code = 379) CHLORIDE (BEAKER) 111 meq/L 98-107 H (test code = 382) CO2 (BEAKER) (test 22 meq/L 22-29 code = 355) BLOOD UREA NITROGEN 35 mg/dL 7-21 H (BEAKER) (test code = 354) CREATININE (BEAKER) 1.47 mg/dL 0.57-1.25 H (test code = 358) GLUCOSE RANDOM 109 mg/dL 70-105 H (BEAKER) (test code = 652) CALCIUM (BEAKER) 8.6 mg/dL 8.4-10.2 (test code = 697) EGFR (BEAKER) (test 34 mL/min/1.73 ESTIMA CARSON GFR IS code = 1092) sq m NOT ACCURATE CREATININE CLEARANCE IN PREDICTING GLOMERULAR FILTRATION RATE . ESTIMATED GFR I S NOT APPLICABLE FOR DIALYSIS PATIEN TS. Sales And Marketing Engineer ID - DANO [id number] 06:42:43 Test Item Value Reference Range Interpretation Comments MAGNESIUM (FRANDY) (test code = 2.3 mg/dL 1.6-2.6 627) Sales And Marketing Engineer ID - DANO MPOCT-GLUCOSE [id number] 21:56:09 Test Item Value Reference Range Interpretation Comments POC-GLUCOSE METER 196 mg/dL 70-110 H : TESTED A T [facility] 6720 (FRANDY) (test code = [place], 1538) 89[address]: Sales And Marketing Engineer/Techni santana ID = [id number] for Soledad Jurado U/S, EXTREMITY (NON-VASCULAR), RIGHT, [id number] 18:33:00Reason for exam:->[facility] 1940 Sex: FFINAL REPORT TECHNIQUE: Focused grayscale ultrasound of the right groin. INDICATION: 80-year-old woman with groin hematoma. COMPARISON: None. IMPRESSION:Soft tissue edema in the right groin without discrete hematoma or fluid collection. Signed: Da Long Verified Date/Time: 06/13/2021 18:33:55 CBC W/PLT COUNT & AUTO [id number] 17:29:43 Test Item Value Reference Range Interpretation Comments WHITE BLOOD CELL COUNT (BEAKER) 13.9 K/ L 3.5-10.5 H (test code = 775) RED BLOOD CELL COUNT (BEAKER) 2.81 M/ L 3.93-5.22 L (test code = 761) HEMOGLOBIN (BEAKER) (test code = 8.7 GM/DL 11.2-15.7 L 410) HEMATOCRIT (BEAKER) (test code = 25.9 % 34.1-44.9 L 411) MEAN CORPUSCULAR VOLUME (BEAKER) 92.2 fL 79.4-94.8 (test code = 753) MEAN CORPUSCULAR HEMOGLOBIN 31.0 pg 25.6-32.2 (BEAKER) (test code = 751) MEAN CORPUSCULAR HEMOGLOBIN CONC 33.6 GM/DL 32.2-35.5 (BEAKER) (test code = 752) RED CELL DISTRIBUTION WIDTH 15.0 % 11.7-14.4 H (BEAKER) (test code = 412) PLATELET COUNT (BEAKER) (test 194 K/CU MM 150-450 code = 756) MEAN PLATELET VOLUME (BEAKER) 10.4 fL 9.4-12.3 (test code = 754) NUCLEATED RED BLOOD CELLS 0 /100 WBC 0-0 (BEAKER) (test code = 413) NEUTROPHILS RELATIVE PERCENT 76 % (BEAKER) (test code = 429) LYMPHOCYTES RELATIVE PERCENT 15 % (BEAKER) (test code = 430) MONOCYTES RELATIVE PERCENT 9 % (BEAKER) (test code = 431) EOSINOPHILS RELATIVE PERCENT 0 % (BEAKER) (test code = 432) BASOPHILS RELATIVE PERCENT 0 % (BEAKER) (test code = 437) NEUTROPHILS ABSOLUTE COUNT 10.57 K/ L 1.56-6.13 H (BEAKER) (test code = 670) LYMPHOCYTES ABSOLUTE COUNT 2.07 K/ L 1.18-3.74 (BEAKER) (test code = 414) MONOCYTES ABSOLUTE COUNT (BEAKER) 1.18 K/ L 0.24-0.36 H (test code = 415) EOSINOPHILS ABSOLUTE COUNT 0.01 K/ L 0.04-0.36 L (BEAKER) (test code = 416) BASOPHILS ABSOLUTE COUNT (BEAKER) 0.03 K/ L 0.01-0.08 (test code = 417) IMMATURE GRANULOCYTES-RELATIVE 0 % 0-1 PERCENT (BEAKER) (test code = 2801) POCT-GLUCOSE [id number] 16:13:57 Test Item Value Reference Range Interpretation Comments POC-GLUCOSE METER 246 mg/dL 70-110 H : [facility] (FRANDY[facility] (test code = [place], 1538) 93[address]: Sales And Marketing Engineer/Techni santana ID = [id number] for AR ESPINOZA HERNANDEZ U/S, RENAL, [id number] 15:23:00Reason for exam:->right renal mass [facility] : 1940 Sex: FFINAL REPORT Renal ultrasound dated 06/13/2021 Comment: Real-time transabdominal renal ultrasound was performed.Right kidney measures 8.4 x 4.3 x 5.0 cm. Left kidney measures 9.1 x 4.0x 4.2 cm. Right renal cortex measures 1.2 cm. Left renal cortex measures 1.1 cm. Echogenicity of both renal parenchyma is normal. A 2.4 x 2.3 x 2.1 cm echogenic mass is seen in the mid inferior pole rig ht kidney suggestive of angiomyolipoma. This lesion is corresponding to the cystic lesion on the previous CT examination. The urinary bladder measures 264 cc. Doppler ultrasound demonstrates patent main renal artery and vein bilaterally. A 9.3 x 3.1 x 10.3 cm anechoic collection is seen in the anterior pelvis anterior to the urinary bladder consistent with the patient's rectus hematoma. 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 Signed: Abhinav Card MDReport Verified Date/Time: 06/13/2021 15:23:50 -GLUCOSE [id number] 12:29:20 Test Item Value Reference Range Interpretation Comments POC-GLUCOSE METER 259 mg/dL 70-110 H : TESTED A T [facility] 6720 (BEAKER) (test code = [facility], 1538) 00838: Sales And Marketing Engineer/Techni santana ID = [id number] for FERDINAND GRANGER POCT-GLUCOSE [id number] 07:27:59 Test Item Value Reference Range Interpretation Comments POC-GLUCOSE METER 220 mg/dL 70-110 H : TESTED A T [facility] 6720 (BEAKER) (test code = [facility], 1538) 81402: Sales And Marketing Engineer/Techni santana ID = [id number] for FERDINAND GRANGER BASIC METABOLIC [id number] 06:16:33 Test Item Value Reference Range Interpretation Comments SODIUM (BEAKER) 135 meq/L 136-145 L (test code = 381) POTASSIUM (BEAKER) 5.1 meq/L 3.5-5.1 (test code = 379) CHLORIDE (BEAKER) 107 meq/L 98-107 (test code = 382) CO2 (BEAKER) (test 19 meq/L 22-29 L code = 355) BLOOD UREA NITROGEN 40 mg/dL 7-21 H (BEAKER) (test code = 354) CREATININE (BEAKER) 1.75 mg/dL 0.57-1.25 H (test code = 358) GLUCOSE RANDOM 261 mg/dL 70-105 H (BEAKER) (test code = 652) CALCIUM (BEAKER) 8.3 mg/dL 8.4-10.2 L (test code = 697) EGFR (BEAKER) (test 28 mL/min/1.73 ESTIMA CRASON GFR IS code = 1092) sq m NOT ACCURATE CREATININE CLEARANCE IN PREDICTING GLOMERULAR FILTRATION RATE . ESTIMATED GFR I S NOT APPLICABLE FOR DIALYSIS PATIEN TS. Sales And Marketing Engineer ID - [id number] 06:10:16 Test Item Value Reference Range Interpretation Comments MAGNESIUM (BEAKER) (test code = 2.2 mg/dL 1.6-2.6 627) Sales And Marketing Engineer ID - [id number] (Hemogram only)2021-06-13 06:09:05 Test Item Value Reference Range Interpretation Comments WBC (test code = 6690-2) 9.3 See_Comment [A utomated message] The system StyleQ generated this result transmitted ref erence range: 3.5 - 10 .5 K/L. The refe rence range was not u sed to interpret this result as normal/abnor mal. RBC (test code = 789-8) 2.30 See_Comment L [Au tomated message] The system StyleQ generated this result transmitted ref erence range: 3.93 - 5 .22 M/L. The refe rence range was not u sed to interpret this result as normal/abnor mal. MCHC (test code = 786-4) 32.9 See_Comment L [A utomated message] The system StyleQ generated this result transmitted ref erence range: 32.2 - 3 5.5 GM/DL. The refe rence range was not u sed to interpret this result as normal/abnor mal. Hematocrit (test code = 21.6 % 34.1-44.9 L 4544-3) MCV (test code = 787-2) 93.9 fL 79.4-94.8 MCH (test code = 785-6) 30.9 pg 25.6-32.2 RDW (test code = 788-0) 13.7 % 11.7-14.4 Platelets (test code = 182 See_Comment [Aut omated message] 777-3) The system StyleQ generated this result transmitted ref erence range: 150 - 45 0 K/CU MM. The referen ce range was not u sed to interpret this result as normal/abnor mal. MPV (test code = 10.5 fL 9.4-12.3 32700-8) nRBC (test code = 413) 0 See_Comment [Aut omated message] The system StyleQ generated this result transmitted ref erence range: 0 - 0 /1 00 WBC. The refere nce range was not u sed to interpret this result as normal/abnor mal. Lab Interpretation (test Abnormal code = 94123-9) [facility] (HEMOGRAM ONLY)2021-06-13 06:09:05 Test Item Value Reference Range Interpretation Comments WHITE BLOOD CELL COUNT (BEAKER) 9.3 K/ L 3.5-10.5 (test code = 775) RED BLOOD CELL COUNT (BEAKER) 2.30 M/ L 3.93-5.22 L (test code = 761) HEMOGLOBIN (BEAKER) (test code = 7.1 GM/DL 11.2-15.7 L 410) HEMATOCRIT (BEAKER) (test code = 21.6 % 34.1-44.9 L 411) MEAN CORPUSCULAR VOLUME (BEAKER) 93.9 fL 79.4-94.8 (test code = 753) MEAN CORPUSCULAR HEMOGLOBIN 30.9 pg 25.6-32.2 (BEAKER) (test code = 751) MEAN CORPUSCULAR HEMOGLOBIN CONC 32.9 GM/DL 32.2-35.5 (BEAKER) (test code = 752) RED CELL DISTRIBUTION WIDTH 13.7 % 11.7-14.4 (BEAKER) (test code = 412) PLATELET COUNT (BEAKER) (test 182 K/CU MM 150-450 code = 756) MEAN PLATELET VOLUME (BEAKER) 10.5 fL 9.4-12.3 (test code = 754) NUCLEATED RED BLOOD CELLS 0 /100 WBC 0-0 (BEAKER) (test code = 413) POCT-GLUCOSE [id number] 21:29:24 Test Item Value Reference Range Interpretation Comments POC-GLUCOSE METER 407 mg/dL 70-110 HH : TESTED A T [facility] 6720 (BEAKER) (test code = [place], 1538) [address]: Sales And Marketing Engineer/Techni santana ID = [id number] for JAY JAY VENTURA CBC W/PLT COUNT & AUTO [id number] 19:48:15 Test Item Value Reference Range Interpretation Comments WHITE BLOOD CELL COUNT (BEAKER) 10.3 K/ L 3.5-10.5 (test code = 775) RED BLOOD CELL COUNT (BEAKER) 2.73 M/ L 3.93-5.22 L (test code = 761) HEMOGLOBIN (BEAKER) (test code = 8.4 GM/DL 11.2-15.7 L 410) HEMATOCRIT (BEAKER) (test code = 25.7 % 34.1-44.9 L 411) MEAN CORPUSCULAR VOLUME (BEAKER) 94.1 fL 79.4-94.8 (test code = 753) MEAN CORPUSCULAR HEMOGLOBIN 30.8 pg 25.6-32.2 (BEAKER) (test code = 751) MEAN CORPUSCULAR HEMOGLOBIN CONC 32.7 GM/DL 32.2-35.5 (BEAKER) (test code = 752) RED CELL DISTRIBUTION WIDTH 13.6 % 11.7-14.4 (BEAKER) (test code = 412) PLATELET COUNT (BEAKER) (test 200 K/CU MM 150-450 code = 756) MEAN PLATELET VOLUME (BEAKER) 10.6 fL 9.4-12.3 (test code = 754) NUCLEATED RED BLOOD CELLS 0 /100 WBC 0-0 (BEAKER) (test code = 413) NEUTROPHILS RELATIVE PERCENT 91 % (BEAKER) (test code = 429) LYMPHOCYTES RELATIVE PERCENT 7 % (BEAKER) (test code = 430) MONOCYTES RELATIVE PERCENT 1 % (BEAKER) (test code = 431) EOSINOPHILS RELATIVE PERCENT 0 % (BEAKER) (test code = 432) BASOPHILS RELATIVE PERCENT 0 % (BEAKER) (test code = 437) NEUTROPHILS ABSOLUTE COUNT 9.39 K/ L 1.56-6.13 H (BEAKER) (test code = 670) LYMPHOCYTES ABSOLUTE COUNT 0.69 K/ L 1.18-3.74 L (BEAKER) (test code = 414) MONOCYTES ABSOLUTE COUNT (BEAKER) 0.12 K/ L 0.24-0.36 L (test code = 415) EOSINOPHILS ABSOLUTE COUNT 0.00 K/ L 0.04-0.36 L (BEAKER) (test code = 416) BASOPHILS ABSOLUTE COUNT (BEAKER) 0.01 K/ L 0.01-0.08 (test code = 417) IMMATURE GRANULOCYTES-RELATIVE 1 % 0-1 PERCENT (BEAKER) (test code = 2801) POC ACTIVATED CLOTTING [id number] 17:48:46 Test Item Value Reference Range Interpretation Comments Activated Clotting Time 112 sec : 74 -137 seconds, (test code = 3184-9) Baselin e: TESTED AT [address], [address]: Sales And Marketing Engineer/Techni santana ID = [id number] for MA THEW, MINI [id number] 17:48:46 Test Item Value Reference Range Interpretation Comments ACTIVATED CLOTTING TIME 112 sec : 74 -137 seconds, (BEAKER) (test code = Baseli ne: TESTED AT 441) [address], [address]: Sales And Marketing Engineer/Techni santana ID = [id number] for MA THEW, MINI [id number] 13:36:18 Test Item Value Reference Range Interpretation Comments ACTIVATED CLOTTING TIME 231 sec : 74 -137 seconds, (BEAKER) (test code = Baseli ne: TESTED AT 441) [address], [address]: Sales And Marketing Engineer/Techni santana ID = [id number] for MARI RDZ POCT-GLUCOSE [id number] 13:17:07 Test Item Value Reference Range Interpretation Comments POC-GLUCOSE METER 150 mg/dL 70-110 H : TESTED A T [place] [address] (BEAKER) (test code = KAVYA R [facility], 1538) [address]: Sales And Marketing Engineer/Techni santana ID = [id number] for Go , Aloah [id number] 11:39:20 Test Item Value Reference Range Interpretation Comments ACTIVATED CLOTTING TIME 249 sec : 74 -137 seconds, (BEAKER) (test code = Baseli ne: TESTED AT 441) [address], [address]: Sales And Marketing Engineer/Techni santana ID = [id number] for Ga rza (contract), Aar on [id number] 11:39:19 Test Item Value Reference Range Interpretation Comments ACTIVATED CLOTTING TIME 261 sec : 74 -137 seconds, (BEAKER) (test code = Baseli ne: TESTED AT 441) [address], [address]: Sales And Marketing Engineer/Techni santana ID = [id number] for Ga rza (contract), Aar on [id number] 11:39:19 Test Item Value Reference Range Interpretation Comments ACTIVATED CLOTTING TIME 249 sec : 74 -137 seconds, (BEAKER) (test code = Baseli ne: TESTED AT 441) [address], [address]: Sales And Marketing Engineer/Techni santana ID = [id number] for Ga rza (contract), Aar on POCT-GLUCOSE [id number] 08:09:18 Test Item Value Reference Range Interpretation Comments POC-GLUCOSE METER 104 mg/dL 70-110 : TESTED A T [facility] 6720 (BEAKER) (test code = [place], 1538) [address]: Sales And Marketing Engineer/Techni santana ID = [id number] for Senia Gomes BASIC METABOLIC [id number] 05:15:33 Test Item Value Reference Range Interpretation Comments SODIUM (BEAKER) 141 meq/L 136-145 (test code = 381) POTASSIUM (BEAKER) 4.5 meq/L 3.5-5.1 (test code = 379) CHLORIDE (BEAKER) 110 meq/L 98-107 H (test code = 382) CO2 (BEAKER) (test 25 meq/L 22-29 code = 355) BLOOD UREA NITROGEN 22 mg/dL 7-21 H (BEAKER) (test code = 354) CREATININE (BEAKER) 1.22 mg/dL 0.57-1.25 (test code = 358) GLUCOSE RANDOM 105 mg/dL 70-105 (BEAKER) (test code = 652) CALCIUM (BEAKER) 8.9 mg/dL 8.4-10.2 (test code = 697) EGFR (BEAKER) (test 42 mL/min/1.73 ESTIMA CARSON GFR IS code = 1092) sq m NOT ACCURATE CREATININE CLEARANCE IN PREDICTING GLOMERULAR FILTRATION RATE . ESTIMATED GFR I S NOT APPLICABLE FOR DIALYSIS PATIEN TS. Sales And Marketing Engineer ID - [id number] 05:15:33 Test Item Value Reference Range Interpretation Comments MAGNESIUM (BEAKER) (test code = 2.0 mg/dL 1.6-2.6 627) Sales And Marketing Engineer ID - ADMINCBC (HEMOGRAM ONLY)2021-06-12 04:52:21 Test Item Value Reference Range Interpretation Comments WHITE BLOOD CELL COUNT (BEAKER) 6.1 K/ L 3.5-10.5 (test code = 775) RED BLOOD CELL COUNT (BEAKER) 2.79 M/ L 3.93-5.22 L (test code = 761) HEMOGLOBIN (BEAKER) (test code = 8.5 GM/DL 11.2-15.7 L 410) HEMATOCRIT (BEAKER) (test code = 25.8 % 34.1-44.9 L 411) MEAN CORPUSCULAR VOLUME (BEAKER) 92.5 fL 79.4-94.8 (test code = 753) MEAN CORPUSCULAR HEMOGLOBIN 30.5 pg 25.6-32.2 (BEAKER) (test code = 751) MEAN CORPUSCULAR HEMOGLOBIN CONC 32.9 GM/DL 32.2-35.5 (BEAKER) (test code = 752) RED CELL DISTRIBUTION WIDTH 13.6 % 11.7-14.4 (BEAKER) (test code = 412) PLATELET COUNT (BEAKER) (test 165 K/CU MM 150-450 code = 756) MEAN PLATELET VOLUME (BEAKER) 10.3 fL 9.4-12.3 (test code = 754) NUCLEATED RED BLOOD CELLS 0 /100 WBC 0-0 (BEAKER) (test code = 413) SARS-CoV2/RT-PCR (Asymptomatic ONLY)2021-06-12 01:56:31 Test Item Value Reference Range Interpretation Comments SARS-COV2/RT-PCR Negative Not Detected, (test code = Negative, See 88969-1) external report for linked test SARS-COV-2 [facility] PERFORM[facility] (test code = 81772-2) KAILA (test code = Negative result for this KAILA) test determines that SARS-CoV-2 RNA was not present in the specimen above the Limit of Detection (LOD). However, Negative results do not preclude SARS-CoV-2 infection and should not be used as the sole basis for treatment or patient management decisions. Negative results must be combined with clinical observations, patient history, and epidemiological information. A false negative result may occur if a specimen is improperly collected, transported or handled. A false negative result should be considered if patient's recent exposures or clinical presentation indicate that COVID-19 (SARS-CoV-2) is likely and diagnostic tests for other causes of illness are negative. Re-testing should be considered in cases of suspected false negatives. The limit of detection for this assay [...] of the Act. Fact Sheet for Healthcare Providers:https://www.[employer]/sites/default/f chica/product/documents/F act_Sheet_HC_Providers_L rxf_CGGF-MwG-7.pdf Fact Sheet for Healthcare Patients:https://www.[employer]/sites/default/fi les/product/documents/Fa ct_Sheet_Patients_Lyra_S ARS-CoV-2.pdf Performing Laboratory:[facility]OV2/RT-PCR ([facility])2021-06-12 01:56:31 Test Item Value Reference Range Interpretation Comments SARS-COV2/RT-PCR (test Negative Not Detected, Negative, code = 0854757) See external report for linked test SARS-COV-[address] [facility] (test code = 7889824) Negative result for this test determines that SARS-CoV-2 RNA was not present in the specimen above the Limit of Detection (LOD). However, Negative results do not preclude SARS-CoV-2 infection and should not be used as the sole basis for treatment or patient management decisions. Negative results must be combined with clinical observations, patient history, and epidemiological information. A false negative result may occur if a specimen is improperly collected, transported or handled. A false negative result should be considered if patient's recent exposures or clinical presentation indicate that COVID-19 (SARS-CoV-2) is likely and diagnostic tests for other causes of illness are negative. Re-testing should be considered in cases of suspected false negatives.The limit of detection for this assay is 800 copies/mL.This SARS CoV-2 test is a real-time RT-PCR [...] justifying the authorization of the emergency use ofin vitro diagnostic tests for detection and/or diagnosis of COVID-19 is terminated under Section 564(b)(2) of the Act or the EUA is revoked under Section 564(g) of the Act.Fact Sheet for Healthcare Prov iders:https://www.[employer]/sites/default/files/product/documents/Fact_Sheet_HC _Hdhzidycs_Fbqf_FDQA-MyY-6.pdfFact Sheet for Healthcare Patients:https://www.[employer]/sites/default/files/product/docume nts/Wutl_Rdidw_Xmeugfyy_Hfst_YCCY-VkS-3.pdfPerforming Laboratory:[facility] [facility].[place], [place] [address]VMNZ-BJWCGKG METER 2021-06-11 21:28:29 Test Item Value Reference Range Interpretation Comments POC-GLUCOSE METER 181 mg/dL 70-110 H : TESTED A T [facility] 6720 (BEAKER) (test code = [facility], 1538) [address]: Sales And Marketing Engineer/Techni santana ID = [id number] for EJ ELAM SE POCT-GLUCOSE [id number] 16:55:29 Test Item Value Reference Range Interpretation Comments POC-GLUCOSE METER 161 mg/dL 70-110 H : TESTED A T [facility] 6720 (BEAKER) (test code = [facility], 1538) [address]: Sales And Marketing Engineer/Techni santana ID = [id number] for SEVERO WATTERS FAROOQ Hemoglobin and [id number] 13:25:57 Test Item Value Reference Range Interpretation Comments Hemoglobin (test code 10.2 See_Comment L [Auto mated = 786-4) message] The system which generated this result transmit carson reference range : 11.2 - 15.7 GM/ DL. The reference range was not u sed to interpret th is result as normal/abnormal . Hematocrit (test code 31.4 % 34.1-44.9 L = 4544-3) KAILA (test code = KAILA) Sales And Marketing Engineer ID - [id number] Lab Interpretation Abnormal (test code = 46270-7) [facility] [place] [facility]HEMOGLOB[facility] AND [id number] 13:25:57 Test Item Value Reference Range Interpretation Comments HEMOGLOBIN (BEAKER) (test code = 10.2 GM/DL 11.2-15.7 L 410) HEMATOCRIT (BEAKER) (test code = 31.4 % 34.1-44.9 L 411) Sales And Marketing Engineer ID - [id number]-GLUCOSE [id number] 11:54:07 Test Item Value Reference Range Interpretation Comments POC-GLUCOSE METER 160 mg/dL 70-110 H : TESTED A T [facility] 6720 (BEAKER) (test code = [facility], 1538) 88898: Sales And Marketing Engineer/Techni santana ID = [id number] for FAROOQ TERRY POCT-GLUCOSE [id number] 07:54:12 Test Item Value Reference Range Interpretation Comments POC-GLUCOSE METER 116 mg/dL 70-110 H : TESTED A T [facility] 6720 (BEAKER) (test code = [facility], 1538) 86[address]: Sales And Marketing Engineer/Techni santana ID = [id number] for FAROOQ TERRY BASIC METABOLIC [id number] 05:07:58 Test Item Value Reference Range Interpretation Comments SODIUM (BEAKER) 138 meq/L 136-145 (test code = 381) POTASSIUM (BEAKER) 4.3 meq/L 3.5-5.1 (test code = 379) CHLORIDE (BEAKER) 108 meq/L 98-107 H (test code = 382) CO2 (BEAKER) (test 24 meq/L 22-29 code = 355) BLOOD UREA NITROGEN 23 mg/dL 7-21 H (BEAKER) (test code = [...] S NOT APPLICABLE FOR DIALYSIS PATIEN TS. Sales And Marketing Engineer ID - SOPHIA [id number] 05:07:58 Test Item Value Reference Range Interpretation Comments MAGNESIUM (BEAKER) (test code = 2.0 mg/dL 1.6-2.6 627) Sales And Marketing Engineer ID - SOPHIA [facility] (HEMOGRAM ONLY)2021-06-11 04:51:31 Test Item Value Reference Range Interpretation Comments WHITE BLOOD CELL COUNT (BEAKER) 5.4 K/ L 3.5-10.5 (test code = 775) RED BLOOD CELL COUNT (BEAKER) 2.77 M/ L 3.93-5.22 L (test code = 761) HEMOGLOBIN (BEAKER) (test code = 8.4 GM/DL 11.2-15.7 L 410) HEMATOCRIT (BEAKER) (test code = 26.6 % 34.1-44.9 L 411) MEAN CORPUSCULAR VOLUME (BEAKER) 96.0 fL 79.4-94.8 H (test code = 753) MEAN CORPUSCULAR HEMOGLOBIN 30.3 pg 25.6-32.2 (BEAKER) (test code = 751) MEAN CORPUSCULAR HEMOGLOBIN CONC 31.6 GM/DL 32.2-35.5 L (BEAKER) (test code = 752) RED CELL DISTRIBUTION WIDTH 13.6 % 11.7-14.4 (BEAKER) (test code = 412) PLATELET COUNT (BEAKER) (test 146 K/CU MM 150-450 L code = 756) MEAN PLATELET VOLUME (BEAKER) 10.4 fL 9.4-12.3 (test code = 754) NUCLEATED RED BLOOD CELLS 0 /100 WBC 0-0 (BEAKER) (test code = 413) POCT-GLUCOSE [id number] 21:20:37 Test Item Value Reference Range Interpretation Comments POC-GLUCOSE METER 181 mg/dL 70-110 H : TESTED A T [facility] [facility] 6720 (BEAKER) (test code = [place], 1538) [address]: Sales And Marketing Engineer/Techni santana ID = [id number] for EJ ELAM SE POCT-GLUCOSE [id number] 17:25:36 Test Item Value Reference Range Interpretation Comments POC-GLUCOSE METER 159 mg/dL 70-110 H : TESTED A T [facility] 6720 (BEAKER) (test code = [place], 1538) 08450: Sales And Marketing Engineer/Techni santana ID = [id number] for Gi Jaime reno Urinalysis w/Microscopic + Reflex to [id number] 14:39:06 Test Item Value Reference Range Interpretation Comments Color, UA (test code Light Yellow = 5778-6) Clarity, UA (test Hazy code = 5767-9) Specific [place], UA 1.011 1.001-1.035 (test code = 5811-5) pH, UA (test code = 6.0 5.0-8.0 5803-2) Protein, UA (test Negative Negative code = 11754-9) Glucose, UA (test 150 mg/dL Negative A code = 365) Ketones, UA (test Negative Negative code = 2514-8) Bilirubin, UA (test Negative Negative code = 59476-8) Blood, UA (test code Negative Negative = 83635-3) Nitrite, UA (test Negative Negative code = 5802-4) Leukocytes, UA (test Large Negative A code = 5799-2) Urobilinogen, UA 0.2 mg/dL 0.2-1.0 (test code = 84193-0) RBC, UA (test code = 4 See_Comment [Autom ated 50780-1) message] The system which generated this result transmitted reference range : /HPF. The reference range was not used to interpret this result as normal/abnormal . WBC, UA (test code = 43 See_Comment [Autom ated 5821-4) message] The system which generated this result transmitted reference range : /HPF. The reference range was not used to interpret this result as normal/abnormal . Bacteria, UA (test Occasional code = 25017-0) Squam Epithel, UA 3 See_Comment [Automate d (test code = 51858-2) messag e] The system which generated this result transmitted reference range : /HPF. The reference range was not used to interpret this result as normal/abnormal . Crystals, Urine (test None Seen code = 23379-3) Specimen Source (test code = 2795) KAILA (test code = KAILA) Sales And Marketing Engineer ID - [auto]Sales And Marketing Engineer ID - tech Lab Interpretation Abnormal (test code = 18157-8) [place] [facility] [id number] 14:39:06 Test Item Value Reference Range Interpretation Comments COLOR (BEAKER) (test code = 470) Light Yellow CLARITY (BEAKER) (test code = Hazy 469) SPECIFIC GRAVITY UA (BEAKER) 1.011 1.001-1.035 (test code = 468) PH UA (BEAKER) (test code = 467) 6.0 5.0-8.0 PROTEIN UA (BEAKER) (test code = Negative Negative 464) GLUCOSE UA (BEAKER) (test code = 150 mg/dL Negative A 365) KETONES UA (BEAKER) (test code = Negative Negative 371) BILIRUBIN UA (BEAKER) (test code Negative Negative = 462) BLOOD UA (BEAKER) (test code = Negative Negative 461) NITRITE UA (BEAKER) (test code = Negative Negative 465) LEUKOCYTE ESTERASE UA (BEAKER) Large Negative A (test code = 466) UROBILINOGEN UA (BEAKER) (test 0.2 mg/dL 0.2-1.0 code = 463) RBC UA (BEAKER) (test code = 4 /HPF 519) WBC UA (BEAKER) (test code = 43 /HPF 520) BACTERIA (BEAKER) (test code = Occasional 517) SQUAMOUS EPITHELIAL (BEAKER) 3 /HPF (test code = 516) CRYSTALS, URINE (BEAKER) (test None Seen code = 1521) SOURCE(BEAKER) (test code = 2795) Sales And Marketing Engineer ID - [auto]Sales And Marketing Engineer ID - techPOCT-GLUCOSE [id number] 11:39:56 Test Item Value Reference Range Interpretation Comments POC-GLUCOSE METER 160 mg/dL 70-110 H : TESTED A T [facility] 6720 (BEAKER) (test code = [place], 1538) [address]: Sales And Marketing Engineer/Techni santana ID = [id number] for Jaime Aguilar POCT-GLUCOSE [id number] 07:57:12 Test Item Value Reference Range Interpretation Comments POC-GLUCOSE METER 111 mg/dL 70-110 H : TESTED A T [facility] 6720 (BEAKER) (test code = [place], 1538) 60678: Sales And Marketing Engineer/Techni santana ID = [id number] for Jaime Aguilar [id number] 06:16:01 Test Item Value Reference Range Interpretation Comments MAGNESIUM (BEAKER) (test code = 2.0 mg/dL 1.6-2.6 627) Sales And Marketing Engineer ID - ADMINBASIC METABOLIC [id number] 06:16:00 Test Item Value Reference Range Interpretation Comments SODIUM (BEAKER) 137 meq/L 136-145 (test code = 381) POTASSIUM (BEAKER) 4.4 meq/L 3.5-5.1 (test code = 379) CHLORIDE (BEAKER) 108 meq/L 98-107 H (test code = 382) CO2 (BEAKER) (test 23 meq/L 22-29 code = 355) BLOOD UREA NITROGEN 20 mg/dL 7-21 (BEAKER) (test code = 354) CREATININE (BEAKER) 1.08 mg/dL 0.57-1.25 (test code = 358) GLUCOSE RANDOM 105 mg/dL 70-105 (BEAKER) (test code = 652) CALCIUM (BEAKER) 8.9 mg/dL 8.4-10.2 (test code = 697) EGFR (BEAKER) (test 49 mL/min/1.73 ESTIMA CARSON GFR IS code = 1092) sq m NOT ACCURATE CREATININE CLEARANCE IN PREDICTING GLOMERULAR FILTRATION RATE . ESTIMATED GFR I S NOT APPLICABLE FOR DIALYSIS PATIEN TS. Sales And Marketing Engineer ID - ADMINCBC (HEMOGRAM ONLY)2021-06-10 05:44:12 Test Item Value Reference Range Interpretation Comments WHITE BLOOD CELL COUNT (BEAKER) 5.6 K/ L 3.5-10.5 (test code = 775) RED BLOOD CELL COUNT (BEAKER) 2.95 M/ L 3.93-5.22 L (test code = 761) HEMOGLOBIN (BEAKER) (test code = 9.0 GM/DL 11.2-15.7 L 410) HEMATOCRIT (BEAKER) (test code = 28.0 % 34.1-44.9 L 411) MEAN CORPUSCULAR VOLUME (BEAKER) 94.9 fL 79.4-94.8 H (test code = 753) MEAN CORPUSCULAR HEMOGLOBIN 30.5 pg 25.6-32.2 (BEAKER) (test code = 751) MEAN CORPUSCULAR HEMOGLOBIN CONC 32.1 GM/DL 32.2-35.5 L (BEAKER) (test code = 752) RED CELL DISTRIBUTION WIDTH 13.5 % 11.7-14.4 (BEAKER) (test code = 412) PLATELET COUNT (BEAKER) (test 174 K/CU MM 150-450 code = 756) MEAN PLATELET VOLUME (BEAKER) 10.8 fL 9.4-12.3 (test code = 754) NUCLEATED RED BLOOD CELLS 0 /100 WBC 0-0 (BEAKER) (test code = 413) POCT-GLUCOSE [id number] 21:20:05 Test Item Value Reference Range Interpretation Comments POC-GLUCOSE METER 179 mg/dL 70-110 H : [facility] (BEAKER) (test code = KAVYA Bennett [facility], 1538) 658[address]: Sales And Marketing Engineer/Techni santana ID = [id number] for AIDA JETER SARS-COV2/RT-PCR ([facility])2021-06-09 19:40:01 Test Item Value Reference Range Interpretation Comments SARS-COV2/RT-PCR (test code = Negative Negative [id number]) Negative result for this test determines that SARS-CoV-2 RNA was not present in the specimen above the Limit of Detection (LOD). However, Negative results do not preclude SARS-CoV-2 infection and should not be used as the sole basis for treatment or patient management decisions. Negative results must be combined with clinical observations, patient history, and epidemiological information. A false negative result may occur if a specimen is improperly collected, transported, or handled. A false negative result should be considered if patient's recent exposures or clinical presentation indicate that COVID-19 (SARS-CoV-2) is likely and diagnostic tests for other causes of illness are negative. Re-testing should be considered in cases of suspected false negatives.The limit of detection for this assay is 100 copies/mL.This SARS-CoV-2 test is a real-time RT_PCR test intended for the qualitative detection of [...] is revoked under Section 564(g) of the Act.Testing was performed using the Carranza SARS-CoV-2 assay.Fact Sheet for Healthcare Providers:https://www.Heatmaps.carranza/jose/RT SARS-CoV-2 HCP Fact Sheet 51- 171110.pdfFact Sheet for Healthcare Patients:https://www.Heatmaps.archify/jose/RT SARS-CoV-2 Patient Fact Sheet EN 51-088107X8.pdfPOCT-GLUCOSE [id number] 17:37:05 Test Item Value Reference Range Interpretation Comments POC-GLUCOSE METER 193 mg/dL 70-110 H : TESTED A T [facility] 6720 ([facility]) (test code = [place], 1538) 724[address]: Sales And Marketing Engineer/Techni santana ID = [id number] for Gi les, Adeja PET/CT, CARDIAC PERF REST AND [id number] 14:55:00Reason for exam:->new afib/ flutter in patient with h/o CABG and now with some CP during palpitations. [facility] CENTERName: PRINCE GARCIA RUDD : 1940 Sex: FFINAL REPORT PROCEDURE: MYOCARDIAL PERFUSION PET/CT IMAGING (Rest/Stress)CPT CODE: 61311 INDICATION: Evaluate acute chest pain/discomfort CARDIOVASCULAR PROFILE:CAD History: Prior ACBSymptoms: Chest painRisk Factors: Diabetes, hypertension, hyperlipidemia, peripheral vascular disease, atrial fibrillationBMI: 28.4Medications: Atorvastatin, Plavix, lisinopril, metoprolol, Xarelto STRESS PROTOCOL:Pharmacologic stress was achieved with a 10-second intravenous infusion of regadenoson 0.4 mg. The radiopharmaceutical was administered 30 seconds after the start of the regadenoson infusion. IMAGING PROTOCOL:Limited low-dose CT imaging was performed for attenuation correction. 39.3 mCi ofRb-82 chloride was injected intravenously at rest, and gated PET images were obtained. Then, 38.9 mCi of Rb-82 chloride was injected intravenously at peak stress, and gated PET images were obtained. REST FINDINGS:HR: 60/minBP: 141/42 mmHgPrelim. EKG: NSR with first-degree AV block.Perfusion: Normal.Wall Motion: Normal (LVEF 70%).LV Volume: Normal. STRESS FINDINGS:HR: 89/min (63% of MPHR)BP: 145/57 mmHgPrelim. EKG: >[address] depressions in the anterolateral leads.Symptoms: Chest pain, dy spnea (administered IV aminophylline 125 mg).Perfusion: There is a medium size, moderate severity perfusion defect of the basal to mid inferior LV. There is also a medium to large, mild severity perfusion defect involving the mid to apical anterior segments, mid to apical anterolateral segments, and the apex.Wall Motion: Normal (LVEF 70%).LV Volume: Not significantly changed from rest. IMPRESSION:1. Abnormal study.2. Abnormal myocardial perfusion. There is a medium size, moderate severity reversibleperfusion defect of the basal to mid inferior LV. There is also a medium to large, mild severity reversible perfusion defect involving the mid to apical anterior segments, mid to apical anterolateral segments, and the apex.3. Normal resting LVEF, which does not deteriorate with pharmacologic stress.4.Normal extracardiac tracer distribution.5. There is no prior study for comparison. Signed: Natanael Garcia MDReport Verified Date/Time: 06/09/2021 14:55:31 Reading Location: [address] Reading Room POCT-GLUCOSE [id number] 12:06:08 Test Item Value Reference Range Interpretation Comments POC-GLUCOSE METER 124 mg/dL 70-110 H : TESTED A T [facility] 6720 (BEAKER) (test code = [facility], 1538) 01065: Sales And Marketing Engineer/Techni santana ID = [id number] for Jaime Aguilar HEMOGLOBIN AND [id number] 11:59:02 Test Item Value Reference Range Interpretation Comments HEMOGLOBIN (BEAKER) (test code = 9.7 GM/DL 11.2-15.7 L 410) HEMATOCRIT (BEAKER) (test code = 29.9 % 34.1-44.9 L 411) Sales And Marketing Engineer ID - [id number] ID - [id number]-GLUCOSE [id number] 07:29:23 Test Item Value Reference Range Interpretation Comments POC-GLUCOSE METER 106 mg/dL 70-110 : TESTED A T [facility] 6720 (BEAKER) (test code = [facility], 1538) 74447: Sales And Marketing Engineer/Techni santana ID = [id number] for FAROOQ TERRY [id number] 05:33:34 Test Item Value Reference Range Interpretation Comments MAGNESIUM (BEAKER) (test code = 2.0 mg/dL 1.6-2.6 627) Sales And Marketing Engineer ID - DBBASIC METABOLIC [id number] 05:33:33 Test Item Value Reference Range Interpretation Comments SODIUM (BEAKER) 138 meq/L 136-145 (test code = 381) POTASSIUM (BEAKER) 4.7 meq/L 3.5-5.1 (test code = 379) CHLORIDE (BEAKER) 112 meq/L 98-107 H (test code = 382) CO2 (BEAKER) (test 23 meq/L 22-29 code = 355) BLOOD UREA NITROGEN 22 mg/dL 7-21 H (BEAKER) (test code = 354) CREATININE (BEAKER) 1.23 mg/dL 0.57-1.25 (test code = 358) GLUCOSE RANDOM 125 mg/dL 70-105 H (BEAKER) (test code = 652) CALCIUM (BEAKER) 8.5 mg/dL 8.4-10.2 (test code = 697) EGFR (BEAKER) (test 42 mL/min/1.73 ESTIMA CARSON GFR IS code = 1092) sq m NOT ACCURATE CREATININE CLEARANCE IN PREDICTING GLOMERULAR FILTRATION RATE . ESTIMATED GFR I S NOT APPLICABLE FOR DIALYSIS PATIEN TS. Sales And Marketing Engineer ID - DBCBC (HEMOGRAM ONLY)2021-06-09 04:18:56 Test Item Value Reference Range Interpretation Comments WHITE BLOOD CELL COUNT (BEAKER) 5.7 K/ L 3.5-10.5 (test code = 775) RED BLOOD CELL COUNT (BEAKER) 2.71 M/ L 3.93-5.22 L (test code = 761) HEMOGLOBIN (BEAKER) (test code = 8.5 GM/DL 11.2-15.7 L 410) HEMATOCRIT (BEAKER) (test code = 25.6 % 34.1-44.9 L 411) MEAN CORPUSCULAR VOLUME (BEAKER) 94.5 fL 79.4-94.8 (test code = 753) MEAN CORPUSCULAR HEMOGLOBIN 31.4 pg 25.6-32.2 (BEAKER) (test code = 751) MEAN CORPUSCULAR HEMOGLOBIN CONC 33.2 GM/DL 32.2-35.5 (BEAKER) (test code = 752) RED CELL DISTRIBUTION WIDTH 13.6 % 11.7-14.4 (BEAKER) (test code = 412) PLATELET COUNT (BEAKER) (test 146 K/CU MM 150-450 L code = 756) MEAN PLATELET VOLUME (BEAKER) 10.5 fL 9.4-12.3 (test code = 754) NUCLEATED RED BLOOD CELLS 0 /100 WBC 0-0 (BEAKER) (test code = 413) POCT-GLUCOSE [id number] 21:33:50 Test Item Value Reference Range Interpretation Comments POC-GLUCOSE METER 161 mg/dL 70-110 H : TESTED A T [facility] 6720 (BEAKER) (test code = [place], 1538) 53305: Sales And Marketing Engineer/Techni santana ID = [id number] for ANATOLY RODRIGUES TSH/Free T4 If [id number] 18:58:52 Test Item Value Reference Range Interpretation Comments TSH (test code = 1.527 See_Comment [Automated 34664-8) message] The system which generated this result transmit carson reference range : 0.350 - 4.940 uIU/mL. The reference range was not used to interpret this result as normal/abnormal . KAILA (test code = KAILA) Sales And Marketing Engineer ID - DB Lab Interpretation Normal (test code = 86147-5) [facility]/FREE T4 IF [id number] 18:58:52 Test Item Value Reference Range Interpretation Comments THYROID STIMULATING HORMONE 1.527 uIU/mL 0.350-4.940 (BEAKER) (test code = 772) Sales And Marketing Engineer ID - DBHEMOGLOBIN AND [id number] 18:15:47 Test Item Value Reference Range Interpretation Comments HEMOGLOBIN (BEAKER) (test code = 10.4 GM/DL 11.2-15.7 L 410) [facility]CRIT [facility] (test code = 32.3 % 34.1-44.9 L 411) Sales And Marketing Engineer ID - [id number]-GLUCOSE [id number] 17:39:18 Test Item Value Reference Range Interpretation Comments POC-GLUCOSE METER 98 mg/dL 70-110 : TESTED A T [facility] 6720 ([facility]) (test code = [facility], 1538) 94881: Sales And Marketing Engineer/Techni santana ID = [id number] for Senia Curtis 2D Echo W/Doppler(CW/PW/Color)2021-06-08 14:50:20Ejection [facility] ECHO HEARTLAB MKCKESSON CPACHI [facility] [id number] 11:38:48 Test Item Value Reference Range Interpretation Comments POC-GLUCOSE METER 268 mg/dL 70-110 H : TESTED A T [facility] 6720 ([facility]) (test code = [facility], 1538) 42873: Sales And Marketing Engineer/Techni santana ID = [id number] for Sa ntmaida, Senia POCT-GLUCOSE [id number] 07:45:46 Test Item Value Reference Range Interpretation Comments POC-GLUCOSE METER 110 mg/dL 70-110 : TESTED A T [facility] 6720 ([facility] (test code = [facility], 1538) 75074: Sales And Marketing Engineer/Techni santana ID = [id number] for Sa ntos, Senia [id number] 05:41:28 Test Item Value Reference Range Interpretation Comments MAGNESIUM (BEAKER) (test code = 2.0 mg/dL 1.6-2.6 627) Sales And Marketing Engineer ID - SOPHIA GBASIC METABOLIC [id number] 05:41:27 Test Item Value Reference Range Interpretation Comments SODIUM (BEAKER) 142 meq/L 136-145 (test code = 381) POTASSIUM (BEAKER) 4.8 meq/L 3.5-5.1 (test code = 379) CHLORIDE (BEAKER) 115 meq/L 98-107 H (test code = 382) CO2 (BEAKER) (test 23 meq/L 22-29 code = 355) BLOOD UREA NITROGEN 22 mg/dL 7-21 H (BEAKER) (test code = 354) CREATININE (BEAKER) 0.97 mg/dL 0.57-1.25 (test code = 358) GLUCOSE RANDOM 119 mg/dL 70-105 H (BEAKER) (test code = 652) CALCIUM (BEAKER) 8.8 mg/dL 8.4-10.2 (test code = 697) EGFR (BEAKER) (test 55 mL/min/1.73 ESTIMA CARSON GFR IS code = 1092) sq m NOT ACCURATE CREATININE CLEARANCE IN PREDICTING GLOMERULAR FILTRATION RATE . ESTIMATED GFR I S NOT APPLICABLE FOR DIALYSIS PATIEN TS. Sales And Marketing Engineer ID - SOPHIA GCBC (HEMOGRAM ONLY)2021-06-08 04:43:35 Test Item Value Reference Range Interpretation Comments WHITE BLOOD CELL COUNT (BEAKER) 6.3 K/ L 3.5-10.5 (test code = 775) RED BLOOD CELL COUNT (BEAKER) 3.04 M/ L 3.93-5.22 L (test code = 761) HEMOGLOBIN (BEAKER) (test code = 9.1 GM/DL 11.2-15.7 L 410) HEMATOCRIT (BEAKER) (test code = 29.0 % 34.1-44.9 L 411) MEAN CORPUSCULAR VOLUME (BEAKER) 95.4 fL 79.4-94.8 H (test code = 753) MEAN CORPUSCULAR HEMOGLOBIN 29.9 pg 25.6-32.2 (BEAKER) (test code = 751) MEAN CORPUSCULAR HEMOGLOBIN CONC 31.4 GM/DL 32.2-35.5 L (BEAKER) (test code = 752) RED CELL DISTRIBUTION WIDTH 13.7 % 11.7-14.4 (BEAKER) (test code = 412) PLATELET COUNT (BEAKER) (test 144 K/CU MM 150-450 L code = 756) MEAN PLATELET VOLUME (BEAKER) 10.1 fL 9.4-12.3 (test code = 754) NUCLEATED RED BLOOD CELLS 0 /100 WBC 0-0 (BEAKER) (test code = 413) POCT-GLUCOSE [id number] 21:15:34 Test Item Value Reference Range Interpretation Comments POC-GLUCOSE METER 157 mg/dL 70-110 H : TESTED A T [facility] 6720 (BEAKER) (test code = [facility], 1538) 11631: Sales And Marketing Engineer/Techni santana ID = [id number] for AG U, SMITH HEMOGLOBIN AND [id number] 20:36:20 Test Item Value Reference Range Interpretation Comments HEMOGLOBIN (BEAKER) (test code = 9.6 GM/DL 11.2-15.7 L 410) HEMATOCRIT (BEAKER) (test code = 29.9 % 34.1-44.9 L 411) Sales And Marketing Engineer ID - [id number]-GLUCOSE [id number] 17:16:27 Test Item Value Reference Range Interpretation Comments POC-GLUCOSE METER 118 mg/dL 70-110 H : TESTED A T [facility] 6720 (BEAKER) (test code = [facility], 153) 44574: Sales And Marketing Engineer/Techni santana ID = [id number] for Sa ntos, Senia HEMOGLOBIN AND [id number] 15:41:03 Test Item Value Reference Range Interpretation Comments HEMOGLOBIN (BEAKER) (test code = 9.3 GM/DL 11.2-15.7 L 410) HEMATOCRIT (BEAKER) (test code = 32.1 % 34.1-44.9 L 411) Sales And Marketing Engineer ID - [id number]-GLUCOSE [id number] 12:55:24 Test Item Value Reference Range Interpretation Comments POC-GLUCOSE METER 125 mg/dL 70-110 H : TESTED A T [facility] 6720 (BEAKER) (test code = [facility], 1538) 31640: Sales And Marketing Engineer/Techni santana ID = [id number] for Sa ntos, Senia POCT-GLUCOSE [id number] 07:50:40 Test Item Value Reference Range Interpretation Comments POC-GLUCOSE METER 114 mg/dL 70-110 H : TESTED A T [facility] 6720 (BEAKER) (test code = KAVYA Bennett [facility], 1538) 28087: Sales And Marketing Engineer/Techni santana ID = [id number] for Senia Gomes [id number] 04:45:32 Test Item Value Reference Range Interpretation Comments MAGNESIUM (BEAKER) (test code = 2.1 mg/dL 1.6-2.6 627) Sales And Marketing Engineer ID - BSBASIC METABOLIC [id number] 04:45:31 Test Item Value Reference Range Interpretation Comments SODIUM (BEAKER) 139 meq/L 136-145 (test code = 381) POTASSIUM (BEAKER) 4.4 meq/L 3.5-5.1 (test code = 379) CHLORIDE (BEAKER) 114 meq/L 98-107 H (test code = 382) CO2 (BEAKER) (test 21 meq/L 22-29 L code = 355) BLOOD UREA NITROGEN 34 mg/dL 7-21 H (BEAKER) (test code = 354) CREATININE (BEAKER) 1.17 mg/dL 0.57-1.25 (test code = 358) GLUCOSE RANDOM 153 mg/dL 70-105 H (BEAKER) (test code = 652) CALCIUM (BEAKER) 8.8 mg/dL 8.4-10.2 (test code = 697) EGFR (BEAKER) (test 45 mL/min/1.73 ESTIMA CARSON GFR IS code = 1092) sq m NOT ACCURATE CREATININE CLEARANCE IN PREDICTING GLOMERULAR FILTRATION RATE . ESTIMATED GFR I S NOT APPLICABLE FOR DIALYSIS PATIEN TS. Sales And Marketing Engineer ID - BSCBC W/PLT COUNT & AUTO [id number] 04:32:44 Test Item Value Reference Range Interpretation Comments WHITE BLOOD CELL COUNT (BEAKER) 8.4 K/ L 3.5-10.5 (test code = 775) RED BLOOD CELL COUNT (BEAKER) 2.88 M/ L 3.93-5.22 L (test code = 761) HEMOGLOBIN (BEAKER) (test code = 8.9 GM/DL 11.2-15.7 L 410) HEMATOCRIT (BEAKER) (test code = 27.1 % 34.1-44.9 L 411) MEAN CORPUSCULAR VOLUME (BEAKER) 94.1 fL 79.4-94.8 (test code = 753) MEAN CORPUSCULAR HEMOGLOBIN 30.9 pg 25.6-32.2 (BEAKER) (test code = 751) MEAN CORPUSCULAR HEMOGLOBIN CONC 32.8 GM/DL 32.2-35.5 (BEAKER) (test code = 752) RED CELL DISTRIBUTION WIDTH 13.7 % 11.7-14.4 (BEAKER) (test code = 412) PLATELET COUNT (BEAKER) (test 152 K/CU MM 150-450 code = 756) MEAN PLATELET VOLUME (BEAKER) 10.2 fL 9.4-12.3 (test code = 754) NUCLEATED RED BLOOD CELLS 0 /100 WBC 0-0 (BEAKER) (test code = 413) NEUTROPHILS RELATIVE PERCENT 54 % (BEAKER) (test code = 429) LYMPHOCYTES RELATIVE PERCENT 36 % (BEAKER) (test code = 430) MONOCYTES RELATIVE PERCENT 9 % (BEAKER) (test code = 431) EOSINOPHILS RELATIVE PERCENT 1 % (BEAKER) (test code = 432) BASOPHILS RELATIVE PERCENT 0 % (BEAKER) (test code = 437) NEUTROPHILS ABSOLUTE COUNT 4.58 K/ L 1.56-6.13 (BEAKER) (test code = 670) LYMPHOCYTES ABSOLUTE COUNT 3.04 K/ L 1.18-3.74 (BEAKER) (test code = 414) MONOCYTES ABSOLUTE COUNT (BEAKER) 0.72 K/ L 0.24-0.36 H (test code = 415) EOSINOPHILS ABSOLUTE COUNT 0.06 K/ L 0.04-0.36 (BEAKER) (test code = 416) BASOPHILS ABSOLUTE COUNT (BEAKER) 0.02 K/ L 0.01-0.08 (test code = 417) IMMATURE GRANULOCYTES-RELATIVE 0 % 0-1 PERCENT (BEAKER) (test code = 2801) HEMOGLOBIN AND [id number] 00:13:34 Test Item Value Reference Range Interpretation Comments HEMOGLOBIN (BEAKER) (test code = 8.0 GM/DL 11.2-15.7 L 410) HEMATOCRIT (BEAKER) (test code = 24.7 % 34.1-44.9 L 411) Sales And Marketing Engineer ID - [id number]-GLUCOSE [id number] 21:22:49 Test Item Value Reference Range Interpretation Comments POC-GLUCOSE METER 189 mg/dL 70-110 H : TESTED A T [facility] 6720 (BEAKER) (test code = [place], 153 27154: Sales And Marketing Engineer/Techni santana ID = [id number] for EJ ELAM SE CT, [id number] 19:00:00Reason for exam:->acute right sided abdominal pain in setting of recent lower extremity angiogramand drop in hgb, evaluate for retroperitoneal hematomaWhat is the patient's sedation requirement?->No SedationCH[facility]ARC[facility] MIRIAMASIYA RUDD : 1940 Sex: FFINAL REPORT ABDOMINAL AND PELVIS CT DATED 06/06/2021 CLINICAL INFORMATION: Unlisted Reason for Examacute right sided abdominal pain in setting of recent lower extremity angiogram and drop in hgb, evaluate for retroperitoneal hematoma TECHNIQUE: Axial images of the abdomen and pelvis were obtained from diaphragm to the pubic symphysis without GI or intravenous contrast. This exam wasperformed according to our departmental dose-optimization program, which includes automated exposurecontrol, adjustment of the mA and/or kV according to patient size and/or use of interactive reconstruction technique. COMMENT: Bronchiectasis and subsegmental atelectasis is seen in the left lower lobe. There is trace left pleural effusion. Liver and spleen are normal in size without focal abnormality. Gallbladder is surgically absent. No biliary dilatation is noted. Pancreas and adrenals are unremarkable. Both kidneys are normal in size. No hydronephrosis, hydroureter, urolithiasis is seen. A 1.8 x2 7 m cyst is seen in the mid inferior pole right kidney. Diverticular disease is seen in the large bowel without diverticulitis. The small bowel and appendix are normal in caliber. Uterus surgically absent. The urinary bladder is contracted. Vascular calcification is seen in the abdominal aorta and bilateral iliac arteries. Hematoma is seen involving the right inferior rectus muscle measuring approximately 3.3 x 9.7 x 10.3 cm. IMPRESSION: 1. Hematoma involving the right inferior rectus musculature.2. Diverticulosis without diverticulitis.3. Left lower lobe subsegmental atelectasis and bronchiectasis.4. Right renal cyst. The findings were relayed to patient's nurse Hortensia at the time of the dictation. Signed: Abhinav Card MDReport Verified Date/Time: 06/06/2021 19:00:47 Reading Location: [facility] [id number] CT Body Reading Room High Sensitivity Troponin [id number] 18:24:36 Test Item Value Reference Range Interpretation Comments Troponin I HS (test 21 pg/ml See_Comment H [Automa carson code = 10372-3) message] The system which generated this result transmitted reference range : <=17. The reference range was not used to interpret this result as normal/abnormal . KAILA (test code = Sales And Marketing Engineer ID - KAILA) ADMINThe SECONDS GRADER STAT High Sensitivity Troponin-I results should be used in conjunction with other diagnostic information such as ECG, clinical observations and information, and patient symptoms to aid in the diagnosis of VT. Lab Interpretation Abnormal (test code = 87897-6) [place] [facility] TROPONIN [id number] 18:24:36 Test Item Value Reference Range Interpretation Comments HIGH SENSITIVITY 21 pg/ml See_Comment H [Automated message] TROPONIN I (test code = The system which [id number]) generated this result transmitted ref erence range: <=17. Th e reference range was not used to int erpret this result as normal/abnormal . Sales And Marketing Engineer ID - ADMINThe SECONDS GRADER STAT High Sensitivity Troponin-I results should be used in conjunction with other diagnostic information such as ECG, clinical observations and information, and patientsymptoms to aid in the diagnosis of VT. HEMOGLOBIN AND [id number] 17:54:38 Test Item Value Reference Range Interpretation Comments HEMOGLOBIN (BEAKER) (test code = 9.0 GM/DL 11.2-15.7 L 410) HEMATOCRIT (BEAKER) (test code = 27.7 % 34.1-44.9 L 411) Sales And Marketing Engineer ID - [id number]-GLUCOSE [id number] 17:22:08 Test Item Value Reference Range Interpretation Comments POC-GLUCOSE METER 170 mg/dL 70-110 H : TESTED A T [facility] 6720 (BEAKER) (test code = [facility], 1538) 21955: Sales And Marketing Engineer/Techni santana ID = [id number] for JANIS MCKEON POCT-GLUCOSE [id number] 11:54:16 Test Item Value Reference Range Interpretation Comments POC-GLUCOSE METER 209 mg/dL 70-110 H : TESTED A T [facility] 6720 (BEAKER) (test code = [facility], 1538) 32267: Sales And Marketing Engineer/Techni santana ID = [id number] for JANIS MCKEON HIGH SENSITIVITY TROPONIN [id number] 11:22:38 Test Item Value Reference Range Interpretation Comments HIGH SENSITIVITY 14 pg/ml See_Comment [Automated message] TROPONIN I (test code = The system which 6083313) generated this result transmitted ref erence range: <=17. Th e reference range was not used to int erpret this result as normal/abnormal . Sales And Marketing Engineer ID - PIAYA LThe SECONDS GRADER STAT High Sensitivity Troponin-I results should be used in conjunction with other diagnostic information such as ECG, clinical observations and information, and patient symptoms to aid in the diagnosis of VT.HEMOGLOBIN AND [id number] 11:00:14 Test Item Value Reference Range Interpretation Comments HEMOGLOBIN (BEAKER) (test code = 9.3 GM/DL 11.2-15.7 L 410) HEMATOCRIT (BEAKER) (test code = 28.5 % 34.1-44.9 L 411) Sales And Marketing Engineer ID - [id number]-GLUCOSE [id number] 08:02:14 Test Item Value Reference Range Interpretation Comments POC-GLUCOSE METER 167 mg/dL 70-110 H : TESTED A T [facility] 6720 (BEAKER) (test code = [facility], 1538) 76288: Sales And Marketing Engineer/Techni santana ID = [id number] for JANIS MCKEON BASIC METABOLIC [id number] 07:19:33 Test Item Value Reference Range Interpretation Comments SODIUM (BEAKER) 137 meq/L 136-145 (test code = 381) POTASSIUM (BEAKER) 4.8 meq/L 3.5-5.1 (test code = 379) CHLORIDE (BEAKER) 114 meq/L 98-107 H (test code = 382) CO2 (BEAKER) (test 18 meq/L 22-29 L code = 355) BLOOD UREA NITROGEN 38 mg/dL 7-21 H (BEAKER) (test code = 354) CREATININE (BEAKER) 1.15 mg/dL 0.57-1.25 (test code = 358) GLUCOSE RANDOM 202 mg/dL 70-105 H (BEAKER) (test code = 652) CALCIUM (BEAKER) 8.3 mg/dL 8.4-10.2 L (test code = 697) EGFR (BEAKER) (test 45 mL/min/1.73 ESTIMA CARSON GFR IS code = 1092) sq m NOT ACCURATE CREATININE CLEARANCE IN PREDICTING GLOMERULAR FILTRATION RATE . ESTIMATED GFR I S NOT APPLICABLE FOR DIALYSIS PATIEN TS. Sales And Marketing Engineer ID - [id number] 07:19:33 Test Item Value Reference Range Interpretation Comments MAGNESIUM (BEAKER) (test code = 2.1 mg/dL 1.6-2.6 627) Sales And Marketing Engineer ID - EOCBC W/PLT COUNT & AUTO [id number] 06:31:46 Test Item Value Reference Range Interpretation Comments WHITE BLOOD CELL COUNT (BEAKER) 6.8 K/ L 3.5-10.5 (test code = 775) RED BLOOD CELL COUNT (BEAKER) 2.89 M/ L 3.93-5.22 L (test code = 761) HEMOGLOBIN (BEAKER) (test code = 8.9 GM/DL 11.2-15.7 L 410) HEMATOCRIT (BEAKER) (test code = 27.5 % 34.1-44.9 L 411) MEAN CORPUSCULAR VOLUME (BEAKER) 95.2 fL 79.4-94.8 H (test code = 753) MEAN CORPUSCULAR HEMOGLOBIN 30.8 pg 25.6-32.2 (BEAKER) (test code = 751) MEAN CORPUSCULAR HEMOGLOBIN CONC 32.4 GM/DL 32.2-35.5 (BEAKER) (test code = 752) RED CELL DISTRIBUTION WIDTH 13.6 % 11.7-14.4 (BEAKER) (test code = 412) PLATELET COUNT (BEAKER) (test 152 K/CU MM 150-450 code = 756) MEAN PLATELET VOLUME (BEAKER) 10.9 fL 9.4-12.3 (test code = 754) NUCLEATED RED BLOOD CELLS 0 /100 WBC 0-0 (BEAKER) (test code = 413) NEUTROPHILS RELATIVE PERCENT 82 % (BEAKER) (test code = 429) LYMPHOCYTES RELATIVE PERCENT 14 % (BEAKER) (test code = 430) MONOCYTES RELATIVE PERCENT 4 % (BEAKER) (test code = 431) EOSINOPHILS RELATIVE PERCENT 0 % (BEAKER) (test code = 432) BASOPHILS RELATIVE PERCENT 0 % (BEAKER) (test code = 437) NEUTROPHILS ABSOLUTE COUNT 5.57 K/ L 1.56-6.13 (BEAKER) (test code = 670) LYMPHOCYTES ABSOLUTE COUNT 0.96 K/ L 1.18-3.74 L (BEAKER) (test code = 414) MONOCYTES ABSOLUTE COUNT (BEAKER) 0.24 K/ L 0.24-0.36 (test code = 415) EOSINOPHILS ABSOLUTE COUNT 0.00 K/ L 0.04-0.36 L (BEAKER) (test code = 416) BASOPHILS ABSOLUTE COUNT (BEAKER) 0.00 K/ L 0.01-0.08 L (test code = 417) IMMATURE GRANULOCYTES-RELATIVE 1 % 0-1 PERCENT (BEAKER) (test code = 2801) URINALYSIS W/ REFLEX URINE [id number] 21:46:08 Test Item Value Reference Range Interpretation Comments COLOR (BEAKER) (test code = 470) Light Yellow CLARITY (BEAKER) (test code = Clear 469) SPECIFIC GRAVITY UA (BEAKER) 1.017 1.001-1.035 (test code = 468) PH UA (BEAKER) (test code = 467) 5.5 5.0-8.0 PROTEIN UA (BEAKER) (test code = Negative Negative 464) GLUCOSE UA (BEAKER) (test code = >1000 mg/dL Negative A 365) KETONES UA (BEAKER) (test code = Negative Negative 371) BILIRUBIN UA (BEAKER) (test code Negative Negative = 462) BLOOD UA (BEAKER) (test code = Negative Negative 461) NITRITE UA (BEAKER) (test code = Negative Negative 465) LEUKOCYTE ESTERASE UA (BEAKER) Negative Negative (test code = 466) UROBILINOGEN UA (BEAKER) (test 0.2 mg/dL 0.2-1.0 code = 463) RBC UA (BEAKER) (test code = 14 /HPF 519) WBC UA (BEAKER) (test code = 1 /HPF 520) BACTERIA (BEAKER) (test code = None Seen 517) SQUAMOUS EPITHELIAL (BEAKER) < /HPF (test code = 516) CRYSTALS, URINE (BEAKER) (test None Seen code = 1521) YEAST (BEAKER) (test code = Many 1585) SOURCE(BEAKER) (test code = 2795) Sales And Marketing Engineer ID - [auto]Sales And Marketing Engineer ID - techPOCT-GLUCOSE [id number] 21:24:58 Test Item Value Reference Range Interpretation Comments POC-GLUCOSE METER 253 mg/dL 70-110 H : TESTED A T [facility] 6720 (BEAKER) (test code = [facility], 1538) 32698: Sales And Marketing Engineer/Techni santana ID = [id number] for EJ ELAM SE HEMOGLOBIN AND [id number] 21:05:13 Test Item Value Reference Range Interpretation Comments HEMOGLOBIN (BEAKER) (test code = 10.4 GM/DL 11.2-15.7 L 410) HEMATOCRIT (BEAKER) (test code = 31.8 % 34.1-44.9 L 411) Sales And Marketing Engineer ID - [id number]-GLUCOSE [id number] 17:19:18 Test Item Value Reference Range Interpretation Comments POC-GLUCOSE METER 209 mg/dL 70-110 H : TESTED A T [facility] 6720 (BEAKER) (test code = [facility], 1538) 41686: Sales And Marketing Engineer/Techni santana ID = [id number] for MA RTIN, CHIANNA POCT-GLUCOSE [id number] 15:04:10 Test Item Value Reference Range Interpretation Comments POC-GLUCOSE METER 138 mg/dL 70-110 H : TESTED A T [facility] 6720 (BEAKER) (test code = [facility], 1538) 25484: Sales And Marketing Engineer/Techni santana ID = [id number] for MA RTIN, CHIANNA SARS-COV2/RT-PCR ([facility])2021-06-05 11:38:34 Test Item Value Reference Range Interpretation Comments SARS-COV2/RT-PCR (test Negative Not Detected, Negative, code = 4860128) See external report for linked test SARS-COV-[address] [facility] (test code = 8149414) Negative result for this test determines that SARS-CoV-2 RNA was not present in the specimen above the Limit of Detection (LOD). However, Negative results do not preclude SARS-CoV-2 infection and should not be used as the sole basis for treatment or patient management decisions. Negative results must be combined with clinical observations, patient history, and epidemiological information. A false negative result may occur if a specimen is improperly collected, transported or handled. A false negative result should be considered if patient's recent exposures or clinical presentation indicate that COVID-19 (SARS-CoV-2) is likely and diagnostic tests for other causes of illness are negative. Re-testing should be considered in cases of suspected false negatives.The limit of detection for this assay is 800 copies/mL.This SARS CoV-2 test is a real-time RT-PCR [...] justifying the authorization of the emergency use ofin vitro diagnostic tests for detection and/or diagnosis of COVID-19 is terminated under Section 564(b)(2) of the Act or the EUA is revoked under Section 564(g) of the Act.Fact Sheet for Healthcare Prov iders:https://www.[employer]/sites/default/files/product/documents/Fact_Sheet_HC _Udbltxrji_Xsgi_EULF-DfY-9.pdfFact Sheet for Healthcare Patients:https://www.[employer]/sites/default/files/product/docume nts/Zdkd_Xsdir_Rhrbzdit_Dvub_CPXB-McC-0.pdfPerforming Laboratory:[facility] DavisonAlbuquer[facility], [place] [address]DBTV-JIYJLWL METER 2021-06-05 08:25:40 Test Item Value Reference Range Interpretation Comments POC-GLUCOSE METER 88 mg/dL 70-110 : TESTED A T [facility] 6720 (BEAKER) (test code = [place], 1538) 79459: Sales And Marketing Engineer/Techni santana ID = [id number] for HENRRY SCHWAB BASIC METABOLIC [id number] 06:27:46 Test Item Value Reference Range Interpretation Comments SODIUM (BEAKER) 136 meq/L 136-145 (test code = 381) POTASSIUM (BEAKER) 4.5 meq/L 3.5-5.1 (test code = 379) CHLORIDE (BEAKER) 113 meq/L 98-107 H (test code = 382) CO2 (BEAKER) (test 17 meq/L 22-29 L code = 355) BLOOD UREA NITROGEN 38 mg/dL 7-21 H (BEAKER) (test code = 354) CREATININE (BEAKER) 1.22 mg/dL 0.57-1.25 (test code = 358) GLUCOSE RANDOM 114 mg/dL 70-105 H (BEAKER) (test code = 652) CALCIUM (BEAKER) 9.1 mg/dL 8.4-10.2 (test code = 697) EGFR (BEAKER) (test 42 mL/min/1.73 ESTIMA CARSON GFR IS code = 1092) sq m NOT ACCURATE CREATININE CLEARANCE IN PREDICTING GLOMERULAR FILTRATION RATE . ESTIMATED GFR I S NOT APPLICABLE FOR DIALYSIS PATIEN TS. Sales And Marketing Engineer ID - DANO [id number] 06:27:46 Test Item Value Reference Range Interpretation Comments MAGNESIUM (BEAKER) (test code = 2.3 mg/dL 1.6-2.6 627) Sales And Marketing Engineer ID - DANO MCBC W/PLT COUNT & AUTO [id number] 06:00:12 Test Item Value Reference Range Interpretation Comments WHITE BLOOD CELL COUNT (BEAKER) 7.7 K/ L 3.5-10.5 (test code = 775) RED BLOOD CELL COUNT (BEAKER) 3.74 M/ L 3.93-5.22 L (test code = 761) HEMOGLOBIN (BEAKER) (test code = 11.5 GM/DL 11.2-15.7 410) HEMATOCRIT (BEAKER) (test code = 36.3 % 34.1-44.9 411) MEAN CORPUSCULAR VOLUME (BEAKER) 97.1 fL 79.4-94.8 H (test code = 753) MEAN CORPUSCULAR HEMOGLOBIN 30.7 pg 25.6-32.2 (BEAKER) (test code = 751) MEAN CORPUSCULAR HEMOGLOBIN CONC 31.7 GM/DL 32.2-35.5 L (BEAKER) (test code = 752) RED CELL DISTRIBUTION WIDTH 13.6 % 11.7-14.4 (BEAKER) (test code = 412) PLATELET COUNT (BEAKER) (test 121 K/CU MM 150-450 L code = 756) MEAN PLATELET VOLUME (BEAKER) 11.1 fL 9.4-12.3 (test code = 754) NUCLEATED RED BLOOD CELLS 0 /100 WBC 0-0 (BEAKER) (test code = 413) NEUTROPHILS RELATIVE PERCENT 53 % (BEAKER) (test code = 429) LYMPHOCYTES RELATIVE PERCENT 36 % (BEAKER) (test code = 430) MONOCYTES RELATIVE PERCENT 9 % (BEAKER) (test code = 431) EOSINOPHILS RELATIVE PERCENT 2 % (BEAKER) (test code = 432) BASOPHILS RELATIVE PERCENT 1 % (BEAKER) (test code = 437) NEUTROPHILS ABSOLUTE COUNT 4.07 K/ L 1.56-6.13 (BEAKER) (test code = 670) LYMPHOCYTES ABSOLUTE COUNT 2.74 K/ L 1.18-3.74 (BEAKER) (test code = 414) MONOCYTES ABSOLUTE COUNT (BEAKER) 0.68 K/ L 0.24-0.36 H (test code = 415) EOSINOPHILS ABSOLUTE COUNT 0.13 K/ L 0.04-0.36 (BEAKER) (test code = 416) BASOPHILS ABSOLUTE COUNT (BEAKER) 0.04 K/ L 0.01-0.08 (test code = 417) IMMATURE GRANULOCYTES-RELATIVE 1 % 0-1 PERCENT (BEAKER) (test code = 2801) POCT-GLUCOSE [id number] 16:29:59 Test Item Value Reference Range Interpretation Comments POC-GLUCOSE METER 140 mg/dL 70-110 H : TESTED [facility] 6720 (BEAKER) (test code = [place], 1538) [address]: Sales And Marketing Engineer/Techni santana ID = [id number] for Franco Maki POCT-GLUCOSE [id number] 11:23:40 Test Item Value Reference Range Interpretation Comments POC-GLUCOSE METER 141 mg/dL 70-110 H : TESTED A T [facility] 6720 (BEAKER) (test code = [place], 1538) 14227: Sales And Marketing Engineer/Techni santana ID = [id number] for Franco Maki [id number] 07:31:22 Test Item Value Reference Range Interpretation Comments MAGNESIUM (BEAKER) 2.5 mg/dL 1.6-2.6 Specimen slightly (test code = 627) hemolyzed Sales And Marketing Engineer ID - PIAYA LBASIC METABOLIC [id number] 07:31:22 Test Item Value Reference Range Interpretation Comments SODIUM (BEAKER) 137 meq/L 136-145 (test code = 381) POTASSIUM (BEAKER) 4.5 meq/L 3.5-5.1 Specimen slightly (test code = 379) hemolyzed CHLORIDE (BEAKER) 112 meq/L 98-107 H (test code = 382) CO2 (BEAKER) (test 19 meq/L 22-29 L code = 355) BLOOD UREA NITROGEN 45 mg/dL 7-21 H (BEAKER) (test code = 354) CREATININE (BEAKER) 1.29 mg/dL 0.57-1.25 H Specimen slightly (test code = 358) hemolyzed GLUCOSE RANDOM 182 mg/dL 70-105 H (BEAKER) (test code = 652) CALCIUM (BEAKER) 8.9 mg/dL 8.4-10.2 (test code = 697) EGFR (BEAKER) (test 40 mL/min/1.73 ESTIMA CARSON GFR IS code = 1092) sq m NOT ACCURATE CREATININE CLEARANCE IN PREDICTING GLOMERULAR FILTRATION RATE . ESTIMATED GFR I S NOT APPLICABLE FOR DIALYSIS PATIEN TS. Sales And Marketing Engineer ID - PIAYA LPOCT-GLUCOSE [id number] 07:21:59 Test Item Value Reference Range Interpretation Comments POC-GLUCOSE METER 162 mg/dL 70-110 H : TESTED A T [facility] 6720 (BEAKER) (test code = KAVYA Bennett [facility], 1538) 08091: Sales And Marketing Engineer/Techni santana ID = [id number] for Do Martha tolentinolon CBC W/PLT COUNT & AUTO [id number] 06:59:41 Test Item Value Reference Range Interpretation Comments WHITE BLOOD CELL COUNT (BEAKER) 9.5 K/ L 3.5-10.5 (test code = 775) RED BLOOD CELL COUNT (BEAKER) 3.30 M/ L 3.93-5.22 L (test code = 761) HEMOGLOBIN (BEAKER) (test code = 10.2 GM/DL 11.2-15.7 L 410) HEMATOCRIT (BEAKER) (test code = 31.7 % 34.1-44.9 L 411) MEAN CORPUSCULAR VOLUME (BEAKER) 96.1 fL 79.4-94.8 H (test code = 753) MEAN CORPUSCULAR HEMOGLOBIN 30.9 pg 25.6-32.2 (BEAKER) (test code = 751) MEAN CORPUSCULAR HEMOGLOBIN CONC 32.2 GM/DL 32.2-35.5 (BEAKER) (test code = 752) RED CELL DISTRIBUTION WIDTH 13.4 % 11.7-14.4 (BEAKER) (test code = 412) PLATELET COUNT (BEAKER) (test 147 K/CU MM 150-450 L code = 756) MEAN PLATELET VOLUME (BEAKER) 11.2 fL 9.4-12.3 (test code = 754) NUCLEATED RED BLOOD CELLS 0 /100 WBC 0-0 (BEAKER) (test code = 413) NEUTROPHILS RELATIVE PERCENT 78 % (BEAKER) (test code = 429) LYMPHOCYTES RELATIVE PERCENT 15 % (BEAKER) (test code = 430) MONOCYTES RELATIVE PERCENT 7 % (BEAKER) (test code = 431) EOSINOPHILS RELATIVE PERCENT 0 % (BEAKER) (test code = 432) BASOPHILS RELATIVE PERCENT 0 % (BEAKER) (test code = 437) NEUTROPHILS ABSOLUTE COUNT 7.36 K/ L 1.56-6.13 H (BEAKER) (test code = 670) LYMPHOCYTES ABSOLUTE COUNT 1.43 K/ L 1.18-3.74 (BEAKER) (test code = 414) MONOCYTES ABSOLUTE COUNT (BEAKER) 0.67 K/ L 0.24-0.36 H (test code = 415) EOSINOPHILS ABSOLUTE COUNT 0.00 K/ L 0.04-0.36 L (BEAKER) (test code = 416) BASOPHILS ABSOLUTE COUNT (BEAKER) 0.01 K/ L 0.01-0.08 (test code = 417) IMMATURE GRANULOCYTES-RELATIVE 0 % 0-1 PERCENT (BEAKER) (test code = 2801) POCT-GLUCOSE [id number] 21:25:13 Test Item Value Reference Range Interpretation Comments POC-GLUCOSE METER 235 mg/dL 70-110 H : [facility] (test code = [facility], 1538) 21017: Sales And Marketing Engineer/Techni santana ID = [id number] for Co rtez, Oval POCT-GLUCOSE [id number] 16:03:54 Test Item Value Reference Range Interpretation Comments POC-GLUCOSE METER 313 mg/dL 70-110 H : TESTED A T [facility] 6720 ([facility]) (test code = [facility], 1538) 08706: Sales And Marketing Engineer/Techni santana ID = [id number] for Fl ores (pca2), Cheyanne POCT-GLUCOSE [id number] 12:58:05 Test Item Value Reference Range Interpretation Comments POC-GLUCOSE METER 309 mg/dL 70-110 H : Notified RN/MD: ([facility]) (test code = TESTED AT [facility] 67[address] 1538) [facility], [address]: Sales And Marketing Engineer/Techni santana ID = [id number] for Fl ores (pca2), Cheyanne (CELLAVISION MANUAL DIFF)2021-06-03 09:56:12 Test Item Value Reference Range Interpretation Comments NEUTROPHILS - REL 82 % (CELLAVISION)(BEAKER) (test code = 2816) LYMPHOCYTES - REL 14 % (CELLAVISION)(BEAKER) (test code = 2817) MONOCYTES - REL 1 % (CELLAVISION)(BEAKER) (test code = 2818) BANDS - REL (CELLAVISION)(BEAKER) 3 % 0-10 (test code = 2826) NEUTROPHILS - ABS 2.79 K/ul 1.56-6.13 (CELLAVISION)(BEAKER) (test code = 2830) LYMPHOCYTES - ABS 0.48 K/ul 1.18-3.74 L (CELLAVISION)(BEAKER) (test code = 2831) MONOCYTES - ABS 0.03 K/uL 0.24-0.36 L (CELLAVISION)(BEAKER) (test code = 2832) BANDS - ABS (CELLAVISION)(BEAKER) 0.10 K/uL 0.00-0.80 (test code = 2840) TOTAL COUNTED (BEAKER) (test code = 100 1351) WBC MORPHOLOGY (BEAKER) (test code Normal = 487) GIANT PLATELETS (BEAKER) (test code Present = 313) ANISOCYTOSIS (BEAKER) (test code = 1+ few 961) MACROCYTES (BEAKER) (test code = 1+ few 964) POIKILOCYTES (BEAKER) (test code = 1+ few 966) SCHISTOCYTES (BEAKER) (test code = 1+ few 765) ELLIPTOCYTES (BEAKER) (test code = 1+ few 962) OVALOCYTES (BEAKER) (test code = 1+ few 477) ARTIFACT (CELLAVISION)(BEAKER) Present (test code = 3432) PLATELET CONCENTRATION Adequate (CELLAVISION)(BEAKER) (test code = 3438) Sales And Marketing Engineer ID - Ashish-Curly Francia comments: Slide comments:CBC W/PLT COUNT & AUTO [id number] 09:56:11 Test Item Value Reference Range Interpretation Comments WHITE BLOOD CELL COUNT (BEAKER) 3.4 K/ L 3.5-10.5 L (test code = 775) RED BLOOD CELL COUNT (BEAKER) 3.75 M/ L 3.93-5.22 L (test code = 761) HEMOGLOBIN (BEAKER) (test code = 11.6 GM/DL 11.2-15.7 410) HEMATOCRIT (BEAKER) (test code = 37.0 % 34.1-44.9 411) MEAN CORPUSCULAR VOLUME (BEAKER) 98.7 fL 79.4-94.8 H (test code = 753) MEAN CORPUSCULAR HEMOGLOBIN 30.9 pg 25.6-32.2 (BEAKER) (test code = 751) MEAN CORPUSCULAR HEMOGLOBIN CONC 31.4 GM/DL 32.2-35.5 L (BEAKER) (test code = 752) RED CELL DISTRIBUTION WIDTH 13.2 % 11.7-14.4 (BEAKER) (test code = 412) PLATELET COUNT (BEAKER) (test 151 K/CU MM 150-450 code = 756) MEAN PLATELET VOLUME (BEAKER) 10.2 fL 9.4-12.3 (test code = 754) NUCLEATED RED BLOOD CELLS 0 /100 WBC 0-0 (BEAKER) (test code = 413) Hemoglobin [id number] 09:11:59 Test Item Value Reference Range Interpretation Comments Hemoglobin A1C (test 7.1 % See_Comment H [Autom ated code = 4549-2) message] The system which generated this result transmitted reference range : <=5.6%. The reference range was not used to interpret this result as normal/abnormal . KAILA (test code = KAILA) "The A1c is measured using a NGSP-certified method. HbA1c value equal to or greater than 6.5% as the diagnosis cutoff for diabetes. An HbA1c value of 5.7-6.4% indicates increased risk for diabetes (prediabetes)."O perator ID - ADM Lab Interpretation Abnormal (test code = 79074-0) [facility] [id number] 09:11:59 Test Item Value Reference Range Interpretation Comments HEMOGLOBIN A1C 7.1 % See_Comment H [Automated m essage] ELECTROPHORESIS (FRANDY) The system which (test code = 3811) generated this result transmitted ref erence range: <=5.6%. The reference range was not used to int erpret this result as normal/abnormal . "The A1c is measured using a NGSP-certified method. HbA1c value equal to or greater than 6.5% as thediagnosis cutoff for diabetes. An HbA1c value of 5.7- 6.4% indicates increased risk for diabetes (prediabetes)."Sales And Marketing Engineer ID - ADMPOCT- GLUCOSE [id number] 09:00:23 Test Item Value Reference Range Interpretation Comments POC-GLUCOSE METER 184 mg/dL 70-110 H : TESTED A T [facility] 6720 (FRANDY) (test code = [place], 1538) [address]: Sales And Marketing Engineer/Techni santana ID = [id number] for Bea low (pca2)[place] CT, CHEST, WITH [id number] 07:52:00Unlisted Reason for Exam - Click Yes and Enter Reason Below->No [facility] : 1940 Sex: FFINAL REPORT CT Chest, abdomen, and pelvis with contrast History:Blunt trauma Comparison:none Technique: serial axial imaging was performed following up to 100cc of non ionic iodinated intravenous contrast as per departmental protocol. Multiplanar images are reconstructed and reviewed when indicated. This CT examination is performed using one or more of the following dose reduction techniques: Automated exposure control, adjustment of the mA and /or kV according to patient size, and/or use of iterative reconstruction technique. Findings:No mediastinal or hilar lymphadenopathy. Normal size heart. No pericardial effusion. Prior CABG surgery. No thoracic aortic aneurysm or dissection. No central pulmonary arterial filling defect. Patent central airways. No pleural effusion or pneumothorax. Foci of scarring are seen within the left upper and lower lobes. Left lower lobe bronchiectasis is noted. Small sliding hiatal hernia. Unremarkable appearance of pancreas and spleen. Patient is status post cholecystectomy. There is prominence of the common bile duct and intrahepatic ducts which is nonspecific in a cholecystectomy setting and could reflect reservoir effect. Liver is otherwiseunremarkable. Unremarkable appearance of the adrenal glands. There is mild bilateral renal cortical a trophy. A 2 cm heterogeneous mass is visualized involving the posterior midportion of the right kidney. Unremarkable appearance of the left kidney, ureters, and bladder.. Prior hysterectomy. No small or large bowel obstruction. No apparent bowel wall thickening. Moderate sigmoid diverticulosis, without evidence of diverticulitis. No findings to indicate acute appendicitis. No free fluid or lymphadenopathy. No abdominal aortic aneurysm. No aggressive osseous lesion. No acute fracture is identified. Impression: 1. No acute visceral abnormality within the chest, abdomen, or pelvis. No acute fracture is seen.2. 2 cm heterogeneous mass involving the posterior midportion of the right kidney, suspicious for renal cell carcinoma. Better characterization may be obtained with CT of the abdomen without and with contrast, renal mass protocol.3. Sigmoid diverticulosis, without diverticulitis.4. Prior cholecystectomy and hysterectomy.5. Left lower lobe bronchiectasis. Signed: Bismark Connelly MDReport Verified Date/Time: 06/03/2021 07:52:40 Reading Location: [facility] C013X Ortho Consult Reading Room CT, [id number] 07:52:00Unlisted Reason for Exam - Click Yes and Enter Reason Below->NoIs this for enterography?->NoWill this procedure require oral contrast?->No [facility] : 1940 Sex: FFINAL REPORT CT Chest, abdomen, and pelvis with contrast History:Blunt trauma Comparison:none Technique: serial axial imaging was performed following up to 100cc of non ionic iodinated intravenous contrast as per departmental protocol. Multiplanar images are reconstructed and reviewed when indicated. This CT examination is performed using one or more of the following dose reduction techniques: Automated exposure control, adjustment of the mA and /or kV according to patient size, and/or use of iterative reconstruction technique. Findings:No mediastinal or hilar lymphadenopathy. Normal size heart. No pericardial effusion. Prior CABG surgery. No thoracic aortic aneurysm or dissection. No central pulmonary arterial filling defect. Patent central airways. No pleural effusion or pneumothorax. Foci of scarring are seen within the left upper and lower lobes. Left lower lobe bronchiectasis is noted. Small sliding hiatal hernia. Unremarkable appearance of pancreas and spleen. Patient is status post cholecystectomy. There is prominence of the common bile duct and intrahepatic ducts which is nonspecific in a cholecystectomy setting and could reflect reservoir effect. Liver is otherwiseunremarkable. Unremarkable appearance of the adrenal glands. There is mild bilateral renal cortical a trophy. A 2 cm heterogeneous mass is visualized involving the posterior midportion of the right kidney. Unremarkable appearance of the left kidney, ureters, and bladder.. Prior hysterectomy. No small or large bowel obstruction. No apparent bowel wall thickening. Moderate sigmoid diverticulosis, without evidence of diverticulitis. No findings to indicate acute appendicitis. No free fluid or lymphadenopathy. No abdominal aortic aneurysm. No aggressive osseous lesion. No acute fracture is identified. Impression: 1. No acute visceral abnormality within the chest, abdomen, or pelvis. No acute fracture is seen.2. 2 cm heterogeneous mass involving the posterior midportion of the right kidney, suspicious for renal cell carcinoma. Better characterization may be obtained with CT of the abdomen without and with contrast, renal mass protocol.3. Sigmoid diverticulosis, without diverticulitis.4. Prior cholecystectomy and hysterectomy.5. Left lower lobe bronchiectasis. Signed: Bismark Connelly MDRepmissouri southern healthcare Verified Date/Time: 06/03/2021 07:52:40 Reading Location: [address] Ortho Consult Reading Room CT, BRAIN, WITH [id number] 07:13:00Unlisted Reason for Exam - Click Yes and Enter Reason Below->No [facility] B[facility]IRE : 1940 Sex: FFINAL REPORT EXAM/TECHNIQUE: Noncontrast CT of the head. Dose modulation, iterative reconstruction, and/or weight based adjustment of the mA/kV was utilized to reduce the radiation dose to as low as reasonably achievable. INDICATION: Trauma. COMPARISON: None. FINDINGS: Mccauley-white dif ferentiation is preserved. No acute intracranial hemorrhage. No extra-axial fluid collection. Ventricles are normal in appearance. Basal cisterns are patent. No midline shift. Cerebellar tonsils are normal in appearance. Orbits are normal. Paranasal sinuses are clear. Mastoid air cells are clear. No acute osseous processes or suspicious osseous lesion. Midline structures are normal. Visualized face and neck are unremarkable. Impression: No acute intracranial process. Signed: Benji Villegas MDReportVerified Date/Time: 06/03/2021 07:13:52 BASIC METABOLIC [id number] 06:26:30 Test Item Value Reference Range Interpretation Comments SODIUM (BEAKER) 136 meq/L 136-145 (test code = 381) POTASSIUM (BEAKER) 5.0 meq/L 3.5-5.1 (test code = 379) CHLORIDE (BEAKER) 112 meq/L 98-107 H (test code = 382) CO2 (BEAKER) (test 18 meq/L 22-29 L code = 355) BLOOD UREA NITROGEN 36 mg/dL 7-21 H (BEAKER) (test code = 354) CREATININE (BEAKER) 1.22 mg/dL 0.57-1.25 (test code = 358) GLUCOSE RANDOM 216 mg/dL 70-105 H (BEAKER) (test code = 652) CALCIUM (BEAKER) 8.9 mg/dL 8.4-10.2 (test code = 697) EGFR (BEAKER) (test 42 mL/min/1.73 ESTIMA CARSON GFR IS code = 1092) sq m NOT ACCURATE CREATININE CLEARANCE IN PREDICTING GLOMERULAR FILTRATION RATE . ESTIMATED GFR I S NOT APPLICABLE FOR DIALYSIS PATIEN TS. Sales And Marketing Engineer ID - DANO [id number] 06:26:30 Test Item Value Reference Range Interpretation Comments MAGNESIUM (BEAKER) (test code = 2.3 mg/dL 1.6-2.6 627) Sales And Marketing Engineer ID - DANO [id number] 05:58:02 Test Item Value Reference Range Interpretation Comments PARTIAL THROMBOPLASTIN TIME 29.1 seconds 22.5-36.0 (BEAKER) (test code = 760) SARS-COV2/RT-PCR ([facility])2021-06-03 00:56:51 Test Item Value Reference Range Interpretation Comments SARS-COV2/RT-PCR (test Negative Not Detected, Negative, code = 2089951) See external report for linked test SARS-COV-[address] [facility] (test code = 6989861) Negative result for this test determines that SARS-CoV-2 RNA was not present in the specimen above the Limit of Detection (LOD). However, Negative results do not preclude SARS-CoV-2 infection and should not be used as the sole basis for treatment or patient management decisions. Negative results must be combined with clinical observations, patient history, and epidemiological information. A false negative result may occur if a specimen is improperly collected, transported or handled. A false negative result should be considered if patient's recent exposures or clinical presentation indicate that COVID-19 (SARS-CoV-2) is likely and diagnostic tests for other causes of illness are negative. Re-testing should be considered in cases of suspected false negatives.The limit of detection for this assay is 800 copies/mL.This SARS CoV-2 test is a real-time RT-PCR [...] justifying the authorization of the emergency use ofin vitro diagnostic tests for detection and/or diagnosis of COVID-19 is terminated under Section 564(b)(2) of the Act or the EUA is revoked under Section 564(g) of the Act.Fact Sheet for Healthcare Prov iders:https://www.[employer]/sites/default/files/product/documents/Fact_Sheet_HC _Gzxdvzsjw_Ejam_ERTE-FlP-0.pdfFact Sheet for Healthcare Patients:https://www.[employer]/sites/default/files/product/docume nts/Ugxt_Amyik_Ojgxxvow_Qffw_FEOE-BmJ-1.pdfPerforming Laboratory:[facility], [place] [address]RWHZ-GXCIWCU METER 2021-06-02 21:28:56 Test Item Value Reference Range Interpretation Comments POC-GLUCOSE METER 201 mg/dL 70-110 H : TESTED A T [facility] [address] (BEAKER) (test code = KAVYA Bennett [place], 1538) [id number]: Sales And Marketing Engineer/Techni santana ID = [id number] for EJ ELAM SE [id number] 17:52:01 Test Item Value Reference Range Interpretation Comments PARTIAL THROMBOPLASTIN TIME 28.7 seconds 22.5-36.0 (BEAKER) (test code = 760) Platelet [id number] 17:44:21 Test Item Value Reference Range Interpretation Comments Platelets (test code = 181 See_Comment [Aut omated message] 777-3) The system [employer] generated this result transmitted ref erence range: 150 - 45 0 K/CU MM. The referen ce range was not u sed to interpret this result as normal/abnor mal. Lab Interpretation (test Normal code = 71097-5) [facility] campusPLATELET [id number] 17:44:21 Test Item Value Reference Range Interpretation Comments PLATELET COUNT (BEAKER) (test 181 K/CU MM 150-450 code = 756) CBC W/PLT COUNT & AUTO [id number] 17:44:19 Test Item Value Reference Range Interpretation Comments WHITE BLOOD CELL COUNT (BEAKER) 6.2 K/ L 3.5-10.5 (test code = 775) RED BLOOD CELL COUNT (BEAKER) 3.80 M/ L 3.93-5.22 L (test code = 761) HEMOGLOBIN (BEAKER) (test code = 11.8 GM/DL 11.2-15.7 410) HEMATOCRIT (BEAKER) (test code = 36.8 % 34.1-44.9 411) MEAN CORPUSCULAR VOLUME (BEAKER) 96.8 fL 79.4-94.8 H (test code = 753) MEAN CORPUSCULAR HEMOGLOBIN 31.1 pg 25.6-32.2 (BEAKER) (test code = 751) MEAN CORPUSCULAR HEMOGLOBIN CONC 32.1 GM/DL 32.2-35.5 L (BEAKER) (test code = 752) RED CELL DISTRIBUTION WIDTH 13.2 % 11.7-14.4 (BEAKER) (test code = 412) PLATELET COUNT (BEAKER) (test 181 K/CU MM 150-450 code = 756) MEAN PLATELET VOLUME (BEAKER) 10.4 fL 9.4-12.3 (test code = 754) NUCLEATED RED BLOOD CELLS 0 /100 WBC 0-0 (BEAKER) (test code = 413) NEUTROPHILS RELATIVE PERCENT 50 % (BEAKER) (test code = 429) LYMPHOCYTES RELATIVE PERCENT 38 % (BEAKER) (test code = 430) MONOCYTES RELATIVE PERCENT 8 % (BEAKER) (test code = 431) EOSINOPHILS RELATIVE PERCENT 2 % (BEAKER) (test code = 432) BASOPHILS RELATIVE PERCENT 1 % (BEAKER) (test code = 437) NEUTROPHILS ABSOLUTE COUNT 3.12 K/ L 1.56-6.13 (BEAKER) (test code = 670) LYMPHOCYTES ABSOLUTE COUNT 2.38 K/ L 1.18-3.74 (BEAKER) (test code = 414) MONOCYTES ABSOLUTE COUNT (BEAKER) 0.50 K/ L 0.24-0.36 H (test code = 415) EOSINOPHILS ABSOLUTE COUNT 0.13 K/ L 0.04-0.36 (BEAKER) (test code = 416) BASOPHILS ABSOLUTE COUNT (BEAKER) 0.05 K/ L 0.01-0.08 (test code = 417) IMMATURE GRANULOCYTES-RELATIVE 0 % 0-1 PERCENT (BEAKER) (test code = 2801) POCT-GLUCOSE [id number] 17:28:46 Test Item Value Reference Range Interpretation Comments POC-GLUCOSE METER 94 mg/dL 70-110 : TESTED A T [facility] [address] (BEAKER) (test code = [place], 1538) [address]: Sales And Marketing Engineer/Techni santana ID = [id number] for Franco Shaikh Comprehensive metabolic [id number] 14:01:24 Test Item Value Reference Range Interpretation Comments Protein, Total (test 7.2 See_Comment Specime n slightly code = 2885-2) hemolyzed [Automated message] The system which generated this result transmit carson reference range : 6.0 - 8.3 gm/dL . The reference range was not u sed to interpret th is result as normal/abnormal . Albumin (test code = 3.9 g/dL 3.5-5.0 Specime n slightly 01082-2) hemolyzed Alkaline Phosphatase 10 U/L 40-150 L (test code = 6768-6) Total Bilirubin (test 0.5 mg/dL 0.2-1.2 Specim en slightly code = 1975-2) hemolyzed Sodium (test code = 139 meq/L 114-154 1321-2) Potassium (test code 5.0 meq/L 3.5-5.1 Specime n slightly = 2823-3) hemolyzed Chloride (test code = 112 meq/L 98-107 H 2075-0) CO2 (test code = 18 meq/L 22-29 L 2028-9) BUN (test code = 40 mg/dL 7-21 H 3094-0) Creatinine (test code 1.33 mg/dL 0.57-1.25 H Specim en slightly = 2160-0) hemolyzed Glucose (test code = 112 mg/dL 70-105 H 2345-7) Calcium (test code = 9.5 mg/dL 8.4-10.2 37450-6) AST (test code = 30 U/L 5-34 Specimen sl ightly 1920-8) hemolyzed ALT (test code = 27 U/L 6-55 Specimen sl ightly 1742-6) hemolyzed EGFR (test code = 38 mL/min/1.73 [place] [address]-9) NOT ACCURATE CREATININE CLEARANCE IN PREDICTING GLOMERULAR FILTRATION RATE . ESTIMATED GFR I S NOT APPLICABLE FOR DIALYSIS PATIEN TSAbraham KAILA (test code = KAILA) Sales And Marketing Engineer ID - laura w Lab Interpretation Abnormal (test code = 73898-4) [facility]COMPREHENSIVE METABOLIC [id number] 14:01:24 Test Item Value Reference Range Interpretation Comments TOTAL PROTEIN 7.2 gm/dL 6.0-8.3 Specimen sligh tly (BEAKER) (test code = hemoly zed 770) ALBUMIN (BEAKER) 3.9 g/dL 3.5-5.0 Specimen sl ightly (test code = 1145) hemolyzed ALKALINE PHOSPHATASE 10 U/L 40-150 L (BEAKER) (test code = 346) BILIRUBIN TOTAL 0.5 mg/dL 0.2-1.2 Specimen sli ghtly (BEAKER) (test code = hemoly zed 377) SODIUM (BEAKER) (test 139 meq/L 136-145 code = 381) POTASSIUM (BEAKER) 5.0 meq/L 3.5-5.1 Specimen slightly (test code = 379) hemolyzed CHLORIDE (BEAKER) 112 meq/L 98-107 H (test code = 382) CO2 (BEAKER) (test 18 meq/L 22-29 L code = 355) BLOOD UREA NITROGEN 40 mg/dL 7-21 H (BEAKER) (test code = 354) CREATININE (BEAKER) 1.33 mg/dL 0.57-1.25 H Specimen slightly (test code = 358) hemolyzed GLUCOSE RANDOM 112 mg/dL 70-105 H (BEAKER) (test code = 652) CALCIUM (BEAKER) 9.5 mg/dL 8.4-10.2 (test code = 697) AST (SGOT) (BEAKER) 30 U/L 5-34 Specimen slightly (test code = 353) hemolyzed ALT (SGPT) (BEAKER) 27 U/L 6-55 Specimen slightly (test code = 347) hemolyzed EGFR (BEAKER) (test 38 mL/min/1.73 ESTIMA CARSON GFR IS code = 1092) sq m NOT ACCURATE CREATININE CLEARANCE IN PREDICTING GLOMERULAR FILTRATION RATE . ESTIMATED GFR I S NOT APPLICABLE FOR DIALYSIS PATIEN TS. Sales And Marketing Engineer ID Von sanchez wHIGH SENSITIVITY TROPONIN [id number] 13:39:14 Test Item Value Reference Range Interpretation Comments HIGH SENSITIVITY 9 pg/ml See_Comment [Automated message] TROPONIN I (test code = The system which 6303450) generated this result transmitted ref erence range: <=17. Th e reference range was not used to interpr et this result as normal/abnormal . Sales And Marketing Engineer ID - laura wThe [employer] STAT High Sensitivity Troponin-I results should be used in conjunction with other diagnostic information such as ECG, clinical observations and information, and patient symptoms to aid in the diagnosis of VT.RAD, CHEST, 1 VIEW, NON [id number] 12:55:00Reason for exam:- >chest painShould this be performed at the bedside?->Yes [facility] 1940 Sex: FFINAL REPORT Exam: RAD, CHEST, 1 VIEW, NON DEPTDate: 06/02/2021 12:54 PM Indication:chest painComparison: 09/24/2019 FINDINGS: Lines/Tubes/Devices: Status post sternotomy. Lungs/pleura:Lungs are well inflated. Left base streaky airspace opacities.. No pleural effusion. No pneumothorax. Heart/Mediastinum: Mild cardiomegaly. Aortic atherosclerosis. Bones/Soft Tissues: No acute osseous abnormality. Upper abdomen: Unremarkable. IMPRESSION:Left base subsegmental atelectasis versus scarring. Signed: Forrest Godwin Verified Date/Time: 06/02/2021 12:55:51 Reading Location: [facility]iology Reading Room -COV2/RT-PCR ([facility])2021-05-08 17:21:19 Test Item Value Reference Range Interpretation Comments SARS-COV2/RT-PCR (test Negative Not Detected, Negative, code = 9598112) See external report for linked test SARS-COV-[address] [facility] (test code = 6495479) Negative result for this test determines that SARS-CoV-2 RNA was not present in the specimen above the Limit of Detection (LOD). However, Negative results do not preclude SARS-CoV-2 infection and should not be used as the sole basis for treatment or patient management decisions. Negative results must be combined with clinical observations, patient history, and epidemiological information. A false negative result may occur if a specimen is improperly collected, transported or handled. A false negative result should be considered if patient's recent exposures or clinical presentation indicate that COVID-19 (SARS-CoV-2) is likely and diagnostic tests for other causes of illness are negative. Re-testing should be considered in cases of suspected false negatives.The limit of detection for this assay is 800 copies/mL.This SARS CoV-2 test is a real-time RT-PCR [...] justifying the authorization of the emergency use ofin vitro diagnostic tests for detection and/or diagnosis of COVID-19 is terminated under Section 564(b)(2) of the Act or the EUA is revoked under Section 564(g) of the Act.Fact Sheet for Healthcare Prov iders:https://www.[employer]/sites/default/files/product/documents/Fact_Sheet_HC _Aflhswbdz_Hyhu_TSWP-XtA-1.pdfFact Sheet for Healthcare Patients:https://www.[employer]/sites/default/files/product/docume nts/Ozfe_Kzovs_Aeyrhsbg_Myki_CHXV-JlO-0.pdfPerforming Laboratory:[facility], [place] [address]IJONA METABOLIC PANEL 2021-05-08 13:33:54 Test Item Value Reference Range Interpretation Comments SODIUM (BEAKER) 136 meq/L 136-145 (test code = 381) POTASSIUM (BEAKER) 4.7 meq/L 3.5-5.1 (test code = 379) CHLORIDE (BEAKER) 107 meq/L 98-107 (test code = 382) CO2 (BEAKER) (test 22 meq/L 22-29 code = 355) BLOOD UREA NITROGEN 43 mg/dL 7-21 H (BEAKER) (test code = 354) CREATININE (BEAKER) 1.39 mg/dL 0.57-1.25 H (test code = 358) GLUCOSE RANDOM 137 mg/dL 70-105 H (BEAKER) (test code = 652) CALCIUM (BEAKER) 9.4 mg/dL 8.4-10.2 (test code = 697) EGFR (BEAKER) (test 36 mL/min/1.73 ESTIMA CARSON GFR IS code = 1092) sq m NOT ACCURATE CREATININE CLEARANCE IN PREDICTING GLOMERULAR FILTRATION RATE . ESTIMATED GFR I S NOT APPLICABLE FOR DIALYSIS PATIEN TS. Sales And Marketing Engineer ID - ADMINCBC W/PLT COUNT & AUTO [id number] 13:10:34 Test Item Value Reference Range Interpretation Comments WHITE BLOOD CELL COUNT (BEAKER) 5.3 K/ L 3.5-10.5 (test code = 775) RED BLOOD CELL COUNT (BEAKER) 3.29 M/ L 3.93-5.22 L (test code = 761) HEMOGLOBIN (BEAKER) (test code = 10.1 GM/DL 11.2-15.7 L 410) HEMATOCRIT (BEAKER) (test code = 31.3 % 34.1-44.9 L 411) MEAN CORPUSCULAR VOLUME (BEAKER) 95.1 fL 79.4-94.8 H (test code = 753) [...] (test code = 413) NEUTROPHILS RELATIVE PERCENT 53 % (BEAKER) (test code = 429) LYMPHOCYTES RELATIVE PERCENT 35 % (BEAKER) (test code = 430) MONOCYTES RELATIVE PERCENT 8 % (BEAKER) (test code = 431) EOSINOPHILS RELATIVE PERCENT 3 % (BEAKER) (test code = 432) BASOPHILS RELATIVE PERCENT 1 % (BEAKER) (test code = 437) NEUTROPHILS ABSOLUTE COUNT 2.80 K/ L 1.56-6.13 (BEAKER) (test code = 670) LYMPHOCYTES ABSOLUTE COUNT 1.86 K/ L 1.18-3.74 (BEAKER) (test code = 414) MONOCYTES ABSOLUTE COUNT (BEAKER) 0.44 K/ L 0.24-0.36 H (test code = 415) EOSINOPHILS ABSOLUTE COUNT 0.15 K/ L 0.04-0.36 (BEAKER) (test code = 416) BASOPHILS ABSOLUTE COUNT (BEAKER) 0.05 K/ L 0.01-0.08 (test code = 417) IMMATURE GRANULOCYTES-RELATIVE 0 % 0-1 PERCENT (BEAKER) (test code = 2801) SARS-COV2/RT-PCR ([facility])2019-10-13 21:12:00 Test Item Value Reference Range Interpretation Comments SARS-COV2/RT-PCR (test code = Positive Not Detected, Negative A A 8484187) SARS-COV-[address] [facility] (test code = 0556617) Results are for the detection of SARS-CoV-2 [...] for this assay is 800 copies/mL.This SARS CoV-2 test is a real-time RT-PCR test intended for the qualitative detection of nucleic acid from SARS-CoV-2 in a nasopharyngeal swab specimen collected from individuals suspected of COVID-19 by their healthcare provider.This test has not been Food and Drug Administration (FDA) cleared or approved. This is a modified version of an approvedEmergency Use Authorization (EUA) and is in the process of review by the FDA. Once authorized by theFDA, the issued EUA will be effective until the declaration that circumstances exist justifying the authorization of the emergency use of in vitro diagnostic tests for detection and/or diagnosis of COVID-19 is terminated under Section 564(b)(2) of the Act or the EUA is revoked under Section 564(g) of the Act.Fact Sheet for Healthcare Providers:https://www.[employer]/sites/default/files/product/documen ts/Bvyq_Ecxxn_XS_Vfowxcase_Tifs_FRNM-BbD-0.pdfFact Sheet for Healthcare Patients:https://www.[employer]/sites/default/files/product/documents/Aqyl_Hbhed_Nskgatto_Cooy_PDRE-SgS-5.pdf Performing Laboratory:[facility] [place], [place] [address]IQLMAHLTE CULTURE + GRAM [id number] 17:14:00 Test Item Value Reference Range Interpretation [...] gram negative (BEAKER) (test code rods = 253089) POCT-GLUCOSE [id number] 06:16:00 Test Item Value Reference Range Interpretation Comments POC-GLUCOSE METER 119 mg/dL 70-110 H : TESTED A T [facility] 7[facility] (BEAKER) (test code CAMBRIDG E BLDG A, = 1538) [facility] 7703 0: Sales And Marketing Engineer/Techni santana ID = [id number] for ABI RAMOS BASIC METABOLIC [id number] 02:40:00 Test Item Value Reference Range Interpretation [...] APPLICABLE FOR DIALYSIS PATIEN TS. BASIC METABOLIC [id number] 09:47:00 Test Item Value Reference Range Interpretation [...] NOT APPLICABLE FOR DIALYSIS PATIEN TS. POCT-GLUCOSE [id number] 06:23:00 Test Item Value Reference Range Interpretation Comments POC-GLUCOSE METER 120 mg/dL 70-110 H : TESTED A T [facility] [address] (BEAKER) (test code PRABHJOT STRAUSS A, = 1538) [place] [id number] 0: Sales And Marketing Engineer/Techni santana ID = [id number] for HAY JIMENEZ POCT-GLUCOSE [id number] 21:03:00 Test Item Value Reference Range Interpretation Comments POC-GLUCOSE METER 174 mg/dL 70-110 H : TESTED A T [facility] [address] (BEAKER) (test code PRABHJOT Dickens BLDG A, = 1538) [place] 7703 0: Sales And Marketing Engineer/Techni santana ID = [id number] for HAY JIMENEZ [id number] 12:10:00 Test Item Value Reference Range Interpretation Comments MAGNESIUM (BEAKER) (test code = 2.1 mg/dL 1.6-2.6 627) COMPREHENSIVE METABOLIC [id number] 12:10:00 Test Item Value Reference Range Interpretation [...] PATIEN TS. CBC W/PLT COUNT & AUTO [id number] 12:08:00 Test Item Value Reference Range Interpretation [...] PERCENT (BEAKER) (test code = 2801) POCT-GLUCOSE [id number] 06:28:00 Test Item Value Reference Range Interpretation Comments POC-GLUCOSE METER 128 mg/dL 70-110 H : TESTED A T [facility] 7200 (BEAKER) (test code PRABHJOT STRAUSS A, = 1538) [place] [address] 0: Sales And Marketing Engineer/Techni santana ID = [id number] for WICHOTIARA CAGLE POCT-GLUCOSE [id number] 06:39:00 Test Item Value Reference Range Interpretation Comments POC-GLUCOSE METER 116 mg/dL 70-110 H : TESTED A T [facility] [address] (BEAKER) (test code CAMBRIDG E BLDG A, = 1538) [place] [address] 0: Sales And Marketing Engineer/Techni santana ID = [id number] for WICHOTIARA CAGLE POCT-GLUCOSE [id number] 21:34:00 Test Item Value Reference Range Interpretation Comments POC-GLUCOSE METER 145 mg/dL 70-110 H : TESTED A T [facility] [address] (BEAKER) (test code CAMBRIDG E BLDG A, = 1538) [place] [address] 0: Sales And Marketing Engineer/Techni santana ID = [id number] for WICHOTIARA CAGLE POCT-GLUCOSE [id number] 16:44:00 Test Item Value Reference Range Interpretation Comments POC-GLUCOSE METER 150 mg/dL 70-110 H : TESTED A T [facility] [address] (BEAKER) (test code CAMBR[place]G E BLDG A, = 1538) [place] [address] 0: Sales And Marketing Engineer/Techni santana ID = [id number] for JONNIE QUINTERO POCT-GLUCOSE [id number] 11:48:00 Test Item Value Reference Range Interpretation Comments POC-GLUCOSE METER 133 mg/dL 70-110 H : TESTED A T [facility] [address] (BEAKER) (test code CAMBRIDG E BLDG A, = 1538) [place] [address] 0: Sales And Marketing Engineer/Techni santana ID = [id number] for JONNIE QUINTERO POCT-GLUCOSE [id number] 07:14:00 Test Item Value Reference Range Interpretation Comments POC-GLUCOSE METER 118 mg/dL 70-110 H : TESTED A T [facility] [address] (BEAKER) (test code CAMBRIDG E BLDG A, = 1538) [place] [address] 0: Sales And Marketing Engineer/Techni santana ID = [id number] for TIARA PIERRE POCT-GLUCOSE [id number] 23:21:00 Test Item Value Reference Range Interpretation Comments POC-GLUCOSE METER 214 mg/dL 70-110 H : TESTED A T [facility] [address] (BEAKER) (test code CAMBRIDG E BLDG A, = 1538) [place] [address] 0: Sales And Marketing Engineer/Techni santana ID = [id number] for TIARA PIERRE POCT-GLUCOSE [id number] 16:15:00 Test Item Value Reference Range Interpretation Comments POC-GLUCOSE METER 169 mg/dL 70-110 H : TESTED A T [facility] [address] (BEAKER) (test code CAMBRIDG E BLDG A, = 1538) [place] [address] 0: Sales And Marketing Engineer/Techni santana ID = [id number] for OMIW ANGELA, SYRIETA POCT-GLUCOSE [id number] 11:21:00 Test Item Value Reference Range Interpretation Comments POC-GLUCOSE METER 164 mg/dL 70-110 H : TESTED A T [facility] 7[address] (BEAKER) (test code CAMBRIDG E BLDG A, = 1538) [place] [address] 0: Sales And Marketing Engineer/Techni santana ID = [id number] for OMIW ANGELA, SYRIETA POCT-GLUCOSE [id number] 06:46:00 Test Item Value Reference Range Interpretation Comments POC-GLUCOSE METER 119 mg/dL 70-110 H : TESTED A T [facility] (BEAKER) (test code CAMBRIDG E BLDG A, = 1538) [place] [address] 0: Sales And Marketing Engineer/Techni santana ID = [id number] for NICA , HAY POCT-GLUCOSE [id number] 20:54:00 Test Item Value Reference Range Interpretation Comments POC-GLUCOSE METER 174 mg/dL 70-110 H : TESTED A T [facility] [address] (BEAKER) (test code CAMBRIDG E BLDG A, = 1538) [place] [address] 0: Sales And Marketing Engineer/Techni santana ID = [id number] for NICA , HAY POCT-GLUCOSE [id number] 17:47:00 Test Item Value Reference Range Interpretation Comments POC-GLUCOSE METER 111 mg/dL 70-110 H : TESTED A T [facility] (BEAKER) (test code CAMBRIDG E BLDG A, = 1538) [place] [address] 0: Sales And Marketing Engineer/Techni santana ID = [id number] for OMIW ANGELA, SYRIETA RAD, ABDOMEN/KUB, 1 VIEW [id number] 14:15:00Reason for exam:->constipation, abdominal painShould this be performed at the bedside?->YesFINAL REPORT EXAM: Abdomen one ViewsINDICATION: constipation, abdominal painCOMPARISON: None FINDINGS:Mild amount of stool in the colon.No dilated loops of small bowel. Retained oral contrast in multiple diverticula throughout the left colon. Right upper quadrant 7 mm calcification may reflect additional calcified diverticula. No renal calculi. No abnormal soft tissue masses. Adva nced degenerative changes in the lumbar spine and pelvis. Right upper quadrant cholecystectomy surgical clips. IMPRESSION:1.Diffuse diverticulosis throughout the left colon and possible right upper quadrant.2.Mild amount of retained stool throughout the colon without bowel dilatation. Signed: Leigh Keene Verified Date/Time: 09/24/2019 14:15:34 Reading Location: [facility] Reading Room [address] [place] [address] RAD, CHEST, 1 VIEW, NON [id number] 13:22:00Reason for exam:->h/o CABG, f/u venous congestion and pleural effusionShould this be performed atthe bedside?->YesFINAL REPORT EXAM: PA view of the chest. COMPARISON: 09/18/2019 CLINICAL HISTORY: h/o CABG, f/u venous congestion and pleural effusion FINDINGS: Lines/tubes: Right and left IJ hemodi alysis catheters have been removed. Lungs: Mild worsening bilateral interstitial edema. Subsegmentalatelectasis in both lung bases, increased. Pleura: Small [...] small bilateral pleural effusions. Signed: Leigh Almodovar Verified Date/Time: 09/24/2019 13:22:42 Reading Location: [facility] Reading Room [address] [place] [address] POCT-GLUCOSE [id number] 12:17:00 Test Item Value Reference Range Interpretation Comments POC-GLUCOSE METER 193 mg/dL 70-110 H : TESTED A T [facility] (BEAKER) (test code CAMBRIDG E BLDG A, = 1538) [place] [address] 0: Sales And Marketing Engineer/Techni santana ID = [id number] for MUSA FLOWERA POCT-GLUCOSE [id number] 06:22:00 Test Item Value Reference Range Interpretation Comments POC-GLUCOSE METER 130 mg/dL 70-110 H : TESTED A T [facility] (BEAKER) (test code CAMBRIDG E BLDG A, = 1538) [place] [address] 0: Sales And Marketing Engineer/Techni santana ID = [id number] for RICHARDCHAR ROPERA POCT-GLUCOSE [id number] 20:43:00 Test Item Value Reference Range Interpretation Comments POC-GLUCOSE METER 196 mg/dL 70-110 H : TESTED A T [facility] (BEAKER) (test code CAMBRIDG E BLDG A, = 1538) [place] [address] 0: Sales And Marketing Engineer/Techni santana ID = [id number] for SHAN RAMOSRINA POCT-GLUCOSE [id number] 17:05:00 Test Item Value Reference Range Interpretation Comments POC-GLUCOSE METER 163 mg/dL 70-110 H : TESTED A T [facility] (BEAKER) (test code CAMBRIDG E BLDG A, = 1538) [place] [address] 0: Sales And Marketing Engineer/Techni santana ID = [id number] for NWAJ IAKU, JACKY POCT-GLUCOSE [id number] 12:02:00 Test Item Value Reference Range Interpretation Comments POC-GLUCOSE METER 204 mg/dL 70-110 H : TESTED A T [facility] (BEAKER) (test code CAMBRIDG E BLDG A, = 1538) [place] [address] 0: Sales And Marketing Engineer/Techni santana ID = [id number] for NWAJ IAKU, JACKY POCT-GLUCOSE [id number] 06:22:00 Test Item Value Reference Range Interpretation Comments POC-GLUCOSE METER 127 mg/dL 70-110 H : TESTED A T [facility] (BEAKER) (test code CAMBRIDG E BLDG A, = 1538) [place] [address] 0: Sales And Marketing Engineer/Techni santana ID = [id number] for ABI RAMOS POCT-GLUCOSE [id number] 20:36:00 Test Item Value Reference Range Interpretation Comments POC-GLUCOSE METER 236 mg/dL 70-110 H : TESTED A T [facility] (BEAKER) (test code CAMBRIDG E BLDG A, = 1538) [place] [address] 0: Sales And Marketing Engineer/Techni santana ID = [id number] for ABI RAMOS POCT-GLUCOSE [id number] 16:53:00 Test Item Value Reference Range Interpretation Comments POC-GLUCOSE METER 205 mg/dL 70-110 H : TESTED A T [facility] (BEAKER) (test code CAMBRIDG E BLDG A, = 1538) [place] [address] 0: Sales And Marketing Engineer/Techni santana ID = [id number] for JONNIE QUINTERO POCT-GLUCOSE [id number] 12:20:00 Test Item Value Reference Range Interpretation Comments POC-GLUCOSE METER 201 mg/dL 70-110 H : TESTED A T [facility] (BEAKER) (test code CAMBRIDG E BLDG A, = 1538) [place] [address] 0: Sales And Marketing Engineer/Techni santana ID = [id number] for JONNIE QUINTERO POCT-GLUCOSE [id number] 07:11:00 Test Item Value Reference Range Interpretation Comments POC-GLUCOSE METER 134 mg/dL 70-110 H : TESTED A T [facility] (BEAKER) (test code CAMBRIDG E BLDG A, = 1538) [place] [address] 0: Sales And Marketing Engineer/Techni santana ID = [id number] for WICHO ROBBIE TIARA VITAMIN B12 AND [id number] 06:31:00 Test Item Value Reference Range Interpretation Comments VITAMIN B12 (BEAKER) (test code = 856 pg/mL 211-710 064) FOLATE (BEAKER) (test code = 362) 12.43 ng/mL >=5.40 TSH/FREE T4 IF [id number] 05:57:00 Test Item Value Reference Range Interpretation Comments THYROID STIMULATING HORMONE 1.234 uIU/mL 0.350-5.500 (BEAKER) (test code = 772) POCT-GLUCOSE [id number] 20:59:00 Test Item Value Reference Range Interpretation Comments POC-GLUCOSE METER 225 mg/dL 70-110 H : TESTED A T [facility] (BEAKER) (test code CAMBRIDG E BLDG A, = 1538) [place] [address] 0: Sales And Marketing Engineer/Techni santana ID = [id number] for TIARA PIERRE POCT-GLUCOSE [id number] 16:55:00 Test Item Value Reference Range Interpretation Comments POC-GLUCOSE METER 198 mg/dL 70-110 H : TESTED A T [facility] (BEAKER) (test code CAMBRIDG E BLDG A, = 1538) [place] [address] 0: Sales And Marketing Engineer/Techni santana ID = [id number] for AMIE BEGUM, JUCEL ADAM POCT-GLUCOSE [id number] 12:12:00 Test Item Value Reference Range Interpretation Comments POC-GLUCOSE METER 254 mg/dL 70-110 H : TESTED A T [facility] (BEAKER) (test code CAMBRIDG E BLDG A, = 1538) [place] [address] 0: Sales And Marketing Engineer/Techni santana ID = [id number] for AMIE BEGUM, JUCEL ADAM POCT-GLUCOSE [id number] 06:08:00 Test Item Value Reference Range Interpretation Comments POC-GLUCOSE METER 132 mg/dL 70-110 H : TESTED A T [facility] (BEAKER) (test code CAMBRIDG E BLDG A, = 1538) [place] [address] 0: Sales And Marketing Engineer/Techni santana ID = [id number] for Indio Weaver COMPREHENSIVE METABOLIC [id number] 05:52:00 Test Item Value Reference Range Interpretation [...] S NOT APPLICABLE FOR DIALYSIS PATIEN TS. [id number] 05:52:00 Test Item Value Reference Range Interpretation Comments PHOSPHORUS (BEAKER) (test code = 3.3 mg/dL 2.3-4.7 604) CBC W/PLT COUNT & AUTO [id number] 05:36:00 Test Item Value Reference Range Interpretation [...] PERCENT (BEAKER) (test code = 2801) POCT-GLUCOSE [id number] 20:47:00 Test Item Value Reference Range Interpretation Comments POC-GLUCOSE METER 232 mg/dL 70-110 H : TESTED A T [facility] (BEAKER) (test code CAMBRIDG E BLDG A, = 1538) [place] [address] 0: Sales And Marketing Engineer/Techni santana ID = [id number] for HAY JIMENEZ POCT-GLUCOSE [id number] 16:39:00 Test Item Value Reference Range Interpretation Comments POC-GLUCOSE METER 211 mg/dL 70-110 H : TESTED A T [facility] (BEAKER) (test code CAMBRIDG E BLDG A, = 1538) [place] [address] 0: Sales And Marketing Engineer/Techni santana ID = [id number] for AARON ERA, PARVEEN POCT-GLUCOSE [id number] 11:51:00 Test Item Value Reference Range Interpretation Comments POC-GLUCOSE METER 195 mg/dL 70-110 H : TESTED A T [facility] (BEAKER) (test code CAMBRIDG E BLDG A, = 1538) [place] [address] 0: Sales And Marketing Engineer/Techni santana ID = [id number] for AARON ERA, PARVEEN POCT-GLUCOSE [id number] 06:12:00 Test Item Value Reference Range Interpretation Comments POC-GLUCOSE METER 128 mg/dL 70-110 H : TESTED A T [facility] (BEAKER) (test code CAMBRIDG E BLDG A, = 1538) [place] [address] 0: Sales And Marketing Engineer/Techni santana ID = [id number] for HAY JIMENEZ [id number] 05:48:00 Test Item Value Reference Range Interpretation Comments PHOSPHORUS (BEAKER) (test code = 2.6 mg/dL 2.3-4.7 604) POCT-GLUCOSE [id number] 20:39:00 Test Item Value Reference Range Interpretation Comments POC-GLUCOSE METER 189 mg/dL 70-110 H : TESTED A T [facility] (BEAKER) (test code CAMBRIDG E BLDG A, = 1538) [place] [address] 0: Sales And Marketing Engineer/Techni santana ID = [id number] for HAY JIMENEZ POCT-GLUCOSE [id number] 17:03:00 Test Item Value Reference Range Interpretation Comments POC-GLUCOSE METER 175 mg/dL 70-110 H : TESTED A T [facility] (BEAKER) (test code CAMBRIDG E BLDG A, = 1538) [place] [address] 0: Sales And Marketing Engineer/Techni santana ID = [id number] for NWAJ IAKU, JACKY POCT-GLUCOSE [id number] 12:14:00 Test Item Value Reference Range Interpretation Comments POC-GLUCOSE METER 142 mg/dL 70-110 H : TESTED A T [facility] (BEAKER) (test code CAMBRIDG E BLDG A, = 1538) [place] [address] 0: 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 [id number] 07:05:00 Test Item Value Reference Range Interpretation Comments MAGNESIUM (BEAKER) (test code = 1.9 mg/dL 1.6-2.6 627) POCT-GLUCOSE [id number] 06:33:00 Test Item Value Reference Range Interpretation Comments POC-GLUCOSE METER 121 mg/dL 70-110 H : TESTED A T [facility] (BEAKER) (test code CAMBRIDG E BLDG A, = 1538) [place] [address] 0: Sales And Marketing Engineer/Techni satnana ID = [id number] for ABI RAMOS CBC W/PLT COUNT & AUTO [id number] 06:24:00 Test Item Value Reference Range Interpretation [...] 0-1 PERCENT (BEAKER) (test code = 2801) [id number] 06:23:00 Test Item Value Reference Range Interpretation Comments PHOSPHORUS (BEAKER) (test code = 2.8 mg/dL 2.3-4.7 604) POCT-GLUCOSE [id number] 20:51:00 Test Item Value Reference Range Interpretation Comments POC-GLUCOSE METER 166 mg/dL 70-110 H : TESTED A T [facility] (BEAKER) (test code CAMBRIDG E BLDG A, = 1538) [facility] 770 0: Sales And Marketing Engineer/Techni santana ID = [id number] for ABI RAMOS POCT-GLUCOSE [id number] 18:21:00 Test Item Value Reference Range Interpretation Comments POC-GLUCOSE METER 159 mg/dL 70-110 H : TESTED A T [facility] (BEAKER) (test code CAMBRIDG E BLDG A, = 1538) [facility] 770 0: Sales And Marketing Engineer/Techni santana ID = [id number] for NWAShirin IAKU, JACKY FL, [id number] 14:37:00Reason for exam:->gerdFINAL REPORT Barium esophagogram Clinical [...] 1.3 minutes Number of images obtained: 13 Impression:Moderate to severe gastroesophageal reflux. Signed: Karin Henao Verified Date/Time: 09/18/2019 14:37:01 Reading Location: [address] Consult Reading Room POCT-GLUCOSE [id number] 14:31:00 Test Item Value Reference Range Interpretation Comments POC-GLUCOSE METER 166 mg/dL 70-110 H : TESTED A T [facility] (BEAKER) (test code = KAVYA R [facility], 1538) [address]: Sales And Marketing Engineer/Techni santana ID = [id number] for MELISSA GILLILAND FL, ESOPH, SWALLOW FUNCTION, WITH CINE OR [id number] 13:23:00MBSS w/robin + esophagram as feasibleReason for exam:->dysphagia, aspiration, reflux, motilityFINAL REPORT Modified barium swallow exam with speech pathology service CLINICAL HISTORY: dysphagia, aspiration, reflux, motility IMPRESSION: Please see the speech pathology service report for details. Barium contrast of multiple consistencies is given to the patient to swallow. Fl uoroscopic observation is performed during swallowing. No aspiration. Fluoro time: Two minutes Number of images: 12 Signed: Karin Henaoeport Verified Date/Time: 09/18/2019 13:23:18 Reading Location: [address] Ortho Consult Reading Room -GLUCOSE [id number] 11:13:00 Test Item Value Reference Range Interpretation Comments POC-GLUCOSE METER 115 mg/dL 70-110 H : TESTED A T [facility] 6720 (BEAKER) (test code = [facility], 1538) [address]: Sales And Marketing Engineer/Techni santana ID = [id number] for MELISSA GILLILAND CBC W/PLT COUNT & AUTO [id number] 11:02:00 Test Item Value Reference Range Interpretation [...] 0-1 PERCENT (BEAKER) (test code = 2801) [id number] 06:59:00 Test Item Value Reference Range Interpretation Comments PHOSPHORUS (BEAKER) (test code = 2.1 mg/dL 2.3-4.7 L 604) Sales And Marketing Engineer ID - DANO [id number] 06:59:00 Test Item Value Reference Range Interpretation Comments MAGNESIUM (BEAKER) (test code = 2.0 mg/dL 1.6-2.6 627) Sales And Marketing Engineer ID - DANO MBASIC METABOLIC [id number] 06:59:00 Test Item Value Reference Range Interpretation [...] S NOT APPLICABLE FOR DIALYSIS PATIEN TS. Sales And Marketing Engineer ID - DANO MRAD, CHEST, 1 VIEW, NON [id number] 04:57:00Reason for exam:->CTShould this be performed at [...] Additional findings: None. Signed: Abhinav Cuevaseport Verified Date/Time: 09/18/2019 04:57:13 POCT-GLUCOSE [id number] 21:54:00 Test Item Value Reference Range Interpretation Comments POC-GLUCOSE METER 164 mg/dL 70-110 H : TESTED A T [facility]20 ([facility]) (test code = [facility] immoture.be [facility], 1538) [address]: Sales And Marketing Engineer/Techni santana ID = [id number] for BIANCA RICHARDS POCT-GLUCOSE [id number] 21:34:00 Test Item Value Reference Range Interpretation Comments POC-GLUCOSE METER 165 mg/dL 70-110 H : TESTED A T [facility] 6720 ([facility]) (test code = [facility] immoture.be [facility], 1538) [address]: Sales And Marketing Engineer/Techni santana ID = [id number] for MELISSA GILLILAND URINALYSIS W/ REFLEX URINE [id number] 17:29:00 Test Item Value Reference Range Interpretation [...] = 1584) SOURCE(BEAKER) (test code = 2795) Sales And Marketing Engineer ID - [auto]Sales And Marketing Engineer ID - techPOCT-GLUCOSE [id number] 12:48:00 Test Item Value Reference Range Interpretation Comments POC-GLUCOSE METER 168 mg/dL 70-110 H : TESTED A T [facility] 6720 (BEAKER) (test code = [place], 153) [address]: Sales And Marketing Engineer/Techni santana ID = [id number] for MELISSA GILLILAND RAD, CHEST, 1 VIEW, NON [id number] 08:52:00Reason for exam:->CTShould this be performed at the bedside?->YesFINAL REPORT CLINICAL HISTORY: CT TECHNIQUE: 1 view of the chest. COMPARISON: 09/16/2019 IMPRESSION: The right jugular line has been removed. There is a new right PICC line in the right axilla, which should be replaced. Midline chest tube has been removed. A left lower chest tube remains. Left lower chest wall subcutaneous emphysema is again seen. There is no pneumothorax. Bilateral lower lung airspace opacities appear increased. Small bilateral pleural effusions are again seen. T he cardiomediastinal silhouette is magnified by technique with sternotomy wires. Signed: Tiara Cota MDReport Verified Date/Time: 09/17/2019 08:52:23 Reading Location: [facility] ReadingRoom POCT-GLUCOSE [id number] 08:29:00 Test Item Value Reference Range Interpretation Comments POC-GLUCOSE METER 102 mg/dL 70-110 : [facility]ER[facility] (test code = KAVYA [place] [facility], 1538) [address]: Sales And Marketing Engineer/Techni santana ID = [id number] for MELISSA GILLILAND [id number] 06:46:00 Test Item Value Reference Range Interpretation Comments PHOSPHORUS (BEAKER) (test code = 1.9 mg/dL 2.3-4.7 L 604) Sales And Marketing Engineer ID - PIAYA [id number] 06:46:00 Test Item Value Reference Range Interpretation Comments MAGNESIUM (BEAKER) (test code = 2.3 mg/dL 1.6-2.6 627) Sales And Marketing Engineer ID - PIAYA LBASIC METABOLIC [id number] 06:46:00 Test Item Value Reference Range Interpretation [...] S NOT APPLICABLE FOR DIALYSIS PATIEN TS. Sales And Marketing Engineer ID - PIAYA LCBC W/PLT COUNT & AUTO [id number] 06:20:00 Test Item Value Reference Range Interpretation [...] PERCENT (BEAKER) (test code = 2801) POCT-GLUCOSE [id number] 21:06:00 Test Item Value Reference Range Interpretation Comments POC-GLUCOSE METER 172 mg/dL 70-110 H : TESTED A T [facility] 6720 (BEAKER) (test code = [facility], 1538) [address]: Sales And Marketing Engineer/Techni santana ID = [id number] for BIANCA RICHARDS POCT-GLUCOSE [id number] 12:38:00 Test Item Value Reference Range Interpretation Comments POC-GLUCOSE METER 181 mg/dL 70-110 H : TESTED A T [facility] 6720 (BEAKER) (test code = [facility], 1538) 05[address]: Sales And Marketing Engineer/Techni santana ID = [id number] for KARUNA NOVAK, BRITTANY RAD, CHEST, 1 VIEW, NON [id number] 09:32:00Reason for exam:->CTShould this be performed at the bedside?->YesFINAL REPORT CLINICAL HISTORY: CT TECHNIQUE: 1 view of the chest. COMPARISON: 09/15/2019 IMPRESSION: The supporting lines and tubes are similar appearing. There is no pneumothorax. Bilateral lower lung bandlike opacities are similar appearing. There is no significant appearing pleural fluid. The cardiomediastinal silhouette is magnified by technique with sternotomy wires. Signed: Tiara Ctoa MDReport Verified Date/Time: 09/16/2019 09:32:30 Reading Location: [facility] Reading Room [id number] 04:09:00 Test Item Value Reference Range Interpretation Comments PHOSPHORUS (BEAKER) (test code = 3.2 mg/dL 2.3-4.7 604) Sales And Marketing Engineer ID - DANO [id number] 04:09:00 Test Item Value Reference Range Interpretation Comments MAGNESIUM (BEAKER) (test code = 2.2 mg/dL 1.6-2.6 627) Sales And Marketing Engineer ID - DANO MBASIC METABOLIC [id number] 04:09:00 Test Item Value Reference Range Interpretation [...] S NOT APPLICABLE FOR DIALYSIS PATIEN TS. Sales And Marketing Engineer ID - DANO [id number] 04:07:00 Test Item Value Reference Range Interpretation [...] is 2.5-3.5 for patients wiht mechanical heart valves.CBC (HEMOGRAM [...] WBC 0-0 (test code = 413) CALCIUM, [id number] 03:46:00 Test Item Value Reference Range Interpretation Comments CALCIUM IONIZED (BEAKER) (test 1.14 mmol/L 1.12-1.27 code = 698) PH, BLOOD (BEAKER) (test code = 7.34 1810) POCT-GLUCOSE [id number] 22:42:00 Test Item Value Reference Range Interpretation Comments POC-GLUCOSE METER 180 mg/dL 70-110 H : TESTED A T [facility] 6720 (BEAKER) (test code = [facility] [place], 1538) [address]: Sales And Marketing Engineer/Techni santana ID = [id number] for ARI RVED, PRIYANKA POCT-GLUCOSE [id number] 18:26:00 Test Item Value Reference Range Interpretation Comments POC-GLUCOSE METER 149 mg/dL 70-110 H : TESTED A T [facility] 6720 (BEAKER) (test code = [facility], 1538) [address]: Sales And Marketing Engineer/Techni santana ID = [id number] for BARRENTINE, LB PHEN POCT-GLUCOSE [id number] 15:18:00 Test Item Value Reference Range Interpretation Comments POC-GLUCOSE METER 194 mg/dL 70-110 H : TESTED A T [facility] 6720 (BEAKER) (test code = [facility], 1538) 97[address]: Sales And Marketing Engineer/Techni santana ID = [id number] for BARRENTINE, LB PHEN CBC (HEMOGRAM ONLY)2019-09-15 [...] WBC 0-0 (test code = 413) POCT-GLUCOSE [id number] 08:26:00 Test Item Value Reference Range Interpretation Comments POC-GLUCOSE METER 87 mg/dL 70-110 : TESTED A T [facility] 6720 (BEAKER) (test code = [facility], 1538) 315[address]: Sales And Marketing Engineer/Techni santana ID = [id number] for JAIRO BRAVO POCT-GLUCOSE [id number] 06:12:00 Test Item Value Reference Range Interpretation Comments POC-GLUCOSE METER 106 mg/dL 70-110 : TESTED A T [facility] 6720 (BEAKER) (test code = [facility], 1538) 52454: Sales And Marketing Engineer/Techni santana ID = [id number] for CE RVANTES, PRIYANKA BLOOD GAS, [id number] 05:38:00 Test Item Value Reference Range Interpretation [...] (test code = 1819) 36.0 % POCT-GLUCOSE [id number] 05:22:00 Test Item Value Reference Range Interpretation Comments POC-GLUCOSE METER 112 mg/dL 70-110 H : TESTED A T [facility] 6720 (BEAKER) (test code = [facility], 1538) 823[address]: Sales And Marketing Engineer/Techni santana ID = [id number] for CE RVANTES, PRIYANKA OXYGEN SATURATION, [id number] 04:44:00 Test Item Value Reference Range Interpretation Comments O2 SATURATION (MEASURED) (BEAKER) 90.6 % (test code = 1455) CALCIUM, [id number] 04:13:00 Test Item Value Reference Range Interpretation Comments CALCIUM IONIZED (BEAKER) (test 1.15 mmol/L 1.12-1.27 code = 698) PH, BLOOD (BEAKER) (test code = 7.34 1810) LACTIC ACID, [id number] 04:04:00 Test Item Value Reference Range Interpretation Comments LACTATE BLOOD ARTERIAL (2) 1.1 mmol/L 0.5-2.2 (BEAKER) (test code = 0254) Sales And Marketing Engineer ID - DANO [id number] 04:04:00 Test Item Value Reference Range Interpretation Comments PHOSPHORUS (BEAKER) (test code = 3.7 mg/dL 2.3-4.7 604) Sales And Marketing Engineer ID - DANO [id number] 04:04:00 Test Item Value Reference Range Interpretation Comments MAGNESIUM (BEAKER) (test code = 2.5 mg/dL 1.6-2.6 627) Sales And Marketing Engineer ID - DANO MBASIC METABOLIC [id number] 04:04:00 Test Item Value Reference Range Interpretation [...] S NOT APPLICABLE FOR DIALYSIS PATIEN TS. Sales And Marketing Engineer ID - DANO [id number] 04:01:00 Test Item Value Reference Range Interpretation [...] is 2.5-3.5 for patients wiht mechanical heart valves.CBC (HEMOGRAM [...] 0-0 (BEAKER) (test code = 413) POCT-GLUCOSE [id number] 03:45:00 Test Item Value Reference Range Interpretation Comments POC-GLUCOSE METER 125 mg/dL 70-110 H : TESTED A T [facility] 6720 (BEAKER) (test code = [place], 1538) [address]: Sales And Marketing Engineer/Techni santana ID = [id number] for CE RVANTES, PRIYANKA RAD, CHEST, 1 VIEW, NON [id number] 02:16:00while patient is intubated or has chest tubes.Reason for exam:->Status post CV SurgeryShould thisbe performed at the bedside?->YesFINAL REPORT CLINICAL INDICATION: Postop Comparison: 09/14/2019 at 1736 hours Thecardiomediastinal contours are stable. The lung volumes have decreased after extubation. Worsening infrahilar opacities may reflect atelectasis but pneumonitis should be excluded clinically. There is no pneumothorax. Remaining support lines are stable. Signed: Chema Ibrahim MDReport Verified Date/Time: 09/15/2019 02:16:54 POCT-GLUCOSE [id number] 01:53:00 Test Item Value Reference Range Interpretation Comments POC-GLUCOSE METER 111 mg/dL 70-110 H : TESTED A T [facility] 6720 (BEAKER) (test code = [facility], 1538) 39785: Sales And Marketing Engineer/Techni santana ID = [id number] for CE RVED, PRIYANKA POCT-GLUCOSE [id number] 00:23:00 Test Item Value Reference Range Interpretation Comments POC-GLUCOSE METER 140 mg/dL 70-110 H : TESTED A T [facility] 6720 (BEAKER) (test code = [facility], 1538) 32675: Sales And Marketing Engineer/Techni santana ID = [id number] for CE RVED, PRIYANKA POCT-GLUCOSE [id number] 00:23:00 Test Item Value Reference Range Interpretation Comments POC-GLUCOSE METER 150 mg/dL 70-110 H : TESTED A T [facility] 6720 (BEAKER) (test code = [facility], 1538) [id number]: Sales And Marketing Engineer/Techni santana ID = [id number] for CE RVANTES, PRIYANKA POCT-GLUCOSE [id number] 00:23:00 Test Item Value Reference Range Interpretation Comments POC-GLUCOSE METER 129 mg/dL 70-110 H : TESTED A T [facility] 6720 (BEAKER) (test code = [facility], 1538) 94308: Sales And Marketing Engineer/Techni santana ID = [id number] for CE RVANTES, PRIYANKA POCT-GLUCOSE [id number] 00:23:00 Test Item Value Reference Range Interpretation Comments POC-GLUCOSE METER 143 mg/dL 70-110 H : TESTED A T [facility] 6720 (BEAKER) (test code = [place], 1538) [address]: Sales And Marketing Engineer/Techni santana ID = [id number] for CE RVED, PRIYANKA RAD, CHEST, 1 VIEW, NON [id number] 22:37:00Reason for exam:->Resp failure/ vent changes madeShould this be performed at the bedside?->YesFINAL REPORT CLINICAL INDICATION: Respiratory failure Comparison: 09/14/2019 at 1526 hours The cardiomediastinal contours are stable. There is improved aeration of the left lung. Theleft hemidiaphragm remains elevated. Retrocardiac opacity in the left lung may reflect atelectasis or scarring. Pneumonitis should be excluded clinically. The right lung is clear. There is no pneumothorax, large pleural collection or evidence of overt pulmonary edema. Support lines are stable. Signed:Chema Ibrahim MDReport Verified Date/Time: 09/14/2019 22:37:51 [id number] 21:29:00 Test Item Value Reference Range Interpretation Comments PHOSPHORUS (BEAKER) (test code = 3.9 mg/dL 2.3-4.7 604) Sales And Marketing Engineer ID - [id number] 21:29:00 Test Item Value Reference Range Interpretation Comments MAGNESIUM (BEAKER) (test code = 2.5 mg/dL 1.6-2.6 627) Sales And Marketing Engineer ID - BSBASIC METABOLIC [id number] 21:29:00 Test Item Value Reference Range Interpretation [...] S NOT APPLICABLE FOR DIALYSIS PATIEN TS. Sales And Marketing Engineer ID - BSLACTIC ACID, [id number] 21:22:00 Test Item Value Reference Range Interpretation Comments LACTATE BLOOD ARTERIAL (2) 1.4 mmol/L 0.5-2.2 (BEAKER) (test code = 2874) Sales And Marketing Engineer ID - [id number] 21:21:00 Test Item Value Reference Range Interpretation [...] is 2.5-3.5 for patients wiht mechanical heart valves.BLOOD GAS, [id number] 21:16:00 Test Item Value Reference Range Interpretation Comments PH ARTERIAL (BEAKER) (test code = 7.37 7.35-7.45 383) PCO2 ARTERIAL (BEAKER) (test code 43 mmHg 35-45 = 384) PO2 ARTERIAL (BEAKER) (test code 186 mmHg 80-90 H = 385) O2 SATURATION ARTERIAL (BEAKER) 99.2 % 96.0-97.0 H (test code = 386) HCO3 ARTERIAL (BEAKER) (test code 24 mmol/L -29 = 388) BASE EXCESS ARTERIAL (BEAKER) -0.9 mmol/L -2.0-3.0 (test code = 387) PATIENT TEMPERATURE (BEAKER) 36.9 C (test code = 1818) FIO2 (BEAKER) (test code = 1819) 36.0 % CALCIUM, [id number] 21:13:00 Test Item Value Reference Range Interpretation Comments CALCIUM IONIZED (BEAKER) (test 1.08 mmol/L 1.12-1.27 L code = 698) PH, BLOOD (BEAKER) (test code = 7.37 1810) OXYGEN SATURATION, [id number] 21:12:00 Test Item Value Reference Range Interpretation [...] (BEAKER) (test code = 413) LACTIC ACID, [id number] 19:08:00 Test Item Value Reference Range Interpretation Comments LACTATE BLOOD 1.0 mmol/L 0.5-2.2 Specimen sligh tly ARTERIAL (2) (BEAKER) hemoly ieshad (test code = 2874) Sales And Marketing Engineer ID - DBPOCT-GLUCOSE [id number] 19:03:00 Test Item Value Reference Range Interpretation Comments POC-GLUCOSE METER 168 mg/dL 70-110 H : TESTED A T [facility] 6720 (BEAKER) (test code = [facility], 1538) [address]: Sales And Marketing Engineer/Techni santana ID = [id number] for ARI RVED, PRIYANKA BLOOD GAS, [id number] 18:57:00 Test Item Value Reference Range Interpretation [...] 1819) 40.0 % HGB/HCT (H&H) - STAT [id number] 18:57:00 Test Item Value Reference Range Interpretation Comments HEMOGLOBIN (BEAKER) (test code = 9.0 g/dL 12.0-15.0 L 410) HEMATOCRIT (BEAKER) (test code = 26.0 % 36.0-45.0 L 411) POCT-GLUCOSE [id number] 18:23:00 Test Item Value Reference Range Interpretation Comments POC-GLUCOSE METER 167 mg/dL 70-110 H : TESTED A T [facility] 6720 (BEAKER) (test code = [facility], 1538) [address]: Sales And Marketing Engineer/Techni santana ID = [id number] for KELSEA SANDS BASIC METABOLIC [id number] 17:34:00 Test Item Value Reference Range Interpretation [...] S NOT APPLICABLE FOR DIALYSIS PATIEN TS. Sales And Marketing Engineer ID - [id number] 16:37:00 Test Item Value Reference Range Interpretation Comments POTASSIUM (BEAKER) 4.6 meq/L 3.5-5.1 Specimen slightly (test code = 379) hemolyzed Sales And Marketing Engineer ID - [id number] 16:37:00 Test Item Value Reference Range Interpretation Comments GLUCOSE RANDOM (BEAKER) (test code 218 mg/dL 70-105 H = 652) Sales And Marketing Engineer ID - [id number] 16:12:00 Test Item Value Reference Range Interpretation Comments MAGNESIUM (BEAKER) 2.5 mg/dL 1.6-2.6 Specimen slightly (test code = 627) hemolyzed Sales And Marketing Engineer ID - [id number] 16:12:00 Test Item Value Reference Range Interpretation Comments PHOSPHORUS (BEAKER) 3.3 mg/dL 2.3-4.7 Specimen slightly (test code = 604) hemolyzed Sales And Marketing Engineer ID - BSLACTIC ACID, [id number] 16:09:00 Test Item Value Reference Range Interpretation Comments LACTATE BLOOD 1.0 mmol/L 0.5-2.2 Specimen sligh tly ARTERIAL (2) (BEAKER) hemoly zed (test code = 2874) Sales And Marketing Engineer ID - [id number] 16:05:00 Test Item Value Reference Range Interpretation Comments FIBRINOGEN LEVEL (BEAKER) (test 270 mg/dl 225-434 code = 658) [id number] 16:05:00 Test Item Value Reference Range Interpretation [...] is 2.5-3.5 for patients wiht mechanical heart valves.[id number] 16:05:00 Test Item Value Reference Range Interpretation Comments PARTIAL THROMBOPLASTIN TIME 28.7 seconds 22.5-36.0 (SHAHIDAAKER) (test code = 760) PROTHROMBIN [id number] 16:04:00 Test Item Value Reference Range Interpretation Comments PROTIME (FRANDY) (test code = 17.3 seconds 11.9-14.2 H 759) INR (BERADHA) (test code = 370) 1.5 <=5.9 Effective 09/03/2018: PT Reference Range ChangeNew: 11.9-14.2 Previous: 11.7- 14.7RECOMMENDED COUMADIN/WARFARIN INR THERAPY RANGESSTANDARD DOSE: 2.0-3.0 Includes: PROPHYLAXIS for venous thrombosis, systemic embolization; TREATMENT for venous thrombosis and/or pulmonary embolus.HIGH RISK: Target INR is 2.5-3.5 for patients wiht mechanical heart valves.CBC W/PLT COUNT & AUTO [id number] 15:57:00 Test Item Value Reference Range Interpretation Comments WHITE BLOOD CELL COUNT (SHAHIDAAKER) 11.2 K/ L 3.5-10.5 H (test code [...] = 2801) RAD, CHEST, 1 VIEW, NON [id number] 15:56:00Reason for exam:->Status post CV Surgery post [...] opacity. A left-sided pneumothorax is also suspected. Thereis mild left chest wall subcutaneous emphysema. The cardiomediastinal silhouette is shifted into theleft chest. The right lung is free of infiltrates or effusions. Signed: Tiara Cota MDReport Verified Date/Time: 09/14/2019 15:56:42 Reading Location: [facility] Reading Room PLATELET [id number] 15:53:00 Test Item Value Reference Range Interpretation Comments PLATELET COUNT (BEAKER) (test code 95 K/CU MM 150-450 L = 756) Sales And Marketing Engineer ID - [id number] NA-STAT [id number] 15:43:00 Test Item Value Reference Range Interpretation Comments SODIUM (BEAKER) (test code = 381) 136 meq/L 136-145 POTASSIUM-STAT [id number] 15:43:00 Test Item Value Reference Range Interpretation Comments POTASSIUM (BEAKER) (test code = 4.5 meq/L 3.6-5.5 379) HGB/HCT (H&H) - STAT [id number] 15:43:00 Test Item Value Reference Range Interpretation Comments HEMOGLOBIN (BEAKER) (test code = 10.2 g/dL 12.0-15.0 L 410) HEMATOCRIT (BEAKER) (test code = 30.0 % 36.0-45.0 L 411) BLOOD GAS, [id number] 15:43:00 Test Item Value Reference Range Interpretation [...] (test code = 1819) 50.0 % GLUCOSE-STAT [id number] 15:43:00 Test Item Value Reference Range Interpretation Comments GLUCOSE RANDOM (BEAKER) (test code 221 mg/dL 70-110 H = 652) BASIC METABOLIC [id number] 15:43:00 Test Item Value Reference Range Interpretation [...] 697) EGFR (BEAKER) (test 35 mL/min/1.73 ESTIMA ACRSON GFR IS code = 1092) sq m NOT ACCURATE CREATININE CLEARANCE IN PREDICTING GLOMERULAR FILTRATION RATE . ESTIMATED GFR I S NOT APPLICABLE FOR DIALYSIS PATIEN TS. Sales And Marketing Engineer ID - [id number] 15:42:00 Test Item Value Reference Range Interpretation Comments PHOSPHORUS (BEAKER) (test code = 3.9 mg/dL 2.3-4.7 604) Sales And Marketing Engineer ID - BSOXYGEN SATURATION, [id number] 15:41:00 Test Item Value Reference Range Interpretation Comments O2 SATURATION (MEASURED) (BEAKER) 78.0 % (test code = 1455) CALCIUM, [id number] 15:41:00 Test Item Value Reference Range Interpretation Comments CALCIUM IONIZED (BEAKER) (test 1.15 mmol/L 1.12-1.27 code = 698) PH, BLOOD (BEAKER) (test code = 7.36 1810) [id number] 14:22:00 Test Item Value Reference Range Interpretation Comments ACTIVATED CLOTTING TIME 109 sec : 74 -137 seconds, (BEAKER) (test code = Baseli ne: TESTED AT 441) [place] [address]: Sales And Marketing Engineer/Techni santana ID = [id number] for NG VERÓNICA, VERONICA [id number] 14:22:00 Test Item Value Reference Range Interpretation Comments ACTIVATED CLOTTING TIME 621 sec : 74 -137 seconds, (BEAKER) (test code = Baseli ne: TESTED AT 441) [place] [address]: Sales And Marketing Engineer/Techni santana ID = [id number] for NG VERÓNICA, VERONICA [id number] 14:22:00 Test Item Value Reference Range Interpretation Comments ACTIVATED CLOTTING TIME 505 sec : 74 -137 seconds, (BEAKER) (test code = Baseli ne: TESTED AT 441) [place] [address]: Sales And Marketing Engineer/Techni santana ID = [id number] for NG VERÓNICA, VERONICA [id number] 14:22:00 Test Item Value Reference Range Interpretation Comments ACTIVATED CLOTTING TIME 406 sec : 74 -137 seconds, (BEAKER) (test code = Baseli ne: TESTED AT 441) [place] [address]: Sales And Marketing Engineer/Techni santana ID = [id number] for NG VERÓNICA, VERONICA BLOOD GAS, [id number] 14:16:00 Test Item Value Reference Range Interpretation [...] code = 1819) 100.0 % SODIUM NA-STAT [id number] 14:16:00 Test Item Value Reference Range Interpretation Comments SODIUM (BEAKER) (test code = 381) 133 meq/L 136-145 L GLUCOSE-STAT [id number] 14:16:00 Test Item Value Reference Range Interpretation Comments GLUCOSE RANDOM (BEAKER) (test code 203 mg/dL 70-110 H = 652) HGB/HCT (H&H) - STAT [id number] 14:16:00 Test Item Value Reference Range Interpretation Comments HEMOGLOBIN (BEAKER) (test code = 8.8 g/dL 12.0-15.0 L 410) HEMATOCRIT (BEAKER) (test code = 26.0 % 36.0-45.0 L 411) POTASSIUM-STAT [id number] 14:15:00 Test Item Value Reference Range Interpretation Comments POTASSIUM (BEAKER) (test code = 4.8 meq/L 3.6-5.5 379) BLOOD GAS, [id number] 13:46:00 Test Item Value Reference Range Interpretation [...] (test code = 1819) 100.0 % GLUCOSE-STAT [id number] 13:46:00 Test Item Value Reference Range Interpretation Comments GLUCOSE RANDOM (BEAKER) (test code 216 mg/dL 70-110 H = 652) HGB/HCT (H&H) - STAT [id number] 13:46:00 Test Item Value Reference Range Interpretation Comments HEMOGLOBIN (BEAKER) (test code = 7.2 g/dL 12.0-15.0 L 410) HEMATOCRIT (BEAKER) (test code = 21.0 % 36.0-45.0 L 411) SODIUM NA-STAT [id number] 13:45:00 Test Item Value Reference Range Interpretation Comments SODIUM (BEAKER) (test code = 381) 135 meq/L 136-145 L POTASSIUM-STAT [id number] 13:45:00 Test Item Value Reference Range Interpretation Comments POTASSIUM (BEAKER) (test code = 5.0 meq/L 3.6-5.5 379) POTASSIUM-STAT [id number] 13:11:00 Test Item Value Reference Range Interpretation Comments POTASSIUM (BEAKER) (test code = 5.4 meq/L 3.6-5.5 379) BLOOD GAS, [id number] 13:11:00 Test Item Value Reference Range Interpretation [...] (test code = 1819) 60.0 % GLUCOSE-STAT [id number] 13:11:00 Test Item Value Reference Range Interpretation Comments GLUCOSE RANDOM (BEAKER) (test code 209 mg/dL 70-110 H = 652) SODIUM NA-STAT [id number] 13:11:00 Test Item Value Reference Range Interpretation Comments SODIUM (BEAKER) (test code = 381) 132 meq/L 136-145 L HGB/HCT (H&H) - STAT [id number] 13:11:00 Test Item Value Reference Range Interpretation Comments HEMOGLOBIN (BEAKER) (test code = 6.7 g/dL 12.0-15.0 L 410) HEMATOCRIT (BEAKER) (test code = 20.0 % 36.0-45.0 L 411) BLOOD GAS, [id number] 12:53:00 Test Item Value Reference Range Interpretation [...] (test code = 1819) 60.0 % GLUCOSE-STAT [id number] 12:53:00 Test Item Value Reference Range Interpretation Comments GLUCOSE RANDOM (BEAKER) (test code 207 mg/dL 70-110 H = 652) SODIUM NA-STAT [id number] 12:53:00 Test Item Value Reference Range Interpretation Comments SODIUM (BEAKER) (test code = 381) 132 meq/L 136-145 L HGB/HCT (H&H) - STAT [id number] 12:53:00 Test Item Value Reference Range Interpretation Comments HEMOGLOBIN (BEAKER) (test code = 6.2 g/dL 12.0-15.0 L 410) HEMATOCRIT (BEAKER) (test code = 18.0 % 36.0-45.0 L 411) POTASSIUM-STAT [id number] 12:52:00 Test Item Value Reference Range Interpretation Comments POTASSIUM (BEAKER) (test code = 4.9 meq/L 3.6-5.5 379) SODIUM NA-STAT [id number] 11:16:00 Test Item Value Reference Range Interpretation Comments SODIUM (BEAKER) (test code = 381) 137 meq/L 136-145 POTASSIUM-STAT [id number] 11:16:00 Test Item Value Reference Range Interpretation Comments POTASSIUM (BEAKER) (test code = 4.1 meq/L 3.6-5.5 379) BLOOD GAS, [id number] 11:16:00 Test Item Value Reference Range Interpretation [...] (test code = 1819) 100.0 % GLUCOSE-STAT [id number] 11:16:00 Test Item Value Reference Range Interpretation Comments GLUCOSE RANDOM (BEAKER) (test code 127 mg/dL 70-110 H = 652) HGB/HCT (H&H) - STAT [id number] 11:16:00 Test Item Value Reference Range Interpretation Comments HEMOGLOBIN (BEAKER) (test code = 9.8 g/dL 12.0-15.0 L 410) HEMATOCRIT (BEAKER) (test code = 29.0 % 36.0-45.0 L 411) COMPREHENSIVE METABOLIC [id number] 06:32:00 Test Item Value Reference Range Interpretation [...] S NOT APPLICABLE FOR DIALYSIS PATIEN TS. Sales And Marketing Engineer ID - DANO [id number] 05:51:00 Test Item Value Reference Range Interpretation Comments MAGNESIUM (BEAKER) (test code = 2.1 mg/dL 1.6-2.6 627) Sales And Marketing Engineer ID - DANO [id number] 05:50:00 Test Item Value Reference Range Interpretation Comments MAGNESIUM (BEAKER) (test code = 2.1 mg/dL 1.6-2.6 627) Sales And Marketing Engineer ID - DANO MBASIC METABOLIC [id number] 05:50:00 Test Item Value Reference Range Interpretation [...] S NOT APPLICABLE FOR DIALYSIS PATIEN TS. [id number] 05:03:00 Test Item Value Reference Range Interpretation Comments PARTIAL THROMBOPLASTIN TIME 89.6 seconds 22.5-36.0 H (BEAKER) (test code = 760) CBC W/PLT COUNT & AUTO [id number] 04:53:00 Test Item Value Reference Range Interpretation [...] = 2801) CBC W/PLT COUNT & AUTO [id number] 04:50:00 Test Item Value Reference Range Interpretation [...] PERCENT (BEAKER) (test code = 2801) SARS-COV2/RT-PCR ([facility])2019-09-13 18:53:00 Test Item Value Reference Range Interpretation Comments SARS-COV2/RT-PCR (test Not Detected Not Detected, Negative code = 1017453) SARS-COV-[address] [facility] (test code = 2936399) Negative results do not preclude SARS-CoV-2 infection [...] of the Act.Fact Sheet for Healthcare Pro viders:https://www.[employer]/Documents/Xpert%20Xpress%20SARS%20CoV-2/Fact%20Sh eets/302-3802%46IUJF-DRU-9%20HEALTHCARE%20PROVIDERS%20FACT%20SHEET.pdfFact Sheet for Healthcare Patients:https://www.[employer]/Documents/Xpert%20Xpress%20SARS%20CoV-2/Fact%20Sheets/3023801%20SARS-COV -2%20PATIENT%20FACT%20SHEET.pdfPerforming Laboratory:[address], [place] [address]WBJTBGEZOC [id number] 09:01:00 Test Item Value Reference Range Interpretation Comments HEMOGLOBIN A1C (BEAKER) (test code = 6.7 % 4.3-6.1 H 368) PLATELET AGGREGATION: FUNCTION [id number] 07:55:00 Test Item Value Reference Range Interpretation Comments [id number] Phil Mcguire M.D. ([facility]) (test code = (electonic signature) 2162) PLATELET COUNT AGG 160 K/CU MM 150-450 [...] may be falsely low with platelet counts<75,000/cu mm.Sales And Marketing Engineer ID- [id number] AGGREGATION: FUNCTION SCREEN 2019-09-13 07:53:00 Test Item Value Reference Range Interpretation Comments [id number] Phil Mcguire M.D. (BEAKER) (test code = (electonic signature) 4080) PLATELET COUNT AGG 178 K/CU MM 150-450 (BEAKER) (test code = 2656) ADP (BEAKER) (test code 55 % 62-100 L = 4654) PLATELET RICH 192 k/cu mm 200-300 L PLASMA(BEAKER) (test code = 2134) PLATELET FUNCTION SCREEN Decreased aggregation INTERPRETATION (BEAKER) with ADP which (test code = 1483) indicates platelet dysfunction that may be due to medication effect, uremia, or other platelet function disorders. Clinical correlation is required. Platelet Function Screen results may be falsely low with platelet counts<75,000/cu mm.Sales And Marketing Engineer ID- [id number] 07:33:00 Test Item Value Reference Range Interpretation Comments PARTIAL THROMBOPLASTIN TIME 85.7 seconds 22.5-36.0 H (BEAKER) (test code = 760) [id number] 06:04:00 Test Item Value Reference Range Interpretation Comments MAGNESIUM (BEAKER) (test code = 2.1 mg/dL 1.6-2.6 627) Sales And Marketing Engineer ID - DANO MBASIC METABOLIC [id number] 06:04:00 Test Item Value Reference Range Interpretation [...] S NOT APPLICABLE FOR DIALYSIS PATIEN TS. Sales And Marketing Engineer ID - DANO MLIPID [id number] 06:04:00 Test Item Value Reference Range Interpretation Comments TRIGLYCERIDES (BEAKER) (test code = 83 mg/dL 540) CHOLESTEROL (BEAKER) (test code = 143 mg/dL 631) HDL CHOLESTEROL (BEAKER) (test code 42 mg/dL = 976) LDL CHOLESTEROL CALCULATED (BEAKER) 84 mg/dL (test code = 633) Triglyceride Reference Range: Low Risk <150 Borderline 150-199 High Risk 200- 499 Very High Risk >=500Cholesterol Reference Range: Low Risk <200 Borderline 200-239 High Risk >240HDL Cholesterol Reference Range: Low Risk >=60 High Risk <40LDL Cholesterol Reference Range: Optimal <100 Near Optimal 100-129 Borderline 130-159 High 160-189 Very High >=190 Sales And Marketing Engineer ID - DANO MPROTHROMBIN TIME/[id number] 05:20:00 Test Item Value Reference Range Interpretation [...] is 2.5-3.5 for patients wiht mechanical heart valves.CBC W/PLT COUNT & AUTO [id number] 05:01:00 Test Item Value Reference Range Interpretation [...] = 2801) RAD, CHEST, 1 VIEW, NON [id number] 01:56:00Reason for exam:->pre op screenShould this be performed at the bedside?->YesFINAL REPORT History: Preoperative evaluation, surgery unspecified. Comparison:None. Findings: A single view of the chest is submitted. The cardiac silhouette is within normal limits for size. There is atherosclerotic calcification of the aorta. There is no focal consolidation, pneumothorax, large pleural effusion or evidence of overt pulmonary edema. There is no acute bony abnormality. Impression: No active cardiopulmonary abnormality. Signed: Chema Ibrahim MDReport Verified Date/Time: 09/13/2019 01:56:23 [id number] 18:35:00 Test Item Value Reference Range Interpretation Comments PARTIAL THROMBOPLASTIN TIME 81.1 seconds 22.5-36.0 H (BEAKER) (test code = 760) TROPONIN [id number] 11:43:00 Test Item Value Reference Range Interpretation [...] failure, acidosis, acute neurological disease, and persistent tachyarrhythmia.Sales And Marketing Engineer ID - CHAO [id number] 11:25:00 Test Item Value Reference Range Interpretation Comments PARTIAL THROMBOPLASTIN TIME 75.5 seconds 22.5-36.0 H (BEAKER) (test code = 760) TROPONIN [id number] 04:03:00 Test Item Value Reference Range Interpretation [...] failure, acidosis, acute neurological disease, and persistent tachyarrhythmia.Sales And Marketing Engineer ID - LAURA [id number] 03:47:00 Test Item Value Reference Range Interpretation [...]
--- NOTE | 2022-03-04 19:01 | RAD REPORT ---
EXAM DESCRIPTION: RAD - Foot Left 3 View - 03/04/2022 6:27 pm CLINICAL HISTORY: Left Foot pain FINDINGS: No fracture or dislocation is seen. The bones are osteoporotic. Soft tissue swelling. A radiopaque foreign body is not seen
[2022-03-04 19:19] LABS: Absolute Lymphocytes (CBC) 1.4 K/uL (0.7-4.9); Hematocrit 34.8 % (36.0-45.0); Lymphocytes % 16.1 % (15.3-44.8); MCV 92.5 fL (80-100); MPV 8.9 fL (7.6-11.3); RBC Red Blood Cell Count 3.76 M/uL (3.86-4.86)
[2022-03-04 20:02] LABS: Potassium 4.3 mmol/L (3.5-5.1)
--- NOTE | 2022-03-04 20:03 | ER ---
Nurse's Notes [facility] Name: Yeison Ellis Age: 81 yrs Sex: Female : 1940 Arrival Date: 03/04/2022 Time: 17:32 Bed Treatment Private MD: Diagnosis: Cellulitis of left lower limb Presentation: 03/04 17:48 Chief complaint: Patient states: she dropped a glass that shattered and a large piece kb3 of glass popped up and stabbed her in the top of her left foot approximately 1 week ago. PT removed glass shard at home, woke up this morning and top of left foot is swollen and red. Coronavirus screen: Vaccine status: Patient reports receiving the 2nd dose of the covid vaccine. Client denies travel out of the [place] in the last 14 days. Ebola Screen: Patient negative for fever greater than or equal to 101.5 degrees Fahrenheit, and additional compatible Ebola Virus Disease symptoms Patient denies exposure to infectious person. Patient denies travel to an Ebola-affected area in the 21 days before illness onset. Initial Sepsis Screen: Does the patient meet any 2 criteria? No. Patient's initial sepsis screen is negative. Does the patient have a suspected source of infection? No. Patient's initial sepsis screen is negative. Risk Assessment: Do you want to hurt yourself or someone else? Patient reports no desire to harm self or others. Onset of symptoms was March 04, 2022. 17:48 Method Of Arrival: Wheelchair kb3 17:48 Acuity: ALEXIS 4 kb3 18:26 Acuity: ALEXIS 3 hb Triage Assessment: 17:51 General: Appears in no apparent distress. Behavior is calm, cooperative. Pain: kb3 Complains of pain in dorsum of left foot Pain does not radiate. Pain currently is 8 out of 10 on a pain scale. Quality of pain is described as burning, sharp, Pain began 1 day ago. Historical: - Allergies: 17:51 Darvocet-N 100; kb3 17:51 EGG/POULTRY; kb3 17:51 Iodine; kb3 17:51 Hmmpjyc-Vlb-Ibr Reductase Inhibitor; kb3 - PMHx: 17:51 Arthritis; Back pain; Chronic pain; Hypertension; Kidney stones; Myocardial infarction; kb3 neuropathy; Rheumatoid Arthritis; - PSHx: 17:51 Stented artery; kb3 - Immunization history:: Adult Immunizations up to date, Client reports receiving the 2nd dose of the Covid vaccine, Last tetanus immunization: up to date. - Social history:: Smoking status: Patient denies any tobacco usage or history of. Screenin:08 Abuse screen: Denies threats or abuse. Denies injuries from another. Nutritional hb screening: No deficits noted. Tuberculosis screening: No symptoms or risk factors identified. Fall Risk Total Strong Fall Scale indicates Low Risk Score (25-44 pts). Fall prevention measures have been instituted. Side Rails Up X 2 Frequent Obs/Assesments occuring As available Patient and Family Educated on Fall Prevention Program and strategies. Assessment: 19:15 General: Appears in no apparent distress. uncomfortable, Behavior is calm, cooperative. hb Neuro: Level of Consciousness is awake, alert, obeys commands, Oriented to person, place, time, situation. Cardiovascular: Patient's skin is warm and dry. Respiratory: Respiratory effort is even, unlabored, Respiratory pattern is regular, symmetrical. GI: No signs and/or symptoms were reported involving the gastrointestinal system. : No signs and/or symptoms were reported regarding the genitourinary system. EENT: No signs and/or symptoms were reported regarding the EENT system. Derm: Skin is pink, warm \T\ dry. Musculoskeletal: No signs and/or symptoms reported regarding the musculoskeletal system. Vital Signs: 17:48 Weight 65.77 kg; Height 5 ft. 2 in. (157.48 cm); Pain 8/10; kb3 19:07 BP 147 / 87; Pulse 82; Resp 16; Temp 98.2; Pulse Ox 100% on R/A; Pain 3/10; hb 17:48 Body Mass Index 26.52 (65.77 kg, 157.48 cm) kb3 ED Course: 17:32 Patient arrived in ED. jl7 17:34 [facility]ally Ram[facility]-C [facility] kb 17:34 Aram López DO is Attending Physician. kb 17:51 Triage completed. kb3 17:51 Arm band placed on right wrist. kb3 18:26 Alice Case, RN is Primary Nurse. hb 18:29 Foot Left 3 View XRAY In Process Unspecified. EDMS 18:30 Patient has correct armband on for positive identification. hb 19:02 Missed attempt(s): 20 gauge in right in left antecubital area. Bleeding controlled, hb band aid applied, catheter tip intact. 19:06 First set of blood cultures drawn by me. Missed attempt(s): 20 gauge in left jl7 antecubital area. Bleeding controlled, band aid applied, catheter tip intact. Inserted saline lock: 22 gauge in right antecubital area, using aseptic technique. 19:07 Initial lab(s) drawn, by me, sent to lab. Second set of blood cultures drawn. [facility] 19:40 PHCP role handed off by Cally Ramírez FNP-C jmm 19:40 Jose Juan Chase PA is PHCP. [facility] 19:59 No provider procedures requiring assistance completed. IV discontinued, intact, hb bleeding controlled, No redness/swelling at site. Administered Medications: 20:12 Drug: HYDROcodone-acetaminophen 5 mg-325 mg 1 tabs Route: PO; hb 20:31 Follow up: Response: Medication administered at discharge. hb 20:19 Drug: KeFLEX (cephalexin) 500 mg Route: PO; hb 20:31 Follow up: Response: Medication administered at discharge. hb 20:19 Drug: Doxycycline 100 mg Route: PO; hb 20:31 Follow up: Response: Medication administered at discharge. hb Medication: 20:32 VIS not applicable for this client. hb Outcome: 20:03 Discharge ordered by . [facility] 20:20 Patient left the ED. hb 20:28 Discharged to home via wheelchair. hb 20:28 Condition: stable 20:28 Discharge instructions given to patient, family, Instructed on discharge instructions, follow up and referral plans. medication usage, Demonstrated understanding of instructions, follow-up care, medications, Prescriptions given X 2. Signatures: Dispatcher [employer] EDMS Cally Ramírez FNP-C FNP-Jose Juan Bergeron PA PA jmm Baxter, Heather RN Edith Bell RN RN jl7 Sonja Garcia, PIEDAD RN kb3 Corrections: (The following items were deleted from the chart) 17:52 17:51 Allergies: egg; kb3 kb3 17:52 17:51 Allergies: propoxyphene napsylate; kb3 kb3
--- NOTE | 2022-03-04 20:03 | EDPHYS ---
Physician Documentation [facility] Name: Yeison Ellis Age: 81 yrs Sex: Female : 1940 Arrival Date: 03/04/2022 Time: 17:32 Bed Treatment Private MD: ED Physician Aram López HPI: 03/04 18:48 This 81 yrs old Female presents to ER via Wheelchair with complaints of Puncture Wound kb To Foot. 18:49 The patient presents with cellulitis of the left foot. Description: erythematous, kb swollen, warm. Onset: The symptoms/episode began/occurred today. Possible cause(s): glass punctured top of left foot, was in her foot for a week and pt removed it yesterday. Associated signs and symptoms: Pertinent positives: erythema, swelling. Modifying factors: the symptoms are alleviated by nothing, the symptoms are aggravated by pressure, touching. Severity of symptoms: At their worst the symptoms were moderate, in the emergency department the symptoms are unchanged. The patient has not experienced similar symptoms in the past. The patient has not recently seen a physician. After removing glass from foot, pt woke up with redness and swelling this morning. denies fever. Historical: - Allergies: 17:51 Darvocet-N 100; kb3 17:51 EGG/POULTRY; kb3 17:51 Iodine; kb3 17:51 Zzleavl-Uwa-Hoz Reductase Inhibitor; kb3 - PMHx: 17:51 Arthritis; Back pain; Chronic pain; Hypertension; Kidney stones; Myocardial infarction; kb3 neuropathy; Rheumatoid Arthritis; - PSHx: 17:51 Stented artery; kb3 - Immunization history:: Adult Immunizations up to date, Client reports receiving the 2nd dose of the Covid vaccine, Last tetanus immunization: up to date. - Social history:: Smoking status: Patient denies any tobacco usage or history of. ROS: 18:47 Constitutional: Negative for fever, chills, and weight loss. kb 18:47 Skin: Positive for cellulitis, puncture, of the dorsum of left foot. 18:47 All other systems are negative. Exam: 18:47 Constitutional: This is a well developed, well nourished patient who is awake, alert, kb and in no acute distress. Head/Face: Normocephalic, atraumatic. ENT: Moist Mucous membranes Cardiovascular: Regular rate and rhythm with a normal S1 and S2. No gallops, murmurs, or rubs. No pulse deficits. Respiratory: Respirations even and unlabored. No increased work of breathing. Talking in full sentences Abdomen/GI: Soft, non-tender. No distention MS/ Extremity: Pulses equal, no cyanosis. Neurovascular intact. Full, normal range of motion. Neuro: Awake and alert, GCS 15, oriented to person, place, time, and situation. Moves all extremities. Normal gait. Psych: Awake, alert, with orientation to person, place and time. Behavior, mood, and affect are within normal limits. 18:47 Skin: cellulitis, that is moderate, on the left foot, injury, puncture(s), that are superficial, of the dorsum of left foot. Vital Signs: 17:48 Weight 65.77 kg; Height 5 ft. 2 in. (157.48 cm); Pain 8/10; kb3 19:07 BP 147 / 87; Pulse 82; Resp 16; Temp 98.2; Pulse Ox 100% on R/A; Pain 3/10; hb 17:48 Body Mass Index 26.52 (65.77 kg, 157.48 cm) kb3 MDM: 17:43 Patient medically screened. kb 18:46 Data reviewed: vital signs, nurses notes. Data interpreted: Pulse oximetry: on room air kb is 100 %. Interpretation: normal. 19:28 Counseling: I had a detailed discussion with the patient and/or guardian regarding: the kb historical points, exam findings, and any diagnostic results supporting the discharge/admit diagnosis, lab results, radiology results, the need for outpatient follow up, a family practitioner, to return to the emergency department if symptoms worsen or persist or if there are any questions or concerns that arise at home. 19:45 ED course: WBC normal, lactate normal, pt has not had fever. Will trial outpatient kb antibiotics. Discussed plan with pt and in agreement. Pt will return for worsening symptoms or if cellulitis does not improve over the next few days on antibiotics. 03/04 17:43 Order name: CBC with Diff; Complete Time: 19:20 kb 03/04 17:43 Order name: Basic Metabolic Panel; Complete Time: 20:02 kb 03/04 17:43 Order name: Foot Left 3 View XRAY; Complete Time: 19:04 kb 03/04 17:43 Order name: Blood Culture Adult (2) 03/04 17:43 Order name: Lactate w/ 2H reflex if indic.; Complete Time: 19:34 kb 03/04 17:43 Order name: IV Start; Complete Time: 19:07 kb Administered Medications: 20:12 Drug: HYDROcodone-acetaminophen 5 mg-325 mg 1 tabs Route: PO; hb 20:31 Follow up: Response: Medication administered at discharge. hb 20:19 Drug: KeFLEX (cephalexin) 500 mg Route: PO; hb 20:31 Follow up: Response: Medication administered at discharge. hb 20:19 Drug: Doxycycline 100 mg Route: PO; hb 20:31 Follow up: Response: Medication administered at discharge. Disposition: 19:15 Co-signature as Attending Physician, Aram LEMUS was immediately available on-site ms3 in the Emergency Department for consultation in the care of the patient. Disposition Summary: 03/04/22 20:03 Discharge Ordered Location: Home [facility] Condition: Stable [facility] Diagnosis - Cellulitis of left lower limb [facility] Followup: kb - With: Emergency Department - When: As needed - Reason: Worsening of condition Followup: kb - With: Private Physician - When: 2 - 3 days - Reason: Recheck today's complaints, Continuance of care, Re-evaluation by your physician Discharge Instructions: - Discharge Summary Sheet - Cellulitis, Adult, [id number] kb Forms: - Medication Reconciliation Form [facility] - Thank You Letter [facility] - Antibiotic Education [facility] - Prescription Opioid Use [facility] Prescriptions: - Cephalexin 500 mg Oral Capsule - take 1 capsule by ORAL route every 6 hours for 10 days; 40 capsule; Refills: 0, [facility] Product Selection Permitted - Doxycycline Hyclate 100 mg Oral Tablet - take 1 tablet by ORAL route every 12 hours; 20 tablet; Refills: 0, Product [facility] Selection Permitted Signatures: Dispatcher [employer] Cally Swenson FNP-C FNP-Ckb Mickail, Joel, PA PA jmm Baxter, Heather, RN RN Aram Srivastava DO DO ms3 Sonja Garcia RN RN kb3 Corrections: (The following items were deleted from the chart) 17:52 17:51 Allergies: egg; kb3 kb3 17:52 17:51 Allergies: propoxyphene napsylate; kb3 kb3
[2022-03-04] MEDS ORDERED: DOXYCYCLINE 100 MG CAP PO ONE (20:07)
[2022-03-04] MEDS ORDERED: CEPHALEXIN 250 MG CAP ONE (20:07)
[2022-03-04] MEDS ORDERED: HYDROCODONE/APAP 5/325 MG TAB ONE (20:12)
[2022-03-04 20:51] VITALS: BP 147/87; TEMP 98.2; O2SAT 100
== END 2022-03-04 20:20 | disposition home or self-care (01) ==
LOC: ER 17:27
DX: L03.116 Cellulitis of left lower limb (principal); I10 Essential (primary) hypertension; Z88.5 Allergy status to narcotic agent; Z88.8 Allergy status to other drugs, medicaments and biological substances; Z91.012 Allergy to eggs; Z91.048 Other nonmedicinal substance allergy status
CPT/HCPCS: 36415; 80048; 83605; 85025; 87040; 99284

== ENCOUNTER 2023-02-02 17:15 | Emergency (ER) | payer OTHER ==
--- OUTSIDE RECORDS SUMMARY | 2023-02-02 17:27 | XMS REPORT | Continuity of Care Document ---
:1940 Author Organization [facility] t Address [address] [place] [address] [place] [id number] Care Team Providers Name Role Phone SUYAPA AKINS Primary Care Physician Unavailable SAUL LOVE Attending Clinician Unavailable MIHIR ROPER Attending Clinician Unavailable DUNG TA Attending Clinician DAVID Hillman Attending Clinician Unavailable ROB DEVI Attending Clinician Unavailable LUIGI DIEZ Attending Clinician Unavailable 2, [facility] Attending Clinician Unavailable Rob Devi MD Attending Clinician RENETTA YE Attending Clinician Unavailable Doctor Unassigned, [place] Attending Clinician Unavailable LUBNA BERNARD Attending Clinician Unavailable JENNIFER ALICIA Attending Clinician Unavailable JENNIFER ALICIA Attending Clinician Unavailable Efrain ANTHONY, Sade Attending Clinician Pob, [facility] Main Attending Clinician Unavailable SADE ZUNIGA Attending Clinician Unavailable Candy Coelho RN Attending Clinician Unavailable Saul Love MD Attending Clinician Michael ANTHONY, Alba Kaplan Attending Clinician [phone] Courtney ANTHONY, Isatu Hernandez Attending Clinician ALBA RODRIGUEZ Attending Clinician Unavailable Ronald ANTHONY, Ngoc Attending Clinician Mihir Thurman MD Attending Clinician Francisca Thomas RN Attending Clinician Unavailable SAUL LOVE Admitting Clinician Unavailable MIHIR ROPER Admitting Clinician Unavailable DUNG TA Admitting Clinician DAVID Hillman Admitting Clinician Unavailable JENNIFER ALICIA Admitting Clinician Unavailable ROB DEVI Admitting Clinician Unavailable Payers Payer Name Policy Type Policy Number Effective Date Expiration Date S andreina MEDICARE A B [id number] 2005 00:00:00 [place]ID [place] [id number] 2021 00:00:00 [place] [id number] 2022 00:00:00 ZZCDCREVIEW [id number] 2018 2018 00:00:00 00:00:00 Problems Condition Condition Condition Status Onset Resolution Last Treating Co mments Source Name Details Category Date Date Treatment Clinician Date PAD PAD Disease Recurre [facility]ip[facility]ra (periphera nce 2-25 [facility] artery l artery 00:00: Medica l disease) disease) 00 Center CHF CHF Disease Recurre 2020-[address] [facility] (congestiv (congestiv nce 09-14 [facility] e heart e heart 00:00: Medical failure) failure) 00 Center Coronary Coronary Disease Recurre [facility] artery artery nce 09-14 k[facility] disease disease 00:00: Medical 00 Center Chronic Chronic Disease Recurre [facility] back pain back pain nce 09-14 [facility] 00:[facility]: Medical 00 [place] Arthritis Arthritis Disease [facility] Medical 00 [place] NSTEMI NSTEMI Disease Recurre [facility] (non-ST (non-ST nce 09-11 [facility] elevated elevated 00:00: Medica l myocardial myocardial 00 Ce nter infarction infarction ) ) No known No known Disease Unive rs active active ity of problems problems [facility] Hypovolemi Hypovolemi Disease Recurre [facility] c shock c shock mde [facility] Vasogenic Vasogenic Disease Recurre [facility] shock shock [facility] S/P ACB x2 S/P ACB x2 Disease Active C [facility] EMANUEL TO EMANUEL TO [facility] LAD and LAD and Medical SAPHENOUS SAPHENOUS Cent er VEIN TO OM VEIN TO OM Dr. Dr. Judson Roper 09/14/2019 09/14/2019 Acute Acute Disease Active [facility] blood loss blood loss [facility] anemia anemia [place] Acute Acute Disease Active [facility] respirator respirator [facility] y Medical insufficie insufficie Ce nter ncy ncy Metabolic Metabolic Disease Active [facility] acidosis acidosis [facility] Allergies, Adverse Reactions, Alerts Allergy Allergy Status Severity Reaction(s) Onset Inactive Treating Comm ents Source Name Type Date Date Clinician PROPOXYP DRUG Active N/V 2021-04 Univers HENE 2-23 ity of N-ACETAM 00:00: [place] [address] Propoxyp Drug Active Nausea 2021-04 Univers hene Intolera and/or 2-23 ity of N-Acetam nce Vomiting 00:00: [place] inophen [address] [place] [address] Cauliflo Propensi Active Nausea And [facility] ty to Vomiting 09-11 [facility] adverse 00:00: Medical reaction 00 [place] s Propoxyp Propensi Active Nausea And [facility] hene ty to Vomiting 6-06 [facility] N-Acetam adverse 00:00: Medical inophen reaction 00 Center s Iodine Propensi Active Rash [facility] And ty to 6- [facility] Iodide adverse 00:00: Medical Containi reaction 00 Center ng s Products Statins- Propensi Active Nausea And [facility] Hmg-Coa ty to Vomiting 09-11 [facility] Reductas adverse 00:00: Medical e reaction 00 Center Inhibito s rs CAULIFLO Allergy Active N\\T\\V [facility] WER 6- [facility] 00:00: Medical 00 Center Statins- Propensi Active Nausea And [facility] Hmg-Coa ty to Vomiting 09-11 [facility] Reduct[place] adverse 00:00: Medical e reaction 00 Center Inhibito s rs PROPOXYP Allergy Active N\\T\\V [facility] HENE 6- [facility] N-ACETAM 00:00: Medical INOPHEN 00 Center EGG Allergy Active N\\T\\V [address] [facility]- [facility] 00:00: Medical 00 Center STATINS- Allergy Active N\\T\\V [facility] HMG-COA 6 [facility] REDUCTAS 00:00: Medical E 00 Center INHIBITO RS IODINE Allergy Active Low Rash [facility] AND 6 [facility] IODIDE 00:00: Medical CONTAINI 00 Center NG PRODUCTS Egg Drug Active Nausea And 2016-[address] Allergy Vomiting 05-09 by [facility] 00:00: itself. Medical 00 NOT Center allergic to egg products or items cooked with eggs Other reaction( s): Nausea/Vo miting EGG Allergy Active Low N\\T\\V 2016-[address] [facility] 2- [facility] 00:00: Medical 00 Center NO KNOWN Drug Active Univers ALLERGIE Class ity of S [facility] Branch Family History Family Member Diagnosis Comments Start Date Stop Date Source Natural father Heart disease [facility] Natural mother Heart disease [facility] Social History Social Habit Start Date Stop Date Quantity Comments Source History of tobacco Cigarette Smoker University of use [facility] Gender identity Universit y [facility] Branch Sexual orientation Univer [facility] Medical Branch History SDOH [facility] Alcohol Comment Medical C enter History SDOH [facility] Alcohol Std Drinks Medica l Center History SDOH [facility] Alcohol Binge Medical [address] ter History of Social 2022-11-06 2022-11-06 Univers ity of function 00:00:00 00:00:00 [facility] Exposure to 2022-09-03 2022-09-13 Not sure University SARS-CoV-2 (event) 00:00:00 09:17:00 [facility] Alcohol intake 2021-06-14 2021-06-[address] Irish es 00:00:00 00:00:00 non-drinker of Medical Ce nter alcohol (finding) Tobacco use and 2019-09-12 2019-09-[address] [facility] exposure 00:00:00 00:00:00 Medical Center History SDOH 2019-09-12 2019-09-[address] [facility] Alcohol Frequency 00:00:00 00:00:[address] [facility] Sex Assigned At [address] [facility] 00:00:00 00:00:00 Medical Center Smoking Status Start Date Stop Date Source Ex-smoker 2022-05-11 00:00:00 2022-05-11 [facility] [place] 00:00:00 [facility] Tobacco smoking [place] consumption unknown Medical Bran ch Never smoker [facility] Center Medications Ordered Filled Start Stop Current Ordering Indication Dosage Frequency Signature Comments Components Source Medication Medication Date Date Medication? Clinician (SIG) Name Name aspirin 81 2022-04 Yes 81mg Take 1 Unive rs mg EC 0-12 tablet by ity of tablet 16:27: mouth in [place] [address] the Medical morning. Branch aspirin 81 2022-04 Yes 81mg Take 1 Unive rs mg EC 0-12 tablet by ity of tablet 16:27: mouth in [place] [address] the Medical morning. Branch aspirin 81 2022-04 Yes 81mg Take 1 Unive rs mg EC 0-12 tablet by ity of tablet 16:27: mouth in [place] [address] the Medical morning. Branch bumetanide 2022-04 No 2mg Take 1 Univ ers 2 mg tablet 0-12 10-12 tablet by it y of 16:26: 00:00 mouth [place] 53 :00 every Medical morning. Branch bumetanide 2022-04 No 2mg Take 1 Univ ers 2 mg tablet 0-12 10-12 tablet by it y of 16:26: 00:00 mouth [place] 53 :00 every Medical morning. Branch losartan 25 2022-04 Yes [id number] 25mg Take 1 Univers mg tablet 0-12 tablet by ity o f 00:00: mouth in [place] 00 the Medical morning. Branch atorvastati 2022-04 Yes [id number] 20mg Take 1 Univers n 20 mg 0-12 tablet by ity of tablet 00:00: mouth at [place] 00 bedtime. Medical Branch bumetanide 2022-04 Yes 2mg Take 1 Unive rs 2 mg tablet 0-12 tablet by ity of 00:00: mouth [place] 00 every 2 Medical (two) Branch days. losartan 25 2022-04 Yes [id number] 25mg Take 1 Univers mg tablet 0-12 tablet by ity o f 00:00: mouth in [place] 00 the Medical morning. Branch atorvastati 2022-04 Yes [id number] 20mg Take 1 Univers n 20 mg 0-12 tablet by ity of tablet 00:00: mouth at [place] 00 bedtime. Medical Branch bumetanide 2022-04 Yes 2mg Take 1 Unive rs 2 mg tablet 0-12 tablet by ity of 00:00: mouth [place] 00 every 2 Medical (two) Branch days. losartan 25 2022-04 Yes [id number] 25mg Take 1 Univers mg tablet 0-12 tablet by ity o f 00:00: mouth in [place] 00 the Medical morning. Branch atorvastati 2022-04 Yes [id number] 20mg Take 1 Univers n 20 mg 0-12 tablet by ity of tablet 00:00: mouth at [place] 00 bedtime. Medical Branch bumetanide 2022-04 Yes 2mg Take 1 Unive rs 2 mg tablet 0-12 tablet by ity of 00:00: mouth [place] 00 every 2 Medical (two) Branch days. isosorbide 2022- No 60mg Take 60 mg Univers mononitrate 8-18 08-18 by mouth ity of 60 mg 24 hr 17:13: 00:00 in the [place] as tablet 41 :00 morning. Medical Branch isosorbide 2022- No 60mg Take 60 mg Univers mononitrate 8-18 08-18 by mouth ity of 60 mg 24 hr 17:13: 00:00 in the [place] as tablet 41 :00 morning. Medical Branch isosorbide 2022- No 60mg Take 60 mg Univers mononitrate 8-18 08-18 by mouth ity of 60 mg 24 hr 17:13: 00:00 in the [facility] as tablet 41 :00 morning. Medical Branch aspirin 81 3-0 2023- No 81mg Take 81 mg Univers mg EC 8-18 08-18 by mouth ity of tablet 17:11: 00:00 in the [place] 33 :00 morning. Medical Branch aspirin 81 3-0 2023- No 81mg Take 81 mg Univers mg EC 8-18 08-18 by mouth ity of tablet 17:11: 00:00 in the [place] 33 :00 morning. Medical Branch aspirin 81 3-0 2023- No 81mg Take 81 mg Univers mg EC 8-18 08-18 by mouth ity of tablet 17:11: 00:00 in the [place] 33 :00 morning. Medical Branch isosorbide 2022-0 Yes [id number] 30mg Take 0.5 Univers mononitrate 8-18 tablets by it y of 60 mg 24 hr 00:00: mouth [place] tablet 00 the Medical morning. Branch isosorbide 2022-0 Yes [id number] 30mg Take 0.5 Univers mononitrate 8-18 tablets by it y of 60 mg 24 hr 00:00: mouth [place] tablet 00 the Medical morning. Branch isosorbide 2022-0 Yes [id number] 30mg Take 0.5 Univers mononitrate 8-18 tablets by it y of 60 mg 24 hr 00:00: mouth in [place] tablet 00 the Medical morning. Branch pentoxifyll 2022-0 Yes [id number] 400mg Take 1 Univers ine 400 mg 8-18 tablet by ity of SR tablet 00:00: mouth in [facility] 00 the Medical morning Branch and 1 tablet at noon and 1 tablet in the evening. atorvastati 3-0 Yes [id number] 10mg Take 0.5 Univers n 20 mg 8-18 tablets by ity of tablet 00:00: mouth at [place] [address] bedtime. Medical Branch losartan 25 3-0 Yes [id number] 25mg Take 1 Univers mg tablet 8-18 tablet by ity o f 00:00: mouth in [place] 00 the Medical morning Branch and 1 tablet in the evening. isosorbide 3-0 Yes [id number] 30mg Take 0.5 Univers mononitrate 8-18 tablets by it y of 60 mg 24 hr 00:00: mouth [place] tablet 00 the Medical morning. Branch pentoxifyll 2022-0 Yes [id number] 400mg Take 1 Univers ine 400 mg 8-18 tablet by ity of SR tablet 00:00: [place] 00 the Medical morning Branch and 1 tablet at noon and 1 tablet in the evening. atorvastati 3-0 Yes [id number] 10mg Take 0.5 Univers n 20 mg 8-18 tablets by ity of tablet 00:00: mouth at [place] 00 bedtime. Medical Branch losartan 25 2022-0 Yes [id number] 25mg Take 1 Univers mg tablet 8-18 tablet by ity o f 00:00: mouth in [place] 00 the Medical morning Branch and 1 tablet in the evening. isosorbide 3-0 Yes [id number] 30mg Take 0.5 Univers mononitrate 8-18 tablets by it y of 60 mg 24 hr 00:00: mouth in [place] tablet 00 the Medical morning. Branch pentoxifyll 2022-0 Yes [id number] 400mg Take 1 Univers ine 400 mg 8-18 tablet by ity of SR tablet 00:00: [place] 00 the Medical morning Branch and 1 tablet at noon and 1 tablet in the evening. atorvastati 2022-0 Yes [id number] 10mg Take 0.5 Univers n 20 mg 8-18 tablets by ity of tablet 00:00: mouth at [place] 00 bedtime. Medical Branch losartan 25 2022-0 Yes [id number] 25mg Take 1 Univers mg tablet 8-18 tablet by ity o f 00:00: mouth in [place] 00 the Medical morning Branch and 1 tablet in the evening. isosorbide 3-0 Yes [id number] 30mg Take 0.5 Univers mononitrate 8-18 tablets by it y of 60 mg 24 hr 00:00: mouth [place] tablet 00 the Medical morning. Branch pentoxifyll 3-0 2022- No [id number] 400mg Take 1 Univers ine 400 mg 8-18 10-12 tablet by ity of SR tablet 00:00: 00:00 mouth in [place] 00 :00 the Medical morning Branch and 1 tablet at noon and 1 tablet in the evening. atorvastati 2022-2022- No [id number] 10mg Take 0.5 Univers n 20 mg 8-18 10-12 tablets by ity o f tablet 00:00: 00:00 mouth at [place] 00 :00 bedtime. Medical Branch losartan 25 3-0 2022- No [id number] 25mg Take 1 Univers mg tablet 8-18 10-12 tablet by ity of 00:00: 00:00 mouth in [place] 00 :00 the Medical morning Branch and 1 tablet in the evening. pentoxifyll 2022- No [id number] 400mg Take 1 Univers ine 400 mg 8-18 10-12 tablet by ity of SR tablet 00:00: 00:00 mouth in [place] 00 :00 the Medical morning Branch and 1 tablet at noon and 1 tablet in the evening. atorvastati 2022-2022- No [id number] 10mg Take 0.5 Univers n 20 mg 8-18 10-12 tablets by ity o f tablet 00:00: 00:00 mouth at [place] 00 :00 bedtime. Medical Branch losartan 25 2022-0 2022- No [id number] 25mg Take 1 Univers mg tablet 8-18 10-12 tablet by ity of 00:00: 00:00 mouth in [place] 00 :00 the Medical morning Branch and 1 tablet in the evening. famotidine 2022-2022- No 20mg Take 20 mg Univers 20 mg 11-06 by mouth ity of tablet 11:33: 00:00 in the [place] 27 :00 morning Medical and 20 mg Branch in the evening. famotidine 2022-2022- No 20mg Take 20 mg Univers 20 mg 11-06 by mouth ity of tablet 11:33: 00:00 in the [place] 27 :00 morning Medical and 20 mg Branch in the evening. omega-3s/dh 2022- No 1{tbl} Take 1 U nivers a/epa/fish 11-06 tablet by ity of oil/D3 11:33: 00:00 mouth [place] (VITAMIN-D 21 :00 daily. Medical + OMEGA-3 Branch ORAL) omega-3s/dh 2022-2022- No 1{tbl} Take 1 U nivers a/epa/fish 11-06 tablet by ity of oil/D3 11:33: 00:00 mouth [place] (VITAMIN-D 21 :00 daily. Medical + OMEGA-3 Branch ORAL) pentoxifyll 2022- No 400mg Take 400 Univers ine 400 mg 11-06 mg by ity of SR tablet 11:33: 00:00 mouth in [place] 18 :00 the Medical morning Branch and 400 mg in the evening. pentoxifyll 2022- No 400mg Take 400 Univers ine 400 mg 11-06 mg by ity of SR tablet 11:33: 00:00 mouth in [place] 18 :00 the Medical morning Branch and 400 mg in the evening. bumetanide 2022- No Take by Uni vers (BUMEX 11-06 mouth. 2 ity of ORAL) 11:33: 00:00 mg AM and [place] 15 :00 1 mg Medical Qafternoon Branch bumetanide 2022- No Take by Uni vers (BUMEX 11-06 mouth. 2 ity of ORAL) 11:33: 00:00 mg AM and [place] 15 :00 1 mg Medical Qafternoon Branch bumetanide 2022-0 Yes 2mg Take 1 Unive rs 2 mg tablet - tablet by ity of 11:33: mouth [place] 14 every Medical morning. Branch bumetanide 2022-0 Yes 2mg Take 1 Unive rs 2 mg tablet 8- tablet by ity of 11:33: mouth [place] 14 every Medical morning. Branch bumetanide 2022-0 Yes 2mg Take 1 Unive rs 2 mg tablet 8- tablet by ity of 11:33: mouth [place] 14 every Medical morning. Branch bumetanide 2022-0 Yes 2mg Take 1 Unive rs 2 mg tablet 8- tablet by ity of 11:33: mouth [place] 14 every Medical morning. Branch bumetanide 2022-0 Yes 2mg Take 1 Unive rs 2 mg tablet 8- tablet by ity of 11:33: mouth [place] 14 every Medical morning. Branch bumetanide 2022-0 Yes 2mg Take 1 Unive rs 2 mg tablet 8- tablet by ity of 11:33: mouth [place] 14 every Medical morning. Branch bumetanide 2023-0 Yes 2mg Take 1 Unive rs 2 mg tablet 8-01 tablet by ity of 11:33: mouth [place] 14 every Medical morning. Branch bumetanide 3-0 Yes 2mg Take 1 Unive rs 2 mg tablet 8-01 tablet by ity of 11:33: mouth [place] 14 every Medical morning. Branch bumetanide 3-0 Yes 2mg Take 1 Unive rs 2 mg tablet 8-01 tablet by ity of 11:33: mouth [place] 14 every Medical morning. Branch bumetanide 3-0 Yes 2mg Take 1 Unive rs 2 mg tablet 8-01 tablet by ity of 11:33: mouth [place] 14 every Medical morning. Branch bumetanide 3-0 Yes 2mg Take 1 Unive rs 2 mg tablet 8-01 tablet by ity of 11:33: mouth [place] 14 every Medical morning. Branch bumetanide 3-0 Yes 2mg Take 1 Unive rs 2 mg tablet 8-01 tablet by ity of 11:33: mouth [place] 14 every Medical morning. Branch bumetanide 2022-0 Yes 2mg Take 1 Unive rs 2 mg tablet 8-01 tablet by ity of 11:33: mouth [place] 14 every Medical morning. Branch bumetanide 2022-0 Yes 2mg Take 1 Unive rs 2 mg tablet 8-01 tablet by ity of 11:33: mouth [place] 14 every Medical morning. Branch aspirin 81 2022-0 Yes 81mg Take 81 mg U nivers mg EC 8-01 by mouth ity of tablet 11:27: in the [place] 21 morning. Medical Branch aspirin 81 3-0 Yes 81mg Take 81 mg U nivers mg EC 8-01 by mouth ity of tablet 11:27: in the [place] 21 morning. Medical Branch aspirin 81 2023-0 Yes 81mg Take 81 mg U nivers mg EC 8-01 by mouth ity of tablet 11:27: in the [place] 21 morning. Medical Branch aspirin 81 3-0 Yes 81mg Take 81 mg U nivers mg EC 8-01 by mouth ity of tablet 11:27: in the [place] 21 morning. Medical Branch aspirin 81 3-0 Yes 81mg Take 81 mg U nivers mg EC 8-01 by mouth ity of tablet 11:27: in the [place] 21 morning. Medical Branch aspirin 81 3-0 Yes 81mg Take 81 mg U nivers mg EC 8-01 by mouth ity of tablet 11:27: in the [place] morning. Medical Branch aspirin 81 3-0 Yes 81mg Take 81 mg U nivers mg EC 8-01 by mouth ity of tablet 11:27: in the [place] morning. Medical Branch aspirin 81 3-0 Yes 81mg Take 81 mg U nivers mg EC 8-01 by mouth ity of tablet 11:27: in the [place] morning. Medical Branch isosorbide 3-0 Yes 60mg Take 60 mg U nivers mononitrate 8-01 by mouth ity of 60 mg 24 hr 11:26: in [place] tablet morning. Medical Branch isosorbide 3-0 Yes 60mg Take 60 mg U nivers mononitrate 8-01 by mouth ity of 60 mg 24 hr 11:26: in [place] tablet morning. Medical Branch isosorbide 3-0 Yes 60mg Take 60 mg U nivers mononitrate 8-01 by mouth ity of 60 mg 24 hr 11:26: in [place] tablet morning. Medical Branch isosorbide 3-0 Yes 60mg Take 60 mg U nivers mononitrate 8-01 by mouth ity of 60 mg 24 hr 11:26: [place] tablet morning. Medical Branch isosorbide 3-0 Yes 60mg Take 60 mg U nivers mononitrate 8-01 by mouth ity of 60 mg 24 hr 11:26: [place] tablet morning. Medical Branch isosorbide 2023-0 Yes 60mg Take 60 mg U nivers mononitrate 8-01 by mouth ity of 60 mg 24 hr 11:26: [place] tablet morning. Medical Branch isosorbide 2023-0 Yes 60mg Take 60 mg U nivers mononitrate 8-01 by mouth ity of 60 mg 24 hr 11:26: [place] tablet morning. Medical Branch isosorbide 2023-0 Yes 60mg Take 60 mg U nivers mononitrate 8-01 by mouth ity of 60 mg 24 hr 11:26: in [place] tablet morning. Medical Branch clopidogreL 3-0 Yes 75mg Take 1 Univ ers (PLAVIX) 75 6-14 tablet by ity of mg tablet 00:00: [place] 00 the Medical morning. Branch clopidogreL 2023-0 Yes 75mg Take 1 Univ ers (PLAVIX) 75 6-14 tablet by ity of mg tablet 00:00: mouth [place] the Medical morning. Branch clopidogreL 2023-0 Yes 75mg Take 1 Univ ers (PLAVIX) 75 6-14 tablet by ity of mg tablet 00:00: mouth [place] the Medical morning. Branch clopidogreL 2023-0 Yes 75mg Take 1 Univ ers (PLAVIX) 75 6-14 tablet by ity of mg tablet 00:00: mouth [place] 00 the Medical morning. Branch clopidogreL 2023-0 Yes 75mg Take 1 Univ ers (PLAVIX) 75 6-14 tablet by ity of mg tablet 00:00: mouth [place] the Medical morning. Branch clopidogreL 2023-0 Yes 75mg Take 1 Univ ers (PLAVIX) 75 6-14 tablet by ity of mg tablet 00:00: mouth [place] the Medical morning. Branch clopidogreL 2023-0 Yes 75mg Take 1 Univ ers (PLAVIX) 75 6-14 tablet by ity of mg tablet 00:00: mouth [place] the Medical morning. Branch clopidogreL 2023-0 Yes 75mg Take 1 Univ ers (PLAVIX) 75 6-14 tablet by ity of mg tablet 00:00: mouth [place] the Medical morning. Branch clopidogreL 2023-0 Yes 75mg Take 1 Univ ers (PLAVIX) 75 6-14 tablet by ity of mg tablet 00:00: mouth [place] the Medical morning. Branch clopidogreL 2023-0 Yes 75mg Take 1 Univ ers (PLAVIX) 75 6-14 tablet by ity of mg tablet 00:00: mouth [place] 00 the Medical morning. Branch clopidogreL 2023-0 Yes 75mg Take 1 Univ ers (PLAVIX) 75 6-14 tablet by ity of mg tablet 00:00: mouth [place] 00 the Medical morning. Branch clopidogreL 2023-0 Yes 75mg Take 1 Univ ers (PLAVIX) 75 6-14 tablet by ity of mg tablet 00:00: mouth [place] 00 the Medical morning. Branch clopidogreL 2023-0 Yes 75mg Take 1 Univ ers (PLAVIX) 75 6-14 tablet by ity of mg tablet 00:00: mouth [place] 00 the Medical morning. Branch clopidogreL 2023-0 Yes 75mg Take 1 Univ ers (PLAVIX) 75 6-14 tablet by ity of mg tablet 00:00: mouth [place] 00 the Medical morning. Branch clopidogreL 2023-0 Yes 75mg Take 1 Univ ers (PLAVIX) 75 6-14 tablet by ity of mg tablet 00:00: mouth [place] 00 the Medical morning. Branch clopidogreL 2023-0 Yes 75mg Take 1 Univ ers (PLAVIX) 75 6-14 tablet by ity of mg tablet 00:00: mouth [place] 00 the Medical morning. Branch clopidogreL 2023-0 Yes 75mg Take 1 Univ ers (PLAVIX) 75 6-14 tablet by ity of mg tablet 00:00: mouth [place] 00 the Medical morning. Branch clopidogreL 2023-0 Yes 75mg Take 1 Univ ers (PLAVIX) 75 6-14 tablet by ity of mg tablet 00:00: mouth [place] 00 the Medical morning. Branch clopidogreL 2023-0 Yes 75mg Take 1 Univ ers (PLAVIX) 75 6-14 tablet by ity of mg tablet 00:00: mouth [place] 00 the Medical morning. Branch clopidogreL 2023-0 Yes 75mg Take 1 Univ ers (PLAVIX) 75 6-14 tablet by ity of mg tablet 00:00: mouth [place] 00 the Medical morning. Branch bumetanide 2022-0 Yes Take by Univ ers (BUMEX 6-09 mouth. 2 ity of ORAL) 14:58: mg AM and [place] 02 1 mg Medical Qafternoon Branch bumetanide 2022-0 Yes Take by Univ ers (BUMEX 6-09 mouth. 2 ity of ORAL) 14:58: mg AM and [place] 02 1 mg Medical Qafternoon Branch bumetanide 2022-0 Yes Take by Univ ers (BUMEX 6-09 mouth. 2 ity of ORAL) 14:58: mg AM and [place] 02 1 mg Medical Qafternoon Branch bumetanide 2022-0 Yes Take by Univ ers (BUMEX 6-09 mouth. 2 ity of ORAL) 14:58: mg AM and [place] 02 1 mg Medical Qafternoon Branch bumetanide 2023-0 Yes Take by [facility] [place] [facility] ers (BUMEX 6-09 mouth. 2 ity of ORAL) 14:58: mg AM and [place] 02 1 mg Medical [facility] Branch pentoxifyll 2023-0 Yes 400mg Take 400 U nivers ine 400 mg 6-09 mg by ity of SR tablet 11:55: mouth in [place] [address] the Medical morning Branch and 400 mg in the evening. pentoxifyll 2023-0 Yes 400mg Take 400 U nivers ine 400 mg 6-09 mg by ity of SR tablet 11:55: mouth in [place] [address] the Medical morning Branch and 400 mg in the evening. pentoxifyll 2023-0 Yes 400mg Take 400 U nivers ine 400 mg 6-09 mg by ity of SR tablet 11:55: mouth in [place] [address] the Medical morning Branch and 400 mg in the evening. pentoxifyll 2023-0 Yes 400mg Take 400 U nivers ine 400 mg 6-09 mg by ity of SR tablet 11:55: mouth in [place] [address] the Medical morning Branch and 400 mg in the evening. pentoxifyll 2023-0 Yes 400mg Take 400 U nivers ine 400 mg 6-09 mg by ity of SR tablet 11:55: mouth in [place] [address] the Medical morning Branch and 400 mg in the evening. pentoxifyll 2023-0 Yes 400mg Take 400 U nivers ine 400 mg 6-09 mg by ity of SR tablet 11:55: mouth in [place] [address] the Medical morning Branch and 400 mg in the evening. pentoxifyll 2023-0 Yes 400mg Take 400 U nivers ine 400 mg 6-09 mg by ity of SR tablet 11:55: mouth in [place] [address] the Medical morning Branch and 400 mg in the evening. pentoxifyll 2023-0 Yes 400mg Take 400 U nivers ine 400 mg 6-09 mg by ity of SR tablet 11:55: mouth in [place] [address] the Medical morning Branch and 400 mg in the evening. pentoxifyll 2023-0 Yes 400mg Take 400 U nivers ine 400 mg 6-09 mg by ity of SR tablet 11:55: mouth in [place] [id number] the Medical morning Branch and 400 mg in the evening. pentoxifyll 2023-0 Yes 400mg Take 400 U nivers ine 400 mg 6-09 mg by ity of SR tablet 11:55: mouth in [place] 35 the Medical morning Branch and 400 mg in the evening. pentoxifyll 2023-0 Yes 400mg Take 400 U nivers ine 400 mg 6-09 mg by ity of SR tablet 11:55: mouth [place] 35 the Medical morning Branch and 400 mg in the evening. pentoxifyll 2023-0 Yes 400mg Take 400 U nivers ine 400 mg 6-09 mg by ity of SR tablet 11:55: mouth [place] 35 the Medical morning Branch and 400 mg in the evening. isosorbide 2023-0 Yes 60mg Take 60 mg U nivers mononitrate 6-09 by mouth ity of 60 mg 24 hr 11:55: [place] morning. [facility] Branch isosorbide 2023-0 Yes 60mg Take 60 mg U nivers mononitrate 6-09 by mouth ity of 60 mg 24 hr 11:55: [place] morning. [facility] Branch isosorbide 2023-0 Yes 60mg Take 60 mg U nivers mononitrate 6-09 by mouth ity of 60 mg 24 hr 11:55: [place] morning. [facility] isosorbide 2023-0 Yes 60mg Take 60 mg U nivers mononitrate 6-09 by mouth ity of 60 mg 24 hr 11:55: [place] morning. [facility] Branch isosorbide 2023-0 Yes 60mg Take 60 mg U nivers mononitrate 6-09 by mouth ity of 60 mg 24 hr 11:55: [place] morning. [facility] Branch isosorbide 2023-0 Yes 60mg Take 60 mg U nivers mononitrate 6-09 by mouth ity of 60 mg 24 hr 11:55: [place] morning. [facility] Branch isosorbide 2023-0 Yes 60mg Take 60 mg U nivers mononitrate 6-09 by mouth ity of 60 mg 24 hr 11:55: [place] morning. [facility] Branch isosorbide 2023-0 Yes 60mg Take 60 mg U nivers mononitrate 6-09 by mouth ity of 60 mg 24 hr 11:55: [place] morning. [facility] Branch isosorbide 2023-0 Yes 60mg Take 60 mg U nivers mononitrate 6-09 by mouth ity of 60 mg 24 hr 11:55: [place] morning. [facility] Branch isosorbide 2023-0 Yes 60mg Take 60 mg U nivers mononitrate 6-09 by mouth ity of 60 mg 24 hr 11:55: [place] morning. [facility] isosorbide 2023-0 Yes 60mg Take 60 mg U nivers mononitrate 6-09 by mouth ity of 60 mg 24 hr 11:55: [place] morning. [facility] isosorbide 2023-0 Yes 60mg Take 60 mg U nivers mononitrate 6-09 by mouth ity of 60 mg 24 hr 11:55: [place] tablet [place] morning. [facility] aspirin 81 2023-0 Yes 81mg Take 81 mg U nivers mg EC 6-09 by mouth ity of tablet 11:55: in the [place] 30 morning. Medical Branch aspirin 81 2023-0 Yes 81mg Take 81 mg U nivers mg EC 6-09 by mouth ity of tablet 11:55: in the [place] 30 morning. Medical Branch aspirin 81 2023-0 Yes 81mg Take 81 mg U nivers mg EC 6-09 by mouth ity of tablet 11:55: in the [place] 30 morning. Medical Branch aspirin 81 2023-0 Yes 81mg Take 81 mg U nivers mg EC 6-09 by mouth ity of tablet 11:55: in the [place] 30 morning. Medical Branch aspirin 81 2023-0 Yes 81mg Take 81 mg U nivers mg EC 6-09 by mouth ity of tablet 11:55: in the [place] 30 morning. Medical Branch aspirin 81 2023-0 Yes 81mg Take 81 mg U nivers mg EC 6-09 by mouth ity of tablet 11:55: in the [place] 30 morning. Medical Branch aspirin 81 2023-0 Yes 81mg Take 81 mg U nivers mg EC 6-09 by mouth ity of tablet 11:55: in the [place] 30 morning. Medical Branch aspirin 81 2023-0 Yes 81mg Take 81 mg U nivers mg EC 6-09 by mouth ity of tablet 11:55: in the [place] 30 morning. Medical Branch aspirin 81 2023-0 Yes 81mg Take 81 mg U nivers mg EC 6-09 by mouth ity of tablet 11:55: in the [place] 30 morning. Medical Branch aspirin 81 2023-0 Yes 81mg Take 81 mg U nivers mg EC 6-09 by mouth ity of tablet 11:55: in the [place] 30 morning. Medical Branch aspirin 81 2023-0 Yes 81mg Take 81 mg U nivers mg EC 6-09 by mouth ity of tablet 11:55: in the [place] 30 morning. Medical Branch aspirin 81 2023-0 Yes 81mg Take 81 mg U nivers mg EC 6-09 by mouth ity of tablet 11:55: in the [place] 30 morning. Medical Branch amiodarone 2023-0 2023- No 200mg Take 200 U nivers 200 mg 4-25 04-25 mg by ity of tablet 14:40: 00:00 mouth in [place] 28 :00 the Medical morning. Branch amiodarone 2023-0 2023- No 200mg Take 200 U nivers 200 mg 4-25 04-25 mg by ity of tablet 14:40: 00:00 mouth in [place] 28 :00 the Medical morning. Branch amiodarone 2023-0 2023- No 200mg Take 200 U nivers 200 mg 4-25 04-25 mg by ity of tablet 14:40: 00:00 mouth in [place] 28 :00 the Medical morning. Branch isosorbide 2023-0 Yes 60mg Take 60 mg U nivers mononitrate 4-25 by mouth ity of 60 mg 24 hr 14:27: [place] morning. [facility] Branch isosorbide 2023-0 Yes 60mg Take 60 mg U nivers mononitrate 4-25 by mouth ity of 60 mg 24 hr 14:27: [place] morning. [facility] Branch isosorbide 2023-0 Yes 60mg Take 60 mg U nivers mononitrate 4-25 by mouth ity of 60 mg 24 hr 14:27: [place] morning. [facility] Branch isosorbide 2023-0 Yes 60mg Take 60 mg U nivers mononitrate 4-25 by mouth ity of 60 mg 24 hr 14:27: [place] morning. [facility] Branch isosorbide 2023-0 Yes 60mg Take 60 mg U nivers mononitrate 4-25 by mouth ity of 60 mg 24 hr 14:27: [place] morning. [facility] Branch isosorbide 2023-0 Yes 60mg Take 60 mg U nivers mononitrate 4-25 by mouth ity of 60 mg 24 hr 14:27: [place] morning. [facility] Branch isosorbide 2023-0 Yes 60mg Take 60 mg U nivers mononitrate 4-25 by mouth ity of 60 mg 24 hr 14:27: [place] morning. Medical Branch isosorbide 2023-0 Yes 60mg Take 60 mg U nivers mononitrate 4-25 by mouth ity of 60 mg 24 hr 14:27: [place] morning. [facility] Branch isosorbide 2023-0 Yes 60mg Take 60 mg U nivers mononitrate 4-25 by mouth ity of 60 mg 24 hr 14:27: [place] morning. [facility] Branch isosorbide 2023-0 Yes 60mg Take 60 mg U nivers mononitrate 4-25 by mouth ity of 60 mg 24 hr 14:27: [place] tablet [place] morning. Medical Branch aspirin 81 3-0 Yes 81mg Take 81 mg U nivers mg EC 4-25 by mouth ity of tablet 14:27: in the [place] 39 morning. Medical Branch aspirin 81 2023-0 Yes 81mg Take 81 mg U nivers mg EC 4-25 by mouth ity of tablet 14:27: in the [place] 39 morning. Medical Branch aspirin 81 2023-0 Yes 81mg Take 81 mg U nivers mg EC 4-25 by mouth ity of tablet 14:27: in the [place] 39 morning. Medical Branch aspirin 81 2023-0 Yes 81mg Take 81 mg U nivers mg EC 4-25 by mouth ity of tablet 14:27: in the [place] 39 morning. Medical Branch aspirin 81 2023-0 Yes 81mg Take 81 mg U nivers mg EC 4-25 by mouth ity of tablet 14:27: in the [place] 39 morning. Medical Branch aspirin 81 2023-0 Yes 81mg Take 81 mg U nivers mg EC 4-25 by mouth ity of tablet 14:27: in the [place] [address] morning. Medical Branch aspirin 81 2023-0 Yes 81mg Take 81 mg U nivers mg EC 4-25 by mouth ity of tablet 14:27: in the [place] [address] morning. Medical Branch aspirin 81 2023-0 Yes 81mg Take 81 mg U nivers mg EC 4-25 by mouth ity of tablet 14:27: in the [place] [address] morning. Medical Branch aspirin 81 2023-0 Yes 81mg Take 81 mg U nivers mg EC 4-25 by mouth ity of tablet 14:27: in the [place] [address] morning. Medical Branch aspirin 81 2023-0 Yes 81mg Take 81 mg U nivers mg EC 4-25 by mouth ity of tablet 14:27: in the [place] [address] morning. Medical Branch losartan 2023-0 Yes [facility] 100 mg 4-21 ity of tablet 00:00: [place] [address] Medical Branch losartan 2023-0 Yes [facility] 100 mg 4-21 ity of tablet 00:00: [place] [address] Medical Branch losartan 2023-0 Yes [facility] 100 mg 4-21 ity of tablet 00:00: [place] [address] Medical Branch losartan 2023-0 Yes [facility] 100 mg 4-21 ity of tablet 00:00: [place] [address] Medical Branch losartan 2023-0 Yes [facility] 100 mg 4-21 ity of tablet 00:00: [place] [address] Medical Branch losartan 2023-0 Yes [facility] 100 mg 4-21 ity of tablet 00:00: [place] [address] Medical Branch losartan 2023-0 Yes [facility] 100 mg 4-21 ity of tablet 00:00: [place] [address] Medical Branch losartan 2023-0 Yes [facility] 100 mg 4-21 ity of tablet 00:00: [place] [facility] Branch losartan 2023-0 Yes [facility] 100 mg 4-21 ity of tablet 00:00: [place] [address] Medical Branch losartan 2023-0 Yes [facility] 100 mg 4-21 ity of tablet 00:00: [place] [address] Medical Branch losartan 2023-0 Yes [facility] 100 mg 4-21 ity of tablet 00:00: [place] [address] Medical Branch losartan 2023-0 Yes [facility] 100 mg 4-21 ity of tablet 00:00: [place] [address] Medical Branch losartan 2023-0 Yes [facility] 100 mg 4-21 ity of tablet 00:00: [place] [address] Medical Branch losartan 2023-0 Yes [facility] 100 mg 4-21 ity of tablet 00:00: [place] 00 Medical Branch losartan 2023-0 Yes [facility] 100 mg 4-21 ity of tablet 00:00: [place] [address] Medical Branch losartan 2023-0 Yes [facility] 100 mg 4-21 ity of tablet 00:00: [place] [address] Medical Branch losartan 2023-0 Yes [facility] 100 mg 4-21 ity of tablet 00:00: [place] [address] Medical Branch losartan 2023-0 Yes [facility] 100 mg 4-21 ity of tablet 00:00: [place] [address] Medical Branch losartan 2023-0 Yes [facility] 100 mg 4-21 ity of tablet 00:00: [place] [address] Medical Branch losartan 2023-0 Yes [facility] 100 mg 4-21 ity of tablet 00:00: [place] [address] Medical Branch losartan 2023-0 Yes [facility] 100 mg 4-21 ity of tablet 00:00: [place] [address] Medical Branch losartan 2023-0 Yes [facility] 100 mg 4-21 ity of tablet 00:00: [place] [address] Medical Branch losartan 2023-0 Yes [facility] 100 mg 4-21 ity of tablet 00:00: [place] [address] Medical Branch losartan 2023-0 Yes [facility] 100 mg 4-21 ity of tablet 00:00: [place] [address] Medical Branch losartan 2023-0 Yes [facility] 100 mg 4-21 ity of tablet 00:00: [place] [address] Medical Branch losartan 2023-0 Yes [facility] 100 mg 4-21 ity of tablet 00:00: [place] [address] Medical Branch losartan 2023-0 Yes [facility] 100 mg 4-21 ity of tablet 00:00: [place] [address] Medical Branch losartan 2023-0 Yes [facility] 100 mg 4-21 ity of tablet 00:00: [place] [address] Medical Branch losartan 2023-0 Yes [facility] 100 mg 4-21 ity of tablet 00:00: [place] [address] Medical Branch losartan 2023-0 2023- No [facility] 100 mg 4-21 08-18 ity of tablet 00:00: 00:00 [place] 00 :00 Medical Branch losartan 2023-0 2023- No [facility] 100 mg 4-21 08-18 ity of tablet 00:00: 00:00 [place] 00 :00 Medical Branch losartan 2023-0 2023- No [facility] 100 mg 4-21 08-18 ity of tablet 00:00: 00:00 [place] 00 :00 Medical Branch FARXIGA 10 3-0 Yes 10mg Take 1 Unive rs mg tablet 3-31 tablet by ity o f 00:00: mouth in [place] 00 the Medical morning. Branch GAEL 10 2022-0 Yes 10mg Take 1 Unive rs mg tablet 3-31 tablet by ity o f 00:00: mouth in [place] 00 the Medical morning. Branch GAEL 10 2022-0 Yes 10mg Take 1 Unive rs mg tablet 3-31 tablet by ity o f 00:00: mouth in [place] 00 the Medical morning. Branch GAEL 10 2022-0 Yes 10mg Take 1 Unive rs mg tablet 3-31 tablet by ity o f 00:00: mouth in [place] 00 the Medical morning. Branch GAEL 10 2022-0 Yes 10mg Take 1 Unive rs mg tablet 3-31 tablet by ity o f 00:00: mouth in [place] 00 the Medical morning. Branch GAEL 10 2022-0 Yes 10mg Take 1 Unive rs mg tablet 3-31 tablet by ity o f 00:00: mouth in [place] 00 the Medical morning. Branch GAEL 10 2022-0 Yes 10mg Take 1 Unive rs mg tablet 3-31 tablet by ity o f 00:00: mouth in [place] 00 the Medical morning. Branch GAEL 10 2022-0 Yes 10mg Take 1 Unive rs mg tablet 3-31 tablet by ity o f 00:00: mouth in [place] 00 the Medical morning. Branch GAEL 10 2022-0 Yes 10mg Take 1 Unive rs mg tablet 3-31 tablet by ity o f 00:00: mouth in [place] 00 the Medical morning. Branch GAEL 10 2022-0 Yes 10mg Take 1 Unive rs mg tablet 3-31 tablet by ity o f 00:00: mouth in [place] 00 the Medical morning. Branch GAEL 10 2022-0 Yes 10mg Take 1 Unive rs mg tablet 3-31 tablet by ity o f 00:00: mouth in [place] 00 the Medical morning. Branch GAEL 10 2022-0 Yes 10mg Take 1 Unive rs mg tablet 3-31 tablet by ity o f 00:00: mouth in [place] 00 the Medical morning. Branch GAEL 10 2022-0 Yes 10mg Take 1 Unive rs mg tablet 3-31 tablet by ity o f 00:00: mouth in [place] 00 the Medical morning. Branch GAEL 10 2022-0 Yes 10mg Take 1 Unive rs mg tablet 3-31 tablet by ity o f 00:00: mouth in [place] 00 the Medical morning. Branch GAEL 10 2022-0 Yes 10mg Take 1 Unive rs mg tablet 3-31 tablet by ity o f 00:00: mouth in [place] 00 the Medical morning. Branch GAEL 10 2022-0 Yes 10mg Take 1 Unive rs mg tablet 3-31 tablet by ity o f 00:00: mouth in [place] 00 the Medical morning. Branch GAEL 10 2022-0 Yes 10mg Take 1 Unive rs mg tablet 3-31 tablet by ity o f 00:00: mouth in [place] 00 the Medical morning. Branch GAEL 10 2022-0 Yes 10mg Take 1 Unive rs mg tablet 3-31 tablet by ity o f 00:00: mouth in [place] 00 the Medical morning. Branch GAEL 10 2022-0 Yes 10mg Take 1 Unive rs mg tablet 3-31 tablet by ity o f 00:00: mouth in [place] 00 the Medical morning. Branch GAEL 10 2022-0 Yes 10mg Take 1 Unive rs mg tablet 3-31 tablet by ity o f 00:00: mouth in [place] 00 the Medical morning. Branch GAEL 10 2022-0 Yes 10mg Take 1 Unive rs mg tablet 3-31 tablet by ity o f 00:00: mouth in [place] 00 the Medical morning. Branch GAEL 10 2022-0 Yes 10mg Take 1 Unive rs mg tablet 3-31 tablet by ity o f 00:00: mouth in [place] 00 the Medical morning. Branch GAEL 10 2022-0 Yes 10mg Take 1 Unive rs mg tablet 3-31 tablet by ity o f 00:00: mouth in [place] 00 the Medical morning. Branch GAEL 10 2022-0 Yes 10mg Take 1 Unive rs mg tablet 3-31 tablet by ity o f 00:00: mouth in [place] 00 the Medical morning. Branch GAEL 10 2022-0 Yes 10mg Take 1 Unive rs mg tablet 3-31 tablet by ity o f 00:00: mouth in [place] 00 the Medical morning. Branch GAEL 10 2022-0 Yes 10mg Take 1 Unive rs mg tablet 3-31 tablet by ity o f 00:00: mouth in [place] 00 the Medical morning. Branch GAEL 10 2022-0 Yes 10mg Take 1 Unive rs mg tablet 3-31 tablet by ity o f 00:00: mouth in [place] 00 the Medical morning. Branch GAEL 10 2022-0 Yes 10mg Take 1 Unive rs mg tablet 3-31 tablet by ity o f 00:00: mouth in [place] 00 the Medical morning. Branch GAEL 10 2022-0 Yes 10mg Take 1 Unive rs mg tablet 3-31 tablet by ity o f 00:00: mouth in [place] 00 the Medical morning. Branch GAEL 10 2022-0 Yes 10mg Take 1 Unive rs mg tablet 3-31 tablet by ity o f 00:00: mouth in [place] 00 the Medical morning. Branch GAEL 10 2022-0 Yes 10mg Take 1 Unive rs mg tablet 3-31 tablet by ity o f 00:00: mouth in [place] 00 the Medical morning. Branch GAEL 10 2022-0 Yes 10mg Take 1 Unive rs mg tablet 3-31 tablet by ity o f 00:00: mouth in [place] 00 the Medical morning. Branch GAEL 10 2022-0 Yes 10mg Take 1 Unive rs mg tablet 3-31 tablet by ity o f 00:00: mouth in [place] 00 the Medical morning. Branch GAEL 10 2022-0 Yes 10mg Take 1 Unive rs mg tablet 3-31 tablet by ity o f 00:00: mouth in [place] 00 the Medical morning. Branch GAEL 10 2022-0 Yes 10mg Take 1 Unive rs mg tablet 3-31 tablet by ity o f 00:00: mouth in [place] 00 the Medical morning. Branch GAEL 10 2022-0 Yes 10mg Take 1 Unive rs mg tablet 3-31 tablet by ity o f 00:00: mouth in [place] 00 the Medical morning. Branch GAEL 10 2022-0 Yes 10mg Take 1 Unive rs mg tablet 3-31 tablet by ity o f 00:00: mouth in [place] 00 the Medical morning. Branch GAEL 10 2022-0 Yes 10mg Take 1 Unive rs mg tablet 3-31 tablet by ity o f 00:00: mouth in [place] 00 the Medical morning. Branch GAEL 10 2022-0 Yes 10mg Take 1 Unive rs mg tablet 3-31 tablet by ity o f 00:00: mouth in [place] 00 the Medical morning. Branch tc 2022- No [id number] 40mCi 40 [facility] 99m-tetrofo 06-05 [facility] 18:[facility]: 18:10 , [place] ([facility]) 00 :00 Intravenou Medi deep injection s, ONCE, 1 Bran ch 40 dose, On [facility] 06/05/22 at 1215, Routine regadenoson 2022- No [id number] .4mg 0.4 mg, IV Univers (LEXISCAN) 06-05 Push, ity of injection 17:00: 18:05 [place] 1 [place] 0.[place] :[place] dose, On [facility] 06/05/22 at 1100, Routine
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 Medica l Branch metoprolol 2022-0 Yes 25mg Take 1 Unive rs succinate 2-20 tablet by ity o f XL 25 mg 24 00:00: mouth in [place] hr tablet 00 the Medical morning. Branch metoprolol 2022-0 Yes 25mg Take 1 Unive rs succinate 2-20 tablet by ity o f XL 25 mg 24 00:00: mouth in [place] hr tablet 00 the Medical morning. Branch metoprolol 2022-0 Yes 25mg Take 1 Unive rs succinate 2-20 tablet by ity o f XL 25 mg 24 00:00: mouth in [place] hr tablet 00 the Medical morning. Branch metoprolol 2023-0 Yes 25mg Take 1 Unive rs succinate 2-20 tablet by ity o f XL 25 mg 24 00:00: mouth in [place] hr tablet 00 the Medical morning. Branch metoprolol 2023-0 Yes 25mg Take 1 Unive rs succinate 2-20 tablet by ity o f XL 25 mg 24 00:00: mouth in [place] hr tablet 00 the Medical morning. Branch metoprolol 2023-0 Yes 25mg Take 1 Unive rs succinate 2-20 tablet by ity o f XL 25 mg 24 00:00: mouth in [place] hr tablet 00 the Medical morning. Branch metoprolol 2023-0 Yes 25mg Take 1 Unive rs succinate 2-20 tablet by ity o f XL 25 mg 24 00:00: mouth in [place] hr tablet 00 the Medical morning. Branch metoprolol 2023-0 Yes 25mg Take 1 Unive rs succinate 2-20 tablet by ity o f XL 25 mg 24 00:00: mouth in [place] hr tablet 00 the Medical morning. Branch metoprolol 2023-0 Yes 25mg Take 1 Unive rs succinate 2-20 tablet by ity o f XL 25 mg 24 00:00: mouth in [place] hr tablet 00 the Medical morning. Branch metoprolol 2023-0 Yes 25mg Take 1 Unive rs succinate 2-20 tablet by ity o f XL 25 mg 24 00:00: mouth in [place] hr tablet 00 the Medical morning. Branch metoprolol 2023-0 Yes 25mg Take 1 Unive rs succinate 2-20 tablet by ity o f XL 25 mg 24 00:00: mouth in [place] hr tablet 00 the Medical morning. Branch metoprolol 2023-0 Yes 25mg Take 1 Unive rs succinate 2-20 tablet by ity o f XL 25 mg 24 00:00: mouth in [place] hr tablet 00 the Medical morning. Branch metoprolol 2023-0 Yes 25mg Take 1 Unive rs succinate 2-20 tablet by ity o f XL 25 mg 24 00:00: mouth in [place] hr tablet 00 the Medical morning. Branch metoprolol 2023-0 Yes 25mg Take 1 Unive rs succinate 2-20 tablet by ity o f XL 25 mg 24 00:00: mouth in [place] hr tablet 00 the Medical morning. Branch metoprolol 2023-0 Yes 25mg Take 1 Unive rs succinate 2-20 tablet by ity o f XL 25 mg 24 00:00: mouth in [place] hr tablet 00 the Medical morning. Branch metoprolol 2023-0 Yes 25mg Take 1 Unive rs succinate 2-20 tablet by ity o f XL 25 mg 24 00:00: mouth in [place] hr tablet 00 the Medical morning. Branch metoprolol 2023-0 Yes 25mg Take 1 Unive rs succinate 2-20 tablet by ity o f XL 25 mg 24 00:00: mouth in [place] hr tablet 00 the Medical morning. Branch metoprolol 2023-0 Yes 25mg Take 1 Unive rs succinate 2-20 tablet by ity o f XL 25 mg 24 00:00: mouth in [place] hr tablet 00 the Medical morning. Branch metoprolol 2023-0 Yes 25mg Take 1 Unive rs succinate 2-20 tablet by ity o f XL 25 mg 24 00:00: mouth in [place] hr tablet 00 the Medical morning. Branch metoprolol 2023-0 Yes 25mg Take 1 Unive rs succinate 2-20 tablet by ity o f XL 25 mg 24 00:00: mouth in [place] hr tablet 00 the Medical morning. Branch metoprolol 2023-0 Yes 25mg Take 1 Unive rs succinate 2-20 tablet by ity o f XL 25 mg 24 00:00: mouth in [place] hr tablet 00 the Medical morning. Branch metoprolol 2023-0 Yes 25mg Take 1 Unive rs succinate 2-20 tablet by ity o f XL 25 mg 24 00:00: mouth in [place] hr tablet 00 the Medical morning. Branch metoprolol 2023-0 Yes 25mg Take 1 Unive rs succinate 2-20 tablet by ity o f XL 25 mg 24 00:00: mouth in [place] hr tablet 00 the Medical morning. Branch metoprolol 2023-0 Yes 25mg Take 1 Unive rs succinate 2-20 tablet by ity o f XL 25 mg 24 00:00: mouth in [place] hr tablet 00 the Medical morning. Branch metoprolol 2023-0 Yes 25mg Take 1 Unive rs succinate 2-20 tablet by ity o f XL 25 mg 24 00:00: mouth in [place] hr tablet 00 the Medical morning. Branch metoprolol 2023-0 Yes 25mg Take 1 Unive rs succinate 2-20 tablet by ity o f XL 25 mg 24 00:00: mouth in [place] hr tablet 00 the Medical morning. Branch metoprolol 2023-0 Yes 25mg Take 1 Unive rs succinate 2-20 tablet by ity o f XL 25 mg 24 00:00: mouth in [place] hr tablet 00 the Medical morning. Branch metoprolol 2023-0 Yes 25mg Take 1 Unive rs succinate 2-20 tablet by ity o f XL 25 mg 24 00:00: mouth in [place] hr tablet 00 the Medical morning. Branch metoprolol 2023-0 Yes 25mg Take 1 Unive rs succinate 2-20 tablet by ity o f XL 25 mg 24 00:00: mouth in [place] hr tablet 00 the Medical morning. Branch metoprolol 2023-0 Yes 25mg Take 1 Unive rs succinate 2-20 tablet by ity o f XL 25 mg 24 00:00: mouth in [place] hr tablet 00 the Medical morning. Branch metoprolol 2023-0 Yes 25mg Take 1 Unive rs succinate 2-20 tablet by ity o f XL 25 mg 24 00:00: mouth in [place] hr tablet 00 the Medical morning. Branch metoprolol 2023-0 Yes 25mg Take 1 Unive rs succinate 2-20 tablet by ity o f XL 25 mg 24 00:00: mouth in [place] hr tablet 00 the Medical morning. Branch metoprolol 2023-0 Yes 25mg Take 1 Unive rs succinate 2-20 tablet by ity o f XL 25 mg 24 00:00: mouth in [place] hr tablet 00 the Medical morning. Branch metoprolol 2023-0 Yes 25mg Take 1 Unive rs succinate 2-20 tablet by ity o f XL 25 mg 24 00:00: mouth in [place] hr tablet 00 the Medical morning. Branch metoprolol 2023-0 Yes 25mg Take 1 Unive rs succinate 2-20 tablet by ity o f XL 25 mg 24 00:00: mouth in [place] hr tablet 00 the Medical morning. Branch metoprolol 2023-0 Yes 25mg Take 1 Unive rs succinate 2-20 tablet by ity o f XL 25 mg 24 00:00: mouth in [place] hr tablet 00 the Medical morning. Branch metoprolol 2023-0 Yes 25mg Take 1 Unive rs succinate 2-20 tablet by ity o f XL 25 mg 24 00:00: mouth in [place] hr tablet 00 the Medical morning. Branch metoprolol 2023-0 Yes 25mg Take 1 Unive rs succinate 2-20 tablet by ity o f XL 25 mg 24 00:00: mouth in [place] hr tablet 00 the Medical morning. Branch metoprolol 2023-0 Yes 25mg Take 1 Unive rs succinate 2-20 tablet by ity o f XL 25 mg 24 00:00: mouth in [place] hr tablet 00 the Medical morning. Branch metoprolol 2023-0 Yes 25mg Take 1 Unive rs succinate 2-20 tablet by ity o f XL 25 mg 24 00:00: mouth in [place] hr tablet 00 the Medical morning. Branch metoprolol 2023-0 Yes 25mg Take 1 Unive rs succinate 2-20 tablet by ity o f XL 25 mg 24 00:00: mouth in [place] hr tablet 00 the Medical morning. Branch metoprolol 2023-0 Yes 25mg Take 1 Unive rs succinate 2-20 tablet by ity o f XL 25 mg 24 00:00: mouth in [place] hr tablet 00 the Medical morning. Branch metoprolol 2023-0 Yes 25mg Take 1 Unive rs succinate 2-20 tablet by ity o f XL 25 mg 24 00:00: mouth in [place] hr tablet 00 the Medical morning. Branch metoprolol 2023-0 Yes 25mg Take 1 Unive rs succinate 2-20 tablet by ity o f XL 25 mg 24 00:00: mouth in [place] hr tablet 00 the Medical morning. Branch metoprolol 2023-0 Yes 25mg Take 1 Unive rs succinate 2-20 tablet by ity o f XL 25 mg 24 00:00: mouth in [place] hr tablet 00 the Medical morning. Branch metoprolol 2023-0 Yes 25mg Take 1 Unive rs succinate 2-20 tablet by ity o f XL 25 mg 24 00:00: mouth in [place] hr tablet 00 the Medical morning. Branch metoprolol 2023-0 Yes 25mg Take 1 Unive rs succinate 2-20 tablet by ity o f XL 25 mg 24 00:00: mouth in [place] hr tablet 00 the morning. Branch metoprolol 0 Yes 25mg Take 1 Unive rs succinate 2-20 tablet by ity o f XL 25 mg 24 00:00: mouth in [place] hr tablet 00 the morning. Branch atorvastati 0 Yes [id number] 20mg Take 1 [facility] n 20 mg 2-03 tablet by ity of tablet 00:00: mouth at [place] 00 bedtime. Medical Branch atorvastati 2022-0 Yes [id number] 20mg Take 1 [facility] n 20 mg 2-03 tablet by ity of tablet 00:00: mouth at [place] 00 bedtime. Medical Branch atorvastati 0 Yes [id number] 20mg Take 1 [facility] n 20 mg 2-03 tablet by ity of tablet 00:00: mouth at [place] 00 bedtime. Medical Branch atorvastati 0 Yes [id number] 20mg Take 1 [facility] n 20 mg 2-03 tablet by ity of tablet 00:00: mouth at [place] 00 bedtime. Medical Branch atorvastati 0 Yes [id number] 20mg Take 1 [facility] n 20 mg 2-03 tablet by ity of tablet 00:00: mouth at [place] 00 bedtime. Medical Branch atorvastati 0 Yes [id number] 20mg Take 1 [facility] n 20 mg 2-03 tablet by ity of tablet 00:00: mouth at [place] 00 bedtime. Medical Branch atorvastati 0 Yes [id number] 20mg Take 1 [facility] n 20 mg 2-03 tablet by ity of tablet 00:00: mouth at [place] 00 bedtime. Medical Branch atorvastati 2022-0 Yes [id number] 20mg Take 1 [facility] n 20 mg 2-03 tablet by ity of tablet 00:00: mouth at [place] 00 bedtime. Medical Branch atorvastati 0 Yes [id number] 20mg Take 1 [facility] n 20 mg 2-03 tablet by ity of tablet 00:00: mouth at [place] 00 bedtime. Medical Branch atorvastati 2022-0 Yes [id number] 20mg Take 1 [facility] n 20 mg 2-03 tablet by ity of tablet 00:00: mouth at [place] 00 bedtime. Medical Branch atorvastati 2022-0 Yes [id number] 20mg Take 1 [facility] n 20 mg 2-03 tablet by ity of tablet 00:00: mouth at [place] [address] bedtime. Medical Branch atorvastati 2022-0 Yes [id number] 20mg Take 1 [facility] n 20 mg 2-03 tablet by ity of tablet 00:00: mouth at [place] [address] bedtime. Medical Branch atorvastati 2022-0 Yes [id number] 20mg Take 1 [facility] n 20 mg 2-03 tablet by [facility]y of tablet 00:00: mouth at [place] [address] bedtime. Medical Branch atorvastati 2022-0 Yes [id number] 20mg Take 1 [facility] n 20 mg 2-03 tablet by ity of tablet 00:00: mouth at [place] [address] bedtime. Medical Branch atorvastati 0 Yes [id number] 20mg Take 1 [facility] n 20 mg 2-03 tablet by ity of tablet 00:00: mouth at [place] [address] bedtime. Medical Branch atorvastati 2022-0 Yes [id number] 20mg Take 1 [facility] n 20 mg 2-03 tablet by ity of tablet 00:00: mouth at [place] [address] bedtime. Medical Branch atorvastati 0 Yes [id number] 20mg Take 1 [facility] 20 mg 2-03 tablet by ity of tablet 00:00: mouth at [place] [address] bedtime. Medical Branch atorvastati 0 Yes [id number] 20mg Take 1 [facility] n 20 mg 2-03 tablet by ity of tablet 00:00: mouth at [place] [address] bedtime. Medical Branch atorvastati 2022-0 Yes [id number] 20mg Take 1 [facility] 20 mg 2-03 tablet by [facility]y of tablet 00:00: mouth at [place] [address] bedtime. Medical Branch atorvastati 2022-0 Yes [id number] 20mg Take 1 [facility] n 20 mg 2-03 tablet by ity of tablet 00:00: mouth at [place] [address] bedtime. Medical Branch atorvastati 2022-0 Yes [id number] 20mg Take 1 [facility] 20 mg 2-03 tablet by ity of tablet 00:00: mouth at [place] [address] bedtime. Medical Branch atorvastati 2022-0 Yes [id number] 20mg Take 1 [facility] n 20 mg 2-03 tablet by [facility]y of tablet 00:00: mouth at [place] [address] bedtime. Medical Branch atorvastati 2022-0 Yes [id number] 20mg Take 1 [facility] n 20 mg 2-03 tablet by ity of tablet 00:00: mouth at [place] [address] bedtime. Medical Branch atorvastati 2022-0 Yes [id number] 20mg Take 1 [facility] n 20 mg 2-03 tablet by [facility]y of tablet 00:00: mouth at [place] [address] bedtime. Medical Branch atorvastati 2022-0 Yes [id number] 20mg Take 1 [facility] 20 mg 2-03 tablet by ity of tablet 00:00: mouth at [place] [address] bedtime. Medical Branch atorvastati 2022-0 Yes [id number] 20mg Take 1 [facility] 20 mg 2-03 tablet by ity of tablet 00:00: mouth at [place] [address] bedtime. Medical Branch atorvastati 0 Yes [id number] 20mg Take 1 [facility] 20 mg 2-03 tablet by ity of tablet 00:00: mouth at [place] [address] bedtime. Medical Branch atorvastati 0 Yes [id number] 20mg Take 1 [facility] 20 mg 2-03 tablet by ity of tablet 00:00: mouth at [place] [address] bedtime. Medical Branch atorvastati 0 Yes [id number] 20mg Take 1 [facility] 20 mg 2-03 tablet by ity of tablet 00:00: mouth at [place] [address] bedtime. Medical Branch atorvastati 0 Yes [id number] 20mg Take 1 [facility] 20 mg 2-03 tablet by ity of tablet 00:00: mouth at [place] [address] bedtime. Medical Branch atorvastati 2022-0 Yes [id number] 20mg Take 1 [facility] 20 mg 2-03 tablet by ity of tablet 00:00: mouth at [place] [address] bedtime. Medical Branch atorvastati 2022-0 Yes [id number] 20mg Take 1 [facility] 20 mg 2-03 tablet by ity of tablet 00:00: mouth at [place] [address] bedtime. Medical Branch atorvastati 0 Yes [id number] 20mg Take 1 [facility] 20 mg 2-03 tablet by ity of tablet 00:00: mouth at [place] [address] bedtime. Medical Branch atorvastati 2022-0 Yes [id number] 20mg Take 1 [facility] 20 mg 2-03 tablet by ity of tablet 00:00: mouth at [place] [address] bedtime. Medical Branch atorvastati Yes [id number] 20mg Take 1 [facility] 20 mg 2-03 tablet by ity of tablet 00:00: mouth at [place] [address] bedtime. Medical Branch atorvastati Yes [id number] 20mg Take 1 [facility] 20 mg 2-03 tablet by ity of tablet 00:00: mouth at [place] [address] bedtime. Medical Branch atorvastati Yes [id number] 20mg Take 1 [facility] 20 mg 2-03 tablet by ity of tablet 00:00: mouth at [place] [address] bedtime. Medical Branch atorvastati Yes [id number] 20mg Take 1 [facility] 20 mg 2-03 tablet by ity of tablet 00:00: mouth at [place] [address] bedtime. Medical Branch atorvastati Yes [id number] 20mg Take 1 [facility] 20 mg 2-03 tablet by ity of tablet 00:00: mouth at [place] [address] bedtime. Medical Branch atorvastati 2022- No [id number] 20mg Take 1 [facility] n 20 mg 2-03 08-18 tablet by ity of tablet 00:00: 00:00 mouth at [place] 00 :00 bedtime. Medical Branch atorvastati 2022- No [id number] 20mg Take 1 [facility] n 20 mg 2-03 08-18 tablet by ity of tablet 00:00: 00:00 mouth at [place] 00 :00 bedtime. Medical Branch atorvastati 2022- No [id number] 20mg Take 1 [facility] n 20 mg 2-03 08-18 tablet by ity of tablet 00:00: 00:00 mouth at [place] 00 :00 bedtime. Medical Branch lovastatin 2022-0 2022- No 10mg Take 10 mg [facility] 10 mg 05-09 by mouth ity of tablet 14:45: 00:00 at [place] 08 :00 bedtime. Medical Branch lovastatin 2022-2022- No 10mg Take 10 mg [facility] 10 mg 05-09 by mouth ity of tablet 14:45: 00:00 at [place] 08 :00 bedtime. Medical Branch metoprolol 2023-0 Yes 25mg Take 25 mg U nivers succinate 2-01 by mouth ity of XL 25 mg 24 14:27: [place] tablet 05 morning. Medica l Branch metoprolol 2023-0 Yes 25mg Take 25 mg U nivers succinate 2-01 by mouth ity of XL 25 mg 24 14:27: [place] tablet 05 morning. Medica l Branch metoprolol 2023-0 Yes 25mg Take 25 mg U nivers succinate 2-01 by mouth ity of XL 25 mg 24 14:27: [place] tablet morning. Medica l Branch metoprolol 2023-0 Yes 25mg Take 25 mg U nivers succinate 2-01 by mouth ity of XL 25 mg 24 14:27: [place] tablet morning. Medica l Branch isosorbide 2023-0 Yes 60mg Take 60 mg U nivers mononitrate 2-01 by mouth ity of 60 mg 24 hr 14:27: [place] morning. [facility] isosorbide 2023-0 Yes 60mg Take 60 mg U nivers mononitrate 2-01 by mouth ity of 60 mg 24 hr 14:27: [place] morning. [facility] isosorbide 2023-0 Yes 60mg Take 60 mg U nivers mononitrate 2-01 by mouth ity of 60 mg 24 hr 14:27: [place] 04 morning. [facility] isosorbide 2023-0 Yes 60mg Take 60 mg U nivers mononitrate 2-01 by mouth ity of 60 mg 24 hr 14:27: [place] morning. [facility] isosorbide 2023-0 Yes 60mg Take 60 mg U nivers mononitrate 2-01 by mouth ity of 60 mg 24 hr 14:27: [place] morning. [facility] isosorbide 2023-0 Yes 60mg Take 60 mg U nivers mononitrate 2-01 by mouth ity of 60 mg 24 hr 14:27: [place] 04 morning. [facility] isosorbide 2023-0 Yes 60mg Take 60 mg U nivers mononitrate 2-01 by mouth ity of 60 mg 24 hr 14:27: [place] morning. [facility] isosorbide 2023-0 Yes 60mg Take 60 mg U nivers mononitrate 2-01 by mouth ity of 60 mg 24 hr 14:27: [place] tablet morning. [facility] isosorbide 2023-0 Yes 60mg Take 60 mg U nivers mononitrate 2-01 by mouth ity of 60 mg 24 hr 14:27: [place] tablet morning. [facility] isosorbide 2023-0 Yes 60mg Take 60 mg U nivers mononitrate 2-01 by mouth ity of 60 mg 24 hr 14:27: [place] tablet morning. [facility] isosorbide 2023-0 Yes 60mg Take 60 mg U nivers mononitrate 2-01 by mouth ity of 60 mg 24 hr 14:27: [place] tablet morning. [facility] isosorbide 2023-0 Yes 60mg Take 60 mg U nivers mononitrate 2-01 by mouth ity of 60 mg 24 hr 14:27: [place] tablet morning. [facility] aspirin 81 2023-0 Yes 81mg Take 81 mg U nivers mg EC 2-01 by mouth ity of tablet 14:27: in the [place] morning. Medical Branch aspirin 81 2023-0 Yes 81mg Take 81 mg U nivers mg EC 2-01 by mouth ity of tablet 14:27: in the [place] morning. Medical Branch aspirin 81 2023-0 Yes 81mg Take 81 mg U nivers mg EC 2-01 by mouth ity of tablet 14:27: in the [place] morning. Medical Branch aspirin 81 2023-0 Yes 81mg Take 81 mg U nivers mg EC 2-01 by mouth ity of tablet 14:27: in the [place] morning. Medical Branch aspirin 81 2023-0 Yes 81mg Take 81 mg U nivers mg EC 2-01 by mouth ity of tablet 14:27: in the [place] morning. Medical Branch aspirin 81 2023-0 Yes 81mg Take 81 mg U nivers mg EC 2-01 by mouth ity of tablet 14:27: in the [place] morning. Medical Branch aspirin 81 2023-0 Yes 81mg Take 81 mg U nivers mg EC 2-01 by mouth ity of tablet 14:27: in the [place] morning. Medical Branch aspirin 81 2023-0 Yes 81mg Take 81 mg U nivers mg EC 2-01 by mouth ity of tablet 14:27: in the [place] morning. Medical Branch aspirin 81 2023-0 Yes 81mg Take 81 mg U nivers mg EC 2-01 by mouth ity of tablet 14:27: in the [place] morning. Medical Branch aspirin 81 2023-0 Yes 81mg Take 81 mg U nivers mg EC 2-01 by mouth ity of tablet 14:27: in the [place] morning. Medical Branch aspirin 81 2023-0 Yes 81mg Take 81 mg U nivers mg EC 2-01 by mouth ity of tablet 14:27: in the [place] morning. Medical Branch aspirin 81 2023-0 Yes 81mg Take 81 mg U nivers mg EC 2-01 by mouth ity of tablet 14:27: in the [place] morning. Medical Branch amiodarone 2023-0 Yes 200mg Take 200 Un lena 200 mg 2-01 mg by ity of tablet 14:27: mouth in [place] the Medical morning. Branch amiodarone 2023-0 Yes 200mg Take 200 Un lena 200 mg 2-01 mg by ity of tablet 14:27: mouth in [place] the Medical morning. Branch amiodarone 2023-0 Yes 200mg Take 200 Un lena 200 mg 2-01 mg by ity of tablet 14:27: mouth in [place] the Medical morning. Branch amiodarone 2023-0 Yes 200mg Take 200 Un lena 200 mg 2-01 mg by ity of tablet 14:27: mouth in [place] the Medical morning. Branch amiodarone 2023-0 Yes 200mg Take 200 Un lena 200 mg 2-01 mg by ity of tablet 14:27: mouth in [place] the Medical morning. Branch amiodarone 2023-0 Yes 200mg Take 200 Un lena 200 mg 2-01 mg by ity of tablet 14:27: mouth in [place] the Medical morning. Branch amiodarone 2023-0 Yes 200mg Take 200 Un lena 200 mg 2-01 mg by ity of tablet 14:27: mouth in [place] the Medical morning. Branch amiodarone 2023-0 Yes 200mg Take 200 Un lena 200 mg 2-01 mg by ity of tablet 14:27: mouth in [place] the Medical morning. Branch amiodarone 2022-0 Yes 200mg Take 200 Un lena 200 mg 2-01 mg by ity of tablet 14:27: mouth in [place] the Medical morning. Branch amiodarone 2022-0 Yes 200mg Take 200 Un lena 200 mg 2-01 mg by ity of tablet 14:27: mouth in [place] the Medical morning. Branch amiodarone 2022-0 Yes 200mg Take 200 Un lena 200 mg 2-01 mg by ity of tablet 14:27: mouth in [place] the Medical morning. Branch amiodarone 2022-0 Yes 200mg Take 200 Un lena 200 mg 2-01 mg by ity of tablet 14:27: mouth in [place] the Medical morning. Branch atorvastati 2022-0 2022- No [id number] 20mg Take 1 [facility] n 20 mg 05-09 tablet by ity of tablet 00:00: 00:00 mouth at [place] [facility] atorvastati 2022-0 2022- No [id number] 20mg Take 1 [facility] n 20 mg 205-11 tablet by ity of tablet 00:00: 00:00 mouth at [place] 00 :00 [facility] Medical for 90 Branch days. atorvastati 2022-0 3- No [id number] 20mg Take 1 [facility] n 20 mg 05-09 tablet by ity of tablet 00:00: 00:00 mouth at [place] 00 :00 [facility] for 90 Branch days. clopidogreL 2022-0 2022- No 75mg Take 75 mg Univers (PLAVIX) 75 05-08 by mouth ity of mg tablet 14:08: 00:00 in the [place] 31 :00 morning. Medical Branch clopidogreL 3-0 Yes 75mg Take 1 Univ ers (PLAVIX) 75 05-08 tablet by ity of mg tablet 00:00: mouth in [facility] 00 the Medical morning. Branch clopidogreL 3-0 Yes 75mg Take 1 Univ ers (PLAVIX) 75 05-08 tablet by ity of mg tablet 00:00: mouth in [facility] 00 the Medical morning. Branch clopidogreL 3-0 Yes 75mg Take 1 Univ ers (PLAVIX) 75 1-31 tablet by [facility] of mg tablet 00:00: [place] 00 the Medical morning. Branch clopidogreL 2023-0 Yes 75mg Take 1 [facility] ers (PLAVIX) 75 1-31 tablet by ity of mg tablet 00:00: [place] 00 the Medical morning. Branch clopidogreL 2023-0 Yes 75mg Take 1 [facility] ers (PLAVIX) 75 1-31 tablet by [facility] of mg tablet 00:00: [place] 00 the Medical morning. Branch clopidogreL 2023-0 Yes 75mg Take 1 [facility] ers (PLAVIX) 75 1-31 tablet by ity of mg tablet 00:00: mouth [place] 00 the Medical morning. Branch clopidogreL 2023-0 Yes 75mg Take 1 [facility] ers (PLAVIX) 75 1-31 tablet by ity of mg tablet 00:00: mouth [place] 00 the Medical morning. Branch clopidogreL 2023-0 Yes 75mg Take 1 [facility] ers (PLAVIX) 75 1-31 tablet by [facility] of mg tablet 00:00: mouth [place] 00 the Medical morning. Branch clopidogreL 2023-0 Yes 75mg Take 1 [facility] ers (PLAVIX) 75 1-31 tablet by [facility] of mg tablet 00:00: [place] 00 the Medical morning. Branch clopidogreL 2023-0 Yes 75mg Take 1 [facility] ers (PLAVIX) 75 1-31 tablet by it[facility] of mg tablet 00:00: mouth [place] 00 the Medical morning. Branch clopidogreL 2023-0 Yes 75mg Take 1 [facility] ers (PLAVIX) 75 1-31 tablet by ity of mg tablet 00:00: mouth [place] 00 the Medical morning. Branch clopidogreL 2023-0 Yes 75mg Take 1 [facility] ers (PLAVIX) 75 1-31 tablet by ity of mg tablet 00:00: mouth [place] 00 the Medical morning. Branch clopidogreL 2023-0 Yes 75mg Take 1 [facility] ers (PLAVIX) 75 1-31 tablet by ity of mg tablet 00:00: mouth [place] 00 the Medical morning. Branch clopidogreL 2023-0 Yes 75mg Take 1 [facility] ers (PLAVIX) 75 1-31 tablet by ity of mg tablet 00:00: mouth [place] 00 the Medical morning. Branch clopidogreL 2023-0 Yes 75mg Take 1 [facility] ers (PLAVIX) 75 1-31 tablet by ity of mg tablet 00:00: mouth [place] 00 the Medical morning. Branch clopidogreL 2023-0 Yes 75mg Take 1 [facility] ers (PLAVIX) 75 1-31 tablet by ity of mg tablet 00:00: mouth [place] 00 the Medical morning. Branch clopidogreL 2023-0 Yes 75mg Take 1 [facility] ers (PLAVIX) 75 1-31 tablet by ity of mg tablet 00:00: mouth [place] 00 the Medical morning. Branch clopidogreL 2023-0 Yes 75mg Take 1 [facility] ers (PLAVIX) 75 1-31 tablet by ity of mg tablet 00:00: mouth [place] 00 the Medical morning. Branch clopidogreL 2023-0 Yes 75mg Take 1 [facility] ers (PLAVIX) 75 1-31 tablet by ity of mg tablet 00:00: mouth [place] 00 the Medical morning. Branch clopidogreL 2023-0 Yes 75mg Take 1 [facility] ers (PLAVIX) 75 1-31 tablet by ity of mg tablet 00:00: mouth [place] 00 the Medical morning. Branch clopidogreL 2023-0 Yes 75mg Take 1 [facility] ers (PLAVIX) 75 1-31 tablet by ity of mg tablet 00:00: mouth [place] 00 the Medical morning. Branch clopidogreL 2023-0 Yes 75mg Take 1 Univ ers (PLAVIX) 75 1-31 tablet by ity of mg tablet 00:00: mouth [place] 00 the Medical morning. Branch clopidogreL 2023-0 Yes 75mg Take 1 Univ ers (PLAVIX) 75 1-31 tablet by ity of mg tablet 00:00: mouth [place] 00 the Medical morning. Branch clopidogreL 2023-0 Yes 75mg Take 1 Univ ers (PLAVIX) 75 1-31 tablet by ity of mg tablet 00:00: mouth [place] 00 the Medical morning. Branch clopidogreL 2023-0 Yes 75mg Take 1 Univ ers (PLAVIX) 75 1-31 tablet by ity of mg tablet 00:00: mouth [place] 00 the Medical morning. Branch clopidogreL 2023-0 Yes 75mg Take 1 [facility] ers (PLAVIX) 75 1-31 tablet by ity of mg tablet 00:00: mouth [place] 00 the Medical morning. Branch clopidogreL 2023-0 Yes 75mg Take 1 Univ ers (PLAVIX) 75 1-31 tablet by ity of mg tablet 00:00: mouth [place] 00 the Medical morning. Branch clopidogreL 0 Yes 75mg Take 1 Univ ers (PLAVIX) 75 1-31 tablet by ity of mg tablet 00:00: mouth [place] 00 the Medical morning. Branch clopidogreL 0 2022- No 75mg Take 1 Uni vers (PLAVIX) 75 1-31 06-14 tablet by it y of mg tablet 00:00: 00:00 mouth in [place] 00 :00 the Medical morning. Branch pentoxifyll 2021-04 Yes 400mg Take 400 U nivers ine 400 mg 2-23 mg by ity of SR tablet 10:49: mouth in [facility] 22 the Medical morning Branch and 400 mg in the evening. clopidogreL 2021-04 Yes 75mg Take 75 mg Univers (PLAVIX) 75 2-23 by mouth ity of mg tablet 10:49: in the [place] [address] morning. Medical Branch isosorbide 2021-04 Yes 60mg Take 60 mg U nivers mononitrate 2-23 by mouth ity of 60 mg 24 hr 10:49: in the [facility] tablet morning. Medical Branch famotidine 2021-04 Yes 20mg Take 20 mg U nivers 20 mg 2-23 by mouth ity of tablet 10:49: in the [place] 22 morning Medical and 20 mg Branch in the evening. aspirin 81 2021-04 Yes 81mg Take 81 mg U nivers mg EC 2-23 by mouth ity of tablet 10:49: in the [place] [address] morning. Medical Branch metoprolol 2021-04 Yes 25mg Take 25 mg U nivers succinate 2-23 by mouth ity of XL 25 mg 24 10:49[facility] morning. Medica l Branch omega-3s/dh 2021-04 Yes 1{tbl} Take 1 Un lena a/epa/fish 2-23 tablet by ity of oil/D3 10:49: mouth [place] (VITAMIN-D 22 daily. Medical + OMEGA-3 Branch ORAL) lovastatin 2021-04 Yes 10mg Take 10 mg U nivers 10 mg 2-23 by mouth ity of tablet 10:49: at [place] [address] bedtime. Medical Branch amiodarone 2021-04 Yes 200mg Take 200 Un lena 200 mg 2-23 mg by ity of tablet 10:49: mouth in [place] [address] the Medical morning. Branch pentoxifyll 2021-04 Yes 400mg Take 400 U nivers ine 400 mg 2-23 mg by ity of SR tablet 10:49: mouth in [facility] 22 the Medical morning Branch and 400 mg in the evening. clopidogreL 2021-04 Yes 75mg Take 75 mg Univers (PLAVIX) 75 2-23 by mouth ity of mg tablet 10:49: in the [place] [address] morning. Medical Branch isosorbide 2021-04 Yes 60mg Take 60 mg U nivers mononitrate 2-23 by mouth ity of 60 mg 24 hr 10:49: in the [place] [id number] morning. Medical Branch famotidine 2021-04 Yes 20mg Take 20 mg U nivers 20 mg 2-23 by mouth ity of tablet 10:49: in the [place] [address] morning Medical and 20 mg Branch in the evening. aspirin 81 2021-04 Yes 81mg Take 81 mg U nivers mg EC 2-23 by mouth ity of tablet 10:49: in the [place] [address] morning. Medical Branch metoprolol 2021-04 Yes 25mg Take 25 mg U nivers succinate 2-23 by mouth ity of XL 25 mg 24 10:49: in the [facility] tablet morning. Medica l Branch omega-3s/dh 2021-04 Yes 1{tbl} Take 1 Un lena a/epa/fish 2-23 tablet by ity of oil/D3 10:49: mouth [place] (VITAMIN-D 22 daily. Medical + OMEGA-3 Branch ORAL) lovastatin 2021-04 Yes 10mg Take 10 mg U nivers 10 mg 2-23 by mouth ity of tablet 10:49: at [place] [address] bedtime. Medical Branch amiodarone 2021-04 Yes 200mg Take 200 Un [place]ena 200 mg 2-23 mg by ity of tablet 10:49: mouth in [place] [address] the Medical morning. Branch pentoxifyll 2021-04 Yes 400mg Take 400 U nivers ine 400 mg 2-23 mg by ity of SR tablet 10:49: mouth in [facility] 22 the Medical morning Branch and 400 mg in the evening. clopidogreL 2021-04 Yes 75mg Take 75 mg Univers (PLAVIX) 75 2-23 by mouth ity of mg tablet 10:49: in the [place] [address] morning. Medical Branch isosorbide 2021-04 Yes 60mg Take 60 mg U nivers mononitrate 2-23 by mouth ity of 60 mg 24 hr 10:49: in the [facility] tablet 22 morning. Medical Branch famotidine 2021-04 Yes 20mg Take 20 mg U nivers 20 mg 2-23 by mouth ity of tablet 10:49: in the [place] [address] morning Medical and 20 mg Branch in the evening. aspirin 81 2021-04 Yes 81mg Take 81 mg U nivers mg EC 2-23 by mouth ity of tablet 10:49: in the [place] [address] morning. Medical Branch metoprolol 2021-04 Yes 25mg Take 25 mg U nivers succinate 2-23 by mouth ity of XL 25 mg 24 10:49: in the [facility] hr tablet 22 morning. Medica l Branch omega-3s/dh 2021-04 Yes 1{tbl} Take 1 Un lena a/epa/fish 2-23 tablet by ity of oil/D3 10:49: mouth [place] (VITAMIN-D 22 daily. Medical + OMEGA-3 Branch ORAL) lovastatin 2021-04 Yes 10mg Take 10 mg U nivers 10 mg 2-23 by mouth ity of tablet 10:49: at [place] [address] bedtime. Medical Branch amiodarone 2021-04 Yes 200mg Take 200 Un lena 200 mg 2-23 mg by ity of tablet 10:49: mouth in [place] 22 the Medical morning. Branch pentoxifyll 2021-04 Yes 400mg Take 400 U nivers ine 400 mg 2-23 mg by ity of SR tablet 10:49: mouth in [facility] 22 the Medical morning Branch and 400 mg in the evening. clopidogreL 2021-04 Yes 75mg Take 75 mg Univers (PLAVIX) 75 2-23 by mouth ity of mg tablet 10:49: in the [place] [address] morning. Medical Branch isosorbide 2021-04 Yes 60mg Take 60 mg U nivers mononitrate 2-23 by mouth ity of 60 mg 24 hr 10:49: in the [facility] tablet 22 morning. Medical Branch famotidine 2021-04 Yes 20mg Take 20 mg U nivers 20 mg 2-23 by mouth ity of tablet 10:49: in the [place] 22 morning Medical and 20 mg Branch in the evening. aspirin 81 2021-04 Yes 81mg Take 81 mg U nivers mg EC 2-23 by mouth ity of tablet 10:49: in the [place] 22 morning. Medical Branch metoprolol 2021-04 Yes 25mg Take 25 mg U nivers succinate 2-23 by mouth ity of XL 25 mg 24 10:49: [place] 22 morning. Medica l Branch omega-3s/dh 2021-04 Yes 1{tbl} Take 1 Un lena a/epa/fish 2-23 tablet by ity of oil/D3 10:49: mouth [place] (VITAMIN-D 22 daily. Medical + OMEGA-3 Branch ORAL) lovastatin 2021-04 Yes 10mg Take 10 mg U nivers 10 mg 2-23 by mouth ity of tablet 10:49: at [place] 22 bedtime. Medical Branch amiodarone 2021-04 Yes 200mg Take 200 Un lena 200 mg 2-23 mg by ity of tablet 10:49: mouth in [place] 22 the Medical morning. Branch pentoxifyll 2021-04 Yes 400mg Take 400 U nivers ine 400 mg 2-23 mg by ity of SR tablet 10:49: mouth in [facility] 22 the Medical morning Branch and 400 mg in the evening. isosorbide 2021-04 Yes 60mg Take 60 mg U nivers mononitrate 2-23 by mouth ity of 60 mg 24 hr 10:49: in the [facility] s tablet 22 morning. Medical Branch famotidine 2021-04 Yes 20mg Take 20 mg U nivers 20 mg 2-23 by mouth ity of tablet 10:49: in the [place] 22 morning Medical and 20 mg Branch in the evening. aspirin 81 2021-04 Yes 81mg Take 81 mg U nivers mg EC 2-23 by mouth ity of tablet 10:49: in the [place] 22 morning. Medical Branch metoprolol 2021-04 Yes 25mg Take 25 mg U nivers succinate 2-23 by mouth ity of XL 25 mg 24 10:49: [place] 22 morning. Medica l Branch omega-3s/dh 2021-04 Yes 1{tbl} Take 1 Un lena a/epa/fish 2-23 tablet by ity of oil/D3 10:49: mouth [place] (VITAMIN-D 22 daily. Medical + OMEGA-3 Branch ORAL) lovastatin 2021-04 Yes 10mg Take 10 mg U nivers 10 mg 2-23 by mouth ity of tablet 10:49: at [place] [address] bedtime. Medical Branch pentoxifyll 2021-04 Yes 400mg Take 400 U nivers ine 400 mg 2-23 mg by ity of SR tablet 10:49: mouth in [facility] 22 the Medical morning Branch and 400 mg in the evening. famotidine 2021-04 Yes 20mg Take 20 mg U nivers 20 mg 2-23 by mouth ity of tablet 10:49: in the [place] [address] morning Medical and 20 mg Branch in the evening. omega-3s/dh 2021-04 Yes 1{tbl} Take 1 Un lena a/epa/fish 2-23 tablet by ity of oil/D3 10:49: mouth [place] (VITAMIN-D 22 daily. Medical + OMEGA-3 Branch ORAL) pentoxifyll 2021-04 Yes 400mg Take 400 U nivers ine 400 mg 2-23 mg by ity of SR tablet 10:49: mouth in [place] [id number] the Medical morning Branch and 400 mg in the evening. famotidine 2021-04 Yes 20mg Take 20 mg U nivers 20 mg 2-23 by mouth ity of tablet 10:49: in the [place] [address] morning Medical and 20 mg Branch in the evening. omega-3s/dh 2021-04 Yes 1{tbl} Take 1 Un lena a/epa/fish 2-23 tablet by ity of oil/D3 10:49: mouth [place] (VITAMIN-D 22 daily. Medical + OMEGA-3 Branch ORAL) pentoxifyll 2021-04 Yes 400mg Take 400 U nivers ine 400 mg 2-23 mg by ity of SR tablet 10:49: mouth in [facility] 22 the Medical morning Branch and 400 mg in the evening. famotidine 2021-04 Yes 20mg Take 20 mg U nivers 20 mg 2-23 by mouth ity of tablet 10:49: in the [place] [address] morning Medical and 20 mg Branch in the evening. omega-3s/dh 2021-04 Yes 1{tbl} Take 1 Un lena a/epa/fish 2-23 tablet by ity of oil/D3 10:49: mouth [place] (VITAMIN-D 22 daily. Medical + OMEGA-3 Branch ORAL) pentoxifyll 2021-04 Yes 400mg Take 400 U nivers ine 400 mg 2-23 mg by ity of SR tablet 10:49: mouth in [place] [address] the Medical morning Branch and 400 mg in the evening. famotidine 2021-04 Yes 20mg Take 20 mg U nivers 20 mg 2-23 by mouth ity of tablet 10:49: in the [place] [address] morning Medical and 20 mg Branch in the evening. omega-3s/dh 2021-04 Yes 1{tbl} Take 1 Un lena a/epa/fish 2-23 tablet by ity of oil/D3 10:49: mouth [place] (VITAMIN-D 22 daily. Medical + OMEGA-3 Branch ORAL) pentoxifyll 2021-04 Yes 400mg Take 400 U nivers ine 400 mg 2-23 mg by ity of SR tablet 10:49: mouth in [place] [address] the Medical morning Branch and 400 mg in the evening. famotidine 2021-04 Yes 20mg Take 20 mg U nivers 20 mg 2-23 by mouth ity of tablet 10:49: in the [place] [address] morning Medical and 20 mg Branch in the evening. omega-3s/dh 2021-04 Yes 1{tbl} Take 1 Un lena a/epa/fish 2-23 tablet by ity of oil/D3 10:49: mouth [place] (VITAMIN-D 22 daily. Medical + OMEGA-3 Branch ORAL) pentoxifyll 2021-04 Yes 400mg Take 400 U nivers ine 400 mg 2-23 mg by ity of SR tablet 10:49: mouth in [place] [address] the Medical morning Branch and 400 mg in the evening. famotidine 2021-04 Yes 20mg Take 20 mg U nivers 20 mg 2-23 by mouth ity of tablet 10:49: in the [place] [address] morning Medical and 20 mg Branch in the evening. omega-3s/dh 2021-04 Yes 1{tbl} Take 1 Un lena a/epa/fish 2-23 tablet by ity of oil/D3 10:49: mouth [place] (VITAMIN-D 22 daily. Medical + OMEGA-3 Branch ORAL) pentoxifyll 2021-04 Yes 400mg Take 400 U nivers ine 400 mg 2-23 mg by ity of SR tablet 10:49: [place] 22 the Medical morning Branch and 400 mg in the evening. famotidine 2021-04 Yes 20mg Take 20 mg U nivers 20 mg 2-23 by mouth ity of tablet 10:49: in the [place] 22 morning Medical and 20 mg Branch in the evening. omega-3s/dh 2021-04 Yes 1{tbl} Take 1 Un lena a/epa/fish 2-23 tablet by ity of oil/D3 10:49: mouth [place] (VITAMIN-D 22 daily. Medical + OMEGA-3 Branch ORAL) pentoxifyll 2021-04 Yes 400mg Take 400 U nivers ine 400 mg 2-23 mg by ity of SR tablet 10:49: mouth in [facility] 22 the Medical morning Branch and 400 mg in the evening. famotidine 2021-04 Yes 20mg Take 20 mg U nivers 20 mg 2-23 by mouth ity of tablet 10:49: in the [place] [address] morning Medical and 20 mg Branch in the evening. omega-3s/dh 2021-04 Yes 1{tbl} Take 1 Un lena a/epa/fish 2-23 tablet by ity of oil/D3 10:49: mouth [place] (VITAMIN-D 22 daily. Medical + OMEGA-3 Branch ORAL) pentoxifyll 2021-04 Yes 400mg Take 400 U nivers ine 400 mg 2-23 mg by ity of SR tablet 10:49: mouth in [place] [address] the Medical morning Branch and 400 mg in the evening. famotidine 2021-04 Yes 20mg Take 20 mg U nivers 20 mg 2-23 by mouth ity of tablet 10:49: in the [place] [address] morning Medical and 20 mg Branch in the evening. omega-3s/dh 2021-04 Yes 1{tbl} Take 1 Un lena a/epa/fish 2-23 tablet by ity of oil/D3 10:49: mouth [place] (VITAMIN-D 22 daily. Medical + OMEGA-3 Branch ORAL) pentoxifyll 2021-04 Yes 400mg Take 400 U nivers ine 400 mg 2-23 mg by ity of SR tablet 10:49: mouth in [facility] 22 the Medical morning Branch and 400 mg in the evening. famotidine 2021-04 Yes 20mg Take 20 mg U nivers 20 mg 2-23 by mouth ity of tablet 10:49: in the [place] 22 morning Medical and 20 mg Branch in the evening. omega-3s/dh 2021-04 Yes 1{tbl} Take 1 Un lena a/epa/fish 2-23 tablet by ity of oil/D3 10:49: mouth [place] (VITAMIN-D 22 daily. Medical + OMEGA-3 Branch ORAL) pentoxifyll 2021-04 Yes 400mg Take 400 U nivers ine 400 mg 2-23 mg by ity of SR tablet 10:49: mouth in [facility] 22 the Medical morning Branch and 400 mg in the evening. famotidine 2021-04 Yes 20mg Take 20 mg U nivers 20 mg 2-23 by mouth ity of tablet 10:49: in the [place] 22 morning Medical and 20 mg Branch in the evening. omega-3s/dh 2021-04 Yes 1{tbl} Take 1 Un lena a/epa/fish 2-23 tablet by ity of oil/D3 10:49: mouth [place] (VITAMIN-D 22 daily. Medical + OMEGA-3 Branch ORAL) pentoxifyll 2021-04 Yes 400mg Take 400 U nivers ine 400 mg 2-23 mg by ity of SR tablet 10:49: mouth in [place] [address] the Medical morning Branch and 400 mg in the evening. famotidine 2021-04 Yes 20mg Take 20 mg U nivers 20 mg 2-23 by mouth ity of tablet 10:49: in the [place] [address] morning Medical and 20 mg Branch in the evening. omega-3s/dh 2021-04 Yes 1{tbl} Take 1 Un lena a/epa/fish 2-23 tablet by ity of oil/D3 10:49: mouth [place] (VITAMIN-D 22 daily. Medical + OMEGA-3 Branch ORAL) pentoxifyll 2021-04 Yes 400mg Take 400 U nivers ine 400 mg 2-23 mg by ity of SR tablet 10:49: mouth in [facility] 22 the Medical morning Branch and 400 mg in the evening. famotidine 2021-04 Yes 20mg Take 20 mg U nivers 20 mg 2-23 by mouth ity of tablet 10:49: in the [place] [address] morning Medical and 20 mg Branch in the evening. omega-3s/dh 2021-04 Yes 1{tbl} Take 1 Un lena a/epa/fish 2-23 tablet by ity of oil/D3 10:49: mouth [place] (VITAMIN-D 22 daily. Medical + OMEGA-3 Branch ORAL) pentoxifyll 2021-04 Yes 400mg Take 400 U nivers ine 400 mg 2-23 mg by ity of SR tablet 10:49: mouth in [facility] 22 the Medical morning Branch and 400 mg in the evening. famotidine 2021-04 Yes 20mg Take 20 mg U nivers 20 mg 2-23 by mouth ity of tablet 10:49: in the [place] 22 morning Medical and 20 mg Branch in the evening. omega-3s/dh 2021-04 Yes 1{tbl} Take 1 Un lena a/epa/fish 2-23 tablet by ity of oil/D3 10:49: mouth [place] (VITAMIN-D 22 daily. Medical + OMEGA-3 Branch ORAL) pentoxifyll 2021-04 Yes 400mg Take 400 U nivers ine 400 mg 2-23 mg by ity of SR tablet 10:49: mouth in [facility] 22 the Medical morning Branch and 400 mg in the evening. famotidine 2021-04 Yes 20mg Take 20 mg U nivers 20 mg 2-23 by mouth ity of tablet 10:49: in the [place] 22 morning Medical and 20 mg Branch in the evening. omega-3s/dh 2021-04 Yes 1{tbl} Take 1 Un lena a/epa/fish 2-23 tablet by ity of oil/D3 10:49: mouth [place] (VITAMIN-D 22 daily. Medical + OMEGA-3 Branch ORAL) pentoxifyll 2021-04 Yes 400mg Take 400 U nivers ine 400 mg 2-23 mg by ity of SR tablet 10:49: mouth in [place] [address] the Medical morning Branch and 400 mg in the evening. famotidine 2021-04 Yes 20mg Take 20 mg U nivers 20 mg 2-23 by mouth ity of tablet 10:49: in the [place] 22 morning Medical and 20 mg Branch in the evening. omega-3s/dh 2021-04 Yes 1{tbl} Take 1 Un lena a/epa/fish 2-23 tablet by ity of oil/D3 10:49: mouth [place] (VITAMIN-D 22 daily. Medical + OMEGA-3 Branch ORAL) amiodarone 2021-04 Yes 200mg Take 200 Un lena 200 mg 2-23 mg by ity of tablet 10:49: mouth in [place] [address] the Medical morning. Branch pentoxifyll 2021-04 Yes 400mg Take 400 U nivers ine 400 mg 2-23 mg by ity of SR tablet 10:49: mouth in [place] [address] the Medical morning Branch and 400 mg in the evening. famotidine 2021-04 Yes 20mg Take 20 mg U nivers 20 mg 2-23 by mouth ity of tablet 10:49: in the [place] [address] morning Medical and 20 mg Branch in the evening. pentoxifyll 2021-04 Yes 400mg Take 400 U nivers ine 400 mg 2-23 mg by ity of SR tablet 10:49: mouth in [place] [address] the Medical morning Branch and 400 mg in the evening. omega-3s/dh 2021-04 Yes 1{tbl} Take 1 Un lena a/epa/fish 2-23 tablet by ity of oil/D3 10:49: mouth [place] (VITAMIN-D 22 daily. Medical + OMEGA-3 Branch ORAL) pentoxifyll 2021-04 Yes 400mg Take 400 U nivers ine 400 mg 2-23 mg by ity of SR tablet 10:49: mouth in [place] [address] the Medical morning Branch and 400 mg in the evening. famotidine 2021-04 Yes 20mg Take 20 mg U nivers 20 mg 2-23 by mouth ity of tablet 10:49: in the [place] [address] morning Medical and 20 mg Branch in the evening. clopidogreL 2021-04 Yes 75mg Take 75 mg [facility] (PLAVIX) 75 2-23 by mouth ity of mg tablet 10:49: in the [place] [address] morning. Medical Branch omega-3s/dh 2021- Yes 1{tbl} Take 1 Un lena a/epa/fish 2-23 tablet by ity of oil/D3 10:49: mouth [place] (VITAMIN-D 22 daily. Medical + OMEGA-3 Branch ORAL) pentoxifyll 2021-04 Yes 400mg Take 400 U nivers ine 400 mg 2-23 mg by ity of SR tablet 10:49: mouth in [place] [address] the Medical morning Branch and 400 mg in the evening. isosorbide 2021-04 Yes 60mg Take 60 mg U nivers mononitrate 2-23 by mouth ity of 60 mg 24 hr 10:49: in the [place] [address] morning. Medical Branch famotidine 2021-04 Yes 20mg Take 20 mg U nivers 20 mg 2-23 by mouth ity of tablet 10:49: in the [place] 22 morning Medical and 20 mg Branch in the evening. omega-3s/dh 2021-04 Yes 1{tbl} Take 1 Un lena a/epa/fish 2-23 tablet by ity of oil/D3 10:49: mouth [place] (VITAMIN-D 22 daily. Medical + OMEGA-3 Branch ORAL) famotidine 2021-04 Yes 20mg Take 20 mg U nivers 20 mg 2-23 by mouth ity of tablet 10:49: in the [place] 22 morning Medical and 20 mg Branch in the evening. pentoxifyll 2021-04 Yes 400mg Take 400 U nivers ine 400 mg 2-23 mg by ity of SR tablet 10:49: mouth in [facility] 22 the Medical morning Branch and 400 mg in the evening. famotidine 2021-04 Yes 20mg Take 20 mg U nivers 20 mg 2-23 by mouth ity of tablet 10:49: in the [place] [address] morning Medical and 20 mg Branch in the evening. omega-3s/dh 2021-04 Yes 1{tbl} Take 1 Un lena a/epa/fish 2-23 tablet by ity of oil/D3 10:49: mouth [place] (VITAMIN-D 22 daily. Medical + OMEGA-3 Branch ORAL) aspirin 81 2021-04 Yes 81mg Take 81 mg U nivers mg EC 2-23 by mouth ity of tablet 10:49: in the [place] [address] morning. Medical Branch metoprolol 2021-04 Yes 25mg Take 25 mg U nivers succinate 2-23 by mouth ity of XL 25 mg 24 10:49: in the [facility] hr tablet 22 morning. Medica l Branch pentoxifyll 2021-04 Yes 400mg Take 400 U nivers ine 400 mg 2-23 mg by ity of SR tablet 10:49: mouth in [facility] 22 the Medical morning Branch and 400 mg in the evening. famotidine 2021-04 Yes 20mg Take 20 mg U nivers 20 mg 2-23 by mouth ity of tablet 10:49: in the [place] 22 morning Medical and 20 mg Branch in the evening. omega-3s/dh 2021-04 Yes 1{tbl} Take 1 Un lena a/epa/fish 2-23 tablet by ity of oil/D3 10:49: mouth [place] (VITAMIN-D 22 daily. Medical + OMEGA-3 Branch ORAL) omega-3s/dh 2021-04 Yes 1{tbl} Take 1 Un lena a/epa/fish 2-23 tablet by ity of oil/D3 10:49: mouth [place] (VITAMIN-D 22 daily. Medical + OMEGA-3 Branch ORAL) pentoxifyll 2021-04 Yes 400mg Take 400 U nivers ine 400 mg 2-23 mg by ity of SR tablet 10:49: mouth in [facility] 22 the Medical morning Branch and 400 mg in the evening. famotidine 2021-04 Yes 20mg Take 20 mg U nivers 20 mg 2-23 by mouth ity of tablet 10:49: in the [place] 22 morning Medical and 20 mg Branch in the evening. lovastatin 2021-04 Yes 10mg Take 10 mg U nivers 10 mg 2-23 by mouth ity of tablet 10:49: at [place] [address] bedtime. Medical Branch omega-3s/dh 2021-04 Yes 1{tbl} Take 1 Un lena a/epa/fish 2-23 tablet by ity of oil/D3 10:49: mouth [place] (VITAMIN-D 22 daily. Medical + OMEGA-3 Branch ORAL) famotidine 2021-04 Yes 20mg Take 20 mg U nivers 20 mg 2-23 by mouth ity of tablet 10:49: in the [place] 22 morning Medical and 20 mg Branch in the evening. omega-3s/dh 2021-04 Yes 1{tbl} Take 1 Un lena a/epa/fish 2-23 tablet by ity of oil/D3 10:49: mouth [place] (VITAMIN-D 22 daily. Medical + OMEGA-3 Branch ORAL) famotidine 2021-04 Yes 20mg Take 20 mg U nivers 20 mg 2-23 by mouth ity of tablet 10:49: in the [place] 22 morning Medical and 20 mg Branch in the evening. omega-3s/dh 2021-04 Yes 1{tbl} Take 1 Un lena a/epa/fish 2-23 tablet by ity of oil/D3 10:49: mouth [place] (VITAMIN-D 22 daily. Medical + OMEGA-3 Branch ORAL) famotidine 2021-04 Yes 20mg Take 20 mg U nivers 20 mg 2-23 by mouth ity of tablet 10:49: in the [place] 22 morning Medical and 20 mg Branch in the evening. omega-3s/dh 2021-04 Yes 1{tbl} Take 1 Un lena a/epa/fish 2-23 tablet by ity of oil/D3 10:49: mouth [place] (VITAMIN-D 22 daily. Medical + OMEGA-3 Branch ORAL) famotidine 2021-04 Yes 20mg Take 20 mg U nivers 20 mg 2-23 by mouth ity of tablet 10:49: in the [place] 22 morning Medical and 20 mg Branch in the evening. omega-3s/dh 2021-04 Yes 1{tbl} Take 1 Un lena a/epa/fish 2-23 tablet by ity of oil/D3 10:49: mouth [place] (VITAMIN-D 22 daily. Medical + OMEGA-3 Branch ORAL) famotidine 2021-04 Yes 20mg Take 20 mg U nivers 20 mg 2-23 by mouth ity of tablet 10:49: in the [place] [address] morning Medical and 20 mg Branch in the evening. omega-3s/dh 2021-04 Yes 1{tbl} Take 1 Un lena a/epa/fish 2-23 tablet by ity of oil/D3 10:49: mouth [place] (VITAMIN-D 22 daily. Medical + OMEGA-3 Branch ORAL) amiodarone 2021-04 Yes 200mg Take 200 Un lena 200 mg 2-23 mg by ity of tablet 10:49: mouth in [place] [address] the Medical morning. Branch pentoxifyll 2021-04 Yes 400mg Take 400 U nivers ine 400 mg 2-23 mg by ity of SR tablet 10:49: mouth in [facility] 22 the Medical morning Branch and 400 mg in the evening. famotidine 2021-04 Yes 20mg Take 20 mg U nivers 20 mg 2-23 by mouth ity of tablet 10:49: in the [place] 22 morning Medical and 20 mg Branch in the evening. omega-3s/dh 2021-04 Yes 1{tbl} Take 1 Un lena a/epa/fish 2-23 tablet by ity of oil/D3 10:49: mouth [place] (VITAMIN-D 22 daily. Medical + OMEGA-3 Branch ORAL) clopidogreL 2021-04 Yes 75mg Take 75 mg [facility] (PLAVIX) 75 2-23 by mouth ity of mg tablet 10:49: in the [place] 22 morning. Medical Branch isosorbide 2021-04 Yes 60mg Take 60 mg U nivers mononitrate 2-23 by mouth ity of 60 mg 24 hr 10:49: [place] tablet [place] morning. Medical Branch famotidine 2021-04 Yes 20mg Take 20 mg U nivers 20 mg 2-23 by mouth ity of tablet 10:49: in the [place] 22 morning Medical and 20 mg Branch in the evening. omega-3s/dh 2021-04 Yes 1{tbl} Take 1 Un lena a/epa/fish 2-23 tablet by ity of oil/D3 10:49: mouth [place] (VITAMIN-D 22 daily. Medical + OMEGA-3 Branch ORAL) famotidine 2021-04 Yes 20mg Take 20 mg U nivers 20 mg 2-23 by mouth ity of tablet 10:49: in the 22 morning Medical and 20 mg Branch in the evening. famotidine 2021-04 Yes 20mg Take 20 mg U nivers 20 mg 2-23 by mouth ity of tablet 10:49: in the 22 morning Medical and 20 mg Branch in the evening. omega-3s/dh 2021-04 Yes 1{tbl} Take 1 Un lena a/epa/fish 2-23 tablet by ity of oil/D3 10:49: mouth [place] (VITAMIN-D 22 daily. Medical + OMEGA-3 Branch ORAL) aspirin 81 2021-04 Yes 81mg Take 81 mg U nivers mg EC 2-23 by mouth ity of tablet 10:49: in the [place] 22 morning. Medical Branch famotidine 2021-04 Yes 20mg Take 20 mg U nivers 20 mg 2-23 by mouth ity of tablet 10:49: in the 22 morning Medical and 20 mg Branch in the evening. metoprolol 2021-04 Yes 25mg Take 25 mg U nivers succinate 2-23 by mouth ity of XL 25 mg 24 10:49: in the [facility] s hr tablet 22 morning. Medica l Branch omega-3s/dh 2021-04 Yes 1{tbl} Take 1 Un lena a/epa/fish 2-23 tablet by ity of oil/D3 10:49: mouth [place] (VITAMIN-D 22 daily. Medical + OMEGA-3 Branch ORAL) omega-3s/dh 2021-04 Yes 1{tbl} Take 1 Un lena a/epa/fish 2-23 tablet by ity of oil/D3 10:49: mouth [place] (VITAMIN-D 22 daily. Medical + OMEGA-3 Branch ORAL) famotidine 2021-04 Yes 20mg Take 20 mg U nivers 20 mg 2-23 by mouth ity of tablet 10:49: in the [place] 22 morning Medical and 20 mg Branch in the evening. omega-3s/dh 2021-04 Yes 1{tbl} Take 1 Un lena a/epa/fish 2-23 tablet by ity of oil/D3 10:49: mouth [place] (VITAMIN-D 22 daily. Medical + OMEGA-3 Branch ORAL) lovastatin 2021-04 Yes 10mg Take 10 mg U nivers 10 mg 2-23 by mouth ity of tablet 10:49: at [place] [address] bedtime. Medical Branch famotidine 2021-04 Yes 20mg Take 20 mg U nivers 20 mg 2-23 by mouth ity of tablet 10:49: in the [place] 22 morning Medical and 20 mg Branch in the evening. omega-3s/dh 2021-04 Yes 1{tbl} Take 1 Un lena a/epa/fish 2-23 tablet by ity of oil/D3 10:49: mouth [place] (VITAMIN-D 22 daily. Medical + OMEGA-3 Branch ORAL) famotidine 2021-04 Yes 20mg Take 20 mg U nivers 20 mg 2-23 by mouth ity of tablet 10:49: in the [place] 22 morning Medical and 20 mg Branch in the evening. omega-3s/dh 2021-04 Yes 1{tbl} Take 1 Un lena a/epa/fish 2-23 tablet by ity of oil/D3 10:49: mouth [place] (VITAMIN-D 22 daily. Medical + OMEGA-3 Branch ORAL) amiodarone 2021-04 Yes 200mg Take 200 Un lena 200 mg 2-23 mg by ity of tablet 10:49: mouth in [place] 22 the Medical morning. Branch pentoxifyll 2021-04 Yes 400mg Take 400 U nivers ine 400 mg 2-23 mg by ity of SR tablet 10:49: mouth in [facility] 22 the Medical morning Branch and 400 mg in the evening. clopidogreL 2021-04 Yes 75mg Take 75 mg [facility] (PLAVIX) 75 2-23 by mouth ity of mg tablet 10:49: in the [place] 22 morning. Medical Branch isosorbide 2021-04 Yes 60mg Take 60 mg U nivers mononitrate 2-23 by mouth ity of 60 mg 24 hr 10:[place]: [place] morning. Medical Branch famotidine 2021-04 Yes 20mg Take 20 mg U nivers 20 mg 2-23 by mouth ity of tablet 10:49: in the [place] 22 morning Medical and 20 mg Branch in the evening. aspirin 81 2021-04 Yes 81mg Take 81 mg U nivers mg EC 2-23 by mouth ity of tablet 10:49: in the [place] 22 morning. Medical Branch metoprolol 2021-04 Yes 25mg Take 25 mg U nivers succinate 2-23 by mouth ity of XL 25 mg 24 10:49: [facility] morning. Medica l Branch omega-3s/dh 2021-04 Yes 1{tbl} Take 1 Un lena a/epa/fish 2-23 tablet by ity of oil/D3 10:49: mouth [place] (VITAMIN-D 22 daily. Medical + OMEGA-3 Branch ORAL) lovastatin 2021-04 Yes 10mg Take 10 mg U nivers 10 mg 2-23 by mouth ity of tablet 10:49: at [place] 22 bedtime. Medical Branch amiodarone 2021-04 Yes 200mg Take 200 Un lena 200 mg 2-23 mg by ity of tablet 10:49: mouth in [place] 22 the Medical morning. Branch amiodarone 2022- No 200mg QD Take 1 [...] 25mg QD Take [address] [facility] succinate 06-16 tablet (25 [facility] (TOPROL-XL) 00:00: 23:59 mg total) Medical 25 MG 24 hr 00 :00 by mouth Cent er tablet daily. amiodarone 2022- No 200mg QD Take 1 [...] 25mg QD Take [address] [facility] succinate 06-16 tablet (25 [facility] (TOPROL-XL) 00:00: 23:59 mg total) Medical 25 MG 24 hr 00 :00 by mouth Cent er tablet daily. aspirin 81 0 Yes 81mg QD Take [address] MG EC 3-10 by mouth [facility] tablet 17:14: daily. [place] [id number] Center clopidogreL 0 Yes 75mg QD Take [address] [facility] (PLAVIX) 75 3-10 by mouth [facility] mg tablet 17:14: daily. Medica l Center atorvastati 0 Yes 20mg QD Take [address] [facility] n (LIPITOR) 3-10 by mouth [facility] 20 MG 17:14: daily. Medical tablet Center dapaglifloz Yes 10mg QD Take [address] [facility] in 3-10 by mouth [facility] (Farxiga) 17:14: daily. Medica l 10 mg 51 Center tablet aspirin 81 0 Yes 81mg QD Take 81 mg C [...] MG tablet 46 :00 daily. Center metoprolol 2021- No 25mg Q.5D Take 25 mg [facility] [...] 2.5mg Take [address] (Xarelto) 3-01 03-10 tablet [facility] 2.5 mg Tab 00:00: 00:00 (2.5 mg Med ical tablet 00 :00 total) by Center mouth 2 (two) times daily with breakfast and dinner Resume on 06/06 evening. pregabalin No 100mg QD Take [address] (LYRICA) 2-28 02-28 mg by [facility] 100 MG 14:15: 00:00 mouth Medical capsule 25 :00 nightly. Center pentoxifyll 2020-04 Yes 400mg Q.5D Take [address] ine 2-31 mg by [facility] (TRENTAL) 00:00: mouth 2 Medic al 400 mg CR 00 (two) Center tablet times daily. pentoxifyll 2020-04 Yes 400mg Q.5D Take [address] ine 2-31 mg by [facility] (TRENTAL) 00:00: mouth 2 Medic al 400 mg CR 00 (two) Center tablet times daily. pantoprazol No 40mg QD Take [address] [facility] e 6-24 01-31 tablet (40 [facility] (PROTONIX) 00:00: 00:00 mg total) M edical 40 MG 00 :00 by mouth Center tablet daily. methyl 2020-0 Yes 5g Apply [address] [facility] salicylate- 6-23 topically [place] [facility] menthol 00:00: 3 (three) Medic al 15-10 % 00 times Center Crea daily as needed. lancets-blo 2020-0 Yes 1{each} [address] [facility] od glucose 6-23 Miscellane [facility] strips 30 00:00: ous route Med ical gauge Cmpk 00 daily as Cente r needed. glucometer 2020-0 Yes 1{each} [address] [facility] (FREESTYLE) 6-23 Other - [facility] Misc 00:00: See Admin Medical 00 Instructio Center ns route daily as needed for up to 1 day One. methyl 2020-0 Yes 5g Apply [address] [facility] salicylate- 6-23 topically [place] es menthol 00:00: 3 (three) Medic al 15-10 % 00 times Center Crea daily as needed. lancets-blo 2020-0 Yes 1{each} [address] [facility] od glucose 6-23 Miscellane [place] [facility] strips 30 00:00: ous route Med ical gauge Cmpk 00 daily as Cente r needed. glucometer 2020-0 Yes 1{each} [address] [facility] (FREESTYLE) 6-23 Other - [facility] Misc 00:00: See Admin Medical 00 Instructio Center ns route daily as needed for up to 1 day One. tamsulosin 2021- No .4mg QD Take [address] [facility] (FLOMAX) 605-08 capsule [facility] 0.4 mg Cap 00:00: 00:00 (0.4 mg Med ical 24 hr 00 :00 total) by Center capsule mouth nightly. Immunizations Ordered Filled Immunization Date Status Comments Sour e Immunization Name Name Pneumococcal 2019-09-[address] [facility] (Prevnar) 00:[facility]00 [facility] Pneumococcal Unknown Completed [facility] Conjugate (Prevnar) Medic ca [facility] Vital Signs Vital Name Observation Time Observation Value Comments Source HEIGHT 2019-09-18 00:00:00 157.7 cm WEIGHT 2019-09-18 00:00:00 70.852 kg HEIGHT 2019-09-11 00:00:00 157.5 cm WEIGHT 2019-09-11 00:00:00 79.833 kg Systolic blood 2023-01-17 20:58:00 134 mm[Hg] [facility] Diastolic blood 2023-01-17 20:58:00 53 mm[Hg] [facility]ive [facility] Heart rate 2023-01-17 20:58:00 66 /min [facility] Body height 2023-01-17 20:58:00 157.5 cm [facility] Body weight 2023-01-17 20:58:00 55.157 kg [facility] BMI 2023-01-17 20:58:00 22.24 kg/m2 [facility] Oxygen saturation in 2023-01-17 20:58:00 96 /min [facility] Arterial blood by [facility] Pulse oximetry Branch Systolic blood 2022-11-06 15:56:00 142 mm[Hg] [facility]iver [facility] of [facility] Diastolic blood 2022-11-06 15:56:00 62 mm[Hg] [facility] Heart rate 2022-11-06 15:48:00 58 /min [facility] Respiratory rate 2022-11-06 15:48:00 18 /min [facility] Body weight 2022-11-06 15:48:00 60.328 kg [facility] [place] [facility] BMI 2022-11-06 15:48:00 24.33 kg/m2 [facility] [place] [facility] Oxygen saturation in 2022-11-06 15:48:00 97 /min [facility] of Arterial blood by [facility] Pulse oximetry Branch Systolic blood 2022-09-14 16:53:00 117 mm[Hg] Univer sity of [facility] [place] [facility] Diastolic blood 2022-09-14 16:53:00 48 mm[Hg] Unive rsity of pressure [place] [facility] Heart rate 2022-09-14 16:53:00 50 /min [facility] [place] [facility] Oxygen saturation in 2022-09-14 16:53:00 97 /min [facility] Arterial blood by [facility] Pulse oximetry Branch Body temperature 2022-09-14 16:50:00 36.5 Mercedes [facility] [place] [facility] Respiratory rate 2022-09-14 16:50:00 17 /min [facility] [place] [facility] Body height 2022-09-14 16:50:00 157.5 cm [facility] [place] [facility] Body weight 2022-09-14 16:50:00 60.192 kg [facility] [place] [facility] BMI 2022-09-14 16:50:00 24.27 kg/m2 [facility] [place] [facility] Systolic blood 2022-07-31 19:16:00 155 mm[Hg] Univer sity of pressure [place] [facility] Diastolic blood 2022-07-31 19:16:00 59 mm[Hg] Unive rsity of pressure [place] [facility] Heart rate 2022-07-31 19:16:00 52 /min [facility] Body height 2022-07-31 19:16:00 157.5 cm [facility] Body weight 2022-07-31 19:16:00 63.912 kg [facility] BMI 2022-07-31 19:16:00 25.77 kg/m2 [facility] Oxygen saturation in 2022-07-31 19:16:00 96 /min [facility] Arterial blood by [facility] Pulse oximetry Branch Systolic blood 2022-05-09 20:17:00 181 mm[Hg] [facility] Diastolic blood 2022-05-09 20:17:00 72 mm[Hg] [facility] Heart rate 2022-05-09 20:17:00 49 /min [facility] Respiratory rate 2022-05-09 20:17:00 17 /min [facility] Oxygen saturation in 2022-05-09 20:17:00 99 /min [facility] [place] blood by [place] [facility] deep Pulse oximetry Branch Body temperature 2022-05-09 20:14:00 36.28 Mercedes [facility] Body weight 2022-05-09 20:14:00 63.458 kg [facility] BMI 2022-05-09 20:14:00 25.59 kg/m2 [facility] Systolic blood 2022-03-30 16:51:00 162 mm[Hg] [facility] Diastolic blood 2022-03-30 16:51:00 65 mm[Hg] [facility] Heart rate 2022-03-30 16:34:00 52 /min [facility] Respiratory rate 2022-03-30 16:34:00 20 /min [facility] Body height 2022-03-30 16:34:00 157.5 cm [facility] Body weight 2022-03-30 16:34:00 61.508 kg [facility] BMI 2022-03-30 16:34:00 24.80 kg/m2 [facility] Oxygen saturation in 2022-03-30 16:34:00 98 /min [facility] Arterial blood by [place] [facility] Pulse oximetry Branch WEIGHT 2021-06-14 05:09:00 69.627 kg WEIGHT 2021-06-11 [...] cm WEIGHT 2021-05-08 11:37:00 70.308 kg HEIGHT 2019-09-18 00:00:00 157.7 cm WEIGHT 2019-09-18 00:00:00 70.852 kg HEIGHT 2019-09-11 00:00:00 157.5 cm WEIGHT 2019-09-11 00:00:00 79.833 kg Heart rate 2021-06-15 11:47:00 66 /min [facility] Systolic blood 2021-06-15 08:00:00 122 mm[Hg] [facility] Diastolic blood 2021-06-15 08:00:00 64 mm[Hg] [facility] Body temperature 2021-06-15 08:00:00 36.67 Mercedes [facility] Respiratory rate 2021-06-15 08:00:00 20 /min [facility] Oxygen saturation in 2021-06-15 08:00:00 98 /min [facility] Arterial blood by Medical Ce nter Pulse oximetry Body weight 2021-06-14 05:09:00 69.627 kg [facility] BMI 2021-06-14 05:09:00 27.19 kg/m2 [facility] Body height 2021-06-02 08:26:00 160 cm [facility] Procedures Procedure Date / Time Performing Clinician Source Performed XR CHEST 2 VW 2022-09-14 18:07:02 Rob Devi [facility] PHYSICIAN ORDERS 2022-08-21 05:01:00 Doctor Unassigned, No [facility] PHYSICIAN ORDERS 2022-08-06 05:01:00 Doctor Unassigned, No [facility] [place] [facility] EXTERNAL PROVIDER - ADC 2022-07-31 05:01:00 Doctor Unassigned, N [facility] NM MYOCARDIUM PERFUSION 2022-06-05 19:00:00 Devi, [facility]il [facility] STRESS AND REST Medical Branch NUCLEAR STRESS TEST 2022-06-05 19:00:00 Devi, Sendil [facility] CARDIOLOGY (DO NOT Medical Branc h SCHED) NM MYOCARDIUM PERFUSION 2022-06-05 19:00:00 Devi, [facility] STRESS AND REST Medical Branch NUCLEAR STRESS TEST 2022-06-05 19:00:00 Devi, Sendil [facility] CARDIOLOGY (DO NOT Medical Branc h SCHED) NUCLEAR STRESS TEST 2022-06-05 19:00:00 Devi, Sendil [facility] CARDIOLOGY (DO NOT Medical Branc h SCHED) NM MYOCARDIUM PERFUSION 2022-06-05 19:00:00 Devi, [facility] STRESS AND REST Medical [place] MYOCARDIUM PERFUSION 2022-06-05 19:00:00 Devi, [facility] STRESS AND REST Medical Branch NUCLEAR STRESS TEST 2022-06-05 19:00:00 Devi, Sendil [facility] CARDIOLOGY (DO NOT Medical Branc h SCHED) EXTERNAL PROVIDER - ADC 2022-04-20 06:01:00 Doctor Unassigned, N o [facility] EXTERNAL PROVIDER - ADC 2022-04-12 06:01:00 Doctor Unassigned, N o [facility] HB ECG ROUTINE & RHYTHM 2022-03-30 16:58:30 Marito Sendxavier [facility] ASSIGNMENT OF BENEFITS 2022-03-30 16:23:01 Doctor Unassigned, No [facility] POCT-GLUCOSE METER 2021-06-15 10:59:00 Alba Rodriguez [facility] CBC W/PLT COUNT & AUTO 2021-06-15 08:39:00 Alba Rodriguez [facility] DIFFERENTIAL [facility] CBC W/PLT COUNT & AUTO 2021-06-15 08:39:00 Michael [facility] DIFFERENTIAL [facility] POCT-GLUCOSE METER 2021-06-15 08:21:00 [facility] BASIC METABOLIC PANEL 2021-06-15 06:18:00 Harrison [facility] MAGNESIUM 2021-06-15 06:18:00 Harrison [facility] PREPARE LEUKO-REDUCED 2021-06-14 23:55:00 Suyapa Hollis [facility] POCT-GLUCOSE METER 2021-06-14 21:24:00 [facility] POCT-GLUCOSE METER 2021-06-14 16:16:00 [facility] POCT-GLUCOSE METER 2021-06-14 11:42:00 [facility] POCT-GLUCOSE METER 2021-06-14 08:23:00 [facility] BASIC METABOLIC PANEL 2021-06-14 05:59:00 Harrison [facility] MAGNESIUM 2021-06-14 05:59:00 Harrison [facility] POCT-GLUCOSE METER 2021-06-13 21:44:00 [facility] US EXTREMITY 2021-06-13 18:15:00 [facility]VASCULAR LIMITED [facility] RIGHT CBC W/PLT COUNT & AUTO 2021-06-13 17:10:00 Harrison [facility] CBC W/PLT COUNT & AUTO 2021-06-13 17:10:00 [facility] POCT-GLUCOSE METER 2021-06-13 16:02:00 Michael [facility] POCT-GLUCOSE METER 2021-06-13 12:16:00 Michael [facility] TRANSFUSE LEUKO-REDUCED 2021-06-13 09:12:00 Suyapa Hollis [facility], [facility] RED BLOOD CELLS [facility] POCT-GLUCOSE METER 2021-06-13 07:15:00 [facility] BASIC METABOLIC PANEL 2021-06-13 05:31:00 Harrison [facility] CBC (HEMOGRAM ONLY) 2021-06-13 05:31:00 Harrison [facility] MAGNESIUM 2021-06-13 05:31:00 Harrison [facility] US RENAL COMPLETE 2021-06-13 04:56:00 Ngoc Cardenas [facility] POCT-GLUCOSE METER 2021-06-12 21:17:00 [facility] W/PLT COUNT & AUTO 2021-06-12 19:40:00 John Musa [facility] DIFFERENTIAL Center TYPE AND SCREEN, 2021-06-12 19:40:00 John Musa [facility] CBC W/PLT COUNT & AUTO 2021-06-12 19:40:00 John [facility] POCT-ACT 2021-06-12 17:24:00 Courtney, [facility] POCT-ACT 2021-06-12 13:17:00 Courtney [facility] POCT-GLUCOSE METER 2021-06-12 13:06:00 Courtney, [facility] POCT-ACT 2021-06-12 11:10:00 Courtney, [facility] POCT-ACT 2021-06-12 10:28:00 Courtney, [facility] POCT-ACT 2021-06-12 10:08:00 CourtneyIsatu west [facility] CATHETERIZATION, HEART, 2021-06-12 08:40:[address] [facility], WITH PERCUTANEOUS Center CORONARY INTERVENTION POCT-GLUCOSE METER 2021-06-12 07:28:00 [facility] BASIC METABOLIC PANEL 2021-06-12 04:17:00 Chandler Terry [facility] MAGNESIUM 2021-06-12 04:17:00 Chandler Terry [facility] CBC (HEMOGRAM ONLY) 2021-06-12 04:17:00 [facility] POCT-GLUCOSE METER 2021-06-11 21:16:00 [facility] POCT-GLUCOSE METER 2021-06-11 16:44:00 [facility] HEMOGLOBIN AND 2021-06-11 12:57:00 [facility]Isatu [facility] SARS-COV2/RT-PCR ([facility] & 2021-06-11 12:39:00 Chandler Terry [facility] REF LABS) [place] POCT-GLUCOSE METER 2021-06-11 11:42:00 Courtney, [facility] POCT-GLUCOSE METER 2021-06-11 07:34:00 Courtney [facility] BASIC METABOLIC PANEL 2021-06-11 04:35:00 Chandler Terry [facility] MAGNESIUM 2021-06-11 04:35:00 Chandler Terry [facility] CBC (HEMOGRAM ONLY) 2021-06-11 04:35:00 Chandler Terry [facility] POCT-GLUCOSE METER 2021-06-10 21:08:00 [facility] POCT-GLUCOSE METER 2021-06-10 17:13:00 Courtney, [facility] URINE CULTURE 2021-06-10 13:17:00 Courtney, [facility] URINALYSIS W/ REFLEX 2021-06-10 13:17:00 Courtney, [facility] URINE CULTURE Center POCT-GLUCOSE METER 2021-06-10 11:27:00 Courtney, [facility] POCT-GLUCOSE METER 2021-06-10 07:40:00 Courtney, [facility] BASIC METABOLIC PANEL 2021-06-10 04:51:00 Chandler Terry [facility] MAGNESIUM 2021-06-10 04:51:00 [facility] CBC (HE[facility]GRAM ONLY) 2021-06-10 04:51:00 Chandler Terry [facility] POCT-GLUCOSE METER 2021-06-09 21:08:00 Courtney, [facility] POCT-GLUCOSE METER 2021-06-09 17:24:00 Courtney, [facility] POCT-GLUCOSE METER 2021-06-09 11:54:00 Courtney [facility] SARS-COV2/RT-PCR ([facility] & 2021-06-09 11:46:00 Chandler Terry [facility] REF LABS) Center HEMOGLOBIN AND 2021-06-09 11:46:00 Courtney, [facility] HEMATOCRIT Center NM MYOCARDIAL PERFUSION 2021-06-09 10:49:00 Ngoc Cardenas [facility] PET/CT (REST & STRESS) Center TREADMILL 2021-06-09 10:45:41 Unknown, Hl7 [facility] TOLERANCE(NON-NUCLEAR Center TREADMILL) ECG 12-LEAD 2021-06-09 10:34:21 Unknown, Hl7 [facility] ECG 12-LEAD 2021-06-09 10:34:21 Unknown, Hl7 [facility] POCT-GLUCOSE METER 2021-06-09 07:17:00 CourtneyIsatu lorraine [facility] BASIC METABOLIC PANEL 2021-06-09 03:16:00 Chandler Terry [facility] MAGNESIUM 2021-06-09 03:16:00 [facility] CBC (HEMOGRAM ONLY) 2021-06-09 03:16:00 Chandler Terry [facility] POCT-GLUCOSE METER 2021-06-08 21:22:00 [facility] TSH/FREE T4 IF INDICATED 2021-06-08 18:03:00 SenNgoc [facility] HEMOGLOBIN AND 2021-06-08 18:03:00 [facility] POCT-GLUCOSE METER 2021-06-08 17:16:00 [facility] POCT-GLUCOSE METER 2021-06-08 11:23:00 Courtney [facility] POCT-GLUCOSE METER 2021-06-08 07:29:00 Courtney [facility] BASIC METABOLIC PANEL 2021-06-08 04:27:00 Chandler Terry [facility] MAGNESIUM 2021-06-08 04:27:00 Chandler Terry [facility] CBC (HEMOGRAM ONLY) 2021-06-08 04:27:00 [facility] POCT-GLUCOSE METER 2021-06-07 20:54:00 Courtney [facility] HEMOGLOBIN AND 2021-06-07 20:25:00 Courtney [facility] POCT-GLUCOSE METER 2021-06-07 17:03:00 Courtney [facility] HEMOGLOBIN AND 2021-06-07 15:10:00 Courtney, [facility] HEMATOCRIT Center POCT-GLUCOSE METER 2021-06-07 12:42:00 Courtney, [facility] 2D ECHO W/ DOPPLER 2021-06-07 12:05:45 [facility] ([facility] Center POCT-GLUCOSE METER 2021-06-07 07:30:00 Courtney, [facility] BASIC METABOLIC PANEL 2021-06-07 04:13:00 [facility]IUM 2021-06-07 04:13:00 [facility] CBC W/PLT COUNT & AUTO 2021-06-07 04:13:[address] [facility] DIFFERENTIAL [place] CBC W/PLT COUNT & AUTO 2021-06-07 04:13:[address] [facility] DIFFERENTIAL Center HEMOGLOBIN AND 2021-06-07 00:04:00 Courtney, [facility] HEMATOCRIT Center POCT-GLUCOSE METER 2021-06-06 21:11:00 Courtney, [facility] CT ABDOMEN/PELVIS 2021-06-06 18:30:00 Courtney, [facility] WITHOUT IV CONTRAST Center HEMOGLOBIN AND 2021-06-06 17:45:00 Courtney, [facility] HEMATOCRIT Center HIGH SENSITIVITY 2021-06-06 17:45:00 Courtney, [facility] TROPONIN I Center POCT-GLUCOSE METER 2021-06-06 17:10:00 Courtney, [facility] POCT-GLUCOSE METER 2021-06-06 11:38:00 Courtney, [facility] HEMOGLOBIN AND 2021-06-06 10:50:00 Courtney, [facility] HEMATOCRIT Center HIGH SENSITIVITY 2021-06-06 10:50:00 Isatu Valdez [facility] TROPONIN I Center ECG 12-LEAD 2021-06-06 09:14:51 Unknown, Hl7 Doctor [facility] ECG 12-LEAD 2021-06-06 09:14:51 Unknown, Hl7 Doctor [facility] POCT-GLUCOSE METER 2021-06-06 07:50:00 [facility] BASIC METABOLIC PANEL 2021-06-06 04:35:00 [facility] MAGNESIUM 2021-06-06 04:35:00 Chandler Terry [facility] CBC W/PLT COUNT & AUTO 2021-06-06 04:35:00 Bryant Melendez [facility] DIFFERENTIAL [place] CBC W/PLT COUNT & AUTO 2021-06-06 04:35:00 Bryant Melendez [facility] DIFFERENTIAL [place] URINALYSIS W/ REFLEX 2021-06-05 21:20:00 Rosie Hardy [facility] URINE CULTURE Melinda [place] POCT-GLUCOSE METER 2021-06-05 21:13:00 [facility] HEMOGLOBIN AND 2021-06-05 20:54:00 Jame Valdezyssa [facility] HEMATOCRIT Center POCT-GLUCOSE METER 2021-06-05 17:07:00 [facility] [place] POCT-GLUCOSE METER 2021-06-05 14:52:00 [facility] PERIPHERAL ANGIOS / 2021-06-05 11:33:00 Saul Love [facility] AORTOGRAM Center POCT-GLUCOSE METER 2021-06-05 08:13:00 [facility] BASIC METABOLIC PANEL 2021-06-05 05:35:00 Chandler Terry [facility] MAGNESIUM 2021-06-05 05:35:00 AlaChandler kothari [facility] CBC W/PLT COUNT & AUTO 2021-06-05 05:35:00 Bryant [facility] CBC W/PLT COUNT & AUTO 2021-06-05 05:35:00 [facility] SARS-COV2/RT-PCR ([facility] & 2021-06-05 05:16:00 Chandler Terry [facility] REF LABS) [place] POCT-GLUCOSE METER 2021-06-04 16:18:00 [facility] TYPE AND SCREEN, 2021-06-04 14:58:00 Germán Garcia [facility] AUTOMATED [place] [facility] POCT-GLUCOSE METER 2021-06-04 11:11:00 [facility] POCT-GLUCOSE METER 2021-06-04 07:06:00 [facility] BASIC METABOLIC PANEL 2021-06-04 05:11:00 Chandler Terry [facility] MAGNESIUM 2021-06-04 05:11:00 Harrison Chandler [facility] CBC W/PLT COUNT & AUTO 2021-06-04 05:11:00 Bryant Melendez [facility] CBC W/PLT COUNT & AUTO 2021-06-04 05:11:00 [facility] POCT-GLUCOSE METER 2021-06-03 21:13:00 [facility] POCT-GLUCOSE METER 2021-06-03 15:52:00 [facility] POCT-GLUCOSE METER 2021-06-03 12:46:00 [facility] POCT-GLUCOSE METER 2021-06-03 08:37:[address] CHEST WITH IV 2021-06-03 06:12:00 [facility] CONTRAST Center CT ABDOMEN/PELVIS WITH 2021-06-03 06:12:00 [facility] IV CONTRAST Center CT BRAIN WITH IV 2021-06-03 06:12:00 [facility] CONTRAST [place] APTT 2021-06-03 05:04:00 [facility] BASIC METABOLIC PANEL 2021-06-03 05:04:00 Chandler Terry [facility] MAGNESIUM 2021-06-03 05:04:00 Harrison [facility] CBC W/PLT COUNT & AUTO 2021-06-03 05:04:00 Bryant Melendez [facility] CBC W/PLT COUNT & AUTO 2021-06-03 05:04:[address] [facility] DIFFERENTIAL [facility] (CELLAVISION MANUAL 2021-06-03 05:04:00 [facility] DIFF) [facility] POCT-GLUCOSE METER 2021-06-02 21:17:00 [facility] SARS-COV2/RT-PCR ([facility] & 2021-06-02 17:33:00 Chandler Terry [facility] REF LABS) [place] CBC W/PLT COUNT & AUTO 2021-06-02 17:32:00 Shobha Pang [facility] DIFFERENTIAL Chare [place] PLATELET COUNT 2021-06-02 17:32:00 [facility] APTT 2021-06-02 17:32:00 [facility] HEMOGLOBIN A1C 2021-06-02 17:32:00 [facility] CBC W/PLT COUNT & AUTO 2021-06-02 17:32:00 [facility] [place] POCT-GLUCOSE METER 2021-06-02 17:17:00 Alba Rodriguez [facility] [place] COMPREHENSIVE METABOLIC 2021-06-02 12:58:00 Shobha Pang [facility] PANEL [facility] XR CHEST 1 VIEW PORTABLE 2021-06-02 12:23:00 Shobha Pang [facility] / BEDSIDE [facility] HIGH SENSITIVITY 2021-06-02 12:09:52 Shobha Pang [facility] Medical TROPONIN I [facility] ECG 12-LEAD 2021-06-02 11:41:40 Shobha Pang [facility] ECG 12-LEAD 2021-06-02 11:41:40 Unknown, Hl7 [facility] PERIPHERAL ANGIOS / 2021-06-02 09:17:00 Love [facility] AORTOGRAM [place] VASCULAR DIAGRAM -SCAN 2021-06-02 00:00:00 Provider [facility] Scanning [place] CARDIAC CATH REPORT - 2021-06-02 00:00:00 Provider, [facility] SCAN Scanning [place] CBC W/PLT COUNT & AUTO 2021-05-08 12:27:00 [facility] DIFFERENTIAL [place] BASIC METABOLIC PANEL 2021-05-08 12:27:00 [facility] CBC W/PLT COUNT & AUTO 2021-05-08 12:27:00 [facility] ECG 12-LEAD 2021-05-08 12:08:20 [facility] ECG 12-LEAD 2021-05-08 12:08:20 Unknown, Hl7 [facility] SARS-COV2/RT-PCR ([facility] & 2021-05-08 12:00:00 [facility] REF LABS) Center Plan of Care Planned Activity Planned Date Details Comments Source Future Scheduled 2022-12-07 Influenza Vaccine [facility] 00:00:00 (#1) [code = Medical Center Influenza Vaccine (#1)] Future Scheduled 2022-06-[address] [facility] Test 00:00:00 [facility] r Screening (12+) [code = Tobacco Cessation Counseling and Screening (12+)] Future Scheduled 2022-06-[address] [facility] Test 00:00:00 [facility] r Screening (12+) [code = Tobacco Cessation Counseling and Screening (12+)] Future Scheduled 2022-04-[address] [facility] Test 00:00:00 (12+) [code = Medical Center DEPRESSION SCREENING (12+)] Future Scheduled 2022-04-08 FALLS RISK SCREENING [facility] Test 00:00:00 [code = FALLS RISK Medical C enter SCREENING] Future Scheduled 2021-12-[address] [facility] Test 00:00:00 (#1) [code = [facility] INFLUENZA VACCINE (#1)] Future Scheduled 2021-04-[address] [facility] Test 00:00:00 (12+) [code = Medical Center DEPRESSION SCREENING (12+)] Future Scheduled 2021-04-08 FALLS RISK SCREENING [facility] 00:00:00 [code = FALLS RISK Medical C enter SCREENING] Future Scheduled 2020-03-[address] [facility] 00:00:00 [facility] (procedure) [code = 76438523] Future Scheduled 2006-11-[address] [facility] 00:00:00 WELLNESS (YEAR 2 or Medical Center FIRST YEAR if no IPPE) [code = MEDICARE ANNUAL WELLNESS (YEAR 2 or FIRST YEAR if no IPPE)] Future Scheduled 2006-11-[address] [facility] 00:00:00 WELLNESS (YEAR 2 or Medical Center FIRST YEAR if no IPPE) [code = MEDICARE ANNUAL WELLNESS (YEAR 2 or FIRST YEAR if no IPPE)] Future Scheduled 1990 SHINGLES VACCINES ([address] [facility] Test 00:00:00 of 2) [code = [facility] SHINGLES VACCINES (1 of 2)] Future Scheduled 1990 SHINGLES VACCINES ([address] [facility] Test 00:00:00 of 2) [code = [facility] SHINGLES VACCINES (1 of 2)] Future Scheduled 1959-11-11 DTAP/TDAP/TD VACCINES [facility] 00:00:00 (1 - Tdap) [code = Medical C enter DTAP/TDAP/TD VACCINES (1 - Tdap)] Future Scheduled 1959-11-11 DTAP/TDAP/TD VACCINES [facility] 00:00:00 (1 - Tdap) [code = Medical C enter DTAP/TDAP/TD VACCINES (1 - Tdap)] Future Scheduled 1950 DIABETIC EYE EXAM [facility] Test 00:00:00 [code = DIABETIC EYE Medical Center EXAM] Future Scheduled 1950 Urine screening for [facility] Test 00:00:00 protein (procedure) [place] [code = 270947945] Future Scheduled 1941-05-13 COVID-19 VACCINE (#1) [facility] 00:00:00 [code = COVID-[address] VACCINE (#1)] Future Scheduled 1941-05-13 COVID-19 VACCINE (#1) [facility] 00:00:00 [code = COVID-[address] VACCINE (#1)] Future Scheduled 1940 DXA SCAN [code = DXA [facility] Test 00:00:00 SCAN] [facility] Future Scheduled 1940 DXA SCAN [code = DXA [facility] Test 00:00:00 SCAN] [place] Encounters Start End Encounter Admission Attending Care Care Encounter Source Date/Time Date/Time Type Type Clinicians Facility Department ID 2021-04-21 Outpatient EL LOVE, [facility] Surgery [id number] SLE 14:08:09 SAUL 2021-01-10 [facility] [id number] [facility] 19:36:46 MIHIR 2019-09-18 Inpatient EL BRANDTTELMANOVA [facility] PM\\T\\R [id number] SLE 17:27:00 UVIEOGHENE 2019-09-12 Inpatient ROXANN SUNNY, [facility] Cardiovascu [id number] SLEH 00:27:00 DAVID steward 2023-01-23 2023-01-23 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 [facility] [id number] Juan M KINCAID [id number] [address] 2023-01-232023-01-23 [facility] [id number] Univers 15:45:00 15:45:00 SENDIL ity [facility] 2023-01-17 2023-01-17 [facility] [id number] Univers 16:00:00 16:30:01 SENDIL ity [facility] 2023-01-17 2023-01-17 [facility] [id number] Univers 16:00:00 16:30:01 Visit Sendil Aure MIN [id number] [id number] [id number] [address] 2023-01-17 2023-01-17 [facility] [id number] Univers 14:00:00 14:00:00 SENDIL [facility] 2022-12-20 2022-12-20 Outpatient [facility] [id number] Univers 11:40:00 11:40:00 [facility] 2022-11-26 2022-11-26 [facility] [id number] Univers 00:00:00 00:00:00 Sendil Aure MIN [id number] [id number] [id number] [address] 2022-11-23 2022-11-23 Telephone [facility] [id number] Univers 00:00:00 00:00:00 Sendil Aure MIN [id number] [id number] [id number] [address] 2022-11-23 2022-11-23 [facility]phone [facility] [id number] Univers 00:00:00 00:00:00 Sendil Aure MIN [id number] [id number] [phone] Nh dicca NAL [address] [place] [address] 2022-11-23 2022-11-23 Patient Doctor [facility] [id number] Univers 00:00:00 00:00:00 Secure Msg Unassigned, PAKO [id number] ity of [place] [facility] [id number] [id number] [address] 2022-11-20 2022-11-20 Telephone [facility] [id number] Univers 00:00:00 00:00:00 Sendxavier MIN [id number] [id number] [phone] [facility] NAL [address] [place] [address] 2022-11-08 2022-11-08 Patient [facility] [facility] 1.2.840.114 [id number] Univers 00:00:00 00:00:00 Secure Msg Rob MIN 350.1.13.10 [place] [phone] [address] 2022-11-08 2022-11-08 Telephone [facility] 1.2.996.684 [id number] Univers 00:00:00 00:00:00 Rob MIN 350.1.13.10 ity of [facility] [place] [id number] [address] 2022-11-06 2022-11-06 Outpatient R MARITO PRZARA [facility] [id number] Univers 11:00:00 12:06:51 SENDIL ity of [facility] 2022-11-06 2022-11-06 Office Marito [facility] 1.2.840.114 [id number] Univers 11:00:00 12:06:51 Visit Sendxavier MIN 350.1.13.10 ity of [facility] [place] [id number] Nh dical NAL 059 [facility] 2022-11-06 2022-11-06 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 10 it[place] [id number] Nh dical NAL 353 [facility] 2022-10-29 2022-10-29 Outpatient R MARCO ANTONIO [facility] [id number] Univers 14:00:00 14:00:00 [facility] 2022-10-16 2022-10-16 Outpatient R MARCO ANTONIO [facility] [id number] Univers 11:00:00 11:00:00 [facility] 2022-10-10 2022-10-10 Outpatient R JENNIFER ALICIA [facility] [id number] Univers 00:00:00 23:59:00 JENNIFER ALICIA [facility] 2022-10-10 2022-10-10 Hospital JOSE FRANCISCO Alicia 1.2.840.114 [id number] Univers 00:00:00 23:59:00 Encounter Milly ROLAND 350.1.13.10 ity of [facility] 4.2.7.2.686 Hossein as [phone] [facility] [address] 2022-09-28 2022-09-28 Patient Doctor JESSE 1.2.840.114 [id number] Univers 00:00:00 00:00:00 Secure Msg Unassigned, ASUNCION 350.1.13.10 [facility] 4.2.7.2.686 Hossein as [phone] [facility] [address] 2022-09-18 2022-09-18 Refdrake Zuniga [facility] 1.2.840.114 [id number] Univers 00:00:00 00:00:00 Sade MIN 350.1.13.10 it[place] [phone] Nh dical NAL 059 [facility] 2022-09-14 2022-09-14 Hospital [facility] 1.2.840.114 [id number] Univers 12:35:22 23:59:00 Encounter Rob MIN 350.1.13.10 [place] [id number] [facility] [address] 2022-09-14 2022-09-14 Fishing Tool Supervisor Nikita, Adc Lab Main [facility] 1.2.8 40.114 [id number] Univers 13:30:00 13:45:00 Visit Rob Devi 350.1.13. 10 [place] [id number] Nh dical NAL 353 [facility] 2022-09-14 2022-09-14 [facility] [id number] Univers 11:30:00 12:14:06 SENDIL ity [facility] 2022-09-14 2022-09-14 Office [facility] 1.2.840.114 [id number] Univers 11:30:00 12:14:06 Visit Rob MIN 350.1.13.10 it[place] [id number] Nh dical NAL 059 [facility] 2022-09-14 2022-09-14 Telephone JESSE Devi 1.2.701.152 [id number] Univers 00:00:00 00:00:00 Rob ROLAND 350.1.13.10 ity of [facility] 4.2.7.2.686 Hossein as [id number] [facility] [address] 2022-09-10 2022-09-10 Outpatient R JENNIFER ALICIA [facility] [id number] Univers 00:00:00 23:59:00 JENNIFER ALICIA ity [facility] 2022-09-10 2022-09-10 [facility] JOSE FRANCISCO Alicia 1.2.840.114 [id number] Univers 00:00:00 23:59:00 Encounter Milly ASUNCION 350.1.13.10 ity of [facility] 4.2.7.2.686 Hossein as [id number] [address] 2022-08-21 2022-08-21 [facility] 1.2.177.362 [id number] Univers 00:00:00 00:00:00 Rob MIN 350.1.13.10 it[place] [id number] [place] 165929 [facility] 2022-08-21 2022-08-21 Orders Doctor JESSE 1.2.840.114 [id number] Univers 00:00:00 00:00:00 Only Unassigned, ASUNCION 350.1.13.10 ity of [place] [facility] 4.2.7.2.686 Hossein as [id number] [address] 2022-08-09 2022-08-09 Outpatient R KAMILA ALICIALOISMARKEL [facility] [id number] Univers 00:00:00 23:59:00 KAMILA ALICIASHARDAJACINDA ity of [facility] 2022-08-09 2022-08-09 Hospital JOSE FRANCISCO Alicia 1.2.840.114 [id number] Univers 00:00:00 23:59:00 Encounter Milly SINGHY 350.1.13.10 ity of [facility] 4.2.7.2.686 Hossein as [phone] [address] 2022-08-06 2022-08-06 Orders Doctor JESSE 1.2.840.114 [id number] Univers 00:00:00 00:00:00 Only Unassigned, ASUNCION 350.1.13.10 ity of [place] [facility] 4.2.7.2.686 Hossein as [id number] [address] 2022-08-02 2022-08-02 Patient [facility] 1.2.840.114 [id number] Univers 00:00:00 00:00:00 Secure Msg Rob MIN 350.1.13.10 ity of [place] [id number] Nh dical NAL 059 [facility] 2022-07-31 2022-07-31 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 10 ity of [facility] [place] [id number] Nh dical NAL 353 [facility] 2022-07-31 2022-07-31 Outpatient R MARITO [facility] [id number] Univers 14:00:00 14:50:16 SENDIL ity [facility] 2022-07-31 2022-07-31 [facility] 1.2.840.114 [id number] Univers 14:00:00 14:50:16 Visit Rob MIN 350.1.13.10 it[place] [id number] Nh dical NAL 9 [facility] 2022-07-31 2022-07-31 Orders Doctor JESSE 1.2.840.114 [id number] Univers 00:00:00 00:00:00 Only Unassigned, ASUNCION 350.1.13.10 ity of [place] [facility] 4.2.7.2.686 Hossein as [id number] [address] 2022-07-27 2022-07-27 [facility] 1.2.333.435 [id number] Univers 00:00:00 00:00:00 Rob MIN 350.1.13.10 ity of [facility] [place] [id number] Nh dical NAL 9 [facility] 2022-07-26 2022-07-26 Outpatient R MARITO [facility] [id number] Univers 10:30:00 10:30:00 SENDIL ity [facility] 2022-07-17 2022-07-17 [facility] [id number] Univers 13:00:00 13:00:00 SENDIL ity [facility] 2022-07-10 2022-07-10 Outpatient R JENNIFER ALICIA [facility] [id number] Univers 00:00:00 23:59:00 JENNIFER ALICIA ity [facility] 2022-07-10 2022-07-10 [facility] JOSE FRANCISCO Alicia 1.2.840.114 [id number] Univers 00:00:00 23:59:00 Encounter Milly ROLAND 350.1.13.10 ity of [facility] 4.2.7.2.686 Hossein [id number] [address] 2022-07-09 2022-07-09 Outpatient [facility] [id number] Univers 13:00:00 13:00:00 SENDIL ity [facility] 2022-06-07 2022-06-07 Outpatient [facility] [id number] Univers 11:40:00 23:59:00 SENDIL ity [facility] 2022-06-05 2022-06-05 [facility] 1.2.840.114 [id number] Univers 09:29:23 23:59:00 Encounter Sendxavier MIN 350.1.13.10 ity of [place] 4.2.7.2.686 [facility] [id number] [facility] [address] 2022-06-05 2022-06-05 [facility] 1.2.840.114 [id number] Univers 09:28:45 09:28:45 Encounter Sendil Aure MIN 350.1.13.10 ity of [place] 4.2.7.2.686 [facility] [id number] [address] 2022-06-05 2022-06-05 [facility] 1.2.840.114 [id number] Univers 09:27:56 09:27:56 Encounter Sendil Aure MIN 350.1.13.10 ity of [facility] [place] [id number] [facility] [address] 2022-06-05 2022-06-05 Outpatient R MARITO [facility] [id number] Univers 09:19:59 09:22:00 SENDIL ity of [facility] 2022-06-05 2022-06-05 [facility] 1.2.840.114 [id number] Univers 09:00:00 09:22:00 Encounter Rob MIN 350.1.13.10 ity of [facility] [place] [id number] [facility] [address] 2022-06-04 2022-06-04 [facility] 1.2.314.131 [id number] Univers 00:00:00 00:00:00 Sendxavier MIN 350.1.13.10 it[place] [phone] Nh dicca NAL [address] [place] [address] 2022-05-28 2022-05-28 Refill [facility] 1.2.840.114 [id number] Univers 00:00:00 00:00:00 Sendxavier MIN 350.1.13.10 it[place] [id number] Nh dic[address] 2022-05-28 2022-05-28 [facility] 1.2.840.114 [id number] Univers 00:00:00 00:00:00 Sendxavier MIN 350.1.13.10 it[place] [id number] Nh dicca NAL [address] [place] [address] 2022-05-23 2022-05-23 Outpatient R EFRAIN [facility] [id number] Univers 00:00:00 00:00:00 SADE roche o f [facility] 2022-05-11 2022-05-11 [facility] 1.2.840.114 [id number] Univers 00:00:00 00:00:00 Sendil Aure MIN 350.1.13.10 ity [facility] [place] [id number] Nh dic[address] 2022-05-10 2022-05-10 Outpatient R RG [facility] [id number] Univers 13:45:00 14:49:58 LUIGI ity [facility] 2022-05-09 2022-05-09 [facility] 1.2.840.114 [id number] Univers 14:00:00 15:03:14 Visit Sendil Aure MIN 350.1.13.10 ity [facility] [place] [id number] [address] 2022-05-09 2022-05-09 Outpatient [facility] [id number] Univers 14:00:00 15:03:14 SENDIL ity [facility] 2022-05-08 2022-05-08 [facility] 1.2.840.114 [id number] Univers 00:00:00 00:00:00 Sade MIN 350.1.13.10 ity [facility] [place] [id number] [address] 2022-05-07 2022-05-07 Out[facility] [id number] Univers 14:00:00 14:00:00 SENDIL ity [facility] 2022-05-07 2022-05-07 Outpatient R MARITO [facility] [id number] Univers 13:00:00 13:00:00 SENDIL ity [facility] 2022-05-01 2022-05-01 Outpatient [facility] [id number] Univers 14:20:00 14:20:00 SADE roche o f [facility] 2022-04-20 2022-04-20 Outpatient [facility] [id number] Univers 13:00:00 13:00:00 SENDIL ity [facility] 2022-04-20 2022-04-20 Orders Doctor JESSE 1.2.840.114 [id number] Univers 00:00:00 00:00:00 Only Unassigned, ASUNCION 350.1.13.10 ity of [place] [facility] 4.2.7.2.686 Hossein as [phone] [address] 2022-04-12 2022-04-12 Telephone [facility] 1.2.947.152 [id number] Univers 00:00:00 00:00:00 Sendil Aure MIN 350.1.13.10 ity of [facility] [place] [id number] Nh dicca NAL [address] [place] [address] 2022-04-12 2022-04-12 Orders Doctor JESSE 1.2.840.114 [id number] Univers 00:00:00 00:00:00 Only Unassigned, ASUNCION 350.1.13.10 ity of [place] [facility] 4.2.7.2.686 Hossein as [id number] [address] 2022-04-11 2022-04-11 Patient Marito [facility] 1.2.840.114 [id number] Univers 00:00:00 00:00:00 Secure Msg Rob MIN 350.1.13.10 ity of [facility] [place] [id number] Nh dicca NAL [address] [place] [address] 2022-04-09 2022-04-09 Telephone Marito [facility] 1.2.997.062 [id number] Univers 00:00:00 00:00:00 Rob MIN 350.1.13.10 it[place] [id number] [address] 2022-04-03 2022-04-03 Outpatient R MARITO PRZARA [facility] [id number] Univers 11:00:00 11:55:32 SENDIL ity [facility] 2022-04-03 2022-04-03 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 10 it[place] [id number] Me dical NAL 353 [facility] 2022-03-30 2022-03-30 Outpatient R MARITO [facility] [id number] Univers 10:00:00 11:48:47 SENDIL ity of [facility] 2022-03-30 2022-03-30 Office Marito [facility] 1.2.840.114 [id number] Univers 10:00:00 11:48:47 Visit Rob MIN 350.1.13.10 ity of [place] [id number] Nh dical NAL 059 [facility] 2022-03-30 2022-03-30 Orders Doctor MOLINA 1.2.840.114 [id number] Univers 00:00:00 00:00:00 Only Unassigned, ASUNCION 350.1.13.10 ity of [place] [facility] 4.2.7.2.686 Hossein as [id number] [address] 2021-06-19 2021-06-19 Documentat Meliton [facility] [id number] 00:00:00 00:00:00 ion Candy Ambrosio [facility] 2021-06-02 2021-06-15 Hospital Layo Echolsmonico [facility] [id number] 08:16:00 17:14:00 [facility] 2021-06-02 2021-06-15 Inpatient CORKY RODRIGUEZ [facility] Surgery [id number] SLE 08:16:00 17:14:00 [facility] 2021-06-13 2021-06-13 Travel [facility] [id number] [facility] 00[facility]00 [facility] 2021-06-12 2021-06-12 Surgery Ronald [facility] [id number] 07:40:00 10:11:00 [facility] 2021-06-09 2021-06-09 Orders [facility] [id number] 00:00:00 00:00:00 [facility] 2021-06-05 2021-06-05 Surgery Ivan [facility] [id number] 11:55:00 14:37:00 [facility] 2021-06-05 2021-06-05 Anesthesia Cuca, [facility] [id number] 11:33:00 11:33:00 Event [facility] 2021-06-02 2021-06-02 Surgery Ivan [facility] [id number] 03:40:00 06:17:00 [facility] 2021-05-29 2021-05-29 Office [facility] [id number] 10:45:00 11:00:00 Visit [facility] 2021-05-29 2021-05-29 Outpatient EL [facility] [id number] [facility] 00:00:00 00:00:00 2021-05-22 2021-05-22 Outpatient EL [facility] [id number] [facility] 00:00:00 00:00:00 2021-05-08 2021-05-08 Outpatient EL [facility] [id number] [facility] 11:33:34 11:33:34 2021-05-08 2021-05-08 Office EL Saul Love [facility] [id number] 11:00:00 11:15:00 Visit Francisca [facility] 2021-05-08 2021-05-08 Orders [facility] [id number] 00:00:00 00:00:00 [facility] 2019-11-12 2019-11-12 Outpatient COH COH PDPFEIZ YQQ COH 00:00:00 00:00:00 S- 123 2019-09-28 2019-09-28 Outpatient JUANITA DIAMOND [facility] [id number] [facility] 00:00:00 00:00:00 MIHIR Results Test Description Test Time Test Comments Results Result Comments Source POC-Glucose meter 2021-06-15 11:48:35 Test Item Value Reference Range Interpretation Comme nts POC-Glucose Meter (test code = 204 mg/dL 70-110 H : TESTED AT [facility] [address] 1538) [facility] [place], 770 30: Automotive Service Management Teacher/Techni santana ID = [id number] for Lucille Patel Lab Interpretation (test code = Abnormal 96902-2) [facility] [id number] 11:48:35 Test Item Value Reference Range Interpretation Comments POC-GLUCOSE METER 204 mg/dL 70-110 H : TESTED A T [facility] [address] (BEAKER) (test code = BERTNE R [facility] [place], 1538) 59827: Autom[employer] Service Management Teacher/Techni santana ID = [id number] for Luigi walkeryashLucilel lopez CBC with platelet count + automated [id number] 09:01:04 Test Item Value Reference Range Interpretation Comments WBC (test code = 6690-2) 9.3 See_Comment [A utomated message] The system [employer] generated this result transmitted ref erence range: 3.5 - 10 .5 K/L. The refe rence range was not u sed to interpret this result as normal/abnor mal. RBC (test code = 789-8) 2.88 See_Comment L [Au tomated message] The system [employer] generated this result transmitted ref erence range: 3.93 - 5 .22 M/L. The refe rence range was not u sed to interpret this result as normal/abnor mal. MCHC (test code = 786-4) 32.0 See_Comment L [A utomated message] The system [employer] generated this result transmitted ref erence range: [...] See_Comment [Aut omated message] 777-3) The system [employer] generated this result transmitted ref erence range: 150 - 45 0 K/CU MM. The referen ce range was not u sed to interpret this result as normal/abnor mal. MPV (test code = 10.6 fL 9.4-12.3 60177-3) nRBC (test code = 413) 0 See_Comment [Aut omated message] The system [employer] generated this result transmitted ref erence range: [...] H [Aut omated message] 670) The system [employer] generated this result transmitted ref erence range: 1.56 - 6 .13 K/L. The refe rence range was not u sed to interpret this result as normal/abnor mal. # Lymphs (test code = 1.61 See_Comment [Auto mated message] 414) The system [employer] generated this result transmitted ref erence range: 1.18 - 3 .74 K/L. The refe rence range was not u sed to interpret this result as normal/abnor mal. # Monos (test code = 0.72 See_Comment H [Autom ated message] 415) The system [employer] generated this result transmitted ref erence range: 0.24 - 0 .36 K/L. The refe rence range was not u sed to interpret this result as normal/abnor mal. # Eos (test code = 416) 0.22 See_Comment [Au tomated message] The system [employer] generated this result transmitted ref erence range: 0.04 - 0 .36 K/L. The refe rence range was not u sed to interpret this result as normal/abnor mal. # Baso (test code = 417) 0.05 See_Comment [A utomated message] The system [employer] generated this result transmitted ref erence range: 0.01 - 0 .08 K/L. The refe rence range was not u sed to interpret this result as normal/abnor mal. Immature 0 % 0-1 Granulocytes-Relative (test code = 2801) Lab Interpretation (test Abnormal code = 54600-5) [facility] W/PLT COUNT & AUTO [id number] 09:01:04 Test Item Value Reference Range Interpretation [...] PERCENT (BEAKER) (test code = 2801) POCT-GLUCOSE [id number] 08:34:15 Test Item Value Reference Range Interpretation Comments POC-GLUCOSE METER 151 mg/dL 70-110 H : TESTED A T [facility] [address] (BEAKER) (test code = KAVYA VANESSA [place], 1538) 14229: [employer] Service Management Teacher/Techni santana ID = [id number] for Lina Kuo Basic Metabolic [id number] 06:53:37 Test Item Value Reference Range Interpretation Comments Sodium (test code = 140 meq/L 518-745 4158-2) Potassium (test code = 4.8 meq/L 3.5-5.1 2823-3) Chloride (test code = 112 meq/L 98-107 H 2075-0) CO2 (test code = 23 meq/L 22-29 2028-9) BUN (test code = 32 mg/dL 7-21 H 3094-0) Creatinine (test code 1.26 mg/dL 0.57-1.25 H = 2160-0) Glucose (test code = 102 mg/dL 70-105 2345-7) Calcium (test code = 8.8 mg/dL 8.4-10.2 71371-1) EGFR (test code = 41 mL/min/1.73 [place] [address]-9) NOT ACCURATE CREATININE CLEARANCE IN PREDICTING GLOMERULAR FILTRATION RATE . ESTIMATED GFR I S NOT APPLICABLE FOR DIALYSIS PATIENTS. KAILA (test code = KAILA) Autom[employer] Service Management Teacher ID - DANO Quinonez Lab Interpretation Abnormal (test code = 15867-1) [facility] 06:53:37 Test Item Value Reference Range Interpretation Comments Magnesium (test code = 2.2 mg/dL 1.6-2.6 60193-7) KAILA (test code = KAILA) Autom[employer] Service Management Teacher ID Von Quinonez Lab Interpretation (test Normal code = 57694-8) [facility]ABOLIC [id number] 06:53:37 Test Item Value Reference Range Interpretation [...] S NOT APPLICABLE FOR DIALYSIS PATIEN TS. Automotive Service Management Teacher ID - DANO [id number] 06:53:37 Test Item Value Reference Range Interpretation Comments MAGNESIUM (BEAKER) (test code = 2.2 mg/dL 1.6-2.6 627) [employer] Service Management Teacher ID - DANO MPOCT-GLUCOSE [id number] 06:07:32 Test Item Value Reference Range Interpretation Comments POC-GLUCOSE METER 154 mg/dL 70-110 H : TESTED A T [facility] (BEAKER) (test code = KAVYA VANESSA [place], 1538) 05426: Automotive Service Management Teacher/Techni santana ID = [id number] for NG PER SANCHES Prepare Leuko-Red [id number] 23:55:00 Test Item Value Reference Range Interpretation Comments CROSSMATCH (test code = 2264) COMPATIBLE Unit ABO (test code = A Neg 8550403) UNIT NUMBER (test code = [id number] 934-0) Status (test code = 6775270) [facility]INCFL[facility] Blood Bank Product (test code RED BLOOD CELLS = 2263) PRODUCT CODE (test code = W2119Z72 933-2) [facility] [id number] 17:16:54 Test Item Value Reference Range Interpretation Comments POC-GLUCOSE METER 163 mg/dL 70-110 H : TESTED A T [facility] 6720 (BEAKER) (test code = [facility], 1538) 93015: Automotive Service Management Teacher/Techni santana ID = [id number] for ESPINOZA WHALEY POCT-GLUCOSE [id number] 12:02:33 Test Item Value Reference Range Interpretation Comments POC-GLUCOSE METER 172 mg/dL 70-110 H : TESTED A T [facility] 6720 (BEAKER) (test code = [facility], 1538) 25155: Automotive Service Management Teacher/Techni santana ID = [id number] for VASILIY WHALEYIA POCT-GLUCOSE [id number] 08:36:14 Test Item Value Reference Range Interpretation Comments POC-GLUCOSE METER 132 mg/dL 70-110 H : TESTED A T [facility] 6720 (BEAKER) (test code = [facility], 1538) 51893: Automotive Service Management Teacher/Techni santana ID = [id number] for VASILIY WHALEYIA BASIC METABOLIC [id number] 06:42:43 Test Item Value Reference Range Interpretation [...] mg/dL 8.4-10.2 (test code = 697) EGFR (BERADHA) (test 34 mL/min/1.73 ESTIMA CARSON GFR IS code = 1092) sq m NOT ACCURATE CREATININE CLEARANCE IN PREDICTING GLOMERULAR FILTRATION RATE . ESTIMATED GFR I S NOT APPLICABLE FOR DIALYSIS PATIEN TS. [employer] Service Management Teacher ID - DANO [id number] 06:42:43 Test Item Value Reference Range Interpretation Comments MAGNESIUM (FRANDY) (test code = 2.3 mg/dL 1.6-2.6 627) Autom[employer] Service Management Teacher ID - DANO MPOCT-GLUCOSE [id number] 21:56:09 Test Item Value Reference Range Interpretation Comments POC-GLUCOSE METER 196 mg/dL 70-110 H : TESTED A T BSC 6720 (FRANDY) (test code = KAVYA VANESSA PA, 1538) [id number]: [employer] Service Management Teacher/Techni santana ID = [id number] for Soledad Jurado U/S, EXTREMITY (NON-VASCULAR), RIGHT, [id number] 18:33:00Reason for exam:->[facility] 1940 Sex: FFINAL REPORT TECHNIQUE: Focused grayscale ultrasound of the right groin. INDICATION: 80-year-old woman with groin hematoma. COMPARISON: None. IMPRESSION:Soft tissue edema in the right groin without discrete hematoma or fluid collection. Signed: Da Long Verified Date/Time: 06/13/2021 18:33:55 CBC W/PLT COUNT & AUTO [id number] 17:29:43 Test Item Value Reference Range Interpretation [...] PERCENT (BEAKER) (test code = 2801) POCT-GLUCOSE [id number] 16:13:57 Test Item Value Reference Range Interpretation Comments POC-GLUCOSE METER 246 mg/dL 70-110 H : TESTED A T BSC 6720 (FRANDY) (test code = KAVYA VANESSA [place], 1538) [id number]: [employer] Service Management Teacher/Techni santana ID = [id number] for AR ESPINOZA HERNANDEZ U/S, RENAL, [id number] 15:23:00Reason for exam:->right renal mass [facility] BLAIRE : 1940 Sex: FFINAL REPORT Renal ultrasound dated 06/13/2021 Comment: Real-time transabdominal renal ultrasound was performed.Right kidney measures 8.4 x 4.3 x 5.0 cm. Left kidney measures 9.1 x 4.0 x 4.2 cm. Right renal cortex measures 1.2 cm. Left renal cortex measures 1.1 cm. Echogenicity of both renal parenchyma is normal. 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 This lesion is [...] Card MDReport Verified Date/Time: 06/13/2021 15:23:50 -GLUCOSE [id number] 12:29:20 Test Item Value Reference Range Interpretation Comments POC-GLUCOSE METER 259 mg/dL 70-110 H : TESTED A T [facility] 6720 (BEAKER) (test code = [facility], 1538) 56683: Automotive Service Management Teacher/Techni santana ID = [id number] for BÁRBARAGadielFERDINAND POCT-GLUCOSE [id number] 07:27:59 Test Item Value Reference Range Interpretation Comments POC-GLUCOSE METER 220 mg/dL 70-110 H : TESTED A T [facility] 6720 (BEAKER) (test code = [facility], 1538) 33076: Automotive Service Management Teacher/Techni santana ID = [id number] for BÁRBARA FERDINAND BASIC METABOLIC [id number] 06:16:33 Test Item Value Reference Range Interpretation [...] 697) EGFR (BEAKER) (test 28 mL/min/1.73 ESTIMA CARSON GFR IS code = 1092) sq m NOT ACCURATE CREATININE CLEARANCE IN PREDICTING GLOMERULAR FILTRATION RATE . ESTIMATED GFR I S NOT APPLICABLE FOR DIALYSIS PATIEN TS. Automotive Service Management Teacher ID - [id number] 06:10:16 Test Item Value Reference Range Interpretation Comments MAGNESIUM (BEAKER) (test code = 2.2 mg/dL 1.6-2.6 627) Automotive Service Management Teacher ID - [id number] (Hemogram only)2021-06-13 06:09:05 Test Item Value Reference Range Interpretation Comments WBC (test code = 6690-2) 9.3 See_Comment [A utomated message] The system [employer] generated this result transmitted ref erence range: 3.5 - 10 .5 K/L. The refe rence range was not u sed to interpret this result as normal/abnor mal. RBC (test code = 789-8) 2.30 See_Comment L [Au tomated message] The system [employer] generated this result transmitted ref erence range: 3.93 - 5 .22 M/L. The refe rence range was not u sed to interpret this result as normal/abnor mal. MCHC (test code = 786-4) 32.9 See_Comment L [A utomated message] The system [employer] generated this result transmitted ref erence range: [...] See_Comment [Aut omated message] 777-3) The system [employer] generated this result transmitted ref erence range: 150 - 45 0 K/CU MM. The referen ce range was not u sed to interpret this result as normal/abnor mal. MPV (test code = 10.5 fL 9.4-12.3 05177-4) nRBC (test code = 413) 0 See_Comment [Aut omated message] The system [employer] generated this result transmitted ref erence range: 0 - 0 /1 00 WBC. The refere nce range was not u sed to interpret this result as normal/abnor mal. Lab Interpretation (test Abnormal code = 58236-6) [facility] 06:09:05 Test Item Value Reference [...] 0-0 (BEAKER) (test code = 413) POCT-GLUCOSE [id number] 21:29:24 Test Item Value Reference Range Interpretation Comments POC-GLUCOSE METER 407 mg/dL 70-110 HH : TESTED A T [facility] 6720 (BEAKER) (test code = KAVYA Bennett [facility] [place], 1538) 31411: Automotive Service Management Teacher/Techni santana ID = [id number] for JAY JAY VENTURA CBC W/PLT COUNT & AUTO [id number] 19:48:15 Test Item Value Reference Range Interpretation [...] (test code = 2801) POC ACTIVATED CLOTTING [id number] 17:48:46 Test Item Value Reference Range Interpretation Comments Activated Clotting Time 112 sec : 74 -137 seconds, (test code = 3184-9) Baselin e: TESTED AT [address], [address]: Automotive Service Management Teacher/Techni santana ID = [id number] for ARMIN THEW, MINI [id number] 17:48:46 Test Item Value Reference Range Interpretation Comments ACTIVATED CLOTTING TIME 112 sec : 74 -137 seconds, (BEAKER) (test code = Baseli ne: TESTED AT 441) [address], 770 30: Automotive Service Management Teacher/Techni santana ID = [id number] for ARMIN THEW, MINI [id number] 13:36:18 Test Item Value Reference Range Interpretation Comments ACTIVATED CLOTTING TIME 231 sec : 74 -137 seconds, (BEAKER) (test code = Baseli ne: TESTED AT 441) [address], [facility] 30: Automotive Service Management Teacher/Techni santana ID = [id number] for MARI RDZ POCT-GLUCOSE [id number] 13:17:07 Test Item Value Reference Range Interpretation Comments POC-GLUCOSE METER 150 mg/dL 70-110 H : TESTED A T [place] [address] (BEAKER) (test code = KAVYA R [facility] [place], 1538) 86320: Automotive Service Management Teacher/Techni santana ID = [id number] for Go , Aloah [id number] 11:39:20 Test Item Value Reference Range Interpretation Comments ACTIVATED CLOTTING TIME 249 sec : 74 -137 seconds, (BEAKER) (test code = Baseli ne: TESTED AT 441) [address], [facility] 30: Automotive Service Management Teacher/Techni santana ID = [id number] for Ga rza (contract), Aar on [id number] 11:39:19 Test Item Value Reference Range Interpretation Comments ACTIVATED CLOTTING TIME 261 sec : 74 -137 seconds, (BEAKER) (test code = Baseli ne: TESTED AT 441) [address], 770 30: Automotive Service Management Teacher/Techni santana ID = [id number] for Ga rza (contract), Aar on [id number] 11:39:19 Test Item Value Reference Range Interpretation Comments ACTIVATED CLOTTING TIME 249 sec : 74 -137 seconds, (BEAKER) (test code = Baseli ne: TESTED AT 441) [address], 770 30: Automotive Service Management Teacher/Techni santana ID = [id number] for Toan dave (contract), Aar on POCT-GLUCOSE [id number] 08:09:18 Test Item Value Reference Range Interpretation Comments POC-GLUCOSE METER 104 mg/dL 70-110 : TESTED A T [facility] 6720 (BEAKER) (test code = [facility] [place], 1538) 97609: Automotive Service Management Teacher/Techni santana ID = [id number] for Senia Gomes BASIC METABOLIC [id number] 05:15:33 Test Item Value Reference Range Interpretation [...] S NOT APPLICABLE FOR DIALYSIS PATIEN TS. Automotive Service Management Teacher ID - TLVXRIAYBEOUXB3626-12-60 05:15:33 Test Item Value Reference Range Interpretation Comments MAGNESIUM (BEAKER) (test code = 2.0 mg/dL 1.6-2.6 627) Automotive Service Management Teacher ID - ADMINCBC (HEMOGRAM ONLY)2021-06-12 04:52:21 Test [...] Not Detected, (test code = Negative, See 14234-3) external report for linked test SARS-COV-2 [facility] PERFORMING LAB (test code = 27115-1) KAILA (test code = Negative result for [...] of the Act. Fact Sheet for Healthcare Providers:https://www.[employer]/sites/default/f chica/product/documents/F act_Sheet_HC_Providers_L dpa_VWTZ-YyC-2.pdf Fact Sheet for Healthcare Patients:https://www.[employer]/sites/default/fi les/product/documents/Fa ct_Sheet_Patients_Lyra_S ARS-CoV-2.pdf Performing Laboratory:[place] [address] [address]ARS-[address]OV2/RT-PCR ([facility])2021-06-12 01:56:31 Test Item Value Reference Range Interpretation Comments SARS-COV2/RT-PCR (test Negative Not Detected, Negative, code = 1373518) See external report for linked test SARS-COV-2 PERFORMING LAB [facility] (test code = 7781248) Negative result for this test determines that [...] of the Act.Fact Sheet for Healthcare Prov iders:https://www.[employer]/sites/default/files/product/documents/Fact_Sheet_HC _Yymslqskw_Yiiu_AQGK-WaN-9.pdfFact Sheet for Healthcare Patients:https://www.[employer]/sites/default/files/product/docume nts/Crvq_Lcnel_Cbfrpbft_Njqw_UXOJ-SvP-1.pdfPerforming Laboratory:[facility] [facility].[place], [place] [address]IIAH-EOYSHNI METER 2021-06-11 21:28:29 Test Item Value Reference Range Interpretation Comments POC-GLUCOSE METER 181 mg/dL 70-110 H : TESTED A T [facility] 6720 (MileIQ) (test code = [facility], 1538) 65902: Automotive Service Management Teacher/Techni santana ID = [id number] for EJ ELAM SE POCT-GLUCOSE [id number] 16:55:29 Test Item Value Reference Range Interpretation Comments POC-GLUCOSE METER 161 mg/dL 70-110 H : TESTED A T [facility] 6720 (BEAKER) (test code = [facility], 1538) 10402: Automotive Service Management Teacher/Techni santana ID = [id number] for FAROOQ TERRY Hemoglobin and [id number] 13:25:57 Test Item Value Reference Range Interpretation [...] = 4544-3) KAILA (test code = KAILA) Automotive Service Management Teacher ID - [id number] Lab Interpretation Abnormal (test code = 57202-8) [facility]MO[facility] AND [id number] 13:25:57 Test Item Value Reference Range Interpretation Comments HEMOGLOBIN (BEAKER) (test code = 10.2 GM/DL 11.2-15.7 L 410) HEMATOCRIT (BEAKER) (test code = 31.4 % 34.1-44.9 L 411) Automotive Service Management Teacher ID - [id number]-GLUCOSE [id number] 11:54:07 Test Item Value Reference Range Interpretation Comments POC-GLUCOSE METER 160 mg/dL 70-110 H : TESTED A T [facility] 6720 (BEAKER) (test code = [facility], 1538) 25471: Automotive Service Management Teacher/Techni santana ID = [id number] for FAROOQ TERRY POCT-GLUCOSE [id number] 07:54:12 Test Item Value Reference Range Interpretation Comments POC-GLUCOSE METER 116 mg/dL 70-110 H : TESTED A T [facility] 6720 (BEAKER) (test code = [facility], 1538) 09178: Automotive Service Management Teacher/Techni santana ID = [id number] for FAROOQ TERRY BASIC METABOLIC [id number] 05:07:58 Test Item Value Reference Range Interpretation [...] S NOT APPLICABLE FOR DIALYSIS PATIEN TS. Automotive Service Management Teacher ID - SOPHIA [id number] 05:07:58 Test Item Value Reference Range Interpretation Comments MAGNESIUM (BEAKER) (test code = 2.0 mg/dL 1.6-2.6 627) Automotive Service Management Teacher ID - SOPHIA GCBC (HEMOGRAM ONLY)2021-06-11 04:51:31 [...] 0-0 (BEAKER) (test code = 413) POCT-GLUCOSE [id number] 21:20:37 Test Item Value Reference Range Interpretation Comments POC-GLUCOSE METER 181 mg/dL 70-110 H : TESTED A T [facility] 6720 (BEAKER) (test code = [facility] [place], 1538) 26065: Automotive Service Management Teacher/Techni santana ID = [id number] for EJ ELAM SE POCT-GLUCOSE [id number] 17:25:36 Test Item Value Reference Range Interpretation Comments POC-GLUCOSE METER 159 mg/dL 70-110 H : TESTED A T [facility] 6720 (BEAKER) (test code = [facility], 1538) 87463: Automotive Service Management Teacher/Techni santana ID = [id number] for Jaime Aguilar Urinalysis w/Microscopic + Reflex to [id number] 14:39:06 Test Item Value Reference Range Interpretation Comments Color, UA (test code Light Yellow = 5778-6) Clarity, UA (test Hazy code = 5767-9) Specific [place], UA 1.011 1.001-1.035 (test code = 5811-5) pH, UA (test code = 6.0 5.0-8.0 5803-2) Protein, UA (test Negative Negative code = 05622-0) Glucose, UA (test 150 mg/dL Negative A code = 365) Ketones, UA (test Negative Negative code = 2514-8) Bilirubin, UA (test Negative Negative code = 30174-4) Blood, UA (test code Negative Negative = 27559-1) Nitrite, UA (test Negative Negative code = 5802-4) Leukocytes, UA (test Large Negative A code = 5799-2) Urobilinogen, UA 0.2 mg/dL 0.2-1.0 (test code = 92143-8) RBC, UA (test code = 4 See_Comment [Autom ated 76125-4) message] The system which generated this result [...] . Bacteria, UA (test Occasional code = 23964-0) Squam Epithel, UA 3 See_Comment [Automate d (test code = 45362-6) messag e] The system which generated this result transmitted reference range : /HPF. The reference range was not used to interpret this result as normal/abnormal . Crystals, Urine (test None Seen code = 32639-7) Specimen Source (test code = 2795) KAILA (test code = KAILA) Automotive Service Management Teacher ID - [auto]Automotive Service Management Teacher ID - tech Lab Interpretation Abnormal (test code = 66191-1) [facility]FLEX URINE [id number] 14:39:06 Test Item Value Reference Range Interpretation [...] = 1521) SOURCE(BEAKER) (test code = 2795) Automotive Service Management Teacher ID - [auto]Automotive Service Management Teacher ID - techPOCT-GLUCOSE [id number] 11:39:56 Test Item Value Reference Range Interpretation Comments POC-GLUCOSE METER 160 mg/dL 70-110 H : TESTED A T [facility] 6720 (BEAKER) (test code = [facility] [place], 1538) 16493: Automotive Service Management Teacher/Techni santana ID = [id number] for Jaime Aguilar POCT-GLUCOSE [id number] 07:57:12 Test Item Value Reference Range Interpretation Comments POC-GLUCOSE METER 111 mg/dL 70-110 H : TESTED A T [facility] 6720 (BEAKER) (test code = KAVYA Bennett [facility] [place], 1538) 10894: Automotive Service Management Teacher/Techni santana ID = [id number] for Jaime Aguilar [id number] 06:16:01 Test Item Value Reference Range Interpretation Comments MAGNESIUM (BEAKER) (test code = 2.0 mg/dL 1.6-2.6 627) Automotive Service Management Teacher ID - ADMINBASIC METABOLIC [id number] 06:16:00 Test Item Value Reference Range Interpretation [...] S NOT APPLICABLE FOR DIALYSIS PATIEN TS. Automotive Service Management Teacher ID - ADMINCBC (HEMOGRAM ONLY)2021-06-10 05:44:12 Test [...] 0-0 (BEAKER) (test code = 413) POCT-GLUCOSE [id number] 21:20:05 Test Item Value Reference Range Interpretation Comments POC-GLUCOSE METER 179 mg/dL 70-110 H : [facility] (test code = KAVYA Bennett [facility] [place], 1538) 81297: Automotive Service Management Teacher/Techni santana ID = [id number] for АЛЕКСАНДРAIDA RODRIGUEZ SARS-COV2/RT-PCR ([facility])2021-06-09 19:40:01 Test Item Value Reference Range Interpretation Comments SARS-COV2/RT-PCR (test code = Negative Negative 2741009) Negative result for this test determines that [...] the Carranza SARS-CoV-2 assay.Fact Sheet for Healthcare Providers:https://www.Wire.CaratLane/jose/RT SARS-CoV-2 HCP Fact Sheet 51- 518623.pdfFact Sheet for Healthcare Patients:https://www.Wire.CaratLane/jose/RT SARS-CoV-2 Patient Fact Sheet EN 51-855735Q0.pdfPOCT-GLUCOSE [id number] 17:37:05 Test Item Value Reference Range Interpretation Comments POC-GLUCOSE METER 193 mg/dL 70-110 H : TESTED A T [facility] 6720 ([facility] (test code = [facility] [place], 1538) 67117: Automotive Service Management Teacher/Techni santana ID = [id number] for Gi les, Adeja PET/CT, CARDIAC PERF REST AND [id number] 14:55:00Reason for exam:->new afib/ flutter in patient with h/o CABG and now with some CP during palpitations. [facility]UDD : 1940 Sex: FFINAL REPORT PROCEDURE: MYOCARDIAL PERFUSION PET/CT IMAGING (Rest/Stress)CPT CODE: 62659 INDICATION: Evaluate acute chest pain/discomfort CARDIOVASCULAR PROFILE:CAD [...] MDReport Verified Date/Time: 06/09/2021 14:55:31 Reading Location: [address] Reading Room POCT-GLUCOSE [id number] 12:06:08 Test Item Value Reference Range Interpretation Comments POC-GLUCOSE METER 124 mg/dL 70-110 H : TESTED A T [facility] 6720 (BEAKER) (test code = KAVYA Bennett [facility] [place], 1538) 89506: Automotive Service Management Teacher/Techni santana ID = [id number] for Jaime Aguilar HEMOGLOBIN AND [id number] 11:59:02 Test Item Value Reference Range Interpretation Comments HEMOGLOBIN (BEAKER) (test code = 9.7 GM/DL 11.2-15.7 L 410) HEMATOCRIT (BEAKER) (test code = 29.9 % 34.1-44.9 L 411) Automotive Service Management Teacher ID - [id number] ID - 6000POCT-GLUCOSE [id number] 07:29:23 Test Item Value Reference Range Interpretation Comments POC-GLUCOSE METER 106 mg/dL 70-110 : TESTED A T [facility] 6720 (BEAKER) (test code = KAVYA Bennett [facility] [place], 1538) 51865: Automotive Service Management Teacher/Techni santana ID = [id number] for FAROOQ TERRY [id number] 05:33:34 Test Item Value Reference Range Interpretation Comments MAGNESIUM (BEAKER) (test code = 2.0 mg/dL 1.6-2.6 627) Automotive Service Management Teacher ID - DBBASIC METABOLIC [id number] 05:33:33 Test Item Value Reference Range Interpretation [...] S NOT APPLICABLE FOR DIALYSIS PATIEN TS. Automotive Service Management Teacher ID - DBCBC (HEMOGRAM ONLY)2021-06-09 04:18:56 Test [...] 0-0 (BEAKER) (test code = 413) POCT-GLUCOSE [id number] 21:33:50 Test Item Value Reference Range Interpretation Comments POC-GLUCOSE METER 161 mg/dL 70-110 H : TESTED A T [facility] 6720 (BEAKER) (test code = [place], 1538) 01869: Automotive Service Management Teacher/Techni santana ID = [id number] for ANATOLY RODRIGUES TSH/Free T4 If [id number] 18:58:52 Test Item Value Reference Range Interpretation Comments TSH (test code = 1.527 See_Comment [Automated 59184-2) message] The system which generated this result transmit carson reference range : 0.350 - 4.940 uIU/mL. The reference range was not used to interpret this result as normal/abnormal . KAILA (test code = KAILA) Automotive Service Management Teacher ID - DB Lab Interpretation Normal (test code = 57379-1) [facility] T4 IF [id number] 18:58:52 Test Item Value Reference Range Interpretation Comments THYROID STIMULATING HORMONE 1.527 uIU/mL 0.350-4.940 (BEAKER) (test code = 772) Automotive Service Management Teacher ID - DBHEMOGLOBIN AND [id number] 18:15:47 Test Item Value Reference Range Interpretation Comments HEMOGLOBIN (BEAKER) (test code = 10.4 GM/DL 11.2-15.7 L 410) HEMATOCRIT (BEAKER) (test code = 32.3 % 34.1-44.9 L 411) Automotive Service Management Teacher ID - 6000POCT-GLUCOSE [id number] 17:39:18 Test Item Value Reference Range Interpretation Comments POC-GLUCOSE METER 98 mg/dL 70-110 : TESTED A T [facility] 6720 ([facility]) (test code = [facility], 153) 89738: Automotive Service Management Teacher/Techni santana ID = [id number] for Darek osSenia 2D Echo W/Doppler(CW/PW/Color)2021-06-08 14:50:20Ejection [facility] ECHO HEARTLAB MKCKESSON [facility] [id number] 11:38:48 Test Item Value Reference Range Interpretation Comments POC-GLUCOSE METER 268 mg/dL 70-110 H : TESTED A T [facility] 6720 ([employer]) (test code = [facility], 1538) 35532: Automotive Service Management Teacher/Techni santana ID = [id number] for Sa ntos, Senia POCT-GLUCOSE [id number] 07:45:46 Test Item Value Reference Range Interpretation Comments POC-GLUCOSE METER 110 mg/dL 70-110 : TESTED A T [facility] 6720 (BEAKER) (test code = [facility], 1538) 27031: Automotive Service Management Teacher/Techni santana ID = [id number] for Sa ntos, Senia [id number] 05:41:28 Test Item Value Reference Range Interpretation Comments MAGNESIUM (BEAKER) (test code = 2.0 mg/dL 1.6-2.6 627) Automotive Service Management Teacher ID - SOPHIA GBASIC METABOLIC [id number] 05:41:27 Test Item Value Reference Range Interpretation [...] S NOT APPLICABLE FOR DIALYSIS PATIEN TS. Automotive Service Management Teacher ID - SOPHIA GCBC (HEMOGRAM ONLY)2021-06-08 04:43:35 [...] 0-0 (BEAKER) (test code = 413) POCT-GLUCOSE [id number] 21:15:34 Test Item Value Reference Range Interpretation Comments POC-GLUCOSE METER 157 mg/dL 70-110 H : TESTED A T [facility] 6720 (BEAKER) (test code = [facility], 1538) 91495: Automotive Service Management Teacher/Techni santana ID = [id number] for AG U, SMITH HEMOGLOBIN AND [id number] 20:36:20 Test Item Value Reference Range Interpretation Comments HEMOGLOBIN (BEAKER) (test code = 9.6 GM/DL 11.2-15.7 L 410) HEMATOCRIT (BEAKER) (test code = 29.9 % 34.1-44.9 L 411) Automotive Service Management Teacher ID - 6000POCT-GLUCOSE [id number] 17:16:27 Test Item Value Reference Range Interpretation Comments POC-GLUCOSE METER 118 mg/dL 70-110 H : TESTED A T [facility] 6720 (BEAKER) (test code = [facility], 1538) 71710: Automotive Service Management Teacher/Techni santana ID = [id number] for Sa ntos, Senia HEMOGLOBIN AND [id number] 15:41:03 Test Item Value Reference Range Interpretation Comments HEMOGLOBIN (BEAKER) (test code = 9.3 GM/DL 11.2-15.7 L 410) HEMATOCRIT (BEAKER) (test code = 32.1 % 34.1-44.9 L 411) Automotive Service Management Teacher ID - 6000POCT-GLUCOSE [id number] 12:55:24 Test Item Value Reference Range Interpretation Comments POC-GLUCOSE METER 125 mg/dL 70-110 H : TESTED A T [facility] 6720 (BEAKER) (test code = [facility], 1538) 56792: Automotive Service Management Teacher/Techni santana ID = [id number] for Sa ntos, Senia POCT-GLUCOSE [id number] 07:50:40 Test Item Value Reference Range Interpretation Comments POC-GLUCOSE METER 114 mg/dL 70-110 H : TESTED A T [facility] 6720 (BEAKER) (test code = [place], 1538) 96388: Automotive Service Management Teacher/Techni santana ID = [id number] for Senia Gomes [id number] 04:45:32 Test Item Value Reference Range Interpretation Comments MAGNESIUM (BEAKER) (test code = 2.1 mg/dL 1.6-2.6 627) Automotive Service Management Teacher ID - BSBASIC METABOLIC [id number] 04:45:31 Test Item Value Reference Range Interpretation [...] S NOT APPLICABLE FOR DIALYSIS PATIEN TS. Automotive Service Management Teacher ID - BSCBC W/PLT COUNT & AUTO [id number] 04:32:44 Test Item Value Reference Range Interpretation [...] (BEAKER) (test code = 2801) HEMOGLOBIN AND [id number] 00:13:34 Test Item Value Reference Range Interpretation Comments HEMOGLOBIN (BEAKER) (test code = 8.0 GM/DL 11.2-15.7 L 410) HEMATOCRIT (BEAKER) (test code = 24.7 % 34.1-44.9 L 411) Automotive Service Management Teacher ID - 6000POCT-GLUCOSE [id number] 21:22:49 Test Item Value Reference Range Interpretation Comments POC-GLUCOSE METER 189 mg/dL 70-110 H : TESTED A T [facility] 6720 (BEAKER) (test code = KAVYA Bennett [facility] [place], 1538) 07085: Automotive Service Management Teacher/Techni santana ID = [id number] for EJ ELAM SE CT, [id number] 19:00:00Reason for exam:->acute right sided abdominal pain in setting of recent lower extremity angiogramand drop in hgb, evaluate for retroperitoneal hematomaWhat is the patient's sedation requirement?->No Sedation[facility]ARC[facility] BLAIRE : 1940 Sex: FFINAL REPORT ABDOMINAL AND [...] MDReport Verified Date/Time: 06/06/2021 19:00:47 Reading Location: [facility] [id number] CT Body Reading Room High Sensitivity Troponin [id number] 18:24:36 Test Item Value Reference Range Interpretation Comments Troponin I HS (test 21 pg/ml See_Comment H [Automa carson code = 69299-0) message] The system which generated this result transmitted reference range : <=17. The reference range was not used to interpret this result as normal/abnormal . KAILA (test code = Automotive Service Management Teacher ID - KAILA) ADMINThe WHITESMITH STAT High Sensitivity Troponin-I results should be used in conjunction with other diagnostic information such as ECG, clinical observations and information, and patient symptoms to aid in the diagnosis of [place]. Lab Interpretation Abnormal (test code = 02705-4) [facility] TROPONIN [id number] 18:24:36 Test Item Value Reference Range Interpretation Comments HIGH SENSITIVITY 21 pg/ml See_Comment H [Automated message] TROPONIN I (test code = The system which [id number]) generated this result transmitted ref erence range: <=17. Th e reference range was not used to int erpret this result as normal/abnormal . Automotive Service Management Teacher ID - ADMINThe WHITESMITH STAT High Sensitivity Troponin-I results should be used in conjunction with other diagnostic information such as ECG, clinical observations and information, and patientsymptoms to aid in the diagnosis of [place]. HEMOGLOBIN AND [id number] 17:54:38 Test Item Value Reference Range Interpretation Comments HEMOGLOBIN (BEAKER) (test code = 9.0 GM/DL 11.2-15.7 L 410) HEMATOCRIT (BEAKER) (test code = 27.7 % 34.1-44.9 L 411) Automotive Service Management Teacher ID - [id number]-GLUCOSE [id number] 17:22:08 Test Item Value Reference Range Interpretation Comments POC-GLUCOSE METER 170 mg/dL 70-110 H : TESTED A T [facility] 6720 (BEAKER) (test code = [facility], 1538) 04619: Automotive Service Management Teacher/Techni santana ID = [id number] for JANIS MCKEON POCT-GLUCOSE [id number] 11:54:16 Test Item Value Reference Range Interpretation Comments POC-GLUCOSE METER 209 mg/dL 70-110 H : TESTED A T [facility] 6720 (BEAKER) (test code = [facility], 1538) 47244: Automotive Service Management Teacher/Techni santana ID = [id number] for JANIS MCKEON HIGH SENSITIVITY TROPONIN [id number] 11:22:38 Test Item Value Reference Range Interpretation Comments HIGH SENSITIVITY 14 pg/ml See_Comment [Automated message] TROPONIN I (test code = The system which 2556205) generated this result transmitted ref erence range: <=17. Th e reference range was not used to int erpret this result as normal/abnormal . Automotive Service Management Teacher ID - PIAYA LThe WHITESMITH STAT High Sensitivity Troponin-I results should be used in conjunction with other diagnostic information such as ECG, clinical observations and information, and patient symptoms to aid in the diagnosis of [place].HEMOGLOBIN AND [id number] 11:00:14 Test Item Value Reference Range Interpretation Comments HEMOGLOBIN (BEAKER) (test code = 9.3 GM/DL 11.2-15.7 L 410) HEMATOCRIT (BEAKER) (test code = 28.5 % 34.1-44.9 L 411) Automotive Service Management Teacher ID - [id number]-GLUCOSE [id number] 08:02:14 Test Item Value Reference Range Interpretation Comments POC-GLUCOSE METER 167 mg/dL 70-110 H : TESTED A T [facility] 6720 (BEAKER) (test code = [facility], 1538) 79102: Automotive Service Management Teacher/Techni santana ID = [id number] for JANIS MCKEON BASIC METABOLIC [id number] 07:19:33 Test Item Value Reference Range Interpretation [...] S NOT APPLICABLE FOR DIALYSIS PATIEN TS. Automotive Service Management Teacher ID - [id number] 07:19:33 Test Item Value Reference Range Interpretation Comments MAGNESIUM (BEAKER) (test code = 2.1 mg/dL 1.6-2.6 627) Automotive Service Management Teacher ID - EOCBC W/PLT COUNT & AUTO [id number] 06:31:46 Test Item Value Reference Range Interpretation [...] code = 2801) URINALYSIS W/ REFLEX URINE [id number] 21:46:08 Test Item Value Reference Range Interpretation [...] = Many 1585) SOURCE(BEAKER) (test code = 9225) Automotive Service Management Teacher ID - [auto]Automotive Service Management Teacher ID - techPOCT-GLUCOSE [id number] 21:24:58 Test Item Value Reference Range Interpretation Comments POC-GLUCOSE METER 253 mg/dL 70-110 H : TESTED A T [facility] 6720 (BEAKER) (test code = [facility], 1538) 53718: Automotive Service Management Teacher/Techni santana ID = [id number] for EJ ELAM SE HEMOGLOBIN AND [id number] 21:05:13 Test Item Value Reference Range Interpretation Comments HEMOGLOBIN (BEAKER) (test code = 10.4 GM/DL 11.2-15.7 L 410) HEMATOCRIT (BEAKER) (test code = 31.8 % 34.1-44.9 L 411) Automotive Service Management Teacher ID - 6000POCT-GLUCOSE [id number] 17:19:18 Test Item Value Reference Range Interpretation Comments POC-GLUCOSE METER 209 mg/dL 70-110 H : TESTED A T [facility] 6720 (BEAKER) (test code = [facility], 1538) 70648: Automotive Service Management Teacher/Techni santana ID = [id number] for MA RTIN, CHIANNA POCT-GLUCOSE [id number] 15:04:10 Test Item Value Reference Range Interpretation Comments POC-GLUCOSE METER 138 mg/dL 70-110 H : TESTED A T [facility] 6720 (BEAKER) (test code = [facility], 1538) 96714: Automotive Service Management Teacher/Techni santana ID = [id number] for MA RTIN, CHIANNA SARS-COV2/RT-PCR ([facility])2021-06-05 11:38:34 Test Item Value Reference Range Interpretation Comments SARS-COV2/RT-PCR (test Negative Not Detected, Negative, code = 3133601) See external report for linked test SARS-COV-2 PERFORMING LAB [facility] GILLIAN (test code = 4325805) Negative result for this test determines that [...] of the Act.Fact Sheet for Healthcare Prov iders:https://www.BitInstant.com/sites/default/files/product/documents/Fact_Sheet_HC _Lfwxywmyp_Glad_HYNJ-NmW-8.pdfFact Sheet for Healthcare Patients:https://www.BitIn[employer]/sites/default/files/product/docume nts/Fgzj_Nirjl_Kympoqpq_Tpiy_OCYS-ChB-1.pdfPerforming Laboratory:[place] [address], [place] [address]SBFQ-WNMPMGS METER 2021-06-05 08:25:40 Test Item Value Reference Range Interpretation Comments POC-GLUCOSE METER 88 mg/dL 70-110 : TESTED A T [facility] 6720 (BEAKER) (test code = [facility] [place], 1538) 34179: Automotive Service Management Teacher/Techni santana ID = [id number] for HENRRY SCHWAB BASIC METABOLIC [id number] 06:27:46 Test Item Value Reference Range Interpretation [...] S NOT APPLICABLE FOR DIALYSIS PATIEN TS. Automotive Service Management Teacher ID - DANO [id number] 06:27:46 Test Item Value Reference Range Interpretation Comments MAGNESIUM (BEAKER) (test code = 2.3 mg/dL 1.6-2.6 627) Automotive Service Management Teacher ID - DANO MCBC W/PLT COUNT & AUTO [id number] 06:00:12 Test Item Value Reference Range Interpretation [...] PERCENT (BEAKER) (test code = 2801) POCT-GLUCOSE [id number] 16:29:59 Test Item Value Reference Range Interpretation Comments POC-GLUCOSE METER 140 mg/dL 70-110 H : TESTED Hebert Mueller [facility] 6720 (BEAKER) (test code = [facility] [place], 1538) 34526: Automotive Service Management Teacher/Techni santana ID = [id number] for Franco Maki POCT-GLUCOSE [id number] 11:23:40 Test Item Value Reference Range Interpretation Comments POC-GLUCOSE METER 141 mg/dL 70-110 H : TESTED A T [facility] 6720 (BEAKER) (test code = [facility], 1538) 80325: Automotive Service Management Teacher/Techni santana ID = [id number] for Franco Maki [id number] 07:31:22 Test Item Value Reference Range Interpretation Comments MAGNESIUM (BEAKER) 2.5 mg/dL 1.6-2.6 Specimen slightly (test code = 627) hemolyzed Automotive Service Management Teacher ID - PIAYA LBASIC METABOLIC [id number] 07:31:22 Test Item Value Reference Range Interpretation [...] S NOT APPLICABLE FOR DIALYSIS PATIEN TS. Automotive Service Management Teacher ID - PIAYA LPOCT-GLUCOSE [id number] 07:21:59 Test Item Value Reference Range Interpretation Comments POC-GLUCOSE METER 162 mg/dL 70-110 H : TESTED A T [facility] 6720 (BEAKER) (test code = [facility] Sabrina [facility], 1538) 12436: Automotive Service Management Teacher/Techni santana ID = [id number] for Do Martha tolentinolon CBC W/PLT COUNT & AUTO [id number] 06:59:41 Test Item Value Reference Range Interpretation [...] PERCENT (BEAKER) (test code = 2801) POCT-GLUCOSE [id number] 21:25:13 Test Item Value Reference Range Interpretation Comments POC-GLUCOSE METER 235 mg/dL 70-110 H : [facility] (test code = [facility], 1538) 34209: Automotive Service Management Teacher/Techni santana ID = [id number] for Co rtezHeronHissop POCT-GLUCOSE [id number] 16:03:54 Test Item Value Reference Range Interpretation Comments POC-GLUCOSE METER 313 mg/dL 70-110 H : TESTED A T [facility] 6720 ([facility]) (test code = [facility], 1538) 02363: Automotive Service Management Teacher/Techni santana ID = [id number] for Fl ores (pca2), Cheyanne POCT-GLUCOSE [id number] 12:58:05 Test Item Value Reference Range Interpretation Comments POC-GLUCOSE METER 309 mg/dL 70-110 H : Notified RN/MD: ([facility]) (test code = TESTED AT [facility] 67[address] 1538) [facility], [address]: Automotive Service Management Teacher/Techni santana ID = [id number] for Fl ores (pca2), [place]yanne (CELLAVISION MANUAL [...] CONCENTRATION Adequate (CELLAVISION)(BEAKER) (test code = 3438) Automotive Service Management Teacher ID - Ashish-Curly Francia comments: Slide comments:CBC W/PLT COUNT & AUTO [id number] 09:56:11 Test Item Value Reference Range Interpretation [...] 0-0 (BEAKER) (test code = 413) Hemoglobin [id number] 09:11:59 Test Item Value Reference Range Interpretation [...] ADM Lab Interpretation Abnormal (test code = 20963-1) [facility] [id number] 09:11:59 Test Item Value Reference Range Interpretation Comments HEMOGLOBIN A1C 7.1 % See_Comment H [Automated m essage] ELECTROPHORESIS (BEAKER) The system which (test code = 3811) generated this result transmitted ref erence range: <=5.6%. The reference range was not used to int erpret this result as normal/abnormal . "The A1c is measured using a NGSP-certified method. HbA1c value equal to or greater than 6.5% as thediagnosis cutoff for diabetes. An HbA1c value of 5.7- 6.4% indicates increased risk for diabetes (prediabetes)."Automotive Service Management Teacher ID - ADMPOCT- GLUCOSE [id number] 09:00:23 Test Item Value Reference Range Interpretation Comments POC-GLUCOSE METER 184 mg/dL 70-110 H : TESTED A T [facility] 6720 (BEAKER) (test code = [facility] [place], 1538) 75800: Automotive Service Management Teacher/Techni santana ID = [id number] for Bea low (pca2)[place] CT, CHEST, WITH [id number] 07:52:00Unlisted Reason for Exam - Click Yes and Enter Reason Below->No [facility] 1940 Sex: FFINAL [...] the posterior midportion of the right kidney, suspiciousfor renal cell carcinoma. Better characterization may be obtained with CT of the abdomen without andwith contrast, renal mass protocol.3. Sigmoid diverticulosis, without diverticulitis.4. Prior cholecystectomy and hysterectomy.5. Left lower lobe bronchiectasis. Signed: Bismark Connelly MDReport Verified Date/Time: 06/03/2021 07:52:40 Reading Location: [facility] B1 C013X Ortho Consult Reading Room CT, [id number] 07:52:00Unlisted Reason for Exam - Click Yes and Enter Reason Below->NoIs this for enterography?->NoWill this procedure require oral contrast?->No [facility] : 1940 Sex: FFINAL REPORT CT Chest, [...] Left lower lobe bronchiectasis. Signed: Bismark Connelly [facility] Verified Date/Time: 06/03/2021 07:52:40 Reading Location: [facility] C013X Ortho Consult Reading Room CT, BRAIN, WITH [id number] 07:13:00Unlisted Reason for Exam - Click Yes and Enter Reason Below->No [facility]IRE : 1940 Sex: [...] Villegas MDReportVerified Date/Time: 06/03/2021 07:13:52 BASIC METABOLIC [id number] 06:26:30 Test Item Value Reference Range Interpretation [...] S NOT APPLICABLE FOR DIALYSIS PATIEN TS. Automotive Service Management Teacher ID - DANO [id number] 06:26:30 Test Item Value Reference Range Interpretation Comments MAGNESIUM (BEAKER) (test code = 2.3 mg/dL 1.6-2.6 627) Automotive Service Management Teacher ID - DANO [id number] 05:58:02 Test Item Value Reference Range Interpretation Comments PARTIAL THROMBOPLASTIN TIME 29.1 seconds 22.5-36.0 (BEAKER) (test code = 760) SARS-COV2/RT-PCR ([facility])2021-06-03 00:56:51 Test Item Value Reference Range Interpretation Comments SARS-COV2/RT-PCR (test Negative Not Detected, Negative, code = 2077783) See external report for linked test SARS-COV-2 PERFORMING LAB [facility] GILLIAN (test code = 0879925) Negative result for this test determines that [...] of the Act.Fact Sheet for Healthcare Prov iders:https://www.MedHab/sites/default/files/product/documents/Fact_Sheet_HC _Hoypsduyc_Khfe_GNLZ-PyR-5.pdfFact Sheet for Healthcare Patients:https://www.MedHab/sites/default/files/product/docume nts/Rmqr_Cevtl_Ytzyiigu_Nekd_MJDB-PkF-1.pdfPerforming Laboratory:[facility], [place] [address]LRSB-BDKQDEV METER 2021-06-02 21:28:56 Test Item Value Reference Range Interpretation Comments POC-GLUCOSE METER 201 mg/dL 70-110 H : TESTED A T [facility] 6720 (BEAKER) (test code = KAVYA Bennett [place], 1538) [address]: Automotive Service Management Teacher/Techni santana ID = [id number] for EJ ELAM SE [id number] 17:52:01 Test Item Value Reference Range Interpretation Comments PARTIAL THROMBOPLASTIN TIME 28.7 seconds 22.5-36.0 (BEAKER) (test code = 760) Platelet [id number] 17:44:21 Test Item Value Reference Range Interpretation Comments Platelets (test code = 181 See_Comment [Aut omated message] 777-3) The system [employer] generated this result transmitted ref erence range: 150 - 45 0 K/CU MM. The referen ce range was not u sed to interpret this result as normal/abnor mal. Lab Interpretation (test Normal code = 99333-6) [facility]ATE[facility] [id number] 17:44:21 Test Item Value Reference Range Interpretation Comments PLATELET COUNT (BEAKER) (test 181 K/CU MM 150-450 code = 756) CBC W/PLT COUNT & AUTO [id number] 17:44:19 Test Item Value Reference Range Interpretation [...] PERCENT (BEAKER) (test code = 2801) POCT-GLUCOSE [id number] 17:28:46 Test Item Value Reference Range Interpretation Comments POC-GLUCOSE METER 94 mg/dL 70-110 : [facility] ([facility]ER[facility] (test code = [facility] [place], 1538) 65181: Automotive Service Management Teacher/Techni santana ID = [id number] for Franco Shaikh Comprehensive metabolic [id number] 14:01:24 Test Item Value Reference Range Interpretation Comments Protein, Total (test 7.2 See_Comment Specime n slightly code = 2885-2) hemolyzed [Automated message] The system which generated this result transmit carson reference range : 6.0 - 8.3 gm/dL . The reference range was not u sed to interpret th is result as normal/abnormal . Albumin (test code = 3.9 g/dL 3.5-5.0 Specime n slightly 20219-8) hemolyzed Alkaline Phosphatase 10 U/L 40-150 L (test code = 6768-6) Total Bilirubin (test 0.5 mg/dL 0.2-1.2 Specim en slightly code = 1975-2) hemolyzed Sodium (test code = 139 meq/L 581-814 7469-2) Potassium (test code 5.0 meq/L 3.5-5.1 Specime n slightly = 2823-3) hemolyzed Chloride (test code = 112 meq/L 98-107 H 207-0) CO2 (test code = 18 meq/L 22-29 L 8-9) BUN (test code = 40 mg/dL 7-21 H 3094-0) Creatinine (test code 1.33 mg/dL 0.57-1.25 H Specim en slightly = 2160-0) hemolyzed Glucose (test code = 112 mg/dL 70-105 H 2345-7) Calcium (test code = 9.5 mg/dL 8.4-10.2 48417-0) AST (test code = 30 U/L 5-34 Specimen sl ightly 1920-8) hemolyzed ALT (test code = 27 U/L 6-55 Specimen sl ightly 1742-6) hemolyzed EGFR (test code = 38 mL/min/1.73 [place] [address]-1) NOT ACCURATE CREATININE CLEARANCE IN PREDICTING GLOMERULAR FILTRATION RATE . ESTIMATED GFR I S NOT APPLICABLE FOR DIALYSIS PATIEN TS. KAILA (test code = KAILA) Automotive Service Management Teacher ID - laura lauren Lab Interpretation Abnormal (test code = 49918-1) [facility] METABOLIC [id number] 14:01:24 Test Item Value Reference Range Interpretation [...] S NOT APPLICABLE FOR DIALYSIS PATIEN TS. Automotive Service Management Teacher ID Von sanchez wHIGH SENSITIVITY TROPONIN [id number] 13:39:14 Test Item Value Reference Range Interpretation Comments HIGH SENSITIVITY 9 pg/ml See_Comment [Automated message] TROPONIN I (test code = The system which 4398001) generated this result transmitted ref erence range: <=17. Th e reference range was not used to interpr et this result as normal/abnormal . Automotive Service Management Teacher ID - laura wThe WHITESMITH STAT High Sensitivity Troponin-I results should be used in conjunction with other diagnostic information such as ECG, clinical observations and information, and patient symptoms to aid in the diagnosis of OK.RAD, CHEST, 1 VIEW, NON [id number] 12:55:00Reason for exam:- >chest painShould this be performed at the bedside?->Yes [facility] 1940 Sex: FFINAL [...] Godwin Verified Date/Time: 06/02/2021 12:55:51 Reading Location: [facility] Radiology Reading Room -COV2/RT-PCR ([facility])2021-05-08 17:21:19 Test Item Value Reference Range Interpretation Comments SARS-COV2/RT-PCR (test Negative Not Detected, Negative, code = 5353289) See external report for linked test SARS-COV-2 PERFORMING LAB [facility] (test code = 5750562) Negative result for this test determines that [...] of the Act.Fact Sheet for Healthcare Prov iders:https://www.MedHab/sites/default/files/product/documents/Fact_Sheet_HC _Tsjupbqse_Ykwy_QQXI-WfW-5.pdfFact Sheet for Healthcare Patients:https://www.MedHab/sites/default/files/product/docume nts/Waku_Gayec_Axxouiff_Coga_TOMR-NyC-4.pdfPerforming Laboratory:[facility], [place] [address]COTUC METABOLIC PANEL 2021-05-08 13:33:54 Test Item Value [...] S NOT APPLICABLE FOR DIALYSIS PATIEN TS. Automotive Service Management Teacher ID - ADMINCBC W/PLT COUNT & AUTO [id number] 13:10:34 Test Item Value Reference Range Interpretation [...] PERCENT (BEAKER) (test code = 2801) SARS-COV2/RT-PCR ([facility])2019-10-13 21:12:00 Test Item Value Reference Range Interpretation Comments SARS-COV2/RT-PCR (test code = Positive Not Detected, Negative A A 9009846) SARS-COV-2 PERFORMING LAB [facility] (test code = 9559944) Results are for the detection of SARS-CoV-2 [...] 564(g) of the Act.Fact Sheet for Healthcare Providers:https://www.BitInstant.[employer]/sites/default/files/product/documen ts/Yfwl_Wyelh_XO_Fyylfjmfw_Oszv_MCFR-SyE-3.pdfFact Sheet for Healthcare Patients:https://www.[employer] om/sites/default/files/product/documents/Ieyk_Idkft_Wvknoung_Uxkf_EVNT-GdK-4.pdf Performing Laboratory:[place] [address] [place], [place] [address]QGVTWAWNC CULTURE + GRAM [id number] 17:14:00 Test Item Value Reference Range Interpretation [...] gram negative (BEAKER) (test code rods = 990077) POCT-GLUCOSE [id number] 06:16:00 Test Item Value Reference Range Interpretation Comments POC-GLUCOSE METER 119 mg/dL 70-110 H : TESTED A T [facility] 7200 (BEAKER) (test code CAMBRIDG E BLDG A, = 1538) [facility] 7703 0: Automotive Service Management Teacher/Techni santana ID = [id number] for ABI RAMOS BASIC METABOLIC [id number] 02:40:00 Test Item Value Reference Range Interpretation [...] APPLICABLE FOR DIALYSIS PATIEN TS. BASIC METABOLIC [id number] 09:47:00 Test Item Value Reference Range Interpretation [...] NOT APPLICABLE FOR DIALYSIS PATIEN TS. POCT-GLUCOSE [id number] 06:23:00 Test Item Value Reference Range Interpretation Comments POC-GLUCOSE METER 120 mg/dL 70-110 H : TESTED A T [facility] 7200 (BEAKER) (test code PRABHJOT Ambrosio, = 1538) [place] 7703 0: Automotive Service Management Teacher/Techni santana ID = [id number] for HAY JIMENEZ POCT-GLUCOSE [id number] 21:03:00 Test Item Value Reference Range Interpretation Comments POC-GLUCOSE METER 174 mg/dL 70-110 H : TESTED A T [facility] 7200 (BEAKER) (test code CAMBSHABBIRG E BLDG A, = 1538) [place] 7703 0: Automotive Service Management Teacher/Techni santana ID = [id number] for HAY JIMENEZ [id number] 12:10:00 Test Item Value Reference Range Interpretation Comments MAGNESIUM (BEAKER) (test code = 2.1 mg/dL 1.6-2.6 627) COMPREHENSIVE METABOLIC [id number] 12:10:00 Test Item Value Reference Range Interpretation [...] PATIEN TS. CBC W/PLT COUNT & AUTO [id number] 12:08:00 Test Item Value Reference Range Interpretation [...] PERCENT (BEAKER) (test code = 2801) POCT-GLUCOSE [id number] 06:28:00 Test Item Value Reference Range Interpretation Comments POC-GLUCOSE METER 128 mg/dL 70-110 H : TESTED A T [facility] 7200 (BEAKER) (test code PRABHJOT Dickens BLDG A, = 1538) [place] [address] 0: Automotive Service Management Teacher/Techni santana ID = [id number] for TIARA PIERRE POCT-GLUCOSE [id number] 06:39:00 Test Item Value Reference Range Interpretation Comments POC-GLUCOSE METER 116 mg/dL 70-110 H : TESTED A T [facility] 7200 (BEAKER) (test code [place] E BLDG A, = 1538) [place] [address] 0: Automotive Service Management Teacher/Techni santana ID = [id number] for WICHOTIARA CAGLE POCT-GLUCOSE [id number] 21:34:00 Test Item Value Reference Range Interpretation Comments POC-GLUCOSE METER 145 mg/dL 70-110 H : TESTED A T [facility] 7200 (BEAKER) (test code [place] E BLDG A, = 1538) [place] [address] 0: Automotive Service Management Teacher/Techni santana ID = [id number] for WICHOTIARA CAGLE POCT-GLUCOSE [id number] 16:44:00 Test Item Value Reference Range Interpretation Comments POC-GLUCOSE METER 150 mg/dL 70-110 H : TESTED A T [facility] 7200 (BEAKER) (test code [place] E BLDG A, = 1538) [place] [address] 0: Automotive Service Management Teacher/Techni santana ID = [id number] for JONNIE QUINTERO POCT-GLUCOSE [id number] 11:48:00 Test Item Value Reference Range Interpretation Comments POC-GLUCOSE METER 133 mg/dL 70-110 H : TESTED A T [facility] 7200 (BEAKER) (test code CAM[place]G E BLDG A, = 1538) [place] [address] 0: Automotive Service Management Teacher/Techni santana ID = [id number] for JONNIE QUINTERO POCT-GLUCOSE [id number] 07:14:00 Test Item Value Reference Range Interpretation Comments POC-GLUCOSE METER 118 mg/dL 70-110 H : TESTED A T [facility] 7200 (BEAKER) (test code [place] E BLDG A, = 1538) [place] [address] 0: Automotive Service Management Teacher/Techni santana ID = [id number] for WICHOTIARA CAGLE POCT-GLUCOSE [id number] 23:21:00 Test Item Value Reference Range Interpretation Comments POC-GLUCOSE METER 214 mg/dL 70-110 H : TESTED A T [facility] 7200 (BEAKER) (test code CAM[place]G E BLDG A, = 1538) [place] [address] 0: Automotive Service Management Teacher/Techni santana ID = [id number] for TIARA PIERRE POCT-GLUCOSE [id number] 16:15:00 Test Item Value Reference Range Interpretation Comments POC-GLUCOSE METER 169 mg/dL 70-110 H : TESTED A T [facility] 7200 (BEAKER) (test code [place] E BLDG A, = 1538) [place] [address] 0: Automotive Service Management Teacher/Techni santana ID = [id number] for OMIW ANGELA, SYRIETA POCT-GLUCOSE [id number] 11:21:00 Test Item Value Reference Range Interpretation Comments POC-GLUCOSE METER 164 mg/dL 70-110 H : TESTED A T [facility] 7200 (BEAKER) (test code [place] E BLDG A, = 1538) [place] [address] 0: Automotive Service Management Teacher/Techni santana ID = [id number] for OMIW ANGELA, SYRIETA POCT-GLUCOSE [id number] 06:46:00 Test Item Value Reference Range Interpretation Comments POC-GLUCOSE METER 119 mg/dL 70-110 H : TESTED A T [facility] 7200 (BEAKER) (test code CAM[place]G E BLDG A, = 1538) [place] [address] 0: Automotive Service Management Teacher/Techni santana ID = [id number] for NICA , HAY POCT-GLUCOSE [id number] 20:54:00 Test Item Value Reference Range Interpretation Comments POC-GLUCOSE METER 174 mg/dL 70-110 H : TESTED A T [facility] 7200 (BEAKER) (test code [place] E BLDG A, = 1538) [place] [address] 0: Automotive Service Management Teacher/Techni santana ID = [id number] for NICA , HAY POCT-GLUCOSE [id number] 17:47:00 Test Item Value Reference Range Interpretation Comments POC-GLUCOSE METER 111 mg/dL 70-110 H : TESTED A T [facility] 7200 (BEAKER) (test code [place] E BLDG A, = 1538) [place] [address] 0: Automotive Service Management Teacher/Techni santana ID = [id number] for OMIW ANGELA, SYRIETA RAD, ABDOMEN/KUB, 1 VIEW [id number] 14:15:00Reason for exam:->constipation, abdominal painShould this be [...] the colon without bowel dilatation. Signed: Leigh Keeneeport Verified Date/Time: 09/24/2019 14:15:34 Reading Location: [facility] Reading Room [address] [place] [address] RAD, CHEST, 1 VIEW, NON [id number] 13:22:00Reason for exam:->h/o CABG, f/u venous congestion [...] MDReport Verified Date/Time: 09/24/2019 13:22:42 Reading Location: [facility] Reading Room [address] [place] [address] POCT-GLUCOSE [id number] 12:17:00 Test Item Value Reference Range Interpretation Comments POC-GLUCOSE METER 193 mg/dL 70-110 H : TESTED A T [facility] (BEAKER) (test code CAMBRIDG E BLDG A, = 1538) [place] [address] 0: Automotive Service Management Teacher/Techni santana ID = [id number] for MUSA FLOWERA POCT-GLUCOSE [id number] 06:22:00 Test Item Value Reference Range Interpretation Comments POC-GLUCOSE METER 130 mg/dL 70-110 H : TESTED A T [facility] (BEAKER) (test code CAMBRIDG E BLDG A, = 1538) [place] [address] 0: Automotive Service Management Teacher/Techni santana ID = [id number] for CHAR RAMOSA POCT-GLUCOSE [id number] 20:43:00 Test Item Value Reference Range Interpretation Comments POC-GLUCOSE METER 196 mg/dL 70-110 H : TESTED A T [facility] (BEAKER) (test code CAMBRIDG E BLDG A, = 1538) [place] [address] 0: Automotive Service Management Teacher/Techni santana ID = [id number] for SHAN RAMOSRINA POCT-GLUCOSE [id number] 17:05:00 Test Item Value Reference Range Interpretation Comments POC-GLUCOSE METER 163 mg/dL 70-110 H : TESTED A T [facility] (BEAKER) (test code CAMBRIDG E BLDG A, = 1538) [place] [address] 0: Automotive Service Management Teacher/Techni santana ID = [id number] for NWAJ IAKU, JACKY POCT-GLUCOSE [id number] 12:02:00 Test Item Value Reference Range Interpretation Comments POC-GLUCOSE METER 204 mg/dL 70-110 H : TESTED A T [facility] (BEAKER) (test code CAMBRIDG E BLDG A, = 1538) [place] [address] 0: Automotive Service Management Teacher/Techni santana ID = [id number] for NWAJ IAKU, JACKY POCT-GLUCOSE [id number] 06:22:00 Test Item Value Reference Range Interpretation Comments POC-GLUCOSE METER 127 mg/dL 70-110 H : TESTED A T [facility] (BEAKER) (test code CAMBRIDG E BLDG A, = 1538) [place] [address] 0: Automotive Service Management Teacher/Techni santana ID = [id number] for ABI RAMOS POCT-GLUCOSE [id number] 20:36:00 Test Item Value Reference Range Interpretation Comments POC-GLUCOSE METER 236 mg/dL 70-110 H : TESTED A T [facility] (BEAKER) (test code CAMBRIDG E BLDG A, = 1538) [place] [address] 0: Automotive Service Management Teacher/Techni santana ID = [id number] for ABI RAMOS POCT-GLUCOSE [id number] 16:53:00 Test Item Value Reference Range Interpretation Comments POC-GLUCOSE METER 205 mg/dL 70-110 H : TESTED A T [facility] (BEAKER) (test code CAMBRIDG E BLDG A, = 1538) [place] [address] 0: Automotive Service Management Teacher/Techni santana ID = [id number] for JONNIE QUINTERO POCT-GLUCOSE [id number] 12:20:00 Test Item Value Reference Range Interpretation Comments POC-GLUCOSE METER 201 mg/dL 70-110 H : TESTED A T [facility] (BEAKER) (test code CAMBRIDG E BLDG A, = 1538) [place] [address] 0: Automotive Service Management Teacher/Techni santana ID = [id number] for JONNIE QUINTERO POCT-GLUCOSE [id number] 07:11:00 Test Item Value Reference Range Interpretation Comments POC-GLUCOSE METER 134 mg/dL 70-110 H : TESTED A T [facility] (BEAKER) (test code CAMBRIDG E BLDG A, = 1538) [place] [address] 0: Automotive Service Management Teacher/Techni santana ID = [id number] for TIARA PIERRE VITAMIN B12 AND [id number] 06:31:00 Test Item Value Reference Range Interpretation Comments VITAMIN B12 (BEAKER) (test code = 856 pg/mL 211911 774) FOLATE (BEAKER) (test code = 362) 12.43 ng/mL >=5.40 TSH/FREE T4 IF [id number] 05:57:00 Test Item Value Reference Range Interpretation Comments THYROID STIMULATING HORMONE 1.234 uIU/mL 0.350-5.500 (BEAKER) (test code = 772) POCT-GLUCOSE [id number] 20:59:00 Test Item Value Reference Range Interpretation Comments POC-GLUCOSE METER 225 mg/dL 70-110 H : TESTED A T [facility] (BEAKER) (test code CAMBRIDG E BLDG A, = 1538) [place] [address] 0: Automotive Service Management Teacher/Techni santana ID = [id number] for TIARA PIERRE POCT-GLUCOSE [id number] 16:55:00 Test Item Value Reference Range Interpretation Comments POC-GLUCOSE METER 198 mg/dL 70-110 H : TESTED A T [facility] (BEAKER) (test code CAMBRIDG E BLDG A, = 1538) [place] [address] 0: Automotive Service Management Teacher/Techni santana ID = [id number] for AMIE BEGUM, JUCEL ADAM POCT-GLUCOSE [id number] 12:12:00 Test Item Value Reference Range Interpretation Comments POC-GLUCOSE METER 254 mg/dL 70-110 H : TESTED A T [facility] (BEAKER) (test code CAMBRIDG E BLDG A, = 1538) [place] [address] 0: Automotive Service Management Teacher/Techni santana ID = [id number] for AMIE BEGUM, JUCEL ADAM POCT-GLUCOSE [id number] 06:08:00 Test Item Value Reference Range Interpretation Comments POC-GLUCOSE METER 132 mg/dL 70-110 H : TESTED A T [facility] (BEAKER) (test code CAMBRIDG E BLDG A, = 1538) [place] [address] 0: Automotive Service Management Teacher/Techni santana ID = [id number] for Carolyn sirena [place] COMPREHENSIVE METABOLIC [id number] 05:52:00 Test Item Value Reference Range Interpretation [...] S NOT APPLICABLE FOR DIALYSIS PATIEN TS. [id number] 05:52:00 Test Item Value Reference Range Interpretation Comments PHOSPHORUS (BEAKER) (test code = 3.3 mg/dL 2.3-4.7 604) CBC W/PLT COUNT & AUTO [id number] 05:36:00 Test Item Value Reference Range Interpretation [...] PERCENT (BEAKER) (test code = 2801) POCT-GLUCOSE [id number] 20:47:00 Test Item Value Reference Range Interpretation Comments POC-GLUCOSE METER 232 mg/dL 70-110 H : TESTED A T [facility] (BEAKER) (test code CAMBRIDG E BLDG A, = 1538) [place] [address] 0: Automotive Service Management Teacher/Techni santana ID = [id number] for HAY JIMENEZ POCT-GLUCOSE [id number] 16:39:00 Test Item Value Reference Range Interpretation Comments POC-GLUCOSE METER 211 mg/dL 70-110 H : TESTED A T [facility] (BEAKER) (test code CAMBRIDG E BLDG A, = 1538) [place] [address] 0: Automotive Service Management Teacher/Techni santana ID = [id number] for AARON ERA, PARVEEN POCT-GLUCOSE [id number] 11:51:00 Test Item Value Reference Range Interpretation Comments POC-GLUCOSE METER 195 mg/dL 70-110 H : TESTED A T [facility] (BEAKER) (test code CAMBRIDG E BLDG A, = 1538) [place] [address] 0: Automotive Service Management Teacher/Techni santana ID = [id number] for AARON ERA, PARVEEN POCT-GLUCOSE [id number] 06:12:00 Test Item Value Reference Range Interpretation Comments POC-GLUCOSE METER 128 mg/dL 70-110 H : TESTED A T [facility] (BEAKER) (test code CAMBRIDG E BLDG A, = 1538) [place] [address] 0: Automotive Service Management Teacher/Techni santana ID = [id number] for NICA , HAY [id number] 05:48:00 Test Item Value Reference Range Interpretation Comments PHOSPHORUS (BEAKER) (test code = 2.6 mg/dL 2.3-4.7 604) POCT-GLUCOSE [id number] 20:39:00 Test Item Value Reference Range Interpretation Comments POC-GLUCOSE METER 189 mg/dL 70-110 H : TESTED A T [facility] (BEAKER) (test code CAMBRIDG E BLDG A, = 1538) [place] [address] 0: Automotive Service Management Teacher/Techni santana ID = [id number] for NICA , HAY POCT-GLUCOSE [id number] 17:03:00 Test Item Value Reference Range Interpretation Comments POC-GLUCOSE METER 175 mg/dL 70-110 H : TESTED A T [facility] (BEAKER) (test code CAMBRIDG E BLDG A, = 1538) [place] [address] 0: Automotive Service Management Teacher/Techni santana ID = [id number] for NWAShirin IAKU, JACKY POCT-GLUCOSE [id number] 12:14:00 Test Item Value Reference Range Interpretation Comments POC-GLUCOSE METER 142 mg/dL 70-110 H : TESTED A T [facility] (BEAKER) (test code CAMBRIDG E BLDG A, = 1538) [place] [address] 0: Automotive Service Management Teacher/Techni santana ID = [id number] for NWAJ IAKU, JACKY COMPREHENSIVE METABOLIC [id number] 07:05:00 Test Item Value Reference Range Interpretation [...] S NOT APPLICABLE FOR DIALYSIS PATIEN TS. [id number] 07:05:00 Test Item Value Reference Range Interpretation Comments MAGNESIUM (BEAKER) (test code = 1.9 mg/dL 1.6-2.6 627) POCT-GLUCOSE [id number] 06:33:00 Test Item Value Reference Range Interpretation Comments POC-GLUCOSE METER 121 mg/dL 70-110 H : TESTED A T [facility] (BEAKER) (test code CAMBRIDG E BLDG A, = 1538) [place] [address] 0: Automotive Service Management Teacher/Techni santana ID = [id number] for ABI RAMOS CBC W/PLT COUNT & AUTO [id number] 06:24:00 Test Item Value Reference Range Interpretation [...] 0-1 PERCENT (BEAKER) (test code = 2801) [id number] 06:23:00 Test Item Value Reference Range Interpretation Comments PHOSPHORUS (BEAKER) (test code = 2.8 mg/dL 2.3-4.7 604) POCT-GLUCOSE [id number] 20:51:00 Test Item Value Reference Range Interpretation Comments POC-GLUCOSE METER 166 mg/dL 70-110 H : TESTED A T [facility] (BEAKER) (test code CAMBRIDG E BLDG A, = 1538) [facility] [place] [address] 0: Automotive Service Management Teacher/Techni santana ID = [id number] for ABI RAMOS POCT-GLUCOSE [id number] 18:21:00 Test Item Value Reference Range Interpretation Comments POC-GLUCOSE METER 159 mg/dL 70-110 H : TESTED A T [facility] (BEAKER) (test code CAMBRIDG E BLDG A, = 1538) [place] [address] 0: Automotive Service Management Teacher/Techni santana ID = [id number] for ANNA IAYOSVANY, JACKY FL, [id number] 14:37:00Reason for exam:->gerdFINAL REPORT Barium esophagogram Clinical [...] gastroesophageal reflux. Signed: Karin Henao Verified Date/Time: 09/18/201914:37:01 Reading Location: [address] Consult Reading Room POCT-GLUCOSE [id number] 14:31:00 Test Item Value Reference Range Interpretation Comments POC-GLUCOSE METER 166 mg/dL 70-110 H : TESTED A T [facility] (BEAKER) (test code = BERTNE R [facility] [place], 1538) [address]: Automotive Service Management Teacher/Techni santana ID = [id number] for MELISSA GILLILAND FL, ESOPH, SWALLOW FUNCTION, WITH CINE OR [id number] 13:23:00MBSS w/robin + esophagram as feasibleReason for [...] Henao Verified Date/Time: 09/18/2019 13:23:18 Reading Location: [address] Consult Reading Room -GLUCOSE [id number] 11:13:00 Test Item Value Reference Range Interpretation Comments POC-GLUCOSE METER 115 mg/dL 70-110 H : TESTED A T [facility] 6720 (BEAKER) (test code = KAVYA Sabrina [facility] [place], 1538) [address]: Automotive Service Management Teacher/Techni santana ID = [id number] for MELISSA GILLILAND CBC W/PLT COUNT & AUTO [id number] 11:02:00 Test Item Value Reference Range Interpretation [...] 0-1 PERCENT (BEAKER) (test code = 2801) [id number] 06:59:00 Test Item Value Reference Range Interpretation Comments PHOSPHORUS (BEAKER) (test code = 2.1 mg/dL 2.3-4.7 L 604) Automotive Service Management Teacher ID - DANO [id number] 06:59:00 Test Item Value Reference Range Interpretation Comments MAGNESIUM (BEAKER) (test code = 2.0 mg/dL 1.6-2.6 627) Automotive Service Management Teacher ID - DANO MBASIC METABOLIC [id number] 06:59:00 Test Item Value Reference Range Interpretation [...] S NOT APPLICABLE FOR DIALYSIS PATIEN TS. Automotive Service Management Teacher ID - DANO MRAD, CHEST, 1 VIEW, NON [id number] 04:57:00Reason for exam:->CTShould this be performed at [...] findings: None. Signed: Abhinav Cuevas MDReport Verified Date/Time: 09/18/2019 04:57:13 POCT-GLUCOSE [id number] 21:54:00 Test Item Value Reference Range Interpretation Comments POC-GLUCOSE METER 164 mg/dL 70-110 H : TESTED A T [facility]20 (MileIQ) (test code = KAVYA MCKEON, 1538) [address]: Automotive Service Management Teacher/Techni santana ID = [id number] for BIANCA RICHARDS POCT-GLUCOSE [id number] 21:34:00 Test Item Value Reference Range Interpretation Comments POC-GLUCOSE METER 165 mg/dL 70-110 H : TESTED A T [facility] (BEVerical) (test code = KAVYA Bennett [facility] [place], 1538) [address]: Automotive Service Management Teacher/Techni santana ID = [id number] for MELISSA GILLILAND URINALYSIS W/ REFLEX URINE [id number] 17:29:00 Test Item Value Reference Range Interpretation [...] = 1584) SOURCE(BEAKER) (test code = 2795) Automotive Service Management Teacher ID - [auto]Automotive Service Management Teacher ID - techPOCT-GLUCOSE [id number] 12:48:00 Test Item Value Reference Range Interpretation Comments POC-GLUCOSE METER 168 mg/dL 70-110 H : TESTED A T [facility] (BEAKER) (test code = [facility] Sabrina [facility] [place], 1538) [address]: Automotive Service Management Teacher/Techni santana ID = [id number] for MELISSA GILLILAND RAD, CHEST, 1 VIEW, NON [id number] 08:52:00Reason for exam:->CTShould this be performed at [...] MDReport Verified Date/Time: 09/17/2019 08:52:23 Reading Location: [facility] Radiology ReadingRoom POCT-GLUCOSE [id number] 08:29:00 Test Item Value Reference Range Interpretation Comments POC-GLUCOSE METER 102 mg/dL 70-110 : [facility] (test code = KAVYA Sabrina [facility] [place], 1538) [address]: Automotive Service Management Teacher/Techni santana ID = [id number] for MELISSA GILLILAND [id number] 06:46:00 Test Item Value Reference Range Interpretation Comments PHOSPHORUS (BEAKER) (test code = 1.9 mg/dL 2.3-4.7 L 604) Automotive Service Management Teacher ID - YELENA [id number] 06:46:00 Test Item Value Reference Range Interpretation Comments MAGNESIUM (BEAKER) (test code = 2.3 mg/dL 1.6-2.6 627) Automotive Service Management Teacher ID - LEONIDAYA LBASIC METABOLIC [id number] 06:46:00 Test Item Value Reference Range Interpretation [...] S NOT APPLICABLE FOR DIALYSIS PATIEN TS. Automotive Service Management Teacher ID - PIAYA LCBC W/PLT COUNT & AUTO [id number] 06:20:00 Test Item Value Reference Range Interpretation [...] PERCENT (BEAKER) (test code = 2801) POCT-GLUCOSE [id number] 21:06:00 Test Item Value Reference Range Interpretation Comments POC-GLUCOSE METER 172 mg/dL 70-110 H : TESTED A T [facility] 6720 (BEAKER) (test code = [facility], 1538) [address]: Automotive Service Management Teacher/Techni santana ID = [id number] for BIANCA RICHARDS POCT-GLUCOSE [id number] 12:38:00 Test Item Value Reference Range Interpretation Comments POC-GLUCOSE METER 181 mg/dL 70-110 H : TESTED A T [facility] 6720 (BEAKER) (test code = [facility], 1538) [address]: Automotive Service Management Teacher/Techni santana ID = [id number] for KARUNA DEVRIESL, BRITTANY RAD, CHEST, 1 VIEW, NON [id number] 09:32:00Reason for exam:->CTShould this be performed at [...] MDReport Verified Date/Time: 09/16/2019 09:32:30 Reading Location: [facility] Reading Room [id number] 04:09:00 Test Item Value Reference Range Interpretation Comments PHOSPHORUS (BEAKER) (test code = 3.2 mg/dL 2.3-4.7 604) Automotive Service Management Teacher ID - DANO [id number] 04:09:00 Test Item Value Reference Range Interpretation Comments MAGNESIUM (BEAKER) (test code = 2.2 mg/dL 1.6-2.6 627) Automotive Service Management Teacher ID - DANO MBASIC METABOLIC [id number] 04:09:00 Test Item Value Reference Range Interpretation [...] S NOT APPLICABLE FOR DIALYSIS PATIEN TS. Automotive Service Management Teacher ID - DANO [id number] 04:07:00 Test Item Value Reference Range Interpretation [...] WBC 0-0 (test code = 413) CALCIUM, [id number] 03:46:00 Test Item Value Reference Range Interpretation Comments CALCIUM IONIZED (BEAKER) (test 1.14 mmol/L 1.12-1.27 code = 698) PH, BLOOD (BEAKER) (test code = 7.34 1810) POCT-GLUCOSE [id number] 22:42:00 Test Item Value Reference Range Interpretation Comments POC-GLUCOSE METER 180 mg/dL 70-110 H : TESTED A T [facility] 6720 (BEAKER) (test code = KAVYA VANESSA [place], 1538) [address]: Automotive Service Management Teacher/Techni sanatna ID = [id number] for CE RVANTES, PRIYANKA POCT-GLUCOSE [id number] 18:26:00 Test Item Value Reference Range Interpretation Comments POC-GLUCOSE METER 149 mg/dL 70-110 H : TESTED A T [facility] 6720 (BEAKER) (test code = KAVYA Bennett [facility] [place], 1538) [address]: Automotive Service Management Teacher/Techni santana ID = [id number] for BARRENTINE, LB PHEN POCT-GLUCOSE [id number] 15:18:00 Test Item Value Reference Range Interpretation Comments POC-GLUCOSE METER 194 mg/dL 70-110 H : TESTED A T [facility] 6720 (BEAKER) (test code = [facility], 1538) [address]: Automotive Service Management Teacher/Techni santana ID = [id number] for BARRENTINE, LB PHEN CBC (HEMOGRAM ONLY)2019-09-15 [...] WBC 0-0 (test code = 413) POCT-GLUCOSE [id number] 08:26:00 Test Item Value Reference Range Interpretation Comments POC-GLUCOSE METER 87 mg/dL 70-110 : TESTED A T [facility] 6720 (BEAKER) (test code = [facility], 1538) [address]: Automotive Service Management Teacher/Techni santana ID = [id number] for JAIRO BRAVO POCT-GLUCOSE [id number] 06:12:00 Test Item Value Reference Range Interpretation Comments POC-GLUCOSE METER 106 mg/dL 70-110 : TESTED A T [facility] 6720 (BEAKER) (test code = [facility], 1538) 517[address]: Automotive Service Management Teacher/Techni santana ID = [id number] for CE RVANTES, PRIYANKA BLOOD GAS, [id number] 05:38:00 Test Item Value Reference Range Interpretation [...] (test code = 1819) 36.0 % POCT-GLUCOSE [id number] 05:22:00 Test Item Value Reference Range Interpretation Comments POC-GLUCOSE METER 112 mg/dL 70-110 H : TESTED A T [facility] 6720 (BEAKER) (test code = [facility], 1538) 03[address]: Automotive Service Management Teacher/Techni santana ID = [id number] for CE RVANTES, PRIYANKA OXYGEN SATURATION, [id number] 04:44:00 Test Item Value Reference Range Interpretation Comments O2 SATURATION (MEASURED) (BEAKER) 90.6 % (test code = 1455) CALCIUM, [id number] 04:13:00 Test Item Value Reference Range Interpretation Comments CALCIUM IONIZED (BEAKER) (test 1.15 mmol/L 1.12-1.27 code = 698) PH, BLOOD (BEAKER) (test code = 7.34 1810) LACTIC ACID, [id number] 04:04:00 Test Item Value Reference Range Interpretation Comments LACTATE BLOOD ARTERIAL (2) 1.1 mmol/L 0.5-2.2 (BEAKER) (test code = 2874) Automotive Service Management Teacher ID - DANO [id number] 04:04:00 Test Item Value Reference Range Interpretation Comments PHOSPHORUS (BEAKER) (test code = 3.7 mg/dL 2.3-4.7 604) Automotive Service Management Teacher ID - DANO [id number] 04:04:00 Test Item Value Reference Range Interpretation Comments MAGNESIUM (BEAKER) (test code = 2.5 mg/dL 1.6-2.6 627) Automotive Service Management Teacher ID - DANO MBASIC METABOLIC [id number] 04:04:00 Test Item Value Reference Range Interpretation [...] S NOT APPLICABLE FOR DIALYSIS PATIEN TS. Automotive Service Management Teacher ID - DANO [id number] 04:01:00 Test Item Value Reference Range Interpretation [...] 0-0 (BEAKER) (test code = 413) POCT-GLUCOSE [id number] 03:45:00 Test Item Value Reference Range Interpretation Comments POC-GLUCOSE METER 125 mg/dL 70-110 H : TESTED A T [facility] 6720 (BEAKER) (test code = KAVYA MCKEON, 1538) 25782: Automotive Service Management Teacher/Techni santana ID = [id number] for CE RVANTES, PRIYANKA RAD, CHEST, 1 VIEW, NON [id number] 02:16:00while patient is intubated or has chest [...] Ibrahim MDReport Verified Date/Time: 09/15/2019 02:16:54 POCT-GLUCOSE [id number] 01:53:00 Test Item Value Reference Range Interpretation Comments POC-GLUCOSE METER 111 mg/dL 70-110 H : TESTED A T [facility] 6720 (BEAKER) (test code = [facility], 1538) 9[address]: Automotive Service Management Teacher/Techni santana ID = [id number] for CE RVANTES, PRIYANKA POCT-GLUCOSE [id number] 00:23:00 Test Item Value Reference Range Interpretation Comments POC-GLUCOSE METER 140 mg/dL 70-110 H : TESTED A T [facility] 6720 (BEAKER) (test code = [facility], 1538) 406[address]: Automotive Service Management Teacher/Techni santana ID = [id number] for CE RVANTES, PRIYANKA POCT-GLUCOSE [id number] 00:23:00 Test Item Value Reference Range Interpretation Comments POC-GLUCOSE METER 150 mg/dL 70-110 H : TESTED A T [facility] 6720 (BEAKER) (test code = [facility], 1538) 42421: Automotive Service Management Teacher/Techni santana ID = [id number] for CE RVANTES, PRIYANKA POCT-GLUCOSE [id number] 00:23:00 Test Item Value Reference Range Interpretation Comments POC-GLUCOSE METER 129 mg/dL 70-110 H : TESTED A T [facility] 6720 (BEAKER) (test code = [facility], 1538) 61027: Automotive Service Management Teacher/Techni santana ID = [id number] for CE RVED, PRIYANKA POCT-GLUCOSE [id number] 00:23:00 Test Item Value Reference Range Interpretation Comments POC-GLUCOSE METER 143 mg/dL 70-110 H : TESTED A T [facility] 6720 (BEAKER) (test code = [facility] VANESSA [place], 1538) 739[address]: Automotive Service Management Teacher/Techni santana ID = [id number] for CE RVANTES, PRIYANKA RAD, CHEST, 1 VIEW, NON [id number] 22:37:00Reason for exam:->Resp failure/ vent changes madeShould [...] Signed:Chema Ibrahim MDReport Verified Date/Time: 09/14/2019 22:37:51 [id number] 21:29:00 Test Item Value Reference Range Interpretation Comments PHOSPHORUS (BEAKER) (test code = 3.9 mg/dL 2.3-4.7 604) Automotive Service Management Teacher ID - [id number] 21:29:00 Test Item Value Reference Range Interpretation Comments MAGNESIUM (BEAKER) (test code = 2.5 mg/dL 1.6-2.6 627) Automotive Service Management Teacher ID - BSBASIC METABOLIC [id number] 21:29:00 Test Item Value Reference Range Interpretation [...] S NOT APPLICABLE FOR DIALYSIS PATIEN TS. Automotive Service Management Teacher ID - BSLACTIC ACID, [id number] 21:22:00 Test Item Value Reference Range Interpretation Comments LACTATE BLOOD ARTERIAL (2) 1.4 mmol/L 0.5-2.2 (BEAKER) (test code = 2874) Automotive Service Management Teacher ID - [id number] 21:21:00 Test Item Value Reference Range Interpretation [...] for patients wiht mechanical heart valves.BLOOD GAS, [id number] 21:16:00 Test Item Value Reference Range Interpretation [...] (test code = 1819) 36.0 % CALCIUM, [id number] 21:13:00 Test Item Value Reference Range Interpretation Comments CALCIUM IONIZED (BEAKER) (test 1.08 mmol/L 1.12-1.27 L code = 698) PH, BLOOD (BEAKER) (test code = 7.37 1810) OXYGEN SATURATION, [id number] 21:12:00 Test Item Value Reference Range Interpretation [...] (BEAKER) (test code = 413) LACTIC ACID, [id number] 19:08:00 Test Item Value Reference Range Interpretation Comments LACTATE BLOOD 1.0 mmol/L 0.5-2.2 Specimen sligh tly ARTERIAL (2) (BEAKER) hemoly zed (test code = 2874) Automotive Service Management Teacher ID - DBPOCT-GLUCOSE [id number] 19:03:00 Test Item Value Reference Range Interpretation Comments POC-GLUCOSE METER 168 mg/dL 70-110 H : TESTED A T [facility] 6720 (BEAKER) (test code = [facility], 1538) 19519: Automotive Service Management Teacher/Techni santana ID = [id number] for [place] BLOOD GAS, [id number] 18:57:00 Test Item Value Reference Range Interpretation [...] 1819) 40.0 % HGB/HCT (H&H) - STAT [id number] 18:57:00 Test Item Value Reference Range Interpretation Comments HEMOGLOBIN (BEAKER) (test code = 9.0 g/dL 12.0-15.0 L 410) HEMATOCRIT (BEAKER) (test code = 26.0 % 36.0-45.0 L 411) POCT-GLUCOSE [id number] 18:23:00 Test Item Value Reference Range Interpretation Comments POC-GLUCOSE METER 167 mg/dL 70-110 H : TESTED A T [facility] 6720 (BEAKER) (test code = [facility], 1538) 00054: [employer] Service Management Teacher/Techni santana ID = [id number] for KELSEA SANDS BASIC METABOLIC [id number] 17:34:00 Test Item Value Reference Range Interpretation [...] S NOT APPLICABLE FOR DIALYSIS PATIEN TS. [employer] Teacher ID - [id number] 16:37:00 Test Item Value Reference Range Interpretation Comments POTASSIUM (BEAKER) 4.6 meq/L 3.5-5.1 Specimen slightly (test code = 379) hemolyzed [employer] Teacher ID - [id number] 16:37:00 Test Item Value Reference Range Interpretation Comments GLUCOSE RANDOM (BEAKER) (test code 218 mg/dL 70-105 H = 652) [employer] Teacher ID - [id number] 16:12:00 Test Item Value Reference Range Interpretation Comments MAGNESIUM (BEAKER) 2.5 mg/dL 1.6-2.6 Specimen slightly (test code = 627) hemolyzed Autom[employer] Service Management Teacher ID - [id number] 16:12:00 Test Item Value Reference Range Interpretation Comments PHOSPHORUS (BEAKER) 3.3 mg/dL 2.3-4.7 Specimen slightly (test code = 604) hemolyzed Autom[employer] Service Management Teacher ID - BSLACTIC ACID, [id number] 16:09:00 Test Item Value Reference Range Interpretation Comments LACTATE BLOOD 1.0 mmol/L 0.5-2.2 Specimen sligh tly ARTERIAL (2) (BEAKER) hemoly zed (test code = 2874) Autom[employer] Service Management Teacher ID - [id number] 16:05:00 Test Item Value Reference Range Interpretation Comments FIBRINOGEN LEVEL (BEAKER) (test 270 mg/dl 225-434 code = 658) [id number] 16:05:00 Test Item Value Reference Range Interpretation [...] is 2.5-3.5 for patients wiht mechanical heart valves.[id number] 16:05:00 Test Item Value Reference Range Interpretation Comments PARTIAL THROMBOPLASTIN TIME 28.7 seconds 22.5-36.0 (BEAKER) (test code = 760) PROTHROMBIN [id number] 16:04:00 Test Item Value Reference Range Interpretation [...] mechanical heart valves.CBC W/PLT COUNT & AUTO [id number] 15:57:00 Test Item Value Reference Range Interpretation [...] = 2801) RAD, CHEST, 1 VIEW, NON [id number] 15:56:00Reason for exam:->Status post CV Surgery post [...] MDReport Verified Date/Time: 09/14/2019 15:56:42 Reading Location: [facility] Radiology Reading Room PLATELET [id number] 15:53:00 Test Item Value Reference Range Interpretation Comments PLATELET COUNT (BEAKER) (test code 95 K/CU MM 150-450 L = 756) Autom[employer] Service Management Teacher ID - [id number] NA-STAT [id number] 15:43:00 Test Item Value Reference Range Interpretation Comments SODIUM (BEAKER) (test code = 381) 136 meq/L 136-145 POTASSIUM-STAT [id number] 15:43:00 Test Item Value Reference Range Interpretation Comments POTASSIUM (BEAKER) (test code = 4.5 meq/L 3.6-5.5 379) HGB/HCT (H&H) - STAT [id number] 15:43:00 Test Item Value Reference Range Interpretation Comments HEMOGLOBIN (BEAKER) (test code = 10.2 g/dL 12.0-15.0 L 410) HEMATOCRIT (BEAKER) (test code = 30.0 % 36.0-45.0 L 411) BLOOD GAS, [id number] 15:43:00 Test Item Value Reference Range Interpretation [...] (test code = 1819) 50.0 % GLUCOSE-STAT [id number] 15:43:00 Test Item Value Reference Range Interpretation Comments GLUCOSE RANDOM (BEAKER) (test code 221 mg/dL 70-110 H = 652) BASIC METABOLIC [id number] 15:43:00 Test Item Value Reference Range Interpretation [...] S NOT APPLICABLE FOR DIALYSIS PATIEN TS. Autom[employer] Service Management Teacher ID - [id number] 15:42:00 Test Item Value Reference Range Interpretation Comments PHOSPHORUS (BEAKER) (test code = 3.9 mg/dL 2.3-4.7 604) Autom[employer] Service Management Teacher ID - BSOXYGEN SATURATION, [id number] 15:41:00 Test Item Value Reference Range Interpretation Comments O2 SATURATION (MEASURED) (BEAKER) 78.0 % (test code = 1455) CALCIUM, [id number] 15:41:00 Test Item Value Reference Range Interpretation Comments CALCIUM IONIZED (BEAKER) (test 1.15 mmol/L 1.12-1.27 code = 698) PH, BLOOD (BEAKER) (test code = 7.36 1810) [id number] 14:22:00 Test Item Value Reference Range Interpretation Comments ACTIVATED CLOTTING TIME 109 sec : 74 -137 seconds, (BEAKER) (test code = Baseli ne: TESTED AT 441) [address], [facility] 30: Automotive Service Management Teacher/Techni santana ID = [id number] for NG VERÓNICA, VERONICA [id number] 14:22:00 Test Item Value Reference Range Interpretation Comments ACTIVATED CLOTTING TIME 621 sec : 74 -137 seconds, (BEAKER) (test code = Baseli ne: TESTED AT 441) [address], [facility] 30: Automotive Service Management Teacher/Techni santana ID = [id number] for NG VERÓNICA, VERONICA [id number] 14:22:00 Test Item Value Reference Range Interpretation Comments ACTIVATED CLOTTING TIME 505 sec : 74 -137 seconds, (BEAKER) (test code = Baseli ne: TESTED AT 441) [address], [facility] 30: Autom[employer] Service Management Teacher/Techni santana ID = [id number] for NG VERÓNICA, VERONICA [id number] 14:22:00 Test Item Value Reference Range Interpretation Comments ACTIVATED CLOTTING TIME 406 sec : 74 -137 seconds, (BEAKER) (test code = Baseli ne: TESTED AT 441) [address], [facility] 30: Autom[employer] Service Management Teacher/Techni santana ID = [id number] for NG VERÓNICA, VERONICA BLOOD GAS, [id number] 14:16:00 Test Item Value Reference Range Interpretation [...] code = 1819) 100.0 % SODIUM NA-STAT [id number] 14:16:00 Test Item Value Reference Range Interpretation Comments SODIUM (BEAKER) (test code = 381) 133 meq/L 136-145 L GLUCOSE-STAT [id number] 14:16:00 Test Item Value Reference Range Interpretation Comments GLUCOSE RANDOM (BEAKER) (test code 203 mg/dL 70-110 H = 652) HGB/HCT (H&H) - STAT [id number] 14:16:00 Test Item Value Reference Range Interpretation Comments HEMOGLOBIN (BEAKER) (test code = 8.8 g/dL 12.0-15.0 L 410) HEMATOCRIT (BEAKER) (test code = 26.0 % 36.0-45.0 L 411) POTASSIUM-STAT [id number] 14:15:00 Test Item Value Reference Range Interpretation Comments POTASSIUM (BEAKER) (test code = 4.8 meq/L 3.6-5.5 379) BLOOD GAS, [id number] 13:46:00 Test Item Value Reference Range Interpretation [...] (test code = 1819) 100.0 % GLUCOSE-STAT [id number] 13:46:00 Test Item Value Reference Range Interpretation Comments GLUCOSE RANDOM (BEAKER) (test code 216 mg/dL 70-110 H = 652) HGB/HCT (H&H) - STAT [id number] 13:46:00 Test Item Value Reference Range Interpretation Comments HEMOGLOBIN (BEAKER) (test code = 7.2 g/dL 12.0-15.0 L 410) HEMATOCRIT (BEAKER) (test code = 21.0 % 36.0-45.0 L 411) SODIUM NA-STAT [id number] 13:45:00 Test Item Value Reference Range Interpretation Comments SODIUM (BEAKER) (test code = 381) 135 meq/L 136-145 L POTASSIUM-STAT [id number] 13:45:00 Test Item Value Reference Range Interpretation Comments POTASSIUM (BEAKER) (test code = 5.0 meq/L 3.6-5.5 379) POTASSIUM-STAT [id number] 13:11:00 Test Item Value Reference Range Interpretation Comments POTASSIUM (BEAKER) (test code = 5.4 meq/L 3.6-5.5 379) BLOOD GAS, [id number] 13:11:00 Test Item Value Reference Range Interpretation [...] (test code = 1819) 60.0 % GLUCOSE-STAT [id number] 13:11:00 Test Item Value Reference Range Interpretation Comments GLUCOSE RANDOM (BEAKER) (test code 209 mg/dL 70-110 H = 652) SODIUM NA-STAT [id number] 13:11:00 Test Item Value Reference Range Interpretation Comments SODIUM (BEAKER) (test code = 381) 132 meq/L 136-145 L HGB/HCT (H&H) - STAT [id number] 13:11:00 Test Item Value Reference Range Interpretation Comments HEMOGLOBIN (BEAKER) (test code = 6.7 g/dL 12.0-15.0 L 410) HEMATOCRIT (BEAKER) (test code = 20.0 % 36.0-45.0 L 411) BLOOD GAS, [id number] 12:53:00 Test Item Value Reference Range Interpretation [...] (test code = 1819) 60.0 % GLUCOSE-STAT [id number] 12:53:00 Test Item Value Reference Range Interpretation Comments GLUCOSE RANDOM (BEAKER) (test code 207 mg/dL 70-110 H = 652) SODIUM NA-STAT [id number] 12:53:00 Test Item Value Reference Range Interpretation Comments SODIUM (BEAKER) (test code = 381) 132 meq/L 136-145 L HGB/HCT (H&H) - STAT [id number] 12:53:00 Test Item Value Reference Range Interpretation Comments HEMOGLOBIN (BEAKER) (test code = 6.2 g/dL 12.0-15.0 L 410) HEMATOCRIT (BEAKER) (test code = 18.0 % 36.0-45.0 L 411) POTASSIUM-STAT [id number] 12:52:00 Test Item Value Reference Range Interpretation Comments POTASSIUM (BEAKER) (test code = 4.9 meq/L 3.6-5.5 379) SODIUM NA-STAT [id number] 11:16:00 Test Item Value Reference Range Interpretation Comments SODIUM (BEAKER) (test code = 381) 137 meq/L 136-145 POTASSIUM-STAT [id number] 11:16:00 Test Item Value Reference Range Interpretation Comments POTASSIUM (BEAKER) (test code = 4.1 meq/L 3.6-5.5 379) BLOOD GAS, [id number] 11:16:00 Test Item Value Reference Range Interpretation [...] (test code = 1819) 100.0 % GLUCOSE-STAT [id number] 11:16:00 Test Item Value Reference Range Interpretation Comments GLUCOSE RANDOM (BEAKER) (test code 127 mg/dL 70-110 H = 652) HGB/HCT (H&H) - STAT [id number] 11:16:00 Test Item Value Reference Range Interpretation Comments HEMOGLOBIN (BEAKER) (test code = 9.8 g/dL 12.0-15.0 L 410) HEMATOCRIT (BEAKER) (test code = 29.0 % 36.0-45.0 L 411) COMPREHENSIVE METABOLIC [id number] 06:32:00 Test Item Value Reference Range Interpretation [...] S NOT APPLICABLE FOR DIALYSIS PATIEN TS. Automotive Service Management Teacher ID - DANO [id number] 05:51:00 Test Item Value Reference Range Interpretation Comments MAGNESIUM (BEAKER) (test code = 2.1 mg/dL 1.6-2.6 627) Automotive Service Management Teacher ID - DANO [id number] 05:50:00 Test Item Value Reference Range Interpretation Comments MAGNESIUM (BEAKER) (test code = 2.1 mg/dL 1.6-2.6 627) Automotive Service Management Teacher ID - DANO MBASIC METABOLIC [id number] 05:50:00 Test Item Value Reference Range Interpretation [...] S NOT APPLICABLE FOR DIALYSIS PATIEN TS. [id number] 05:03:00 Test Item Value Reference Range Interpretation Comments PARTIAL THROMBOPLASTIN TIME 89.6 seconds 22.5-36.0 H (BEAKER) (test code = 760) CBC W/PLT COUNT & AUTO [id number] 04:53:00 Test Item Value Reference Range Interpretation [...] = 2801) CBC W/PLT COUNT & AUTO [id number] 04:50:00 Test Item Value Reference Range Interpretation [...] PERCENT (BEAKER) (test code = 2801) SARS-COV2/RT-PCR ([facility])2019-09-13 18:53:00 Test Item Value Reference Range Interpretation Comments SARS-COV2/RT-PCR (test Not Detected Not Detected, Negative code = 1731629) SARS-COV-2 PERFORMING LAB [facility] (test code = 5112124) Negative results do not preclude SARS-CoV-2 infection [...] of the Act.Fact Sheet for Healthcare Pro viders:https://www.[employer]/Documents/Xpert%20Xpress%20SARS%20CoV-2/Fact%20Sh eets/3023802%53NMFA-QLA-3%20HEALTHCARE%20PROVIDERS%20FACT%20SHEET.pdfFact Sheet for Healthcare Patients:https://www.[employer]/Documents/Xpert%20Xpress%20SARS%20CoV-2/Fact%20Sheets/3023801%20SARS-COV -2%20PATIENT%20FACT%20SHEET.pdfPerforming Laboratory:[address] [id number] [id number] 09:01:00 Test Item Value Reference Range Interpretation Comments HEMOGLOBIN A1C (BEAKER) (test code = 6.7 % 4.3-6.1 H 368) PLATELET AGGREGATION: FUNCTION [id number] 07:55:00 Test Item Value Reference Range Interpretation Comments [id number] Phil Mcguire M.D. (BEAKER) (test code = (electonic signature) 8099) PLATELET COUNT AGG 160 K/CU MM 150-450 [...] may be falsely low with platelet counts<75,000/cu mm.Automotive Service Management Teacher ID- [id number] AGGREGATION: FUNCTION SCREEN 2019-09-13 07:53:00 Test Item Value Reference Range Interpretation Comments [id number] Phil Mcguire M.D. (BEAKER) (test code = (electonic signature) 4202) PLATELET COUNT AGG 178 K/CU MM 150-450 (BEAKER) (test code = 2656) ADP (BEAKER) (test code 55 % 62-100 L = 4654) PLATELET RICH 192 k/cu mm 200-300 L PLASMA(BEAKER) (test code = 2134) PLATELET FUNCTION SCREEN Decreased aggregation INTERPRETATION (BEAKER) with ADP which (test code = 6545) indicates platelet dysfunction that may be due to medication effect, uremia, or other platelet function disorders. Clinical correlation is required. Platelet Function Screen results may be falsely low with platelet counts<75,000/cu mm.Autom[employer] Service Management Teacher ID- [id number] 07:33:00 Test Item Value Reference Range Interpretation Comments PARTIAL THROMBOPLASTIN TIME 85.7 seconds 22.5-36.0 H (BEAKER) (test code = 760) [id number] 06:04:00 Test Item Value Reference Range Interpretation Comments MAGNESIUM (BEAKER) (test code = 2.1 mg/dL 1.6-2.6 627) Automotive Service Management Teacher ID - DANO MBASIC METABOLIC [id number] 06:04:00 Test Item Value Reference Range Interpretation [...] S NOT APPLICABLE FOR DIALYSIS PATIEN TS. Autom[employer] Service Management Teacher ID - DANO MLIPID [id number] 06:04:00 Test Item Value Reference Range Interpretation [...] Borderline 130-159 High 160-189 Very High >=190 Automotive Service Management Teacher ID - DANO MPROTHROMBIN TIME/[id number] 05:20:00 Test Item Value Reference Range Interpretation [...] mechanical heart valves.CBC W/PLT COUNT & AUTO [id number] 05:01:00 Test Item Value Reference Range Interpretation [...] = 2801) RAD, CHEST, 1 VIEW, NON [id number] 01:56:00Reason for exam:->pre op screenShould this be [...] Chema Ibrahim MDReport Verified Date/Time: 09/13/2019 01:56:23 [id number] 18:35:00 Test Item Value Reference Range Interpretation Comments PARTIAL THROMBOPLASTIN TIME 81.1 seconds 22.5-36.0 H (BEAKER) (test code = 760) TROPONIN [id number] 11:43:00 Test Item Value Reference Range Interpretation [...] failure, acidosis, acute neurological disease, and persistent tachyarrhythmia.Automotive Service Management Teacher ID - CHAO [id number] 11:25:00 Test Item Value Reference Range Interpretation Comments PARTIAL THROMBOPLASTIN TIME 75.5 seconds 22.5-36.0 H (BEAKER) (test code = 760) TROPONIN [id number] 04:03:00 Test Item Value Reference Range Interpretation [...] failure, acidosis, acute neurological disease, and persistent tachyarrhythmia.Automotive Service Management Teacher ID - LAURA [id number] 03:47:00 Test Item Value Reference Range Interpretation Comments PARTIAL THROMBOPLASTIN TIME 26.9 seconds 22.5-36.0 (BEAKER) (test code = 760) 6 hours after starting heparin infusion and as [facility]2019-09-12 03:31:00 Test Item Value [...]
[2023-02-02 18:02] LABS: Absolute Lymphocytes (CBC) 1.3 K/uL (0.7-4.9); Lymphocytes % 15.8 % (15.3-44.8); MCV 93.3 fL (80-100); MPV 7.7 fL (7.6-11.3); Platelets 219 thou/uL (152-406); RBC Red Blood Cell Count 3.85 M/uL (3.86-4.86)
[2023-02-02 18:05] LABS: Protime INR 1.04
--- NOTE | 2023-02-02 18:18 | RAD REPORT ---
EXAM DESCRIPTION: RAD - Chest Single View - 02/02/2023 6:12 pm CLINICAL HISTORY: CHEST PAIN COMPARISON: Chest Pa And Lat (2 Views) dated 03/12/2022; Chest Single View dated 02/19/2021; Chest Pa And Lat (2 Views) dated 02/10/2021; Chest Single View dated 07/24/2020 FINDINGS: Lines: None. Lungs: No evidence of edema or pneumonia. Calcified lung nodules Pleural: No significant pleural effusions or pneumothorax. Cardiac: Mild cardiomegaly. Loop recorder. Mediastinum: Within normal limits. Bones: No acute fractures. Sternotomy. Other: None IMPRESSION: No acute cardiopulmonary disease.
[2023-02-02 18:26] LABS: Albumin 3.7 g/dL (3.4-5.0); Bilirubin Direct 0.1 mg/dL (0-0.2); Bilirubin Indirect, Calculated 0.5 mg/dL (0.2-0.8); Bilirubin Total 0.6 mg/dL (0.2-1.0); Magnesium 2.6 mg/dL (1.6-2.4); Potassium 4.1 mEq/L (3.5-5.1); Protein, Total 7.7 g/dL (6.4-8.2); Troponin High Sensitivity 38.2 pg/mL (<58.9)
[2023-02-02] MEDS ORDERED: ASPIRIN 81 MG CHEWABLE TABLET ONE (18:33)
[2023-02-02] MEDS ORDERED: HYDRALAZINE HCL 20 MG/ML VIAL ONE (20:09)
--- NOTE | 2023-02-02 20:14 | RAD REPORT ---
EXAM DESCRIPTION: CTAngio Aorta For Dissection - 02/02/2023 7:43 pm CLINICAL HISTORY: chest pain;Dissection COMPARISON: Angio Aorta For Dissection dated 07/26/2020 TECHNIQUE: CTA of the chest, abdomen, and pelvis was performed. MIPs of the aorta were created. All CT scans are performed using dose optimization technique as appropriate and may include automated exposure control or mA/KV adjustment according to patient size. FINDINGS: Thorax: Chest Wall: Subcentimeter thyroid nodules are present bilaterally. None meet imaging criteria requiri ng additional imaging evaluation. Lungs: Cylindrical Bronchiectasis and mucoid impacted left lower lobe and lingular airways Pleura: No effusions or pneumothorax. Tiffanie/Mediastinum: No lymphadenopathy. Aorta/Pulmonary Arteries: Unremarkable Heart: Normal size. Coronary artery calcifications. Abdomen/Pelvis: Liver: No acute abnormality or suspicious lesions. Biliary: No biliary ductal dilatation. Cholecystectomy. Stomach: No significant focal abnormality. Duodenum: No significant focal abnormality. Pancreas: No significant abnormality. Spleen: No significant abnormality. Adrenal: No suspicious lesions. Kidney/ureter: Solid right renal mass which extends into renal hilum with tumor extension to the righ t renal vein. The mass measures approximately 3.5 cm. This excludes the portion in the renal vein. Retroperitoneum: No retroperitoneal adenopathy. Vascular: No aneurysm. Bowel: No significant focal abnormality. Peritoneum: No ascites or free air. Bladder: Distended bladder. Reproductive: Hysterectomy. Bones: No acute fracture. Bridging osteophytes are present spine. No acute fractures. 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 Other: n/a IMPRESSION: No aortic aneurysm or dissection. No pulmonary embolus. Right renal mass concerning for renal cell carcinoma with invasion of the right renal vein. Recommend urologic referral.
--- NOTE | 2023-02-02 21:17 | ER ---
Nurse's Notes [facility] Name: Yeison Ellis Age: 82 yrs Sex: Female : 1940 Arrival Date: 02/02/2023 Time: 17:15 Bed 8 Private MD: Diagnosis: Chest pain, unspecified Presentation: 02/02 17:19 Chief complaint: EMS states: "From home, called EMS for high blood pressure readings rs5 and chest discomfort". Coronavirus screen: At this time, the client does not indicate any symptoms associated with coronavirus-19. Ebola Screen: No symptoms or risks identified at this time. Initial Sepsis Screen: Does the patient meet any 2 criteria? No. Patient's initial sepsis screen is negative. Does the patient have a suspected source of infection? No. Patient's initial sepsis screen is negative. Risk Assessment: Do you want to hurt yourself or someone else? Patient reports no desire to harm self or others. Onset of symptoms was February 02, 2023. 17:19 Method Of Arrival: EMS: [facility] rs5 17:19 Acuity: ALEXIS 3 rs5 Historical: - Allergies: 17:22 Darvocet-N 100; rs5 17:22 EGG/POULTRY; rs5 17:22 Iodine; rs5 17:22 Rfdsbst-Twy-Tit Reductase Inhibitor; rs5 - PMHx: 17:22 Arthritis; Back pain; Chronic pain; Hypertension; Kidney stones; Myocardial infarction; rs5 neuropathy; Rheumatoid Arthritis; - PSHx: 17:22 Stented artery; rs5 - Immunization history:: Adult Immunizations unknown. - Social history:: Smoking status: Patient denies any tobacco usage or history of. Screenin:22 [facility] ED Fall Risk Assessment (Adult) History of falling in the last 3 months, rs5 including since admission No falls in past 3 months (0 pts) Confusion or Disorientation No (0 pts) Intoxicated or Sedated No (0 pts) Impaired Gait No (0 pts) Mobility Assist Device Used No (0 pt) Altered Elimination No (0 pt) Score/Fall Risk Level 0 - 2 = Low Risk. [facility] ED Fall Risk Assessment (Adult) Score/Fall Risk Level 0 - 2 = Low Risk Oriented to surroundings, Maintained a safe environment. Abuse screen: Denies threats or abuse. Nutritional screening: No deficits noted. Tuberculosis screening: No symptoms or risk factors identified. Assessment: 17:22 General: Appears in no apparent distress. comfortable, Behavior is calm, cooperative. rs5 17:22 Pain: Denies pain. Neuro: Level of Consciousness is awake, alert, obeys commands, rs5 Oriented to person, place, time, situation. Cardiovascular: Denies chest pain, Heart tones S1 S2 present Rhythm is regular. Respiratory: Airway is patent Respiratory effort is even, unlabored, Respiratory pattern is regular, symmetrical, Breath sounds are clear bilaterally. GI: Abdomen is round non-distended, Bowel sounds present X 4 quads. Abd is soft and non tender X 4 quads. : No signs and/or symptoms were reported regarding the genitourinary system. EENT: No signs and/or symptoms were reported regarding the EENT system. Derm: Skin is intact, Skin is pink, warm \\T\\ dry. Musculoskeletal: Range of motion: intact in all extremities. 19:14 General: Appears in no apparent distress. comfortable, Behavior is calm, cooperative, km8 appropriate for age. Pain: Denies pain. Neuro: Level of Consciousness is awake, alert, obeys commands, Oriented to person, place, time, situation. Cardiovascular: Denies chest pain, Rhythm is regular. Respiratory: Airway is patent Respiratory effort is even, unlabored, Respiratory pattern is regular, symmetrical. GI: No signs and/or symptoms were reported involving the gastrointestinal system. : No signs and/or symptoms were reported regarding the genitourinary system. EENT: No signs and/or symptoms were reported regarding the EENT system. Derm: Skin is intact, Skin is dry, Skin is normal, Skin temperature is warm Bruising that is dark purple, bilateral arms. Musculoskeletal: No signs and/or symptoms reported regarding the musculoskeletal system. Range of motion: intact in all extremities. 20:15 Reassessment: Patient appears in no apparent distress at this time. No changes from km8 previously documented assessment. Patient and/or family updated on plan of care and expected duration. Pain level reassessed. Patient is alert, oriented x 3, equal unlabored respirations, skin warm/dry/pink. Patient denies pain at this time. 21:37 Reassessment: Patient appears in no apparent distress at this time. No changes from km8 previously documented assessment. Patient and/or family updated on plan of care and expected duration. Pain level reassessed. Patient is alert, oriented x 3, equal unlabored respirations, skin warm/dry/pink. 22:08 Reassessment: Patient appears in no apparent distress at this time. No changes from km8 previously documented assessment. Patient and/or family updated on plan of care and expected duration. Pain level reassessed. Patient is alert, oriented x 3, equal unlabored respirations, skin warm/dry/pink. Vital Signs: 17:19 BP 189 / 86; Pulse 81; Resp 17; Pulse Ox 99% on R/A; rs5 17:40 BP 183 / 82; Pulse 69; Resp 17; Pulse Ox 99% on R/A; rs5 18:30 BP 178 / 66; Pulse 74; Resp 18; Pulse Ox 99% on R/A; rs5 19:16 BP 197 / 83; Pulse 64; Resp 16; Pulse Ox 99% on R/A; km8 20:06 BP 199 / 68; Pulse 67; Resp 18 S; Pulse Ox 99% on R/A; km8 20:30 BP 183 / 64; Pulse 75; Resp 20; Pulse Ox 100% on R/A; km8 21:00 BP 181 / 85; Pulse 67; Resp 22; Pulse Ox 100% on R/A; km8 22:00 BP 185 / 58; Pulse 68; Resp 18 S; Pulse Ox 99% on R/A; km8 22:26 Weight 54.43 kg (R); km8 ED Course: 17:19 Patient arrived in ED. aa5 17:19 Odette Lemus PA-C is PHCP. sb4 17:19 Abdon Oneill MD is Attending Physician. sb4 17:19 Roe Vergara, PIEDAD is Primary Nurse. rs5 17:22 Triage completed. rs5 17:22 Maintain EMS IV. Dressing intact. Good blood return noted. Site clean \\T\\ dry. Gauge \\T\\ rs 5 site: 20g RAC. 17:40 Inserted saline lock: 20 gauge in left antecubital area, using aseptic technique. rs5 18:14 XRAY Chest (1 view) In Process Unspecified. EDMS 18:55 Primary Nurse role handed off by Roe Vergara, PIEDAD km8 18:55 Noelle Mendoza RN is Primary Nurse. km8 19:13 Inserted saline lock: 20 gauge in left upper arm, using aseptic technique. km8 19:13 Inserted saline lock: 20 gauge in right antecubital area, using aseptic technique. km8 19:14 IV discontinued, intact, bleeding controlled, No redness/swelling at site. Pressure km8 dressing applied, left AC 20g and right AC from EMS. 19:14 Arm band placed on right wrist. km8 19:14 Patient has correct armband on for positive identification. Fall risk band placed. km8 Placed in gown. Bed in low position. Call light in reach. Side rails up X2. Client placed on continuous cardiac and pulse oximetry monitoring. NIBP monitoring applied. night monitor on. 19:45 CT Aorta for Dissection In Process Unspecified. EDMS 20:21 Attending Physician role handed off by Abdon Oneill MD rt 20:21 Murphy Zuniga MD is Attending Physician. rt 20:40 Initiated transfer with Aleida at [facility]. rv1 21:[address] [facility] Rm [address] Stephenson. rv1 22:01 Called Noelle at EMS for transfer truck, given 10-15 min ETA. rv1 22:06 No provider procedures requiring assistance completed. Patient transferred, IV remains km8 in place. 22:06 Provided Education on: transfer process. km8 22:07 Report given to PIEDAD Lunsford from [facility]. km8 Administered Medications: 17:40 Drug: Aspirin PO Chewable Tablet 324 mg PO once; 81 mg tablets x 4 Route: PO; rs5 19:16 Follow up: Response: No adverse reaction km8 20:22 Drug: hydrALAZINE IVP 10 mg IVP once Route: IVP; Site: right antecubital; km8 21:37 Follow up: Response: No adverse reaction; Blood pressure is lowered km8 21:15 CANCELLED (Duplicate Order): Heparin (ID Drip) - ([id number] units, [id number] ml) 12 rt units/kg/hr IV at calculated rate Per protocol; Max initial rate 1000 units/hr 21:15 CANCELLED (Duplicate Order): Heparin (ID-Bolus No thrombolytic) - [id number] units/kg rt IVP once; Max 5000 units 21:15 CANCELLED (Duplicate Order): nitroglycerin5 mcg/min IV at calculated rate See rt Administration Instructions; Standard concentration 50 mg / 250 mL; Recommended max rate 400 mcg/min; Titrate 5 mcg/min as often as every 5 minutes to achieve goal (see titration policy); Goal parameter SBP less than 160 bpm or resolution of chest pain; Use low-sorbing IV tubing. 22:27 Drug: HYDROcodone-acetaminophen PO 10 mg-325 mg 1 tabs PO once Route: PO; km8 22:27 Follow up: Response: No adverse reaction km8 Medication: 22:06 VIS not applicable for this client. km8 Outcome: 21:17 ER care complete, transfer ordered by . rt 22:27 Transferred by ground EMS to [facility], Transfer form km8 completed. 22: Condition: stable 22: Discharge instructions given to patient, family, Instructed on the need for transfer, Demonstrated understanding of instructions, :37 Patient left the ED. km8 Signatures: Dispatcher [employer] EDMS Nichole Rios RN RN aa5 Odette Lemus, PAVonC PA-C sb4 Murphy Zuniga MD MD rt Mira Rooney rv1 Roe Vergara RN RN rs5 Noelle Mendoza RN RN km8 Corrections: (The following items were deleted from the chart) 22: 22:05 Transferred by ground EMS to [facility], Transfer form km8 completed. km8 : 22:05 Condition: good km8 km8 : 22:05 Discharge instructions given to patient, family, Instructed on the need for km8 transfer, Demonstrated understanding of instructions, km8
--- NOTE | 2023-02-02 21:17 | EDPHYS ---
Physician Documentation [facility] Name: Yeison Ellis Age: 82 yrs Sex: Female : 1940 Arrival Date: 02/02/2023 Time: 17:15 Bed 8 Private MD: ED Physician Murphy Zuniga HPI: 02/02 18:01 This 82 yrs old Female presents to ER via EMS with complaints of chest pain. sb4 18:01 The patient or guardian reports chest pain that is located primarily in the substernal sb4 area. Onset: just prior to arrival. The pain radiates to left neck, left jaw. Associated signs and symptoms: Pertinent negatives: diaphoresis, dizziness, lightheadedness, palpitations, shortness of breath. The chest pain is described as burning. Modifying factors: The symptoms are alleviated by NTG, X2. EMS care prior to arrival includes: nitroglycerin, x 2 with resolution of the chest pain. The patient has experienced a previous episode. 19:33 patient states that she had 2 steroid injections in her knee yesterday and noticed sb4 today that her BP was elevated. EMS reported a BP of 210/90 when they initially arrived. she was also reporting some chest discomfort that she states feels similar to her prior PA. she had a CABG in 2019. states the pain felt like a burning sensation and radiated up to her left neck/jaw. EMS gave nitro x 2 which brought the BP down slightly and relieved her chest pain. she has no complaints upon arrival. Historical: - Allergies: 17:22 Darvocet-N 100; rs5 17:22 EGG/POULTRY; rs5 17:22 Iodine; rs5 17:22 Blbkzbm-Eah-Ijp Reductase Inhibitor; rs5 - PMHx: 17:22 Arthritis; Back pain; Chronic pain; Hypertension; Kidney stones; Myocardial infarction; rs5 neuropathy; Rheumatoid Arthritis; - PSHx: 17:22 Stented artery; rs5 - Immunization history:: Adult Immunizations unknown. - Social history:: Smoking status: Patient denies any tobacco usage or history of. ROS: 18:01 Constitutional: Negative for fever, chills, and weight loss, sb4 18:01 Cardiovascular: Positive for chest pain, 18:01 All other systems are negative, Exam: 18:01 Constitutional: This is a well developed, well nourished patient who is awake, alert, sb4 and in no acute distress. Head/Face: Normocephalic, atraumatic. Eyes: Extra-ocular motions intact. Periorbital areas with no swelling, redness, or edema. ENT: Mucous membranes moist. Cardiovascular: Regular rate and rhythm with a normal S1 and S2. Respiratory: Lungs have equal breath sounds bilaterally, clear to auscultation and percussion. No rales, rhonchi or wheezes noted. No increased work of breathing, no retractions or nasal flaring. Abdomen/GI: Soft, non-tender, no distension. Skin: Warm, dry with normal turgor. Normal color with no rashes, no lesions, and no evidence of cellulitis. MS/ Extremity: Pulses equal, no cyanosis. Neurovascular intact. Full, normal range of motion. Neuro: Awake and alert, GCS 15, oriented to person, place, time, and situation. Motor strength 5/5 in all extremities. Sensory grossly intact. Vital Signs: 17:19 BP 189 / 86; Pulse 81; Resp 17; Pulse Ox 99% on R/A; rs5 17:40 BP 183 / 82; Pulse 69; Resp 17; Pulse Ox 99% on R/A; rs5 18:30 BP 178 / 66; Pulse 74; Resp 18; Pulse Ox 99% on R/A; rs5 19:16 BP 197 / 83; Pulse 64; Resp 16; Pulse Ox 99% on R/A; km8 20:06 BP 199 / 68; Pulse 67; Resp 18 S; Pulse Ox 99% on R/A; km8 20:30 BP 183 / 64; Pulse 75; Resp 20; Pulse Ox 100% on R/A; km8 21:00 BP 181 / 85; Pulse 67; Resp 22; Pulse Ox 100% on R/A; km8 22:00 BP 185 / 58; Pulse 68; Resp 18 S; Pulse Ox 99% on R/A; km8 22:26 Weight 54.43 kg (R); km8 MDM: 17:19 Patient medically screened. sb4 18:01 Differential diagnosis: abnormal EKG, acute myocardial infarction, coronary artery sb4 disease pleurisy, stable angina, unstable angina. Scoring Tools HEART Score: History: ECG: Age: Risk Factors: > or = 3 Risk factors for atherosclerotic disease (2). 20:26 Scoring Tools HEART Score: Troponin: Total Score = 9. Transition of care: After a sb4 detail discussion of the patient's case, care is transferred to Murphy Zuniga MD. 02/03 08:40 Data reviewed: vital signs, nurses notes, EMS record, lab test result(s), EKG, sb4 radiologic studies, I have discussed the patient's presentation/case with the attending Emergency Department Physician;. Consideration of Admission/Observation Patient was admitted/placed on observation. Counseling: I had a detailed discussion with the patient and/or guardian regarding the historical points, exam findings, and any diagnostic results supporting the discharge/admit diagnosis, the presence of at least one elevated blood pressure reading (>120/80) during this emergency department visit, lab results, radiology results, the need to transfer to another facility, no beds available here, her manager security and safety is with [facility]. 02/02 17:23 Order name: Basic Metabolic Panel; Complete Time: 18:27 sb4 02/02 17:23 Order name: CBC with Diff; Complete Time: 18:12 sb4 02/02 17:23 Order name: LFT's; Complete Time: 18:27 sb4 02/02 17:23 Order name: Magnesium; Complete Time: 18:27 sb4 02/02 17:23 Order name: NT PRO-BNP; Complete Time: 18:27 sb4 02/02 17:23 Order name: PT-INR; Complete Time: 18:06 sb4 02/02 17:23 Order name: Troponin HS; Complete Time: 18:27 sb4 02/02 20:08 Order name: Troponin High Sensitivity; Complete Time: 21:15 sb4 02/02 17:23 Order name: XRAY Chest (1 view); Complete Time: 18:19 sb4 02/02 18:35 Order name: CT Aorta for Dissection; Complete Time: 20:17 sb4 02/02 17:23 Order name: EKG; Complete Time: 17:24 sb4 02/02 17:23 Order name: Cardiac monitoring; Complete Time: 17:56 sb4 02/02 17:23 Order name: EKG - Nurse/Tech; Complete Time: 17:56 sb4 02/02 17:23 Order name: IV Saline Lock; Complete Time: 17:56 sb4 02/02 17:23 Order name: Labs collected and sent; Complete Time: 17:56 sb4 02/02 17:23 Order name: O2 Per Protocol; Complete Time: 17:56 sb4 02/02 17:23 Order name: O2 Sat Monitoring; Complete Time: 17:56 sb4 EC/28 18:01 Rate is 70 beats/min. Rhythm is regular, Sinus Rhythm. WA interval is normal at 250 sb4 msec. QRS interval is normal at 98 msec. QT interval is normal at [address] changes noted. Clinical impression: Abnormal EKG without significant change. Interpreted by me. Reviewed by me. Administered Medications: 17:40 Drug: Aspirin PO Chewable Tablet 324 mg PO once; 81 mg tablets x 4 Route: PO; rs5 19:16 Follow up: Response: No adverse reaction km8 20:22 Drug: hydrALAZINE IVP 10 mg IVP once Route: IVP; Site: right antecubital; km8 21:37 Follow up: Response: No adverse reaction; Blood pressure is lowered km8 21:15 CANCELLED (Duplicate Order): Heparin (PA Drip) - ([id number] units, s7a486 ml) 12 rt units/kg/hr IV at calculated rate Per protocol; Max initial rate 1000 units/hr 21:15 CANCELLED (Duplicate Order): Heparin (PA-Bolus No thrombolytic) - [id number] units/kg rt IVP once; Max 5000 units 21:15 CANCELLED (Duplicate Order): nitroglycerin5 mcg/min IV at calculated rate See rt Administration Instructions; Standard concentration 50 mg / 250 mL; Recommended max rate 400 mcg/min; Titrate 5 mcg/min as often as every 5 minutes to achieve goal (see titration policy); Goal parameter SBP less than 160 bpm or resolution of chest pain; Use low-sorbing IV tubing. 22:27 Drug: HYDROcodone-acetaminophen PO 10 mg-325 mg 1 tabs PO once Route: PO; km8 22:27 Follow up: Response: No adverse reaction km8 Disposition: 21:35 Co-signature as Attending Physician, Murphy Zuniga MD I agree with the assessment and rt plan of care. I reviewed the patient's care provided by the Advanced Practice Provider and agree with the diagnosis and treatment plan. I discussed With accepting manager security and safety at [facility].. 02/03 08:41 Chart complete. sb4 Disposition Summary: 02/02/23 21:17 Transfer Ordered Notes: Transfer Location: [facility] rt Reason: Private Physician at Transferring Hospital rt Condition: Stable rt Problem: new rt Symptoms: have improved rt Accepting Physician: (02/02/23 22:37) km8 Diagnosis - Chest pain, unspecified rt Forms: - Medication Reconciliation Form rt - SBAR form rt Signatures: Dispatcher [employer] Odette Cade PA-C PA-C sb4 Murphy Zuniga MD MD rt Mira Rooney rv1 Roe Vergara, RN RN rs5 Noelle Mendoza, PIEDAD RN km8 Corrections: (The following items were deleted from the chart) 02/02 21:15 21:15 Heparin (PA Drip) 12 units/kg/hr - ([place] [address] units, D5W IV 500 ml) IV at rt calculated rate Per protocol; Max initial rate 1000 units/hr ordered. rt 21:15 21:15 Heparin (PA-Bolus No thrombolytic) - HEParin IVP 60 units/kg IVP once; Max 5000 rt units ordered. rt 21:15 21:15 Nitroglycerin IV 5 mcg/min IV at calculated rate See Administration Instructions; rt Standard concentration 50 mg / 250 mL; Recommended max rate 400 mcg/min; Titrate 5 mcg/min as often as every 5 minutes to achieve goal (see titration policy); Goal parameter SBP less than 160 bpm or resolution of chest pain; Use low-sorbing IV tubing. ordered. rt 21:48 21:17 rt rv1 22:37 21:48 rv1 km8
[2023-02-02] MEDS ORDERED: HYDROCODONE/APAP 10/325 TAB ONE (22:38)
[2023-02-02 23:24] VITALS: BP 185/58; O2SAT 99
--- NOTE | 2023-02-05 07:57 | EKG ---
Test Date: 2023-02-02 Test Time: 17:38:07 Internet Marketing Specialist: JOSE LUIS MEASUREMENT RESULTS: Intervals: Rate: 70 AR: 250 QRSD: 98 QT: 440 QTc: 475 [place]: P: 63 AR: 250 QRS: 63 T: 106 INTERPRETIVE STATEMENTS: Sinus rhythm with sinus arrhythmia with 1st degree AV block Incomplete right bundle branch block ST & T wave abnormality, consider lateral ischemia Abnormal ECG Compared to ECG 02/19/2021 19:43:05 Incomplete right bundle-branch block now present ST (T wave) deviation now present Possible ischemia now present Atrial premature complex(es) no longer present Myocardial infarct finding no longer present Electronically Signed On 02-05-23 07:52:34 CDT by Tapan Pozo
== END 2023-02-02 22:37 | disposition short-term general hospital (02) ==
LOC: ER 17:15
DX: R07.9 Chest pain, unspecified (principal); I10 Essential (primary) hypertension; I25.2 Old myocardial infarction; Z95.1 Presence of aortocoronary bypass graft; Z88.5 Allergy status to narcotic agent; Z88.8 Allergy status to other drugs, medicaments and biological substances; Z91.012 Allergy to eggs; Z91.048 Other nonmedicinal substance allergy status
CPT/HCPCS: 93005; 85025; 80048; 36415; 83735; 85610; 80076; 84484 ×2; 83880; 71275; 74175; 71045; 96374; 99285; Q9967; J0360

== ENCOUNTER 2023-03-15 17:18 | Emergency (ER) | payer OTHER ==
[2023-03-15 18:20] LABS: Absolute Lymphocytes (CBC) 1.3 K/uL (0.7-4.9); Hematocrit 33.7 % (36.0-45.0); Lymphocytes % 17.8 % (15.3-44.8); MCV 94.8 fL (80-100); MPV 7.8 fL (7.6-11.3); Platelets 170 thou/uL (152-406); RBC Red Blood Cell Count 3.55 M/uL (3.86-4.86)
[2023-03-15 18:36] LABS: SARS-CoV-2 Antigen Rapid Res Negative (Negative)
[2023-03-15 18:48] LABS: Albumin 3.6 g/dL (3.4-5.0); Bilirubin Total 0.4 mg/dL (0.2-1.0); Potassium 4.3 mEq/L (3.5-5.1); Protein, Total 7.4 g/dL (6.4-8.2)
--- NOTE | 2023-03-15 18:58 | RAD REPORT ---
EXAM DESCRIPTION: RAD - Chest Single View - 03/15/2023 6:18 pm CLINICAL HISTORY: chest pain, cough Chest pain. COMPARISON: Chest Single View dated 02/02/2023; Chest Pa And Lat (2 Views) dated 03/12/2022; Chest Si ngle View dated 02/19/2021; Chest Pa And Lat (2 Views) dated 02/10/2021 FINDINGS: Portable technique limits examination quality. The lungs are emphysematous but grossly clear. The heart is moderately enlarged. No displaced fractur es.Sternotomy wires. Aortic atherosclerosis. IMPRESSION: No acute intrathoracic process suspected.
--- NOTE | 2023-03-15 19:47 | EDPHYS ---
Physician Documentation [facility] Name: Yeison Ellis Age: 82 yrs Sex: Female : 1940 Arrival Date: 03/15/2023 Time: 17:18 Bed 8 Private MD: ED Physician Murphy Zuniga HPI: 03/15 18:09 This 82 yrs old Female presents to ER via EMS with complaints of Cough. rt 18:09 Patient presents to the ED with several days of cough. She states that she started rt having a small little blood-tinged in the mucus. She denies vomiting, does report nausea. She reports pain to the lower close with coughing, no chest pain currently. Denies fever, chills, difficulty breathing. Denies other acute complaints, symptoms are mild in severity, no other aggravating or elevating factors. Historical: - Allergies: 17:23 Darvocet-N 100; iw 17:23 EGG/POULTRY; iw 17:23 Iodine; iw 17:23 Rkyzhgk-Nld-Uvq Reductase Inhibitor; iw - PMHx: 17:23 Arthritis; Chronic pain; Back pain; Hypertension; Kidney stones; Myocardial infarction; iw neuropathy; Rheumatoid Arthritis; - PSHx: 17:23 Stented artery; iw ROS: 18:09 Constitutional: Negative for fever, chills, and weight loss, Cardiovascular: Negative rt for chest pain, palpitations, and edema, MS/Extremity: Negative for injury and deformity, Skin: Negative for injury, rash, and discoloration, Neuro: Negative for headache, weakness, numbness, tingling, and seizure, Psych: Negative for depression, anxiety, suicide ideation, homicidal ideation, and hallucinations, 18:09 Respiratory: Positive for cough, hemoptysis, Negative for shortness of breath, 18:09 Abdomen/GI: Positive for nausea, Negative for abdominal pain, vomiting, Exam: 18:09 Constitutional: This is a well developed, well nourished patient who is awake, alert, rt and in no acute distress. Head/Face: Normocephalic, atraumatic. Chest/axilla: Normal chest wall appearance and motion. Nontender with no deformity. No lesions are appreciated. Cardiovascular: Regular rate and rhythm with a normal S1 and S2. No gallops, murmurs, or rubs. Normal PMI, no JVD. No pulse deficits. Abdomen/GI: Soft, non-tender, with normal bowel sounds. No distension or tympany. No guarding or rebound. No evidence of tenderness throughout. Skin: Warm, dry with normal turgor. Normal color with no rashes, no lesions, and no evidence of cellulitis. MS/ Extremity: Pulses equal, no cyanosis. Neurovascular intact. Full, normal range of motion. Neuro: Awake and alert, GCS 15, oriented to person, place, time, and situation. Cranial nerves II-XII grossly intact. Motor strength 5/5 in all extremities. Sensory grossly intact. Cerebellar exam normal. Normal gait. Psych: Awake, alert, with orientation to person, place and time. Behavior, mood, and affect are within normal limits. 18:09 Respiratory: Coarse breath sounds on the right lung jensen, no respiratory distress, 19:53 ECG was reviewed by the Attending Physician. rt Vital Signs: 17:24 BP 161 / 59; Pulse 68; Resp 18; Temp 99.4; Pulse Ox 100% on R/A; iw 20:03 BP 125 / 50; Pulse 61; Resp 16; Temp 98; Pulse Ox 99% ; rv Florien Coma Score: 20:03 Eye Response: spontaneous(4). Motor Response: obeys commands(6). Verbal Response: rv oriented(5). Total: 15. MDM: 17:31 Patient medically screened. rt 19:53 Differential Diagnosis: Other PE, pneumonia, pneumothorax, influenza, bronchitis. Data rt reviewed: vital signs, nurses notes, lab test result(s), EKG, radiologic studies. Consideration of Admission/Observation Escalation of care including admission/observation considered. Hemoptysis resolved in the emergency department, chest x-ray is clear showing no evidence of pneumonia. Patient is flu positive, will treat with Tamiflu, azithromycin. Patient is currently taking Eliquis, believe that pulmonary embolism is very unlikely, will forego PE scans. There is no hypoxia, is stable for outpatient care, strict return precautions discussed.. I considered the following discharge prescriptions or medication management in the emergency department Medications were administered in the Emergency Department. See MAR. Independent interpretation of the following test(s) in the Emergency Department X-Ray: My interpretation is No pneumonia seen on interpretation of x-ray images. Care significantly affected by the following chronic conditions: RCC. Counseling: I had a detailed discussion with the patient and/or guardian regarding the historical points, exam findings, and any diagnostic results supporting the discharge/admit diagnosis, lab results, radiology results, the need for further work-up and treatment in the hospital. 03/15 17:37 Order name: SARS RAPID rt 03/15 17:59 Order name: Influenza Screen (A ; Complete Time: 19:01 EDMS 03/15 17:59 Order name: CBC with Automated Diff; Complete Time: 19:01 EDMS 03/15 17:59 Order name: Comprehensive Metabolic Panel; Complete Time: 19:01 EDMS 03/15 17:59 Order name: NT PRO-BNP; Complete Time: 19:01 EDMS 03/15 17:59 Order name: SARS-COV-2 Antigen Rapid; Complete Time: 19:01 EDMS 03/15 17:59 Order name: Troponin High Sensitivity; Complete Time: 19:01 EDMS 03/15 17:59 Order name: Chest Single View; Complete Time: 19:01 EDMS 03/15 17:37 Order name: EKG; Complete Time: 18:32 rt 03/15 17:37 Order name: EKG - Nurse/Tech; Complete Time: 19:09 rt EC:53 Rate is 60 beats/min. Rhythm is regular, Normal Sinus Rhythm with No ectopy. QRS [place] rt is Normal. OK interval is normal. QRS interval is normal. QT interval is normal. No Q waves. T waves are Normal. No ST changes noted. Interpreted by me. Administered Medications: 20:03 Drug: AZITHromycin PO 500 mg PO once Route: PO; rv 20:03 Follow up: Response: Medication administered at discharge. rv 20:03 Drug: Oseltamivir PO 75 mg PO once Route: PO; rv 20:03 Follow up: Response: Medication administered at discharge. rv Disposition Summary: 03/15/23 19:46 Discharge Ordered Notes: Location: Home rt Problem: new rt Symptoms: have improved rt Condition: Stable rt Diagnosis - Hemoptysis rt - Influenza rt Followup: rt - With: Private Physician - When: 2 - 3 days - Reason: Discharge Instructions: - Discharge Summary Sheet rt - Hemoptysis rt - Influenza, Adult rt Forms: - Medication Reconciliation Form rt - Thank You Letter rt - Antibiotic Education rt - Prescription Opioid Use rt - Patient Portal Instructions rt - Leadership Thank You Letter rt Prescriptions: - azithromycin 250 mg Oral tablet - take 1 tablet ORAL route daily for 4 days start on day 2 of therapy; 4 tablet; rt Refills: 0, Product Selection Permitted - Tamiflu 75 mg Oral capsule - take 1 tablet ORAL route every 12 hours for 5 days; 10 tablet; Refills: 0, rt Product Selection Permitted Signatures: Dispatcher [employer] Paulette Mcmahon RN RN iw Vicente, Ronaldo, RN RN rv [place], Ryan, MD MD rt Corrections: (The following items were deleted from the chart) 18:38 18:32 Chest Single View+RAD.RAD.[email or web address] ordered. EDMS EDMS
--- NOTE | 2023-03-15 19:47 | ER ---
Nurse's Notes [facility] Name: Yeison Ellis Age: 82 yrs Sex: Female : 1940 Arrival Date: 03/15/2023 Time: 17:18 Bed 8 Private MD: Diagnosis: Hemoptysis;Influenza Presentation: 03/15 17:21 Chief complaint: EMS states: pt has been coughing up blood in her mucous, appears blood iw tinged, she is also having chest pain with her cough , also has neuropathy in both legs and has been nauseated since yesterday , has of kidney cancer and is supposed to have her right kidney removed in April , is also supposed to have a watchman procedure in April. Coronavirus screen: Client presents with at least one sign or symptom that may indicate coronavirus-19. Ebola Screen: Patient negative for fever greater than or equal to 101.5 degrees Fahrenheit, and additional compatible Ebola Virus Disease symptoms Patient denies exposure to infectious person. Patient denies travel to an Ebola-affected area in the 21 days before illness onset. No symptoms or risks identified at this time. Initial Sepsis Screen: Does the patient meet any 2 criteria? No. Patient's initial sepsis screen is negative. Does the patient have a suspected source of infection? No. Patient's initial sepsis screen is negative. Risk Assessment: Do you want to hurt yourself or someone else? Patient reports no desire to harm self or others. Onset of symptoms was March 14, 2023. 17:21 Method Of Arrival: EMS: [facility] iw 17:21 Acuity: ALEXIS 3 iw Historical: - Allergies: 17:23 Darvocet-N 100; iw 17:23 EGG/POULTRY; iw 17:23 Iodine; iw 17:23 Jtyypwq-Lqv-Ntj Reductase Inhibitor; iw - PMHx: 17:23 Arthritis; Chronic pain; Back pain; Hypertension; Kidney stones; Myocardial infarction; iw neuropathy; Rheumatoid Arthritis; - PSHx: 17:23 Stented artery; iw Screenin:33 [facility] ED Fall Risk Assessment (Adult) Score/Fall Risk Level 0 - 2 = Low Risk. Abuse iw screen: Denies threats or abuse. Denies injuries from another. Nutritional screening: No deficits noted. Tuberculosis screening: No symptoms or risk factors identified. Assessment: 18:00 General: Appears in no apparent distress. comfortable, Behavior is calm, cooperative. iw Pain: Complains of pain in chest. Neuro: Level of Consciousness is awake, alert, obeys commands, Oriented to person, place, time, situation, Moves all extremities. Full function. Cardiovascular: Reports chest pain, shortness of breath, Patient's skin is warm and dry. Respiratory: Reports cough that is productive, Respiratory effort is even, unlabored, Respiratory pattern is regular. Derm: Skin is fragile, is thin. Musculoskeletal: Range of motion: intact in all extremities. Vital Signs: 17:24 BP 161 / 59; Pulse 68; Resp 18; Temp 99.4; Pulse Ox 100% on R/A; iw 20:03 BP 125 / 50; Pulse 61; Resp 16; Temp 98; Pulse Ox 99% ; rv Georges Coma Score: 20:03 Eye Response: spontaneous(4). Motor Response: obeys commands(6). Verbal Response: rv oriented(5). Total: 15. ED Course: 17:20 Patient arrived in ED. iw 17:23 Triage completed. iw 17:24 Arm band placed on. iw 17:30 Murphy Zuniga MD is Attending Physician. rt 18:00 Initial lab(s) drawn, by me, sent to lab. Inserted saline lock: 22 gauge in left iw antecubital area, using aseptic technique. Blood collected. 18:00 No provider procedures requiring assistance completed. iw 18:20 Chest Single View In Process Unspecified. EDMS 18:31 Sally Miramontes, RN is Primary Nurse. kd3 18:33 Patient has correct armband on for positive identification. Provided Education on: . iw 20:04 IV discontinued, intact, bleeding controlled, No redness/swelling at site. Pressure rv dressing applied. Administered Medications: 20:03 Drug: AZITHromycin PO 500 mg PO once Route: PO; rv 20:03 Follow up: Response: Medication administered at discharge. rv 20:03 Drug: Oseltamivir PO 75 mg PO once Route: PO; rv 20:03 Follow up: Response: Medication administered at discharge. rv Medication: 18:33 VIS not applicable for this client. iw Outcome: 19:46 Discharge ordered by . rt 20:04 Discharged to home ambulatory, with family, rv 20:04 Condition: good 20:04 Discharge instructions given to patient, family, Instructed on discharge instructions, follow up and referral plans. medication usage, Demonstrated understanding of instructions, follow-up care, medications, Prescriptions given X 2, 20:04 Patient left the ED. rv Signatures: Dispatcher [employer] Paulette Mcmahon RN RN iw Vicente, Ronaldo, RN RN Sally Shields RN RN kd3 Murphy Zuniga MD MD rt
[2023-03-15] MEDS ORDERED: AZITHROMYCIN 250 MG TAB ONE (20:02)
[2023-03-15] MEDS ORDERED: OSELTAMIVIR 75 MG CAP PO ONE (20:02)
[2023-03-15 20:25] VITALS: BP 125/50; TEMP 98; O2SAT 99
--- NOTE | 2023-03-19 13:55 | EKG ---
Test Date: 2023-03-15 Test Time: 18:39:07 Recreational Assistant: ROMEO MEASUREMENT RESULTS: Intervals: Rate: 60 GA: 314 QRSD: 102 QT: 428 QTc: 428 [place]: P: 64 GA: 314 QRS: -5 T: 73 INTERPRETIVE STATEMENTS: Sinus rhythm with 1st degree AV block Otherwise normal ECG Compared to ECG 02/02/2023 17:38:07 Sinus arrhythmia no longer present Incomplete right bundle-branch block no longer present ST (T wave) deviation no longer present Possible ischemia no longer present Electronically Signed On 03-19-23 13:43:13 SCIENCE LIAISON by Tapan Pozo
== END 2023-03-15 20:04 | disposition home or self-care (01) ==
LOC: ER 17:18
DX: J11.1 Influenza due to unidentified influenza virus with other respiratory manifestations (principal); I25.2 Old myocardial infarction; I10 Essential (primary) hypertension; Z11.52 Encounter for screening for COVID-19; Z88.5 Allergy status to narcotic agent; Z88.8 Allergy status to other drugs, medicaments and biological substances; Z91.012 Allergy to eggs; Z91.048 Other nonmedicinal substance allergy status
CPT/HCPCS: 36415; 71045; 80053; 83880; 84484; 85025; 87804; 87811; 93005; 99284

== ENCOUNTER 2023-09-23 12:39 | Inpatient (IN) | payer OTHER ==
[2023-09-23 12:57] LABS: Absolute Basophils 0.1 K/uL (0-0.5); Absolute Eosinophils 0.6 K/uL (0-0.5); Absolute Lymphocytes (CBC) 1.5 K/uL (0.7-4.9); Absolute Monocytes 0.6 K/uL (0.1-1.3); Basophils % 0.9 % (0-1.3); Eosinophils % 9.2 % (0-4.4); Hematocrit 28.3 % (36.0-45.0); Hemoglobin 9.4 g/dL (12.0-15.0); Lymphocytes % 21.6 % (15.3-44.8); MCH 30.7 pg (27.0-35.0); MCHC 33.3 g/dL (32.0-36.0); MCV 92.3 fL (80-100); MPV 7.8 fL (7.6-11.3); Monocytes % 8.8 % (3.3-12.3); Neutrophils % 59.5 % (41.7-73.7); Platelets 234 thou/uL (152-406); RBC Red Blood Cell Count 3.07 M/uL (3.86-4.86); Red Cell Distribution Width 14.5 % (12.1-15.2)
[2023-09-23 13:37] LABS: Anion Gap 10.7 mEq/L (5.0-15.0); Potassium 5.7 mEq/L (3.5-5.1); Troponin High Sensitivity 17.8 pg/mL (<58.9)
--- NOTE | 2023-09-23 13:45 | RAD REPORT ---
EXAM DESCRIPTION: Macyt Single View09/23/2023 1:04 pm CLINICAL HISTORY: CHEST PAIN COMPARISON: Chest Single View dated 03/15/2023; Chest Single View dated 02/02/2023; Chest Pa And Lat (2 Views) dated 03/12/2022; Chest Single View dated 02/19/2021 TECHNIQUE: Portable AP view of the chest. FINDINGS: The lungs are clear. No pneumothorax or effusion. The cardiomediastinal contours are unre markable. Sequelae of median sternotomy and left atrial appendage occlusion device in place. Implant able rhythm monitoring device present. IMPRESSION: No acute cardiopulmonary process.
[2023-09-23] MEDS ORDERED: NA CHLORIDE 0.9% 500 ML ONE (14:38)
--- NOTE | 2023-09-23 16:40 | RAD REPORT ---
EXAM DESCRIPTION: CT - Chest Abd Pelvis Wo Con - 09/23/2023 2:45 pm CLINICAL HISTORY: chest pain, recent nephrectomy COMPARISON: Thorax Wo Con dated 08/09/2021; THORAX WO CONTRAST dated 01/22/2007 TECHNIQUE: Thin axial CT images of the chest, abdomen, and pelvis, performed without IV contrast. Mu ltiplanar reformats were generated and reviewed. All CT scans are performed using dose optimization technique as appropriate and may include automated exposure control or mA/KV adjustment according to patient size. FINDINGS: Varicose bronchiectatic changes with volume loss in the left lower lobe, stable. Areas of tree-in-bud opacification in the upper segment left lower lobe and peripheral left upper lobe may be slightly progressive since the prior exam, may represent a mild infectious/ inflammatory process.No p leural or pericardial effusion.No intrathoracic adenopathy. Left atrial appendage occlusion device. The liver, spleen, pancreas, adrenal glands and left kidney are within normal limits. Right kidney w as surgically removed. Gallbladder was surgically removed. Small volume free air in the retroperitoneum, right lower pelvis, and in the right subdiaphragmatic s pace. This appears to be within expected limits for post nephrectomy status. No evidence of bowel obs truction, or fluid collections. Moderately abundant free air along the anterior abdominal wall. Heterogeneous mildly hyperdense foci along the right anterior abdominal wall muscles, without discrete fluid collections. Patient reported ly had anterior approach nephrectomy. No pathologic lymphadenopathy in the abdomen or pelvis. No worrisome osseous finding. IMPRESSION: Mild areas of tree-in-bud opacification in the lower aspects of the left upper lobe and upper segment of the left lower lobe, may represent a mild infectious/ inflammatory process. Stable a reas of bronchiectasis in the basal left lower lobe, may represent sequelae of COPD or nontuberculous mycobacterial infection. Sequelae of right nephrectomy as above. Small areas of hyperdensity along the right anterior abdomina l wall musculature, may represent small seromas. Other incidental findings as above.
--- NOTE | 2023-09-23 16:49 | ER ---
Nurse's Notes [facility] Name: Yeison Ellis Age: 82 yrs Sex: Female : 1940 Arrival Date: 09/23/2023 Time: 12:39 Bed [id number] Private MD: Diagnosis: Chest pain, unspecified;Dehydration Presentation: 09/22 12:42 Chief complaint: EMS states: toned out for sharp chest pain. Coronavirus screen: At ld1 this time, the client does not indicate any symptoms associated with coronavirus-19. Ebola Screen: No symptoms or risks identified at this time. Initial Sepsis Screen: Does the patient meet any 2 criteria? No. Patient's initial sepsis screen is negative. Does the patient have a suspected source of infection? No. Patient's initial sepsis screen is negative. Risk Assessment: Do you want to hurt yourself or someone else? Patient reports no desire to harm self or others. Onset of symptoms was September 23, 2023. 12:42 Method Of Arrival: EMS: [facility] ld1 12:42 Acuity: ALEXIS 3 ld1 Triage Assessment: 12:42 General: Appears in no apparent distress. comfortable, Behavior is calm, cooperative, ld1 appropriate for age. Pain: Complains of pain in chest Pain does not radiate. Pain currently is 7 out of 10 on a pain scale. Quality of pain is described as throbbing, Pain began suddenly, Is continuous. EENT: No signs and/or symptoms were reported regarding the EENT system. Neuro: Level of Consciousness is awake, alert, obeys commands, Oriented to person, place, time, situation. Cardiovascular: Capillary refill < 3 seconds Patient's skin is warm and dry. Rhythm is sinus rhythm. Respiratory: Airway is patent Respiratory effort is even, unlabored. GI: Abdomen is flat, non-distended. : No signs and/or symptoms were reported regarding the genitourinary system. Derm: No signs and/or symptoms reported regarding the dermatologic system. Musculoskeletal: No signs and/or symptoms reported regarding the musculoskeletal system. Historical: - Allergies: 12:41 Darvocet-N 100; ld1 12:41 EGG/POULTRY; ld1 12:41 Iodine; ld1 12:41 Qjdvdpe-Adj-Ttm Reductase Inhibitor; ld1 - Home Meds: 12:41 Plavix 75 mg Oral tab 1 tab once daily [Active]; ld1 - PMHx: 12:41 Arthritis; Back pain; Chronic pain; Hypertension; Kidney stones; Myocardial infarction; ld1 neuropathy; Rheumatoid Arthritis; - PSHx: 12:41 Stented artery; ld1 - Immunization history:: Adult Immunizations up to date. - Infectious Disease History:: Denies. - Social history:: Smoking status: Patient denies any tobacco usage or history of. - Family history:: not pertinent. - Hospitalizations: : Patient was recently seen at. Screenin:45 [facility] ED Fall Risk Assessment (Adult) History of falling in the last 3 months, ld1 including since admission No falls in past 3 months (0 pts). Abuse screen: Denies threats or abuse. Denies injuries from another. Nutritional screening: No deficits noted. Tuberculosis screening: No symptoms or risk factors identified. Assessment: 12:45 Reassessment: See triage assessment. ld1 16:22 Reassessment: No changes from previously documented assessment. Patient and/or family ld1 updated on plan of care and expected duration. Pain level reassessed. Patient is alert, oriented x 3, equal unlabored respirations, skin warm/dry/pink. 17:57 Reassessment: No changes from previously documented assessment. Patient and/or family ld1 updated on plan of care and expected duration. Pain level reassessed. Patient denies pain at this time. 19:33 Reassessment: Patient appears in no apparent distress at this time. Patient and/or bm8 family updated on plan of care and expected duration. Pain level reassessed. Patient is alert, oriented x 3, equal unlabored respirations, skin warm/dry/pink. Patient denies pain at this time. General: Appears in no apparent distress. comfortable, Behavior is calm, cooperative, appropriate for age. Pain: Denies pain. Neuro: Level of Consciousness is awake, alert, obeys commands, Oriented to person, place, time, situation. Cardiovascular: Denies chest pain, Capillary refill < 3 seconds Patient's skin is warm and dry. Respiratory: Airway is patent Trachea midline Respiratory effort is even, unlabored, Respiratory pattern is regular, symmetrical. GI: No signs and/or symptoms were reported involving the gastrointestinal system. : No signs and/or symptoms were reported regarding the genitourinary system. EENT: No signs and/or symptoms were reported regarding the EENT system. Derm: No signs and/or symptoms reported regarding the dermatologic system. Musculoskeletal: No signs and/or symptoms reported regarding the musculoskeletal system. Vital Signs: 12:42 BP 139 / 68; Pulse 76; Resp 18; Temp 97.8(TE); Pulse Ox 100% on R/A; Weight 60.78 kg; ld1 Height 5 ft. 2 in. ; Pain 7/10; 13:48 BP 124 / 60; Pulse 67; Resp 18; Pulse Ox 100% on R/A; ld1 14:28 BP 133 / 62; Pulse 64; Resp 18; Pulse Ox 100% on R/A; ld1 15:15 BP 147 / 59; Pulse 65; Resp 18; Pulse Ox 100% on R/A; ld1 16:22 BP 142 / 76; Pulse 61; Resp 18; Pulse Ox 99% on R/A; ld1 17:57 BP 147 / 87; Pulse 79; Resp 18; Pulse Ox 97% on R/A; ld1 19:33 BP 143 / 80; Pulse 79; Resp 18; Temp 98.2; Pulse Ox 100% ; Pain 0/10; bm8 12:42 Body Mass Index 24.51 (60.78 kg, 157.48 cm) ld1 12:42 Pain Scale: Adult ld1 19:33 Pain Scale: Adult bm8 [place] Coma Score: 19:33 Eye Response: spontaneous(4). Motor Response: obeys commands(6). Verbal Response: bm8 oriented(5). Total: 15. ED Course: 12:41 Patient arrived in ED. rn 12:41 Marbin Dominguez MD is Attending Physician. rn 12:42 Arm band placed on. EKG completed in triage. Results shown to MD. ld1 12:44 Triage completed. ld1 12:45 Patient has correct armband on for positive identification. Placed in gown. Bed in low ld1 position. Call light in reach. Side rails up X2. cae engineer on. Pulse ox on. NIBP on. Door closed. Noise minimized. Warm blanket given. 12:45 No provider procedures requiring assistance completed. ld1 12:46 Lety López, PIEDAD is Primary Nurse. ld1 13:06 XRAY Chest (1 view) In Process Unspecified. EDMS 14:46 CT Chest Abdomen Pelvis W/O Contrast In Process Unspecified. EDMS 16:48 Barney Ruiz is Hospitalizing Provider. rn 19:33 Provided Education on: need for admission. bm8 19:33 Inserted saline lock: 20 gauge in right antecubital area, using aseptic technique. bm8 Blood collected. 20:01 applied pur wic to pt per her request. bm8 09/23 00:33 Patient admitted, IV remains in place. bm8 Administered Medications: 09/22 15:05 Drug: NS 0.9% IV 500 ml IV at bolus once Route: IV; Rate: bolus; Site: right upper arm; iw 19:36 Follow up: Response: No adverse reaction; IV Status: Completed infusion; IV Intake: bm8 500ml 17:38 Drug: Rocephin IV 1 grams IV at calculated rate once; Given slow IV push per pharmacy ld1 instructions Route: IV; Rate: calculated rate; Site: right antecubital; 19:36 Follow up: Response: No adverse reaction; IV Status: Completed infusion; IV Intake: [id number] 17:38 Drug: Zithromax IVPB 500 mg IVPB once over 1 hrs; mix in 250 mL NS Route: IVPB; Infused ld1 Over: 1 hrs; Site: right antecubital; 19:35 Follow up: Response: No adverse reaction; IV Status: Completed infusion; IV Intake: bm8 250ml Medication: 19:33 VIS not applicable for this client. bm8 Intake: 19:35 IV: 250ml; Total: 250ml. bm8 19:36 IV: 50ml; Total: 300ml. bm8 19:36 IV: 500ml; Total: 800ml. bm8 Outcome: 16:49 Decision to Hospitalize by Provider. rn 09/23 00:33 Admitted to Med/surg accompanied by nurse, via stretcher, with chart, bm8 Condition: stable Instructed on the need for admit, 01:02 Patient left the ED. bm8 Signatures: Dispatcher [employer] EDMS Paulette Mahajan RN RN iw Marbin Dominguez MD MD rn Sims, Lauren, RN RN ld1 Rishabh Sharpe RN RN bm8
--- NOTE | 2023-09-23 16:49 | EDPHYS ---
Physician Documentation [facility] Name: Yeison Ellis Age: 82 yrs Sex: Female : 1940 Arrival Date: 09/23/2023 Time: 12:39 Bed [id number] Private MD: ED Physician Marbin Dominguez HPI: 09/22 12:56 This 82 yrs old Female presents to ER via EMS with complaints of chest pain. rn 12:56 The patient or guardian reports chest pain that is located primarily in the substernal rn area. Onset: this morning. The pain does not radiate. Associated signs and symptoms: Pertinent negatives: abdominal pain, cough, diaphoresis, headache, lower extremity swelling, palpitations, shortness of breath, syncope, vomiting. The chest pain is described as burning. Duration: The patient or guardian reports multiple episodes, that have now resolved. Severity of pain: At its worst the pain was mild in the emergency department the pain has resolved. The patient has not experienced similar symptoms in the past. Patient reports this morning had 2 episodes of chest pain, each lasted a few seconds, felt burning, no radiation, no association with shortness of breath or cough. Denies fever. Denies trauma. Of note patient did have a nephrectomy this past week at [facility] in [place] for cancer. Denies history of DVT or PE. Patient states felt like a heartburn type pain. Currently denies any pain. Historical: - Allergies: 12:41 Darvocet-N 100; ld1 12:41 EGG/POULTRY; ld1 12:41 Iodine; ld1 12:41 Ketoqaf-Ndc-Nfe Reductase Inhibitor; ld1 - Home Meds: 12:41 Plavix 75 mg Oral tab 1 tab once daily [Active]; ld1 - PMHx: 12:41 Arthritis; Back pain; Chronic pain; Hypertension; Kidney stones; Myocardial infarction; ld1 neuropathy; Rheumatoid Arthritis; - PSHx: 12:41 Stented artery; ld1 - Immunization history:: Adult Immunizations up to date. - Infectious Disease History:: Denies. - Social history:: Smoking status: Patient denies any tobacco usage or history of. - Family history:: not pertinent. - Hospitalizations: : Patient was recently seen at. ROS: 12:56 Constitutional: Negative for fever, chills, and weight loss, Eyes: Negative for injury, rn pain, redness, and discharge, Neck: Negative for injury, pain, and swelling, Cardiovascular: Positive for chest pain Respiratory: Negative for shortness of breath, cough, wheezing, and pleuritic chest pain, Abdomen/GI: Negative for abdominal pain, nausea, vomiting, diarrhea, and constipation, Back: Negative for injury and pain, MS/Extremity: Negative for injury and deformity, Skin: Negative for injury, rash, and discoloration, Neuro: Negative for headache, weakness, numbness, tingling, and seizure, Exam: 12:56 Constitutional: This is a well developed, well nourished patient who is awake, alert, rn and in no acute distress. Cardiovascular: Regular rate and rhythm. No pulse deficits. Respiratory: No increased work of breathing, no retractions or nasal flaring. Abdomen/GI: Soft, nontender MS/ Extremity: Pulses equal, no cyanosis. Neuro: Awake and alert, GCS 15 15:29 ECG was reviewed by the Attending Physician. rn 16:32 Skin: Right suprapubic surgical wound, no dehiscence, clean dry and intact. Mild rn ecchymosis around wound Vital Signs: 12:42 BP 139 / 68; Pulse 76; Resp 18; Temp 97.8(TE); Pulse Ox 100% on R/A; Weight 60.78 kg; ld1 Height 5 ft. 2 in. ; Pain 7/10; 13:48 BP 124 / 60; Pulse 67; Resp 18; Pulse Ox 100% on R/A; ld1 14:28 BP 133 / 62; Pulse 64; Resp 18; Pulse Ox 100% on R/A; ld1 15:15 BP 147 / 59; Pulse 65; Resp 18; Pulse Ox 100% on R/A; ld1 16:22 BP 142 / 76; Pulse 61; Resp 18; Pulse Ox 99% on R/A; ld1 17:57 BP 147 / 87; Pulse 79; Resp 18; Pulse Ox 97% on R/A; ld1 19:33 BP 143 / 80; Pulse 79; Resp 18; Temp 98.2; Pulse Ox 100% ; Pain 0/10; bm8 12:42 Body Mass Index 24.51 (60.78 kg, 157.48 cm) ld1 12:42 Pain Scale: Adult ld1 19:33 Pain Scale: Adult bm8 Georges Coma Score: 19:33 Eye Response: spontaneous(4). Motor Response: obeys commands(6). Verbal Response: bm8 oriented(5). Total: 15. MDM: 12:41 Patient medically screened. rn 16:45 Differential diagnosis: acute myocardial infarction, acute pericarditis, chest wall rn pain, costochondritis, gastroesophageal reflux disease (GERD), pericarditis, pleurisy, pneumonia, pneumothorax, pulmonary embolus. HEART Score: History: Slightly Suspicious (0), ECG: Normal (0), Age: > or = 65 years (2), Risk Factors: > or = 3 Risk factors for atherosclerotic disease (2), Troponin: < or = 1 x Normal Limit (0), Total Score = 4. Data reviewed: vital signs, nurses notes, lab test result(s), EKG, radiologic studies, CT scan, plain films, and as a result, I will admit patient. Care significantly affected by the following chronic conditions: Hypertension. Counseling: I had a detailed discussion with the patient and/or guardian regarding the historical points, exam findings, and any diagnostic results supporting the discharge/admit diagnosis, lab results, radiology results, the need for further work-up and treatment in the hospital. Response to treatment:. ED course: CT imaging negative for surgical complication of recent nephrectomy. Shows tree-in-bud opacities and possible pulmonary inflammation such as infection or pneumonitis. Mild renal insufficiency compared to 2022 but also recent admission. Will admit to hospitalist with IV hydration, antibiotics. 17:34 ED course: Patient states has been taking supplemental potassium since hospitalization rn and discharge which could explain her hyperkalemia. 09/22 12:42 Order name: Basic Metabolic Panel; Complete Time: 13:44 rn 09/22 12:42 Order name: CBC with Diff; Complete Time: 13:44 rn 09/22 12:42 Order name: NT PRO-BNP; Complete Time: 13:44 rn 09/22 12:42 Order name: Troponin HS; Complete Time: 13:44 rn 09/22 18:00 Order name: CBC with Automated Diff EDMS 09/22 18:00 Order name: CBC with Automated Diff EDMS 09/22 18:00 Order name: CBC with Automated Diff EDMS 09/22 18:00 Order name: Comprehensive Metabolic Panel EDMS 09/22 18:00 Order name: Comprehensive Metabolic Panel EDMS 09/22 18:00 Order name: Comprehensive Metabolic Panel EDMS 09/22 18:00 Order name: Comprehensive Metabolic Panel EDMS 09/22 18:00 Order name: Creatine Phosphokinase EDMS 09/22 18:00 Order name: Creatine Phosphokinase EDMS 09/22 18:00 Order name: Creatine Phosphokinase EDMS 09/22 18:00 Order name: Creatine Phosphokinase EDMS 09/22 18:00 Order name: Lipid Profile EDMS 09/22 18:00 Order name: Lipid Profile EDMS 09/22 18:00 Order name: Magnesium EDMS 09/22 18:00 Order name: Magnesium EDMS 09/22 18:00 Order name: Magnesium EDMS 09/22 18:00 Order name: Magnesium EDMS 09/22 18:00 Order name: Phosphorus EDMS 09/22 18:00 Order name: Phosphorus EDMS 09/22 18:00 Order name: Phosphorus EDMS 09/22 18:00 Order name: Phosphorus EDMS 09/22 18:00 Order name: Protime (+INR) EDMS 09/22 18:00 Order name: Protime (+INR) EDMS 09/22 18:00 Order name: PTT, Activated Partial Thromb EDMS 09/22 18:00 Order name: PTT, Activated Partial Thromb EDMS 09/22 18:01 Order name: Urinalysis w/ reflexes EDMS 09/22 18:01 Order name: CBC with Automated Diff EDMS 09/22 18:04 Order name: Blood Culture EDMS 09/22 18:04 Order name: Urine Culture EDMS 09/22 12:42 Order name: XRAY Chest (1 view); Complete Time: 13:48 rn 09/22 14:37 Order name: CT Chest Abdomen Pelvis W/O Contrast; Complete Time: 16:42 rn 17 18:00 Order name: CONS Physician Consult EDMS 09/22 12:42 Order name: Cardiac monitoring; Complete Time: 12:45 rn 09/22 12:42 Order name: EKG - Nurse/Tech; Complete Time: 12:45 rn 09/22 12:42 Order name: IV Saline Lock; Complete Time: 13:08 rn 09/22 12:42 Order name: Labs collected and sent; Complete Time: 13:08 rn 09/22 12:42 Order name: O2 Per Protocol; Complete Time: 12:45 rn 09/22 12:42 Order name: O2 Sat Monitoring; Complete Time: 12:46 rn EC:29 Rate is 80 beats/min. Rhythm is regular. QRS [place] is Normal. ME interval is prolonged rn at 322 msec. QRS interval is normal. QT interval is normal. No Q waves. T waves are Normal. No ST changes noted. Clinical impression: 1st degree heart block. Interpreted by me. Reviewed by me. Administered Medications: 15:05 Drug: NS 0.9% IV 500 ml IV at bolus once Route: IV; Rate: bolus; Site: right upper arm; iw 19:36 Follow up: Response: No adverse reaction; IV Status: Completed infusion; IV Intake: bm8 500ml 17:38 Drug: Rocephin IV 1 grams IV at calculated rate once; Given slow IV push per pharmacy ld1 instructions Route: IV; Rate: calculated rate; Site: right antecubital; 19:36 Follow up: Response: No adverse reaction; IV Status: Completed infusion; IV Intake: 81omer8 17:38 Drug: Zithromax IVPB 500 mg IVPB once over 1 hrs; mix in 250 mL NS Route: IVPB; Infused ld1 Over: 1 hrs; Site: right antecubital; 19:35 Follow up: Response: No adverse reaction; IV Status: Completed infusion; IV Intake: bm8 250ml Disposition Summary: 09/23/23 16:49 Hospitalization Ordered Notes: Hospitalization Status: Observation rn Provider: Barney Ruiz [facility]n [facility] rn Condition: Stable rn Problem: new rn Symptoms: have improved rn Bed/Room Type: Standard rn Room Assignment: 205(09/23/23 23:02) Diagnosis - Chest pain, unspecified rn - Dehydration rn Forms: - Medication Reconciliation Form rn - SBAR form rn - Leadership Thank You Letter rn Signatures: Dispatcher [employer] EDSwathi Foote RN Paulette Nicholas RN RN iw Nieto, Roman, MD MD rn Sims, Lauren, RN RN Rishabh Lo RN bm8 Corrections: (The following items were deleted from the chart) 12:42 12:42 Chest Single View+RAD.RAD.BRZ ordered. EDMS EDMS 14:37 14:37 Chest Abdomen Pelvis Wo Con+CT.RAD.BRZ ordered. EDMS EDMS 23:02 16:49 rn kl
[2023-09-23] MEDS ORDERED: CEFTRIAXONE 1000 MG/VIAL ONE (17:23)
[2023-09-23] MEDS ORDERED: AZITHROMYCIN 500 MG INJ IVPB ONE (17:23)
[2023-09-23] MEDS ORDERED: NA CHLORIDE 0.9% 250 ML ONE (17:24)
[2023-09-23] MEDS ORDERED: ACETAMINOPHEN 325 MG TABLET PO PRN (17:45)
[2023-09-23] MEDS: CALCIUM GLUCONATE 1 GM IVPB 1 GM/50 ML BAG IV ONE (17:45)
[2023-09-23] MEDS: NA CHLORIDE 0.9% 1,000 ML IV SCH (18:00)
[2023-09-23] MEDS: INSULIN REGULAR (HUMAN) 100 UNIT/ML IV ONE (18:00)
[2023-09-23] MEDS: D10W 250 ML BAG IV ONE (19:00)
[2023-09-23] MEDS ORDERED: SIMETHICONE 125 MG TAB PO PRN (19:15)
--- NOTE | 2023-09-23 19:15 | P.HP ---
Certification for Inpatient Patient admitted to: Inpatient With expected LOS: >2 Midnights Patient will require the following post-hospital care: None Practitioner: I am a practitioner with admitting privileges, knowledge of patient current condition, hospital course, and medical plan of care. Services: Services provided to patient in accordance with Admission requirements found in Title 42 Section 412.3 of the Code of Federal Regulations <FernandoGladys Nunez - Last Filed: 09/23/23 19:33> Patient History Date of Service: 09/23/23 Reason for admission: pneumonia, s/p nephrectomy, ANDRZEJ History of Present Illness: Pt is an 82 yo female with past medical history of Arthritis, Back pain, Htn, Neuropathy, CHF, CAD s/p RI, RA and Neuropathy, nephrectomy last week at [facility] due to renal cancer, who presents with chest pain. She describes the pain as indigestion. The substernal chest pain is non-radiating and intermittent in nature with severity of 6/10. PT had 2 episodes of chest pain this am and it was not associated with SOB and cough. On admission, lab studes show wbc 6.8, Hgb 9.4, k 5.7, Cr 2.23, glucose 196, Na 134. BNP 4314, CT abd/pelvis shows left upper and left lower lung pneumonia. At bedside, pt is in NAD. Home medications list reviewed: Yes - Past Medical/Surgical History Has patient received pneumonia vaccine in the past: No Diabetic: Yes -: Hypertension -: Diabetes mellitus type 2 -: CAD -: Chronic diastolic CHF -: Severe PAD -: Arthritis -: Spider bites in legs -: 3-pinged nerves at the back/sciatic nerve -: Neuropathy -: Chronic back pain -: Cardiac Stents CABG -: Endoscopy -: Tubal Ligation -: Hysterectomy -: L knee repair -: galbladder removed -: hemorrhoidectomy -: clots in legs removed Psychosocial/ Personal History: Patient lives at home with grandchildren, is retired - Family History Brother -: Heart disease, Hypertension, Diabetes Father -: Heart disease, Hypertension, Lung disease, Liver disease Sister -: Heart disease, Hypertension Mother -: Heart disease, Hypertension - Social History Smoking Status: Never smoker Alcohol use: No CD- Drugs: No Caffeine use: Yes Place of Residence: Home <Gladys King - Last Filed: 09/23/23 19:33> Date of Service: 09/23/23 <Marco Concepcion - Last Filed: 09/23/23 21:56> Allergies iodine Allergy (Verified 02/20/21 08:09) Itching/Hives/Rash propoxyphene napsylate [From Darvocet-N] Adverse Reaction (Intermediate, Verified 02/20/21 08:09) Nausea/Vomiting cauliflower Adverse Reaction (Verified 02/20/21 08:09) Nausea/Vomiting egg Adverse Reaction (Verified 02/20/21 08:09) Nausea/Vomiting Home Medications: Aspirin [Pura Chewable Aspirin] 81 mg PO DAILY 09/16/13 Clopidogrel Bisulfate [Plavix*] 75 mg PO DAILY #0 tablet 09/19/13 Atorvastatin Calcium 20 mg PO BEDTIME 10/12/19 Lisinopril [Zestril] 1 tab PO DAILY 10/12/19 Metoprolol Tartrate 25 mg PO BID 10/12/19 Pantoprazole [Protonix Tab*] 1 tab PO DAILY 10/12/19 Famotidine 20 mg PO BID 07/25/20 Hydrocodone 10/APAP 325 [Haslet 10/325*] 1 tab PO Q4HR PRN 07/25/20 Cyanocobalamin/Cobamamide [Vitamin B-12 5,000 Mcg Tab Sl] 1 each SL DAILY #30 tab.subl 07/27/20 Nitrofurantoin Macrocrystal [Nitrofurantoin] 50 mg PO BID #28 capsule 07/27/20 Gabapentin [Neurontin*] 100 mg PO BEDTIME 02/20/21 Pentoxifylline 400 mg PO BIDAC 02/20/21 Review of Systems 10-point ROS is otherwise unremarkable Respiratory: As per HPI Cardiovascular: As per HPI Gastrointestinal: Other ("heartburn") <Gladys King - Last Filed: 09/23/23 19:33> Physical Examination - Physical Exam General: Alert, In no apparent distress, Oriented x3, Other (pallor) HEENT: Atraumatic, Normocephalic Neck: Supple Respiratory: Normal air movement Cardiovascular: Normal pulses, Regular rate/rhythm Capillary refill: <2 Seconds Gastrointestinal: Other (mild lower abdomen, + everton/skin adhesive), Tenderness Musculoskeletal: No clubbing, No swelling Integumentary: No rashes, Other (recent right nephrectomy) Neurological: Normal speech, Normal tone, Normal affect Lymphatics: No axilla or inguinal lymphadenopathy External genitalia: Deferred Rectal: Deferred - Studies Laboratory Data (last 24 hrs) 09/23/23 09/23/23 12:49 12:49 WBC 6.80 Hgb 9.4 L Hct 28.3 L Plt Count 234 Sodium 134 L Potassium 5.7 H BUN 44 H Creatinine 2.23 H Glucose 196 H <Gladys King - Last Filed: 09/23/23 19:33> - Studies Laboratory Data (last 24 hrs) 09/23/23 09/23/23 12:49 12:49 WBC 6.80 Hgb 9.4 L Hct 28.3 L Plt Count 234 Sodium 134 L Potassium 5.7 H BUN 44 H Creatinine 2.23 H Glucose 196 H <Marco Concepcion - Last Filed: 09/23/23 21:56> Assessment and Plan - Plan Pneumonia Blood cultures Cefepime 1gm IV BID ANDRZEJ with Hyperkalemia tele (EKG in ED with 1st degree block) Gentle hydration hyperkalemia protocol, lokelma x 1 dose Monitor and trend electrolytes Dyspepsia Protonix Simethicone HTN Continue home meds Hold Lisinopril 2nd to potassium HLD Continue home meds PVD US bilat lower ext Plavix 75mg po daily ASA EC 81mg po daily SCDs VRE/GI prophylaxis SCDs, Heparin/Protonix - Advance Directives Does patient have a Living Will: No Does patient have a Durable POA for Healthcare: No <Gladys King - Last Filed: 09/23/23 19:33> Physician Review Additional Text: Pt seen and examined. I agree with the note by the MARKETING SALES SUPERVISOR. Pt is an 82 yo male with past medical history of Arthritis, Back pain, Htn, Neuropathy, Htn, CAD s/p RI, RA and Neuropathy who presents with chest pain. The substernal chest pain is non-radiating and intermittent in nature with severity of 6/10. PT had 2 episodes of chest pain this am and it was associated with SOB and cough. Of note, pt had nephrectomy last week at [facility] due to renal cancer. On admission, lab studes show wbc 6.8, Hgb 9.4, k 5.7, Cr 2.23, glucose 196, Na 134. BNP 4314, CT abd/pelvis shows left upper and left lower lung pneumonia. At bedside, pt is in NAD. A/P: Pneumonia: Will continue cefepime. F/u blood cx. Hyponatremia: Na is 134. Will give IVF and trend Na level. Hyperkalemia: Likely due to poor renal function. Will give lokelma ANDRZEJ: Cr is 2.23. Will continue gentle IVF, avoid nephrotoxins and monitor renal function ElevatedBNP: BNP is 4314. Will f/u Echo. r/o CHF Htn: Continue home med Hx of CAD s/p RI: Continue home med. DVT ppx: heparin Code: full <Marco Concepcion - Last Filed: 09/23/23 21:56>
[2023-09-23] MEDS: HEPARIN 5000 UNIT/ML 1 ML VIAL SQ SCH (21:00)
[2023-09-23] MEDS: CEFEPIME 1 GM in NA CHLORIDE 0.9% 100 ML IV SCH (21:00)
[2023-09-23] MEDS: ATORVASTATIN 40 MG TAB PO SCH (21:00)
[2023-09-23] MEDS ORDERED: CALCIUM GLUCONATE 1 GM IVPB 1 GM/50 ML BAG IV ONE (22:40)
[2023-09-23] MEDS ORDERED: ATORVASTATIN 40 MG TAB ONE (22:42)
[2023-09-23] MEDS ORDERED: INSULIN REGULAR (HUMAN) 100 UNIT/ML ONE (22:42)
[2023-09-23] MEDS ORDERED: HEPARIN 5000 UNIT/ML 1 ML VIAL ONE (22:42)
[2023-09-23] MEDS ORDERED: NA CHLORIDE 0.9% 100 ML ONE (22:43)
[2023-09-23] MEDS ORDERED: NA CHLORIDE 0.9% 1,000 ML ONE (22:43)
[2023-09-23] MEDS ORDERED: CEFEPIME 1 GM/VIAL ONE (22:43)
[2023-09-23] MEDS ORDERED: D10W 250 ML IV ONE (22:44)
[2023-09-23] MEDS: HYDROCODONE/APAP 10/325 TAB PO PRN (23:54)
[2023-09-23] MEDS: MORPHINE 4 MG/ML SYR IV PRN (23:54)
[2023-09-23] MEDS ORDERED: HYDROCODONE/APAP 10/325 TAB ONE (23:56)
[2023-09-23] MEDS ORDERED: MORPHINE 2 MG/ML SYR ONE (23:56)
[2023-09-24 01:17] VITALS: BMI 24.5
[2023-09-24] MEDS: SODIUM ZIRCONIUM CYCLOSILICATE 10 GM/PKT ONE (01:24)
[2023-09-24] MEDS: SODIUM ZIRCONIUM CYCLOSILICATE 10 GM/PKT PO ONE (01:39)
[2023-09-24 04:01] LABS: Specific Gravity 1.008 (1.005-1.030); Sqamous Epithelial <5 /HPF (None Seen); Urine Bacteria 20-50 /HPF (<20); Urine Bilirubin NEGATIVE (Negative); Urine Blood Negative (Negative); Urine Clarity Extremely Turbid (Clear); Urine Color Light-Yellow (Yellow); Urine Culture Reflex Order REFLEXED; Urine Glucose NEGATIVE (Negative); Urine Ketones NEGATIVE (Negative); Urine Microscopic Reflex YN ORDER UMIC; Urine Mucus Slight /HPF (None Seen); Urine Nitrite NEGATIVE (Negative); Urine Protein NEGATIVE (Negative); Urine RBC <5 /HPF (None Seen); Urine Urobilinogen Normal (Normal); Urine WBC >50 /HPF (<5)
[2023-09-24 05:58] LABS: Absolute Basophils 0.1 K/uL (0-0.5); Absolute Eosinophils 0.5 K/uL (0-0.5); Absolute Lymphocytes (CBC) 1.4 K/uL (0.7-4.9); Absolute Monocytes 0.5 K/uL (0.1-1.3); Absolute Neutrophil 2.7 K/uL (1.8-8.0); Basophils % 1.1 % (0-1.3); Eosinophils % 10.8 % (0-4.4); Hematocrit 28.4 % (36.0-45.0); Hemoglobin 9.4 g/dL (12.0-15.0); MCH 30.3 pg (27.0-35.0); MCHC 32.9 g/dL (32.0-36.0); MCV 92.1 fL (80-100); MPV 7.7 fL (7.6-11.3); Monocytes % 8.9 % (3.3-12.3); Neutrophils % 52.2 % (41.7-73.7); Platelets 220 thou/uL (152-406); RBC Red Blood Cell Count 3.09 M/uL (3.86-4.86); Red Cell Distribution Width 14.4 % (12.1-15.2)
[2023-09-24 06:05] LABS: PT Prothrombin Time 11.6 SECONDS (9.5-12.5); PTT, Activated Partial Thromb 29.7 SECONDS (24.3-36.9); Protime INR 1.06
[2023-09-24 06:21] LABS: ALT/SGPT 21 U/L (13-56); AST/SGOT 12 U/L (15-37); Albumin 2.9 g/dL (3.4-5.0); Albumin/Globulin Ratio 0.8 (1.1-1.8); Anion Gap 9.2 mEq/L (5.0-15.0); BUN Blood Urea Nitrogen 42 mg/dL (7-18); Bicarbonate 22 mEq/L (21-32); Bilirubin Total 0.4 mg/dL (0.2-1.0); Creatine Phosphokinase 30 U/L (26-192); Globulin 3.5 g/dL (2.3-3.5); Glomerular Filtration Rate 25 ml/min (=/>90); Glucose Level 121 mg/dL (74-106); HDL Cholesterol 40 mg/dL (40-60); LDL Cholesterol, Calculated 65 mg/dL (<130); LDL Cholesterol,Calc NonReport 65; Magnesium 2.1 mg/dL (1.6-2.4); Phosphorus 4.5 mg/dL (2.5-4.9); Potassium 5.2 mEq/L (3.5-5.1); Protein, Total 6.4 g/dL (6.4-8.2); Sodium Level 139 mEq/L (136-145)
[2023-09-24 06:22] LABS: Alkaline Phosphatase < 14 U/L (45-117)
[2023-09-24] MEDS: ALBUTEROL 2.5 MG/3 ML NEB SOL NEB ONE ×2 (07:30→07:58)
[2023-09-24] MEDS: CLOPIDOGREL 75 MG TABLET PO SCH (08:59)
[2023-09-24] MEDS: ASPIRIN EC 81 MG TAB PO SCH (08:59)
--- NOTE | 2023-09-24 10:12 | P.PN ---
Subjective Date of Service: 09/24/23 Chief Complaint: pneumonia, s/p nephrectomy, ANDRZEJ Subjective: Improving <Gladys Kinglen - Last Filed: 09/24/23 09:58> Date of Service: 09/24/23 <Marco Concepcion - Last Filed: 09/24/23 11:43> Review of Systems 10-point ROS is otherwise unremarkable Respiratory: As per HPI Cardiovascular: As per HPI <KnigGladyslen - Last Filed: 09/24/23 09:58> Physical Examination - Vital Signs Temperature: 96.8 F Blood Pressure: 160/74 Pulse: 65 Respirations: 16 Pulse Ox (%): 100 - Physical Exam General: Alert, In no apparent distress, Oriented x3 HEENT: Atraumatic, Normocephalic Neck: Supple Respiratory: Normal air movement Cardiovascular: Normal pulses, Regular rate/rhythm Capillary refill: <2 Seconds Gastrointestinal: Normal bowel sounds, Other (large ventral hernia) Musculoskeletal: No clubbing, No swelling Integumentary: No rashes Neurological: Normal speech, Normal tone, Normal affect Lymphatics: No axilla or inguinal lymphadenopathy External genitalia: Deferred Rectal: Deferred - Studies Laboratory Data (last 24 hrs) 09/23/23 09/23/23 12:49 12:49 WBC 6.80 Hgb 9.4 L Hct 28.3 L Plt Count 234 Sodium 134 L Potassium 5.7 H BUN 44 H Creatinine 2.23 H Glucose 196 H <Deborah Kingy Enrique - Last Filed: 09/24/23 09:58> - Studies Laboratory Data (last 24 hrs) 09/23/23 09/23/23 12:49 12:49 WBC 6.80 Hgb 9.4 L Hct 28.3 L Plt Count 234 Sodium 134 L Potassium 5.7 H BUN 44 H Creatinine 2.23 H Glucose 196 H <Marco Concepcion - Last Filed: 09/24/23 11:43> Assessment And Plan - Plan Pneumonia Blood cultures Cefepime 1gm IV BID ANDRZEJ with Hyperkalemia tele (EKG in ED with 1st degree block) Gentle hydration hyperkalemia protocol, lokelma x 1 dose Monitor and trend electrolytes 09/23 potassium this am 5.2 Dyspepsia Protonix Simethicone HTN Continue home meds 09/23 (Losartan 25mg , amlodipine 5mg, metoprolol succ 25mg) Hold Lisinopril 2nd to potassium HLD Continue home meds PVD US bilat lower ext Plavix 75mg po daily ASA EC 81mg po daily SCDs VRE/GI prophylaxis SCDs, Heparin/Protonix <Gladys King - Last Filed: 09/24/23 09:58> - Plan Pt seen and examined. I agree with the note by the WIND COMMISSIONING TECHNICIAN. Will continue cefepime for pneumonia and UTI. Continue home med for other chronic medical problems. <Marco Concepcion - Last Filed: 09/24/23 11:43>
[2023-09-24] MEDS: MEMANTINE HCL 10 MG TABLET PO SCH (11:44)
[2023-09-24] MEDS: FUROSEMIDE 20 MG/ 2ML VIAL IV SCH (11:45)
[2023-09-24] MEDS: LOSARTAN POTASSIUM 50 MG TABLET PO SCH (11:45)
[2023-09-24] MEDS: AMLODIPINE 5 MG TAB PO SCH (11:45)
[2023-09-24] MEDS: METOPROLOL XL 25 MG TAB PO SCH (11:45)
--- NOTE | 2023-09-24 13:15 | RAD REPORT ---
EXAM DESCRIPTION: US - Extrem Venous W Compress Arturo - 09/24/2023 5:28 am CLINICAL HISTORY: Swelling. COMPARISON: None. TECHNIQUE: Real-time sonographic evaluation of the bilateral lower extremity deep venous systems was performed. FINDINGS: Normal compressibility, flow augmentation, phasic flow and spontaneous flow is identified in both the left and right lower extremity deep venous systems. No intraluminal filling defects seen. small left Carter cyst in the popliteal fossa measuring up to 2.3 cm IMPRESSION: No DVT in either lower extremity.
--- NOTE | 2023-09-24 14:13 | EKG ---
Test Date: 2023-09-24 Test Time: 02:26:17 Lead Qa Analyst: DEBBI MEASUREMENT RESULTS: Intervals: Rate: 64 CA: 352 QRSD: 104 QT: 418 QTc: 431 [place]: P: 63 CA: 352 QRS: 26 T: 69 INTERPRETIVE STATEMENTS: Sinus rhythm with 1st degree AV block Cannot rule out Anterior infarct, age undetermined Abnormal ECG Compared to ECG 09/23/2023 12:40:00 Myocardial infarct finding now present Incomplete right bundle-branch block no longer present Electronically Signed On 09-24-23 14:10:42 CDT by Tapan Pozo
--- NOTE | 2023-09-24 14:17 | EKG ---
Test Date: 2023-09-23 Test Time: 12:40:00 Automation Manager: ROMEO MEASUREMENT RESULTS: Intervals: Rate: 80 IA: 322 QRSD: 94 QT: 366 QTc: 422 [place]: P: 59 IA: 322 QRS: 35 T: 87 INTERPRETIVE STATEMENTS: Sinus rhythm with 1st degree AV block Incomplete right bundle branch block Borderline ECG Compared to ECG 03/15/2023 18:39:07 Incomplete right bundle-branch block now present Electronically Signed On 09-24-23 14:12:52 CDT by Tapan Pozo
--- NOTE | 2023-09-24 19:16 | CON ---
Date of Consultation: 09/24/2023 Reason For Consultation: Atrial fibrillation and chest pain. History Of Present Illness: 82-year-old female, history of CHF, coronary artery disease, rheumatoid arthritis, peripheral neuropathy, nephrectomy, presented with chest pain, left-sided, no radiation, o n and off, not related to exertion. She rated it about 6/10, and goes away after about 20 to 30 gemini clovis. She denies having any shortness of breath and she has history of chronic AFib, but heart rate i s controlled. Past Medical History: Coronary artery disease, diabetes, hypertension, CHF, peripheral vascular dise ase, and atrial fibrillation. Medications: Refer to reconciliation sheet for detailed list. Allergies: IODINE, PROPOXYPHENE. Family History: No premature coronary artery disease. Social History: She does not smoke or drink. Does not use any drugs. Review of Systems: All systems were reviewed and they were negative except as mentioned in the HPI. Physical Examination: Vital Signs: Reviewed. Head and Neck: Pupils are equal, reactive to light. Intact eye movements. No JVD. No cervical lym phadenopathy. Neck is supple. Thyroid is not enlarged. Lungs: Clear to auscultation bilaterally. No rhonchi, wheezing, or crackles. No accessory muscle u se. Heart: Irregularly irregular. No extra sounds. Abdomen: Soft, nontender. Bowel sounds positive. No organomegaly. No masses or hernia. No rigidi ty or rebound. Extremities: No clubbing or cyanosis. Intact pulses. Skin: No rash. No nodule. Neurologic: Alert, awake, oriented x3. No acute focal deficits appreciated. Investigations: BUN 42, creatinine 1.99, and hemoglobin is 9.4. Assessment And Recommendations: 1.Chest pain. History of coronary artery disease and bypass surgery in the past. Obtain Lexiscan n uclear stress test and echo to further evaluate and trend her cardiac enzymes and continue baby aspir in. 2.Chronic renal failure. Creatinine is improving. Continue to monitor. 3.Hypertension. Blood pressure is controlled. Continue current management. 4.Dyslipidemia. Recommend Lipitor 40 mg q.h.s. 5.Atrial fibrillation, rate is controlled. Continue metoprolol, and recommend to start Eliquis 2.5 mg twice a day. 6.Coronary artery disease with chest pain. Obtain stress test and echo to further evaluate. I will follow the patient after above testing. SR/AUDRA Voice ID: [id number] Report ID: [id number]
--- NOTE | 2023-09-24 21:30 | P.CNS ---
Date of Consult: 09/24/23 Reason for Consult: ANDRZEJ/ CKD Requesting Physician: Marco Concepcion Chief Complaint: pneumonia, s/p nephrectomy, ANDRZEJ History of Present Illness: Pt is an 82 yo female with past medical history of Arthritis, Back pain, Htn, Neuropathy, CHF, CAD s/p [place], RA and Neuropathy, nephrectomy last week at [facility] due to renal cancer, who presents with chest pain. She describes the pain as indigestion. The substernal chest pain is non-radiating and intermittent in nature with severity of 6/10. PT had 2 episodes of chest pain this am and it was not associated with SOB and cough. On admission, lab studes show wbc 6.8, Hgb 9.4, k 5.7, Cr 2.23, glucose 196, Na 134. BNP 4314, CT abd/pelvis shows left upper and left lower lung pneumonia. At bedside, pt is in NAD. [id number] 12:56 This 82 yrs old Female presents to ER via EMS with complaints of chest pain. rn 12:56 The patient or guardian reports chest pain that is located primarily in the substernal rn area. Onset: this morning. The pain does not radiate. Associated signs and symptoms: Pertinent negatives: abdominal pain, cough, diaphoresis, headache, lower extremity swelling, palpitations, shortness of breath, syncope, vomiting. The chest pain is described as burning. Duration: The patient or guardian reports multiple episodes, that have now resolved. Severity of pain: At its worst the pain was mild in the emergency department the pain has resolved. The patient has not experienced similar symptoms in the past. Patient reports this morning had 2 episodes of chest pain, each lasted a few seconds, felt burning, no radiation, no association with shortness of breath or cough. Denies fever. Denies trauma. Of note patient did have a nephrectomy this past week at [facility] in [place] for cancer. Denies history of DVT or PE. Patient states felt like a heartburn type pain. Currently denies any pain. Allergies iodine Allergy (Verified 02/20/21 08:09) Itching/Hives/Rash propoxyphene napsylate [From Darvocet-N] Adverse Reaction (Intermediate, Verified 02/20/21 08:09) Nausea/Vomiting cauliflower Adverse Reaction (Verified 02/20/21 08:09) Nausea/Vomiting Home medications list reviewed: Yes Home Medications: Aspirin [Pura Chewable Aspirin] 81 mg PO DAILY 09/16/13 Clopidogrel Bisulfate [Plavix*] 75 mg PO DAILY #0 tablet 09/19/13 Atorvastatin Calcium 20 mg PO BEDTIME 10/12/19 Lisinopril [Zestril] 1 tab PO DAILY 10/12/19 Metoprolol Tartrate 25 mg PO BID 10/12/19 Pantoprazole [Protonix Tab*] 1 tab PO DAILY 10/12/19 Famotidine 20 mg PO BID 07/25/20 Hydrocodone 10/APAP 325 [[place] 10/325*] 1 tab PO Q4HR PRN 07/25/20 Cyanocobalamin/Cobamamide [Vitamin B-12 5,000 Mcg Tab Sl] 1 each SL DAILY #30 tab.subl 07/27/20 Nitrofurantoin Macrocrystal [Nitrofurantoin] 50 mg PO BID #28 capsule 07/27/20 Gabapentin [Neurontin*] 100 mg PO BEDTIME 02/20/21 Pentoxifylline 400 mg PO BIDAC 02/20/21 - Past Medical/Surgical History Diabetic: Yes -: HTN -: DM II -: CAD -: Diastolic CHF -: Severe PAD -: Arthritis -: Spider bites in legs -: 3-pinged nerves at the back/sciatic nerve -: Neuropathy -: Chronic back pain -: Right Nephrectomy 09-17-23 -: Cardiac Stents CABG -: Endoscopy -: Tubal Ligation -: Hysterectomy -: L knee repair -: galbladder removed -: hemorrhoidectomy -: clots in legs removed Psychosocial/ Personal History: Patient lives at home with grandchildren, is retired - Family History Brother Medical History: Heart disease, Hypertension, Diabetes Father Medical History: Heart disease, Hypertension, Lung disease, Liver disease Sister Medical History: Heart disease, Hypertension Mother Medical History: Heart disease, Hypertension - Social History Smoking Status: Unknown if ever smoked Alcohol use: No CD- Drugs: No Caffeine use: Yes Place of Residence: Home Review of Systems 10-point ROS is otherwise unremarkable General: Weakness Gastrointestinal: Abdominal Pain Physical Examination Temp Pulse Resp BP Pulse Ox 98.6 F 78 16 129/57 L 16 L 09/24/23 16:00 09/24/23 16:00 09/24/23 16:00 09/24/23 16:00 09/24/23 16:00 General: In no apparent distress, Oriented x3, Cooperative HEENT: Atraumatic Neck: Supple Respiratory: Expiratory wheezes Cardiovascular: No edema, Regular rate/rhythm Gastrointestinal: Soft and benign, Non-distended Musculoskeletal: No clubbing, No contractures Integumentary: No rashes, No cyanosis Neurological: Normal speech Blood work reviewed in the chart. Imagings Data: [id number] EXAM DESCRIPTION: RADChest Single View09/23/2023 1:04 pm CLINICAL HISTORY: CHEST PAIN COMPARISON: Chest Single View dated 03/15/2023; Chest Single View dated 02/02/2023; Chest Pa And Lat (2 Views) dated 03/12/2022; Chest Single View dated 02/19/2021 TECHNIQUE: Portable AP view of the chest. FINDINGS: The lungs are clear. No pneumothorax or effusion. The cardiomediastinal contours are unremarkable. Sequelae of median sternotomy and left atrial appendage occlusion device in place. Implantable rhythm monitoring device present. IMPRESSION: No acute cardiopulmonary process. [id number] EXAM DESCRIPTION: CT - Chest Abd Pelvis Wo Con - 09/23/2023 2:45 pm CLINICAL HISTORY: chest pain, recent nephrectomy COMPARISON: Thorax Wo Con dated 08/09/2021; THORAX WO CONTRAST dated 01/22/2007 TECHNIQUE: Thin axial CT images of the chest, abdomen, and pelvis, performed without IV contrast. Multiplanar reformats were generated and reviewed. All CT scans are performed using dose optimization technique as appropriate and may include automated exposure control or mA/KV adjustment according to patient size. FINDINGS: Varicose bronchiectatic changes with volume loss in the left lower lobe, stable. Areas of tree-in-bud opacification in the upper segment left lower lobe and peripheral left upper lobe may be slightly progressive since the prior exam, may represent a mild infectious/ inflammatory process.No pleural or pericardial effusion.No intrathoracic adenopathy. Left atrial appendage occlusion device. The liver, spleen, pancreas, adrenal glands and left kidney are within normal limits. Right kidney was surgically removed. Gallbladder was surgically removed. Small volume free air in the retroperitoneum, right lower pelvis, and in the right subdiaphragmatic space. This appears to be within expected limits for post nephrectomy status. No evidence of bowel obstruction, or fluid collections. Moderately abundant free air along the anterior abdominal wall. Heterogeneous mildly hyperdense foci along the right anterior abdominal wall muscles, without discrete fluid collections. Patient reportedly had anterior approach nephrectomy. No pathologic lymphadenopathy in the abdomen or pelvis. No worrisome osseous finding. IMPRESSION: Mild areas of tree-in-bud opacification in the lower aspects of the left upper lobe and upper segment of the left lower lobe, may represent a mild infectious/ inflammatory process. Stable areas of bronchiectasis in the basal left lower lobe, may represent sequelae of COPD or nontuberculous mycobacterial infection. Sequelae of right nephrectomy as above. Small areas of hyperdensity along the right anterior abdominal wall musculature, may represent small seromas. [id number] EXAM DESCRIPTION: US - Extrem Venous W Compress Arturo - 09/24/2023 5:28 am CLINICAL HISTORY: Swelling. COMPARISON: None. TECHNIQUE: Real-time sonographic evaluation of the bilateral lower extremity deep venous systems was performed. FINDINGS: Normal compressibility, flow augmentation, phasic flow and spontaneous flow is identified in both the left and right lower extremity deep venous systems. No intraluminal filling defects seen. small left Carter cyst in the popliteal fossa measuring up to 2.3 cm IMPRESSION: No DVT in either lower extremity. Conclusions/Impression: Stage I ANDRZEJ likely due to hypovolemia CKD III Right nephrectomy due to renal mass -No NSAIDs -Change IVF to 1/2NS Hyperkalemia -Lokelma as ordered -Low potassium diet HTN with CKD/ CHF -Continue Amlodipine and Losartan -Continue Metoprolol Diastolic CHF, chronic -Daily weight DM II with CKD -RISS prn Hypoalbuminemia -Consider Nepro Anemia in chronic illness -Monitor H&H -Retacrit prn Case reviewed with the hospitalist team Thank you kindly for the consultation
[2023-09-24] MEDS: NACHLORIDE 0.45% 1,000 ML IV SCH (21:56)
[2023-09-25 03:50] LABS: Absolute Basophils 0.1 K/uL (0-0.5); Absolute Eosinophils 0.5 K/uL (0-0.5); Absolute Lymphocytes (CBC) 1.5 K/uL (0.7-4.9); Absolute Monocytes 0.6 K/uL (0.1-1.3); Absolute Neutrophil 3.6 K/uL (1.8-8.0); Eosinophils % 7.7 % (0-4.4); Hematocrit 27.5 % (36.0-45.0); Hemoglobin 9.2 g/dL (12.0-15.0); Lymphocytes % 23.7 % (15.3-44.8); MCH 30.7 pg (27.0-35.0); MCHC 33.5 g/dL (32.0-36.0); MCV 91.6 fL (80-100); MPV 7.9 fL (7.6-11.3); Neutrophils % 57.6 % (41.7-73.7); Platelets 215 thou/uL (152-406); Red Cell Distribution Width 14.2 % (12.1-15.2)
[2023-09-25 04:08] LABS: ALT/SGPT 19 U/L (13-56); AST/SGOT 11 U/L (15-37); Albumin 2.8 g/dL (3.4-5.0); Albumin/Globulin Ratio 0.8 (1.1-1.8); Anion Gap 9.8 mEq/L (5.0-15.0); BUN Blood Urea Nitrogen 40 mg/dL (7-18); Bicarbonate 20 mEq/L (21-32); Bilirubin Total 0.4 mg/dL (0.2-1.0); Globulin 3.3 g/dL (2.3-3.5); Glomerular Filtration Rate 24 ml/min (=/>90); Glucose Level 116 mg/dL (74-106); Magnesium 2.3 mg/dL (1.6-2.4); Phosphorus 4.6 mg/dL (2.5-4.9); Potassium 4.8 mEq/L (3.5-5.1); Protein, Total 6.1 g/dL (6.4-8.2); Sodium Level 138 mEq/L (136-145)
[2023-09-25 04:09] LABS: Alkaline Phosphatase < 14 U/L (45-117)
--- NOTE | 2023-09-25 08:27 | P.PN ---
Subjective Date of Service: 09/25/23 <Marco Concepcion C - Last Filed: 09/25/23 10:31> Date of Service: 09/25/23 Chief Complaint: pneumonia, s/p nephrectomy, ANDRZEJ Subjective: No new changes <Gladys King - Last Filed: 09/25/23 15:26> Review of Systems 10-point ROS is otherwise unremarkable Respiratory: As per HPI Cardiovascular: As per HPI Neurological: As per HPI <Gladys King - Last Filed: 09/25/23 15:26> Physical Examination - Vital Signs Temperature: 97.8 F Blood Pressure: 143/62 Pulse: 69 Respirations: 18 Pulse Ox (%): 96 - Physical Exam General: Alert, In no apparent distress, Cooperative, Other (pallor) HEENT: Atraumatic, Normocephalic Neck: Supple Respiratory: Normal air movement Cardiovascular: Normal pulses, Irregular heart rate/rhythm Capillary refill: <2 Seconds Gastrointestinal: Soft and benign Musculoskeletal: No clubbing Integumentary: No rashes Neurological: Normal speech, Normal tone, Normal affect Lymphatics: No axilla or inguinal lymphadenopathy External genitalia: Deferred Rectal: Deferred <Gladys King - Last Filed: 09/25/23 15:26> Assessment And Plan - Plan Pt seen and examined. I agree with the note by the MEDICAL DEVICE ASSEMBLER. Pt complains of not feeling well and nausea. Will give prn zofran and continue iv abx for UTI and pneumonia. Continue home meds for other chronic medical problems. <Marco Concepcion - Last Filed: 09/25/23 10:31> - Plan Pneumonia/UTI Blood cultures Cefepime 1gm IV BID ANDRZEJ tele (EKG in ED with 1st degree block), Pt in rate controlled a. fib now Gentle hydration Monitor and trend electrolytes 09/23 potassium this am 5.2, Dr. Gould following 09/24 4.8 Dyspepsia Protonix Simethicone HTN/CP Continue home meds 09/23 (Losartan 25mg , amlodipine 5mg, metoprolol succ 25mg) Dr. Pozo following NM stress ordered for tomorrow am Pt with rate controlled irregular rhythm (NSR on admission), Eliquis 2.5mg po BID HLD Continue home meds PVD US bilat lower ext Plavix 75mg po daily ASA EC 81mg po daily SCDs VRE/GI prophylaxis SCDs, Heparin (stopped and Eliquis started)/Protonix <Gladys King - Last Filed: 09/25/23 15:26>
[2023-09-25] MEDS: APIXABAN 2.5 MG TABLET PO SCH (08:29)
[2023-09-25] MEDS: ONDANSETRON 4 MG/2 ML VIAL IV PRN (08:48)
[2023-09-25] MEDS ORDERED: APIXABAN 5 MG TABLET PO SCH (09:00)
[2023-09-25] MEDS ORDERED: AMLODIPINE 5 MG TAB PO SCH ×2 (09:00)
--- NOTE | 2023-09-25 14:01 | ECHO ---
HEIGHT: 5 ft 2 in WEIGHT: 134 lb 0 oz DATE OF STUDY: 09/25/[address]: Tapan Pozo 2-DIMENSIONAL: YES M.MODE: YES DOPPLER: YES COLOR FLOW: YES TDS: PORTABLE: YES DEFINITY: BUBBLE STUDY: DIAGNOSIS: CHEST PAIN CARDIAC HISTORY: CATHERIZATION: SURGERY: NO PROSTHETIC VALVE: NO PACEMAKER: NO MEASUREMENTS (cm) DIASTOLIC (NORMALS) SYSTOLIC (NORMALS) IVSd 1.0 (0.6-1.2) LA Diam 3.6 (1.9-4.0) LVEF 60-65% LVIDd 4.4 (3.5-5.7) LVIDs 2.7 (2.0-3.5) %FS 38% LVPWd 1.3 (0.6-1.2) Ao Diam 2.5 (2.0-3.7) 2 DIMENSIONAL ASSESSMENT: RIGHT ATRIUM: NORMAL LEFT ATRIUM: NORMAL RIGHT VENTRICLE: NORMAL LEFT VENTRICLE: MILD LEFT VENTRICULAR HYPERTROPHY TRICUSPID VALVE: MILD TRICUSPID REGURGITATION MITRAL VALVE: TRACE MITRAL REGURGITATION PULMONIC VALVE: TRACE PULMONIC INSUFFICIENCY AORTIC VALVE: NORMAL PERICARDIAL EFFUSION: NONE AORTIC ROOT: NORMAL LEFT VENTRICULAR WALL MOTION: NORMAL DOPPLER/COLOR FLOW: GRADE I DIASTOLIC DYSFUNCTION COMMENTS: 1. NORMAL LEFT VENTRICULAR SYSTOLIC FUNCTION, EJECTION FRACTION 60-65%, NORMAL WALL MOTION 2. GRADE I DIASTOLIC DYSFUNCTION 3. MILD TRICUSPID REGURGITATION 4. NORMAL FILLING PRESSURE (RIGHT ATRIUM 0-5 mmHg) TECHNOLOGIST: YESI CANALES
--- NOTE | 2023-09-25 18:03 | P.PN ---
Subjective Date of Service: 09/25/23 Chief Complaint: pneumonia, s/p nephrectomy, ANDRZEJ Subjective: No new changes, No C/O voiced, Tolerating diet, Ambulating, Improving Review of Systems 10-point ROS is otherwise unremarkable Physical Examination - Vital Signs Temperature: 98.7 F Blood Pressure: 149/67 Pulse: 81 Respirations: 16 Pulse Ox (%): 99 - Physical Exam General: Alert, In no apparent distress HEENT: Atraumatic, PERRLA, EOMI Neck: Supple, JVD not distended Respiratory: Clear to auscultation bilaterally, Normal air movement Cardiovascular: Regular rate/rhythm, Normal S1 S2 Gastrointestinal: Normal bowel sounds, No tenderness Musculoskeletal: No tenderness Integumentary: No rashes Neurological: Normal speech, Normal tone, Normal affect Lymphatics: No axilla or inguinal lymphadenopathy - Studies Medications List Reviewed: Yes Assessment And Plan - Current Problems (Diagnosis) (1) Atrial fibrillation Current Visit: Yes Status: Acute Plan: Continue Metoprolol and Eliquis. (2) Chest pain Onset Date: 03/08/17 Current Visit: No Status: Acute Plan: patient with history of CAD s/p CABG pending nuclear stress test, unable to obtain today due to busy schedule. continue ASA 81 mg daily (may stop if stress test is negative), continue Plavix 75 mg daily Qualifiers: (3) Congestive heart failure (CHF) Onset Date: 03/08/17 Current Visit: No Status: Acute Plan: looks euvolemic on exam, echo shows normal filling pressure with diastolic dysfunction. continue to monitor. Qualifiers: (4) PAD (peripheral artery disease) Current Visit: No Status: Acute Plan: patient will need outpatient KAVITA and possible peripheral angiogram.
--- NOTE | 2023-09-25 22:19 | P.PN ---
Date of Service: 09/25/23 Vital Signs Temp Pulse Resp BP Pulse Ox 99.4 F 85 16 145/71 H 99 09/25/23 20:00 09/25/23 21:04 09/25/23 20:02 09/25/23 21:04 09/25/23 20:02 Medications Acetaminophen (Acetaminophen 325 Mg Tablet) 650 mg PO Q4HP PRN PRN Reason: TEMP > 100' F Hydrocodone Bitart/Acetaminophen (Hydrocodone/Apap 10/325 Tab) 1 tab PO Q4H PRN PRN Reason: Pain scale 5-7 (Moderate) Last Admin: 09/25/23 20:02 Dose: 1 tab Amlodipine Besylate (Amlodipine 5 Mg Tab) 5 mg PO DAILY [facility] Last Admin: 09/25/23 08:25 Dose: 5 mg Apixaban (Apixaban 2.5 Mg Tablet) 2.5 mg PO BID [facility] Last Admin: 09/25/23 20:02 Dose: 2.5 mg Aspirin (Aspirin Ec 81 Mg Tab) 81 mg PO DAILY [facility] Last Admin: 09/25/23 08:23 Dose: 81 mg Atorvastatin Calcium (Atorvastatin 40 Mg Tab) 40 mg PO BEDTIME [facility] Last Admin: 09/25/23 20:02 Dose: 40 mg Clopidogrel Bisulfate (Clopidogrel 75 Mg Tablet) 75 mg PO DAILY [facility] Last Admin: 09/25/23 08:32 Dose: 75 mg Cefepime HCl 1 gm/ Sodium (Chloride) 100 mls @ 200 mls/hr IV Q12HR [facility]; Protocol Last Admin: 09/25/23 20:03 Dose: 100 mls Sodium Chloride (Sodium Chloride 0.45%) 1,000 mls @ 100 mls/hr IV .Q10H [facility] Last Admin: 09/25/23 08:32 Dose: 1,000 mls Losartan Potassium (Losartan Potassium 50 Mg Tablet) 25 mg PO DAILY [facility] Last Admin: 09/25/23 08:22 Dose: 25 mg Memantine (Memantine Hcl 10 Mg Tablet) 5 mg PO BID [facility] Last Admin: 09/25/23 20:02 Dose: 5 mg Metoprolol Succinate (Metoprolol Xl 25 Mg Tab) 25 mg PO [id number] [facility] Last Admin: 09/25/23 03:20 Dose: Not Given Morphine Sulfate (Morphine 4 Mg/Ml Syr) 2 mg IV Q4H PRN PRN Reason: Pain scale 8-10 (Severe) Last Admin: 09/23/23 23:54 Dose: 2 mg Ondansetron HCl (Ondansetron 4 Mg/2 Ml Vial) 4 mg IV Q4H PRN PRN Reason: NAUSEA / VOMITING Last Admin: 09/25/23 08:48 Dose: 4 mg Simethicone (Simethicone 125 Mg Tab) 250 mg PO Q6H PRN PRN Reason: GAS Assessment/ Plan: Nephrology No dyspnea No chest pain Abdominal tenderness No acute events overnight Vitals, medications, blood work and imaging reviewed in the chart General: In no apparent distress, Oriented x3, Cooperative HEENT: Atraumatic Neck: Supple Respiratory: Normal respiratory effort Cardiovascular: No edema, Regular rate/rhythm Gastrointestinal: Soft and benign, Non-distended Musculoskeletal: No clubbing, No contractures Integumentary: No rashes, No cyanosis Neurological: Normal speech Blood work reviewed in the chart. Imagings Data: [id number] EXAM DESCRIPTION: RADChest Single View09/23/2023 1:04 pm CLINICAL HISTORY: CHEST PAIN COMPARISON: Chest Single View dated 03/15/2023; Chest Single View dated 02/02/2023; Chest Pa And Lat (2 Views) dated 03/12/2022; Chest Single View dated 02/19/2021 TECHNIQUE: Portable AP view of the chest. FINDINGS: The lungs are clear. No pneumothorax or effusion. The cardiomediastinal contours are unremarkable. Sequelae of median sternotomy and left atrial appendage occlusion device in place. Implantable rhythm monitoring device present. IMPRESSION: No acute cardiopulmonary process. [id number] EXAM DESCRIPTION: CT - Chest Abd Pelvis Wo Con - 09/23/2023 2:45 pm CLINICAL HISTORY: chest pain, recent nephrectomy COMPARISON: Thorax Wo Con dated 08/09/2021; THORAX WO CONTRAST dated 01/22/2007 TECHNIQUE: Thin axial CT images of the chest, abdomen, and pelvis, performed without IV contrast. Multiplanar reformats were generated and reviewed. All CT scans are performed using dose optimization technique as appropriate and may include automated exposure control or mA/KV adjustment according to patient size. FINDINGS: Varicose bronchiectatic changes with volume loss in the left lower lobe, stable. Areas of tree-in-bud opacification in the upper segment left lower lobe and peripheral left upper lobe may be slightly progressive since the prior exam, may represent a mild infectious/ inflammatory process.No pleural or pericardial effusion.No intrathoracic adenopathy. Left atrial appendage occlusion device. The liver, spleen, pancreas, adrenal glands and left kidney are within normal limits. Right kidney was surgically removed. Gallbladder was surgically removed. Small volume free air in the retroperitoneum, right lower pelvis, and in the right subdiaphragmatic space. This appears to be within expected limits for post nephrectomy status. No evidence of bowel obstruction, or fluid collections. Moderately abundant free air along the anterior abdominal wall. Heterogeneous mildly hyperdense foci along the right anterior abdominal wall muscles, without discrete fluid collections. Patient reportedly had anterior approach nephrectomy. No pathologic lymphadenopathy in the abdomen or pelvis. No worrisome osseous finding. IMPRESSION: Mild areas of tree-in-bud opacification in the lower aspects of the left upper lobe and upper segment of the left lower lobe, may represent a mild infectious/ inflammatory process. Stable areas of bronchiectasis in the basal left lower lobe, may represent sequelae of COPD or nontuberculous mycobacterial infection. Sequelae of right nephrectomy as above. Small areas of hyperdensity along the right anterior abdominal wall musculature, may represent small seromas. EXAM DESCRIPTION: US - Extrem Venous W Compress Arturo - 09/24/2023 5:28 am CLINICAL HISTORY: Swelling. COMPARISON: None. TECHNIQUE: Real-time sonographic evaluation of the bilateral lower extremity deep venous systems was performed. FINDINGS: Normal compressibility, flow augmentation, phasic flow and spontaneous flow is identified in both the left and right lower extremity deep venous systems. No intraluminal filling defects seen. small left Carter cyst in the popliteal fossa measuring up to 2.3 cm IMPRESSION: No DVT in either lower extremity. Conclusions/Impression: Stage I ANDRZEJ likely due to hypovolemia CKD III Right nephrectomy due to renal mass -No NSAIDs -Continue IVF with 1/2NS Hyperkalemia -Lokelma prn -Low potassium diet HTN with CKD/ CHF -Continue Amlodipine and Losartan -Continue Metoprolol Diastolic CHF, chronic -Daily weight DM II with CKD -RISS prn Hypoalbuminemia -Consider Nepro Anemia in chronic illness -Monitor H&H -Retacrit prn Case reviewed with the hospitalist team
[2023-09-26 03:52] LABS: Absolute Eosinophils 0.3 K/uL (0-0.5); Absolute Monocytes 0.5 K/uL (0.1-1.3); Absolute Neutrophil 3.8 K/uL (1.8-8.0); Basophils % 0.8 % (0-1.3); Eosinophils % 4.7 % (0-4.4); Hemoglobin 9.1 g/dL (12.0-15.0); Lymphocytes % 17.8 % (15.3-44.8); MCH 30.7 pg (27.0-35.0); MCHC 33.6 g/dL (32.0-36.0); MCV 91.4 fL (80-100); MPV 7.7 fL (7.6-11.3); Monocytes % 8.8 % (3.3-12.3); Neutrophils % 67.9 % (41.7-73.7); Platelets 219 thou/uL (152-406); RBC Red Blood Cell Count 2.96 M/uL (3.86-4.86)
[2023-09-26 04:23] LABS: ALT/SGPT 19 U/L (13-56); AST/SGOT 13 U/L (15-37); Albumin 2.6 g/dL (3.4-5.0); Albumin/Globulin Ratio 0.7 (1.1-1.8); Anion Gap 9.6 mEq/L (5.0-15.0); BUN Blood Urea Nitrogen 33 mg/dL (7-18); Bicarbonate 21 mEq/L (21-32); Bilirubin Total 0.5 mg/dL (0.2-1.0); Globulin 3.5 g/dL (2.3-3.5); Glomerular Filtration Rate 28 ml/min (=/>90); Glucose Level 106 mg/dL (74-106); Phosphorus 3.8 mg/dL (2.5-4.9); Potassium 4.6 mEq/L (3.5-5.1); Protein, Total 6.1 g/dL (6.4-8.2); Sodium Level 137 mEq/L (136-145)
[2023-09-26 04:27] LABS: Alkaline Phosphatase < 14 U/L (45-117)
[2023-09-26] MEDS: LORazepam 2 MG/ML VIAL IV ONE (08:40)
[2023-09-26] MEDS: Meropenem 1,000 MG in NA CHLORIDE 0.9% 100 ML IV SCH (08:41)
[2023-09-26] MEDS ORDERED: Meropenem 1,000 MG in NA CHLORIDE 0.9% 100 ML IV SCH (09:00)
[2023-09-26] MEDS ORDERED: REGADENOSON 0.4 MG/5 ML SYR IV ONE (09:18)
--- NOTE | 2023-09-26 10:14 | TREADPHA ---
DX: CHEST PAIN Date of Study: 09/26/2023 Ht: 5' 2 " Wt: 134 lb 0 oz Consulting Physician: EFREN MEDICATIONS: TYLENOL, NORCO, NORVASC, ELIQUIS, ASPIRIN, LIPITOR, CEFEPIME, PLAVIX, COZAAR, NAMENDA, TOPROL XL, MORPHINE, ZOFRAN, PHAZYME HISTORY: 82 YEAR OLD FEMALE WITH COMPLAINTS OF CHEST PAIN. HISTORY OF HYPERTENSION, DIABETES MELLIUTS, TRIPLE BYPASS, HIGH CHOLESTEROL. PATIENT DOES NOT SMOKE, DRINK ALCOHOL OR CONSUME DRUGS. PHYSICIAL EXAMINATION: RESTING B.P.: 150/72 RESTING H.R.: 90 RESTING EKG: ATRIAL FIBRILLATION PROTOCOL: PHARMACOLOGIC EXERCISE TIME: 3:30 B.P. AT PEAK STRESS: 179/69 IMPRESSION: LEXISCAN INJECTED. CARDIOLITE INJECTED - SEE NUCLEAR MEDICINE REPORT. NO CHEST PAIN. NO VENTRICULAR TACHYCARDIA. NO SUPRAVENTRICULAR TACHYCARDIA. PREMATURE VENTRICULAR COMPLEXES NOTED WITH LEXISCAN.
--- NOTE | 2023-09-26 11:07 | P.PN ---
Subjective Date of Service: 09/26/23 Chief Complaint: pneumonia, s/p nephrectomy, ANDRZEJ Subjective: No new changes, No C/O voiced, Tolerating diet, Ambulating, Improving Review of Systems 10-point ROS is otherwise unremarkable Physical Examination - Vital Signs Temperature: 98.9 F Blood Pressure: 175/73 Pulse: 84 Respirations: 17 Pulse Ox (%): 98 - Physical Exam General: Alert, In no apparent distress HEENT: Atraumatic, PERRLA, EOMI Neck: Supple, JVD not distended Respiratory: Clear to auscultation bilaterally, Normal air movement Cardiovascular: Regular rate/rhythm, Normal S1 S2 Gastrointestinal: Normal bowel sounds, No tenderness Musculoskeletal: No tenderness Integumentary: No rashes Neurological: Normal speech, Normal tone, Normal affect Lymphatics: No axilla or inguinal lymphadenopathy - Studies Medications List Reviewed: Yes Assessment And Plan - Current Problems (Diagnosis) (1) Atrial fibrillation Current Visit: Yes Status: Acute Plan: Continue Metoprolol and Eliquis. (2) Chest pain Onset Date: 03/08/17 Current Visit: No Status: Acute Plan: patient with history of CAD s/p CABG pending nuclear stress test, if negative then no more cardiac work up needed. continue ASA 81 mg daily (may stop if stress test is negative), continue Plavix 75 mg daily Qualifiers: (3) Congestive heart failure (CHF) Onset Date: 03/08/17 Current Visit: No Status: Acute Plan: looks euvolemic on exam, echo shows normal filling pressure with diastolic dysfunction. continue to monitor. Qualifiers: (4) PAD (peripheral artery disease) Current Visit: No Status: Acute Plan: patient will need outpatient KAVITA and possible peripheral angiogram.
--- NOTE | 2023-09-26 11:30 | RAD REPORT ---
EXAM DESCRIPTION: NM - Rest Stress Cardiac Imaging - 09/26/2023 10:03 am CLINICAL HISTORY: CP COMPARISON: No comparisons TECHNIQUE: The patient was administered approximately 10.2 mCi of Tc 99m Sestamibi prior to resting SPECT imaging of the heart. The patient was then administered approximately 30.8 mCi of Tc 99m Sestam ibi following exercise or pharmacologic stress. Multiplanar SPECT images were reviewed. FINDINGS: No stress induced ischemic defect is seen to suggest stress induced ischemia. No fixed def ect is seen to suggest hibernating myocardium or scarred myocardium. Subtle attenuation of uptake heath ng the inferior wall on both phases, as well as some uptake attenuation at the septum and apex on the rest images, are favored to be artifactual. The end diastolic volume is 60 ml, the end systolic volume is 27 ml, and the ejection fraction is 56 %. IMPRESSION: No evidence of stress induced ischemia. Normal left ventricular ejection fraction, 56%.
--- NOTE | 2023-09-26 14:45 | P.PN ---
Subjective Date of Service: 09/26/23 Chief Complaint: pneumonia, s/p nephrectomy, ANDRZEJ Subjective: Other (anxious about stress test today) <Deborah Kingy Enrique - Last Filed: 09/26/23 14:38> Date of Service: 09/26/23 <Marco Concepcion Herman - Last Filed: 09/26/23 22:06> Review of Systems 10-point ROS is otherwise unremarkable General: As per HPI Cardiovascular: As per HPI Genitourinary: As per HPI Neurological: As per HPI <Deborah Kinggadiel Nunez - Last Filed: 09/26/23 14:38> Physical Examination - Vital Signs Temperature: 97.4 F Blood Pressure: 143/76 Pulse: 78 Respirations: 16 Pulse Ox (%): 98 - Physical Exam General: Alert, In no apparent distress, Cooperative, Other (anxious) HEENT: Atraumatic, Normocephalic Neck: 2+ carotid pulse no bruit Respiratory: Normal air movement Cardiovascular: Irregular heart rate/rhythm Capillary refill: <2 Seconds Gastrointestinal: Soft and benign Musculoskeletal: No swelling Integumentary: Other (pallor) Neurological: Normal speech, Normal tone, Normal affect, Abnormal strength Lymphatics: No axilla or inguinal lymphadenopathy External genitalia: Deferred Rectal: Deferred - Studies Medications List Reviewed: Yes <Deborah Kingy Enrique - Last Filed: 09/26/23 14:38> Assessment And Plan - Plan Pneumonia/UTI Blood cultures Cefepime 1gm IV BID Urine + E.Coli ESBL, will change abx to Merrem and order PICC line for retirement abx ANDRZEJ tele (EKG in ED with 1st degree block), Pt in rate controlled a. fib now Gentle hydration Monitor and trend electrolytes 09/23 potassium this am 5.2, creatinine 2.23 - Dr. Gould following 09/24 potassium 4.8, creatinine 2.03, GFR 24 09/25 potassium 4.6, creatinine 1.8, GFR 28 Dyspepsia Protonix Simethicone HTN/CP Continue home meds 09/23 (Losartan 25mg , amlodipine 5mg, metoprolol succ 25mg) Cardiology following NM stress performed today 09/25 Pt with rate controlled irregular rhythm (NSR on admission), Eliquis 2.5mg po BID HLD Continue home meds PVD US bilat lower ext - negative for DVT Plavix 75mg po daily ASA EC 81mg po daily SCDs Generalized weakness PT consult SW consult for HH for halfway, PT, and IV abx VRE/GI prophylaxis SCDs, Heparin (stopped and Eliquis started)/Protonix <Gladys King - Last Filed: 09/26/23 14:38> - Plan Pt seen and examined. I agree with the note by the SILK SPOTTER. NM stress is negative for stress induced ischemia. Continue IVF for ANDRZEJ <Marco Concepcion - Last Filed: 09/26/23 22:06>
--- NOTE | 2023-09-26 15:35 | RAD REPORT ---
EXAM DESCRIPTION: RAD - Chest Single View - 09/26/2023 3:26 pm CLINICAL HISTORY: PICC line placement COMPARISON: Chest Single View dated 09/23/2023; Chest Single View dated 03/15/2023; Chest Single View dated 02/02/2023; Chest Pa And Lat (2 Views) dated 03/12/2022 FINDINGS: Portable chest was obtained following placement of a right upper extremity PICC line. The catheter tip projects over the SVC.
[2023-09-26] MEDS: Mupirocin NASAL 2 APPL/1 GM TUBE NAS SCH (20:56)
--- NOTE | 2023-09-26 22:16 | P.PN ---
Date of Service: 09/26/23 Vital Signs Temp Pulse Resp BP Pulse Ox 98.4 F 78 16 142/81 H 97 09/26/23 20:00 09/26/23 20:00 09/26/23 21:55 09/26/23 20:00 09/26/23 21:55 Medications Acetaminophen (Acetaminophen 325 Mg Tablet) 650 mg PO Q4HP PRN PRN Reason: TEMP > 100' F Hydrocodone Bitart/Acetaminophen (Hydrocodone/Apap 10/325 Tab) 1 tab PO Q4H PRN PRN Reason: Pain scale 5-7 (Moderate) Last Admin: 09/26/23 21:55 Dose: 1 tab Amlodipine Besylate (Amlodipine 5 Mg Tab) 5 mg PO DAILY [facility] Last Admin: 09/26/23 09:56 Dose: 5 mg Apixaban (Apixaban 2.5 Mg Tablet) 2.5 mg PO BID [facility] Last Admin: 09/26/23 20:55 Dose: 2.5 mg Aspirin (Aspirin Ec 81 Mg Tab) 81 mg PO DAILY [facility] Last Admin: 09/26/23 09:00 Dose: 81 mg Atorvastatin Calcium (Atorvastatin 40 Mg Tab) 40 mg PO BEDTIME [facility] Last Admin: 09/26/23 20:56 Dose: 40 mg Clopidogrel Bisulfate (Clopidogrel 75 Mg Tablet) 75 mg PO DAILY [facility] Last Admin: 09/26/23 08:45 Dose: 75 mg Sodium Chloride (Sodium Chloride 0.45%) 1,000 mls @ 100 mls/hr IV .Q10H [facility] Last Admin: 09/26/23 02:00 Dose: 1,000 mls Meropenem 1,000 mg/ Sodium (Chloride) 100 mls @ 200 mls/hr IV Q12HR [facility] Last Admin: 09/26/23 20:56 Dose: 100 mls Losartan Potassium (Losartan Potassium 50 Mg Tablet) 25 mg PO DAILY [facility] Last Admin: 09/26/23 08:45 Dose: 25 mg Memantine (Memantine Hcl 10 Mg Tablet) 5 mg PO BID [facility] Last Admin: 09/26/23 20:56 Dose: 5 mg Metoprolol Succinate (Metoprolol Xl 25 Mg Tab) 25 mg PO [id number] [facility] Last Admin: 09/26/23 11:19 Dose: 25 mg Morphine Sulfate (Morphine 4 Mg/Ml Syr) 2 mg IV Q4H PRN PRN Reason: Pain scale 8-10 (Severe) Last Admin: 09/23/23 23:54 Dose: 2 mg Mupirocin (Mupirocin Nasal 2 Appl/1 Gm Tube) 1 appl NEGIN BID JAMES Stop: 10/01/23 09:01 Last Admin: 09/26/23 20:56 Dose: 1 appl Ondansetron HCl (Ondansetron 4 Mg/2 Ml Vial) 4 mg IV Q4H PRN PRN Reason: NAUSEA / VOMITING Last Admin: 09/26/23 05:39 Dose: 4 mg Simethicone (Simethicone 125 Mg Tab) 250 mg PO Q6H PRN PRN Reason: GAS Assessment/ Plan: Nephrology No dyspnea No chest pain No acute events overnight Vitals, medications, blood work and imaging reviewed in the chart General: In no apparent distress, Oriented x3, Cooperative HEENT: Atraumatic Neck: Supple Respiratory: Normal respiratory effort Cardiovascular: No edema, Regular rate/rhythm Gastrointestinal: Soft and benign, Non-distended Musculoskeletal: No clubbing, No contractures Integumentary: No rashes, No cyanosis Neurological: Normal speech Blood work reviewed in the chart. Imagings Data: [id number] EXAM DESCRIPTION: RADChest Single View09/23/2023 1:04 pm CLINICAL HISTORY: CHEST PAIN COMPARISON: Chest Single View dated 03/15/2023; Chest Single View dated 02/02/2023; Chest Pa And Lat (2 Views) dated 03/12/2022; Chest Single View dated 02/19/2021 TECHNIQUE: Portable AP view of the chest. FINDINGS: The lungs are clear. No pneumothorax or effusion. The cardiomediastinal contours are unremarkable. Sequelae of median sternotomy and left atrial appendage occlusion device in place. Implantable rhythm monitoring device present. IMPRESSION: No acute cardiopulmonary process. [id number] EXAM DESCRIPTION: CT - Chest Abd Pelvis Wo Con - 09/23/2023 2:45 pm CLINICAL HISTORY: chest pain, recent nephrectomy COMPARISON: Thorax Wo Con dated 08/09/2021; THORAX WO CONTRAST dated 01/22/2007 TECHNIQUE: Thin axial CT images of the chest, abdomen, and pelvis, performed without IV contrast. Multiplanar reformats were generated and reviewed. All CT scans are performed using dose optimization technique as appropriate and may include automated exposure control or mA/KV adjustment according to patient size. FINDINGS: Varicose bronchiectatic changes with volume loss in the left lower lobe, stable. Areas of tree-in-bud opacification in the upper segment left lower lobe and peripheral left upper lobe may be slightly progressive since the prior exam, may represent a mild infectious/ inflammatory process.No pleural or pericardial effusion.No intrathoracic adenopathy. Left atrial appendage occlusion device. The liver, spleen, pancreas, adrenal glands and left kidney are within normal limits. Right kidney was surgically removed. Gallbladder was surgically removed. Small volume free air in the retroperitoneum, right lower pelvis, and in the right subdiaphragmatic space. This appears to be within expected limits for post nephrectomy status. No evidence of bowel obstruction, or fluid collections. Moderately abundant free air along the anterior abdominal wall. Heterogeneous mildly hyperdense foci along the right anterior abdominal wall muscles, without discrete fluid collections. Patient reportedly had anterior approach nephrectomy. No pathologic lymphadenopathy in the abdomen or pelvis. No worrisome osseous finding. IMPRESSION: Mild areas of tree-in-bud opacification in the lower aspects of the left upper lobe and upper segment of the left lower lobe, may represent a mild i nfectious/ inflammatory process. Stable areas of bronchiectasis in the basal left lower lobe, may represent sequelae of COPD or nontuberculous mycobacterial infection. Sequelae of right nephrectomy as above. Small areas of hyperdensity along the right anterior abdominal wall musculature, may represent small seromas. EXAM DESCRIPTION: US - Extrem Venous W Compress Arturo - 09/24/2023 5:28 am CLINICAL HISTORY: Swelling. COMPARISON: None. TECHNIQUE: Real-time sonographic evaluation of the bilateral lower extremity deep venous systems was performed. FINDINGS: Normal compressibility, flow augmentation, phasic flow and spontaneous flow is identified in both the left and right lower extremity deep venous systems. No intraluminal filling defects seen. small left Carter cyst in the popliteal fossa measuring up to 2.3 cm IMPRESSION: No DVT in either lower extremity. Conclusions/Impression: Stage I ANDRZEJ likely due to hypovolemia CKD III Right nephrectomy due to renal mass -No NSAIDs -Continue IVF with 1/2NS Hyperkalemia -Lokelma prn -Low potassium diet HTN with CKD/ CHF -Continue Amlodipine and Losartan -Continue Metoprolol Diastolic CHF, chronic -Daily weight DM II with CKD -RISS prn Hypoalbuminemia -Consider Nepro Anemia in chronic illness -Monitor H&H -Retacrit prn Acute ESBL E.coli Cystitis -Continue Meropenem Case reviewed with the hospitalist team
[2023-09-27 09:25] LABS: Anion Gap 8.8 mEq/L (5.0-15.0); Potassium 4.8 mEq/L (3.5-5.1)
[2023-09-27] MEDS: NACHLORIDE 0.45% 1,000 ML IV SCH (10:17)
--- NOTE | 2023-09-27 11:34 | P.PN ---
Nephrology (S) Denies current cough, congestion or recurrent CP Vitals, medications, blood work and imaging reviewed in the chart General: In no apparent distress, Oriented x3, Cooperative HEENT: Atraumatic Neck: Supple Respiratory: Normal respiratory effort, no rales or rhonchi Cardiovascular: Regular rate/rhythm, cardiac murmur Gastrointestinal: Soft and benign, Non-distended Musculoskeletal: No sig edema Integumentary: No rashes, Neurological: Normal speech, awake, alert Blood work reviewed in the chart. Conclusions/Impression: Stage II ANDRZEJ, Cr level > 2 mg/dl on admission CKD III NOS underlying Solitary kidney state. Right nephrectomy due to renal mass -Cr level slowly downward trending, monitor closely Hyperkalemia -Resolved HTN with CKD/ CHF -Labile BP, IVF stopped early on. Lower dose ARB resumed by IM but recommend waiting until renal function recovers further, will titrate CCB Diastolic CHF, chronic -Monitor clinically Acute ESBL E.coli Cystitis -Continue Abx
--- NOTE | 2023-09-27 18:07 | P.PN ---
Subjective Date of Service: 09/27/23 Chief Complaint: pneumonia, s/p nephrectomy, ANDRZEJ Subjective: Improving Pt was sleeping when I went to evaluate her. She had a stressful day yesterday with hightened anxiety. <Gladys King - Last Filed: 09/27/23 18:02> Date of Service: 10/07/23 <Marco Concepcion - Last Filed: 10/07/23 21:20> Review of Systems 10-point ROS is otherwise unremarkable <Gladys King - Last Filed: 09/27/23 18:02> Physical Examination - Vital Signs Temperature: 99.7 F Blood Pressure: 137/65 Pulse: 82 Respirations: 17 Pulse Ox (%): 96 - Physical Exam General: In no apparent distress HEENT: Atraumatic, Normocephalic Neck: Supple Respiratory: Normal air movement Cardiovascular: No edema, Irregular heart rate/rhythm Capillary refill: <2 Seconds Gastrointestinal: Soft and benign Integumentary: No rashes Neurological: Normal tone Lymphatics: No axilla or inguinal lymphadenopathy External genitalia: Deferred Rectal: Deferred - Studies Medications List Reviewed: Yes <Gladys King - Last Filed: 09/27/23 18:02> Assessment And Plan - Plan Pneumonia/UTI Blood cultures Cefepime 1gm IV BID Urine + E.Coli ESBL, will change abx to Merrem and 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 fib now Gentle hydration Monitor and trend electrolytes 09/23 potassium this am 5.2, creatinine 2.23 - Dr. Gould following 09/24 potassium 4.8, creatinine 2.03, GFR 24 09/25 potassium 4.6, creatinine 1.8, GFR 28 09/26 potassium 4.8, creatinine 1.88, GFR 26 Dyspepsia Protonix Simethicone HTN/CP Continue home meds 09/23 (Losartan 25mg , amlodipine 5mg, metoprolol succ 25mg) Cardiology following NM stress performed today 09/25 - normal Pt with rate controlled irregular rhythm (NSR on admission), Eliquis 2.5mg po BID HLD Continue home meds PVD US bilat lower ext - negative for DVT Plavix 75mg po daily ASA EC 81mg po daily SCDs Generalized weakness PT consult SW consult for for snf, PT, and IV abx VRE/GI prophylaxis SCDs, Heparin (stopped and Eliquis started)/Protonix <Gladys King - Last Filed: 09/27/23 18:02> - Plan Pt seen and examined. I agree with the note by the NEONATAL CRITICAL CARE NURSE. Ccontinue abx for pna and UTI. Continue other home meds. <Marco Concepcion - Last Filed: 10/07/23 21:20>
[2023-09-27] MEDS: AMLODIPINE 5 MG TAB PO SCH (20:44)
[2023-09-28 01:34] VITALS: O2SAT 97
[2023-09-28 05:55] LABS: Absolute Basophils 0.1 K/uL (0-0.5); Absolute Eosinophils 0.5 K/uL (0-0.5); Absolute Lymphocytes (CBC) 1.3 K/uL (0.7-4.9); Absolute Monocytes 0.6 K/uL (0.1-1.3); Absolute Neutrophil 4.9 K/uL (1.8-8.0); Eosinophils % 6.5 % (0-4.4); Hematocrit 27.3 % (36.0-45.0); Hemoglobin 9.4 g/dL (12.0-15.0); Lymphocytes % 17.4 % (15.3-44.8); MCH 31.6 pg (27.0-35.0); MCHC 34.6 g/dL (32.0-36.0); MCV 91.2 fL (80-100); MPV 7.8 fL (7.6-11.3); Monocytes % 7.7 % (3.3-12.3); Neutrophils % 67.4 % (41.7-73.7); Platelets 233 thou/uL (152-406); RBC Red Blood Cell Count 2.99 M/uL (3.86-4.86); Red Cell Distribution Width 13.9 % (12.1-15.2)
[2023-09-28 06:15] LABS: ALT/SGPT 19 U/L (13-56); AST/SGOT 13 U/L (15-37); Albumin 2.6 g/dL (3.4-5.0); Albumin/Globulin Ratio 0.7 (1.1-1.8); Anion Gap 8.4 mEq/L (5.0-15.0); BUN Blood Urea Nitrogen 34 mg/dL (7-18); Bicarbonate 20 mEq/L (21-32); Bilirubin Total 0.4 mg/dL (0.2-1.0); Globulin 3.7 g/dL (2.3-3.5); Glomerular Filtration Rate 29 ml/min (=/>90); Glucose Level 105 mg/dL (74-106); Potassium 4.4 mEq/L (3.5-5.1); Protein, Total 6.3 g/dL (6.4-8.2); Sodium Level 135 mEq/L (136-145)
[2023-09-28 06:21] LABS: Alkaline Phosphatase < 14 U/L (45-117)
--- NOTE | 2023-09-28 06:40 | P.DS ---
Admission Date: 09/23/23 Discharge Date: 09/28/23 Reason for Admission: pneumonia, s/p nephrectomy, ANDRZEJ Consultations: Dr. Gould/Honorio Plaza Procedures: ECHO, NM stress test Brief History of Present Illness: Pt is an 82 yo female with past medical history of Arthritis, Back pain, Htn, Neuropathy, CHF, CAD s/p OR, RA and Neuropathy, nephrectomy last week at [facility] due to renal cancer, who presents with chest pain. She describes the pain as indigestion. The substernal chest pain is non-radiating and intermittent in nature with severity of 6/10. PT had 2 episodes of chest pain this am and it was not associated with SOB and cough. On admission, lab studes show wbc 6.8, Hgb 9.4, k 5.7, Cr 2.23, glucose 196, Na 134. BNP 4314, CT abd/pelvis shows left upper and left lower lung pneumonia. At bedside, pt is in NAD. Hospital Course: Ms. Ellis did well over the course of her hospitalization. She was found to have ESBL E. coli in her urine and has been receiving Merrem. Home health has been set up for continuation of Merrem via PICC line for Dr. Renee (PCP) to follow. She was seen by cardiology for chest pain. She was noted to have atrial fibrillation, an echo and stress test were performed showing - IMPRESSION: 1. NORMAL LEFT VENTRICULAR SYSTOLIC FUNCTION, EJECTION FRACTION 60-65%, NORMAL WALL MOTION 2. GRADE I DIASTOLIC DYSFUNCTION 3. MILD TRICUSPID REGURGITATION 4. NORMAL FILLING PRESSURE (RIGHT ATRIUM 0-5 mmHg) NM stress test IMPRESSION: No evidence of stress induced ischemia. Normal left ventricular ejection fraction, 56%. She is anxious to go home and all questions and discharge plans have been answered and discussed. Discharge medications: Metoprolol ER 25mg po daily Norvasc 5mg po daily Atorvastatin 40mg po q hs Eliquis 2.5mg po BID Plavix 75mg po daily for Merrem infusions Okay to DC IV and DC home Follow-up with primary care provider in 1 to 2 week F/u Cardiology in 1-2 weeks (KAVITA and possible peripheral angio) F/u Nephrology in 1-2 weeks (Solitary kidney with stage III kidney disease/hypertension, resolved stage II ANDRZEJ) Please call the inpatient unit for any questions or concerns regarding hospital stay Return to the ER for worsening symptoms <Gladys King Enrique - Last Filed: 09/28/23 06:34> Admission Date: 09/23/23 Discharge Date: 09/28/23 Hospital Course: Pt seen and examined. I agree with the note by the SUGARCANE RESEARCH TECHNICIAN. NM stress test is unremarkable. Will continue Continue iv merrem at home. Ok to discharge pt. <Marco Concepcion - Last Filed: 09/28/23 10:29> Disposition: DC HOME/HOME HEALTH CARE Discharge Condition: GOOD Vital Signs/Physical Exam: Temp Pulse Resp BP Pulse Ox 98.2 F 63 16 170/72 H 99 09/28/23 04:00 09/28/23 05:51 09/28/23 04:00 09/28/23 05:51 09/28/23 04:00 Laboratory Data at Discharge: WBC 7.30 thou/uL (4.3-10.9) 09/28/23 05:32 Hgb 9.4 g/dL (12.0-15.0) L 09/28/23 05:32 Hct 27.3 % (36.0-45.0) L 09/28/23 05:32 Plt Count 233 thou/uL (152-406) 09/28/23 05:32 PT 11.6 SECONDS (9.5-12.5) 09/24/23 05:38 INR 1.06 09/24/23 05:38 APTT 29.7 SECONDS (24.3-36.9) 09/24/23 05:38 Sodium 135 mEq/L (136-145) L 09/28/23 05:32 Potassium 4.4 mEq/L (3.5-5.1) 09/28/23 05:32 BUN 34 mg/dL (7-18) H 09/28/23 05:32 Creatinine 1.73 mg/dL (0.55-1.02) H 09/28/23 05:32 Glucose 105 mg/dL (74-106) 09/28/23 05:32 Phosphorus 3.8 mg/dL (2.5-4.9) 09/26/23 03:00 Magnesium 2.0 mg/dL (1.6-2.4) 09/26/23 03:00 Total Bilirubin 0.4 mg/dL (0.2-1.0) 09/28/23 05:32 AST 13 U/L (15-37) L 09/28/23 05:32 ALT 19 U/L (13-56) 09/28/23 05:32 Alkaline Phosphatase < 14 U/L (45-117) L 09/28/23 05:32 Triglycerides 95 mg/dL (<150) 09/24/23 05:38 Cholesterol 124 mg/dL (<200) 09/24/23 05:38 HDL Cholesterol 40 mg/dL (40-60) 09/24/23 05:38 Cholesterol/HDL Ratio 3.10 09/24/23 05:38 <King,Gladys Enrique - Last Filed: 09/28/23 06:34> Vital Signs/Physical Exam: Temp Pulse Resp BP Pulse Ox 97.6 F 113 H 20 153/74 H 96 09/28/23 08:00 09/28/23 08:24 09/28/23 08:00 09/28/23 08:24 09/28/23 08:00 Laboratory Data at Discharge: WBC 7.30 thou/uL (4.3-10.9) 09/28/23 05:32 Hgb 9.4 g/dL (12.0-15.0) L 09/28/23 05:32 Hct 27.3 % (36.0-45.0) L 09/28/23 05:32 Plt Count 233 thou/uL (152-406) 09/28/23 05:32 PT 11.6 SECONDS (9.5-12.5) 09/24/23 05:38 INR 1.06 09/24/23 05:38 APTT 29.7 SECONDS (24.3-36.9) 09/24/23 05:38 Sodium 135 mEq/L (136-145) L 09/28/23 05:32 Potassium 4.4 mEq/L (3.5-5.1) 09/28/23 05:32 BUN 34 mg/dL (7-18) H 09/28/23 05:32 Creatinine 1.73 mg/dL (0.55-1.02) H 09/28/23 05:32 Glucose 105 mg/dL (74-106) 09/28/23 05:32 Phosphorus 3.8 mg/dL (2.5-4.9) 09/26/23 03:00 Magnesium 2.0 mg/dL (1.6-2.4) 09/26/23 03:00 Total Bilirubin 0.4 mg/dL (0.2-1.0) 09/28/23 05:32 AST 13 U/L (15-37) L 09/28/23 05:32 ALT 19 U/L (13-56) 09/28/23 05:32 Alkaline Phosphatase < 14 U/L (45-117) L 09/28/23 05:32 Triglycerides 95 mg/dL (<150) 09/24/23 05:38 Cholesterol 124 mg/dL (<200) 09/24/23 05:38 HDL Cholesterol 40 mg/dL (40-60) 09/24/23 05:38 Cholesterol/HDL Ratio 3.10 09/24/23 05:38 <Marco Concepcion - Last Filed: 09/28/23 10:29> Diet: Renal Activity: Ad ildefonso <Gladys King - Last Filed: 09/28/23 06:34> <Marco Concepcion - Last Filed: 09/28/23 10:29> Home Medications: Clopidogrel Bisulfate [Plavix*] 75 mg PO DAILY #0 tablet 09/19/13 Famotidine 20 mg PO BID 07/25/20 Hydrocodone 10/APAP 325 [[place] 10/325*] 1 tab PO Q4HR PRN 07/25/20 Cyanocobalamin/Cobamamide [Vitamin B-12 5,000 Mcg Tab Sl] 1 each SL DAILY #30 tab.subl 07/27/20 Gabapentin [Neurontin*] 100 mg PO BEDTIME 02/20/21 Pentoxifylline 400 mg PO BIDAC 02/20/21 Amlodipine [Norvasc*] 5 mg PO BID #180 tab 09/28/23 Apixaban [Eliquis *] 2.5 mg PO BID #180 tab 09/28/23 Atorvastatin Calcium [Lipitor] 40 mg PO BEDTIME #90 tab 09/28/23 Clopidogrel Bisulfate [Plavix*] 75 mg PO DAILY #90 tab 09/28/23 Memantine HCl [Namenda*] 5 mg PO BID 09/28/23 Metoprolol Succinate [Toprol Xl*] 25 mg PO [id number] #90 tab 09/28/23 Mupirocin Calcium [Bactroban Nasal*] 1 appl NEGIN BID tube 09/28/23 New Medications: Apixaban [Eliquis *] 2.5 mg PO BID #180 tab Atorvastatin Calcium [Lipitor] 40 mg PO BEDTIME #90 tab Amlodipine [Norvasc*] 5 mg PO BID #180 tab Clopidogrel Bisulfate [Plavix*] 75 mg PO DAILY #90 tab Metoprolol Succinate [Toprol Xl*] 25 mg PO [id number] #90 tab Physician Discharge Instructions: Patient has been accepted for home health services by: [facility] [phone] fax [phone] [facility] [phone] (cell) IV abx have been set up with: [facility] [phone] fax [phone] [facility] [phone] (cell) *IV antibiotics will be delivered today, 09/26 before 9pm dose is due. Dr. Maicol Plaza is PCP. CM spoke with Carter at Dr. Maicol Plaza's office ([phone]) and confirmed Dr. Plaza with follow home health/IV abx. Ms. Ellis did well over the course of her hospitalization. She was found to have ESBL E. coli in her urine and has been receiving Merrem. Home health has been set up for continuation of Merrem via PICC line for Dr. Renee (PCP) to follow. She was seen by cardiology for chest pain. She was noted to have atrial fibrillation, an echo and stress test were performed showing - IMPRESSION: 1. NORMAL LEFT VENTRICULAR SYSTOLIC FUNCTION, EJECTION FRACTION 60-65%, NORMAL WALL MOTION 2. GRADE I DIASTOLIC DYSFUNCTION 3. MILD TRICUSPID REGURGITATION 4. NORMAL FILLING PRESSURE (RIGHT ATRIUM 0-5 mmHg) NM stress test IMPRESSION: No evidence of stress induced ischemia. Normal left ventricular ejection fraction, 56%. She is anxious to go home and all questions and discharge plans have been answered and discussed. Discharge medications: Metoprolol ER 25mg po daily Norvasc 5mg po daily Atorvastatin 40mg po q hs Eliquis 2.5mg po BID Plavix 75mg po daily for Merrem infusions Okay to DC IV and DC home Follow-up with primary care provider in 1 to 2 week F/u Cardiology in 1-2 weeks (KAVITA and possible peripheral angio) F/u Nephrology in 1-2 weeks (Solitary kidney with stage III kidney disease/hypertension, resolved stage II ANDRZEJ) Please call the inpatient unit for any questions or concerns regarding hospital stay Return to the ER for worsening symptoms Followup: Maicol Plaza MD [Primary Care Provider] - Lloyd Olmedo [ACTIVE - CAN ADMIT] - Tenzin Plaza MD [ACTIVE - CAN ADMIT] -
[2023-09-28] MEDS: AMLODIPINE 5 MG TAB PO SCH (08:24)
[2023-09-28 12:42] VITALS: BP 139/71; TEMP 97.9
--- NOTE | 2023-09-28 15:17 | PN ---
Date of Progress Note: 09/28/2023 Subjective: The patient was seen prior to be discharge. The patient feels okay. Denies any complai nts. Objective: Vital Signs: Reviewed and are stable. General: She appears in no acute distress. Lungs: Clear to auscultation. Heart: Revealed regular rate and rhythm. Abdomen: Soft and nontender. Extremities: Showed no evidence of edema. Laboratory Studies: Creatinine was stable at 1.3, BUN of 94, sodium was 135. CBC showing stable hem oglobin, hematocrit, and platelet count. Urine culture reports are showing ESBL E coli, which is sen sitive to gentamicin, tobramycin, Zosyn, and meropenem. Impression: 1.Acute renal failure in the setting of acute tubular necrosis secondary to ongoing urinary tract in fection, currently with improving renal function. 2.Extended spectrum beta-lactamase Escherichia coli urinary tract infection. The patient is current ly being discharged on meropenem. 3.History of nephrectomy. Currently with stable renal function. 4.Atrial fibrillation, rate controlled. 5.Chronic diastolic heart failure, compensated. Plan: Overall, patient's renal function is better. Will need outpatient followup. She is okay to b e discharged from Nephrology standpoint and we will need outpatient followup to monitor her renal function. VV/MODL Voice ID: [id number] Report ID: [id number]
== END 2023-09-28 13:28 | disposition home health service (06) | DRG 193 ==
LOC: ER 12:39 → ERHOLD 17:45 → 2ND 09-24 00:27
PROVIDERS: ADMIT Hospitalist; ATTEND Hospitalist
PROC: 02HV33Z Insertion of Infusion Device into Superior Vena Cava, Percutaneous Approach (ICD-10-PCS; principal; 2023-09-26)
DX: J18.9 Pneumonia, unspecified organism (principal); N17.0 Acute kidney failure with tubular necrosis; N30.00 Acute cystitis without hematuria; C64.9 Malignant neoplasm of unspecified kidney, except renal pelvis; I50.32 Chronic diastolic (congestive) heart failure; N17.9 Acute kidney failure, unspecified; E87.1 Hypo-osmolality and hyponatremia; I13.0 Hypertensive heart and chronic kidney disease with heart failure and stage 1 through stage 4 chronic kidney disease, or unspecified chronic kidney disease; Z16.12 Extended spectrum beta lactamase (ESBL) resistance; N18.30 Chronic kidney disease, stage 3 unspecified; E11.51 Type 2 diabetes mellitus with diabetic peripheral angiopathy without gangrene; E87.5 Hyperkalemia; E11.22 Type 2 diabetes mellitus with diabetic chronic kidney disease; E86.0 Dehydration; G62.9 Polyneuropathy, unspecified; M06.9 Rheumatoid arthritis, unspecified; I25.2 Old myocardial infarction; I25.10 Atherosclerotic heart disease of native coronary artery without angina pectoris; R10.13 Epigastric pain; Z88.5 Allergy status to narcotic agent; Z95.1 Presence of aortocoronary bypass graft; Z95.5 Presence of coronary angioplasty implant and graft; Z88.8 Allergy status to other drugs, medicaments and biological substances; Z98.51 Tubal ligation status; Z79.82 Long term (current) use of aspirin; Z79.02 Long term (current) use of antithrombotics/antiplatelets; Z91.012 Allergy to eggs; Z79.899 Other long term (current) drug therapy; Z91.048 Other nonmedicinal substance allergy status; Z90.710 Acquired absence of both cervix and uterus; E88.09 Other disorders of plasma-protein metabolism, not elsewhere classified; D63.1 Anemia in chronic kidney disease; I48.91 Unspecified atrial fibrillation; E11.42 Type 2 diabetes mellitus with diabetic polyneuropathy; Z90.5 Acquired absence of kidney; B96.20 Unspecified Escherichia coli [E. coli] as the cause of diseases classified elsewhere
CPT/HCPCS: 36415; 36569; 71045; 71250; 74176; 78452; 80048; 80053; 80061; 81001; 82550; 82947; 83735; 83880; 84100; 84484; 85025; 85610; 85730; 86850; 86900; 86901; 87040; 87077; 87086; 87088; 87186; 93005; 93017; 93306; 93970; 94640; 96361; 96365; 96366; 96368; 97116; 97161; 97530; 99285; A9500; J0612; J0692; J0696; J1644; J1940; J2185; J2270; J2405; J2785; J7030; J7040; J7050; J7613

== ENCOUNTER 2024-02-05 16:57 | Emergency (ER) | payer OTHER ==
--- NOTE | 2024-02-05 18:17 | RAD REPORT ---
EXAMINATION: ONE VIEW CHEST XR CLINICAL INDICATION: PAIN TECHNIQUE: Frontal chest projection is submitted. Examination is limited by patient positioning and t echnique. COMPARISON: 12/29/2023 FINDINGS: The lungs are diffusely emphysematous but grossly clear. The heart is moderately enlarged in size. No displaced fractures identified. IMPRESSION: COPD without an acute process suspected.
[2024-02-05 18:47] LABS: Absolute Basophils 0.1 K/uL (0-0.5); Absolute Eosinophils 0.2 K/uL (0-0.5); Absolute Lymphocytes (CBC) 0.9 K/uL (0.7-4.9); Absolute Monocytes 0.4 K/uL (0.1-1.3); Absolute Neutrophil 3.7 K/uL (1.8-8.0); Basophils % 1.6 % (0-1.3); Eosinophils % 3.1 % (0-4.4); Hematocrit 30.6 % (36.0-45.0); Hemoglobin 10.5 g/dL (12.0-15.0); Lymphocytes % 16.6 % (15.3-44.8); MCH 30.6 pg (27.0-35.0); MCHC 34.2 g/dL (32.0-36.0); MCV 89.5 fL (80-100); MPV 7.5 fL (7.6-11.3); Monocytes % 7.2 % (3.3-12.3); Neutrophils % 71.5 % (41.7-73.7); Nucleated Red Blood Cells % 0.1 % (0-0); Platelets 203 thou/uL (152-406); RBC Red Blood Cell Count 3.42 M/uL (3.86-4.86); Red Cell Distribution Width 13.3 % (12.1-15.2)
[2024-02-05 19:20] LABS: AST/SGOT 11 U/L (15-37); Albumin 3.4 g/dL (3.4-5.0); Albumin/Globulin Ratio 0.8 (1.1-1.8); Anion Gap 9.6 mEq/L (5.0-15.0); BUN Blood Urea Nitrogen 37 mg/dL (7-18); Bicarbonate 24 mEq/L (21-32); Bilirubin Total 0.3 mg/dL (0.2-1.0); Globulin 4.1 g/dL (2.3-3.5); Glomerular Filtration Rate 22 ml/min (=/>90); Glucose Level 165 mg/dL (74-106); Lipase 15 U/L (13-75); Magnesium 2.3 mg/dL (1.6-2.4); NT PRO-BNP 5473 pg/mL (<450); Potassium 4.6 mEq/L (3.5-5.1); Protein, Total 7.5 g/dL (6.4-8.2); Sodium Level 130 mEq/L (136-145); Troponin High Sensitivity 18.9 pg/mL (<58.9)
[2024-02-05 19:26] LABS: ALT/SGPT < 14 U/L (13-56)
[2024-02-05 19:27] LABS: Alkaline Phosphatase < 14 U/L (45-117); Bilirubin Direct < 0.2 mg/dL (0-0.2); Bilirubin Indirect, Calculated 0.1 mg/dL (0.2-0.8)
--- NOTE | 2024-02-05 20:44 | EDPHYS ---
Physician Documentation [facility] Name: Yeison Ellis Age: 83 yrs Sex: Female : 1940 Arrival Date: 02/05/2024 Time: 16:57 Bed 18 Private MD: ED Physician Marbin Dominguez HPI: 02/04 20:42 This 83 yrs old Female presents to ER via EMS with complaints of Blood Pressure Problem.kb 20:42 Pt is an 83 year old female who presents for nausea and high blood pressure that kb started 2-3 days ago. Pt states she vomited once yesterday. Family states pt has been complaining of nausea for a month. States she has been seen by several drs for this and plans to see GI next. Denies chest pain or shortness of breath. Historical: - Allergies: 17:00 Darvocet-N 100; bp 17:00 EGG/POULTRY; bp 17:00 Iodine; bp 17:00 Kziyjyt-Khx-Vnr Reductase Inhibitor; bp - PMHx: 17:00 Arthritis; Back pain; Chronic pain; Hypertension; Kidney stones; Myocardial infarction; bp neuropathy; Rheumatoid Arthritis; - PSHx: 17:00 Stented artery; bp - Immunization history:: Adult Immunizations up to date. - Infectious Disease History:: Denies. - Social history:: Smoking status: Patient denies any tobacco usage or history of. ROS: 20:40 Constitutional: As per HPI kb Exam: 20:40 Constitutional: This is a well developed, well nourished patient who is awake, alert, kb and in no acute distress. Head/Face: Normocephalic, atraumatic. ENT: Moist Mucous membranes Cardiovascular: Regular rate Respiratory: Respirations even and unlabored. No increased work of breathing. Talking in full sentences Abdomen/GI: Soft, non-tender. No distention Back: No spinal tenderness. No costovertebral tenderness. Full range of motion. Skin: Warm, dry with normal turgor. Normal color. MS/ Extremity: Pulses equal, no cyanosis. Neurovascular intact. Full, normal range of motion. Neuro: Awake and alert, GCS 15, oriented to person, place, time, and situation. 22:53 ECG was reviewed by the Attending Physician. kb Vital Signs: 17:00 BP 146 / 58; Pulse 69; Resp 16; Temp 98; Pulse Ox 100% ; bp 19:00 BP 162 / 53; Pulse 64; Resp 18; Pulse Ox 99% ; bp 20:17 BP 168 / 52; Pulse 65; Resp 18; Pulse Ox 97% ; cp4 21:26 BP 161 / 47; Pulse 64; Resp 18; Pulse Ox 99% ; cp4 MDM: 17:43 Medical Screening Exam initiated kb 20:40 Differential diagnosis: acute mi, arrhythmia, dehydration, hypertension. Data reviewed: kb vital signs, nurses notes. Historians other than the Patient: EMS: [facility]. Counseling: I had a detailed discussion with the patient and/or guardian regarding the historical points, exam findings, and any diagnostic results supporting the discharge/admit diagnosis, lab results, radiology results, the need for outpatient follow up, a family practitioner, to return to the emergency department if symptoms worsen or persist or if there are any questions or concerns that arise at home. ED course: Discussed results with pt and family. All in agreement with outpatient follow up. Pt is ready to go home. Educated to keep blood pressure log and follow up with PCP . 02/04 17:47 Order name: Basic Metabolic Panel; Complete Time: 19:39 kb 02/04 17:47 Order name: CBC with Diff; Complete Time: 18:57 kb 02/04 17:47 Order name: LFT's; Complete Time: 19:39 kb 02/04 17:47 Order name: Magnesium; Complete Time: 19:39 kb 02/04 17:47 Order name: NT PRO-BNP; Complete Time: 19:39 kb 02/04 17:47 Order name: Troponin HS; Complete Time: 19:39 kb 02/04 17:47 Order name: Lipase; Complete Time: 19:39 kb 02/04 17:47 Order name: XRAY Chest (1 view); Complete Time: 18:21 kb 02/04 17:47 Order name: Cardiac monitoring; Complete Time: 17:53 kb 02/04 17:47 Order name: EKG - Nurse/Tech; Complete Time: 18:36 kb 02/04 17:47 Order name: IV Saline Lock; Complete Time: 18:36 kb 02/04 17:47 Order name: Labs collected and sent; Complete Time: 18:36 kb 02/04 17:47 Order name: O2 Per Protocol; Complete Time: 17:53 kb 02/04 17:47 Order name: O2 Sat Monitoring; Complete Time: 17:54 kb EC:53 Rate is 64 beats/min. Rhythm is regular. QRS [place] is Normal. [place] interval is prolonged kb at 322 msec. QRS interval is normal at 110 msec. QT interval is normal at 466 msec. Administered Medications: 21:01 Drug: Ondansetron IVP 4 mg IVP once; over 2 minutes Route: IVP; Site: right antecubital;cp4 21:28 Follow up: Response: No adverse reaction cp4 Disposition: 02/05 07:44 Co-signature as Attending Physician, Marbin Dominguez MD I reviewed the patient's care rn provided by the Advanced Practice Provider and agree with the diagnosis and treatment plan. Disposition Summary: 02/05/24 20:43 Discharge Ordered Notes: Location: Home kb Condition: Stable kb Diagnosis - Essential (primary) hypertension kb Followup: kb - With: Emergency Department - When: As needed - Reason: Worsening of condition Followup: kb - With: Private Physician - When: 2 - 3 days - Reason: Recheck today's complaints, Continuance of care, Re-evaluation by your physician Discharge Instructions: - Discharge Summary Sheet kb - Hypertension, Adult, Ngkb-zk-Iaem kb - How to Take Your Blood Pressure, Vexq-ih-Tmba kb - Managing Your Hypertension kb Forms: - Medication Reconciliation Form kb - Antibiotic Education kb - Prescription Opioid Use kb - Patient Portal Instructions kb - Leadership Thank You Letter kb Signatures: Dispatcher [employer] EDMS Cally Ramírez, CERTIFIED NUTRITIONIST-C CERTIFIED NUTRITIONIST-Ckb Marbin Dominguez MD MD rn Peltier, Brian, RN RN bp Potter, Christina cp4 Corrections: (The following items were deleted from the chart) 02/04 17:47 17:47 BASIC METABOLIC PANEL+C.LAB.BRZ ordered. EDMS EDMS 17:47 17:47 CBC+H.LAB.BRZ ordered. EDMS EDMS 17:47 17:47 HEPATIC FUNCTION+C.LAB.BRZ ordered. EDMS EDMS 17:47 17:47 MAGNESIUM+C.LAB.BRZ ordered. EDMS EDMS 17:47 17:47 PROBNP+C.LAB.BRZ ordered. EDMS EDMS 17:47 17:47 Troponin High Sensitivity+C.LAB.BRZ ordered. EDMS EDMS 17:48 17:48 Chest Single View+RAD.RAD.BRZ ordered. EDMS EDMS 17:48 17:48 LIPASE+C.LAB.BRZ ordered. EDMS EDMS
--- NOTE | 2024-02-05 20:44 | ER ---
Nurse's Notes [facility] Name: Yeison Ellis Age: 83 yrs Sex: Female : 1940 Arrival Date: 02/05/2024 Time: 16:57 Bed 18 Private MD: Diagnosis: Essential (primary) hypertension Presentation: 02/04 17:00 Chief complaint: EMS states: NAUSEA x1 MONTH. Coronavirus screen: At this time, the bp client does not indicate any symptoms associated with coronavirus-19. Ebola Screen: No symptoms or risks identified at this time. Initial Sepsis Screen: Does the patient meet any 2 criteria? No. Patient's initial sepsis screen is negative. Does the patient have a suspected source of infection? No. Patient's initial sepsis screen is negative. Risk Assessment: Do you want to hurt yourself or someone else? Patient reports no desire to harm self or others. Onset of symptoms is unknown. 17:00 Method Of Arrival: EMS: [facility] bp 17:00 Acuity: ALEXIS 3 bp Triage Assessment: 17:00 General: Appears in no apparent distress. Behavior is calm, cooperative, appropriate bp for age. Pain: Denies pain. EENT: No deficits noted. Neuro: Level of Consciousness is awake, alert, obeys commands, Oriented to Appropriate for age. Cardiovascular: Rhythm is sinus rhythm. Respiratory: No deficits noted. GI: Reports nausea. : No signs and/or symptoms were reported regarding the genitourinary system. Derm: No deficits noted. Musculoskeletal: No deficits noted. Historical: - Allergies: 17:00 Darvocet-N 100; bp 17:00 EGG/POULTRY; bp 17:00 Iodine; bp 17:00 Asztfuo-Sqa-Xuq Reductase Inhibitor; bp - PMHx: 17:00 Arthritis; Back pain; Chronic pain; Hypertension; Kidney stones; Myocardial infarction; bp neuropathy; Rheumatoid Arthritis; - PSHx: 17:00 Stented artery; bp - Immunization history:: Adult Immunizations up to date. - Infectious Disease History:: Denies. - Social history:: Smoking status: Patient denies any tobacco usage or history of. Screenin:02 [facility] ED Fall Risk Assessment (Adult) History of falling in the last 3 months, bp including since admission No falls in past 3 months (0 pts) Confusion or Disorientation No (0 pts) Intoxicated or Sedated No (0 pts) Impaired Gait No (0 pts) Mobility Assist Device Used No (0 pt) Altered Elimination No (0 pt) Score/Fall Risk Level 0 - 2 = Low Risk. Abuse screen: Denies threats or abuse. Denies injuries from another. Nutritional screening: No deficits noted. Tuberculosis screening: No symptoms or risk factors identified. Assessment: 20:00 General: Appears uncomfortable, Behavior is calm, cooperative, appropriate for age. cp4 Pain: Denies pain. Neuro: Level of Consciousness is awake, alert, obeys commands, Oriented to person, place, time, situation. Cardiovascular: Patient's skin is warm and dry. Respiratory: Airway is patent Respiratory effort is even, unlabored. GI: Reports nausea. : No signs and/or symptoms were reported regarding the genitourinary system. EENT: No signs and/or symptoms were reported regarding the EENT system. Derm: No signs and/or symptoms reported regarding the dermatologic system. Musculoskeletal: No signs and/or symptoms reported regarding the musculoskeletal system. 21:00 Reassessment: Patient appears in no apparent distress at this time. Patient and/or cp4 family updated on plan of care and expected duration. Pain level reassessed. Patient is alert, oriented x 3, equal unlabored respirations, skin warm/dry/pink. Vital Signs: 17:00 BP 146 / 58; Pulse 69; Resp 16; Temp 98; Pulse Ox 100% ; bp 19:00 BP 162 / 53; Pulse 64; Resp 18; Pulse Ox 99% ; bp 20:17 BP 168 / 52; Pulse 65; Resp 18; Pulse Ox 97% ; cp4 21:26 BP 161 / 47; Pulse 64; Resp 18; Pulse Ox 99% ; cp4 ED Course: 16:59 Patient arrived in ED. bp 17:00 Arm band placed on. bp 17:02 Triage completed. bp 17:02 Patient has correct armband on for positive identification. bp 17:03 Daniel Pineda, PIEDAD is Primary Nurse. bp 17:43 Cally Ramírez FNP-C is PHCP. kb 17:43 Marbin Dominguez MD is Attending Physician. kb 18:12 XRAY Chest (1 view) In Process Unspecified. EDMS 18:36 Initial lab(s) drawn, by me, sent to lab. EKG done, by ED staff, reviewed by Cally OROZCO. Inserted saline lock: 20 gauge in right antecubital area, using aseptic technique. Blood collected. Flushed with 10 mL NS. 20:00 No provider procedures requiring assistance completed. cp4 20:06 Primary Nurse role handed off by Daniel Pineda, RN cp4 20:06 Shobha Reeder is Primary Nurse. cp4 21:32 Provided Education on: high blood pressure. cp4 21:32 intact, bleeding controlled, No redness/swelling at site. Pressure dressing applied. cp4 Administered Medications: 21:01 Drug: Ondansetron IVP 4 mg IVP once; over 2 minutes Route: IVP; Site: right antecubital;cp4 21:28 Follow up: Response: No adverse reaction cp4 Medication: 20:00 VIS not applicable for this client. cp4 Outcome: 20:43 Discharge ordered by MD. kb 21:32 Discharged to home via wheelchair, cp4 21:32 Condition: stable 21:32 Discharge instructions given to patient, Instructed on discharge instructions, follow up and referral plans. Demonstrated understanding of instructions, follow-up care, 21:33 Patient left the ED. cp4 Signatures: Dispatcher [employer] EDMS Cally Ramírez FNP-C FNP-Ckb Daniel Pineda RN RN bp Potter, Christina cp4
[2024-02-05] MEDS ORDERED: ONDANSETRON 4 MG/2 ML VIAL ONE (20:45)
[2024-02-05 21:55] VITALS: TEMP 98
[2024-02-05 22:12] VITALS: BP 161/47; O2SAT 99
--- NOTE | 2024-02-06 11:07 | EKG ---
Test Date: 2024-02-05 Test Time: 18:34:03 Analysis Engineer: BP MEASUREMENT RESULTS: Intervals: Rate: 64 KS: 322 QRSD: 110 QT: 452 QTc: 466 [place]: P: 86 KS: 322 QRS: 91 T: 96 INTERPRETIVE STATEMENTS: Sinus rhythm with 1st degree AV block with premature supraventricular complexes Rightward axis Anterior infarct, age undetermined Abnormal ECG Compared to ECG 12/29/2023 08:45:50 Atrial premature complex(es) now present Right-axis deviation now present Myocardial infarct finding now present Sinus arrhythmia no longer present Electronically Signed On 02-06-24 11:06:50 CDT by Tenzin Plaza
== END 2024-02-05 21:33 | disposition home or self-care (01) ==
LOC: ER 16:57
DX: I10 Essential (primary) hypertension (principal); R11.0 Nausea; Z87.442 Personal history of urinary calculi; I25.2 Old myocardial infarction
CPT/HCPCS: 85025; 80048; 36415; 83735; 80076; 84484; 83690; 83880; 71045; J2405; 93005; 96374; 99284

== ENCOUNTER 2024-03-05 13:48 | Emergency (ER) | payer OTHER ==
[2024-03-05] MEDS ORDERED: ONDANSETRON 4 MG/2 ML VIAL ONE (13:56)
[2024-03-05 14:24] LABS: AST/SGOT 14 U/L (15-37); Albumin 3.9 g/dL (3.4-5.0); Anion Gap 14.5 mEq/L (5.0-15.0); BUN Blood Urea Nitrogen 41 mg/dL (7-18); Bicarbonate 24 mEq/L (21-32); Bilirubin Total 0.5 mg/dL (0.2-1.0); Globulin 3.8 g/dL (2.3-3.5); Glomerular Filtration Rate 23 ml/min (=/>90); Glucose Level 151 mg/dL (74-106); Lipase 18 U/L (13-75); Potassium 4.5 mEq/L (3.5-5.1); Protein, Total 7.7 g/dL (6.4-8.2); Sodium Level 131 mEq/L (136-145); Troponin High Sensitivity 22.2 pg/mL (<58.9)
[2024-03-05 14:27] LABS: ALT/SGPT < 14 U/L (13-56); Alkaline Phosphatase < 14 U/L (45-117)
[2024-03-05 14:30] LABS: Absolute Basophils 0.1 K/uL (0-0.5); Absolute Eosinophils 0.2 K/uL (0-0.5); Absolute Lymphocytes (CBC) 1.1 K/uL (0.7-4.9); Absolute Monocytes 0.5 K/uL (0.1-1.3); Absolute Neutrophil 3.7 K/uL (1.8-8.0); Basophils % 1.3 % (0-1.3); Eosinophils % 3.2 % (0-4.4); Hematocrit 32.2 % (36.0-45.0); Hemoglobin 10.9 g/dL (12.0-15.0); Lymphocytes % 19.9 % (15.3-44.8); MCH 30.2 pg (27.0-35.0); MPV 7.8 fL (7.6-11.3); Monocytes % 8.4 % (3.3-12.3); Neutrophils % 67.2 % (41.7-73.7); Nucleated Red Blood Cells % 0.3 % (0-0); Platelets 190 thou/uL (152-406); RBC Red Blood Cell Count 3.61 M/uL (3.86-4.86); Red Cell Distribution Width 13.7 % (12.1-15.2)
[2024-03-05] MEDS ORDERED: NA CHLORIDE 0.9% 1,000 ML ONE (14:33)
[2024-03-05 14:51] LABS: Specific Gravity 1.011 (1.005-1.030); Sqamous Epithelial <5 /HPF (None Seen); Urine Bacteria None Seen /HPF (<20); Urine Bilirubin NEGATIVE (Negative); Urine Blood Negative (Negative); Urine Clarity Clear (Clear); Urine Color Light-Yellow (Yellow); Urine Culture Reflex Order NOT NEEDED; Urine Glucose TRACE (Negative); Urine Ketones TRACE (Negative); Urine Microscopic Reflex YN ORDER UMIC; Urine Nitrite NEGATIVE (Negative); Urine Protein TRACE (Negative); Urine RBC <5 /HPF (None Seen); Urine Urobilinogen Normal (Normal); Urine WBC <5 /HPF (<5)
--- NOTE | 2024-03-05 14:58 | ER ---
Nurse's Notes [facility] Name: Yeison Ellis Age: 83 yrs Sex: Female : 1940 Arrival Date: 03/05/2024 Time: 13:46 Bed 8 Private MD: Diagnosis: Nausea Presentation: 03/05 13:47 Chief complaint: EMS states: nausea and not feeling well, burning with urination, aa5 burning to face and chest. 13:47 Coronavirus screen: At this time, the client does not indicate any symptoms associated aa5 with coronavirus-19. Ebola Screen: Patient denies travel to an Ebola-affected area in the 21 days before illness onset. Initial Sepsis Screen: Does the patient meet any 2 criteria? No. Patient's initial sepsis screen is negative. Does the patient have a suspected source of infection? No. Patient's initial sepsis screen is negative. Risk Assessment: Do you want to hurt yourself or someone else? Patient reports no desire to harm self or others. Onset of symptoms was February 2024. 13:47 Acuity: ALEXIS 3 aa5 13:47 Method Of Arrival: EMS: [facility] aa5 Historical: - Allergies: 13:47 Darvocet-N 100; aa5 13:47 EGG/POULTRY; aa5 13:47 Iodine; aa5 13:47 Avfbpnb-Mpp-Wwt Reductase Inhibitor; aa5 - PMHx: 13:47 Arthritis; Back pain; Chronic pain; Hypertension; Kidney stones; Myocardial infarction; aa5 neuropathy; Rheumatoid Arthritis; 13:50 CHF; Kidney Cancer; Renal failure; aa5 - PSHx: 13:47 Stented artery; aa5 - Immunization history:: Adult Immunizations unknown. - Infectious Disease History:: Denies. - Social history:: Smoking status: Patient denies any tobacco usage or history of. Screenin:50 [facility] ED Fall Risk Assessment (Adult) History of falling in the last 3 months, aa5 including since admission No falls in past 3 months (0 pts) Confusion or Disorientation No (0 pts) Intoxicated or Sedated No (0 pts) Impaired Gait Yes (1 pt) Mobility Assist Device Used Yes (1 pt) Altered Elimination Yes (1 pt) Score/Fall Risk Level 3 or more points = High Risk Oriented to surroundings, Maintained a safe environment, Educated pt \T\ family on fall prevention, incl call for assistance when getting out of bed. Abuse screen: Denies threats or abuse. Nutritional screening: No deficits noted. Tuberculosis screening: No symptoms or risk factors identified. Assessment: 13:47 General: Appears comfortable, Behavior is calm, cooperative. Pain: Denies pain. Neuro: aa5 Level of Consciousness is awake, alert, obeys commands, Oriented to person, place, time, situation. Cardiovascular: Heart tones S1 S2 present Rhythm is regular. Respiratory: Airway is patent Respiratory effort is even, unlabored, Respiratory pattern is regular, symmetrical. GI: Abdomen is non-distended, Bowel sounds present X 4 quads. Abd is soft and non tender X 4 quads. Reports nausea, reports nausea x 1 month, reports vomited once. : Reports burning with urination. EENT: No signs and/or symptoms were reported regarding the EENT system. Derm: Skin is pink, warm \T\ dry. Reports burning to face and chest, no rash noted. Musculoskeletal: Range of motion: intact in all extremities. 14:40 Reassessment: Patient is alert, oriented x 3, equal unlabored respirations, skin aa5 warm/dry/pink. Pt's granddaughter at bedside. . 15:22 Reassessment: pending NS bolus completion before d/c home. . aa5 Vital Signs: 13:47 BP 183 / 81; Pulse 75; Resp 16 S; Temp 98.5(O); Pulse Ox 99% on R/A; aa5 14:49 BP 165 / 59; Pulse 62; Resp 18 S; Pulse Ox 100% on R/A; aa5 16:10 BP 157 / 63; Pulse 68; Resp 16; Temp 98.7; Pulse Ox 95% ; me1 ED Course: 13:46 Patient arrived in ED. aa5 13:46 [facility] Lemus [facility] sb4 13:46 Murphy Zuniga MD is Attending Physician. sb4 13:46 Arm band placed on. aa5 13:46 Patient has correct armband on for positive identification. Bed in low position. Call aa5 light in reach. Side rails up X2. Pulse ox on. NIBP on. 13:49 Nichole Rios, RN is Primary Nurse. aa5 13:52 Triage completed. aa5 13:59 Initial lab(s) drawn, by me, sent to lab. Inserted saline lock: 22 gauge in left tm3 antecubital area, using aseptic technique. 14:35 Provided Education on: POC. Verbalized understanding. . me1 14:38 Straight cath inserted, using sterile technique, 14 Fr. Specimen obtained. Returned aa5 clear yellow urine. Patient tolerated well. 14:52 No provider procedures requiring assistance completed. aa5 14:57 Rocky Lopez MD is Referral Physician. sb4 16:19 IV discontinued, intact, bleeding controlled, No redness/swelling at site. Pressure me1 dressing applied. Administered Medications: 13:59 Drug: Ondansetron IVP 4 mg IVP once; over 2 minutes Route: IVP; Site: left antecubital; aa5 14:36 Follow up: Response: No adverse reaction; Nausea is decreased me1 14:35 Drug: NS 0.9% IV 1000 ml IV at 1000 ml once; to be given as a bolus over 60 minutes me1 Route: IV; Rate: 1000 ml; Site: left antecubital; 16:05 Follow up: Response: No adverse reaction; IV Status: Completed infusion; IV Intake: me1 1000ml 15:49 Drug: MetoCLOPramide PO 10 mg PO once Route: PO; me1 16:05 Follow up: Response: No adverse reaction; Nausea is decreased me1 Medication: 14:49 VIS not applicable for this client. aa5 Intake: 16:05 IV: 1000ml; Total: 1000ml. me1 Outcome: 14:57 Discharge ordered by . sb4 16:19 Discharged to home via wheelchair, with family, me1 16:19 Condition: stable 16:19 Discharge instructions given to patient, family, Instructed on discharge instructions, follow up and referral plans. medication usage, Demonstrated understanding of instructions, follow-up care, medications, Prescriptions given X 1, 16:20 Patient left the ED. me1 Signatures: EsterArnoldo bautista tm3 Nichole Rios, RN RN aa5 Odette Lemus PA-C PAAnahi sb4 Cara Mai RN RN me1 Corrections: (The following items were deleted from the chart) 15:23 15:08 Response: No adverse reaction; IV Status: Completed infusion; IV Intake: 1000ml me1 me1
--- NOTE | 2024-03-05 14:58 | EDPHYS ---
Physician Documentation [facility] Name: Yeison Ellis Age: 83 yrs Sex: Female : 1940 Arrival Date: 03/05/2024 Time: 13:46 Bed 8 Private MD: ED Physician Murphy Zuniga HPI: 03/05 13:48 This 83 yrs old Female presents to ER via Unassigned with complaints of Nausea. sb4 13:52 patient presents with complaints of nausea x several months as well as burning with sb4 urination. reports 1 episode of emesis. no diarrhea. no fever. took zofran without significant improvement. also reports a burning sensation in her chest and face. Historical: - Allergies: 13:47 Darvocet-N 100; aa5 13:47 EGG/POULTRY; aa5 13:47 Iodine; aa5 13:47 Npcidyo-Wof-Wmx Reductase Inhibitor; aa5 - PMHx: 13:47 Arthritis; Back pain; Chronic pain; Hypertension; Kidney stones; Myocardial infarction; aa5 neuropathy; Rheumatoid Arthritis; 13:50 CHF; Kidney Cancer; Renal failure; aa5 - PSHx: 13:47 Stented artery; aa5 - Immunization history:: Adult Immunizations unknown. - Infectious Disease History:: Denies. - Social history:: Smoking status: Patient denies any tobacco usage or history of. ROS: 13:53 Constitutional: Negative for fever, chills, and weight loss, sb4 13:53 Abdomen/GI: Positive for nausea, 13:53 : Positive for burning with urination, 13:53 All other systems are negative, Exam: 13:53 Constitutional: This is a well developed, well nourished patient who is awake, alert, sb4 and in no acute distress. Head/Face: Normocephalic, atraumatic. Eyes: Extra-ocular motions intact. Periorbital areas with no swelling, redness, or edema. ENT: Mucous membranes moist. Cardiovascular: Regular rate and rhythm with a normal S1 and S2. Respiratory: No increased work of breathing, no retractions or nasal flaring. Abdomen/GI: Soft, non-tender, no distension. Skin: Warm, dry with normal turgor. Normal color with no rashes, no lesions, and no evidence of cellulitis. Vital Signs: 13:47 BP 183 / 81; Pulse 75; Resp 16 S; Temp 98.5(O); Pulse Ox 99% on R/A; aa5 14:49 BP 165 / 59; Pulse 62; Resp 18 S; Pulse Ox 100% on R/A; aa5 16:10 BP 157 / 63; Pulse 68; Resp 16; Temp 98.7; Pulse Ox 95% ; me1 MDM: 13:46 Medical Screening Exam initiated sb4 14:57 Data reviewed: vital signs, nurses notes, EMS record, lab test result(s), and as a sb4 result, I will discharge patient. Counseling: I had a detailed discussion with the patient and/or guardian regarding the historical points, exam findings, and any diagnostic results supporting the discharge/admit diagnosis, the presence of at least one elevated blood pressure reading (>120/80) during this emergency department visit, radiology results, the need for outpatient follow up, a topography technician, to return to the emergency department if symptoms worsen or persist or if there are any questions or concerns that arise at home. 03/05 13:47 Order name: CBC with Diff; Complete Time: 14:37 sb4 03/05 13:47 Order name: CMP; Complete Time: 14:28 sb4 03/05 13:47 Order name: Lipase; Complete Time: 14:28 sb4 03/05 13:47 Order name: Urinalysis w/ reflexes; Complete Time: 14:52 sb4 03/05 13:49 Order name: Troponin High Sensitivity; Complete Time: 14:28 sb4 03/05 13:47 Order name: IV Saline Lock; Complete Time: 13:59 sb4 03/05 13:47 Order name: Labs collected and sent; Complete Time: 13:59 sb4 03/05 14:37 Order name: Cath; Complete Time: 14:47 aa5 Administered Medications: 13:59 Drug: Ondansetron IVP 4 mg IVP once; over 2 minutes Route: IVP; Site: left antecubital; aa5 14:36 Follow up: Response: No adverse reaction; Nausea is decreased me1 14:35 Drug: NS 0.9% IV 1000 ml IV at 1000 ml once; to be given as a bolus over 60 minutes me1 Route: IV; Rate: 1000 ml; Site: left antecubital; 16:05 Follow up: Response: No adverse reaction; IV Status: Completed infusion; IV Intake: me1 1000ml 15:49 Drug: MetoCLOPramide PO 10 mg PO once Route: PO; me1 16:05 Follow up: Response: No adverse reaction; Nausea is decreased me1 Disposition: 18:44 Co-signature as Attending Physician, Murphy Zuniga MD I reviewed the patient's care rt provided by the Advanced Practice Provider and agree with the diagnosis and treatment plan. Disposition Summary: 03/05/24 14:57 Discharge Ordered Notes: Location: Home sb4 Problem: an ongoing problem sb4 Symptoms: have improved sb4 Condition: Stable sb4 Diagnosis - Nausea sb4 Followup: sb4 - With: Rocky Lopez MD - When: 2 - 3 days - Reason: Further diagnostic work-up, Recheck today's complaints, Re-evaluation by your physician Discharge Instructions: - Discharge Summary Sheet sb4 - Nausea, Adult sb4 Forms: - Patient Portal Instructions sb4 - Leadership Thank You Letter sb4 Prescriptions: - Reglan 10 mg Oral tablet - take 1 tablet ORAL route every 6 hours As needed take 30 minutes before meals sb4 and at bedtime; 20 tablet; Refills: 0, Product Selection Permitted Signatures: Dispatcher [employer] Nichole Brand, RN RN aa5 Odette Lemus PA-C PAAnahi sb4 Murphy Zuniga MD MD rt Cara Mai, RN RN me1
[2024-03-05] MEDS ORDERED: METOCLOPRAMIDE 10 MG/2mL INJ ONE (15:48)
[2024-03-05 16:34] VITALS: BP 157/63; TEMP 98.7; O2SAT 95
== END 2024-03-05 16:20 | disposition home or self-care (01) ==
LOC: ER 13:48
DX: R11.0 Nausea (principal); R30.0 Dysuria; Z85.528 Personal history of other malignant neoplasm of kidney; I13.0 Hypertensive heart and chronic kidney disease with heart failure and stage 1 through stage 4 chronic kidney disease, or unspecified chronic kidney disease; N18.9 Chronic kidney disease, unspecified; I50.9 Heart failure, unspecified
CPT/HCPCS: 96361; 85025; 81001; 36415; 84484; 83690; 80053; 51702; 96374; 99285; J2765; J2405; J7030

== ENCOUNTER 2024-03-24 09:19 | Emergency (ER) | payer OTHER ==
[2024-03-24] MEDS ORDERED: ONDANSETRON 4 MG/2 ML VIAL ONE (09:46)
[2024-03-24] MEDS ORDERED: FAMOTIDINE 20 MG/2 ML VIAL IV ONE (09:46)
[2024-03-24 10:18] LABS: Absolute Lymphocytes (CBC) 0.7 K/uL (0.7-4.9); Absolute Monocytes 0.4 K/uL (0.1-1.3); Absolute Neutrophil 5.9 K/uL (1.8-8.0); Basophils % 0.6 % (0-1.3); Eosinophils % 0.2 % (0-4.4); Hematocrit 33.7 % (36.0-45.0); Hemoglobin 11.5 g/dL (12.0-15.0); Lymphocytes % 9.3 % (15.3-44.8); MCH 30.2 pg (27.0-35.0); MCHC 34.2 g/dL (32.0-36.0); MCV 88.3 fL (80-100); MPV 7.3 fL (7.6-11.3); Monocytes % 5.3 % (3.3-12.3); Neutrophils % 84.6 % (41.7-73.7); Platelets 275 thou/uL (152-406); RBC Red Blood Cell Count 3.81 M/uL (3.86-4.86)
[2024-03-24 10:20] LABS: Albumin/Globulin Ratio 0.9 (1.1-1.8); Anion Gap 12.7 mEq/L (5.0-15.0); Bilirubin Total 0.4 mg/dL (0.2-1.0); Globulin 4.5 g/dL (2.3-3.5); Potassium 4.7 mEq/L (3.5-5.1); Protein, Total 8.5 g/dL (6.4-8.2)
--- NOTE | 2024-03-24 10:31 | RAD REPORT ---
EXAMINATION: CT ABDOMEN AND PELVIS WITHOUT CONTRAST CLINICAL INDICATION: ABD PAIN TECHNIQUE: CT abdomen and pelvis was performed, without IV contrast, as per department protocol. Axia l, sagittal and coronal reconstructions were obtained. One or more of the following dose reduction techniques were used: Automated exposure control, adjustment of the mA and kV according to the patien t size, and iterative reconstruction. Unless otherwise specified, incidental findings do not require dedicated imaging follow-up. COMPARISON: 12/29/2023 FINDINGS: The lack of intravenous contrast limits the sensitivity of this exam for evaluation of solid visceral organs, vascular structures, and retroperitoneum. LOWER CHEST: Mild linear atelectasis is seen in the left lung base. Lungs otherwise clear. LIVER:Normal in size and contour. No focal lesion. Cholecystectomy clips. SPLEEN: Normal size. No focal lesion. PANCREAS: No mass, ductal dilation, or ambar-pancreatic fluid. ADRENALS: Normal; no mass. KIDNEYS AND URETERS: Absent right kidney. Left kidney appears normal. URINARY BLADDER: Normal contour. GASTROINTESTINAL TRACT: No evidence of bowel obstruction, significant free fluid, free air or abscess . There is mild diverticulosis coli of the sigmoid colon without diverticulitis. APPENDIX: Normal appendix. LYMPH NODES: No lymphadenopathy. MUSCULOSKELETAL: Grade 1 anterolisthesis L4 on 5 is present. Moderate facet hypertrophy lower lumbar levels. ADDITIONAL FINDINGS: There is a small right inguinal hernia containing small section of the small int estine without evidence of obstruction or incarceration. IMPRESSION: No acute or concerning abnormalities in the abdomen or pelvis, with evaluation limited by lack of IV contrast. Small right inguinal hernia containing a small amount of the small bowel without obstruction or incar ceration findings.
[2024-03-24 12:52] LABS: Specific Gravity 1.009 (1.005-1.030); Sqamous Epithelial <5 /HPF (None Seen); Urine Bacteria None Seen /HPF (<20); Urine Bilirubin NEGATIVE (Negative); Urine Blood Negative (Negative); Urine Clarity Turbid (Clear); Urine Color Colorless (Yellow); Urine Culture Reflex Order NOT NEEDED; Urine Glucose TRACE (Negative); Urine Ketones NEGATIVE (Negative); Urine Microscopic Reflex YN ORDER UMIC; Urine Nitrite NEGATIVE (Negative); Urine Protein TRACE (Negative); Urine RBC None Seen /HPF (None Seen); Urine Urobilinogen Normal (Normal); Urine WBC <5 /HPF (<5); Urine pH 6.5 (5.0-7.0)
[2024-03-24] MEDS ORDERED: MORPHINE 2 MG/ML SYR ONE (13:06)
--- NOTE | 2024-03-24 13:16 | EDPHYS ---
Physician Documentation [facility] Name: Yeison Ellis Age: 83 yrs Sex: Female : 1940 Arrival Date: 03/24/2024 Time: 09:19 Bed 7 Private MD: ED Physician Aram López HPI: 03/24 10:45 This 83 yrs old Female presents to ER via EMS with complaints of Abdominal Pain. ms3 10:45 Yeison Fitzgerald is an 83-year-old female presenting to the emergency department ms3 with abdominal pain. For the past three days, she has experienced a lack of appetite and has not been eating. She reports pain in her entire lower abdomen and describes experiencing reflux sensations without any regurgitation. She also reports significant nausea but no vomiting, fever, chills, or diarrhea. Her past medical history includes hypertension and hyperlipidemia. She has previously had her gallbladder and appendix removed.. Historical: - Allergies: 09:23 Darvocet-N 100; ko1 09:23 EGG/POULTRY; ko1 09:23 Iodine; ko1 09:23 Mtxukih-Qxo-Elw Reductase Inhibitor; ko1 - PMHx: 09:23 Arthritis; Back pain; CHF; Chronic pain; Hypertension; kidney cancer; Kidney stones; ko1 Myocardial infarction; neuropathy; RENAL FAILURE; Rheumatoid Arthritis; - PSHx: 09:23 Stented artery; ko1 - Immunization history:: Adult Immunizations unknown. - Infectious Disease History:: Denies. - Social history:: Smoking status: Patient/guardian denies using tobacco, but has a distant history of tobacco abuse. ROS: 10:45 Constitutional: Negative for fever, and chills. Cardiovascular: Negative for chest ms3 pain, and palpitations. Respiratory: Negative for shortness of breath, cough, wheezing, and pleuritic chest pain, 10:45 MS/Extremity: Negative for injury and deformity, Skin: Negative for injury, rash, and discoloration, 10:45 Abdomen/GI: Positive for abdominal pain, Exam: 10:45 Constitutional: This is a well developed, well nourished patient who is awake, alert, ms3 and in no acute distress. Chest/axilla: Normal chest wall appearance and motion. Nontender with no deformity. Cardiovascular: Regular rate and rhythm with a normal S1 and S2. No gallops, murmurs, or rubs. Normal PMI, no JVD. No pulse deficits. Respiratory: Lungs have equal breath sounds bilaterally, clear to auscultation and percussion. No rales, rhonchi or wheezes noted. No increased work of breathing, no retractions or nasal flaring. 10:45 Abdomen/GI: Inspection: abdomen appears normal, Bowel sounds: normal, Palpation: moderate abdominal tenderness, in the suprapubic area, right lower quadrant and left lower quadrant, Vital Signs: 09:22 BP 183 / 72; Pulse 84; Resp 17; Temp 98.4; Pulse Ox 97% on R/A; ko1 11:34 BP 183 / 73; Pulse 77; Resp 16; Pulse Ox 100% ; ko1 12:30 BP 178 / 70; Pulse 72; Resp 18; Pulse Ox 100% ; ko1 13:30 BP 165 / 72; Pulse 74; Resp 16; Pulse Ox 99% ; ko1 MDM: 09:39 Medical Screening Exam initiated ms3 10:45 Differential diagnosis: diverticulitis, non-specific abd pain, urinary tract infection. ms3 13:51 Data reviewed: vital signs, nurses notes, lab test result(s), radiologic studies, and ms3 as a result, I will discharge patient. I considered the following discharge prescriptions or medication management in the emergency department Medications were administered in the Emergency Department. See MAR. Counseling: I had a detailed discussion with the patient and/or guardian regarding the historical points, exam findings, and any diagnostic results supporting the discharge/admit diagnosis, lab results, radiology results, the need for outpatient follow up, to return to the emergency department if symptoms worsen or persist or if there are any questions or concerns that arise at home. Special discussion: Based on the patient's Hx, exam, and Dx evaluation, there is no indication for emergent surgery or inpatient Tx. It is understood by the patient/guardian that if the Sx's persist or worsen they need to return immediately for re-evaluation. ED course: Discussed labs and imaging with patient and her daughter. Per patient's daughter patient sees Dr. Copeland and is scheduled to have endoscopy for the symptoms. They request prescription for antiemetic. Patient given promethazine suppositories. Patient to follow-up with Dr. Copeland in 2 to 3 days. All questions were answered. Return precautions discussed include worsening symptoms, or any other concerns.. 03/24 09:39 Order name: CBC with Diff; Complete Time: 10:26 ms3 03/24 09:39 Order name: CMP; Complete Time: 10:26 ms3 03/24 09:39 Order name: Lipase; Complete Time: 10:26 ms3 03/24 09:39 Order name: Urinalysis w/ reflexes; Complete Time: 12:54 ms3 03/24 10:01 Order name: Abdomen ; Complete Time: 10:39 EDMS 03/24 09:39 Order name: IV Saline Lock; Complete Time: 09:57 ms3 03/24 09:39 Order name: Labs collected and sent; Complete Time: 09:57 ms3 Administered Medications: 09:57 Drug: Famotidine IVP 20 mg IVP once; dilute with 10 mL 0.9% NaCl; give over 2 minutes ko1 Route: IVP; Site: right antecubital; 10:15 Follow up: Response: No adverse reaction ko1 09:58 Drug: Ondansetron IVP 4 mg IVP once; over 2 minutes Route: IVP; Site: right antecubital;ko1 10:13 Follow up: Response: No adverse reaction ko1 13:09 Drug: morphine IVP or IV 2 mg IVP once over 4 mins Route: IVP; Infused Over: 4 mins; kc6 Site: right antecubital; 13:24 Follow up: Response: No adverse reaction; Pain is decreased ko1 Disposition Summary: 03/24/24 13:16 Discharge Ordered Notes: Location: Home ms3 Condition: Stable ms3 Diagnosis - Lower abdominal pain, unspecified ms3 - Hypo-osmolality and hyponatremia ms3 - Essential (primary) hypertension ms3 - Anemia, unspecified ms3 Followup: ms3 - With: Moe Rodriguez DO - When: 2 - 3 days - Reason: Recheck today's complaints Discharge Instructions: - Discharge Summary Sheet ms3 - Abdominal Pain, Adult ms3 Forms: - Medication Reconciliation Form ms3 - Antibiotic Education ms3 - Prescription Opioid Use ms3 - Patient Portal Instructions ms3 - Leadership Thank You Letter ms3 Prescriptions: - promethazine 12.5 mg Rectal suppository - insert 1 suppository RECTAL route every 6 hours as needed for nausea and ms3 vomiting; 12 suppository; Refills: 0, Product Selection Permitted Signatures: Dispatcher [employer] EDMS Aram López, DO ms3 Steffanie Riojas, RN RN kc6 Arleth Robles RN RN ko1 Corrections: (The following items were deleted from the chart) 10:01 09:40 Abdomen Pelvis W Con+CT.RAD.BRZ ordered. EDMS EDMS
--- NOTE | 2024-03-24 13:16 | ER ---
Nurse's Notes [facility] Name: Yeison Ellis Age: 83 yrs Sex: Female : 1940 Arrival Date: 03/24/2024 Time: :19 Bed 7 Private MD: Diagnosis: Lower abdominal pain, unspecified;Hypo-osmolality and hyponatremia;Essential (primary) hypertension;Anemia, unspecified Presentation: 03/24 09:22 Chief complaint: EMS states: patient called for abdominal pain and nausea for 3 days, ko1 normal UOP and LBM 03/23 which was normal. Coronavirus screen: At this time, the client does not indicate any symptoms associated with coronavirus-19. Ebola Screen: No symptoms or risks identified at this time. Initial Sepsis Screen: Does the patient meet any 2 criteria? No. Patient's initial sepsis screen is negative. Does the patient have a suspected source of infection? No. Patient's initial sepsis screen is negative. Risk Assessment: Do you want to hurt yourself or someone else? Patient reports no desire to harm self or others. Onset of symptoms is unknown. 09:22 Method Of Arrival: EMS: [facility] ko1 09:22 Acuity: ALEXIS 3 ko1 Triage Assessment: 09:23 General: Appears in no apparent distress. Behavior is calm, cooperative, appropriate ko1 for age. Pain: Complains of pain in abdomen. EENT: No deficits noted. No signs and/or symptoms were reported regarding the EENT system. Neuro: No deficits noted. Cardiovascular: No deficits noted. Respiratory: No deficits noted. GI: Reports lower abdominal pain, upper abdominal pain, nausea. : No deficits noted. No signs and/or symptoms were reported regarding the genitourinary system. Derm: No deficits noted. No signs and/or symptoms reported regarding the dermatologic system. Musculoskeletal: No deficits noted. No signs and/or symptoms reported regarding the musculoskeletal system. Historical: - Allergies: 09: Darvocet-N 100; ko1 09:23 EGG/POULTRY; ko1 09:23 Iodine; ko1 09:23 Atvzmnk-Qrh-Xac Reductase Inhibitor; ko1 - PMHx: 09:23 Arthritis; Back pain; CHF; Chronic pain; Hypertension; kidney cancer; Kidney stones; ko1 Myocardial infarction; neuropathy; RENAL FAILURE; Rheumatoid Arthritis; - PSHx: 09:23 Stented artery; ko1 - Immunization history:: Adult Immunizations unknown. - Infectious Disease History:: Denies. - Social history:: Smoking status: Patient/guardian denies using tobacco, but has a distant history of tobacco abuse. Screenin:25 [facility] ED Fall Risk Assessment (Adult) History of falling in the last 3 months, ko1 including since admission No falls in past 3 months (0 pts) Confusion or Disorientation No (0 pts) Intoxicated or Sedated No (0 pts) Impaired Gait Yes (1 pt) Mobility Assist Device Used Yes (1 pt) Altered Elimination No (0 pt) Score/Fall Risk Level 0 - 2 = Low Risk Oriented to surroundings, Maintained a safe environment, Educated pt \T\ family on fall prevention, incl call for assistance when getting out of bed, Assessed \T\ reinforced patient's understanding of fall precautions, Provided non-skid footwear, Hourly rounding (assess needs \T\ fall precautionary measures) done. Abuse screen: Denies threats or abuse. Denies injuries from another. Nutritional screening: No deficits noted. Tuberculosis screening: No symptoms or risk factors identified. Assessment: :25 Reassessment: see triage note. ko1 11:00 GI: Bowel sounds present X 4 quads. Abd is soft and non tender X 4 quads. ko1 Vital Signs: 09:22 BP 183 / 72; Pulse 84; Resp 17; Temp 98.4; Pulse Ox 97% on R/A; ko1 11:34 BP 183 / 73; Pulse 77; Resp 16; Pulse Ox 100% ; ko1 12:30 BP 178 / 70; Pulse 72; Resp 18; Pulse Ox 100% ; ko1 13:30 BP 165 / 72; Pulse 74; Resp 16; Pulse Ox 99% ; ko1 ED Course: 09:21 Patient arrived in ED. ko1 09:22 Arleth Robles RN is Primary Nurse. ko1 09:22 Aram López DO is Attending Physician. ms3 09:23 Triage completed. ko1 09:23 Arm band placed on right wrist. Patient placed in an exam room, on a stretcher, on ko1 animal hospital clerk, on pulse oximetry, Patient notified of wait time. 09:25 Patient has correct armband on for positive identification. Allergy band placed. Fall ko1 risk band placed. Placed in gown. Bed in low position. Call light in reach. Side rails up X2. Provided Education on: labs, meds. Client placed on continuous cardiac and pulse oximetry monitoring. NIBP monitoring applied. svp of digital on. Door closed. Noise minimized. Lights dimmed. Warm blanket given. Pillow given. 09:57 CBC with Diff Sent. ko1 09:57 CMP Sent. ko1 09:57 Lipase Sent. ko1 09:58 Inserted saline lock: 20 gauge in right antecubital area, using aseptic technique. cc6 Blood collected. Flushed with 10 mL NS. 10:10 Abdomen In Process Unspecified. EDMS 13:16 Moe Rodriguez DO is Referral Physician. ms3 13:30 No provider procedures requiring assistance completed. ko1 13:56 IV discontinued, intact, bleeding controlled, No redness/swelling at site. Pressure ko1 dressing applied. Administered Medications: 09:57 Drug: Famotidine IVP 20 mg IVP once; dilute with 10 mL 0.9% NaCl; give over 2 minutes ko1 Route: IVP; Site: right antecubital; 10:15 Follow up: Response: No adverse reaction ko1 09:58 Drug: Ondansetron IVP 4 mg IVP once; over 2 minutes Route: IVP; Site: right antecubital;ko1 10:13 Follow up: Response: No adverse reaction ko1 13:09 Drug: morphine IVP or IV 2 mg IVP once over 4 mins Route: IVP; Infused Over: 4 mins; kc6 Site: right antecubital; 13:24 Follow up: Response: No adverse reaction; Pain is decreased ko1 Medication: 09:25 VIS not applicable for this client. ko1 Outcome: 13:16 Discharge ordered by . ms3 13:56 Discharged to home via wheelchair, with family, ko1 13:56 Condition: stable 13:56 Discharge instructions given to patient, family, Instructed on discharge instructions, follow up and referral plans. medication usage, Demonstrated understanding of instructions, follow-up care, medications, Prescriptions given X 1, 13:57 Patient left the ED. ko1 Signatures: Dispatcher [employer] EDMS Aram López DO DO ms3 Steffanie Riojas RN RN kc6 Arleth Robles RN RN ko1 Roselia Mark cc6
[2024-03-24 14:21] VITALS: TEMP 98.4
[2024-03-24 14:25] VITALS: BP 165/72; O2SAT 99
== END 2024-03-24 13:57 | disposition home or self-care (01) ==
LOC: ER 09:19
DX: R10.32 Left lower quadrant pain (principal); E87.1 Hypo-osmolality and hyponatremia; D64.9 Anemia, unspecified; I10 Essential (primary) hypertension; I50.9 Heart failure, unspecified
CPT/HCPCS: 85025; 81001; 36415; 83690; 80053; 74176; 96375; 96374; 99285; J2270; J2405